=== PATIENT | female | born 1940 | race African-American/Black ===

== ENCOUNTER 2017-05-01 18:01 | Emergency (ER) | payer MEDICARE, OTHER ==
--- NOTE | 2017-05-01 19:09 | ED ---
General Adult HPI - General Chief complaint: Fall Stated complaint: Fall rt side injuries Time Seen by Provider: 05/01/17 18:51 Source: patient, family, RN notes reviewed Mode of arrival: wheelchair Limitations: no limitations - History of Present Illness Initial comments: 76-year-old female presents to the emergency Department chief complaint of fall. Patient states that she was walking out of the office and she tripped on the sidewalk and fell. Patient states that she hit the front of her face and does think that she may have lost consciousness for seconds. Patient states that she has had a mild headache. Patient states there is no neck pain. Patient states that there has been no nausea or vomiting. Patient states she doesn't appear to have some right shoulder pain as well as left wrist pain as well as bilateral knee pain. Patient states the pain is mild worse to movement or touch she has noticed a little bit of swelling over the areas. Patient was able to ambulate after the incident. Patient denies any use of blood thinners. Patient was concerned due to the fall she just feels that she hit. Hard so she thought that she should be evaluated. Patient denies any recent fever, chills, shortness of breath, chest pain, back pain, abdominal pain, nausea vomiting, numbness or tingling, dysuria or hematuria, constipation or diarrhea, visual changes, or any other current symptoms. - Related Data Home Medications Medication Instructions Recorded Confirmed Dorzolamide HCl/Timolol Maleat 1 drop BOTH EYES BID 03/02/16 05/01/17 [Cosopt Eye Drops] Travoprost [Travatan Z 0.004%] 1 drop BOTH EYES HS 03/02/16 05/01/17 Multivitamins, Thera [Multivitamin] 1 tab PO DAILY 03/30/16 05/01/17 HYDROcodone/APAP 10-325MG [[place] 1 tab PO Q6H PRN 05/01/17 05/01/17 10-325] Morphine Sulfate [Ms Contin] 30 mg PO Q8HR 05/01/17 05/01/17 tiZANidine HCL [Zanaflex] 4 mg PO BID 05/01/17 05/01/17 Previous Rx's Medication Instructions Recorded Pregabalin [Lyrica] 75 mg PO TID #90 cap 09/21/16 Allergies Allergy/AdvReac Type Severity Reaction Status Date / Time codeine Allergy Itching Verified 05/01/17 19:01 ibuprofen [From Motrin] Allergy Unknown Verified 05/01/17 19:01 ketorolac tromethamine Allergy Unknown Verified 05/01/17 19:01 [From Toradol] Tetanus Vaccines and Toxoid Allergy Unknown Verified 05/01/17 19:01 [Tetanus Vaccines & Toxoid] Childhood tramadol HCl [From Ultram] AdvReac Unknown Verified 05/01/17 19:01 Review of Systems ROS Statement: Those systems with pertinent positive or pertinent negative responses have been documented in the HPI. ROS Other: All systems not noted in ROS Statement are negative. Past Medical History Past Medical History: CVA/TIA, Eye Disorder, Fibromyalgia, GERD/Reflux, Hyperlipidemia, Memory Impairment, Musculoskeletal Disorder, Osteoarthritis (OA) , Rheumatoid Arthritis (RA), Sleep Apnea/CPAP/BIPAP Additional Past Medical History / Comment(s): CHRONIC BACK PAIN, GLAUCOMA, CATARACT RIGHT EYE, HX OF ANEMIA, NO C-PAP MACHINE AT THIS TIME, HX OF CVA X2 IN 2009-DENIES ANY WEAKNESS OR PARALYSIS. USES WALKER. History of Any Multi-Drug Resistant Organisms: None Reported Past Surgical History: Back Surgery, Hysterectomy, Joint Replacement, Orthopedic Surgery Additional Past Surgical History / Comment(s): HX OF AUTO [id number] WITH MULTIPLE FACE AND HEAD SURGERYS TITANIUM IMPLANTS MOUTH,RECONSTRUCTED CHIN, ORBITS,FOREHEAD.SKULL? PLATE BUT PT NOT SURE., PAM KNEE REPLACEMENT, PAM NEWSOME REPLACEMENT. (3) BACK FUSIONS AND (2) LAMINECTOMYS. LEFT CATARACT SURGERY .BREAST BX-NEG, COLONOSCOPY.09/01/16 BACK SURGERY. Past Anesthesia/Blood Transfusion Reactions: No Reported Reaction Past Psychological History: Anxiety, Depression Smoking Status: Former smoker Past Alcohol Use History: None Reported Past Drug Use History: None Reported - Past Family History Brother(s) Family Medical History: Cancer Sister(s) Family Medical History: Cancer General Exam - General Exam Comments Initial Comments: General: The patient is awake and alert, in no distress, and does not appear acutely ill. Eye: Pupils are equal, round and reactive to light, extra-ocular movements are intact; there is normal conjunctiva bilaterally. No signs of icterus. Ears, nose, mouth and throat: There are moist mucous membranes. Neck: The neck is supple, there is no tenderness. Cardiovascular: There is a regular rate and rhythm. No murmur, rub or gallop is appreciated. Respiratory: Lungs are clear to auscultation, respirations are non-labored, breath sounds are equal. No wheezes, stridor, rales, or rhonchi. Gastrointestinal: Soft, non-distended, non-tender abdomen without masses or organomegaly noted. There is no rebound or guarding present. No CVA tenderness. Bowel sounds are unremarkable. Back: There is no tenderness to palpation in the midline. There is no obvious deformity. No rashes noted. Musculoskeletal: Normal ROM, there is minimal tenderness to palpation of the right wrist no anatomical snuffbox tenderness. Patient does appear to have some tenderness over the anterior aspect of the right knee minimal to the left knee. Small abrasion to the left foot. No bony tenderness. There is no pedal edema. There is no calf tenderness or swelling. Sensation intact. Pulses equal bilaterally 2+. Neurological: CN II-XII intact, There are no obvious motor or sensory deficits. Coordination appears grossly intact. Speech is normal. Skin: Skin is warm and dry and no rashes or lesions are noted. Psychiatric: Cooperative, appropriate mood & affect, normal judgment. Limitations: no limitations Course Vital Signs 05/01/17 05/01/17 18:08 20:23 Temperature 98.0 F 97.5 F L Pulse Rate 90 84 Respiratory 18 16 Rate Blood Pressure 128/101 145/86 O2 Sat by Pulse 98 97 Oximetry Medical Decision Making - Medical Decision Making 76-year-old female presents emergency 5 chief complaint of fall. This time all imaging is reviewed and negative. This time we discussed patient most likely suffering from contusions. We discussed Tylenol we discussed ice. We discussed resting. We discussed appropriate follow-up and return parameters. Patient family are in agreement with the plan all questions have been answered. They will be discharged home. - Radiology Data Radiology results: report reviewed, image reviewed Disposition Clinical Impression: Nasal contusion, Fall, Contusion of right shoulder, Contusion, knee, Abrasion of foot, left, Minor head injury Disposition: HOME SELF-CARE Condition: Stable Instructions: Fall Prevention for Older Adults (ED), Head Injury (ED) Additional Instructions: Please use medication as discussed. Please follow up with family doctor if symptoms have not improved over the next two days. Please return to the emergency room if your symptoms increase or worsen or for any other concerns. Referrals: Memo Morales MD [Primary Care Provider] - 1-2 days Time of Disposition: 20:30
--- NOTE | 2017-05-01 20:17 | CT ---
EXAMINATION TYPE: CT facial bones wo con DATE OF EXAM: 05/01/2017 COMPARISON: NONE HISTORY: Fall today. Frontal, nasal and chin injury. CT DLP: 550.80 mGycm Automated exposure control for dose reduction was used. TECHNIQUE: CT scan of the sinuses is performed without contrast, axial images are obtained, coronal r eformatted images are also reviewed. FINDINGS: There is a plate with screws fixing the right hemimandible. Mandible otherwise appears inta ct. The zygomatic arches are normal. There are bilateral screws in the zygoma related to old fracture s. There is no evidence of a acute blowout fracture. Orbital margins are intact. There is slight depr ession of the floor of the left orbit consistent with an old minimal blowout fracture. There is mucosal thickening at the left ostiomeatal complex. The nasal bone appears intact. There is no evidence of an orbital mass. The globes are symmetric. IMPRESSION: No acute fracture seen. Left-sided mild maxillary sinusitis. Old left-sided blowout fract ure.
--- NOTE | 2017-05-01 20:20 | CT ---
EXAMINATION TYPE: CT brain kaelyn marsh DATE OF EXAM: 05/01/2017 COMPARISON: 08/17/[address] scan HISTORY: Fall today. Frontal, nasal and chin injury. CT DLP: 1613.40 mGycm Automated exposure control for dose reduction was used. TECHNIQUE: CT scan of the head and cervical spine are performed without contrast. FINDINGS: There is mild cerebral cortical atrophy. There is no mass effect nor midline shift. There is no sign of intracranial hemorrhage. The calvarium is intact. There is straightening of the cervical vertebra. There is mild anterior spurring at C5-6 C6-7. Facet joints are intact. I see no fracture. The skull base is intact. IMPRESSION: No acute intracranial abnormality. Cerebral atrophy without change. Mild spondylosis in the cervical spine with mild straightening. No fracture.
--- NOTE | 2017-05-01 20:21 | XR ---
EXAMINATION TYPE: XR shoulder complete RT DATE OF EXAM: 05/01/2017 COMPARISON: NONE HISTORY: Pain TECHNIQUE: 3 views FINDINGS: I see no fracture nor dislocation. There is mild spurring of the humeral head. IMPRESSION: Mild spurring. No fracture seen.
--- NOTE | 2017-05-01 20:23 | XR ---
EXAMINATION TYPE: XR knee complete bilateral DATE OF EXAM: 05/01/2017 COMPARISON: NONE HISTORY: Pain after fall TECHNIQUE: 7 views FINDINGS: There are bilateral total knee prostheses. I see no fracture. Components appear in anatomic position. IMPRESSION: No fracture seen. No sign of loosening.
--- NOTE | 2017-05-01 20:24 | XR ---
EXAMINATION TYPE: XR wrist complete LT DATE OF EXAM: 05/01/2017 COMPARISON: NONE HISTORY: Pain TECHNIQUE: 4 views FINDINGS: I see no fracture nor dislocation. Joint spaces are normal. IMPRESSION: Negative left wrist exam.
[2017-05-01 20:41] VITALS: BP 151/79; PULSE 81; RESP 18; TEMP 97.6
== END 2017-05-01 20:35 | disposition home or self-care (01) ==
LOC: EC 18:01
DX: S00.33XA Contusion of nose, initial encounter (principal); S40.011A Contusion of right shoulder, initial encounter; S80.02XA Contusion of left knee, initial encounter; S90.812A Abrasion, left foot, initial encounter; M25.532 Pain in left wrist; M25.561 Pain in right knee; M79.7 Fibromyalgia; M19.90 Unspecified osteoarthritis, unspecified site; M06.9 Rheumatoid arthritis, unspecified; Z96.653 Presence of artificial knee joint, bilateral; Z87.891 Personal history of nicotine dependence; Z88.5 Allergy status to narcotic agent; Z88.6 Allergy status to analgesic agent; Z88.7 Allergy status to serum and vaccine; Z79.891 Long term (current) use of opiate analgesic; Z79.899 Other long term (current) drug therapy; W10.1XXA Fall (on)(from) sidewalk curb, initial encounter; Y93.01 Activity, walking, marching and hiking; Y99.0 Civilian activity done for income or pay; Y92.59 Other trade areas as the place of occurrence of the external cause
CPT/HCPCS: 70450; 70486; 72125; 99284

== ENCOUNTER 2017-05-17 10:10 | Day surgery (SDC) | payer MEDICARE, OTHER ==
[2017-05-17] MEDS ORDERED: LACTATED RINGERS 1,000 ML IV SCH (11:21)
[2017-05-17] MEDS ORDERED: LIDOCAINE 1% 20 ML VIAL (10MG/ML) FOR IV START INTRADERMA PRN (11:21)
[2017-05-17 11:32] VITALS: TEMP 98.4
[2017-05-17] MEDS ORDERED: PROPOFOL 10 MG/ML 20 ML VIAL IV ONE (12:20)
--- NOTE | 2017-05-17 12:44 | P.PCN ---
Date of Procedure: 05/17/17 Preoperative Diagnosis: Postoperative Diagnosis: Procedure(s) Performed: Brief history: Patient is a pleasant 76-year-old -[place] female, scheduled for an elective upper endoscopy as well as colonoscopy as a part of evaluation of abdominal pain mostly the lower abdomen and occasional epigastric area associated with some change in bowel habits for the last several months duration. She denies any rectal bleeding, no nausea vomiting. Procedure performed: Esophagogastroduodenoscopy with biopsy Colonoscopy Preoperative diagnosis: Abdominal pain, change in bowel habits Anesthesia: MAC Procedure: After informed consent was obtained from the patient was brought into the endoscopy unit and IV sedation was administered by anesthesia under continuous monitoring. Initially upper endoscopy was done. The Olympus GF 160 video endoscope was inserted inserted into the mouth and esophagus intubated without any difficulty and was gradually advanced into the stomach and duodenum and carefully examined. The bulb and second part of the duodenum appeared normal. The scope was then withdrawn into the stomach adequately insufflated with air and upon careful examination the antrum had mild gastritis and biopsies were done from this area. The body, cardia and fundus appeared normal. The scope was then withdrawn into the esophagus. The GE junction was located at 40 cm to the incisors. It appeared regular with no erythema erosions or ulcerations. Rest of the esophagus appeared normal. Patient tolerated the procedure well. At this time the patient continued to remain sedation. Initial digital rectal examination was normal. Olympus CF 160 video colonoscope was then inserted into the rectum and gradually advanced to the cecum without any difficulty. Careful examination was performed as the scope was gradually being withdrawn. The prep was excellent. The cecum, ascending colon, transverse colon, descending colon, sigmoid colon and rectum appeared normal. scattered left- sided diverticulosis seen. Retroflexion was performed in the rectum and no lesions were noted. Patient tolerated the procedure well. Impression: 1. Upper endoscopy revealed mild antral gastritis but no evidence of esophagitis or peptic ulcer disease 2. Colonoscopy revealed left-sided diverticulosis but no evidence of colitis or colorectal neoplasia Recommendations: Findings of this examination were discussed with the patient as well as her family. She was advised to follow with the biopsy results. She'll be seen in office in 2-3 weeks. Implants: Indications for Procedure: Operative Findings: Description of Procedure:
[2017-05-17] MEDS ORDERED: MEPERIDINE 50 MG/ML SYRINGE IVP ONE (13:06)
[2017-05-17 14:36] VITALS: BP 120/68; PULSE 74; RESP 18
== END 2017-05-17 14:20 | disposition home or self-care (01) ==
LOC: ORWHC2ENDO 10:10
PROVIDERS: ATTEND Internal Medicine Gastroenterology
DX: K57.30 Diverticulosis of large intestine without perforation or abscess without bleeding (principal); K29.50 Unspecified chronic gastritis without bleeding; R19.4 Change in bowel habit; Z79.899 Other long term (current) drug therapy; Z88.5 Allergy status to narcotic agent; G89.29 Other chronic pain
CPT/HCPCS: 43239; 88305; 88342

== ENCOUNTER → 2017-06-23 | Outpatient (CLI) | payer MEDICARE, OTHER ==
[2017-06-23 10:12] LABS: Blood Urea Nitrogen 20 mg/dL (7-17); Non-African American GFR(MDRD) >60 (>60 ml/min/1.73 sqM)
--- NOTE | 2017-06-23 13:46 | CT ---
EXAMINATION TYPE: CT abdomen pelvis w con DATE OF EXAM: 06/23/2017 COMPARISON: NONE HISTORY: Abdominal pain CT DLP: 1253 mGycm Automated exposure control for dose reduction was used. CONTRAST: CT scan of the abdomen pelvis is performed with IV Contrast, patient injected with 100 ml mL of Omnip aque 300. FINDINGS- LUNG BASES- No significant abnormality is appreciated. LIVER/GB-the gallbladder is dilated and there is intrahepatic delayed ductal dilation. There is a sim ple hepatic cyst within the right lobe measuring 1.4 cm. Additional hepatic cyst measuring 8 mm in th e dome of the liver. No definite gallbladder stone or biliary ductal stone. PANCREAS- No gross abnormality is seen. SPLEEN- No gross abnormality is seen. ADRENALS- No gross abnormality is seen. KIDNEYS/BLADDER- no hydronephrosis nephrolithiasis or renal mass. BOWEL- no bowel dilatation. Gas pattern nonspecific with no obstruction. Extensive retained fecal de bris within the right colon and cecum. LYMPH NODES- No greater than 1cm abdominal or pelvic lymph nodes areappreciated. OSSEOUS STRUCTURES-postsurgical changes involving the vertebral column noted. OTHER- there is a 2.4 cm cyst in the right adnexa. Uterus is not present. May represent a fallopian tube remnant or paraovarian cyst. If the ovaries were left in position ovarian cyst would also be in the differential diagnosis. Finding was present on the previous CT scan therefore likely benign. IMPRESSION- 1. The gallbladder is distended and there is intrahepatic biliary dilation. Correlate clinically. 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 2. Extensive retained fecal debris throughout the right colon correlate for constipation. 3. 2.4 cm right adnexal cyst as discussed above. Differential diagnosis includes ovarian cyst, paraov michelle cyst or fallopian tube remnant dilation.
== END | disposition home or self-care (01) ==
LOC: RADCTMAIN 09:20
PROVIDERS: ATTEND Internal Medicine Gastroenterology
DX: N83.8 Other noninflammatory disorders of ovary, fallopian tube and broad ligament (principal); K82.8 Other specified diseases of gallbladder
CPT/HCPCS: 82565; 84520; 74177; 36415; Q9967

== ENCOUNTER 2017-08-21 14:12 | Emergency (ER) | payer MEDICARE, OTHER ==
[2017-08-21 14:23] VITALS: BP 139/88; PULSE 88; RESP 20; TEMP 97.5
--- NOTE | 2017-08-21 14:49 | ED ---
Lower Extremity Injury HPI - General Chief Complaint: Extremity Injury, Lower Stated Complaint: fall/knee swelling Time Seen by Provider: 08/21/17 14:41 Source: patient, RN notes reviewed Mode of arrival: wheelchair Limitations: physical limitation - History of Present Illness Initial Comments: This a 77-year-old female presents emergency Department chief complaint left knee pain. Patient states that she is trying to into the bus states that she fell forward onto her left knee. Patient states she had a left knee replacement in 2011. Patient states she feels a pinching sensation in her anterior aspect of her knee. She states while is swollen though she did apply some ice the area. Patient is a chronic pain meds. Denies head injury no LOC. - Related Data Home Medications Medication Instructions Recorded Confirmed Dorzolamide HCl/Timolol Maleat 1 drop BOTH EYES BID 03/02/16 05/17/17 [Cosopt Eye Drops] Travoprost [Travatan Z 0.004%] 1 drop BOTH EYES HS 03/02/16 05/17/17 Multivitamins, Thera [Multivitamin] 1 tab PO DAILY 03/30/16 05/17/17 HYDROcodone/APAP 10-325MG [[place] 1 tab PO Q6H PRN 05/01/17 05/17/17 10-325] Morphine Sulfate [Ms Contin] 30 mg PO Q8HR 05/01/17 05/17/17 tiZANidine HCL [Zanaflex] 4 mg PO BID 05/01/17 05/17/17 Pregabalin [Lyrica] 25 mg PO TID 05/17/17 05/17/17 Allergies Allergy/AdvReac Type Severity Reaction Status Date / Time codeine Allergy Itching Verified 08/21/17 14:23 ibuprofen [From Motrin] Allergy Unknown Verified 08/21/17 14:23 ketorolac tromethamine Allergy Unknown Verified 08/21/17 14:23 [From Toradol] tramadol HCl [From Ultram] AdvReac Unknown Verified 08/21/17 14:23 tuberculin,PPD,multi-puncture AdvReac Unknown Verified 08/21/17 14:23 Review of Systems ROS Statement: Those systems with pertinent positive or pertinent negative responses have been documented in the HPI. ROS Other: All systems not noted in ROS Statement are negative. Past Medical History Past Medical History: CVA/TIA, Eye Disorder, Fibromyalgia, GERD/Reflux, Hyperlipidemia, Memory Impairment, Musculoskeletal Disorder, Osteoarthritis (OA) , Rheumatoid Arthritis (RA), Sleep Apnea/CPAP/BIPAP Additional Past Medical History / Comment(s): CHRONIC BACK PAIN, GLAUCOMA, CATARACT RIGHT EYE, HX OF ANEMIA, NO C-PAP MACHINE AT THIS TIME, HX OF CVA X2 IN 2010-DENIES ANY WEAKNESS OR PARALYSIS. USES WALKER. History of Any Multi-Drug Resistant Organisms: None Reported Past Surgical History: Back Surgery, Hysterectomy, Joint Replacement, Orthopedic Surgery Additional Past Surgical History / Comment(s): HX OF AUTO [id number] WITH MULTIPLE FACE AND HEAD SURGERYS TITANIUM IMPLANTS MOUTH,RECONSTRUCTED CHIN, ORBITS,FOREHEAD.SKULL? PLATE BUT PT NOT SURE., PAM KNEE REPLACEMENT, PAM NEWSOME REPLACEMENT. (3) BACK FUSIONS AND (2) LAMINECTOMYS. LEFT CATARACT SURGERY .BREAST BX-NEG, COLONOSCOPY.09/01/16 BACK SURGERY. Past Anesthesia/Blood Transfusion Reactions: No Reported Reaction Past Psychological History: Anxiety, Depression Smoking Status: Former smoker Past Alcohol Use History: None Reported Past Drug Use History: None Reported - Past Family History Brother(s) Family Medical History: Cancer Sister(s) Family Medical History: Cancer General Exam Limitations: physical limitation General appearance: alert, in no apparent distress Respiratory exam: Present: normal lung sounds bilaterally. Absent: respiratory distress, wheezes, rales, rhonchi, stridor Cardiovascular Exam: Present: regular rate, normal rhythm, normal heart sounds. Absent: systolic murmur, diastolic murmur, rubs, gallop, clicks Extremities exam: Present: other (Left knee there is full range of motion there is old surgical scar noted, patient has mild swelling on the anterior aspect with no obvious deformity no laxity there is mild tenderness to the left knee to the anterior lateral aspect, neurovascularly intact) Skin exam: Present: warm, dry, intact, normal color. Absent: rash Course Vital Signs 08/21/17 14:20 Temperature 97.5 F L Pulse Rate 88 Respiratory 20 Rate Blood Pressure 139/88 O2 Sat by Pulse 99 Oximetry Medical Decision Making - Medical Decision Making 77-year-old female was in the emergency room for fall left knee pain. Patient is stable Please were noted. Patient has good range of motion neurovascular intact. Patient be discharged return parameters were discussed. Patient is advised to rest, ice and elevate. She was also advised to follow up with her physician who performed the surgery. Disposition Clinical Impression: Contusion of left knee Disposition: HOME SELF-CARE Condition: Stable Instructions: Knee Pain (ED) Additional Instructions: Please return to the Emergency Department if symptoms worsen or any other concerns. Referrals: Memo Morales MD [Primary Care Provider] - 1-2 days Time of Disposition: 15:14
--- NOTE | 2017-08-21 15:02 | XR ---
Left knee HISTORY: Pain, fall 3 views of the left knee correlated to prior exam 05/01/2017 Patient is status post left knee arthroplasty. There is anatomic alignment. Bone mineralization is st able. No fracture or dislocation evident. Suprapatellar increased density is present. Small ossific d ensities present at this level are well-corticated and not felt likely to be acute. IMPRESSION: Stable postoperative findings. Joint effusion. Difficult to exclude small loose bodies.
== END 2017-08-21 15:20 | disposition home or self-care (01) ==
LOC: EC 14:12
DX: S80.02XA Contusion of left knee, initial encounter (principal); M79.7 Fibromyalgia; Z87.891 Personal history of nicotine dependence; Z88.5 Allergy status to narcotic agent; Z88.6 Allergy status to analgesic agent; Z91.09 Other allergy status, other than to drugs and biological substances; Z79.891 Long term (current) use of opiate analgesic; Z79.899 Other long term (current) drug therapy; W19.XXXA Unspecified fall, initial encounter
CPT/HCPCS: 99283

== ENCOUNTER 2018-02-09 08:42 | Inpatient (IN) | payer MEDICARE, OTHER ==
[2018-02-09] MEDS ORDERED: RX INFO: IV CONTRAST WAS GIVEN 1 EACH MISC MISCELLANE PRN (09:05)
[2018-02-09] MEDS ORDERED: SODIUM CHLORIDE 0.9% 1,000 ML IV STA (09:05)
--- NOTE | 2018-02-09 09:08 | ED ---
General Adult HPI - General Chief complaint: Abdominal Pain Stated complaint: Abd pain, weakness Time Seen by Provider: 02/09/18 08:55 Source: patient, RN notes reviewed Mode of arrival: wheelchair Limitations: no limitations - History of Present Illness Initial comments: Patient 77-year-old female presenting to the emergency room today with a chief complaint of abdominal pain over the last year. She does admit that she's been following up with doctor tomorrow for this. She states she had a CT of the abdomen over a year ago. States that she had both upper and lower scopes performed. Sit still experiencing discomfort over the last 2 weeks of appetite is been decreased. States she's lost 11 pounds. Patient denies anything that makes the pain better or worse. Describes it as a crampy type pain that comes and goes. States it starts in the left lower side radiates over to the right. Patient states it does remind her of some symptoms that she had years ago and is unsure if it was a diverticulitis. Patient mitts that she had diarrhea 2 weeks ago presented had a bowel movement over the last 6 days. Patient denies any recent fever, chills, shortness of breath, chest pain, dysuria or hematuria , headaches or visual changes, or any other complaints. - Related Data Home Medications Medication Instructions Recorded Confirmed Dorzolamide HCl/Timolol Maleat 2 drop BOTH EYES BID 03/02/16 02/09/18 [Cosopt Eye Drops] Travoprost [Travatan Z 0.004%] 1 drop BOTH EYES HS 03/02/16 02/09/18 HYDROcodone/APAP 10-325MG [Carlotta 1 tab PO QID PRN 05/01/17 02/09/18 10-325] Morphine Sulfate [Ms Contin] 30 mg PO Q8H 05/01/17 02/09/18 tiZANidine HCL [Zanaflex] 4 mg PO TID 05/01/17 02/09/18 Ciclopirox [Penlac] 1 applic TOPICAL Q72H 02/09/18 02/09/18 Pregabalin [Lyrica] 50 mg PO BID 02/09/18 02/09/18 Allergies Allergy/AdvReac Type Severity Reaction Status Date / Time codeine Allergy Itching Verified 02/09/18 09:24 ibuprofen [From Motrin] Allergy Unknown Verified 02/09/18 09:24 ketorolac tromethamine Allergy Unknown Verified 02/09/18 09:24 [From Toradol] tramadol HCl [From Ultram] AdvReac Unknown Verified 02/09/18 09:24 tuberculin,PPD,multi-puncture AdvReac Unknown Verified 02/09/18 09:24 Review of Systems ROS Statement: Those systems with pertinent positive or pertinent negative responses have been documented in the HPI. ROS Other: All systems not noted in ROS Statement are negative. Past Medical History Past Medical History: CVA/TIA, Eye Disorder, Fibromyalgia, GERD/Reflux, Hyperlipidemia, Memory Impairment, Musculoskeletal Disorder, Osteoarthritis (OA) , Rheumatoid Arthritis (RA), Sleep Apnea/CPAP/BIPAP Additional Past Medical History / Comment(s): CHRONIC BACK PAIN, GLAUCOMA, CATARACT RIGHT EYE, HX OF ANEMIA, NO C-PAP MACHINE AT THIS TIME, HX OF CVA X2 IN 2009-DENIES ANY WEAKNESS OR PARALYSIS. USES WALKER. History of Any Multi-Drug Resistant Organisms: None Reported Past Surgical History: Back Surgery, Hysterectomy, Joint Replacement, Orthopedic Surgery Additional Past Surgical History / Comment(s): HX OF AUTO [id number] WITH MULTIPLE FACE AND HEAD SURGERYS TITANIUM IMPLANTS MOUTH,RECONSTRUCTED CHIN, ORBITS,FOREHEAD.SKULL? PLATE BUT PT NOT SURE., PAM KNEE REPLACEMENT, PAM NEWSOME REPLACEMENT. (3) BACK FUSIONS AND (2) LAMINECTOMYS. LEFT CATARACT SURGERY .BREAST BX-NEG, COLONOSCOPY.09/01/16 BACK SURGERY. Past Anesthesia/Blood Transfusion Reactions: No Reported Reaction Past Psychological History: Anxiety, Depression Smoking Status: Former smoker Past Alcohol Use History: None Reported Past Drug Use History: None Reported - Past Family History Brother(s) Family Medical History: Cancer Sister(s) Family Medical History: Cancer General Exam - General Exam Comments Initial Comments: General: The patient is awake and alert, in no distress, and does not appear acutely ill. Eye: Pupils are equal, round and reactive to light, extra-ocular movements are intact. No nystagmus. There is normal conjunctiva bilaterally. No signs of icterus. Ears, nose, mouth and throat: There are moist mucous membranes and no oral lesions. Neck: The neck is supple, there is no tenderness or JVD. Cardiovascular: There is a regular rate and rhythm. No murmur, rub or gallop is appreciated. Respiratory: Lungs are clear to auscultation, respirations are non-labored, breath sounds are equal. No wheezes, stridor, rales, or rhonchi. Gastrointestinal: Abdomen soft on palpation. Patient does have tenderness both right and left lower quadrants. Patient tender left CVA. No rebound tenderness. No guarding. Musculoskeletal: Normal ROM, no tenderness. Strength 5/5. Sensation intact. Pulses equal bilaterally 2+. Neurological: A&O x 3. CN II-XII intact, There are no obvious motor or sensory deficits. Coordination appears grossly intact. Speech is normal. Skin: Skin is warm and dry and no rashes or lesions are noted. Psychiatric: Cooperative, appropriate mood & affect, normal judgment. Limitations: no limitations Course Vital Signs 02/09/18 02/09/18 02/09/18 08:45 10:18 10:27 Temperature 98.6 F Pulse Rate 92 77 76 Respiratory 17 20 18 Rate Blood Pressure 140/74 169/103 139/78 O2 Sat by Pulse 100 100 97 Oximetry 02/09/18 02/09/18 02/09/18 12:05 13:56 14:20 Temperature Pulse Rate 76 75 78 Respiratory 18 18 18 Rate Blood Pressure 190/98 170/80 144/67 O2 Sat by Pulse 98 99 98 Oximetry 02/09/18 14:51 Temperature Pulse Rate 75 Respiratory 18 Rate Blood Pressure 183/90 O2 Sat by Pulse 98 Oximetry - Reevaluation(s) Reevaluation #1: 02/09/18 10:18 Patient daughter at bedside came on [facility] nursing staff that her mother was expressing some chest discomfort. She describes it on left side of the chest wall rating to the armpit. Patient states it just started. She denies any other complaints. EKG reviewed at 1013: Shows normal EKG no acute abnormality. Patient will be given aspirin and sublingual nitro to see if it resolves her pain. Labs are pending cardiac enzymes have been added. EKG Findings - EKG Comments: EKG Findings:: EKG performed at 1013: Shows normal sinus rhythm at 75 bpm. MN interval 148. QRS 86. QT/QTC 382/426. No acute ST changes. Repeat EKG performed at 1209: Shows normal sinus rhythm at 68 beats per minute. MN interval 152. QRS 84. QT/QTc is 412/438. No acute change. Medical Decision Making - Medical Decision Making Patient's CT the abdomen and pelvis reviewed shows 1 Location of the cecum within the mid abdomen extending to the left mid abdomen. Consideration is for wandering cecum or currently decompressed volvulus as there is no current obstruction identified. 2. 2.7 cm right adnexal cystic mass, enlarged from prior. Nonemergent further evaluation with pelvic ultrasound is recommended to evaluate for cystic ovarian neoplasm as ovarian cyst should not be present in the patient's age group. As read by radiologist Dr. Toure. Patient's labs been reviewed. Negative cardiac enzymes. Patient did begin to have chest pain here in emergency room. Screening chest pain free at this time she was given nitro and aspirin. Patient urinalysis does show evidence for infection with positive nitrates and white cells. Will be started on Rocephin here in emergency room. - Lab Data Result diagrams: 02/09/18 10:57 02/09/18 10:57 Lab Results 02/09/18 02/09/18 02/09/18 Range/Units 09:40 10:15 10:57 WBC 5.5 (3.8-10.6) k/uL RBC 4.49 (3.80-5.40) m/uL Hgb 11.7 (11.4-16.0) gm/dL Hct 36.2 (34.0-46.0) % MCV 80.6 (80.0-100.0) fL MCH 26.1 (25.0-35.0) pg MCHC 32.4 (31.0-37.0) g/dL RDW 13.5 (11.5-15.5) % Plt Count 187 (150-450) k/uL Neutrophils % 49 % Lymphocytes % 40 % Monocytes % 5 % Eosinophils % 2 % Basophils % 0 % Neutrophils # 2.7 (1.3-7.7) k/uL Lymphocytes # 2.2 (1.0-4.8) k/uL Monocytes # 0.3 (0-1.0) k/uL Eosinophils # 0.1 (0-0.7) k/uL Basophils # 0.0 (0-0.2) k/uL Sodium (137-145) mmol/L Potassium (3.5-5.1) mmol/L Chloride (98-107) mmol/L Carbon Dioxide (22-30) mmol/L Anion Gap mmol/L BUN (7-17) mg/dL Creatinine (0.52-1.04) mg/dL Est GFR (CKD-EPI)AfAm (>60 ml/min/1.73 sqM) Est GFR (CKD-EPI)NonAf (>60 ml/min/1.73 sqM) Glucose (74-99) mg/dL POC Glucose (mg/dL) 102 H (75-99) mg/dL POC Glu Missile Tracking Technician ID Emelia aTpia Calcium (8.4-10.2) mg/dL Total Bilirubin (0.2-1.3) mg/dL AST (14-36) U/L ALT (9-52) U/L Alkaline Phosphatase (38-126) U/L Total Creatine Kinase (30-135) U/L CK-MB (CK-2) (0.0-2.4) ng/mL CK-MB (CK-2) Rel Index Troponin I (0.000-0.034) ng/mL Total Protein (6.3-8.2) g/dL Albumin (3.5-5.0) g/dL Amylase (30-110) U/L Lipase (23-300) U/L Urine Color Yellow Urine Appearance Cloudy H (Clear) Urine pH 5.5 (5.0-8.0) Ur Specific [place] 1.015 (1.001-1.035) Urine Protein Trace H (Negative) Urine Glucose (UA) Negative (Negative) Urine Ketones Negative (Negative) Urine Blood Negative (Negative) Urine Nitrite Positive H (Negative) Urine Bilirubin Negative (Negative) Urine Urobilinogen <2.0 (<2.0) mg/dL Ur Leukocyte Esterase Large H (Negative) Urine RBC 1 (0-5) /hpf Urine WBC 58 H (0-5) /hpf Ur Squamous Epith Cells <1 (0-4) /hpf Urine Bacteria Many H (None) /hpf Hyaline Casts 12 H (0-2) /lpf Urine Mucus Few H (None) /hpf 02/09/18 02/09/18 Range/Units 10:57 10:57 WBC (3.8-10.6) k/uL RBC (3.80-5.40) m/uL Hgb (11.4-16.0) gm/dL Hct (34.0-46.0) % MCV (80.0-100.0) fL MCH (25.0-35.0) pg MCHC (31.0-37.0) g/dL RDW (11.5-15.5) % Plt Count (150-450) k/uL Neutrophils % % Lymphocytes % % Monocytes % % Eosinophils % % Basophils % % Neutrophils # (1.3-7.7) k/uL Lymphocytes # (1.0-4.8) k/uL Monocytes # (0-1.0) k/uL Eosinophils # (0-0.7) k/uL Basophils # (0-0.2) k/uL Sodium 142 (137-145) mmol/L Potassium 4.9 (3.5-5.1) mmol/L Chloride 106 (98-107) mmol/L Carbon Dioxide 25 (22-30) mmol/L Anion Gap 11 mmol/L BUN 13 (7-17) mg/dL Creatinine 0.59 (0.52-1.04) mg/dL Est GFR (CKD-EPI)AfAm >90 (>60 ml/min/1.73 sqM) Est GFR (CKD-EPI)NonAf >90 (>60 ml/min/1.73 sqM) Glucose 87 (74-99) mg/dL POC Glucose (mg/dL) (75-99) mg/dL POC Glu Missile Tracking Technician ID Calcium 8.9 (8.4-10.2) mg/dL Total Bilirubin 0.5 (0.2-1.3) mg/dL AST 34 (14-36) U/L ALT 24 (9-52) U/L Alkaline Phosphatase 72 (38-126) U/L Total Creatine Kinase 83 (30-135) U/L CK-MB (CK-2) 0.7 (0.0-2.4) ng/mL CK-MB (CK-2) Rel Index 0.8 Troponin I <0.012 (0.000-0.034) ng/mL Total Protein 7.2 (6.3-8.2) g/dL Albumin 4.1 (3.5-5.0) g/dL Amylase 60 (30-110) U/L Lipase 18 L (23-300) U/L Urine Color Urine Appearance (Clear) Urine pH (5.0-8.0) Ur Specific [place] (1.001-1.035) Urine Protein (Negative) Urine Glucose (UA) (Negative) Urine Ketones (Negative) Urine Blood (Negative) Urine Nitrite (Negative) Urine Bilirubin (Negative) Urine Urobilinogen (<2.0) mg/dL Ur Leukocyte Esterase (Negative) Urine RBC (0-5) /hpf Urine WBC (0-5) /hpf Ur Squamous Epith Cells (0-4) /hpf Urine Bacteria (None) /hpf Hyaline Casts (0-2) /lpf Urine Mucus (None) /hpf Disposition Clinical Impression: UTI (urinary tract infection), Abdominal pain, Chest pain, Pelvic mass Disposition: ADMITTED IP TO THIS HOSP Condition: Stable Referrals: Memo Morales MD [Primary Care Provider] - 1-2 days Time of Disposition: 14:34
[2018-02-09 09:53] LABS: Appearance,Urine Cloudy (Clear); Bacteria,Urine Many /hpf; Bilirubin,Urine Negative (Negative); Blood,Urine Negative (Negative); Color,Urine Yellow; Glucose,Urine (UA) Negative (Negative); Hyaline Casts,Urine 12 /lpf (0-2); Ketones,Urine Negative (Negative); Leukocyte Esterase,Urine Large (Negative); Mucus,Urine Few /hpf; Nitrite,Urine Positive (Negative); PH, Urine 5.5 (5.0-8.0); Protein,Urine Trace (Negative); RBC,Urine 1 /hpf (0-5); Specific Gravity,Urine 1.015 (1.001-1.035); Squamous Epithelial Cell,Urine <1 /hpf (0-4); Urobilinogen,Urine <2.0 mg/dL (<2.0); WBC,Urine 58 /hpf (0-5)
[2018-02-09] MEDS ORDERED: NITROGLYCERIN SL TABS 0.4 MG TAB SUBLINGUAL STA (10:17)
[2018-02-09] MEDS ORDERED: ASPIRIN 81 MG PO STA (10:17)
[2018-02-09 10:30] LABS: Glucose,Whole Blood 102 mg/dL (75-99)
[2018-02-09 11:16] LABS: Basophils % (A) 0 %; Eosinophils # (A) 0.1 k/uL (0-0.7); Eosinophils % (A) 2 %; HCT 36.2 % (34.0-46.0); HGB 11.7 gm/dL (11.4-16.0); Lymphocytes # (A) 2.2 k/uL (1.0-4.8); Lymphocytes % (A) 40 %; MCH 26.1 pg (25.0-35.0); MCHC 32.4 g/dL (31.0-37.0); MCV 80.6 fL (80.0-100.0); Mean Platelet Volume 7.4; Monocytes # (A) 0.3 k/uL (0-1.0); Monocytes % (A) 5 %; Neutrophils # (A) 2.7 k/uL (1.3-7.7); Neutrophils % (A) 49 %; Platelet Count 187 k/uL (150-450); RBC 4.49 m/uL (3.80-5.40); RDW 13.5 % (11.5-15.5); WBC 5.5 k/uL (3.8-10.6)
[2018-02-09 11:38] LABS: Creatine Kinase 83 U/L (30-135)
[2018-02-09 11:51] LABS: Creatine Kinase MB 0.7 ng/mL (0.0-2.4); Troponin I <0.012 ng/mL (0.000-0.034)
[2018-02-09 12:15] LABS: ALT 24 U/L (9-52); AST 34 U/L (14-36); Albumin 4.1 g/dL (3.5-5.0); Alkaline Phosphatase 72 U/L (38-126); Amylase 60 U/L (30-110); Anion Gap 11 mmol/L; Blood Urea Nitrogen 13 mg/dL (7-17); Calcium 8.9 mg/dL (8.4-10.2); Carbon Dioxide 25 mmol/L (22-30); Chloride 106 mmol/L (98-107); Glucose 87 mg/dL (74-99); Lipase 18 U/L (23-300); Potassium 4.9 mmol/L (3.5-5.1); Sodium 142 mmol/L (137-145); Total Bilirubin 0.5 mg/dL (0.2-1.3); Total Protein 7.2 g/dL (6.3-8.2)
[2018-02-09] MEDS ORDERED: MORPHINE SULFATE 4 MG/ML SYRINGE IVP STA ×2 (12:53→14:50)
--- NOTE | 2018-02-09 14:10 | CT ---
EXAMINATION TYPE: CT abdomen pelvis w con DATE OF EXAM: 02/09/2018 HISTORY: c/o abdominal pain and cramping CT DLP: 1210mGycm Automated Exposure Control for Dose Reduction was Utilized. CONTRAST: CT scan of the abdomen and pelvis is performed with IV Contrast, patient injected with 100 mL of Isov ue 300. COMPARISON: None. FINDINGS: LUNG BASES: Minimal bibasilar subsegmental atelectasis. LIVER/GB: Numerous hypoattenuated subcentimeter hepatic lesions were seen on the prior exam of 017 and addition to intrahepatic and extra hepatic biliary ductal dilatation. The largest hepatic cys t is seen within segment IVb measuring 1.5 cm. These findings are also similar to the prior exam of . PANCREAS: There is pancreatic probable atrophy without ductal dilatation. SPLEEN: No significant abnormality is seen. ADRENALS: No significant abnormality is seen. KIDNEYS: Kidneys enhance symmetrically without hydronephrosis. BOWEL: The cecum is grossly displaced within the mid abdomen to the left mid abdomen with the appendi x seen on the left. However no proximal dilatation of small bowel is identified or twisting to indica te current volvulus. Large amount retained colonic stool is noted. There is slight obscuration second patricia to extensive spray artifact from lumbar fusion. Numerous colonic diverticula are present without pericolonic fat stranding UTERUS/ADNEXA: There is a 2.8 cm cystic lesion within the right adnexa, enlarged from the prior. Uter us appears surgically absent or significantly atrophic LYMPH NODES: No greater than 1cm abdominal or pelvic lymph nodes are appreciated. OSSEOUS STRUCTURES: Multilevel degenerative change and postsurgical change are seen of the spine. No suspicious osseous lesion.. IMPRESSION: 1. Grossly abnormal location of the cecum within the mid abdomen extending to the left mid abdomen. C onsideration is for wandering cecum or currently decompressed volvulus as there is no current obstruc tion identified. 2. 2.7 cm right adnexal cystic mass, enlarged from the prior. Nonemergent further evaluation with pel savi ultrasound is recommended to evaluate for cystic ovarian neoplasm is ovarian cyst should not be p resent in this patient's age group.
[2018-02-09] MEDS ORDERED: cefTRIAXone IN SWFI 1,000 MG/10 ML SYRINGE IVP STA (14:52)
[2018-02-09] MEDS ORDERED: ONDANSETRON 4 MG/2 ML VIAL IVP PRN (15:01)
[2018-02-09] MEDS ORDERED: NALOXONE 0.4 MG/ML 1 ML VIAL IV PRN (15:01)
[2018-02-09] MEDS ORDERED: MORPHINE SULFATE 4 MG/ML SYRINGE IV PRN (15:01)
[2018-02-09] MEDS ORDERED: SODIUM CHLORIDE 0.9% 1,000 ML IV ONE (15:01)
[2018-02-09] MEDS ORDERED: NITROGLYCERIN SL TABS 0.4 MG TAB SUBLINGUAL PRN (15:20)
[2018-02-09] MEDS ORDERED: hydrALAZINE HCL 20 MG/ML 1 ML VIAL IVP STA (16:18)
[2018-02-09] MEDS: LORazepam 2 MG/ML INJ IV PRN (16:24)
[2018-02-09 17:46] LABS: Creatine Kinase 96 U/L (30-135)
[2018-02-09 17:59] LABS: Creatine Kinase MB 0.8 ng/mL (0.0-2.4); Troponin I <0.012 ng/mL (0.000-0.034)
[2018-02-09 23:09] LABS: Creatine Kinase 88 U/L (30-135)
[2018-02-09 23:22] LABS: Creatine Kinase MB 0.6 ng/mL (0.0-2.4); Troponin I <0.012 ng/mL (0.000-0.034)
--- NOTE | 2018-02-10 04:39 | HP ---
HISTORY AND PHYSICAL DATE OF SERVICE: 02/09/2018. CHIEF COMPLAINT: Abdominal pain and constipation. I am covering for Dr. Morales. HISTORY OF PRESENT ILLNESS: This 77-year-old woman with a past medical history of fibromyalgia, GERD, history of DJD, history of rheumatoid arthritis, chronic pain syndrome, anxiety, depression being followed by Dr. Morales in the outpatient setting. The patient has been having abdominal discomfort for the last 10 days. Patient had significantly reduced p.o. intake. The pain was starting in the lower part, like a bandlike sensation. The patient apparently lost several pounds and because of increased abdominal pain, distention and other issues, the patient came to [facility] and was admitted for evaluation and treatment. The patient had in [address] Spann including upper and lower endoscopes which did not show any acute abnormality. There is no history of fever, rigors or chills. No history of headache, loss of consciousness, seizures. PAST MEDICAL HISTORY: History fibromyalgia, GERD, hyperlipidemia, history of memory impairment, DJD, rheumatoid arthritis. MEDICATIONS: Home medications are: 1. Zanaflex 4 mg p.o. t.i.d. 2. Travatan 0.04% 1 drop both eyes q.h.s. 3. Lyrica 50 mg b.i.d. 4. MS Contin 30 mg q.8h. 5. [place] 1 tablet q.i.d. p.r.n. 6. Cosopt 2 drops b.i.d. 7. Penlac 1 application q.72h hours. ALLERGIES: ARE CODEINE, IBUPROFEN, KETORALAC, ULTRAM . FAMILY HISTORY: History of cancer in the family. SOCIAL HISTORY: Previous history of smoking. No alcohol intake. REVIEW OF SYSTEMS: ENT: No diminished vision or hearing. CARDIOVASCULAR: No angina or palpitations. Respiratory: No cough or hemoptysis. GI as mentioned earlier. : No dysuria. Nervous system: No numbness, weakness. Allergy/ Immunology: No asthma or hayfever. Musculoskeletal as mentioned earlier. Hematology/ Oncology: No history of anemia. Endocrine no history of diabetes or hypothyroidism. CONSTITUTIONAL: As mentioned earlier. Dermatology: Negative. Rheumatology: Negative. Psychiatry: As mentioned earlier. PHYSICAL EXAM: Patient is alert, oriented x3. Pulse is 81, blood pressure 120/50, respiratory 20, temperature 98.1, pulse ox 98% 2 L. HEENT: Conjunctivae normal. Oral mucosa moist. Neck is no jugular venous distention. No carotid bruit. No lymph node enlargement. Cardiovascular system: S1, S2. No S3, no S4. Respiratory: Breath sounds diminished in the bases. No rhonchi. No crackles. ABDOMEN: Soft. Mild diffuse discomfort on palpation. No guarding. No rigidity. No mass palpable. Bowel sounds present. No ascites. Legs: No edema and no swelling. NERVOUS SYSTEM: Higher functions as mentioned. Moves all 4 limbs. No focal motor or sensory deficits. Lymphatics: No lymph nodes palpable in the neck, axillae or groin. SKIN: No ulcer, rashes or bleeding. LABS: CBC within normal limits and CMP within normal limits. UA noted. CT scan of the abdomen and pelvis was noted which showed grossly abnormal occasional cecum in the mid abdomen, in the left mid abdomen, wandering cecum or decompressed volvulus and constipation. ASSESSMENT: 1. Abdominal pain and constipation possibly secondary to constipation. 2. Rule out volvulus or displaced wandering cecum. 3. 2.7 cm right adnexal cystic mass. 4. Urinary tract infection. 5. History of cerebrovascular accident, transient ischemic attack. 6. Fibromyalgia. 7. Gastroesophageal reflux disease. 8. Hyperlipidemia. 9. Degenerative joint disease. 10.Rheumatoid arthritis. 11.Chronic pain syndrome. 12.Sleep apnea. 13.Anxiety, depression. 14.Remote history of nicotine dependence. RECOMMENDATIONS AND DISCUSSION: This 77-year-old woman who presented with multiple complex medical issues, we will monitor the patient closely, continue the current medications, symptomatic treatment, management and will initiate continue the broad-spectrum IV antibiotics. Otherwise I would recommend a gastroenterology consultation with Dr. Spann for continued followup. Otherwise continue the home medications. Guarded prognosis because of multiple complex medical issues. Further recommendations to follow. A copy of dictation being forwarded to Dr. Morales who is the primary physician. DVT prophylaxis. See orders for further details. MMODL / IJN: [id number] / MTDD
[2018-02-10] MEDS: LORazepam 2 MG/ML INJ IV PRN ×2 (04:50→16:16)
[2018-02-10 05:53] LABS: ALT 26 U/L (9-52); AST 21 U/L (14-36); Albumin 3.8 g/dL (3.5-5.0); Alkaline Phosphatase 67 U/L (38-126); Anion Gap 11 mmol/L; Blood Urea Nitrogen 11 mg/dL (7-17); Calcium 9.3 mg/dL (8.4-10.2); Carbon Dioxide 27 mmol/L (22-30); Chloride 104 mmol/L (98-107); Cholesterol 206 mg/dL (<200); Glucose 90 mg/dL (74-99); HDL Cholesterol 36 mg/dL (40-60); LDL Cholesterol,Calculated 147 mg/dL (0-99); Potassium 3.8 mmol/L (3.5-5.1); Sodium 142 mmol/L (137-145); Total Bilirubin 0.3 mg/dL (0.2-1.3); Total Protein 6.5 g/dL (6.3-8.2); Triglycerides 116 mg/dL (<150)
[2018-02-10] MEDS: MORPHINE SULFATE ER 30 MG TABLET PO SCH ×3 (05:59→17:39)
[2018-02-10] MEDS: cefTRIAXone IN SWFI 1,000 MG/10 ML SYRINGE IVP SCH (08:40)
[2018-02-10] MEDS: DORZOLAMIDE-TIMOLOL 2-0.5% DROPS 10 ML BTL BOTH EYES SCH ×2 (08:42→20:31)
--- NOTE | 2018-02-10 08:43 | P.CRDCN ---
History of Present Illness Consult date: 02/10/18 Requesting physician: Hector Hall Consult reason: chest pain Chief complaint: Abdominal pain and cramping History of present illness: This is a 77-year-old -[place] female with no prior documented history of hypertension, no diabetes, no hyperlipidemia, nonsmoker. She presents to the hospital with symptoms of abdominal pain, cramping. She states that over the past week she has hardly eat anything, because she's afraid of what it is due to her abdomen. She has not moved her bowels in one week according to her. Patient did undergo an EGD and colonoscopy in May of last year which revealed mild antral gastritis but no evidence for esophagitis or peptic ulcer disease. Colonoscopy revealed left-sided diverticulosis but no evidence of colitis or colorectal neoplasia. Patient states that since that time, she has continued to have abdominal discomfort. Patient had one episode of burning epigastric discomfort which caused her to have some belching, for this reason a cardiology consultation was requested. She states she also had one episode where she felt a pain in the left side of her chest. EKG shows normal sinus rhythm with no acute changes. Subsequent EKG shows normal sinus rhythm with no acute changes. CAT scan of the abdomen and pelvis was performed which revealed grossly abnormal location of the cecum within the mid abdomen extending into the left mid abdomen. Consideration is for wandering cecum or currently decompressed volvulus as there is no obstruction identified. 2.7 cm right adrenal mass enlarged from prior is also noted. But pressure on arrival here 140/70 with a heart rate in the 90s, 100% on room air. Blood pressure this morning 120/60 lying, 120/60 sitting, 115/70 standing. Patient did have one episode of hypotension earlier for which she complained of some mild dizziness. CBC is normal, sodium 142, potassium 3.8, BUN 11 and creatinine 0.6. Cholesterol 206, LDL 147, HDL 36. Positive UTI. At the time of my examination this morning, patient continues to complain of abdominal cramping, she denies any chest discomfort and her breathing overall is stable. Past Medical History Past Medical History: CVA/TIA, Eye Disorder, Fibromyalgia, GERD/Reflux, Hyperlipidemia, Memory Impairment, Musculoskeletal Disorder, Osteoarthritis (OA) , Rheumatoid Arthritis (RA), Sleep Apnea/CPAP/BIPAP Additional Past Medical History / Comment(s): CHRONIC BACK PAIN, GLAUCOMA, CATARACT RIGHT EYE, HX OF ANEMIA, NO C-PAP MACHINE AT THIS TIME, HX OF CVA X2 IN 2010-DENIES ANY WEAKNESS OR PARALYSIS. USES WALKER. History of Any Multi-Drug Resistant Organisms: None Reported Past Surgical History: Back Surgery, Hysterectomy, Joint Replacement, Orthopedic Surgery Additional Past Surgical History / Comment(s): HX OF AUTO [id number] WITH MULTIPLE FACE AND HEAD SURGERYS TITANIUM IMPLANTS MOUTH,RECONSTRUCTED CHIN, ORBITS,FOREHEAD.SKULL? PLATE BUT PT NOT SURE., PAM KNEE REPLACEMENT, PAM NEWSOME REPLACEMENT. (3) BACK FUSIONS AND (2) LAMINECTOMYS. LEFT CATARACT SURGERY .BREAST BX-NEG, COLONOSCOPY.09/01/16 BACK SURGERY. Past Anesthesia/Blood Transfusion Reactions: No Reported Reaction Past Psychological History: Anxiety, Depression Smoking Status: Former smoker Past Alcohol Use History: None Reported Past Drug Use History: None Reported - Past Family History Brother(s) Family Medical History: Cancer Sister(s) Family Medical History: Cancer Medications and Allergies Home Medications Medication Instructions Recorded Confirmed Type Dorzolamide HCl/Timolol Maleat 2 drop BOTH EYES BID 03/02/16 02/09/18 History [Cosopt Eye Drops] Travoprost [Travatan Z 0.004%] 1 drop BOTH EYES HS 03/02/16 02/09/18 History HYDROcodone/APAP 10-325MG [[place] 1 tab PO QID PRN 05/01/17 02/09/18 History 10-325] Morphine Sulfate [Ms Contin] 30 mg PO Q8H 05/01/17 02/09/18 History tiZANidine HCL [Zanaflex] 4 mg PO TID 05/01/17 02/09/18 History Ciclopirox [Penlac] 1 applic TOPICAL Q72H 02/09/18 02/09/18 History Pregabalin [Lyrica] 50 mg PO BID 02/09/18 02/09/18 History Allergies Allergy/AdvReac Type Severity Reaction Status Date / Time codeine Allergy Itching Verified 02/09/18 09:24 ibuprofen [From Motrin] Allergy Unknown Verified 02/09/18 09:24 ketorolac tromethamine Allergy Unknown Verified 02/09/18 09:24 [From Toradol] tramadol HCl [From Ultram] AdvReac Unknown Verified 02/09/18 09:24 tuberculin,PPD,multi-puncture AdvReac Unknown Verified 02/09/18 09:24 Physical Exam Vitals: Vital Signs Temp Pulse Pulse Pulse Pulse Pulse Resp 02/10/18 08:15 75 82 79 20 02/10/18 06:11 02/10/18 04:00 97.0 F L 86 18 02/10/18 01:07 97.4 F L 82 18 02/10/18 01:05 02/10/18 00:00 96 F L 79 20 02/09/18 20:00 96.1 F L 81 20 02/09/18 18:05 72 16 02/09/18 17:15 98.8 F 02/09/18 17:10 99 20 02/09/18 16:18 88 18 02/09/18 15:16 98.4 F 02/09/18 14:51 75 18 02/09/18 14:20 78 18 02/09/18 13:56 75 18 02/09/18 12:05 76 18 02/09/18 10:27 76 18 02/09/18 10:18 77 20 02/09/18 08:45 98.6 F 92 17 BP BP BP BP BP Pulse Ox 02/10/18 08:15 115/73 121/68 119/65 100 02/10/18 06:11 69/46 02/10/18 04:00 101/57 96 02/10/18 01:07 91/51 97 02/10/18 01:05 90/56 02/10/18 00:00 91/51 97 02/09/18 20:00 123/54 99 02/09/18 18:05 133/74 99 02/09/18 17:15 02/09/18 17:10 170/80 99 02/09/18 16:18 185/111 99 02/09/18 15:16 02/09/18 14:51 183/90 98 02/09/18 14:20 144/67 98 02/09/18 13:56 170/80 99 02/09/18 12:05 190/98 98 02/09/18 10:27 139/78 97 02/09/18 10:18 169/103 100 02/09/18 08:45 140/74 100 Intake and Output 02/09/18 02/10/18 02/10/18 22:59 06:59 14:59 Other: Voiding Method Bedside Commode Bedside Commode # Voids 1 Weight 71.214 kg 72.2 kg PHYSICAL EXAMINATION: HEENT: Head is atraumatic, normocephalic. Pupils equal, round. Neck is supple. There is no elevated jugular venous pressure. HEART EXAMINATION: Heart S1, S2 normal. No murmur or gallop heard. CHEST EXAMINATION: Lungs are clear to auscultation and precussion. No chest wall tenderness is noted on palpation or with deep breathing. ABDOMEN: Soft, generalized tenderness throughout . Bowel sounds are heard. No organomegaly noted. EXTREMITIES: 2+ peripheral pulses with no evidence of peripheral edema and no calf tenderness noted. NEUROLOGIC patient is awake, alert and oriented -3. . Results 02/09/18 10:57 02/10/18 05:19 Cardiac Enzymes 02/09/18 02/09/18 02/09/18 Range/Units 10:57 10:57 17:21 AST 34 (14-36) U/L CK-MB (CK-2) 0.7 0.8 (0.0-2.4) ng/mL Troponin I <0.012 <0.012 (0.000-0.034) ng/mL 02/09/18 02/10/18 Range/Units 22:23 05:19 AST 21 (14-36) U/L CK-MB (CK-2) 0.6 (0.0-2.4) ng/mL Troponin I <0.012 (0.000-0.034) ng/mL Lipids 02/10/18 Range/Units 05:19 Triglycerides 116 (<150) mg/dL Cholesterol 206 H (<200) mg/dL HDL Cholesterol 36 L (40-60) mg/dL CBC 02/09/18 Range/Units 10:57 WBC 5.5 (3.8-10.6) k/uL RBC 4.49 (3.80-5.40) m/uL Hgb 11.7 (11.4-16.0) gm/dL Hct 36.2 (34.0-46.0) % Plt Count 187 (150-450) k/uL Comprehensive Metabolic Panel 02/09/18 02/10/18 Range/Units 10:57 05:19 Sodium 142 142 (137-145) mmol/L Potassium 4.9 3.8 (3.5-5.1) mmol/L Chloride 106 104 (98-107) mmol/L Carbon Dioxide 25 27 (22-30) mmol/L BUN 13 11 (7-17) mg/dL Creatinine 0.59 0.60 (0.52-1.04) mg/dL Glucose 87 90 (74-99) mg/dL Calcium 8.9 9.3 (8.4-10.2) mg/dL AST 34 21 (14-36) U/L ALT 24 26 (9-52) U/L Alkaline Phosphatase 72 67 (38-126) U/L Total Protein 7.2 6.5 (6.3-8.2) g/dL Albumin 4.1 3.8 (3.5-5.0) g/dL Current Medications Generic Name Dose Route Start Last Admin Trade Name Freq PRN Reason Stop Dose Admin Hydrocodone Bitart/Acetaminophen 1 each 02/10/18 00:30 [place] 10 PO QID PRN Pain Aspirin 325 mg 02/10/18 09:00 Aspirin PO DAILY FLAVIO Ceftriaxone Sodium 1,000 mg 02/10/18 09:00 Rocephin IVP Q24HR FLAVIO Dorzolamide/Timolol 2 drops 02/10/18 09:00 Cosopt BOTH EYES BID FLAVIO Latanoprost 1 drops 02/10/18 21:00 Xalatan 0.005% BOTH EYES HS FLAVIO Lorazepam 0.5 mg 02/09/18 15:01 02/10/18 04:50 Ativan IV 0.5 mg Q6HR PRN Administration Anxiety Miscellaneous Information 1 each 02/09/18 09:05 02/09/18 10:23 Rx Info: Iv Contrast Was Given MISCELLANE 02/11/18 09:05 1 each DAILY PRN Administration Per Protocol Morphine Sulfate 2 mg 02/09/18 15:01 02/09/18 20:48 Morphine Sulfate (Inj) IV 2 mg Q4HR PRN Administration Severe Pain Morphine Sulfate 30 mg 02/10/18 00:30 02/10/18 05:59 Ms Contin PO Not Given Q8H FLAVIO Naloxone HCl 0.2 mg 02/09/18 15:01 Narcan IV Q2M PRN Opioid Reversal Nitroglycerin 0.4 mg 02/09/18 15:20 Nitrostat SUBLINGUAL Q5M PRN Chest Pain Ciclopirox [Penlac] 1 applic 02/10/18 09:00 TOPICAL Q72H FLAVIO Ondansetron HCl 4 mg 02/09/18 15:01 Zofran IVP Q8HR PRN Nausea And Vomiting Pregabalin 50 mg 02/10/18 09:00 Lyrica PO BID FLAVIO Tizanidine HCl 4 mg 02/10/18 09:00 Zanaflex PO TID FLAVIO Intake and Output 02/09/18 02/10/18 02/10/18 22:59 06:59 14:59 Other: Voiding Method Bedside Commode Bedside Commode # Voids 1 Weight 71.214 kg 72.2 kg 02/09/18 10:57 02/10/18 05:19 EKG Interpretations (text) EKG shows a normal sinus rhythm with no acute changes. Assessment and Plan Plan: Assessment and plan #1 symptoms of severe abdominal cramping and pain. EGD and colonoscopy performed in May 2017 revealed some diverticulosis. He T of the abdomen and pelvis performed this admission revealed grossly abnormal location of the cecum within the mid abdomen extending to the left midabdomen. Consideration is for wandering cecum or currently decompressed volvulus as there is no current obstruction identified. A 2.7 cm right adrenal cystic mass enlarged from prior is also noted. #2 atypical chest pain, troponins negative 3, EKG shows normal sinus rhythm with no acute changes. #3 hyperlipidemia, untreated, cholesterol 206, LDL 147, HDL 36. #4 positive UTI #5 rheumatoid arthritis #6 sleep apnea #7 chronic. #8 prior CVA #9 anxiety and depression Plan Patient's primary issues seem to be that of significant abdominal cramping and discomfort. Chest pain very atypical for acute coronary syndrome. We will obtain an echocardiogram with Doppler study. We will start the patient on a statin. Further recommendations to follow. DNP note has been reviewed, I agree with a documented findings and plan of care. Patient was seen and examined.
[2018-02-10] MEDS ORDERED: CICLOPIROX TOPICAL SCH (09:00)
[2018-02-10] MEDS ORDERED: ASPIRIN 325 MG TAB PO SCH (09:00)
[2018-02-10] MEDS: PREGABALIN 50 MG CAP PO SCH ×2 (10:01→20:31)
[2018-02-10] MEDS: ATORVASTATIN 40 MG TAB PO SCH (10:02)
[2018-02-10] MEDS: ASPIRIN 81 MG PO SCH (10:02)
[2018-02-10] MEDS: tiZANidine 4 MG TAB PO SCH ×3 (10:04→21:17)
[2018-02-10 11:48] VITALS: BMI 25.7
--- NOTE | 2018-02-10 13:49 | ECHOF ---
Referral Reason:chest pain MEASUREMENTS -------- HEIGHT: 167.6 cm WEIGHT: 72.1 kg BP: 101/57 RVIDd: 2.7 cm (< 3.3) IVSd: 1.0 cm (0.6 - 1.1) LVIDd: 3.4 cm (3.9 - 5.3) LVPWd: 1.1 cm (0.6 - 1.1) IVSs: 1.4 cm LVIDs: 2.2 cm LVPWs: 1.3 cm LA Diam: 2.3 cm (2.7 - 3.8) LAESV Index (A-L): 13.05 ml/m Ao Diam: 2.9 cm (2.0 - 3.7) AV Cusp: 2.1 cm (1.5 - 2.6) MV EXCURSION: 9.718 mm (> 18.000) MV EF SLOPE: 34 mm/s (70 - 150) EPSS: 0.6 cm MV E Paresh: 0.73 m/s MV DecT: 198 ms MV A Paresh: 0.99 m/s MV E/A Ratio: 0.74 RAP: 5.00 mmHg RVSP: 31.41 mmHg FINDINGS -------- Sinus rhythm. This was a technically adequate study. The left ventricular size is normal. There is borderline concentric left ventricular hypertrophy. Overall left ventricular systolic function is normal with, an EF between 55 - 60 %. The right ventricle is normal in size. Normal LA size by volume 22+/-6 ml/m2. The right atrium is normal in size. There is mild aortic valve sclerosis. The mitral valve leaflets are mildly thickened. Mild mitral annular calcification present. Mild m itral regurgitation is present. Mild tricuspid regurgitation present. Right ventricular systolic pressure is normal at < 35 mmHg. The pulmonic valve was not well visualized. The aortic root size is normal. Normal inferior vena cava with normal inspiratory collapse consistent with estimated right atrial pre ssure of 5 mmHg. The inferior vena cava is mildly dilated. There is no pericardial effusion. CONCLUSIONS -------- 1. Sinus rhythm. 2. This was a technically adequate study. 3. The left ventricular size is normal. 4. There is borderline concentric left ventricular hypertrophy. 5. The right ventricle is normal in size. 6. Normal LA size by volume 22+/-6 ml/m2. 7. The right atrium is normal in size. 8. There is mild aortic valve sclerosis. 9. The mitral valve leaflets are mildly thickened. 10. Mild mitral annular calcification present. 11. Mild mitral regurgitation is present. 12. Mild tricuspid regurgitation present. 13. Right ventricular systolic pressure is normal at < 35 mmHg. 14. The pulmonic valve was not well visualized. 15. The aortic root size is normal. 16. Normal inferior vena cava with normal inspiratory collapse consistent with estimated right atrial pressure of 5 mmHg. 17. The inferior vena cava is mildly dilated. 18. There is no pericardial effusion. MATERIAL WORKER: Melba Shen RDCS
--- NOTE | 2018-02-10 15:52 | PN ---
PROGRESS NOTE I am covering for Dr. Morales. DATE OF SERVICE: 02/10/2018 This 77-year-old woman, admitted with abdominal pain and constipation, also is suspected to have volvulus or wandering cecum at this time. A 2D echo with Doppler was also done. Patient had atypical chest pains. Troponins are negative. Two-D echo with Doppler showed ejection fraction about 50% to 60%. On exam, alert and oriented x3. Pulse is 79, blood pressure 115/73. No orthostatic changes. Respiration 20, temperature 98 degrees, pulse ox 100% on 2 L. HEENT: Conjunctivae normal. NECK: No jugular venous distention. CARDIOVASCULAR SYSTEM: S1, S2 muffled. RESPIRATORY SYSTEM: Breath sounds diminished at the bases. A few rhonchi. No crackles. ABDOMEN: Soft. Mild diffuse discomfort. No guarding. No rigidity. No mass palpable. LEGS: No edema. No swelling. NERVOUS SYSTEM: No focal deficit.. LABS: CBC and BMP noted. Cholesterol is 206 and LDL is 147. ASSESSMENT: 1. Abdominal pain and constipation, possibly secondary to constipation. 2. Rule out volvulus or displaced wandering cecum. 3. Right adnexal cystic mass measuring 2.7 cm. 4. Nonspecific chest pain. 5. Urinary tract infection. 6. History of cerebrovascular accident, transient ischemic attack. 7. Fibromyalgia. 8. Gastroesophageal reflux disease. 9. Hyperlipidemia. 10.History of degenerative joint disease. 11.History of rheumatoid arthritis. 12.History of chronic pain syndrome. 13.Sleep apnea. 14.Anxiety, depression. 15.Remote history of nicotine dependence. RECOMMENDATIONS AND DISCUSSION: I recommend to continue current medication, continue with the monitoring, symptomatic treatment. Otherwise at this time Lipitor, aspirin and continue with antibiotics. Surgical evaluation. Gastroenterology evaluation. Guarded prognosis. Further recommendations to follow. MMODL / IJN: [id number] /
[2018-02-10] MEDS: LATANOPROST 0.005% OPHTH DROPS 2.5 ML BTL BOTH EYES SCH (20:30)
[2018-02-11] MEDS: MORPHINE SULFATE ER 30 MG TABLET PO SCH ×3 (00:23→15:15)
[2018-02-11] MEDS: LORazepam 2 MG/ML INJ IV PRN ×3 (01:25→20:53)
[2018-02-11 06:01] LABS: Basophils % (A) 0 %; Eosinophils # (A) 0.1 k/uL (0-0.7); Eosinophils % (A) 2 %; HCT 34.1 % (34.0-46.0); Lymphocytes # (A) 1.6 k/uL (1.0-4.8); Lymphocytes % (A) 49 %; MCH 26.2 pg (25.0-35.0); MCHC 32.2 g/dL (31.0-37.0); MCV 81.5 fL (80.0-100.0); Mean Platelet Volume 7.2; Monocytes # (A) 0.2 k/uL (0-1.0); Monocytes % (A) 7 %; Neutrophils # (A) 1.3 k/uL (1.3-7.7); Neutrophils % (A) 38 %; Platelet Count 182 k/uL (150-450); RBC 4.19 m/uL (3.80-5.40); RDW 13.6 % (11.5-15.5); WBC 3.3 k/uL (3.8-10.6)
[2018-02-11 06:08] LABS: Anion Gap 11 mmol/L; Blood Urea Nitrogen 7 mg/dL (7-17); Calcium 9.2 mg/dL (8.4-10.2); Carbon Dioxide 28 mmol/L (22-30); Chloride 103 mmol/L (98-107); Glucose 100 mg/dL (74-99); Potassium 3.8 mmol/L (3.5-5.1); Sodium 142 mmol/L (137-145)
[2018-02-11] MEDS: ASPIRIN 81 MG PO SCH (07:59)
[2018-02-11] MEDS: cefTRIAXone IN SWFI 1,000 MG/10 ML SYRINGE IVP SCH (07:59)
[2018-02-11] MEDS: PREGABALIN 50 MG CAP PO SCH ×2 (07:59→20:53)
[2018-02-11] MEDS: ATORVASTATIN 40 MG TAB PO SCH (07:59)
[2018-02-11] MEDS: DORZOLAMIDE-TIMOLOL 2-0.5% DROPS 10 ML BTL BOTH EYES SCH ×2 (07:59→20:53)
[2018-02-11] MEDS: tiZANidine 4 MG TAB PO SCH ×3 (07:59→20:54)
[2018-02-11] MEDS ORDERED: MAGNESIUM CITRATE 296 ML BOTTLE PO ONE (09:57)
--- NOTE | 2018-02-11 10:00 | P.GSCN ---
History of Present Illness Consult date: 02/11/18 Reason for Consult: Abdominal pain History of present illness: 77-year-old female with a history of chronic back pain and rheumatoid arthritis. Patient takes MS Contin at home. Over the last week or 2 she has had decrease in appetite and decreased bowel function. She has a history of chronic constipation and typically takes [id number] stool softeners. Pain is bilateral lower quadrant. Better today. She did pass flatus yesterday. CAT scan was performed which showed a mobile cecum without evidence of obstruction or torsion. She had a colonoscopy by Dr. Hicks 6-7 months ago she states. No rectal bleeding or melena. She is not currently on cathartics. She is afebrile. White blood cell count 3.3 today. Patient is currently tolerating clear liquids. GI is also following. Review of Systems The patient denies any acute changes in vision or hearing, no dysphagia or odynophagia, no chest pain or shortness of breath, no dysuria or hematuria, no headache, no runny nose, no rectal bleeding or melena, no unexplained weight loss Past Medical History Past Medical History: CVA/TIA, Eye Disorder, Fibromyalgia, GERD/Reflux, Hyperlipidemia, Memory Impairment, Musculoskeletal Disorder, Osteoarthritis (OA) , Rheumatoid Arthritis (RA), Sleep Apnea/CPAP/BIPAP Additional Past Medical History / Comment(s): CHRONIC BACK PAIN, GLAUCOMA, CATARACT RIGHT EYE, HX OF ANEMIA, NO C-PAP MACHINE AT THIS TIME, HX OF CVA X2 IN 2009-DENIES ANY WEAKNESS OR PARALYSIS. USES WALKER. History of Any Multi-Drug Resistant Organisms: None Reported Past Surgical History: Back Surgery, Hysterectomy, Joint Replacement, Orthopedic Surgery Additional Past Surgical History / Comment(s): HX OF AUTO [id number] WITH MULTIPLE FACE AND HEAD SURGERYS TITANIUM IMPLANTS MOUTH,RECONSTRUCTED CHIN, ORBITS,FOREHEAD.SKULL? PLATE BUT PT NOT SURE., PAM KNEE REPLACEMENT, PAM NEWSOME REPLACEMENT. (3) BACK FUSIONS AND (2) LAMINECTOMYS. LEFT CATARACT SURGERY .BREAST BX-NEG, COLONOSCOPY.09/01/16 BACK SURGERY. Past Anesthesia/Blood Transfusion Reactions: No Reported Reaction Past Psychological History: Anxiety, Depression Smoking Status: Former smoker Past Alcohol Use History: None Reported Past Drug Use History: None Reported - Past Family History Brother(s) Family Medical History: Cancer Sister(s) Family Medical History: Cancer Medications and Allergies Home Medications Medication Instructions Recorded Confirmed Type Dorzolamide HCl/Timolol Maleat 2 drop BOTH EYES BID 03/02/16 02/09/18 History [Cosopt Eye Drops] Travoprost [Travatan Z 0.004%] 1 drop BOTH EYES HS 03/02/16 02/09/18 History HYDROcodone/APAP 10-325MG [[place] 1 tab PO QID PRN 05/01/17 02/09/18 History 10-325] Morphine Sulfate [Ms Contin] 30 mg PO Q8H 05/01/17 02/09/18 History tiZANidine HCL [Zanaflex] 4 mg PO TID 05/01/17 02/09/18 History Ciclopirox [Penlac] 1 applic TOPICAL Q72H 02/09/18 02/09/18 History Pregabalin [Lyrica] 50 mg PO BID 02/09/18 02/09/18 History Allergies Allergy/AdvReac Type Severity Reaction Status Date / Time codeine Allergy Itching Verified 02/09/18 09:24 ibuprofen [From Motrin] Allergy Unknown Verified 02/09/18 09:24 ketorolac tromethamine Allergy Unknown Verified 02/09/18 09:24 [From Toradol] tramadol HCl [From Ultram] AdvReac Unknown Verified 02/09/18 09:24 tuberculin,PPD,multi-puncture AdvReac Unknown Verified 02/09/18 09:24 Surgical - Exam Vital Signs Temp Pulse Resp BP Pulse Ox 98.6 F 92 17 140/74 100 02/09/18 08:45 02/09/18 08:45 02/09/18 08:45 02/09/18 08:45 02/09/18 08:45 Physical exam: General: Well-developed, well-nourished HEENT: Normocephalic, sclerae nonicteric Abdomen:. Mild lower abdominal tenderness bilaterally, nondistended Extremities: No edema Neuro: Alert and oriented Rectal: No masses, soft stool within the rectum, no blood Results - Labs 02/11/18 05:22 02/11/18 05:22 Abnormal Lab Results - Last 24 Hours (Table) 02/11/18 02/11/18 Range/Units 05:22 05:22 WBC 3.3 L (3.8-10.6) k/uL Hgb 11.0 L (11.4-16.0) gm/dL Glucose 100 H (74-99) mg/dL Microbiology - Last 24 Hours (Table) 02/10/18 05:19 Blood Culture - Preliminary Blood No Growth after 24 hours 02/10/18 07:50 Urine Culture - Preliminary Urine,Voided Diabetes panel 02/11/18 Range/Units 05:22 Sodium 142 (137-145) mmol/L Potassium 3.8 (3.5-5.1) mmol/L Chloride 103 (98-107) mmol/L Carbon Dioxide 28 (22-30) mmol/L BUN 7 (7-17) mg/dL Creatinine 0.60 (0.52-1.04) mg/dL Glucose 100 H (74-99) mg/dL Calcium 9.2 (8.4-10.2) mg/dL Calcium panel 02/11/18 Range/Units 05:22 Calcium 9.2 (8.4-10.2) mg/dL Pituitary panel 02/11/18 Range/Units 05:22 Sodium 142 (137-145) mmol/L Potassium 3.8 (3.5-5.1) mmol/L Chloride 103 (98-107) mmol/L Carbon Dioxide 28 (22-30) mmol/L BUN 7 (7-17) mg/dL Creatinine 0.60 (0.52-1.04) mg/dL Glucose 100 H (74-99) mg/dL Calcium 9.2 (8.4-10.2) mg/dL Adrenal panel 02/11/18 Range/Units 05:22 Sodium 142 (137-145) mmol/L Potassium 3.8 (3.5-5.1) mmol/L Chloride 103 (98-107) mmol/L Carbon Dioxide 28 (22-30) mmol/L BUN 7 (7-17) mg/dL Creatinine 0.60 (0.52-1.04) mg/dL Glucose 100 H (74-99) mg/dL Calcium 9.2 (8.4-10.2) mg/dL Assessment and Plan (1) Abdominal pain Narrative/Plan: Pain likely on the basis of constipation. CAT scan was reviewed. There is some stool burden seen. Will start daily MiraLAX and one dose of magnesium citrate. We'll follow with you. Current Visit: Yes Status: Acute Code(s): R10.9 - UNSPECIFIED ABDOMINAL PAIN SNOMED Code(s): 76453916
--- NOTE | 2018-02-11 12:17 | P.PN ---
Subjective Progress Note Date: 02/11/18 This is a 77-year-old female who was admitted to the hospital with complaints of mainly abdominal pain and some atypical chest pains. Patient's echocardiogram showed normal LV function. EKGs and cardiac enzymes are normal. Patient is being seen by general surgeons for evaluation of the abdominal pain. From cardiac standpoint, no further cardiac workup is suggested. We will be seeing her as needed basis Objective - Vital Signs Vital signs: Vital Signs Temp 98.4 F 02/11/18 11:58 Pulse 79 02/11/18 11:58 Resp 16 02/11/18 11:58 BP 130/68 02/11/18 11:58 Pulse Ox 98 02/11/18 11:58 Intake & Output 02/10/18 02/11/18 02/11/18 18:59 06:59 18:59 Intake Total 1020 320 Output Total 700 Balance 1020 320 -700 Weight 72.2 kg 73.8 kg Intake: IV 60 320 0.9. 160 Sodium Chloride 0.9% 1, 60 160 000 ml @ 75 mls/hr IV . [id number] Rx#:[id number] Oral 960 Output: Urine 700 Other: Voiding Method Bedside Commode Bedside Commode Bedside Commode # Voids 3 - Exam GENERAL EXAM: Patient is alert and oriented and doesn't appear to be in any acute distress HEENT: Normocephalic. Normal reaction of pupils, equal size, normal range of extraocular motion. No erythema or exudates in the throat. NECK: No masses, no nuchal rigidity. CHEST: No chest wall deformity. LUNGS: Equal air entry with no crackles or wheeze. HEART: S1 and S2 normal with no audible mumurs or gallops. Regular rhythm, femorals equal on both sides.. ABDOMEN: No hepatosplenomegaly, normal bowel sounds, no guarding or rigidity. SKIN: No rashes CENTRAL NERVOUS SYSTEM: No focal deficits. EXTREMITIES: No cyanosis, clubbing or edema. - Labs CBC & Chem 7: 02/11/18 05:22 02/11/18 05:22 Labs: Abnormal Lab Results - Last 24 Hours (Table) 02/11/18 02/11/18 Range/Units 05:22 05:22 WBC 3.3 L (3.8-10.6) k/uL Hgb 11.0 L (11.4-16.0) gm/dL Glucose 100 H (74-99) mg/dL Microbiology - Last 24 Hours (Table) 02/10/18 05:19 Blood Culture - Preliminary Blood No Growth after 24 hours 02/10/18 07:50 Urine Culture - Preliminary Urine,Voided Assessment and Plan (1) Atypical chest pain Current Visit: Yes Status: Acute Code(s): R07.89 - OTHER CHEST PAIN SNOMED Code(s): 852624648 (2) Abdominal pain Current Visit: Yes Status: Acute Code(s): R10.9 - UNSPECIFIED ABDOMINAL PAIN SNOMED Code(s): 70998148 (3) History of CVA (cerebrovascular accident) Current Visit: No Status: Acute Code(s): Z86.73 - PRSNL HX OF TIA (TIA), AND CEREB INFRC W/O RESID DEFICITS SNOMED Code(s): 323515711 (4) Hyperlipemia Current Visit: No Status: Acute Code(s): E78.5 - HYPERLIPIDEMIA, UNSPECIFIED SNOMED Code(s): 69580307 Plan: Her echocardiogram showed normal LV function. Her symptoms are mostly abdominal at this time. No further cardiac workup at this time
[2018-02-11] MEDS ORDERED: MORPHINE ORAL SOLN 10 MG/5 ML CUP PO PRN (12:31)
--- NOTE | 2018-02-11 18:38 | PN ---
PROGRESS NOTE DATE OF SERVICE: 02/11/2018 I am covering for Dr. Morales. This is a 77-year-old woman who was admitted with abdominal pain, possibly constipation. The patient also suspected to have wandering cecum. Dr. Reid is following the patient closely. No chest pain. No palpitations. No fever. EXAM: Alert and oriented x3. Pulse 79, blood pressure 130/60, respirations 16, temperature 97.9, pulse ox 97% on room air. HEENT: Conjunctivae normal. NECK: No jugular venous distention. CARDIOVASCULAR: S1, S2. RESPIRATORY: Breath sounds diminished in the bases. A few scattered rhonchi. No crackles. ABDOMEN: Soft, nontender. No mass palpable. Minimal discomfort. Otherwise no guarding, no rigidity. LEGS: No edema. NERVOUS SYSTEM: No focal deficits. LABS: WBC 3.3. noted. ASSESSMENT: 1. Abdominal pain, distention, possibly secondary to constipation. 2. Possibly displaced wandering cecum and resolved volvulus per CT scan. 3. Right adnexal cystic mass measuring 2.[address] scan. 4. Nonspecific chest pain. 5. Urinary tract infection. 6. History of cerebrovascular accident, transient ischemic attack. 7. Fibromyalgia. 8. Gastroesophageal reflux disease. 9. Hyperlipidemia. 10.History of degenerative joint disease. 11.History rheumatoid arthritis. 12.History of chronic pain syndrome. 13.Obstructive sleep apnea. 14.Anxiety, depression. 15.Remote history of nicotine dependence. RECOMMENDATIONS AND DISCUSSION: I recommend to continue current management and continue symptomatic treatment. Continue with antibiotics. Closely follow with Dr. Reid. Otherwise Dr. Morales will follow. MMODL / IJN: [id number] / MTDD
[2018-02-11] MEDS: HYDROcodone/APAP 10-325MG 1 EACH TAB PO PRN (19:33)
[2018-02-11] MEDS ORDERED: POLYETHYLENE GLYCOL 3350 17 GM POWD.PACK PO STA (20:47)
[2018-02-11] MEDS: LATANOPROST 0.005% OPHTH DROPS 2.5 ML BTL BOTH EYES SCH (20:53)
[2018-02-11 23:48] VITALS: RESP 18
[2018-02-12] MEDS: MORPHINE SULFATE ER 30 MG TABLET PO SCH ×2 (00:26→09:09)
[2018-02-12] MEDS: LORazepam 2 MG/ML INJ IV PRN (02:32)
[2018-02-12] MEDS: HYDROcodone/APAP 10-325MG 1 EACH TAB PO PRN (02:32)
[2018-02-12 06:50] VITALS: BP 106/66; PULSE 78; TEMP 98.3
--- NOTE | 2018-02-12 07:19 | P.PN ---
Subjective Progress Note Date: 02/12/18 Principal diagnosis: This is a 77-year-old white female essentially omitted for abdominal pain and element of chest pain. Surgery is following closely. Wondering cecum is noted on abdominal CT. The patient still continues to have bilateral periumbilical and lower quadrant abdominal pain, but she seems resting appropriately. Clear liquids are being supposedly tolerated. No significant fever or chills stated. Objective - Vital Signs Vital signs: Vital Signs Temp 98.3 F 02/12/18 06:49 Pulse 78 02/12/18 06:49 Resp 18 02/12/18 06:49 BP 106/66 02/12/18 06:49 Pulse Ox 97 02/12/18 06:49 Intake & Output 02/11/18 02/12/18 02/12/18 18:59 06:59 18:59 Intake Total 600 Output Total 700 Balance -100 Intake: Oral 600 Output: Urine 700 Other: Voiding Method Bedside Commode Toilet Bedside Commode # Voids 2 # Bowel Movements 2 - Constitutional General appearance: Present: average body habitus - EENT Eyes: Absent: abnormal pupil - Neck Neck: Absent: lymphadenopathy - Respiratory Respiratory: bilateral: CTA - Cardiovascular Rhythm: regular Heart sounds: normal: S1, S2 Abnormal Heart Sounds: Absent: S3 Gallop - Gastrointestinal General gastrointestinal: Present: normal bowel sounds, soft, tenderness. Absent: rigid - Neurologic Neurologic: Present: CNII-XII intact - Labs CBC & Chem 7: 02/11/18 05:22 02/11/18 05:22 Labs: Microbiology - Last 24 Hours (Table) 02/10/18 07:50 Urine Culture - Final Urine,Voided 02/10/18 05:19 Blood Culture - Preliminary Blood No Growth after 24 hours Assessment and Plan (1) Abdominal pain Current Visit: Yes Status: Acute Code(s): R10.9 - UNSPECIFIED ABDOMINAL PAIN SNOMED Code(s): 03922243 (2) Atypical chest pain Current Visit: Yes Status: Acute Code(s): R07.89 - OTHER CHEST PAIN SNOMED Code(s): 770246090 (3) UTI (urinary tract infection) Current Visit: Yes Status: Acute Code(s): N39.0 - URINARY TRACT INFECTION, SITE NOT SPECIFIED SNOMED Code(s): 63778214 (4) History of CVA (cerebrovascular accident) Current Visit: No Status: Acute Code(s): Z86.73 - PRSNL HX OF TIA (TIA), AND CEREB INFRC W/O RESID DEFICITS SNOMED Code(s): 016278005 Plan: Her pain seems to be stabilizing. We'll anticipate discharge when cleared by surgery. Follow-up with pelvic ultrasound for ovarian cyst. See orders otherwise.
--- NOTE | 2018-02-12 07:22 | P.DS ---
Providers Date of admission: 02/09/18 14:57 Attending physician: Memo Morales Consults: 02/09/18 15:01 Consult Physician Stat Consulting Provider: [facility] Consult Reason/Comments: Chest pain Do you want consulting provider notified?: Yes Consult Physician Stat Consulting Provider: Sandi Spann Consult Reason/Comments: Abdominal pain Do you want consulting provider notified?: Yes 02/10/18 12:52 Consult Physician Routine Consulting Provider: Brian Reid Consult Reason/Comments: abd pain Do you want consulting provider notified?: Yes Primary care physician: Memo Morales - Discharge Diagnosis(es) (1) Abdominal pain Current Visit: Yes Status: Acute (2) Atypical chest pain Current Visit: Yes Status: Acute (3) UTI (urinary tract infection) Current Visit: Yes Status: Acute (4) History of CVA (cerebrovascular accident) Current Visit: No Status: Acute Hospital Course: This discharge summary 77-year-old black female essentially admitted for chest and abdominal pain. Myocardial infarction was ruled out. Computed tomography scan of abdomen and pelvis did show significant problem with wandering cecum. We will discharge once cleared by general surgery and GI. Patient Condition at Discharge: Stable Plan - Discharge Summary New Discharge Prescriptions: New Aspirin 81 mg PO DAILY chew Atorvastatin [Lipitor] 40 mg PO DAILY #30 tab Nitroglycerin Sl Tabs [Nitrostat] 0.4 mg SUBLINGUAL Q5M PRN #50 tab PRN Reason: Chest Pain Continue Travoprost [Travatan Z 0.004%] 1 drop BOTH EYES HS Dorzolamide HCl/Timolol Maleat [Cosopt Eye Drops] 2 drop BOTH EYES BID HYDROcodone/APAP 10-325MG [[place] 10-325] 1 tab PO QID PRN PRN Reason: Pain tiZANidine HCL [Zanaflex] 4 mg PO TID Morphine Sulfate [Ms Contin] 30 mg PO Q8H Pregabalin [Lyrica] 50 mg PO BID Ciclopirox [Penlac] 1 applic TOPICAL Q72H Discharge Medication List Dorzolamide HCl/Timolol Maleat [Cosopt Eye Drops] 2 drop BOTH EYES BID 03/02/16 [History] Travoprost [Travatan Z 0.004%] 1 drop BOTH EYES HS 03/02/16 [History] HYDROcodone/APAP 10-325MG [[place] 10-325] 1 tab PO QID PRN 05/01/17 [History] Morphine Sulfate [Ms Contin] 30 mg PO Q8H 05/01/17 [History] tiZANidine HCL [Zanaflex] 4 mg PO TID 05/01/17 [History] Ciclopirox [Penlac] 1 applic TOPICAL Q72H 02/09/18 [History] Pregabalin [Lyrica] 50 mg PO BID 02/09/18 [History] Aspirin 81 mg PO DAILY chew 02/12/18 [Rx] Atorvastatin [Lipitor] 40 mg PO DAILY #30 tab 02/12/18 [Rx] Nitroglycerin Sl Tabs [Nitrostat] 0.4 mg SUBLINGUAL Q5M PRN #50 tab 02/12/18 [Rx ] Follow up Appointment(s)/Referral(s): Memo Morales MD [Primary Care Provider] - 3 Days Discharge Disposition: HOME SELF-CARE
[2018-02-12] MEDS ORDERED: LORazepam 0.5 MG TAB PO PRN (08:07)
[2018-02-12 08:14] LABS: Basophils % (A) 0 %; Eosinophils # (A) 0.1 k/uL (0-0.7); Eosinophils % (A) 2 %; HCT 33.6 % (34.0-46.0); HGB 10.7 gm/dL (11.4-16.0); Lymphocytes # (A) 1.5 k/uL (1.0-4.8); Lymphocytes % (A) 41 %; MCH 26.2 pg (25.0-35.0); MCHC 31.9 g/dL (31.0-37.0); MCV 81.9 fL (80.0-100.0); Monocytes # (A) 0.3 k/uL (0-1.0); Monocytes % (A) 8 %; Neutrophils # (A) 1.6 k/uL (1.3-7.7); Neutrophils % (A) 44 %; Platelet Count 182 k/uL (150-450); RDW 13.9 % (11.5-15.5); WBC 3.6 k/uL (3.8-10.6)
[2018-02-12 08:40] LABS: Anion Gap 10 mmol/L; Blood Urea Nitrogen 6 mg/dL (7-17); Calcium 9.2 mg/dL (8.4-10.2); Carbon Dioxide 30 mmol/L (22-30); Chloride 102 mmol/L (98-107); Glucose 94 mg/dL (74-99); Potassium 3.8 mmol/L (3.5-5.1); Sodium 142 mmol/L (137-145)
[2018-02-12] MEDS ORDERED: POLYETHYLENE GLYCOL 3350 17 GM POWD.PACK PO SCH ×2 (09:00→21:00)
[2018-02-12] MEDS: cefTRIAXone IN SWFI 1,000 MG/10 ML SYRINGE IVP SCH (09:06)
[2018-02-12] MEDS: tiZANidine 4 MG TAB PO SCH (09:07)
[2018-02-12] MEDS: ATORVASTATIN 40 MG TAB PO SCH (09:07)
[2018-02-12] MEDS: ASPIRIN 81 MG PO SCH (09:07)
[2018-02-12] MEDS: DORZOLAMIDE-TIMOLOL 2-0.5% DROPS 10 ML BTL BOTH EYES SCH (09:09)
[2018-02-12] MEDS: PREGABALIN 50 MG CAP PO SCH (09:11)
--- NOTE | 2018-02-12 10:57 | P.PN ---
Subjective Progress Note Date: 02/12/18 Principal diagnosis: Abdominal pain Patient seems to be doing better today. She did have multiple stools most of which were loose. Pain is improved. Still some lower abdominal burning discomfort. Tolerating clear liquids. Plans are underway for possible discharge. No nausea or vomiting. Objective - Vital Signs Vital signs: Vital Signs Temp 98.3 F 02/12/18 06:49 Pulse 78 02/12/18 06:49 Resp 18 02/12/18 06:49 BP 106/66 02/12/18 06:49 Pulse Ox 97 02/12/18 06:49 Intake & Output 02/11/18 02/12/18 02/12/18 18:59 06:59 18:59 Intake Total 600 Output Total 700 Balance -100 Intake: Oral 600 Output: Urine 700 Other: Voiding Method Bedside Commode Toilet Bedside Commode # Voids 2 # Bowel Movements 2 - Exam Abdomen: Soft, nondistended, minimal lower quadrant tenderness bilaterally - Labs CBC & Chem 7: 02/12/18 07:55 02/12/18 07:55 Labs: Abnormal Lab Results - Last 24 Hours (Table) 02/12/18 02/12/18 Range/Units 07:55 07:55 WBC 3.6 L (3.8-10.6) k/uL Hgb 10.7 L (11.4-16.0) gm/dL Hct 33.6 L (34.0-46.0) % BUN 6 L (7-17) mg/dL Creatinine 0.51 L (0.52-1.04) mg/dL Microbiology - Last 24 Hours (Table) 02/10/18 05:19 Blood Culture - Preliminary Blood No Growth after 48 hours 02/10/18 07:50 Urine Culture - Final Urine,Voided Assessment and Plan (1) Abdominal pain Narrative/Plan: Will advance diet. Continue stool softeners. Encouraged the patient to take daily MiraLAX post discharge. Current Visit: Yes Status: Acute Code(s): R10.9 - UNSPECIFIED ABDOMINAL PAIN SNOMED Code(s): 08909043
--- NOTE | 2018-02-12 11:12 | CDI ---
Last Revision, September 2017 Documentation Clarification Form Date: 02/12/2018 11:09:00 AM From: Felicitas MendozaClintonSERGIO, CCDS Admit Date: 02/09/2018 2:57:00 PM Patient Name: Zachary Christine Visit Number: [id number] Discharge Date: ATTENTION: The Clinical Documentation Specialists (CDI) and [facility] Coding Staff appreciate your assistance in clarifying documentation. Please respond to the clarification below the line at the bottom and electronically sign. The CDI & [facility] Coding staff will review the response and follow-up if needed. Please note: Queries are made part of the Legal Health Record. If you have any questions, please contact the author of this message via ITS. Dr. Memo Morales: Per the ED note, consults, progress notes and discharge summary, this patient is diagnosed with abdominal pain, possible resolved volvulus, wandering cecum, atypical chest pain and urinary tract infection. A relationship between diagnoses cannot be assumed unless documented as such by the attending physician. In order to capture the severity of condition; please document the relationship, if any, between these diagnoses. History/Risk Factors: Fibromyalgia, Chronic pain syndrome, GERD, OA & RA. Clinical Indicators: Presented with ongoing abdominal pain & constipation. RAD: CT Abdomen & Pelvis: Abnormal location of cecum, wandering cecum or decompressed volvulus. 2.7 cm right adnexal cystic mass, enlarged from prior studies. LAB: Positive UA, neg urine culture, pending final blood culture. Treatment: IV fluid bolus, Nitro sl, IV Ms x3 initially, IV Rocephin and IV Ativan. Received one IV dose of Apresoline. Consults to surgery & gastrointestinal. Please clarify and document your clinical opinion in the discharge summary regarding the cause of the patient's abdominal pain and/or chest pain if known: Abdominal pain due to: Chest pain due to: Other explanation of clinical findings (please specify) Unable to determine (no explanation for clinical findings) Please continue to document in your progress notes and discharge summary in order to capture severity of illness and risk of mortality. Include clinical findings that support your diagnosis. MTDD
== END 2018-02-12 13:44 | disposition home or self-care (01) | DRG 392 ==
LOC: EC 08:42 → 6SEL 14:57 → 4MS4W 02-11 14:43
PROVIDERS: ADMIT Family Medicine; ATTEND Family Medicine
DX: R10.9 Unspecified abdominal pain (principal); Q43.8 Other specified congenital malformations of intestine; N39.0 Urinary tract infection, site not specified; E27.9 Disorder of adrenal gland, unspecified; I95.9 Hypotension, unspecified; E78.5 Hyperlipidemia, unspecified; F32.9 Major depressive disorder, single episode, unspecified; F41.9 Anxiety disorder, unspecified; G47.33 Obstructive sleep apnea (adult) (pediatric); G89.4 Chronic pain syndrome; H40.9 Unspecified glaucoma; K21.9 Gastro-esophageal reflux disease without esophagitis; K57.90 Diverticulosis of intestine, part unspecified, without perforation or abscess without bleeding; K59.00 Constipation, unspecified; M06.9 Rheumatoid arthritis, unspecified; M54.9 Dorsalgia, unspecified; M19.90 Unspecified osteoarthritis, unspecified site; M79.7 Fibromyalgia; H26.9 Unspecified cataract; R07.89 Other chest pain; R63.4 Abnormal weight loss; Z68.26 Body mass index [BMI] 26.0-26.9, adult; Z79.899 Other long term (current) drug therapy; Z88.5 Allergy status to narcotic agent; Z88.6 Allergy status to analgesic agent; Z88.8 Allergy status to other drugs, medicaments and biological substances; Z96.653 Presence of artificial knee joint, bilateral; Z87.891 Personal history of nicotine dependence; Z90.710 Acquired absence of both cervix and uterus; Z86.73 Personal history of transient ischemic attack (TIA), and cerebral infarction without residual deficits; Z98.42 Cataract extraction status, left eye; Z96.1 Presence of intraocular lens; Z98.1 Arthrodesis status; Z80.9 Family history of malignant neoplasm, unspecified
CPT/HCPCS: 36415; 74177; 80048; 80053; 80061; 81001; 82150; 82550; 82553; 83690; 84484; 85025; 87040; 87086; 93005; 93306; 94760; 96361; 96374; 96375; 96376; 99285

== ENCOUNTER → 2018-05-11 | Outpatient (CLI) | payer MEDICARE, OTHER ==
[2018-05-11 13:51] LABS: Blood Urea Nitrogen 11 mg/dL (7-17)
--- NOTE | 2018-05-11 15:28 | CT ---
EXAMINATION TYPE: CT lumbar spine wo/w con DATE OF EXAM: 05/11/2018 COMPARISON: None HISTORY: 77-year-old female with lumbago, complains of low back pain with radiation bilaterally to th e extremities. TECHNIQUE: Contiguous axial scanning of the lumbar spine performed without and with IV Contrast, rajiv ent injected with 80 mL of Isovue 300. Coronal/sagittal reconstructions performed. CT DLP: 1005.6 mGycm Automated exposure control for dose reduction was used. FINDINGS: Patient is status post L2-S1 posterior fusion with laminectomies. Interbody devices are present at L3 -L4 and L4-L5. There is satisfactory interbody bony ankylosis at L5-S1. There is mature lateral osseous fusion along the posterior elements. Extensive metal hardware artifacts are present. Fixed grade 1 retrolisthesis at L2-L3. The distal aspect of the right L2 screw just violates the superior endplate cortex extending into the disc interspace The right S1 screw violates the anterior S1 cortex and abuts the right internal iliac artery. Vertebral body heights are preserved. On the right, there is mild bony bilateral neural foraminal narrowing at L3-L4 and L4-L5. IMPRESSION: 1. VERY LIMITED EXAM GIVEN EXTENSIVE METAL HARDWARE ARTIFACTS. THERE IS POSTERIOR FUSION FROM L2 THRO UGH S1 WITH INTERBODY FUSION FROM L3-S1. MATURE LATERAL OSSEOUS FUSION IS PRESENT AND THERE ARE AMY ECTOMIES AT THESE LEVELS. 2. NO VERTEBRAL COMPRESSION COLLAPSE. THERE IS FIXED GRADE 1 RETROLISTHESIS AT THE FUSED L2-L3 LEVEL. 3. THE DISTAL ASPECT OF THE RIGHT L2 SCREW EXTENDS JUST INTO THE L1-L2 DISC INTERSPACE. THE REMAINING HARDWARE APPEARS UNCOMPLICATED. NO RETROPULSION OF THE INTERBODY DEVICES. 4. MILD BONY SPONDYLOTIC NEUROFORAMINAL NARROWING ON THE RIGHT AT L3-L4 AND L4-L5.
== END | disposition home or self-care (01) ==
LOC: RADCTMAIN 13:10
PROVIDERS: ATTEND Psychiatry & Neurology Neurology
DX: M99.73 Connective tissue and disc stenosis of intervertebral foramina of lumbar region (principal); M43.16 Spondylolisthesis, lumbar region; M47.816 Spondylosis without myelopathy or radiculopathy, lumbar region; Z88.6 Allergy status to analgesic agent
CPT/HCPCS: 82565; 84520; 72133; Q9967

== ENCOUNTER 2018-06-07 19:24 | Inpatient (IN) | payer MEDICARE ==
[2018-06-07] MEDS ORDERED: MORPHINE SULFATE 4 MG/ML SYRINGE IV STA (21:42)
--- NOTE | 2018-06-07 21:42 | ED ---
General Adult HPI - General Chief complaint: Abdominal Pain Stated complaint: abdominal pain Source: patient Mode of arrival: wheelchair Limitations: no limitations - History of Present Illness Initial comments: Dictation was produced using [employer] dictation software. please excuse any grammatical, word or spelling errors. Chief Complaint: 78-year-old -[place]ammar[place] female past medical history of CVA , fibromyalgia, chronic abdominal pain presents with worsening abdominal pain. History of Present Illness: 78-year-old female with worsening abdominal pain. Patient has a history of chronic abdominal pain. She was told that she has twisted bowel. She was seen by general surgeon in the past. Patient was seen by Dr. Chavis in January 2018. Patient was seen and has history of constipation based on surgical consultation note back in January of this year. The ROS documented in this emergency department record has been reviewed and confirmed by me. Those systems with pertinent positive or negative responses have been documented in the HPI. All other systems are other negative and/or noncontributory. - Related Data Home Medications Medication Instructions Recorded Confirmed Dorzolamide HCl/Timolol Maleat 2 drop BOTH EYES BID 03/02/16 06/07/18 [Cosopt Eye Drops] Travoprost [Travatan Z 0.004%] 1 drop BOTH EYES HS 03/02/16 06/07/18 HYDROcodone/APAP 10-325MG [[place] 1 tab PO TID 05/01/17 06/07/18 10-325] Morphine Sulfate [Ms Contin] 30 mg PO Q8H PRN 05/01/17 06/07/18 tiZANidine HCL [Zanaflex] 4 mg PO TID 05/01/17 06/07/18 Ciclopirox [Penlac] 1 applic TOPICAL Q72H 02/09/18 06/07/18 [id number] 2 tab PO Q6H PRN 06/07/18 06/07/18 [Excedrin] Melatonin 1 mg PO HS PRN 06/07/18 06/07/18 Pregabalin [Lyrica] 25 mg PO BID 06/07/18 06/07/18 Previous Rx's Medication Instructions Recorded Aspirin 81 mg PO DAILY chew 02/12/18 Nitroglycerin Sl Tabs [Nitrostat] 0.4 mg SUBLINGUAL Q5M PRN #50 tab 02/12/18 Allergies Allergy/AdvReac Type Severity Reaction Status Date / Time codeine Allergy Itching Verified 06/07/18 22:06 ibuprofen [From Motrin] Allergy Unknown Verified 06/07/18 22:06 ketorolac tromethamine Allergy Unknown Verified 06/07/18 22:06 [From Toradol] tramadol HCl [From Ultram] AdvReac Unknown Verified 06/07/18 22:06 tuberculin,PPD,multi-puncture AdvReac Unknown Verified 06/07/18 22:06 Review of Systems ROS Statement: Those systems with pertinent positive or pertinent negative responses have been documented in the HPI. ROS Other: All systems not noted in ROS Statement are negative. Past Medical History Past Medical History: CVA/TIA, Eye Disorder, Fibromyalgia, GERD/Reflux, Hyperlipidemia, Memory Impairment, Musculoskeletal Disorder, Osteoarthritis (OA) , Rheumatoid Arthritis (RA), Sleep Apnea/CPAP/BIPAP Additional Past Medical History / Comment(s): CHRONIC BACK PAIN, GLAUCOMA, CATARACT RIGHT EYE, HX OF ANEMIA, NO C-PAP MACHINE AT THIS TIME, HX OF CVA X2 IN 2009-DENIES ANY WEAKNESS OR PARALYSIS. USES WALKER. History of Any Multi-Drug Resistant Organisms: None Reported Past Surgical History: Back Surgery, Hysterectomy, Joint Replacement, Orthopedic Surgery Additional Past Surgical History / Comment(s): HX OF AUTO [id number] WITH MULTIPLE FACE AND HEAD SURGERYS TITANIUM IMPLANTS MOUTH,RECONSTRUCTED CHIN, ORBITS,FOREHEAD.SKULL? PLATE BUT PT NOT SURE., PAM KNEE REPLACEMENT, PAM NEWSOME REPLACEMENT. (3) BACK FUSIONS AND (2) LAMINECTOMYS. LEFT CATARACT SURGERY .BREAST BX-NEG, COLONOSCOPY.09/01/16 BACK SURGERY. Past Anesthesia/Blood Transfusion Reactions: No Reported Reaction Past Psychological History: Anxiety, Depression Smoking Status: Former smoker Past Alcohol Use History: None Reported Past Drug Use History: None Reported - Past Family History Brother(s) Family Medical History: Cancer Sister(s) Family Medical History: Cancer General Exam - General Exam Comments Initial Comments: PHYSICAL EXAM: General Impression: Alert and oriented x3, acute distress secondary to pain HEENT: Normocephalic atraumatic, extra-ocular movements intact, pupils equal and reactive to light bilaterally, mucous membranes moist. Cardiovascular: Heart regular rate and rhythm, S1&S2 audible, no murmurs, rubs or gallops Chest: Lungs clear to auscultation bilaterally, no rhonchi, no wheeze, no rales Abdomen: Severe abdominal tenderness with palpation diffusely. Musculoskeletal: Pulses present and equal in all extremities, no peripheral edema Motor: Power 5/5 bilaterally, no focal deficits noted Neurological: CN II-XII grossly intact, no focal motor or sensory deficits noted Skin: Intact with no visualized rashes Psych: Normal affect and mood Limitations: no limitations Course Vital Signs 06/07/18 20:09 Temperature 98.6 F Pulse Rate 80 Respiratory 20 Rate Blood Pressure 135/79 O2 Sat by Pulse 98 Oximetry Medical Decision Making - Medical Decision Making ED course:-year-old female presents with worsening abdominal symptoms. Patient has a history of constipation based on chart review. As upon arrival are within acceptable limits.Laboratory evaluation obtained. CBC, coag panel, metabolic panel, urinalysis is negative. Chest x-ray obtained showing no active or acute processes. Computed tomography scan of the abdomen and pelvis was obtained showing multiple tiny hepatic cyst. There is also mild large bowel ileus however no significant evidence to suggest bowel obstruction. Patient states she's been evaluated by general surgery in the past. Patient is on also heavy duty pain medications. Ileus could be secondary to adhesion versus narcotic versus possible GI tumor. Patient to be admitted. Gen. surgery consult. - Lab Data Result diagrams: 06/07/18 21:57 06/07/18 21:57 Lab Results 06/07/18 06/07/18 06/07/18 Range/Units 21:51 21:57 21:57 WBC 7.7 (3.8-10.6) k/uL RBC 4.39 (3.80-5.40) m/uL Hgb 11.8 (11.4-16.0) gm/dL Hct 36.4 (34.0-46.0) % MCV 83.0 (80.0-100.0) fL MCH 26.8 (25.0-35.0) pg MCHC 32.3 (31.0-37.0) g/dL RDW 13.5 (11.5-15.5) % Plt Count 204 (150-450) k/uL Neutrophils % 59 % Lymphocytes % 30 % Monocytes % 6 % Eosinophils % 1 % Basophils % 0 % Neutrophils # 4.5 (1.3-7.7) k/uL Lymphocytes # 2.3 (1.0-4.8) k/uL Monocytes # 0.5 (0-1.0) k/uL Eosinophils # 0.1 (0-0.7) k/uL Basophils # 0.0 (0-0.2) k/uL PT (9.0-12.0) sec INR (<1.2) APTT (22.0-30.0) sec Sodium 137 (137-145) mmol/L Potassium 3.5 (3.5-5.1) mmol/L Chloride 98 (98-107) mmol/L Carbon Dioxide 28 (22-30) mmol/L Anion Gap 11 mmol/L BUN 11 (7-17) mg/dL Creatinine 0.62 (0.52-1.04) mg/dL Est GFR (CKD-EPI)AfAm >90 (>60 ml/min/1.73 sqM) Est GFR (CKD-EPI)NonAf 88 (>60 ml/min/1.73 sqM) Glucose 96 (74-99) mg/dL Plasma Lactic Acid Vimal 0.7 (0.7-2.0) mmol/L Calcium 9.6 (8.4-10.2) mg/dL Total Bilirubin 0.6 (0.2-1.3) mg/dL AST 25 (14-36) U/L ALT 22 (9-52) U/L Alkaline Phosphatase 79 (38-126) U/L Total Protein 8.0 (6.3-8.2) g/dL Albumin 4.4 (3.5-5.0) g/dL Amylase 123 H (30-110) U/L Lipase 186 (23-300) U/L Urine Color Urine Appearance (Clear) Urine pH (5.0-8.0) Ur Specific [place] (1.001-1.035) Urine Protein (Negative) Urine Glucose (UA) (Negative) Urine Ketones (Negative) Urine Blood (Negative) Urine Nitrite (Negative) Urine Bilirubin (Negative) Urine Urobilinogen (<2.0) mg/dL Ur Leukocyte Esterase (Negative) 06/07/18 06/07/18 Range/Units 21:57 22:56 WBC (3.8-10.6) k/uL RBC (3.80-5.40) m/uL Hgb (11.4-16.0) gm/dL Hct (34.0-46.0) % MCV (80.0-100.0) fL MCH (25.0-35.0) pg MCHC (31.0-37.0) g/dL RDW (11.5-15.5) % Plt Count (150-450) k/uL Neutrophils % % Lymphocytes % % Monocytes % % Eosinophils % % Basophils % % Neutrophils # (1.3-7.7) k/uL Lymphocytes # (1.0-4.8) k/uL Monocytes # (0-1.0) k/uL Eosinophils # (0-0.7) k/uL Basophils # (0-0.2) k/uL PT 10.7 (9.0-12.0) sec INR 1.1 (<1.2) APTT 24.3 (22.0-30.0) sec Sodium (137-145) mmol/L Potassium (3.5-5.1) mmol/L Chloride (98-107) mmol/L Carbon Dioxide (22-30) mmol/L Anion Gap mmol/L BUN (7-17) mg/dL Creatinine (0.52-1.04) mg/dL Est GFR (CKD-EPI)AfAm (>60 ml/min/1.73 sqM) Est GFR (CKD-EPI)NonAf (>60 ml/min/1.73 sqM) Glucose (74-99) mg/dL Plasma Lactic Acid Vimal (0.7-2.0) mmol/L Calcium (8.4-10.2) mg/dL Total Bilirubin (0.2-1.3) mg/dL AST (14-36) U/L ALT (9-52) U/L Alkaline Phosphatase (38-126) U/L Total Protein (6.3-8.2) g/dL Albumin (3.5-5.0) g/dL Amylase (30-110) U/L Lipase (23-300) U/L Urine Color Light Yellow Urine Appearance Clear (Clear) Urine pH 8.0 (5.0-8.0) Ur Specific [place] 1.006 (1.001-1.035) Urine Protein Negative (Negative) Urine Glucose (UA) Negative (Negative) Urine Ketones Negative (Negative) Urine Blood Negative (Negative) Urine Nitrite Negative (Negative) Urine Bilirubin Negative (Negative) Urine Urobilinogen <2.0 (<2.0) mg/dL Ur Leukocyte Esterase Negative (Negative) Disposition Clinical Impression: Ileus Disposition: ADMITTED IP TO THIS HOSP Condition: Fair Referrals: Memo Morales MD [Primary Care Provider] - 1-2 days Decision Time: 00:33
[2018-06-07 22:07] LABS: Basophils % (A) 0 %; Eosinophils # (A) 0.1 k/uL (0-0.7); Eosinophils % (A) 1 %; HCT 36.4 % (34.0-46.0); HGB 11.8 gm/dL (11.4-16.0); Lymphocytes # (A) 2.3 k/uL (1.0-4.8); Lymphocytes % (A) 30 %; MCH 26.8 pg (25.0-35.0); MCHC 32.3 g/dL (31.0-37.0); Monocytes # (A) 0.5 k/uL (0-1.0); Monocytes % (A) 6 %; Neutrophils # (A) 4.5 k/uL (1.3-7.7); Neutrophils % (A) 59 %; Platelet Count 204 k/uL (150-450); RBC 4.39 m/uL (3.80-5.40); RDW 13.5 % (11.5-15.5); WBC 7.7 k/uL (3.8-10.6)
[2018-06-07 22:19] LABS: INR 1.1 (<1.2); Partial Thromboplastin Time 24.3 sec (22.0-30.0); Prothrombin Time 10.7 sec (9.0-12.0)
[2018-06-07 22:23] LABS: ALT 22 U/L (9-52); AST 25 U/L (14-36); Albumin 4.4 g/dL (3.5-5.0); Alkaline Phosphatase 79 U/L (38-126); Amylase 123 U/L (30-110); Anion Gap 11 mmol/L; Blood Urea Nitrogen 11 mg/dL (7-17); Calcium 9.6 mg/dL (8.4-10.2); Carbon Dioxide 28 mmol/L (22-30); Chloride 98 mmol/L (98-107); Glucose 96 mg/dL (74-99); Lipase 186 U/L (23-300); Potassium 3.5 mmol/L (3.5-5.1); Sodium 137 mmol/L (137-145); Total Bilirubin 0.6 mg/dL (0.2-1.3)
[2018-06-07 23:08] LABS: Appearance,Urine Clear (Clear); Bilirubin,Urine Negative (Negative); Blood,Urine Negative (Negative); Color,Urine Light Yellow; Glucose,Urine (UA) Negative (Negative); Ketones,Urine Negative (Negative); Leukocyte Esterase,Urine Negative (Negative); Nitrite,Urine Negative (Negative); Protein,Urine Negative (Negative); Specific Gravity,Urine 1.006 (1.001-1.035); Urobilinogen,Urine <2.0 mg/dL (<2.0)
[2018-06-07] MEDS ORDERED: MORPHINE SULFATE 4 MG/ML SYRINGE IVP STA (23:38)
[2018-06-07] MEDS ORDERED: ONDANSETRON 4 MG/2 ML VIAL IVP STA (23:39)
--- NOTE | 2018-06-07 23:59 | XR ---
EXAMINATION TYPE: XR chest 2V DATE OF EXAM: 06/07/2018 COMPARISON: 08/17/2015 HISTORY: Dizziness TECHNIQUE: Frontal and lateral views of the chest are obtained. FINDINGS: Heart and mediastinum are normal. Lungs are clear. Diaphragm is normal. There are chest le ads. Bony thorax appears intact. IMPRESSION: No active cardiopulmonary disease. Normal heart. No change.
--- NOTE | 2018-06-08 00:05 | CT ---
EXAMINATION TYPE: CT abdomen pelvis w con DATE OF EXAM: 06/07/2018 COMPARISON: 02/09/2018 HISTORY: Abdominal pain, hx of bowel blockage CT DLP: 520.3 mGycm Automated exposure control for dose reduction was used. TECHNIQUE: Helical acquisition of images was performed from the lung bases through the pelvis. CONTRAST: Performed without Oral Contrast and with IV Contrast, patient injected with 100 mL of Isovue 300. FINDINGS: Lung bases are clear of consolidation. There is no pleural effusion. Heart size is normal. There are diffuse tiny cysts in the liver. Bile ducts are not dilated. Gallbladder appears normal. Sp mauro appears normal. There is no evidence of pancreatic mass. There is no sign of free air. There is no ascites. Bladder distends smoothly. There are some diverticula in the sigmoid colon. There is no s ign of diverticulitis. There are no dilated loops of bowel. There is no adrenal mass. Kidneys show satisfactory contrast opacification. There is no hydronephrosi s. Ureters are not dilated. There is metal artifact from posterior fusion surgery in the lower lumbar spine. There is no lumbar compression fracture. Exam is limited by metal artifact. There are a few g as-filled loops of large bowel in the anterior abdomen. There is 1.5 cm cyst in the medial right lobe of the liver. There is 3 cm oval-shaped cyst in the pelvis on the right sided could be ovarian cyst, unchanged. IMPRESSION: MULTIPLE TINY HEPATIC CYSTS UNCHANGED. THERE IS EVIDENCE FOR SOME MILD LARGE BOWEL ILEUS. NO EVIDENCE OF A BOWEL OBSTRUCTION. MILD SIGMOID DIVERTICULOSIS. Large bowel distention is new compared to old e xam. I do not see evidence for mechanical bowel obstruction.
[2018-06-08] MEDS ORDERED: NALOXONE 0.4 MG/ML 1 ML VIAL IV PRN (00:27)
[2018-06-08] MEDS ORDERED: LORazepam 2 MG/ML INJ IV PRN (00:48)
[2018-06-08] MEDS: MORPHINE SULFATE 4 MG/ML SYRINGE IVP PRN ×5 (04:12→20:24)
--- NOTE | 2018-06-08 08:02 | P.HPIM ---
History of Present Illness H&P Date: 06/08/18 Chief Complaint: Abdominal pain in the left quadrant. This is 72 6-2 black female who for the last year intermittently has been complaining of significant diffuse abdominal pain. For the last 5-6 days, she is had worsening abdominal pain diffusely but now localizing more to the left quadrant. Poor appetite is noted. She states the pain was unbearable and she came in for evaluation. Computed tomography scan does show large bowel ileus. However small bowel does not show significant mechanical obstruction. She is tolerating her liquids at this time. Surgical consult is pending. No history of appendectomy and laparoscopic abdominal surgery. She has history of vaginal hysterectomy in the remote past. Review of Systems Constitutional: Denies chills, Denies fever Eyes: denies blurred vision, denies pain Ears, nose, mouth and throat: Denies headache, Denies sore throat Cardiovascular: Denies chest pain, Denies shortness of breath Gastrointestinal: Reports abdominal pain, Reports early satiety, Reports loss of appetite, Denies jaundice Genitourinary: Denies dysuria, Denies hematuria Musculoskeletal: Denies myalgias Past Medical History Past Medical History: CVA/TIA, Eye Disorder, Fibromyalgia, GERD/Reflux, Hyperlipidemia, Memory Impairment, Musculoskeletal Disorder, Osteoarthritis (OA) , Rheumatoid Arthritis (RA), Sleep Apnea/CPAP/BIPAP Additional Past Medical History / Comment(s): CHRONIC BACK PAIN, GLAUCOMA, CATARACT RIGHT EYE, HX OF ANEMIA, C-PAP MACHINE, HX OF CVA X2 IN 2009-DENIES ANY WEAKNESS OR PARALYSIS. USES WALKER. History of Any Multi-Drug Resistant Organisms: None Reported Past Surgical History: Back Surgery, Hysterectomy, Joint Replacement, Orthopedic Surgery Additional Past Surgical History / Comment(s): HX OF AUTO [id number] WITH MULTIPLE FACE AND HEAD SURGERYS TITANIUM IMPLANTS MOUTH,RECONSTRUCTED CHIN, ORBITS,FOREHEAD.SKULL? PLATE BUT PT NOT SURE., PAM KNEE REPLACEMENT, PAM NEWSOME REPLACEMENT. (3) BACK FUSIONS AND (2) LAMINECTOMYS. LEFT CATARACT SURGERY .BREAST BX-NEG, COLONOSCOPY.09/01/16 BACK SURGERY. Past Anesthesia/Blood Transfusion Reactions: No Reported Reaction Past Psychological History: Anxiety, Depression Additional Psychological History / Comment(s): panic attachs Smoking Status: Former smoker Past Alcohol Use History: None Reported Past Drug Use History: None Reported - Past Family History Brother(s) Family Medical History: Cancer Sister(s) Family Medical History: Cancer Medications and Allergies Home Medications Medication Instructions Recorded Confirmed Type Dorzolamide HCl/Timolol Maleat 2 drop BOTH EYES BID 03/02/16 06/07/18 History [Cosopt Eye Drops] Travoprost [Travatan Z 0.004%] 1 drop BOTH EYES HS 03/02/16 06/07/18 History HYDROcodone/APAP 10-325MG [[place] 1 tab PO TID 05/01/17 06/07/18 History 10-325] Morphine Sulfate [Ms Contin] 30 mg PO Q8H PRN 05/01/17 06/07/18 History tiZANidine HCL [Zanaflex] 4 mg PO TID 05/01/17 06/07/18 History Ciclopirox [Penlac] 1 applic TOPICAL Q72H 02/09/18 06/07/18 History Wscnimk-Gxiv-Kmws [id number] 2 tab PO Q6H PRN 06/07/18 06/07/18 History [Excedrin] Melatonin 1 mg PO HS PRN 06/07/18 06/07/18 History Pregabalin [Lyrica] 25 mg PO BID 06/07/18 06/07/18 History ALPRAZolam [Xanax] 0.25 mg PO TID PRN 06/08/18 06/08/18 History Allergies Allergy/AdvReac Type Severity Reaction Status Date / Time codeine Allergy Itching Verified 06/07/18 22:06 ibuprofen [From Motrin] AdvReac Unknown Verified 06/08/18 01:35 ketorolac tromethamine AdvReac Unknown Verified 06/08/18 01:35 [From Toradol] tramadol HCl [From Ultram] AdvReac Unknown Verified 06/07/18 22:06 tuberculin,PPD,multi-puncture AdvReac Unknown Verified 06/07/18 22:06 Physical Exam Vitals: Vital Signs Temp Pulse Pulse Resp BP BP Pulse Ox 06/08/18 05:58 98.0 F 86 17 104/53 97 06/08/18 01:45 97.9 F 98 18 161/79 94 L 06/08/18 00:58 97.8 F 68 16 160/88 100 09/06/18 20:09 98.6 F 80 20 135/79 98 Intake and Output 06/07/18 06/08/18 06/08/18 22:59 06:59 14:59 Other: # Voids 1 Weight 71.214 kg - Constitutional General appearance: no acute distress - EENT Eyes: EOMI - Neck Neck: no lymphadenopathy - Respiratory Respiratory: bilateral: CTA - Cardiovascular Rhythm: regular Heart sounds: normal: S1, S2 Abnormal Heart Sounds: no S3 Gallop - Gastrointestinal General gastrointestinal: soft, tenderness - Integumentary Integumentary: no cellulitis - Psychiatric Psychiatric: A&O x's 3, appropriate affect Results CBC & Chem 7: 06/07/18 21:57 06/07/18 21:57 Labs: Abnormal Lab Results - Last 24 Hours (Table) 06/07/18 Range/Units 21:57 Amylase 123 H (30-110) U/L Microbiology - Last 24 Hours (Table) 06/07/18 22:56 Urine Culture - Preliminary Urine,Voided Thrombosis Risk Factor Assmnt - Choose All That Apply Any of the Below Risk Factors Present?: No Other Risk Factors: Yes Each Risk Factor Represents 3 Points: Age 75 years or older Other congenital or acquired thrombophilia - If yes, enter type in comment: No Thrombosis Risk Factor Assessment Total Risk Factor Score: 3 Thrombosis Risk Factor Assessment Level: Moderate Risk Assessment and Plan (1) Ileus Current Visit: Yes Status: Acute Code(s): K56.7 - ILEUS, UNSPECIFIED SNOMED Code(s): 007722060 (2) Abdominal pain Current Visit: No Status: Acute Code(s): R10.9 - UNSPECIFIED ABDOMINAL PAIN SNOMED Code(s): 51656793 (3) History of CVA (cerebrovascular accident) Current Visit: No Status: Acute Code(s): Z86.73 - PRSNL HX OF TIA (TIA), AND CEREB INFRC W/O RESID DEFICITS SNOMED Code(s): 660461533 (4) Hyperlipemia Current Visit: No Status: Acute Code(s): E78.5 - HYPERLIPIDEMIA, UNSPECIFIED SNOMED Code(s): 09358048 (5) Chronic pain syndrome Current Visit: No Status: Chronic Code(s): G89.4 - CHRONIC PAIN SYNDROME SNOMED Code(s): 589619310 (6) Degenerative disc disease, lumbar Current Visit: No Status: Chronic Code(s): M51.36 - OTHER INTERVERTEBRAL DISC DEGENERATION, LUMBAR REGION SNOMED Code(s): 29023713 Plan: Reconcile home medications. The patient will have surgical evaluation. Clear liquids at this time. Prognosis is guarded secondary to multiple comorbidities. Otherwise, she is a full code. See orders otherwise DR. Hall's group will covering for the weekend. Check CBC and CMP in a.m. for follow-up.
[2018-06-08] MEDS: LORazepam 2 MG/ML INJ IV PRN (09:19)
[2018-06-08] MEDS: tiZANidine 4 MG TAB PO SCH ×3 (09:19→20:27)
[2018-06-08] MEDS: DORZOLAMIDE-TIMOLOL 2-0.5% DROPS 10 ML BTL BOTH EYES SCH ×2 (09:19→20:26)
[2018-06-08] MEDS: NON-FORMULARY DRUG (Ciclopirox [Penlac] 1 APPLIC) TOPICAL SCH (09:19)
[2018-06-08] MEDS: PREGABALIN 25 MG CAP PO SCH ×2 (09:57→20:37)
--- NOTE | 2018-06-08 14:41 | P.GSCN ---
History of Present Illness Consult date: 06/08/18 Reason for Consult: Abdominal pain History of present illness: 78-year-old female known to our service. The patient is a history of chronic pain. Recently she has had increasing pain associated with some loose stools. Pain seems to be present mostly to the left of the umbilicus. Appetite is diminished. CAT scan was reviewed. Report suggest colonic ileus. There does appear to be some air and stool throughout the colon. At the region of the hepatic flexure there appears to be a focal area of narrowing. The patient did have a colonoscopy approximately 1 year ago by GI. Denies rectal bleeding or melena. Patient has had constipation in the past. White blood cell count normal. Review of Systems The patient denies any acute changes in vision or hearing, no dysphagia or odynophagia, no chest pain or shortness of breath, no dysuria or hematuria, no headache, no runny nose, no rectal bleeding or melena, no unexplained weight loss Past Medical History Past Medical History: CVA/TIA, Eye Disorder, Fibromyalgia, GERD/Reflux, Hyperlipidemia, Memory Impairment, Musculoskeletal Disorder, Osteoarthritis (OA) , Rheumatoid Arthritis (RA), Sleep Apnea/CPAP/BIPAP Additional Past Medical History / Comment(s): CHRONIC BACK PAIN, GLAUCOMA, CATARACT RIGHT EYE, HX OF ANEMIA, C-PAP MACHINE, HX OF CVA X2 IN 2009-DENIES ANY WEAKNESS OR PARALYSIS. USES WALKER. History of Any Multi-Drug Resistant Organisms: None Reported Past Surgical History: Back Surgery, Hysterectomy, Joint Replacement, Orthopedic Surgery Additional Past Surgical History / Comment(s): HX OF AUTO [id number] WITH MULTIPLE FACE AND HEAD SURGERYS TITANIUM IMPLANTS MOUTH,RECONSTRUCTED CHIN, ORBITS,FOREHEAD.SKULL? PLATE BUT PT NOT SURE., PAM KNEE REPLACEMENT, PAM NEWSOME REPLACEMENT. (3) BACK FUSIONS AND (2) LAMINECTOMYS. LEFT CATARACT SURGERY .BREAST BX-NEG, COLONOSCOPY.09/01/16 BACK SURGERY. Past Anesthesia/Blood Transfusion Reactions: No Reported Reaction Past Psychological History: Anxiety, Depression Additional Psychological History / Comment(s): panic attachs Smoking Status: Former smoker Past Alcohol Use History: None Reported Past Drug Use History: None Reported - Past Family History Brother(s) Family Medical History: Cancer Sister(s) Family Medical History: Cancer Medications and Allergies Home Medications Medication Instructions Recorded Confirmed Type Dorzolamide HCl/Timolol Maleat 2 drop BOTH EYES BID 03/02/16 06/07/18 History [Cosopt Eye Drops] Travoprost [Travatan Z 0.004%] 1 drop BOTH EYES HS 03/02/16 06/07/18 History HYDROcodone/APAP 10-325MG [[place] 1 tab PO TID 05/01/17 06/07/18 History 10-325] Morphine Sulfate [Ms Contin] 30 mg PO Q8H PRN 05/01/17 06/07/18 History tiZANidine HCL [Zanaflex] 4 mg PO TID 05/01/17 06/07/18 History Ciclopirox [Penlac] 1 applic TOPICAL Q72H 02/09/18 06/07/18 History Ntabbgc-Dwrr-Micv [id number] 2 tab PO Q6H PRN 06/07/18 06/07/18 History [Excedrin] Melatonin 1 mg PO HS PRN 06/07/18 06/07/18 History Pregabalin [Lyrica] 25 mg PO BID 06/07/18 06/07/18 History ALPRAZolam [Xanax] 0.25 mg PO TID PRN 06/08/18 06/08/18 History Allergies Allergy/AdvReac Type Severity Reaction Status Date / Time codeine Allergy Itching Verified 06/07/18 22:06 ibuprofen [From Motrin] AdvReac Unknown Verified 06/08/18 01:35 ketorolac tromethamine AdvReac Unknown Verified 06/08/18 01:35 [From Toradol] tramadol HCl [From Ultram] AdvReac Unknown Verified 06/07/18 22:06 tuberculin,PPD,multi-puncture AdvReac Unknown Verified 06/07/18 22:06 Surgical - Exam Vital Signs Temp Pulse Resp BP Pulse Ox 98.6 F 80 20 135/79 98 06/07/18 20:09 06/07/18 20:09 06/07/18 20:09 06/07/18 20:09 06/07/18 20:09 Physical exam: General: Well-developed, well-nourished HEENT: Normocephalic, sclerae nonicteric Abdomen: Mild left-sided tenderness, nondistended Extremities: No edema Neuro: Alert and oriented Results - Labs 06/07/18 21:57 06/07/18 21:57 Abnormal Lab Results - Last 24 Hours (Table) 06/07/18 Range/Units 21:57 Amylase 123 H (30-110) U/L Microbiology - Last 24 Hours (Table) 06/07/18 22:56 Urine Culture - Preliminary Urine,Voided Diabetes panel 06/07/18 Range/Units 21:57 Sodium 137 (137-145) mmol/L Potassium 3.5 (3.5-5.1) mmol/L Chloride 98 (98-107) mmol/L Carbon Dioxide 28 (22-30) mmol/L BUN 11 (7-17) mg/dL Creatinine 0.62 (0.52-1.04) mg/dL Glucose 96 (74-99) mg/dL Calcium 9.6 (8.4-10.2) mg/dL AST 25 (14-36) U/L ALT 22 (9-52) U/L Alkaline Phosphatase 79 (38-126) U/L Total Protein 8.0 (6.3-8.2) g/dL Albumin 4.4 (3.5-5.0) g/dL Calcium panel 06/07/18 Range/Units 21:57 Calcium 9.6 (8.4-10.2) mg/dL Albumin 4.4 (3.5-5.0) g/dL Pituitary panel 06/07/18 Range/Units 21:57 Sodium 137 (137-145) mmol/L Potassium 3.5 (3.5-5.1) mmol/L Chloride 98 (98-107) mmol/L Carbon Dioxide 28 (22-30) mmol/L BUN 11 (7-17) mg/dL Creatinine 0.62 (0.52-1.04) mg/dL Glucose 96 (74-99) mg/dL Calcium 9.6 (8.4-10.2) mg/dL Adrenal panel 06/07/18 Range/Units 21:57 Sodium 137 (137-145) mmol/L Potassium 3.5 (3.5-5.1) mmol/L Chloride 98 (98-107) mmol/L Carbon Dioxide 28 (22-30) mmol/L BUN 11 (7-17) mg/dL Creatinine 0.62 (0.52-1.04) mg/dL Glucose 96 (74-99) mg/dL Calcium 9.6 (8.4-10.2) mg/dL Total Bilirubin 0.6 (0.2-1.3) mg/dL AST 25 (14-36) U/L ALT 22 (9-52) U/L Alkaline Phosphatase 79 (38-126) U/L Total Protein 8.0 (6.3-8.2) g/dL Albumin 4.4 (3.5-5.0) g/dL Assessment and Plan (1) Abdominal pain Narrative/Plan: Would consider barium enema given the patient's CAT scan findings. Focal area of narrowing could just be on the basis of colonic peristalsis however. Will discuss with the patient further but we'll tentatively planned scheduling for barium enema Current Visit: No Status: Acute Code(s): R10.9 - UNSPECIFIED ABDOMINAL PAIN SNOMED Code(s): 65644488
[2018-06-08] MEDS: LATANOPROST 0.005% OPHTH DROPS 2.5 ML BTL BOTH EYES SCH (20:26)
[2018-06-09] MEDS: MORPHINE SULFATE 4 MG/ML SYRINGE IVP PRN ×4 (01:53→14:47)
[2018-06-09] MEDS: LORazepam 2 MG/ML INJ IV PRN ×4 (03:32→22:45)
[2018-06-09] MEDS: DORZOLAMIDE-TIMOLOL 2-0.5% DROPS 10 ML BTL BOTH EYES SCH ×2 (07:39→20:03)
[2018-06-09] MEDS: tiZANidine 4 MG TAB PO SCH ×3 (07:40→20:03)
[2018-06-09] MEDS: PREGABALIN 25 MG CAP PO SCH ×2 (07:42→20:03)
--- NOTE | 2018-06-09 10:07 | P.PN ---
Progress Note - Text Progress Note Date: 06/09/18 The patient is resting comfortably bed. She is tolerating liquids. On exam her vital signs are stable. Her abdomen soft. Resolved ileus. Patient will have her diet advanced.
[2018-06-09] MEDS ORDERED: MAGNESIUM CITRATE 296 ML BOTTLE PO ONE (12:00)
[2018-06-09] MEDS: SODIUM CHLORIDE 0.9% 1,000 ML IV SCH (14:29)
[2018-06-09] MEDS ORDERED: ceFAZolin 2,000 MG in DEXTROSE/WATER 1 50ML.BAG IVPB SCH (16:00)
[2018-06-09] MEDS: ceFAZolin IN SWFI 2 GM/20 ML SYRINGE IVP SCH ×2 (16:54→22:45)
[2018-06-09] MEDS: LATANOPROST 0.005% OPHTH DROPS 2.5 ML BTL BOTH EYES SCH (20:03)
--- NOTE | 2018-06-09 21:13 | PN ---
PROGRESS NOTE DATE OF SERVICE: 06/09/2018 I am covering for Dr. Morales. This 78-year-old woman who was admitted with ileus also complaining of abdominal pain. Barium study is being planned on Monday. Surgery is following the patient closely. No chest pain. No palpitations. PHYSICAL EXAM: Alert and oriented x3. Pulse 78, blood pressure 118/69, respirations 17, temperature 97.9, pulse ox 97% on room air. HEENT: Conjunctivae normal. Oral mucosa moist. NECK: No jugular venous distention. No carotid bruits. No lymph node enlargement. CARDIOVASCULAR: S1, S2 muffled. RESPIRATORY: Breath sounds diminished in the bases. A few rhonchi. No crackles. ABDOMEN: Soft, mild diffuse tenderness in the left lower quadrant. NERVOUS SYSTEM: Nonfocal. LABS: CBC, CMP within normal limits. ASSESSMENT: 1. Acute lower abdominal pain for evaluation. 2. Ileus. 3. Acute cerebrovascular accident. 4. History of cerebrovascular accident. 5. Hyperlipidemia. 6. Chronic pain syndrome. 7. History of degenerative joint disease. RECOMMENDATION AND DISCUSSION: Recommend to continue current medical management and symptomatic treatment. Otherwise, will continue with the diet and as recommended by Surgery. Otherwise, continue to monitor. Guarded prognosis. Further recommendations to follow. MMODL / IJN: [id number] / MTDD
[2018-06-10] MEDS: SODIUM CHLORIDE 0.9% 1,000 ML IV SCH ×2 (03:05→17:04)
[2018-06-10] MEDS: MORPHINE SULFATE 4 MG/ML SYRINGE IVP PRN ×3 (03:10→12:02)
[2018-06-10] MEDS: tiZANidine 4 MG TAB PO SCH ×3 (07:40→21:07)
[2018-06-10] MEDS: DORZOLAMIDE-TIMOLOL 2-0.5% DROPS 10 ML BTL BOTH EYES SCH ×2 (07:40→21:06)
[2018-06-10] MEDS: ceFAZolin IN SWFI 2 GM/20 ML SYRINGE IVP SCH ×3 (07:40→23:15)
[2018-06-10] MEDS: PREGABALIN 25 MG CAP PO SCH ×2 (07:43→21:07)
[2018-06-10] MEDS: LORazepam 2 MG/ML INJ IV PRN ×2 (09:44→22:39)
[2018-06-10] MEDS ORDERED: ASPIRIN-ACET-CAFF 250-250-65MG 1 EACH TAB PO PRN (11:09)
[2018-06-10] MEDS ORDERED: PEG 3350-NA SULF,BICARB,CL/KCL 4,000 ML BOTTLE PO ONE (12:00)
--- NOTE | 2018-06-10 12:35 | P.PN ---
Progress Note - Text Progress Note Date: 06/10/18 The patient has complaints of diarrhea from her prep. She is scheduled for a barium enema tomorrow. On exam her vital signs are stable. Her abdomen soft. History of chronic abdominal pain. Patient will undergo be in the morning.
[2018-06-10] MEDS: ALPRAZolam 0.25 MG TAB PO PRN (12:49)
[2018-06-10 15:14] LABS: Basophils % (A) 0 %; Eosinophils # (A) 0.1 k/uL (0-0.7); Eosinophils % (A) 2 %; HCT 34.5 % (34.0-46.0); HGB 10.6 gm/dL (11.4-16.0); Lymphocytes # (A) 1.1 k/uL (1.0-4.8); Lymphocytes % (A) 34 %; MCH 25.9 pg (25.0-35.0); MCHC 30.8 g/dL (31.0-37.0); MCV 84.3 fL (80.0-100.0); Mean Platelet Volume 7.2; Monocytes # (A) 0.3 k/uL (0-1.0); Monocytes % (A) 8 %; Neutrophils # (A) 1.7 k/uL (1.3-7.7); Neutrophils % (A) 52 %; Platelet Count 191 k/uL (150-450); RBC 4.09 m/uL (3.80-5.40); RDW 13.6 % (11.5-15.5); WBC 3.2 k/uL (3.8-10.6)
[2018-06-10 15:25] LABS: ALT 22 U/L (9-52); AST 22 U/L (14-36); Albumin 3.8 g/dL (3.5-5.0); Alkaline Phosphatase 60 U/L (38-126); Anion Gap 8 mmol/L; Blood Urea Nitrogen 5 mg/dL (7-17); Calcium 9.3 mg/dL (8.4-10.2); Carbon Dioxide 29 mmol/L (22-30); Chloride 102 mmol/L (98-107); Glucose 100 mg/dL (74-99); Potassium 4.5 mmol/L (3.5-5.1); Sodium 139 mmol/L (137-145); Total Bilirubin 0.2 mg/dL (0.2-1.3)
[2018-06-10] MEDS: HYDROcodone/APAP 10-325MG 1 EACH TAB PO SCH ×2 (16:03→21:07)
--- NOTE | 2018-06-10 16:37 | PN ---
PROGRESS NOTE DATE OF SERVICE: 06/10/2018. I am covering for Dr. Morales. HISTORY: This 78-year-old woman was admitted with ileus, also complaining of severe abdominal pain. Patient has some anxiety also. No chest pain, no palpitations. Barium enema is being planned for tomorrow. Surgery is following the patient closely. PHYSICAL EXAM: Alert and oriented x3. Pulse 97, blood pressure 115/56, respirations 16, temperature 98.2, pulse ox 94% on room air. HEENT: Conjunctivae normal. Oral mucosa moist. NECK: No jugular venous distention. No lymph node enlargement. CARDIOVASCULAR: S1 and S2 muffled. LUNGS: Breath sounds diminished at the bases. No rhonchi, no crackles. ABDOMEN: Soft, mild diffuse tenderness present. No mass palpable. ASSESSMENT: 1. Acute lower abdominal pain, for evaluation of possible ileus. 2. History of cerebrovascular accident. 3. Hyperlipidemia. 4. History of chronic pain syndrome. 5. History of degenerative joint disease. RECOMMENDATIONS: Continue current management. Continue symptomatic treatment. Barium swallow. I would recommend repeat labs. Amylase and lipase normal on admission. We will continue to monitor. Further recommendations to follow. Dr. Morales will follow tomorrow. MMODL / IJN: [id number] /
[2018-06-10] MEDS: LATANOPROST 0.005% OPHTH DROPS 2.5 ML BTL BOTH EYES SCH (21:07)
[2018-06-11] MEDS: SODIUM CHLORIDE 0.9% 1,000 ML IV SCH ×2 (04:40→14:36)
[2018-06-11] MEDS: ceFAZolin IN SWFI 2 GM/20 ML SYRINGE IVP SCH ×3 (07:59→23:46)
[2018-06-11] MEDS: NON-FORMULARY DRUG (Ciclopirox [Penlac] 1 APPLIC) TOPICAL SCH (07:59)
[2018-06-11] MEDS: MORPHINE SULFATE 4 MG/ML SYRINGE IVP PRN ×4 (08:00→21:18)
[2018-06-11] MEDS: DORZOLAMIDE-TIMOLOL 2-0.5% DROPS 10 ML BTL BOTH EYES SCH ×2 (08:00→19:50)
[2018-06-11] MEDS: PREGABALIN 25 MG CAP PO SCH ×2 (08:11→19:50)
[2018-06-11] MEDS: tiZANidine 4 MG TAB PO SCH ×3 (08:11→19:50)
--- NOTE | 2018-06-11 08:13 | P.PN ---
Subjective Progress Note Date: 06/11/18 Principal diagnosis: Large bowel ileus. Abdominal pain This is a continue progress on a 78-year-old black female essentially admitted for large bowel ileus. Barium and is pending for today. She's has been supposedly tolerate diet and having bowel movement, no hemoptysis or melena. No hematochezia noted. CBC is noted. However, abdominal pain is still stated. She does struggle with chronic pain elements. However, she states this type pain is been intermittent for the last year. Objective - Vital Signs Vital signs: Vital Signs Temp 98.0 F 06/11/18 07:20 Pulse 83 06/11/18 07:20 Resp 18 06/11/18 07:20 BP 142/71 06/11/18 07:20 Pulse Ox 100 06/11/18 07:20 Intake & Output 06/10/18 06/11/18 06/11/18 18:59 06:59 18:59 Other: Voiding Method Toilet # Voids 1 2 # Bowel Movements 1 1 - Constitutional General appearance: Present: average body habitus - EENT Eyes: Absent: abnormal pupil - Respiratory Respiratory: bilateral: CTA - Cardiovascular Rhythm: regular Heart sounds: normal: S1, S2 Abnormal Heart Sounds: Absent: S3 Gallop - Gastrointestinal General gastrointestinal: Present: soft, tenderness - Neurologic Neurologic: Present: CNII-XII intact - Labs CBC & Chem 7: 06/10/18 14:44 06/10/18 14:44 Labs: Abnormal Lab Results - Last 24 Hours (Table) 06/10/18 06/10/18 Range/Units 14:44 14:44 WBC 3.2 L (3.8-10.6) k/uL Hgb 10.6 L (11.4-16.0) gm/dL MCHC 30.8 L (31.0-37.0) g/dL BUN 5 L (7-17) mg/dL Glucose 100 H (74-99) mg/dL Assessment and Plan (1) Ileus Current Visit: Yes Status: Acute Code(s): K56.7 - ILEUS, UNSPECIFIED SNOMED Code(s): 710583004 (2) Abdominal pain Current Visit: No Status: Acute Code(s): R10.9 - UNSPECIFIED ABDOMINAL PAIN SNOMED Code(s): 86694543 (3) History of CVA (cerebrovascular accident) Current Visit: No Status: Acute Code(s): Z86.73 - PRSNL HX OF TIA (TIA), AND CEREB INFRC W/O RESID DEFICITS SNOMED Code(s): 317838533 (4) Hyperlipemia Current Visit: No Status: Acute Code(s): E78.5 - HYPERLIPIDEMIA, UNSPECIFIED SNOMED Code(s): 35712213 (5) Chronic pain syndrome Current Visit: No Status: Chronic Code(s): G89.4 - CHRONIC PAIN SYNDROME SNOMED Code(s): 323838730 (6) Degenerative disc disease, lumbar Current Visit: No Status: Chronic Code(s): M51.36 - OTHER INTERVERTEBRAL DISC DEGENERATION, LUMBAR REGION SNOMED Code(s): 85696055 Plan: Await barium enema results. We'll continue to follow with surgery. She is concerned about having some type of surgical procedure to "removed" this problem. At this time, with her white count being normal and tolerating diet, I told her that we will have to defer to surgery and that evidence is in her favor that she does not necessarily need to proceed with any type of other procedure yet. Time with Patient: Less than 30
--- NOTE | 2018-06-11 09:20 | FL ---
EXAMINATION TYPE: FL barium enema DATE OF EXAM: 06/11/2018 COMPARISON: NONE HISTORY: Pain TECHNIQUE: A single contrast barium enema study is performed. FINDINGS: Management Trainer view of the abdomen shows overall non-obstructive bowel gas pattern. The patient could not proceed with the procedure. A small amount of contrast was instilled into the r ectum and into the sigmoid colon. The patient could not tolerate the contrast administration and requ ested that no additional barium be instilled and asked the procedure be discontinued. The procedure w as therefore discontinued. Exam is essentially nondiagnostic. A 48 seconds of fluoroscopy and 9 images are submitted. IMPRESSION: 1. The patient could not tolerate the procedure and asked for the exam to be discontinued. Changes of diverticulosis of the sigmoid colon were seen on the limited images obtained. The patient could not tolerate the contrast administration and therefore the procedure was deferred. Correlate with direct visualization.
[2018-06-11] MEDS: HYDROcodone/APAP 10-325MG 1 EACH TAB PO SCH ×3 (10:36→19:50)
[2018-06-11 11:23] LABS: Basophils % (A) 0 %; Eosinophils # (A) 0.1 k/uL (0-0.7); Eosinophils % (A) 1 %; HGB 11.3 gm/dL (11.4-16.0); Lymphocytes # (A) 1.1 k/uL (1.0-4.8); Lymphocytes % (A) 27 %; MCH 26.6 pg (25.0-35.0); MCHC 31.4 g/dL (31.0-37.0); MCV 84.6 fL (80.0-100.0); Monocytes # (A) 0.2 k/uL (0-1.0); Monocytes % (A) 6 %; Neutrophils # (A) 2.5 k/uL (1.3-7.7); Neutrophils % (A) 62 %; Platelet Count 215 k/uL (150-450); RBC 4.26 m/uL (3.80-5.40); RDW 13.7 % (11.5-15.5)
[2018-06-11 11:29] LABS: Anion Gap 7 mmol/L; Blood Urea Nitrogen 4 mg/dL (7-17); Calcium 9.2 mg/dL (8.4-10.2); Carbon Dioxide 30 mmol/L (22-30); Chloride 103 mmol/L (98-107); Glucose 99 mg/dL (74-99); Potassium 4.5 mmol/L (3.5-5.1); Sodium 140 mmol/L (137-145)
[2018-06-11] MEDS: ALPRAZolam 0.25 MG TAB PO PRN ×3 (11:41→21:19)
--- NOTE | 2018-06-11 12:03 | P.PN ---
<Belgica Sawantchristine Staples - Last Filed: 06/11/18 12:03> Subjective Progress Note Date: 06/11/18 78-year-old female just returned from having a barium enema which could not be completed. Patient states she was having pressure feeling. Could not tolerate the contrast administration and had asked that The procedure be discontinued. Reviewing the barium enema report changes of diverticulosis of the sigmoid colon were seen on limited images. Small amount contrast instilled into the rectum and into the sigmoid. Procedure was non-diagnostic Currently teary-eyed resting in bed continues to report has left lower quadrant abdominal pain reports no nausea no vomiting no bowel movement soft nondistended no stool no nausea no vomiting Objective - Vital Signs Vital signs: Vital Signs Temp 98.0 F 06/11/18 07:20 Pulse 83 06/11/18 07:20 Resp 18 06/11/18 07:20 BP 142/71 06/11/18 07:20 Pulse Ox 100 06/11/18 07:20 Intake & Output 06/10/18 06/11/18 06/11/18 18:59 06:59 18:59 Other: Voiding Method Toilet Toilet # Voids 1 2 # Bowel Movements 1 1 - Exam Physical exam 78-year-old female resting in bed appears in no acute distress Lungs clear adequate air movement sats 100% on room air Heart S1-S2 audible regular Abdomen soft points to the left lower quadrant states that's where the discomfort is. Reportedly not experiencing any nausea vomiting. No stool few hypoactive bowel tones soft not distended mild tenderness left lower quadrant no facial grimacing with palpitation to the abdominal wall Extremities no edema - Labs CBC & Chem 7: 06/11/18 10:51 06/11/18 10:51 Labs: Abnormal Lab Results - Last 24 Hours (Table) 06/10/18 06/10/18 06/11/18 Range/Units 14:44 14:44 10:51 WBC 3.2 L (3.8-10.6) k/uL Hgb 10.6 L 11.3 L (11.4-16.0) gm/dL MCHC 30.8 L (31.0-37.0) g/dL BUN 5 L (7-17) mg/dL Glucose 100 H (74-99) mg/dL 06/11/18 Range/Units 10:51 WBC (3.8-10.6) k/uL Hgb (11.4-16.0) gm/dL MCHC (31.0-37.0) g/dL BUN 4 L (7-17) mg/dL Glucose (74-99) mg/dL Assessment and Plan Assessment: Impression Present on admission diffuse abdominal pain possible ileus History of chronic pain CAT scan abdomen pelvis on admission reviewed report indicate suspect colonic ileus with no evidence of a bowel obstruction mild sigmoid diverticulosis History of a prior CVA Ileus Plan IV fluid at 75 an hour We'll follow with you with further surgical recommendations Home meds as appropriate IV kefzol 2 g every 8 hours per the attending Increase activity as tolerated Continue nothing by mouth diet DVT and GI prophylaxis The above impression and plan of care have been discussed and directed by signing physician. Kenia Sawant nurse practitioner acting as scribe for signing physician. <Brian Reid - Last Filed: 06/11/18 17:24> Objective - Vital Signs Vital signs: Vital Signs Temp 98.7 F 06/11/18 14:25 Pulse 74 06/11/18 14:25 Resp 16 06/11/18 14:25 BP 125/63 06/11/18 14:25 Pulse Ox 99 06/11/18 14:25 Intake & Output 06/10/18 06/11/18 06/11/18 18:59 06:59 18:59 Weight 71.214 kg Other: Voiding Method Toilet Toilet # Voids 1 2 2 # Bowel Movements 1 1 1 - Labs CBC & Chem 7: 06/11/18 10:51 06/11/18 10:51 Labs: Abnormal Lab Results - Last 24 Hours (Table) 06/11/18 06/11/18 Range/Units 10:51 10:51 Hgb 11.3 L (11.4-16.0) gm/dL BUN 4 L (7-17) mg/dL Microbiology - Last 24 Hours (Table) 06/09/18 13:56 Anaerobic Culture - Preliminary Hip - Right 06/09/18 13:56 Gram Stain - Final Hip - Right Wound Culture - Final Assessment and Plan Assessment: As above. Patient apparently went down for barium enema today. Her x-rays dictation the patient asked for the procedure to be stopped. The patient states however that she did not request the procedure and. She would like to have another chance at having the procedure performed. We'll reschedule for tomorrow morning. Continue clear liquids for now. (1) Abdominal pain Current Visit: No Status: Acute Code(s): R10.9 - UNSPECIFIED ABDOMINAL PAIN SNOMED Code(s): 83418361
[2018-06-11 14:26] VITALS: BMI 25.3
--- NOTE | 2018-06-11 15:17 | PN ---
PROGRESS NOTE Please note this patient has history of old CVA. MMODL / IJN: [id number] /
[2018-06-11] MEDS: LATANOPROST 0.005% OPHTH DROPS 2.5 ML BTL BOTH EYES SCH (19:50)
[2018-06-11] MEDS: MELATONIN 1 MG TAB PO PRN ×2 (21:19)
[2018-06-11] MEDS: LORazepam 2 MG/ML INJ IV PRN (23:50)
--- NOTE | 2018-06-12 07:29 | P.PN ---
Subjective Principal diagnosis: Large bowel ileus. Abdominal pain This is a 78-year-old black female essentially admitted for colonic ileus and left quadrant abdominal pain which is been intermittent for the last year. She was unable to complete the barium enema, because of perceived pain. She is agreeable to do the test again this morning after evaluation from surgery. Otherwise, she feels much better this morning clinically. Appetite seems to be coming back but she is concerned about her left quadrant pain. Fever or chills stated. CBC and CMP are nominal. Objective - Vital Signs Vital signs: Vital Signs Temp 97.5 F L 06/11/18 23:00 Pulse 61 06/11/18 23:00 Resp 16 06/11/18 23:00 BP 138/73 06/11/18 23:00 Pulse Ox 95 06/11/18 23:00 Intake & Output 06/11/18 06/12/18 06/12/18 18:59 06:59 18:59 Weight 71.214 kg Other: Voiding Method Toilet Toilet # Voids 2 3 # Bowel Movements 1 - Constitutional General appearance: Present: average body habitus - EENT Eyes: Absent: abnormal pupil - Respiratory Respiratory: bilateral: CTA - Cardiovascular Rhythm: regular Heart sounds: normal: S1, S2 Abnormal Heart Sounds: Absent: S3 Gallop - Gastrointestinal General gastrointestinal: Present: soft. Absent: tenderness - Neurologic Neurologic: Present: CNII-XII intact - Psychiatric Psychiatric: Present: A&O x's 3 - Labs CBC & Chem 7: 06/11/18 10:51 06/11/18 10:51 Labs: Abnormal Lab Results - Last 24 Hours (Table) 06/11/18 06/11/18 Range/Units 10:51 10:51 Hgb 11.3 L (11.4-16.0) gm/dL BUN 4 L (7-17) mg/dL Microbiology - Last 24 Hours (Table) 06/09/18 13:56 Anaerobic Culture - Preliminary Hip - Right 06/09/18 13:56 Gram Stain - Final Hip - Right Wound Culture - Final Assessment and Plan (1) Ileus Current Visit: Yes Status: Acute Code(s): K56.7 - ILEUS, UNSPECIFIED SNOMED Code(s): 889111635 (2) Abdominal pain Current Visit: No Status: Acute Code(s): R10.9 - UNSPECIFIED ABDOMINAL PAIN SNOMED Code(s): 43223287 (3) History of CVA (cerebrovascular accident) Current Visit: No Status: Acute Code(s): Z86.73 - PRSNL HX OF TIA (TIA), AND CEREB INFRC W/O RESID DEFICITS SNOMED Code(s): 082534467 (4) Hyperlipemia Current Visit: No Status: Acute Code(s): E78.5 - HYPERLIPIDEMIA, UNSPECIFIED SNOMED Code(s): 65127233 (5) Chronic pain syndrome Current Visit: No Status: Chronic Code(s): G89.4 - CHRONIC PAIN SYNDROME SNOMED Code(s): 937520803 (6) Degenerative disc disease, lumbar Current Visit: No Status: Chronic Code(s): M51.36 - OTHER INTERVERTEBRAL DISC DEGENERATION, LUMBAR REGION SNOMED Code(s): 63042242 Plan: Patient will repeat barium enema today and we will then proceed with appropriate follow-up. We'll continue to follow with surgery. The patient seems to be clinically improved today.
[2018-06-12] MEDS: ceFAZolin IN SWFI 2 GM/20 ML SYRINGE IVP SCH ×2 (07:56→16:13)
[2018-06-12] MEDS: HYDROcodone/APAP 10-325MG 1 EACH TAB PO SCH ×3 (07:56→21:10)
[2018-06-12] MEDS: PREGABALIN 25 MG CAP PO SCH ×2 (07:56→21:11)
[2018-06-12] MEDS: DORZOLAMIDE-TIMOLOL 2-0.5% DROPS 10 ML BTL BOTH EYES SCH ×2 (07:57→21:11)
[2018-06-12] MEDS: tiZANidine 4 MG TAB PO SCH ×3 (07:57→21:10)
[2018-06-12] MEDS: SODIUM CHLORIDE 0.9% 1,000 ML IV SCH ×2 (07:58→22:21)
--- NOTE | 2018-06-12 11:56 | FL ---
EXAMINATION TYPE: FL barium enema DATE OF EXAM: 06/12/2018 COMPARISON: CT abdomen and pelvis from 5 days ago and older CT 08/21/2018. Barium enema study fro m yesterday. HISTORY: Patient admitted for abdominal pain 5 days earlier with history of bowel blockage. Abnormal CT with narrowing near hepatic flexure. TECHNIQUE: A double contrast barium enema study is attempted. A total of 5.36 minutes of fluoroscopi c time was utilized during procedure. Approximately 15 spot images are acquired. FINDINGS: Hoister view of the abdomen shows retained barium in the distal colon from splenic flexure t o rectum. Scattered colonic diverticula are present. There is an enema study attempted. There is difficulty passing contrast likely due to retained air fr om attempted procedure one day earlier. In addition there is marked redundancy of the colon particula rly sigmoid colon causing overlap making evaluation suboptimal. When reaching the splenic flexure pat ient began to lose contrast from rectum also making evaluation suboptimal. After passing hepatic flex ure into the distal right colon, with refilling enema bag multiple times, contrast could not be passe d to cecum and retrograde filling had to be terminated. There is suboptimal evaluation for polyps due to marked redundancy causing significant retained bariu m. Diverticulosis most prominent in the sigmoid colon is present. There is successful filling past th e area of concern at level of hepatic flexure on recent CT axial image 33 and coronal image 27, this favors focal spasm as no definitive suspicious lesion is seen on enema study at this level and there is no definitive lesion seen on older CT from February 09, 2018. Post evacuation images show filling of lo w-lying cecum and appendix without constricting mass. Postsurgical change in the mid to lower lumbar spine is redemonstrated with posterior interpedicular rods and screws noted. IMPRESSION: Suboptimal study but there is successful filling felt present to the area of CT concern in in the proximal colon near the level of hepatic flexure without constricting mass or neoplasm iden tified.
[2018-06-12] MEDS: MORPHINE SULFATE 4 MG/ML SYRINGE IVP PRN (13:09)
--- NOTE | 2018-06-12 13:16 | P.PN ---
<Kenia Sawant - Last Filed: 06/12/18 13:12> Subjective Progress Note Date: 06/12/18 78 -year-old female just returned from having a very minimal done. Tolerated the procedure. Patient continues to report having left lower quadrant pain. Reviewed the preliminary barium enema report indicate suboptimal study that there was successful filling felt present in the area of the CT concern is in the proximal colon near the level of hepatic flexure without constricting mass or neoplasm Objective - Vital Signs Vital signs: Vital Signs Temp 97.9 F 06/12/18 07:15 Pulse 85 06/12/18 07:15 Resp 18 06/12/18 07:15 BP 129/77 06/12/18 07:15 Pulse Ox 99 06/12/18 07:15 Intake & Output 06/11/18 06/12/18 06/12/18 18:59 06:59 18:59 Weight 71.214 kg Other: Voiding Method Toilet Toilet # Voids 2 3 # Bowel Movements 1 - Exam Physical exam 78-year-old female up in room appears in no acute distress Lungs clear adequate air movement sats 100% on room air Heart S1-S2 audible regular denies chest Abdomen soft not distended nontender states still has left lower quadrant pain no nausea no bowel movement Extremities no edema - Labs CBC & Chem 7: 06/11/18 10:51 06/11/18 10:51 Labs: Microbiology - Last 24 Hours (Table) 06/09/18 13:56 Anaerobic Culture - Preliminary Hip - Right 06/09/18 13:56 Gram Stain - Final Hip - Right Wound Culture - Final Assessment and Plan Assessment: Impression Present on admission diffuse abdominal pain possible ileus History of chronic pain CAT scan abdomen pelvis on admission reviewed report indicate suspect colonic ileus with no evidence of a bowel obstruction mild sigmoid diverticulosis History of a prior CVA Ileus Plan No evidence of acute surgical abdomen We'll follow with you with further surgical recommendations IV kefzol 2 g every 8 hours per the attending Increase activity as tolerated DVT and GI prophylaxis The above impression and plan of care have been discussed and directed by signing physician. Kenia Sawant nurse practitioner acting as scribe for signing physician. <Brian Reid - Last Filed: 06/12/18 20:17> Objective - Vital Signs Vital signs: Vital Signs Temp 97.9 F 06/12/18 14:40 Pulse 81 06/12/18 14:40 Resp 16 06/12/18 14:40 BP 140/81 06/12/18 14:40 Pulse Ox 98 06/12/18 14:40 Intake & Output 06/12/18 06/12/18 06/13/18 06:59 18:59 06:59 Intake Total 400 Balance 400 Intake: Oral 400 Other: Voiding Method Toilet # Voids 3 3 - Labs CBC & Chem 7: 06/11/18 10:51 06/11/18 10:51 Assessment and Plan Assessment: As above. Patient was able to tolerate her barium enema today. Study was somewhat limited although no abnormality at the recent CAT scan hepatic flexure site seen. Still have no definitive explanation for the patient's ongoing pain. Will resume diet. Stable for discharge from my standpoint. Consider outpatient tertiary care GI evaluation if pain persists. We'll sign off at this point. Please contact if needed. (1) Abdominal pain Current Visit: No Status: Acute Code(s): R10.9 - UNSPECIFIED ABDOMINAL PAIN SNOMED Code(s): 61371541
[2018-06-12] MEDS: LATANOPROST 0.005% OPHTH DROPS 2.5 ML BTL BOTH EYES SCH (21:13)
[2018-06-12] MEDS: ALPRAZolam 0.25 MG TAB PO PRN (22:19)
[2018-06-13] MEDS: ceFAZolin IN SWFI 2 GM/20 ML SYRINGE IVP SCH ×2 (00:29→07:35)
[2018-06-13] MEDS: MORPHINE SULFATE 4 MG/ML SYRINGE IVP PRN (01:25)
[2018-06-13 06:16] VITALS: BP 111/61; PULSE 74; RESP 17; TEMP 97.9
[2018-06-13] MEDS: DORZOLAMIDE-TIMOLOL 2-0.5% DROPS 10 ML BTL BOTH EYES SCH (07:35)
[2018-06-13] MEDS: HYDROcodone/APAP 10-325MG 1 EACH TAB PO SCH (07:36)
[2018-06-13] MEDS: PREGABALIN 25 MG CAP PO SCH (07:36)
[2018-06-13] MEDS: ALPRAZolam 0.25 MG TAB PO PRN (07:36)
[2018-06-13] MEDS: tiZANidine 4 MG TAB PO SCH (07:36)
--- NOTE | 2018-06-13 08:14 | P.DS ---
Providers Date of admission: 06/08/18 00:27 Attending physician: Memo Morales Consults: 06/08/18 00:34 Consult Physician Routine Consulting Provider: Brian Reid Reason/Comments: ileus Do you want consulting provider notified?: Yes Primary care physician: Memo Morales - Discharge Diagnosis(es) (1) Ileus Current Visit: Yes Status: Acute (2) Abdominal pain Current Visit: No Status: Acute (3) History of CVA (cerebrovascular accident) Current Visit: No Status: Acute (4) Hyperlipemia Current Visit: No Status: Acute (5) Chronic pain syndrome Current Visit: No Status: Chronic (6) Degenerative disc disease, lumbar Current Visit: No Status: Chronic Hospital Course: This discharge summary 78-year-old black female essentially meant for large bowel ileus found on computed tomography scan of abdomen. She ended up having surgical evaluation and having barium and which did not show significant issue. She's not tolerating diet and voiding without difficulty but still complaining the left quadrant pain. Due to her chronic elements, she is referred to [facility] for appropriate second opinion. She is agreeable to this and will be discharged in stable but guarded condition. Patient Condition at Discharge: Fair Plan - Discharge Summary Discharge Rx Participant: Yes New Discharge Prescriptions: Continue Travoprost [Travatan Z 0.004%] 1 drop BOTH EYES HS Dorzolamide HCl/Timolol Maleat [Cosopt Eye Drops] 2 drop BOTH EYES BID HYDROcodone/APAP 10-325MG [[place] 10-325] 1 tab PO TID tiZANidine HCL [Zanaflex] 4 mg PO TID Morphine Sulfate [Ms Contin] 30 mg PO Q8H PRN PRN Reason: Pain Ciclopirox [[place]] 1 applic TOPICAL Q72H Pregabalin [Lyrica] 25 mg PO BID Melatonin 1 mg PO HS PRN PRN Reason: Insomnia Cmoqfrm-Ktcb-Wbdt [id number] [Excedrin] 2 tab PO Q6H PRN PRN Reason: Migraine Headache ALPRAZolam [Xanax] 0.25 mg PO TID PRN PRN Reason: Agitation Discharge Medication List Dorzolamide HCl/Timolol Maleat [Cosopt Eye Drops] 2 drop BOTH EYES BID 03/02/16 [History] Travoprost [Travatan Z 0.004%] 1 drop BOTH EYES HS 03/02/16 [History] HYDROcodone/APAP 10-325MG [[place] 10-325] 1 tab PO TID 05/01/17 [History] Morphine Sulfate [Ms Contin] 30 mg PO Q8H PRN 05/01/17 [History] tiZANidine HCL [Zanaflex] 4 mg PO TID 05/01/17 [History] Ciclopirox [[place]] 1 applic TOPICAL Q72H 02/09/18 [History] Wdnrgas-Zhrt-Omkf [id number] [Excedrin] 2 tab PO Q6H PRN 06/07/18 [History] Melatonin 1 mg PO HS PRN 06/07/18 [History] Pregabalin [Lyrica] 25 mg PO BID 06/07/18 [History] ALPRAZolam [Xanax] 0.25 mg PO TID PRN 06/08/18 [History] Follow up Appointment(s)/Referral(s): Memo Morales MD [Primary Care Provider] - 1 Week [facility] Visiting Nurse, [NON-STAFF] - 1-2 Days Patient Instructions/Handouts: Ileus (DC) Activity/Diet/Wound Care/Special Instructions: Regular diet. Activity as tolerated. Discharge Disposition: HOME SELF-CARE
== END 2018-06-13 09:08 | disposition home or self-care (01) | DRG 390 ==
LOC: EC 19:24 → 4MS4W 06-08 00:27
PROVIDERS: ADMIT Family Medicine; ATTEND Family Medicine
DX: K56.7 Ileus, unspecified (principal); G47.30 Sleep apnea, unspecified; G89.4 Chronic pain syndrome; H40.9 Unspecified glaucoma; K21.9 Gastro-esophageal reflux disease without esophagitis; K57.30 Diverticulosis of large intestine without perforation or abscess without bleeding; M06.9 Rheumatoid arthritis, unspecified; F41.9 Anxiety disorder, unspecified; E78.5 Hyperlipidemia, unspecified; F32.9 Major depressive disorder, single episode, unspecified; M51.36 Other intervertebral disc degeneration, lumbar region; Z96.653 Presence of artificial knee joint, bilateral; M79.7 Fibromyalgia; Z79.82 Long term (current) use of aspirin; Z99.89 Dependence on other enabling machines and devices; Z86.73 Personal history of transient ischemic attack (TIA), and cerebral infarction without residual deficits; Z87.891 Personal history of nicotine dependence; Z90.710 Acquired absence of both cervix and uterus; Z79.891 Long term (current) use of opiate analgesic; Z79.899 Other long term (current) drug therapy; Z88.6 Allergy status to analgesic agent; Z88.5 Allergy status to narcotic agent; Z88.7 Allergy status to serum and vaccine; Z88.8 Allergy status to other drugs, medicaments and biological substances; Z98.42 Cataract extraction status, left eye
CPT/HCPCS: 36415; 71046; 74177; 74270; 80048; 80053; 81003; 82150; 83605; 83690; 85025; 85610; 85730; 87070; 87075; 87086; 87205; 93005; 96374; 96375; 96376; 99285

== ENCOUNTER → 2018-12-19 | Outpatient (CLI) | payer MEDICARE ==
--- NOTE | 2018-12-19 16:46 | US ---
EXAMINATION TYPE: US carotid duplex BILAT DATE OF EXAM: 12/19/2018 COMPARISON: Carotid ultrasound August 17, 2015 CLINICAL HISTORY: R42 dizziness and giddiness; prior TIA x 2 per patient, with right sided weakness EXAM MEASUREMENTS: RIGHT: Peak Systolic Velocity (PSV) cm/sec ----- Right CCA: 77.6 ----- Right ICA: 82.0 ----- Right ECA: 54.9 ICA/CCA ratio: 1.1 RIGHT: End Diastole cm/sec ----- Right CCA: 30.3 ----- Right ICA: 29.2 ----- Right ECA: 10.4 LEFT: Peak Systolic Velocity (PSV) cm/sec ----- Left CCA: 73.5 ----- Left ICA: 112.5 ----- Left ECA: 70.0 ICA/CCA ratio: 1.5 LEFT: End Diastole cm/sec ----- Left CCA: 21.9 ----- Left ICA: 41.3 ----- Left ECA: 17.1 VERTEBRALS (direction of flow): Right Vertebral: Antegrade Left Vertebral: Antegrade Rhythm: Normal Grayscale images show persistent mild to moderate eccentric plaque at bilateral carotid bulb level. V elocity measurements and ratios remain within normal limits in visualized portion of both internal ca rotid arteries. IMPRESSION: Mild to moderate atherosclerotic change bilaterally without hemodynamically significant stenosis seen in either internal carotid artery. Criteria for Assigning % of Stenosis / Diameter reduction (Estimation based on the indirect measurements of the internal carotid artery velocities (ICA PSV). 1. Normal (no stenosis)=ICA PSV < 125 cm/s: ratio < 2.0: ICA EDV<40 cm/s. 2. Less than 50% stenosis=ICA PSV < 125 cm/s: ratio < 2.0: ICA EDV<40 cm/s. 3. 50 to 69% stenosis=ICA PSV of 125 to 230 cm/s: ration 2.0 ? 4.0: ICA EDV 40-100 cm/s. 4. Greater than 70% stenosis to near occlusion= ICA PSV > 230 cm/s: ratio > 4.0: ICA EDV > 100 cm/s. 5. Near occlusion= ICA PSV velocities may be low or undetectable: variable ratio and ICA EDV. 6. Total occlusion=unable to detect flow.
--- NOTE | 2018-12-19 17:04 | CT ---
EXAMINATION TYPE: CT brain wo con DATE OF EXAM: 12/19/2018 HISTORY: Dizziness and giddiness. CT DLP: 1132.13 mGycm. Automated Exposure Control for Dose Reduction was Utilized. TECHNIQUE: CT scan of the head is performed without contrast. COMPARISON: CT brain May 01, 2017. FINDINGS: There is no acute intracranial hemorrhage or midline shift identified. There is diffuse v entricular and sulcal prominence consistent with diffuse age-related cerebral atrophy. There is low- attenuation in the periventricular white matter consistent with chronic small vessel ischemic change. The globes are intact and the visualized sinuses are clear. Some thinning of calvarium high left frontal region axial image 46 is redemonstrated. Surgical change at level of left inferior orbital ri m and left zygoma are redemonstrated. IMPRESSION: No acute intracranial hemorrhage or midline shift. There is mild diffuse age-related ce rebral atrophy and chronic small vessel ischemic change redemonstrated. No significant change from pr ior CT.
== END | disposition home or self-care (01) ==
LOC: RADUSMAIN 16:00
PROVIDERS: ATTEND Physician Assistant
DX: G31.1 Senile degeneration of brain, not elsewhere classified (principal); I67.82 Cerebral ischemia; I65.23 Occlusion and stenosis of bilateral carotid arteries
CPT/HCPCS: 70450; 93880

== ENCOUNTER 2019-01-13 17:40 | Emergency (ER) | payer MEDICARE ==
[2019-01-13 17:50] VITALS: TEMP 98.4
[2019-01-13] MEDS ORDERED: SODIUM CHLORIDE 0.9% 500 ML 500 ML IV STA (18:29)
[2019-01-13] MEDS ORDERED: SODIUM CHLORIDE 0.9% 1,000 ML IV STA (18:29)
[2019-01-13] MEDS ORDERED: METOCLOPRAMIDE 5 MG/ML 2 ML VIAL IVP STA (18:30)
[2019-01-13] MEDS ORDERED: MECLIZINE 12.5 MG TAB PO STA (18:30)
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
[2019-01-13 18:44] LABS: Basophils % (A) 0 %; Eosinophils # (A) 0.1 k/uL (0-0.7); Eosinophils % (A) 2 %; HCT 32.1 % (34.0-46.0); HGB 10.3 gm/dL (11.4-16.0); Lymphocytes # (A) 1.7 k/uL (1.0-4.8); Lymphocytes % (A) 36 %; MCH 26.9 pg (25.0-35.0); Mean Platelet Volume 6.7; Monocytes # (A) 0.3 k/uL (0-1.0); Monocytes % (A) 6 %; Neutrophils # (A) 2.5 k/uL (1.3-7.7); Neutrophils % (A) 53 %; Platelet Count 162 k/uL (150-450); RBC 3.83 m/uL (3.80-5.40); RDW 14.1 % (11.5-15.5); WBC 4.7 k/uL (3.8-10.6)
[2019-01-13 18:54] LABS: Calcium 8.8 mg/dL (8.4-10.2); Potassium 3.6 mmol/L (3.5-5.1); Total Bilirubin 0.3 mg/dL (0.2-1.3); Total Protein 6.9 g/dL (6.3-8.2)
[2019-01-13 18:56] LABS: Partial Thromboplastin Time 25.2 sec (22.0-30.0); Prothrombin Time 10.5 sec (9.0-12.0)
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
--- NOTE | 2019-01-13 19:34 | XR ---
EXAMINATION TYPE: XR chest 2V DATE OF EXAM: 01/13/2019 COMPARISON: 06/07/2018 HISTORY: Altered mental status TECHNIQUE: Frontal and lateral views of the chest are obtained. FINDINGS: Heart and mediastinum are normal. Lungs are clear. Diaphragm is normal. There are chest le ads. Bony thorax is intact. IMPRESSION: Normal chest. No change.
[2019-01-13 20:09] VITALS: BP 119/73; PULSE 72; RESP 18
== END 2019-01-13 20:09 | disposition other institution (70) ==
LOC: EC 17:40
DX: I63.9 Cerebral infarction, unspecified (principal); M79.7 Fibromyalgia; M19.90 Unspecified osteoarthritis, unspecified site; M06.9 Rheumatoid arthritis, unspecified; G47.30 Sleep apnea, unspecified; Z99.89 Dependence on other enabling machines and devices; H40.9 Unspecified glaucoma; M54.9 Dorsalgia, unspecified; G89.29 Other chronic pain; F32.9 Major depressive disorder, single episode, unspecified; F41.9 Anxiety disorder, unspecified; Z86.73 Personal history of transient ischemic attack (TIA), and cerebral infarction without residual deficits; Z87.891 Personal history of nicotine dependence; Z79.891 Long term (current) use of opiate analgesic; Z79.899 Other long term (current) drug therapy; Z88.5 Allergy status to narcotic agent; Z88.6 Allergy status to analgesic agent; Z88.8 Allergy status to other drugs, medicaments and biological substances; Z96.653 Presence of artificial knee joint, bilateral
CPT/HCPCS: 36415; 93005; 80053; 82550; 84484; 85025; 85610; 85730; 71046; 70450; 99285; 96374; 96361; J2765

== ENCOUNTER → 2019-06-17 | Outpatient (CLI) | payer MEDICARE ==
--- NOTE | 2019-06-17 15:00 | XR ---
EXAMINATION TYPE: XR shoulder complete RT DATE OF EXAM: 06/17/2019 CLINICAL HISTORY: Pain with difficulty raising arm overhead. TECHNIQUE: Three views of the right shoulder are obtained. COMPARISON: Right shoulder x-ray May 01, 2017. FINDINGS: There is no acute fracture/dislocation evident in the right shoulder. Mild to moderate christina rowing of the acromioclavicular joint with mild spurring. Distal acromial morphology is unremarkable. Mild to moderate narrowing glenohumeral joint. The visualized ribs are intact and unremarkable. IMPRESSION: As above. Some progression of degenerative findings are present from prior. Consider MRI imaging.
== END | disposition home or self-care (01) ==
LOC: RADXRMAIN 14:30
PROVIDERS: ATTEND Family Medicine
DX: M19.011 Primary osteoarthritis, right shoulder (principal)

== ENCOUNTER 2019-08-28 15:13 | Inpatient (IN) | payer MEDICARE, MEDICAID ==
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
[2019-08-28] MEDS ORDERED: oxyCODONE-APAP 10-325MG 1 EACH TAB PO ONE (17:49)
[2019-08-28 18:04] LABS: Appearance,Urine Clear (Clear); Bilirubin,Urine Negative (Negative); Blood,Urine Negative (Negative); Color,Urine Light Yellow; Glucose,Urine (UA) Negative (Negative); Ketones,Urine Negative (Negative); Leukocyte Esterase,Urine Negative (Negative); Nitrite,Urine Negative (Negative); PH, Urine 5.5 (5.0-8.0); Protein,Urine Negative (Negative); Specific Gravity,Urine 1.007 (1.001-1.035); Urobilinogen,Urine <2.0 mg/dL (<2.0)
[2019-08-28 18:15] LABS: Amphetamine Screen,Urine Not Detected (NotDetected); Barbiturate Screen,Urine Not Detected (NotDetected); Benzodiazepines Screen,Urine Not Detected (NotDetected); Cocaine Screen,Urine Not Detected (NotDetected); Methadone Screen, Urine Not Detected (NotDetected); Opiate Screen,Urine Detected (NotDetected); Oxycodone Screen, Urine Not Detected (NotDetected); Phencyclidine Screen,Urine Not Detected (NotDetected); Tricyclic Antidepressant,Urine Not Detected (NotDetected); Urn Cannabinoid Scrn Not Detected (NotDetected)
[2019-08-28] MEDS ORDERED: LORazepam 1 MG TAB PO PRN (19:40)
[2019-08-28] MEDS ORDERED: ZIPRASIDONE 20 MG VIAL IM PRN (19:40)
[2019-08-28] MEDS ORDERED: MAG HYDROX/AL HYDROX/SIMETH 30 ML CUP PO PRN (19:40)
[2019-08-28] MEDS ORDERED: MELATONIN 1 MG TAB PO PRN (19:47)
[2019-08-28] MEDS: PREGABALIN 25 MG CAP PO SCH (21:32)
[2019-08-28] MEDS: traZODone HCL 50 MG TAB PO SCH (21:32)
[2019-08-28] MEDS: ASPIRIN 81 MG PO SCH (21:32)
[2019-08-28] MEDS: DORZOLAMIDE-TIMOLOL 2.23%/0.68 10ML BTL BOTH EYES SCH (21:32)
[2019-08-28] MEDS: LATANOPROST 0.005% OPHTH DROPS 2.5 ML BTL BOTH EYES SCH (21:33)
[2019-08-28] MEDS: oxyCODONE-APAP 10-325MG 1 EACH TAB PO PRN (23:17)
[2019-08-29] MEDS: ASPIRIN 81 MG PO SCH ×3 (08:34→21:41)
[2019-08-29] MEDS: PREGABALIN 25 MG CAP PO SCH ×2 (08:34→21:41)
[2019-08-29] MEDS: DORZOLAMIDE-TIMOLOL 2.23%/0.68 10ML BTL BOTH EYES SCH ×2 (08:35→21:42)
[2019-08-29] MEDS: oxyCODONE-APAP 10-325MG 1 EACH TAB PO PRN (08:36)
[2019-08-29 08:55] LABS: Basophils % (A) 1 %; Eosinophils # (A) 0.1 k/uL (0-0.7); Eosinophils % (A) 2 %; HCT 37.9 % (34.0-46.0); HGB 11.6 gm/dL (11.4-16.0); Lymphocytes # (A) 2.2 k/uL (1.0-4.8); Lymphocytes % (A) 44 %; MCHC 30.7 g/dL (31.0-37.0); MCV 84.8 fL (80.0-100.0); Mean Platelet Volume 6.5; Monocytes # (A) 0.3 k/uL (0-1.0); Monocytes % (A) 6 %; Neutrophils # (A) 2.2 k/uL (1.3-7.7); Neutrophils % (A) 45 %; Platelet Count 210 k/uL (150-450); RBC 4.47 m/uL (3.80-5.40); RDW 14.3 % (11.5-15.5)
[2019-08-29] MEDS ORDERED: CITALOPRAM HYDROBROMIDE 20 MG TAB PO SCH (09:00)
[2019-08-29 09:08] LABS: ALT 15 U/L (9-52); AST 21 U/L (14-36); African American GFR (CKD) >90 (>60 ml/min/1.73 sqM); Albumin 4.8 g/dL (3.5-5.0); Alkaline Phosphatase 76 U/L (38-126); Anion Gap 12 mmol/L; Blood Urea Nitrogen 12 mg/dL (7-17); Calcium 9.6 mg/dL (8.4-10.2); Carbon Dioxide 27 mmol/L (22-30); Chloride 102 mmol/L (98-107); Cholesterol 248 mg/dL (<200); Glucose 110 mg/dL (74-99); HDL Cholesterol 55 mg/dL (40-60); LDL Cholesterol,Calculated 172 mg/dL (0-99); Non-African American GFR(CKD) 82 (>60 ml/min/1.73 sqM); Potassium 4.1 mmol/L (3.5-5.1); Sodium 141 mmol/L (137-145); Total Bilirubin 0.5 mg/dL (0.2-1.3); Total Protein 8.3 g/dL (6.3-8.2); Triglycerides 104 mg/dL (<150)
[2019-08-29] MEDS: tiZANidine 4 MG TAB PO PRN ×2 (09:53→21:44)
[2019-08-29 12:30] VITALS: BMI 23.3
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
[2019-08-29] MEDS: MORPHINE SULFATE ER 30 MG TABLET PO SCH ×2 (15:55→22:43)
[2019-08-29] MEDS ORDERED: MORPHINE SULFATE ER 30 MG TABLET PO SCH (16:00)
[2019-08-29] MEDS: busPIRone HCl 5 MG TAB PO PRN ×2 (17:31→22:42)
[2019-08-29] MEDS: SODIUM CHLORIDE 0.65% NASAL SPRAY 44 ML BTL NASAL PRN (21:40)
[2019-08-29] MEDS: MELATONIN 5 MG TABLET PO SCH (21:41)
[2019-08-29] MEDS: LATANOPROST 0.005% OPHTH DROPS 2.5 ML BTL BOTH EYES SCH (21:41)
[2019-08-29] MEDS: DULoxetine HCL 30 MG CAPSULE.DR PO SCH (21:41)
[2019-08-29] MEDS: traZODone HCL 50 MG TAB PO SCH (21:41)
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
[2019-08-30] MEDS: MAGNESIUM HYDROXIDE 2,400 MG/10 ML CUP PO PRN (02:57)
[2019-08-30] MEDS: DORZOLAMIDE-TIMOLOL 2.23%/0.68 10ML BTL BOTH EYES SCH ×2 (08:25→21:21)
[2019-08-30] MEDS: PREGABALIN 25 MG CAP PO SCH ×2 (08:26→20:25)
[2019-08-30] MEDS: ASPIRIN 81 MG PO SCH ×3 (08:26→22:19)
[2019-08-30] MEDS: MORPHINE SULFATE ER 30 MG TABLET PO SCH ×3 (08:26→22:19)
[2019-08-30] MEDS: busPIRone HCl 5 MG TAB PO PRN (08:27)
--- NOTE | 2019-08-30 09:40 | P.PN ---
Progress Note - Text Progress Note Date: 08/30/19 Interval History: Patient was seen after goalsetting group and was agreeable to speak to technical document writer in the office. Patient appeared to be somewhat tearful today describing feeling "hopeless" and describing having no meaning. She admits to ongoing depression. She states that her has been very supportive however she feels as she is a burden to him. She claims that he came up to the unit yesterday to visit her and dropped off" and a book for her to read. She claims that she is going to groups and attending to participate as best as she can. Patient states that her depression has been mildly improving on the medications and requested to have her BuSpar scheduled for her anxiety during the day. She admits to having fair energy and improving appetite. At this time patient continues to endorse suicidal ideations however no intent or plan at this time. She denies any homicidal ideations. Patient denies any auditory, visual hallucinations and denies any paranoia or delusions. Patient denies any side effects from the medications and has been compliant with meds. Mental Status Exam: General Appearance: Patient appears to be stated age is thin and tall, alert, and directable. Improved hygiene and grooming. Walking with a walker. Behavior: Patient is calmly seated without any agitated behavior. Tearful at times. Speech: Patient's speech is fluent and nonpressured. Soft-spoken. Mood/Affect: Patient reports their mood is depressed and anxious, affect is congruent Suicidality/Homicidality: Admits to suicidal ideations, no intent or plan. Perceptions: Patient denies any auditory or visual hallucinations. Though content/process: There is no evidence of any delusional thought content and thought process is linear and goal-directed. Depressive content. Memory and concentration: AOX3, grossly intact for the purposes of this session Judgment and insight: poor, mildly improving. Assessment Major depressive disorder without psychotic features Anxiety disorder unspecified Plan: -Patient continues to meet criteria for inpatient psychiatric admission for symptom stabilization and safety. Patient has signed adult voluntary form and medication consent and was placed in patient's chart. -Medications: Will continue Cymbalta 30 mg daily at bedtime for mood/pain. Tomorrow will start the addition of 20 mg of Cymbalta every morning as well. Continue with melatonin 5 mg nightly for sleep. BuSpar 7.5 mg twice a day for anxiety. Discontinue trazodone and switched with the Remeron 15 mg daily at bedtime for sleep/mood/appetite. -When necessary Geodon for agitation/aggression. -NRT -needed as patient does not smoke -SW on board for discharge planning.
[2019-08-30] MEDS: busPIRone HCl 5 MG TAB PO SCH ×2 (10:37→20:25)
[2019-08-30] MEDS: tiZANidine 4 MG TAB PO PRN (10:38)
[2019-08-30] MEDS: HYDROcodone/APAP 10-325MG 1 EACH TAB PO PRN ×2 (10:39→20:29)
[2019-08-30] MEDS: MIRTAZAPINE 15 MG TAB PO SCH (20:25)
[2019-08-30] MEDS: DULoxetine HCL 30 MG CAPSULE.DR PO SCH (20:25)
[2019-08-30] MEDS: MELATONIN 5 MG TABLET PO SCH (20:25)
[2019-08-30] MEDS: LATANOPROST 0.005% OPHTH DROPS 2.5 ML BTL BOTH EYES SCH (21:20)
[2019-08-31] MEDS: HYDROcodone/APAP 10-325MG 1 EACH TAB PO PRN (04:47)
[2019-08-31] MEDS: MORPHINE SULFATE ER 30 MG TABLET PO SCH ×3 (08:25→22:29)
[2019-08-31] MEDS: ASPIRIN 81 MG PO SCH ×3 (08:26→20:45)
[2019-08-31] MEDS: DORZOLAMIDE-TIMOLOL 2.23%/0.68 10ML BTL BOTH EYES SCH ×2 (08:27→20:46)
[2019-08-31] MEDS: busPIRone HCl 5 MG TAB PO SCH ×2 (08:27→20:46)
[2019-08-31] MEDS: DULoxetine HCL 20 MG CAPSULE.DR PO SCH (08:27)
[2019-08-31] MEDS: PREGABALIN 25 MG CAP PO SCH ×2 (08:28→20:48)
[2019-08-31] MEDS: SODIUM CHLORIDE 0.65% NASAL SPRAY 44 ML BTL NASAL PRN ×2 (08:33→20:50)
[2019-08-31] MEDS: MAGNESIUM HYDROXIDE 2,400 MG/10 ML CUP PO PRN (10:26)
--- NOTE | 2019-08-31 14:43 | P.PN ---
Progress Note - Text Progress Note Date: 08/31/19 This is a psychiatric progress note as a cross coverage for Dr. Morton Chief complaint: "I feel better today " Subjective: The patient has been seen today as follow-up, chart reviewed, case discussed with the treatment team. Patient slept about 4-5 hours last night. Patient has been going to groups and other unit activities. Patient reports better appetite today. Patient reports overall feels better emotionally, less depressed and more active and motivated. She denies any suicidal thoughts today, reports last time has any suicidal thoughts was yesterday evening. Patient was able to go to more groups and be more interactive with appears today. She reports feel more relaxed and less anxious today. She denies any current auditory or visual hallucinations, reported last time was hearing voices was few months ago and it was mainly her internal thoughts not external voices. She denies any current paranoid ideation and no delusions could be elicited. She denies any manic symptoms including a euphoric mood, flight of ideas, and she doesn't present with pressured speech, tangential or circumstantial thoughts. The patient is compliant with her medications and denies any adverse reactions. Objective: Vitals has been reviewed. Mental status examination; Appearance: The patient appears stated age, adequately groomed and dressed, no specific features. Gait/posture: Normal gait, Normal arm swinging: No abnormal movements. Attitude and behavior: engaged, cooperative, eye contact. Motor activity: Normal psychomotor activity Speech: Normal rate, tone. Mood: Depressed, anxious Affect: Constricted Thought form: goal-directed, linear, coherent. Thought content: Non-delusional, denies suicidal thoughts, denies homicidal thoughts, denies intentions or plans. Perception: Denies any current auditory or visual hallucinations Attention: No impairment. Orientation: Patient patient was fully oriented to time place person and situation. Insight: Patient has fair insight about his psychiatric disorder. Judgment: Patient has fair judgment about his psychiatric treatment. Assessment: Major depressive disorder, recurrent, without psychotic features. Unspecified anxiety disorder. Plan: Continue inpatient level of care for further stabilization on medications and he still has suicidal thoughts. Precautions: Continue 15 minutes check for safety. Consider medical consultation if any acute medical issues arise. Provide the patient individual, group therapy, substance use disorder counseling to give better insight and learn coping skills. Medications: And tinea Cymbalta 20 mg in the morning and 50 mg at bedtime for depression and anxiety. Continue BuSpar 7.5 mg twice daily for anxiety symptoms. Continue Remeron 15 mg at bedtime for depression, anxiety and to help with insomnia. Continue melatonin and increase the dose to 10 mg to help with insomnia. Discharge patient to OUTPATIENT services upon a stabilization
[2019-08-31] MEDS: SENNOSIDES 8.6 MG TAB PO PRN (18:56)
[2019-08-31] MEDS: MELATONIN 5 MG TABLET PO SCH (20:45)
[2019-08-31] MEDS: MIRTAZAPINE 15 MG TAB PO SCH (20:45)
[2019-08-31] MEDS: DULoxetine HCL 30 MG CAPSULE.DR PO SCH (20:45)
[2019-08-31] MEDS: LATANOPROST 0.005% OPHTH DROPS 2.5 ML BTL BOTH EYES SCH (20:45)
[2019-08-31] MEDS: DOCUSATE 100 MG CAP PO SCH (20:45)
[2019-09-01] MEDS: HYDROcodone/APAP 10-325MG 1 EACH TAB PO PRN (03:26)
[2019-09-01] MEDS: DORZOLAMIDE-TIMOLOL 2.23%/0.68 10ML BTL BOTH EYES SCH ×2 (08:31→20:59)
[2019-09-01] MEDS: DULoxetine HCL 20 MG CAPSULE.DR PO SCH (08:32)
[2019-09-01] MEDS: MORPHINE SULFATE ER 30 MG TABLET PO SCH ×3 (08:33→23:47)
[2019-09-01] MEDS: ASPIRIN 81 MG PO SCH ×3 (08:33→21:01)
[2019-09-01] MEDS: DOCUSATE 100 MG CAP PO SCH ×2 (08:33→21:00)
[2019-09-01] MEDS: PREGABALIN 25 MG CAP PO SCH ×2 (08:34→21:01)
[2019-09-01] MEDS: busPIRone HCl 5 MG TAB PO SCH (08:36)
--- NOTE | 2019-09-01 10:07 | P.PN ---
Progress Note - Text Progress Note Date: 09/01/19 This is a psychiatric progress note as a cross coverage for Dr. Morton Chief complaint: "My anxiety is little bit high today " Subjective: The patient has been seen today as follow-up, chart reviewed, case discussed with the treatment team. Patient slept about 5 hours last night and reports feeling better sleep after increasing Melatonin to 10 mg. Patient continued to go to groups and other unit activities. Patient reports fair appetite today. Patient reports her depression is improving and only has "waves of feeling depressed". She denies any suicidal thoughts and reports last time had any suicidal ideation was 2 days ago. She reports her anxiety is to some degree higher today and has racing thoughts. She denies any psychotic symptoms including auditory/visual hallucinations, paranoid ideation, and no delusions could be elicited. She denies any manic symptoms. Patient continued to be compliant with her medication and denies any adverse reactions. Objective: Vitals has been reviewed. Mental status examination; Appearance: The patient appears stated age, adequately groomed and dressed, no specific features. Gait/posture: Normal gait, Normal arm swinging: No abnormal movements. Attitude and behavior: engaged, cooperative, eye contact. Motor activity: Normal psychomotor activity Speech: Normal rate, tone. Mood: Anxious. Affect: Constricted Thought form: goal-directed, linear, coherent. Thought content: Non-delusional, denies suicidal thoughts, denies homicidal thoughts, denies intentions or plans. Perception: Denies any current auditory or visual hallucinations Attention: No impairment. Orientation: Patient patient was fully oriented to time place person and situation. Insight: Patient has fair insight about his psychiatric disorder. Judgment: Patient has fair judgment about his psychiatric treatment. Assessment: Major depressive disorder, recurrent, without psychotic features. Unspecified anxiety disorder. Plan: Continue inpatient level of care for further stabilization on medications and he still has suicidal thoughts. Precautions: Continue 15 minutes check for safety. Consider medical consultation if any acute medical issues arise. Provide the patient individual, group therapy, substance use disorder counseling to give better insight and learn coping skills. Medications: Continue Cymbalta 20 mg in the morning and 30 mg at bedtime for depression and anxiety. Increase BuSpar to 10mg twice daily for anxiety symptoms. Continue Remeron 15 mg at bedtime for depression, anxiety and to help with insomnia. Continue melatonin 10 mg at bedtime to help with insomnia. Discharge patient to OUTPATIENT services upon a stabilization
[2019-09-01] MEDS ORDERED: LACTULOSE 20 GM/30 ML CUP PO ONE (19:00)
[2019-09-01] MEDS: LATANOPROST 0.005% OPHTH DROPS 2.5 ML BTL BOTH EYES SCH (20:59)
[2019-09-01] MEDS: DULoxetine HCL 30 MG CAPSULE.DR PO SCH (21:00)
[2019-09-01] MEDS: busPIRone HCl 10 MG TAB PO SCH (21:00)
[2019-09-01] MEDS: MELATONIN 5 MG TABLET PO SCH (21:00)
[2019-09-01] MEDS: MIRTAZAPINE 15 MG TAB PO SCH (21:01)
[2019-09-02] MEDS: HYDROcodone/APAP 10-325MG 1 EACH TAB PO PRN ×2 (03:30→10:28)
[2019-09-02] MEDS: DULoxetine HCL 20 MG CAPSULE.DR PO SCH (09:06)
[2019-09-02] MEDS: PREGABALIN 25 MG CAP PO SCH ×2 (09:06→20:51)
[2019-09-02] MEDS: DOCUSATE 100 MG CAP PO SCH ×2 (09:06→20:51)
[2019-09-02] MEDS: ASPIRIN 81 MG PO SCH ×3 (09:06→21:21)
[2019-09-02] MEDS: DORZOLAMIDE-TIMOLOL 2.23%/0.68 10ML BTL BOTH EYES SCH ×2 (09:06→20:52)
[2019-09-02] MEDS: busPIRone HCl 10 MG TAB PO SCH (09:06)
[2019-09-02] MEDS: MORPHINE SULFATE ER 30 MG TABLET PO SCH ×3 (09:07→23:20)
[2019-09-02] MEDS: SENNOSIDES 8.6 MG TAB PO PRN (09:07)
--- NOTE | 2019-09-02 11:22 | P.PN ---
Progress Note - Text Progress Note Date: 09/02/19 Interval History: Patient was seen wandering the hallways and was agreeable to speak to check writer salesperson in the office. Patient appeared to be less tearful this morning and was more directable during conversation. Patient claims that her Cymbalta is helping her depression "quite a bit" and states that her anxiety is improving mildly as well on the BuSpar. Patient states that the Cymbalta is making her feel somewhat sleepy during the day and requested to have it changed to nighttime. She claims that she is feeling more optimistic at this time and more future oriented however at this time complains of ongoing difficulties with sleep. She states that she is sleeping interrupted during the nighttime and requested to have her Remeron titrated up. She states that her her did visit over the weekend and is supportive and requested to have him come visit during the day today as he has difficulties with transportation. She claims that she is attempting to go to some of the groups and trying to participate as best as she can. She admits to having fair energy and improving appetite. She complains of ongoing constipation. She denies any suicidal ideations intent or plan at this time and denies any homicidal ideations. Patient denies any auditory, visual hallucinations and denies any paranoia or delusions. Patient denies any side effects from the medications and has been compliant with meds. Mental Status Exam: General Appearance: Patient appears to be stated age is thin and tall, alert, and directable. Improved hygiene and grooming. Walking with a walker. Behavior: Patient is calmly seated without any agitated behavior. Less tearful today. Speech: Patient's speech is fluent and nonpressured. Mood/Affect: Patient reports their mood is mildly improving, affect is congruent Suicidality/Homicidality: Denies any suicidal or homicidal ideations, no intent or plan. Perceptions: Patient denies any auditory or visual hallucinations. Though content/process: There is no evidence of any delusional thought content and thought process is linear and goal-directed. More future oriented. Memory and concentration: AOX3, grossly intact for the purposes of this session Judgment and insight: mildly improving. Assessment Major depressive disorder without psychotic features Anxiety disorder unspecified Plan: -Patient continues to meet criteria for inpatient psychiatric admission for symptom stabilization and safety. Patient has signed adult voluntary form and medication consent and was placed in patient's chart. -Medications: Will increase Cymbalta 60 mg nightly for mood/pain. Continue with melatonin 10 mg nightly for sleep. Increased BuSpar 15 mg twice a day for anxiety. Increased Remeron 30 mg daily at bedtime for sleep/mood/appetite. -When necessary Geodon for agitation/aggression. -NRT -needed as patient does not smoke -SW on board for discharge planning.
--- NOTE | 2019-09-02 11:55 | P.PN ---
Subjective Patient much improved from telephone conversation I had with her in the office. Patient complains of constipation suppositories glycerin Objective - Vital Signs Vital signs: Vital Signs Temp 98.5 F 09/02/19 06:42 Pulse 81 09/02/19 06:42 Resp 18 09/02/19 06:42 BP 132/62 09/02/19 06:42 Pulse Ox 96 09/02/19 06:42 Intake & Output 09/01/19 09/02/19 09/02/19 18:59 06:59 18:59 Weight 67.9 kg - Constitutional General appearance: Present: mild distress - EENT Eyes: Present: PERRLA Ears: bilateral: normal - Neck Neck: Present: normal ROM - Respiratory Respiratory: bilateral: diminished - Cardiovascular Rhythm: regular - Gastrointestinal General gastrointestinal: Present: soft - Integumentary Integumentary: Present: normal - Neurologic Neurologic: Present: CNII-XII intact - Musculoskeletal Musculoskeletal Comment(s): Ambulate with walker - Psychiatric Psychiatric: Present: A&O x's 3, appropriate affect, intact judgment & insight - Labs CBC & Chem 7: 08/29/19 08:25 08/29/19 08:25 Assessment and Plan Plan: Assessment Depression with suicidal ideation Acute on chronic pain syndrome Constipation Hyperlipidemia fibromyalgia GERD Rheumatoid arthritis Degenerative joint disease Sleep apnea Glaucoma Anxiety Plan Glycerin suppository for constipation We'll continue to monitor patient condition
[2019-09-02] MEDS: DULoxetine HCL 60 MG CAPSULE.DR PO SCH (20:49)
[2019-09-02] MEDS: busPIRone HCl 5 MG TAB PO SCH (20:50)
[2019-09-02] MEDS: SENNOSIDES-DOCUSATE SODIUM 1 EACH TAB PO SCH (20:50)
[2019-09-02] MEDS: MELATONIN 5 MG TABLET PO SCH (20:50)
[2019-09-02] MEDS: LATANOPROST 0.005% OPHTH DROPS 2.5 ML BTL BOTH EYES SCH (20:52)
[2019-09-02] MEDS ORDERED: MIRTAZAPINE 15 MG TAB PO SCH (21:00)
[2019-09-03] MEDS: HYDROcodone/APAP 10-325MG 1 EACH TAB PO PRN ×2 (03:18→12:11)
[2019-09-03] MEDS: MAGNESIUM HYDROXIDE 2,400 MG/10 ML CUP PO PRN (03:18)
[2019-09-03] MEDS: PREGABALIN 25 MG CAP PO SCH ×2 (08:17→20:43)
[2019-09-03] MEDS: DORZOLAMIDE-TIMOLOL 2.23%/0.68 10ML BTL BOTH EYES SCH ×2 (08:17→20:41)
[2019-09-03] MEDS: busPIRone HCl 5 MG TAB PO SCH (08:17)
[2019-09-03] MEDS: ASPIRIN 81 MG PO SCH ×3 (08:18→22:54)
[2019-09-03] MEDS: SENNOSIDES-DOCUSATE SODIUM 1 EACH TAB PO SCH ×2 (08:18→20:43)
[2019-09-03] MEDS: MORPHINE SULFATE ER 30 MG TABLET PO SCH ×3 (08:18→22:52)
[2019-09-03] MEDS: DOCUSATE 100 MG CAP PO SCH ×2 (08:18→20:40)
--- NOTE | 2019-09-03 10:17 | P.PN ---
Progress Note - Text Progress Note Date: 09/03/19 Interval History: Patient was seen taking part in group and was agreeable to speak to scientific writer in the office. Patient appeared to have a brighter affect this morning and it was more directable during conversation. She states that she was feeling as she is in a "hole" and that she was clinging on to anything she could to stay out of it and was too prideful to ask for help financially from her relatives. She states that now they are more likely to help her financially and that her son is send ing money to her from [employer]. She also states that she feels her medications are helping her depression and states that her anxiety has improved greatly. She did state that she is able to feel calm or during group and participate more. She also states that her sleep was improved last night and she got approximately 3 hours total of sleep. She states that she would like to have her Remeron increased at this time. She admits to having fair energy and improving appetite. She was more future oriented today speaking about her goals in life. She denies any suicidal ideations intent or plan at this time and denies any homicidal ideations. Patient denies any auditory, visual hallucinations and denies any paranoia or delusions. Patient denies any side effects from the medications and has been compliant with meds. Mental Status Exam: General Appearance: Patient appears to be stated age is thin and tall, alert, and directable. Improved hygiene and grooming. Walking with a walker. Behavior: Patient is calmly seated without any agitated behavior. Cooperative. Speech: Patient's speech is fluent and nonpressured. Mood/Affect: Patient reports their mood is mildly improving, affect is congruent Suicidality/Homicidality: Denies any suicidal or homicidal ideations, no intent or plan. Perceptions: Patient denies any auditory or visual hallucinations. Though content/process: There is no evidence of any delusional thought content and thought process is linear and goal-directed. More future oriented and more insightful today. Memory and concentration: AOX3, grossly intact for the purposes of this session Judgment and insight: mildly improving. Assessment Major depressive disorder without psychotic features Anxiety disorder unspecified Plan: -Patient continues to meet criteria for inpatient psychiatric admission for symptom stabilization and safety. Patient has signed adult voluntary form and medication consent and was placed in patient's chart. -Medications: Will continue with Cymbalta 60 mg nightly for mood/pain. Continue with melatonin 10 mg nightly for sleep. Increased BuSpar 20 mg twice a day for anxiety. Increased Remeron 45 mg daily at bedtime for sleep/mood/appetite. -When necessary Geodon for agitation/aggression. -Appreciate medicine recommendations for constipation. We'll continue to monitor. -NRT -needed as patient does not smoke -SW on board for discharge planning. Patient is stabilizing clinically and will plan for likely discharge in 1-2 days back home.
[2019-09-03 11:14] VITALS: RESP 18
[2019-09-03] MEDS: DULoxetine HCL 60 MG CAPSULE.DR PO SCH (20:40)
[2019-09-03] MEDS: busPIRone HCl 10 MG TAB PO SCH (20:40)
[2019-09-03] MEDS: MELATONIN 5 MG TABLET PO SCH (20:40)
[2019-09-03] MEDS: LATANOPROST 0.005% OPHTH DROPS 2.5 ML BTL BOTH EYES SCH (20:41)
[2019-09-03] MEDS ORDERED: MIRTAZAPINE 45 MG TABLET PO SCH (21:00)
[2019-09-04] MEDS: HYDROcodone/APAP 10-325MG 1 EACH TAB PO PRN ×2 (02:48→11:59)
[2019-09-04 07:14] VITALS: TEMP 98.3
[2019-09-04] MEDS: DORZOLAMIDE-TIMOLOL 2.23%/0.68 10ML BTL BOTH EYES SCH (08:46)
[2019-09-04] MEDS: DOCUSATE 100 MG CAP PO SCH (08:48)
[2019-09-04] MEDS: busPIRone HCl 10 MG TAB PO SCH (08:49)
[2019-09-04] MEDS: MORPHINE SULFATE ER 30 MG TABLET PO SCH ×2 (08:49→15:08)
[2019-09-04] MEDS: ASPIRIN 81 MG PO SCH ×2 (08:49→15:08)
[2019-09-04] MEDS: SENNOSIDES-DOCUSATE SODIUM 1 EACH TAB PO SCH (08:49)
[2019-09-04] MEDS: PREGABALIN 25 MG CAP PO SCH (08:49)
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
[2019-09-04 16:16] VITALS: BP 117/67; PULSE 96
== END 2019-09-04 15:34 | disposition home or self-care (01) | DRG 885 ==
LOC: EC 15:13 → 3MHU 18:45
PROVIDERS: ADMIT Psychiatry & Neurology Psychiatry; ATTEND Psychiatry & Neurology Psychiatry
DX: F33.9 Major depressive disorder, recurrent, unspecified (principal); R45.851 Suicidal ideations; E78.5 Hyperlipidemia, unspecified; F41.0 Panic disorder [episodic paroxysmal anxiety]; G47.30 Sleep apnea, unspecified; G89.4 Chronic pain syndrome; H40.9 Unspecified glaucoma; I10 Essential (primary) hypertension; K21.9 Gastro-esophageal reflux disease without esophagitis; K59.00 Constipation, unspecified; M06.9 Rheumatoid arthritis, unspecified; M19.90 Unspecified osteoarthritis, unspecified site; M79.7 Fibromyalgia; Z79.899 Other long term (current) drug therapy; Z80.9 Family history of malignant neoplasm, unspecified; Z86.73 Personal history of transient ischemic attack (TIA), and cerebral infarction without residual deficits; Z87.891 Personal history of nicotine dependence; Z90.710 Acquired absence of both cervix and uterus; Z96.653 Presence of artificial knee joint, bilateral; Z98.42 Cataract extraction status, left eye; Z88.6 Allergy status to analgesic agent; Z88.5 Allergy status to narcotic agent; Z88.8 Allergy status to other drugs, medicaments and biological substances; Z99.89 Dependence on other enabling machines and devices
CPT/HCPCS: 80053; 80061; 80306; 81003; 82075; 83036; 84443; 85025; 99285

== ENCOUNTER 2019-10-15 10:20 | Observation (INO) | payer MEDICARE, OTHER ==
[2019-10-15] MEDS ORDERED: ASPIRIN 81 MG PO STA (11:31)
[2019-10-15] MEDS ORDERED: SODIUM CHLORIDE 0.9% 500 ML 500 ML IV STA (11:31)
[2019-10-15] MEDS ORDERED: MORPHINE SULFATE 4 MG/ML SYRINGE IVP STA ×2 (11:35→13:14)
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
[2019-10-15 11:53] LABS: Basophils % (A) 1 %; Eosinophils # (A) 0.1 k/uL (0-0.7); Eosinophils % (A) 2 %; HCT 34.9 % (34.0-46.0); HGB 11.4 gm/dL (11.4-16.0); Lymphocytes # (A) 1.6 k/uL (1.0-4.8); Lymphocytes % (A) 25 %; MCH 27.4 pg (25.0-35.0); MCHC 32.6 g/dL (31.0-37.0); MCV 84.1 fL (80.0-100.0); Mean Platelet Volume 7.5; Monocytes # (A) 0.4 k/uL (0-1.0); Monocytes % (A) 6 %; Neutrophils # (A) 4.2 k/uL (1.3-7.7); Neutrophils % (A) 64 %; Platelet Count 236 k/uL (150-450); RBC 4.14 m/uL (3.80-5.40); RDW 13.9 % (11.5-15.5); WBC 6.5 k/uL (3.8-10.6)
[2019-10-15] MEDS ORDERED: ONDANSETRON 4 MG/2 ML VIAL IVP STA (11:57)
[2019-10-15 12:01] LABS: ALT 10 U/L (4-34); AST 22 U/L (14-36); African American GFR (CKD) >90 (>60 ml/min/1.73 sqM); Albumin 4.5 g/dL (3.5-5.0); Alkaline Phosphatase 84 U/L (38-126); Amylase 82 U/L (30-110); Anion Gap 8 mmol/L; Blood Urea Nitrogen 13 mg/dL (7-17); Calcium 9.3 mg/dL (8.4-10.2); Carbon Dioxide 27 mmol/L (22-30); Chloride 97 mmol/L (98-107); Glucose 106 mg/dL (74-99); Non-African American GFR(CKD) 85 (>60 ml/min/1.73 sqM); Potassium 4.2 mmol/L (3.5-5.1); Sodium 132 mmol/L (137-145); Total Bilirubin 0.6 mg/dL (0.2-1.3); Total Protein 8.1 g/dL (6.3-8.2)
[2019-10-15 12:11] LABS: Partial Thromboplastin Time 24.6 sec (22.0-30.0); Prothrombin Time 10.1 sec (9.0-12.0)
--- NOTE | 2019-10-15 12:39 | XR ---
EXAMINATION TYPE: XR chest 2V DATE OF EXAM: 10/15/2019 COMPARISON: 01/13/2019 HISTORY: Shortness of breath TECHNIQUE: Frontal and lateral views of the chest are obtained. FINDINGS: Scattered senescent parenchymal changes noted. Hyperinflation compatible with COPD. No evidence for infiltrate. No evidence for atelectasis. Heart size is stable. Mediastinal structures are stable and grossly unremarkable. No evidence for hilar prominence. Degenerative changes dorsal spine. IMPRESSION: 1. No evidence for acute pulmonary disease.
--- NOTE | 2019-10-15 12:40 | XR ---
EXAMINATION TYPE: XR KUB DATE OF EXAM: 10/15/2019 COMPARISON: NONE HISTORY: Pain TECHNIQUE: Single supine KUB image of the abdomen is obtained FINDINGS: Small bowel demonstrates no evidence for dilatation or air fluid levels. Gas and fecal material is seen in non-distended colon. No convincing evidence for pneumoperitoneum. No unusual calcifications. The lung bases are clear. The osseous structures are intact. IMPRESSION: 1. Nonspecific nonobstructive bowel gas pattern.
[2019-10-15 13:10] LABS: Appearance,Urine Clear (Clear); Bilirubin,Urine Negative (Negative); Blood,Urine Negative (Negative); Color,Urine Yellow; Glucose,Urine (UA) Negative (Negative); Ketones,Urine Negative (Negative); Leukocyte Esterase,Urine Negative (Negative); Nitrite,Urine Negative (Negative); Protein,Urine Negative (Negative); Specific Gravity,Urine 1.016 (1.001-1.035); Urobilinogen,Urine <2.0 mg/dL (<2.0)
[2019-10-15] MEDS ORDERED: NITROGLYCERIN SL TABS 0.4 MG TAB SUBLINGUAL PRN (13:30)
[2019-10-15] MEDS: MORPHINE SULFATE 2 MG/ML SYRINGE IVP PRN ×3 (14:33→20:58)
[2019-10-15] MEDS ORDERED: ACETAMINOPHEN IV (For NPO) 1,000 MG in EMPTY BAG 1 BAG IVPB PRN (16:48)
[2019-10-15] MEDS ORDERED: PROMETHAZINE INJ 6.25 MG in SODIUM CHLORIDE 0.9% 50 ML IVPB PRN (16:49)
[2019-10-15] MEDS ORDERED: SODIUM CHLORIDE 0.65% NASAL SPRAY 44 ML BTL NASAL PRN (17:26)
--- NOTE | 2019-10-15 17:33 | P.HPIM ---
History of Present Illness 79-year-old female presented emergency room with complaints of chest pain. States it's been ongoing for 2 days. Complains also of epigastric pain states she's had diaphoresis with nausea and vomiting 2 Dr. lackey stool Patient has a history of bipolar glaucoma fibromyalgia chronic back pain with opioid dependence. Patient as sleep apnea uses CPAP machine Review of Systems Constitutional: Reports sweats Cardiovascular: Reports chest pain Gastrointestinal: Reports abdominal pain, Reports hematochezia Musculoskeletal: Reports myalgias Past Medical History Past Medical History: CVA/TIA, Eye Disorder, Fibromyalgia, GERD/Reflux, Hyperlipidemia, Memory Impairment, Musculoskeletal Disorder, Osteoarthritis (OA), Rheumatoid Arthritis (RA), Sleep Apnea/CPAP/BIPAP Additional Past Medical History / Comment(s): CHRONIC BACK PAIN, GLAUCOMA, CATARACT RIGHT EYE, HX OF ANEMIA, C-PAP MACHINE, HX OF CVA X2 IN 2009-DENIES ANY WEAKNESS OR PARALYSIS. USES WALKER. History of Any Multi-Drug Resistant Organisms: None Reported Past Surgical History: Back Surgery, Hysterectomy, Joint Replacement, Orthopedic Surgery Additional Past Surgical History / Comment(s): HX OF AUTO [id number] WITH MULTIPLE FACE AND HEAD SURGERYS TITANIUM IMPLANTS MOUTH,RECONSTRUCTED CHIN, ORBITS,FOREHEAD.SKULL? PLATE BUT PT NOT SURE., PAM KNEE REPLACEMENT, PAM NEWSOME REPLACEMENT. (3) BACK FUSIONS AND (2) LAMINECTOMYS. LEFT CATARACT SURGERY 08/19/14.BREAST BX-NEG, COLONOSCOPY.09/01/16 BACK SURGERY. Past Anesthesia/Blood Transfusion Reactions: No Reported Reaction Past Psychological History: Anxiety, Depression, Panic Disorder Smoking Status: Former smoker Past Alcohol Use History: None Reported Past Drug Use History: None Reported - Past Family History Brother(s) Family Medical History: Cancer Sister(s) Family Medical History: Cancer Medications and Allergies Home Medications Medication Instructions Recorded Confirmed Type Dorzolamide HCl/Timolol Maleat 1 drop BOTH EYES BID 03/02/16 10/15/19 History [Cosopt Eye Drops] Morphine Sulfate [Ms Contin] 30 mg PO Q8H 05/01/17 10/15/19 History tiZANidine HCL [Zanaflex] 4 mg PO BID PRN 05/01/17 10/15/19 History Pregabalin [Lyrica] 25 mg PO BID 06/07/18 10/15/19 History Aspirin EC [Ecotrin Low Dose] 81 mg PO TID 08/28/19 10/15/19 History Latanoprost/Pf [Latanoprost 0.005% 1 drop BOTH EYES HS 08/28/19 10/15/19 History Eye Drop] Hydrocodone/Acetaminophen [[place] 1 tab PO Q8H PRN 09/02/19 10/15/19 History 10-325] DULoxetine HCL [Cymbalta] 60 mg PO HS #30 capsule.dr 09/04/19 10/15/19 Rx Docusate [Colace] 100 mg PO BID 30 Days cap 09/04/19 10/15/19 Rx Melatonin 10 mg PO HS 30 Days tablet 09/04/19 10/15/19 Rx Mirtazapine [Remeron] 45 mg PO HS #30 tablet 09/04/19 10/15/19 Rx Sennosides-Docusate Sodium 1 each PO BID 30 Days tab 09/04/19 10/15/19 Rx [Senokot-S] Sodium Chloride 0.65% Nasal [Deep 2 spray NASAL TID PRN spray 09/04/19 10/15/19 Rx Sea (Saline)] busPIRone HCl [Buspar] 20 mg PO BID 30 Days tab 09/04/19 10/15/19 Rx Allergies Allergy/AdvReac Type Severity Reaction Status Date / Time codeine Allergy Itching Verified 10/15/19 12:20 tuberculin,PPD,multi-puncture Allergy Unknown Verified 10/15/19 12:20 ibuprofen [From Motrin] AdvReac gastrointestinal Verified 10/15/19 12:20 upset ketorolac tromethamine AdvReac makes her Verified 10/15/19 12:20 [From Toradol] feel funny tramadol HCl [From Ultram] AdvReac "upset Verified 10/15/19 12:20 stomach". Physical Exam Vitals: Vital Signs Temp Pulse Pulse Resp BP BP Pulse Ox 10/15/19 16:09 99.3 F 80 18 121/97 99 10/15/19 16:00 98.1 F 76 18 145/81 98 10/15/19 14:31 81 22 169/99 98 10/15/19 11:45 82 18 10/15/19 10:25 97.9 F 89 18 134/81 100 Intake and Output 10/15/19 10/15/19 10/15/19 06:59 14:59 22:59 Other: Weight 73.028 kg 73.028 kg - Constitutional General appearance: mild distress - EENT Eyes: PERRLA Ears: bilateral: normal - Neck Neck: normal ROM - Respiratory Respiratory: bilateral: CTA - Cardiovascular Rhythm: regular - Gastrointestinal Epigastric tenderness General gastrointestinal: soft, tenderness - Integumentary Integumentary: normal - Neurologic Neurologic: CNII-XII intact - Musculoskeletal Musculoskeletal: gait normal - Psychiatric Psychiatric: A&O x's 3, appropriate affect, intact judgment & insight Results CBC & Chem 7: 10/15/19 11:41 10/15/19 11:41 Labs: Abnormal Lab Results - Last 24 Hours (Table) 10/15/19 Range/Units 11:41 Sodium 132 L (137-145) mmol/L Chloride 97 L (98-107) mmol/L Glucose 106 H (74-99) mg/dL Chest x-ray: report reviewed Abdominal x-ray: report reviewed Thrombosis Risk Factor Assmnt - Choose All That Apply Any of the Below Risk Factors Present?: Yes Each Factor Represents 1 point: Obesity (BMI >25) Other Risk Factors: Yes Each Risk Factor Represents 3 Points: Age 75 years or older Other congenital or acquired thrombophilia - If yes, enter type in comment: No Thrombosis Risk Factor Assessment Total Risk Factor Score: 4 Thrombosis Risk Factor Assessment Level: Moderate Risk Assessment and Plan Plan: Assessment Chest pain Diarrhea with black stools Bipolar history Glaucoma History of CVA/TIA Fibromyalgia Chronic back pain rheumatoid arthritis opioid dependent GERD Hyperlipidemia Sleep apnea uses CPAP machine Plan Cardiology consultation Consultation with gastroenterology
[2019-10-15] MEDS: PANTOPRAZOLE 40 MG/10 ML VIAL IVP SCH (17:40)
[2019-10-15] MEDS: HYDROcodone/APAP 10-325MG 1 EACH TAB PO PRN (18:23)
[2019-10-15] MEDS: MELATONIN 5 MG TABLET PO SCH (20:55)
[2019-10-15] MEDS: PREGABALIN 25 MG CAP PO SCH (20:56)
[2019-10-15] MEDS: busPIRone HCl 10 MG TAB PO SCH (20:56)
[2019-10-15] MEDS: DULoxetine HCL 60 MG CAPSULE.DR PO SCH (20:56)
[2019-10-15] MEDS: MIRTAZAPINE 45 MG TABLET PO SCH (20:57)
[2019-10-15] MEDS: LATANOPROST 0.005% OPHTH DROPS 2.5 ML BTL BOTH EYES SCH (22:37)
[2019-10-15] MEDS: DORZOLAMIDE-TIMOLOL 2.23%/0.68 10ML BTL BOTH EYES SCH (22:37)
[2019-10-16] MEDS: HYDROcodone/APAP 10-325MG 1 EACH TAB PO PRN ×2 (01:32→09:52)
[2019-10-16] MEDS: MORPHINE SULFATE 2 MG/ML SYRINGE IVP PRN ×3 (02:41→21:34)
[2019-10-16 06:38] LABS: African American GFR (CKD) >90 (>60 ml/min/1.73 sqM); Anion Gap 8 mmol/L; Blood Urea Nitrogen 10 mg/dL (7-17); Calcium 8.9 mg/dL (8.4-10.2); Carbon Dioxide 24 mmol/L (22-30); Chloride 106 mmol/L (98-107); Cholesterol 245 mg/dL (<200); Glucose 93 mg/dL (74-99); HDL Cholesterol 42 mg/dL (40-60); LDL Cholesterol,Calculated 173 mg/dL (0-99); Non-African American GFR(CKD) 85 (>60 ml/min/1.73 sqM); Potassium 4.1 mmol/L (3.5-5.1); Sodium 138 mmol/L (137-145); Triglycerides 148 mg/dL (<150)
[2019-10-16] MEDS: PANTOPRAZOLE 40 MG/10 ML VIAL IVP SCH (08:36)
[2019-10-16 08:38] LABS: Basophils # (A) 0.1 k/uL (0-0.2); Basophils % (A) 2 %; Eosinophils # (A) 0.1 k/uL (0-0.7); Eosinophils % (A) 2 %; HCT 35.3 % (34.0-46.0); HGB 11.2 gm/dL (11.4-16.0); Lymphocytes # (A) 1.6 k/uL (1.0-4.8); Lymphocytes % (A) 34 %; MCH 27.3 pg (25.0-35.0); MCHC 31.7 g/dL (31.0-37.0); MCV 86.1 fL (80.0-100.0); Mean Platelet Volume 7.9; Monocytes # (A) 0.4 k/uL (0-1.0); Monocytes % (A) 8 %; Neutrophils # (A) 2.5 k/uL (1.3-7.7); Neutrophils % (A) 52 %; Platelet Count 190 k/uL (150-450); RBC 4.11 m/uL (3.80-5.40); RDW 14.1 % (11.5-15.5); WBC 4.9 k/uL (3.8-10.6)
[2019-10-16] MEDS ORDERED: ASPIRIN 325 MG TAB PO SCH (09:00)
[2019-10-16] MEDS: DORZOLAMIDE-TIMOLOL 2.23%/0.68 10ML BTL BOTH EYES SCH ×2 (09:54→21:27)
--- NOTE | 2019-10-16 10:10 | P.CRDCN ---
History of Present Illness History of present illness: HISTORY OF PRESENTING ILLNESS This is a pleasant 79-year-old -[place] female medical history significant for for CVA 2, dyslipidemia, gastroesophageal reflux disease, rheumatoid arthritis, obstructive sleep apnea and fibromyalgia she also has a history of diverticulitis over 15 years ago. 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 She denies prior history of coronary artery disease. We have been asked to see in consultation for chest pain. She states she has been experiencing poor appetite, diarrhea, nausea and significant abdominal pain for the last 4-5 days. Then yesterday she started experiencing a heaviness in her chest like someone was sitting on her chest. This occurred while she was laying down in bed resting. She felt some associated dizziness, ongoing nausea, shortness of breath and diaphoresis. This lasted for only 20 minutes and subsided on its own. She has not had any further pain in her chest however continues to have significant pain in the left side of her abdomen. DIAGNOSTICS EKG reveals sinus mechanism with no acute ST or T-wave abnormalities. Chest xray and KUB both negative for an acute process. Laboratory reviewed, CBC unremarkable, sodium 138, potassium 4.1, creatinine 0.67, cardiac enzymes negative 3, LDL 173. Current cardiac medications include aspirin 81 mg 3 times a day. REVIEW OF SYSTEMS At the time of my exam: CONSTITUTIONAL: Denies fever or chills. CARDIOVASCULAR: Denies chest pain, shortness of breath, orthopnea, PND or palpitations. RESPIRATORY: Denies cough. GASTROINTESTINAL: Denies abdominal pain, diarrhea, constipation, nausea or vomiting. MUSCULOSKELETAL: Denies myalgias. NEUROLOGIC: Denies numbness, tingling or weakness. ENDOCRINE: Denies fatigue, weight change, polydipsia or polyurina. GENITOURINARY: Denies burning, hematuria or urgency with micturation. HEMATOLOGIC: Denies history of anemia or bleeding. PHYSICAL EXAMINATION Blood pressure 135/80 heart rate 77 afebrile and maintaining oxygen saturation on room air. CONSTITUTIONAL: No apparent distress. HEENT: Head is normocephalic. Pupils are equal, round. Sclerae anicteric. Mucous membranes of the mouth are moist. No JVD. No carotid bruit. CHEST EXAMINATION: Lungs are clear to auscultation. No chest wall tenderness is noted on palpation or with deep breathing. HEART EXAMINATION: Regular rate and rhythm. S1, S2 heard. No murmurs, gallops or rub. ABDOMEN: Soft, mildly tender on the left side. Positive bowel sounds. EXTREMITIES: 2+ peripheral pulses, no lower extremity edema and no calf tenderness. NEUROLOGIC EXAMINATION: Patient is awake, alert and oriented x3. ASSESSMENT Chest pain, atypical for angina. An acute event has been ruled out. Abdominal pain, diarrhea with a history of diverticulitis CVA in the past x2 Dyslipidemia PLAN An acute event has been ruled out. Obtain 2D echocardiogram and doppler study to assess cardiac structure and function. Recommend further imaging of the abdomen. Initiate on atorvastatin 80 mg daily for lowering of LDL cholesterol less than 100 optimally. Ongoing management and treatment per primary and GI team. Thank you kindly for this consultation. Nurse Practitioner note has been reviewed, I agree with a documented findings and plan of care. Patient was seen and examined. Past Medical History Past Medical History: CVA/TIA, Eye Disorder, Fibromyalgia, GERD/Reflux, Hyperlipidemia, Memory Impairment, Musculoskeletal Disorder, Osteoarthritis (OA), Rheumatoid Arthritis (RA), Sleep Apnea/CPAP/BIPAP Additional Past Medical History / Comment(s): CHRONIC BACK PAIN, GLAUCOMA, CATARACT RIGHT EYE, HX OF ANEMIA, C-PAP MACHINE, HX OF CVA X2 IN 2009-DENIES ANY WEAKNESS OR PARALYSIS. USES WALKER. History of Any Multi-Drug Resistant Organisms: None Reported Past Surgical History: Back Surgery, Hysterectomy, Joint Replacement, Orthopedic Surgery Additional Past Surgical History / Comment(s): HX OF AUTO [id number] WITH MULTIPLE FACE AND HEAD SURGERYS TITANIUM IMPLANTS MOUTH,RECONSTRUCTED CHIN, ORBITS,FOREHEAD.SKULL? PLATE BUT PT NOT SURE., PAM KNEE REPLACEMENT, PAM NEWSOME REPLACEMENT. (3) BACK FUSIONS AND (2) LAMINECTOMYS. LEFT CATARACT SURGERY 08/19/14.BREAST BX-NEG, COLONOSCOPY.09/01/16 BACK SURGERY. Past Anesthesia/Blood Transfusion Reactions: No Reported Reaction Past Psychological History: Anxiety, Depression, Panic Disorder Smoking Status: Former smoker Past Alcohol Use History: None Reported Past Drug Use History: None Reported - Past Family History Brother(s) Family Medical History: Cancer Sister(s) Family Medical History: Cancer Medications and Allergies Home Medications Medication Instructions Recorded Confirmed Type Dorzolamide HCl/Timolol Maleat 1 drop BOTH EYES BID 03/02/10/15/19 History [Cosopt Eye Drops] Morphine Sulfate [Ms Contin] 30 mg PO Q8H 05/01/17 10/15/19 History tiZANidine HCL [Zanaflex] 4 mg PO BID PRN 05/01/17 10/15/19 History Pregabalin [Lyrica] 25 mg PO BID 06/07/18 10/15/19 History Aspirin EC [Ecotrin Low Dose] 81 mg PO TID 08/28/19 10/15/19 History Latanoprost/Pf [Latanoprost 0.005% 1 drop BOTH EYES HS 08/28/19 10/15/19 History Eye Drop] Hydrocodone/Acetaminophen [[place] 1 tab PO Q8H PRN 09/02/19 10/15/19 History 10-325] DULoxetine HCL [Cymbalta] 60 mg PO HS #30 capsule. 09/04/19 10/15/19 Rx Docusate [Colace] 100 mg PO BID 30 Days cap 09/04/19 10/15/19 Rx Melatonin 10 mg PO HS 30 Days tablet 09/04/19 10/15/19 Rx Mirtazapine [Remeron] 45 mg PO HS #30 tablet 09/04/19 10/15/19 Rx Sennosides-Docusate Sodium 1 each PO BID 30 Days tab 09/04/19 10/15/19 Rx [Senokot-S] Sodium Chloride 0.65% Nasal [Deep 2 spray NASAL TID PRN spray 09/04/19 10/15/19 Rx Sea (Saline)] busPIRone HCl [Buspar] 20 mg PO BID 30 Days tab 09/04/19 10/15/19 Rx Allergies Allergy/AdvReac Type Severity Reaction Status Date / Time codeine Allergy Itching Verified 10/15/19 12:20 tuberculin,PPD,multi-puncture Allergy Unknown Verified 10/15/19 12:20 ibuprofen [From Motrin] AdvReac gastrointestinal Verified 10/15/19 12:20 upset ketorolac tromethamine AdvReac makes her Verified 10/15/19 12:20 [From Toradol] feel funny tramadol HCl [From Ultram] AdvReac "upset Verified 10/15/19 12:20 stomach". Physical Exam Vitals: Vital Signs Temp Pulse Pulse Pulse Resp BP BP 10/16/19 07:47 98.5 F 77 18 01/15/20 03:32 98.0 F 82 17 133/79 10/16/19 03:13 75 17 10/16/19 00:00 82 17 10/15/19 23:39 97.4 F L 80 17 117/68 10/15/19 19:25 83 17 10/15/19 19:05 122 H 92/63 10/15/19 19:03 97.9 F 78 17 142/67 10/15/19 18:50 102 H 121/59 10/15/19 18:35 117 H 92/57 10/15/19 16:09 99.3 F 80 18 121/97 10/15/19 16:00 98.1 F 76 18 145/81 10/15/19 14:31 81 22 169/99 10/15/19 11:45 82 18 10/15/19 10:25 97.9 F 89 18 134/81 BP Pulse Ox 10/16/19 07:47 135/80 97 10/16/19 03:32 97 10/16/19 03:13 10/16/19 00:00 10/15/19 23:39 98 10/15/19 19:25 10/15/19 19:05 98 10/15/19 19:03 96 10/15/19 18:50 99 10/15/19 18:35 98 10/15/19 16:09 99 10/15/19 16:00 98 10/15/19 14:31 98 10/15/19 11:45 10/15/19 10:25 100 Intake and Output 10/15/19 10/16/19 10/16/19 22:59 06:59 14:59 Intake Total 480 240 Balance 480 240 Intake: Oral 480 240 Other: Voiding Method Toilet Toilet Weight 73.028 kg Results 10/16/19 06:00 10/16/19 06:00 Cardiac Enzymes 10/15/19 10/15/19 10/15/19 Range/Units 11:41 11:41 17:34 AST 22 (14-36) U/L Troponin I <0.012 <0.012 (0.000-0.034) ng/mL 10/15/19 Range/Units 23:37 AST (14-36) U/L Troponin I <0.012 (0.000-0.034) ng/mL Coagulation 10/15/19 Range/Units 11:41 PT 10.1 (9.0-12.0) sec APTT 24.6 (22.0-30.0) sec Lipids 10/16/19 Range/Units 06:00 Triglycerides 148 (<150) mg/dL Cholesterol 245 H (<200) mg/dL HDL Cholesterol 42 (40-60) mg/dL CBC 10/15/19 Range/Units 11:41 WBC 6.5 (3.8-10.6) k/uL RBC 4.14 (3.80-5.40) m/uL Hgb 11.4 (11.4-16.0) gm/dL Hct 34.9 (34.0-46.0) % Plt Count 236 (150-450) k/uL Comprehensive Metabolic Panel 10/15/19 10/16/19 Range/Units 11:41 06:00 Sodium 132 L 138 (137-145) mmol/L Potassium 4.2 4.1 (3.5-5.1) mmol/L Chloride 97 L 106 (98-107) mmol/L Carbon Dioxide 27 24 (22-30) mmol/L BUN 13 10 (7-17) mg/dL Creatinine 0.67 0.67 (0.52-1.04) mg/dL Glucose 106 H 93 (74-99) mg/dL Calcium 9.3 8.9 (8.4-10.2) mg/dL AST 22 (14-36) U/L ALT 10 (4-34) U/L Alkaline Phosphatase 84 (38-126) U/L Total Protein 8.1 (6.3-8.2) g/dL Albumin 4.5 (3.5-5.0) g/dL Current Medications Generic Name Dose Route Start Last Admin Trade Name Freq PRN Reason Stop Dose Admin Hydrocodone Bitart/Acetaminophen 1 each 10/15/19 17:26 10/16/19 01:32 [place] 10 PO 1 each Q8H PRN Administration Pain Buspirone HCl 20 mg 10/15/19 21:00 10/15/19 20:56 Buspar PO 20 mg BID FLAVIO Administration Dorzolamide/Timolol 1 drops 10/15/19 21:00 10/15/19 22:37 Cosopt BOTH EYES 1 drops BID FLAVIO Administration Duloxetine HCl 60 mg 10/15/19 21:00 10/15/19 20:56 Cymbalta PO 60 mg HS FLAVIO Administration Acetaminophen 1,000 mg/ IV 100 mls @ 400 mls/hr 10/15/19 16:48 10/15/19 17:39 Solution IVPB 10/16/19 12:14 400 mls/hr Q6HR PRN Administration Pain Promethazine HCl 6.25 mg/ 50.25 mls @ 200 mls/hr 10/15/19 16:49 Sodium Chloride IVPB Q6HR PRN Nausea Latanoprost 1 drops 10/15/19 21:00 10/15/19 22:37 Xalatan 0.005% BOTH EYES 1 drops HS FLAVIO Administration Melatonin 10 mg 10/15/19 21:00 10/15/19 20:55 Melatonin PO 10 mg HS FLAVIO Administration Mirtazapine 45 mg 10/15/19 21:00 10/15/19 20:57 Remeron PO 45 mg HS FLAVIO Administration Morphine Sulfate 2 mg 10/15/19 13:33 10/16/19 02:41 Morphine Sulfate (Inj) IVP 2 mg Q6H PRN Administration Pain Nitroglycerin 0.4 mg 10/15/19 13:30 Nitrostat SUBLINGUAL Q5M PRN Chest Pain Pantoprazole Sodium 40 mg 10/15/19 17:00 10/15/19 17:40 Protonix IVP 40 mg DAILY FLAVIO Administration Pregabalin 25 mg 10/15/19 21:00 10/15/19 20:56 Lyrica PO 25 mg BID FLAVIO Administration Sodium Chloride 2 spray 10/15/19 17:26 Deep Sea NASAL TID PRN Dry Nasal Passages Tizanidine HCl 4 mg 10/15/19 17:26 Zanaflex PO BID PRN Muscle Spasm Intake and Output 10/15/19 10/16/19 10/16/19 22:59 06:59 14:59 Intake Total 480 240 Balance 480 240 Intake: Oral 480 240 Other: Voiding Method Toilet Toilet Weight 73.028 kg 10/15/19 11:41 10/16/19 06:00
[2019-10-16] MEDS: ATORVASTATIN 80 MG TAB PO SCH (10:49)
[2019-10-16] MEDS: PREGABALIN 25 MG CAP PO SCH ×2 (10:49→21:29)
[2019-10-16] MEDS: busPIRone HCl 10 MG TAB PO SCH ×2 (10:49→21:28)
--- NOTE | 2019-10-16 11:06 | P.PN ---
Subjective Patient had evaluation by cardiology and approved for discharge. Patient needs evaluation by gastrology for abdominal pain. Stress test will be done on outpatient Objective - Vital Signs Vital signs: Vital Signs Temp 98.5 F 10/16/19 07:47 Pulse 77 10/16/19 07:47 Resp 18 10/16/19 07:47 BP 135/80 10/16/19 07:47 Pulse Ox 97 10/16/19 07:47 Intake & Output 10/15/19 10/16/19 10/16/19 18:59 06:59 18:59 Intake Total 720 Balance 720 Weight 73.028 kg Intake: Oral 720 Other: Voiding Method Toilet Toilet Toilet # Voids 1 - Constitutional General appearance: Present: mild distress - EENT Eyes: Present: PERRLA Ears: bilateral: normal - Neck Neck: Present: normal ROM - Respiratory Respiratory: bilateral: CTA - Cardiovascular Rhythm: regular - Gastrointestinal Gastrointestinal Comment(s): Tender to epigastric area of left lower abdomen General gastrointestinal: Present: soft, tenderness Localized gastrointestinal: tender: LLQ, epigastric periumbilical - Integumentary Integumentary: Present: normal - Neurologic Neurologic: Present: CNII-XII intact - Musculoskeletal Musculoskeletal: Present: gait normal - Psychiatric Psychiatric: Present: A&O x's 3, appropriate affect, intact judgment & insight - Labs CBC & Chem 7: 10/16/19 06:00 10/16/19 06:00 Labs: Abnormal Lab Results - Last 24 Hours (Table) 10/15/19 10/16/19 10/16/19 Range/Units 11:41 06:00 06:00 Hgb 11.2 L (11.4-16.0) gm/dL Sodium 132 L (137-145) mmol/L Chloride 97 L (98-107) mmol/L Glucose 106 H (74-99) mg/dL Cholesterol 245 H (<200) mg/dL LDL Cholesterol, Calc 173 H (0-99) mg/dL Assessment and Plan Plan: Assessment Chest pain troponins negative 3 atypical cleared by cardiology Abdominal pain epigastric left lower quadrant needs evaluation by gastroenterology history of bipolar Glaucoma History of CVA TIA Fibromyalgia GERD Hyperlipidemia Chronic back pain rheumatoid arthritis opioid dependent Sleep apnea uses CPAP machine Vomiting diarrhea Plan CT abdomen ordered Continue consultation with gastroenterology Stress test after discharge
--- NOTE | 2019-10-16 11:34 | CT ---
EXAMINATION TYPE: CT abdomen pelvis w con DATE OF EXAM: 10/16/2019 HISTORY: generalized abdominal pain CT DLP: 935.2mGycm Automated Exposure Control for Dose Reduction was Utilized. CONTRAST: CT scan of the abdomen and pelvis is performed without oral but with IV Contrast, patient injected wi th 100 mL of Isovue 300. COMPARISON: CT abdomen and pelvis June 07, 2018 and older CTs FINDINGS: LUNG BASES: Some dependent atelectasis both bases.. LIVER/GB: Scattered hypodense lesions throughout the liver are felt to reflect simple thin-walled cys t but majority are subcentimeter in size. Gallbladder has distended margin similar to prior without s urrounding inflammatory change. PANCREAS: Mild to moderate generalized atrophy. SPLEEN: No significant abnormality is seen. ADRENALS: No significant abnormality is seen. KIDNEYS: Symmetric cortical medullary uptake and excretion with some slightly more prominent parapelv ic cysts left kidney centrally. No hydronephrosis bilaterally.. BOWEL: Evaluation bowel suboptimal secondary to lack of enteric contrast. There are diverticula in th e sigmoid colon without convincing CT evidence for acute diverticulitis. There is no suspicious small or large bowel dilatation. UTERUS/ADNEXA: Uterus is surgically absent or markedly atrophic. A few scattered pelvic phlebolith bi laterally. There is 3.2 cm low dense right upper pelvic lesion redemonstrated axial image 48 not sign ificantly changed from prior study. This is abnormal finding in postmenopausal female but stability s uggests benign etiology. Correlate clinically. LYMPH NODES: No greater than 1cm abdominal or pelvic lymph nodes are appreciated. OSSEOUS STRUCTURES: Extensive postsurgical change to the lower lumbar spine redemonstrated this cause s streak artifact somewhat limiting evaluation of mid abdominal structures. Posterior interpedicular rods and screws transfix L2-S1 level bilaterally. Metallic disc material noted at L3-L4 and L4-L5 lev els. There is moderate disc space narrowing and severe anterior spurring with sclerosis L1-L2 level. Alignment is stable and straightened with slight scoliotic curvature. Posterior decompression redemon strated. OTHER: No significant additional abnormality is seen. IMPRESSION: No new or acute finding is seen to account for patient's clinical symptoms.
[2019-10-16] MEDS: tiZANidine 4 MG TAB PO PRN ×2 (12:31→22:06)
--- NOTE | 2019-10-16 15:00 | ECHOF ---
Referral Reason:cp MEASUREMENTS -------- HEIGHT: 167.6 cm WEIGHT: 73.0 kg BP: 135/80 RVIDd: 3.4 cm (< 3.3) IVSd: 1.3 cm (0.6 - 1.1) LVIDd: 3.2 cm (3.9 - 5.3) LVPWd: 1.3 cm (0.6 - 1.1) IVSs: 1.8 cm LVIDs: 2.0 cm LVPWs: 1.5 cm LA Diam: 3.4 cm (2.7 - 3.8) Ao Diam: 3.2 cm (2.0 - 3.7) AV Cusp: 1.9 cm (1.5 - 2.6) MV EXCURSION: 8.829 mm (> 18.000) MV EF SLOPE: 33 mm/s (70 - 150) EPSS: 0.7 cm MV E Paresh: 0.59 m/s MV DecT: 208 ms MV A Paresh: 0.74 m/s MV E/A Ratio: 0.79 RAP: 5.00 mmHg RVSP: 29.49 mmHg FINDINGS -------- Sinus rhythm. This was a technically adequate study. The left ventricular size is normal. There is moderate concentric left ventricular hypertrophy. O verall left ventricular systolic function is normal with, an EF between 60 - 65 %. The right ventricle is mildly enlarged. The left atrial size is normal. The right atrium is normal in size. Interatrial and interventricular septum intact. The aortic valve is trileaflet and appears structurally normal. There is mild aortic valve sclerosi s. There is trace to mild mitral regurgitation. Mild tricuspid regurgitation present. Right ventricular systolic pressure is normal at < 35 mmHg. Trace/mild (physiologic) pulmonic regurgitation. The aortic root size is normal. Normal inferior vena cava with normal inspiratory collapse consistent with estimated right atrial pre ssure of 5 mmHg. The inferior vena cava is mildly dilated. There is no pericardial effusion. CONCLUSIONS -------- 1. Sinus rhythm. 2. This was a technically adequate study. 3. The left ventricular size is normal. 4. Overall left ventricular systolic function is normal with, an EF between 60 - 65 %. 5. The right ventricle is mildly enlarged. 6. The left atrial size is normal. 7. The right atrium is normal in size. 8. Interatrial and interventricular septum intact. 9. The aortic valve is trileaflet and appears structurally normal. 10. There is mild aortic valve sclerosis. 11. There is trace to mild mitral regurgitation. 12. Mild tricuspid regurgitation present. 13. Right ventricular systolic pressure is normal at < 35 mmHg. 14. Trace/mild (physiologic) pulmonic regurgitation. 15. The aortic root size is normal. 16. Normal inferior vena cava with normal inspiratory collapse consistent with estimated right atrial pressure of 5 mmHg. 17. The inferior vena cava is mildly dilated. 18. There is no pericardial effusion. FIREFIGHTER TYPE ONE: MARIBEL Bermudez
[2019-10-16] MEDS: DICYCLOMINE 20 MG TAB PO PRN (16:58)
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
[2019-10-16] MEDS: MIRTAZAPINE 45 MG TABLET PO SCH (21:28)
[2019-10-16] MEDS: LATANOPROST 0.005% OPHTH DROPS 2.5 ML BTL BOTH EYES SCH (21:28)
[2019-10-16] MEDS: MELATONIN 5 MG TABLET PO SCH (21:29)
[2019-10-16] MEDS: DULoxetine HCL 60 MG CAPSULE.DR PO SCH (21:29)
[2019-10-17] MEDS: HYDROcodone/APAP 10-325MG 1 EACH TAB PO PRN (03:21)
[2019-10-17 07:44] VITALS: RESP 18
[2019-10-17] MEDS: PREGABALIN 25 MG CAP PO SCH (08:42)
[2019-10-17] MEDS: busPIRone HCl 10 MG TAB PO SCH (08:42)
[2019-10-17] MEDS: ATORVASTATIN 80 MG TAB PO SCH (08:42)
[2019-10-17] MEDS: DORZOLAMIDE-TIMOLOL 2.23%/0.68 10ML BTL BOTH EYES SCH (08:43)
[2019-10-17] MEDS: PANTOPRAZOLE 40 MG/10 ML VIAL IVP SCH (08:43)
[2019-10-17] MEDS: DICYCLOMINE 20 MG TAB PO PRN (10:00)
[2019-10-17] MEDS: tiZANidine 4 MG TAB PO PRN (10:00)
[2019-10-17 11:27] VITALS: BP 96/55; PULSE 72; TEMP 97.8
--- NOTE | 2019-10-17 11:46 | P.DS ---
Providers Date of admission: 10/15/19 13:29 Expected date of discharge: 10/17/19 Attending physician: Hill Mata Consults: 10/15/19 13:30 Consult Physician Routine Consulting Provider: [facility] Consult Reason/Comments: CP Do you want consulting provider notified?: Yes 10/15/19 16:50 Consult Physician Routine Consulting Provider: Lonnie Gurrola Consult Reason/Comments: gib Do you want consulting provider notified?: Yes Primary care physician: Hlil Mata Hospital Course: 79-year-old female presented emergency room with complaints of chest pain abdom inal pain patient was evaluated by cardiology and cleared for discharge she's to follow-up with them for stress test. Patient was evaluated by gastroenterology cleared for discharge started on Bentyl Assessment Atypical chest pain troponins negative 3 cleared by cardiology Abdominal pain evaluated by gastroenterology History of bipolar Glaucoma History of CVA/TIA Fibromyalgia GERD Hyperlipidemia Chronic back pain rheumatoid arthritis opioid dependent sees pain management Sleep apnea with CPAP machine Plan Follow-up with cardiology first stress test Follow-up with family physician Dr. Hill Mata Follow-up with gastroenterology regarding abdominal pain Patient Condition at Discharge: Fair Plan - Discharge Summary Discharge Rx Participant: Yes New Discharge Prescriptions: New Dicyclomine [Bentyl] 20 mg PO QID PRN #120 tab PRN Reason: Dyspepsia Atorvastatin [Lipitor] 80 mg PO DAILY #30 tab Pantoprazole [Protonix] 40 mg PO DAILY #30 tablet. Continue Dorzolamide HCl/Timolol Maleat [Cosopt Eye Drops] 1 drop BOTH EYES BID tiZANidine HCL [Zanaflex] 4 mg PO BID PRN PRN Reason: Muscle Spasm Morphine Sulfate [Ms Contin] 30 mg PO Q8H Pregabalin [Lyrica] 25 mg PO BID Aspirin EC [Ecotrin Low Dose] 81 mg PO TID Latanoprost/Pf [Latanoprost 0.005% Eye Drop] 1 drop BOTH EYES HS Hydrocodone/Acetaminophen [[place] 10-325] 1 tab PO Q8H PRN PRN Reason: Pain busPIRone HCl [Buspar] 20 mg PO BID 30 Days tab Docusate [Colace] 100 mg PO BID 30 Days cap DULoxetine HCL [Cymbalta] 60 mg PO HS #30 capsule. Sodium Chloride 0.65% Nasal [Deep Sea (Saline)] 2 spray NASAL TID PRN spray PRN Reason: Dry Nasal Passages Melatonin 10 mg PO HS 30 Days tablet Mirtazapine [Remeron] 45 mg PO HS #30 tablet Discontinued Sennosides-Docusate Sodium [Senokot-S] 1 each PO BID 30 Days tab Discharge Medication List Dorzolamide HCl/Timolol Maleat [Cosopt Eye Drops] 1 drop BOTH EYES BID 03/02/16 [History] Morphine Sulfate [Ms Contin] 30 mg PO Q8H 05/01/17 [History] tiZANidine HCL [Zanaflex] 4 mg PO BID PRN 05/01/17 [History] Pregabalin [Lyrica] 25 mg PO BID 06/07/18 [History] Aspirin EC [Ecotrin Low Dose] 81 mg PO TID 08/28/19 [History] Latanoprost/Pf [Latanoprost 0.005% Eye Drop] 1 drop BOTH EYES HS 08/28/19 [History] Hydrocodone/Acetaminophen [[place] 10-325] 1 tab PO Q8H PRN 09/02/19 [History] DULoxetine HCL [Cymbalta] 60 mg PO HS #30 capsule. 09/04/19 [Rx] Docusate [Colace] 100 mg PO BID 30 Days cap 09/04/19 [Rx] Melatonin 10 mg PO HS 30 Days tablet 09/04/19 [Rx] Mirtazapine [Remeron] 45 mg PO HS #30 tablet 09/04/19 [Rx] Sodium Chloride 0.65% Nasal [Deep Sea (Saline)] 2 spray NASAL TID PRN spray 09/04/19 [Rx] busPIRone HCl [Buspar] 20 mg PO BID 30 Days tab 09/04/19 [Rx] Atorvastatin [Lipitor] 80 mg PO DAILY #30 tab 10/17/19 [Rx] Dicyclomine [Bentyl] 20 mg PO QID PRN #120 tab 10/17/19 [Rx] Pantoprazole [Protonix] 40 mg PO DAILY #30 tablet. 10/17/19 [Rx] Follow up Appointment(s)/Referral(s): Hill Mata MD [Primary Care Provider] - 1-2 days
== END 2019-10-17 13:15 | disposition home or self-care (01) ==
LOC: EC 10:20 → 1SOBS 13:29
PROVIDERS: ADMIT Family Medicine; ATTEND Family Medicine
DX: R07.89 Other chest pain (principal); R10.13 Epigastric pain; R11.2 Nausea with vomiting, unspecified; R19.7 Diarrhea, unspecified; E78.5 Hyperlipidemia, unspecified; H40.9 Unspecified glaucoma; I25.10 Atherosclerotic heart disease of native coronary artery without angina pectoris; M79.7 Fibromyalgia; G89.29 Other chronic pain; M54.9 Dorsalgia, unspecified; H26.9 Unspecified cataract; Z86.73 Personal history of transient ischemic attack (TIA), and cerebral infarction without residual deficits; M06.9 Rheumatoid arthritis, unspecified; F11.20 Opioid dependence, uncomplicated; G47.33 Obstructive sleep apnea (adult) (pediatric); Z99.89 Dependence on other enabling machines and devices; K21.9 Gastro-esophageal reflux disease without esophagitis; Z87.19 Personal history of other diseases of the digestive system; F31.9 Bipolar disorder, unspecified; F41.9 Anxiety disorder, unspecified; F41.0 Panic disorder [episodic paroxysmal anxiety]; M19.90 Unspecified osteoarthritis, unspecified site; Z98.890 Other specified postprocedural states; E66.9 Obesity, unspecified; Z68.26 Body mass index [BMI] 26.0-26.9, adult; R41.3 Other amnesia; Z87.891 Personal history of nicotine dependence; Z90.710 Acquired absence of both cervix and uterus; Z96.653 Presence of artificial knee joint, bilateral; Z98.1 Arthrodesis status; Z98.42 Cataract extraction status, left eye; Z80.9 Family history of malignant neoplasm, unspecified; Z79.82 Long term (current) use of aspirin; Z79.891 Long term (current) use of opiate analgesic; Z79.899 Other long term (current) drug therapy; Z88.6 Allergy status to analgesic agent; Z88.5 Allergy status to narcotic agent
CPT/HCPCS: 93005 ×2; 96365; 96375 ×2; 96376 ×4; 96361; 99285; 36415; 93306; 83880; 80061; 80053; 80048; 82150; 83690; 83735; 84484; 85025 ×2; 85610; 85730; 82272; 81003; 71046; 74018; 74177; G0378 ×3; J2270 ×3; J2405; J0131; C9113 ×3; Q9967

== ENCOUNTER 2019-11-27 06:57 | Day surgery (SDC) | payer MEDICARE, OTHER ==
[2019-11-25 10:11] VITALS: BMI 26.6
[~2019-11-27 06:57] MED LIST: LACTATED RINGERS 1,000 ML IV SCH; LIDOCAINE 1% (10MG/ML) FOR IV START INTRADERMA PRN
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
[2019-11-27 08:11] VITALS: TEMP 98.9
[2019-11-27] MEDS ORDERED: MIDAZOLAM 2 MG/2 ML VIAL IV ONE (08:20)
[2019-11-27] MEDS ORDERED: PROPOFOL 10 MG/ML 20 ML VIAL IV ONE (09:21)
--- NOTE | 2019-11-27 09:29 | P.HPADDEND ---
H&P Addendum H&P Addendum Date: 11/27/19 Patient presents with additional history including pre-existing left lower quadrant abdominal pain ongoing for 2 years including diarrhea. She has seen multiple specialists. Likely consistent with diverticulosis in terms of presentation. We'll proceed with colonoscopy
[2019-11-27 09:55] VITALS: RESP 16
--- NOTE | 2019-11-27 09:58 | P.PCN ---
Date of Procedure: 11/27/19 Description of Procedure: PREOPERATIVE DIAGNOSIS: Colonoscopy screening Diverticulosis POSTOPERATIVE DIAGNOSIS: Colonoscopy screening Diverticulosis OPERATION: Colonoscopy to the ascending colon SURGEON: Ambreen Cm MD. ANESTHESIA: MAC. INDICATIONS: The patient is a 79-year-old female who presents for colonoscopy screening. Last colonoscopy within 5 years. Benefits and risks were described and informed consent was obtained. DESCRIPTION OF PROCEDURE: The patient had undergone Suprep. He had been brought into the operating room and laid in the left lateral decubitus position. After adequate intravenous sedation, the rectum was examined with 2% lidocaine jelly. No external hemorrhoids were encountered. The rectal tone was within normal limits. No lesions were palpated in the rectal vault. An Olympus colonoscope was advanced to the ascending colon with brief visualization of the ileocecal valve. The prep was excellent with clear visualization of the mucosal folds. The scope was removed with visualization of each mucosal fold. Scattered diverticulosis was encountered. Highly redundant sigmoid colon including a highly redundant splenic flexure was found prohibiting complete advancement into the base of the cecum. No colonic polyps were found. No evidence of focal colitis was found. Retroflexion of the scope demonstrated grade 1 internal hemorrhoids without active bleeding or inflammation. The colon was desufflated. The patient had tolerated the procedure well. Withdrawal time was over 6 minutes. FINDINGS: Aronchick preparation quality scale 1 (1-5) Internal hemorrhoids, grade 1 No external prolapsed hemorrhoids. No arteriovenous malformations. No adenomatous polyps. No focal colitis. Highly redundant sigmoid colon Highly redundant splenic flexure RECOMMENDATIONS: Lower endoscopy in 3 years, 2022 or Cologaurd
[2019-11-27 10:13] VITALS: BP 140/60; PULSE 79
== END 2019-11-27 10:30 | disposition home or self-care (01) ==
LOC: ORWHC2ENDO 06:57
PROVIDERS: ATTEND Surgery Plastic and Reconstructive Surgery
DX: K57.30 Diverticulosis of large intestine without perforation or abscess without bleeding (principal); Q43.8 Other specified congenital malformations of intestine; K64.0 First degree hemorrhoids; E78.5 Hyperlipidemia, unspecified; M79.7 Fibromyalgia; K21.9 Gastro-esophageal reflux disease without esophagitis; H40.9 Unspecified glaucoma; R41.3 Other amnesia; M19.90 Unspecified osteoarthritis, unspecified site; F31.9 Bipolar disorder, unspecified; F41.9 Anxiety disorder, unspecified; M06.9 Rheumatoid arthritis, unspecified; G47.30 Sleep apnea, unspecified; Z99.89 Dependence on other enabling machines and devices; H26.9 Unspecified cataract; Z86.73 Personal history of transient ischemic attack (TIA), and cerebral infarction without residual deficits; G89.29 Other chronic pain; M54.9 Dorsalgia, unspecified; Z90.710 Acquired absence of both cervix and uterus; Z96.653 Presence of artificial knee joint, bilateral; Z98.1 Arthrodesis status; Z98.42 Cataract extraction status, left eye; Z98.890 Other specified postprocedural states; Z87.891 Personal history of nicotine dependence; Z79.82 Long term (current) use of aspirin; Z79.891 Long term (current) use of opiate analgesic; Z79.899 Other long term (current) drug therapy; Z88.7 Allergy status to serum and vaccine; Z88.5 Allergy status to narcotic agent; Z88.6 Allergy status to analgesic agent
CPT/HCPCS: 45378; J2250; J2704

== ENCOUNTER → 2019-11-29 | Outpatient (CLI) | payer MEDICARE, OTHER ==
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
--- NOTE | 2019-12-02 10:56 | MM ---
Reason for exam: screening (asymptomatic). Last mammogram was performed 1 year and 8 months ago. History: Patient is postmenopausal. Took hormonal contraceptives for 1 month. Took estrogen for 20 years. Took progesterone for 20 years. Took tamoxifen for 20 years. Physical Findings: A clinical breast exam by your physician is recommended on an annual basis and results should be correlated with mammographic findings. MG 3D Screening Mammo W/Cad Bilateral CC and MLO view(s) were taken. Prior study comparison: April 12, 2018, mammogram, performed at [facility]. May 08, 2015, mammogram, performed at [facility]. The breast tissue is heterogeneously dense. This may lower the sensitivity of mammography. There is no discrete abnormality. ASSESSMENT: Negative, BI-RAD 1 RECOMMENDATION: Routine screening mammogram of both breasts in 1 year.
== END | disposition home or self-care (01) ==
LOC: RADMAMWWP 14:28
PROVIDERS: ATTEND Family Medicine
DX: Z12.31 Encounter for screening mammogram for malignant neoplasm of breast (principal); M81.0 Age-related osteoporosis without current pathological fracture; Z78.0 Asymptomatic menopausal state
CPT/HCPCS: 77063; 77067; 77080

== ENCOUNTER 2019-12-05 12:18 | Emergency (ER) | payer MEDICARE ==
[2019-12-05 12:31] VITALS: RESP 18
[2019-12-05] MEDS ORDERED: SODIUM CHLORIDE 0.9% 1,000 ML IV STA ×2 (13:20)
[2019-12-05] MEDS ORDERED: MORPHINE SULFATE 4 MG/ML SYRINGE IVP STA (13:22)
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
[2019-12-05 14:06] LABS: Basophils % (A) 0 %; Eosinophils # (A) 0.1 k/uL (0-0.7); Eosinophils % (A) 2 %; HCT 34.4 % (34.0-46.0); HGB 10.7 gm/dL (11.4-16.0); Hypochromasia Slight; Lymphocytes % (A) 20 %; MCH 26.5 pg (25.0-35.0); MCHC 31.1 g/dL (31.0-37.0); MCV 85.3 fL (80.0-100.0); Mean Platelet Volume 7.7; Monocytes # (A) 0.2 k/uL (0-1.0); Monocytes % (A) 5 %; Neutrophils # (A) 3.5 k/uL (1.3-7.7); Neutrophils % (A) 71 %; Platelet Count 248 k/uL (150-450); RBC 4.03 m/uL (3.80-5.40); RDW 13.6 % (11.5-15.5); WBC 4.9 k/uL (3.8-10.6)
[2019-12-05 14:15] LABS: Albumin 4.1 g/dL (3.5-5.0); Magnesium 2.4 mg/dL (1.6-2.3); Potassium 4.2 mmol/L (3.5-5.1); Total Bilirubin 0.6 mg/dL (0.2-1.3); Total Protein 7.3 g/dL (6.3-8.2)
[2019-12-05 14:24] LABS: Prothrombin Time 9.9 sec (9.0-12.0)
[2019-12-05 14:36] LABS: Partial Thromboplastin Time 19.1 sec (22.0-30.0)
--- NOTE | 2019-12-05 14:38 | XR ---
EXAMINATION TYPE: XR chest 2V DATE OF EXAM: 12/05/2019 COMPARISON: 10/15/2019 HISTORY: Chest pain and shortness of breath TECHNIQUE: Frontal and lateral views of the chest are obtained. FINDINGS: There is no focal air space opacity, pleural effusion, or pneumothorax seen. Platelike ate lectasis at the right lung base near the costophrenic angle. The cardiac silhouette size is within n ormal limits. The osseous structures are intact. IMPRESSION: Minimal right basilar platelike subsegmental atelectasis, otherwise no acute cardiopulmo nary process.
[2019-12-05] MEDS ORDERED: HYDROmorphone 1 MG/ML 1 ML SYRINGE IVP STA (15:17)
--- NOTE | 2019-12-05 16:06 | CT ---
EXAMINATION TYPE: CT abdomen pelvis w con DATE OF EXAM: 12/05/2019 COMPARISON: 10/16/2019 HISTORY: 79-year-old female abdominal pain and vomiting TECHNIQUE: Contiguous axial scanning of the abdomen and pelvis following administration of 100 ml Iso abigail 300 IV contrast. Delayed images through the kidneys and coronal/sagittal reconstructions perform ed. CT DLP: 999.3 mGycm Automated exposure control for dose reduction was used. FINDINGS: Heart normal size without pericardial effusion. Some strandy atelectasis in the lower lungs without p leural effusion. Numerous subcentimeter hypodensities within the liver are redemonstrated suggestive of benign cysts. Stable larger 1.6 cm cyst along the right side of the gallbladder fossa. Portal venous system is childers nt. Bile duct measures 6 mm, acceptable given patient's age. Portal venous system is patent. Gallbladder, right adrenal gland, spleen, atrophic pancreas show no gross abnormality. Mild nodularit y left adrenal gland is unchanged. No dilated small bowel, free fluid, or free air. Moderate circumferential wall thickening cecum and mid to lower ascending colon. Additional segments of circumferential wall thickening along the left side of the colon may relate to nondistention. Sigm oid diverticulosis without pericolonic inflammatory change. No mesenteric or retroperitoneal lymphadenopathy. Mild circumferential bladder wall thickening. Left-sided pelvic phlebolith. Redundant sigmoid colon. No abnormal fluid collection the pelvis or pelvic lymphadenopathy. Uterus surgically absent. There is a 2.9 cm cyst of the right ovary, not significant changed from recent prior. Further ultraso und characterization is recommended to determine subsequent follow-up in this postmenopausal female. Bones: Degenerative changes pubic symphysis and mild degenerative changes both hips. 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 Accelerated de generative disc disease above the fusion at L1-L2. IMPRESSION: 1. MODERATE CIRCUMFERENTIAL WALL THICKENING CECUM AND MID TO LOWER ASCENDING COLON SUGGESTS NONSPECIF IC COLITIS. ADDITIONAL SEGMENTS OF CIRCUMFERENTIAL WALL THICKENING WITHIN THE LEFT SIDE OF THE COLON COULD RELATE TO NONDISTENTION. DIRECT VISUALIZATION AFTER TREATMENT TO EXCLUDE UNDERLYING NEOPLASM. 2. 2.9 CM RIGHT OVARIAN CYST. IN A POSTMENOPAUSAL FEMALE . FURTHER ULTRASOUND CHARACTERIZATION IS RE COMMENDED TO DETERMINE SUBSEQUENT FOLLOW-UP. 3. SIGMOID DIVERTICULOSIS WITHOUT ACUTE DIVERTICULITIS.
[2019-12-05] MEDS ORDERED: AMOXIC-POT CLAV 875MG STARTER PACK 2 TAB BTL PO STA (17:08)
[2019-12-05] MEDS ORDERED: ACET/COD 300 MG/30 MG STARTER PACK 6 TAB BTL PO STA (17:14)
[2019-12-05 17:29] VITALS: BP 98/83; PULSE 89; TEMP 97.8
== END 2019-12-05 17:28 | disposition other institution (70) ==
LOC: EC 12:18
DX: K52.9 Noninfective gastroenteritis and colitis, unspecified (principal); N83.201 Unspecified ovarian cyst, right side; G89.29 Other chronic pain; R07.89 Other chest pain; M06.9 Rheumatoid arthritis, unspecified; M79.7 Fibromyalgia; H40.9 Unspecified glaucoma; K21.9 Gastro-esophageal reflux disease without esophagitis; G47.30 Sleep apnea, unspecified; Z79.891 Long term (current) use of opiate analgesic; Z79.82 Long term (current) use of aspirin; Z79.899 Other long term (current) drug therapy; Z88.5 Allergy status to narcotic agent; Z88.6 Allergy status to analgesic agent; Z96.653 Presence of artificial knee joint, bilateral; Z99.89 Dependence on other enabling machines and devices; Z86.73 Personal history of transient ischemic attack (TIA), and cerebral infarction without residual deficits; Z87.891 Personal history of nicotine dependence; Z87.19 Personal history of other diseases of the digestive system
CPT/HCPCS: 36415; 93005; 86900; 86901; 83880; 80053; 82150; 83690; 83735; 84484; 85025; 85610; 85730; 86850; 82272; 71046; 74177; 99285; 96374; 96375; 96361 ×3; J2270; J1170; Q9967

== ENCOUNTER 2019-12-08 19:14 | Observation (INO) | payer MEDICARE ==
[2019-12-08] MEDS ORDERED: HYDROmorphone 1 MG/ML 1 ML SYRINGE IVP STA (20:01)
[2019-12-08 20:03] LABS: ALT 21 U/L (4-34); AST 38 U/L (14-36); African American GFR (CKD) >90 (>60 ml/min/1.73 sqM); Albumin 4.3 g/dL (3.5-5.0); Alkaline Phosphatase 78 U/L (38-126); Anion Gap 8 mmol/L; Blood Urea Nitrogen 11 mg/dL (7-17); Calcium 8.9 mg/dL (8.4-10.2); Carbon Dioxide 26 mmol/L (22-30); Chloride 105 mmol/L (98-107); Glucose 88 mg/dL (74-99); Magnesium 2.2 mg/dL (1.6-2.3); Non-African American GFR(CKD) 79 (>60 ml/min/1.73 sqM); Potassium 3.6 mmol/L (3.5-5.1); Sodium 139 mmol/L (137-145); Total Bilirubin 0.2 mg/dL (0.2-1.3); Total Protein 7.7 g/dL (6.3-8.2)
[2019-12-08 20:07] LABS: INR 0.9 (<1.2); Partial Thromboplastin Time 23.2 sec (22.0-30.0); Prothrombin Time 9.8 sec (9.0-12.0)
--- NOTE | 2019-12-08 20:21 | XR ---
EXAMINATION TYPE: XR chest 2V DATE OF EXAM: 12/08/2019 COMPARISON: 12/05/2019 HISTORY: Chest pain TECHNIQUE: FINDINGS: Heart and mediastinum are normal. Lungs are clear. Diaphragm is normal. There are chest erin ds. Bony thorax appears normal. IMPRESSION: Normal chest. No change.
[2019-12-08 20:27] LABS: HCT 34.4 % (34.0-46.0); HGB 10.8 gm/dL (11.4-16.0); MCH 26.7 pg (25.0-35.0); MCHC 31.4 g/dL (31.0-37.0); MCV 85.1 fL (80.0-100.0); Mean Platelet Volume 7.4; Platelet Count 253 k/uL (150-450); RBC 4.04 m/uL (3.80-5.40); RDW 14.1 % (11.5-15.5); WBC 4.9 k/uL (3.8-10.6)
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
[2019-12-08 21:04] LABS: Eosinophils # (M) 0.05 k/uL (0-0.7); Lymphocytes # (M) 1.52 k/uL (1.0-4.8); Monocytes # (M) 0.29 k/uL (0-1.0); Neutrophils # (M) 3.04 k/uL (1.3-7.7); Neutrophils % (M) 62 %; Nucleated Red Blood Cells 0 /100 WBC (0-0); Total Cells Counted 100
[2019-12-08 21:05] LABS: Poikilocytosis (M) Present
[2019-12-08] MEDS ORDERED: NALOXONE 0.4 MG/ML 1 ML VIAL IV PRN (22:23)
[2019-12-08] MEDS ORDERED: ACETAMINOPHEN TAB 325 MG TAB PO PRN (22:23)
[2019-12-08] MEDS: MORPHINE SULFATE 4 MG/ML SYRINGE IV PRN (22:43)
[2019-12-08] MEDS: SODIUM CHLORIDE 0.9% 1,000 ML IV SCH (23:12)
[2019-12-09] MEDS: ONDANSETRON 4 MG/2 ML VIAL IVP PRN ×3 (02:56→21:00)
[2019-12-09] MEDS: MORPHINE SULFATE 4 MG/ML SYRINGE IV PRN ×5 (03:00→20:58)
[2019-12-09] MEDS: ATORVASTATIN 80 MG TAB PO SCH (08:53)
[2019-12-09] MEDS: PANTOPRAZOLE 40 MG TABLET PO SCH (08:54)
[2019-12-09] MEDS: PREGABALIN 25 MG CAP PO SCH ×2 (08:54→20:24)
[2019-12-09] MEDS: ASPIRIN 81 MG PO SCH (08:54)
[2019-12-09] MEDS ORDERED: ASPIRIN 81 MG PO SCH (09:00)
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
[2019-12-09] MEDS ORDERED: SODIUM CHLORIDE 0.65% NASAL SPRAY 44 ML BTL NASAL PRN (11:01)
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
[2019-12-09] MEDS: DICYCLOMINE 20 MG TAB PO SCH ×3 (13:42→20:23)
[2019-12-09] MEDS: DORZOLAMIDE-TIMOLOL 2.23%/0.68 10ML BTL BOTH EYES SCH ×2 (13:42→20:24)
[2019-12-09] MEDS: SODIUM CHLORIDE 0.9% 1,000 ML IV SCH ×2 (15:02→20:29)
[2019-12-09] MEDS ORDERED: metroNIDAZOLE-NS PMX 500 MG in SALINE 1 100ML.BAG IVPB SCH (16:00)
[2019-12-09] MEDS: tiZANidine 4 MG TAB PO SCH ×2 (16:47→20:24)
[2019-12-09] MEDS: PIPERACILLIN-TAZOBACTAM 3.375 GM in SODIUM CHLORIDE 0.9% 100 ML IVPB SCH ×2 (16:47→23:45)
[2019-12-09] MEDS: LATANOPROST 0.005% OPHTH DROPS 2.5 ML BTL BOTH EYES SCH (20:24)
[2019-12-09] MEDS: MIRTAZAPINE 45 MG TABLET PO SCH (20:24)
[2019-12-09] MEDS: busPIRone HCl 10 MG TAB PO SCH (20:24)
[2019-12-09] MEDS: DOCUSATE 100 MG CAP PO SCH (20:24)
[2019-12-09] MEDS: DULoxetine HCL 60 MG CAPSULE.DR PO SCH (20:24)
[2019-12-09] MEDS: metroNIDAZOLE-NS PMX 500 MG in SALINE 1 100ML.BAG IVPB SCH (22:07)
[2019-12-09] MEDS: MELATONIN 5 MG TABLET PO SCH (22:07)
[2019-12-10] MEDS: MORPHINE SULFATE 4 MG/ML SYRINGE IV PRN ×5 (01:22→20:33)
[2019-12-10] MEDS: SODIUM CHLORIDE 0.9% 1,000 ML IV SCH ×5 (03:39→23:57)
[2019-12-10] MEDS: metroNIDAZOLE-NS PMX 500 MG in SALINE 1 100ML.BAG IVPB SCH ×2 (08:43→14:27)
[2019-12-10] MEDS: ONDANSETRON 4 MG/2 ML VIAL IVP PRN ×2 (08:44→20:33)
[2019-12-10] MEDS: tiZANidine 4 MG TAB PO SCH ×3 (08:44→20:32)
[2019-12-10] MEDS: ASPIRIN 81 MG PO SCH (08:44)
[2019-12-10] MEDS: busPIRone HCl 10 MG TAB PO SCH ×2 (08:44→20:32)
[2019-12-10] MEDS: DOCUSATE 100 MG CAP PO SCH ×2 (08:44→20:32)
[2019-12-10] MEDS: ATORVASTATIN 80 MG TAB PO SCH (08:44)
[2019-12-10] MEDS: PANTOPRAZOLE 40 MG TABLET PO SCH (08:44)
[2019-12-10] MEDS: DICYCLOMINE 20 MG TAB PO SCH ×4 (08:45→20:32)
[2019-12-10] MEDS: PREGABALIN 25 MG CAP PO SCH ×2 (08:46→20:32)
[2019-12-10] MEDS: DORZOLAMIDE-TIMOLOL 2.23%/0.68 10ML BTL BOTH EYES SCH ×2 (10:16→20:31)
[2019-12-10] MEDS: PIPERACILLIN-TAZOBACTAM 3.375 GM in SODIUM CHLORIDE 0.9% 100 ML IVPB SCH ×3 (10:16→23:09)
--- NOTE | 2019-12-10 11:56 | P.PN ---
Subjective Patient is resting completely with eyes closed arouses easily to verbal command reports improved symptoms in pain stating overnight she was having more cramping but feels it has subsided in the past hour, she has been started on IV antibiotics per surgical consult's recommendations and feels that her symptoms are improving. Objective - Vital Signs Vital signs: Vital Signs Temp 97.4 F L 12/10/19 08:15 Pulse 71 12/10/19 08:15 Resp 12 12/10/19 08:15 BP 121/58 12/10/19 08:15 Pulse Ox 95 12/10/19 08:15 Intake & Output 12/09/19 12/10/19 12/10/19 18:59 06:59 18:59 Intake Total 100 Balance 100 Intake: Intake, IV Titration 100 Amount metroNIDAZOLE-NS PMX 500 100 mg In Saline 1 100ml.bag @ 100 mls/hr IVPB Q8H [facility] Rx#:[id number] Other: Voiding Method Toilet Toilet Toilet # Voids 3 - Constitutional General appearance: Present: mild distress - EENT Eyes: Present: normal appearance - Neck Neck: Present: normal ROM - Respiratory Respiratory: bilateral: CTA - Cardiovascular Rhythm: regular Heart sounds: normal: S1, S2 - Gastrointestinal General gastrointestinal: Present: normal bowel sounds, soft Localized gastrointestinal: tender: diffuse (Improving) - Integumentary Integumentary: Present: normal - Neurologic Neurologic: Present: CNII-XII intact - Psychiatric Psychiatric: Present: A&O x's 3, appropriate affect, intact judgment & insight - Labs CBC & Chem 7: 12/08/19 19:39 12/08/19 19:39 Assessment and Plan Plan: Assessment: Left-sided atypical chest pain resolved Chronic abdominal pain improving Unspecified colitis IV antibiotics initiated History of fibromyalgia History of GERD Plan: Continue IV antibiotics Continue surgical consult and recommendations with Dr. Verduzco
--- NOTE | 2019-12-10 13:24 | P.PN ---
<Dalia Park - Last Filed: 12/10/19 13:21> Subjective Progress Note Date: 12/10/19 CHIEF COMPLAINT: Abdominal pain, colitis HISTORY OF PRESENT ILLNESS: Patient examined this morning bedside. She continues to report left lower quadrant discomfort. However she reports more discomfort today in the supraumbilical region. Denies nausea or vomiting. Passing flatus. PHYSICAL EXAM: VITAL SIGNS: Reviewed GENERAL: Well-developed in no acute distress. HEENT: No sclera icterus. Extraocular movements grossly intact. Moist buccal mucosa. Head is atraumatic, normocephalic. Hears conversational speech. No nasal drainage. NECK: Supple without lymphadenopathy. CHEST: Non-labored respirations and equal bilateral excursions. CARDIOVASCULAR: Regular rate with regular rhythm. Palpable 2+ radial pulses. ABDOMEN: Soft. Nondistended. Tenderness with palpation of left lower quadrant and supraumbilical region. MUSCULOSKELETAL: No clubbing or cyanosis. NEUROLOGIC: No focal or lateralizing signs. Cranial nerves II through XII grossly intact. PSYCH: Appropriate affect. Alert and oriented to person, place and time. SKIN: Well perfused. Good skin turgor. ASSESSMENT: 1. Chest pain 2. Left lower quadrant abdominal pain, possible diverticulitis 3. Acute on chronic abdominal pain 4. Recent diagnosis of colitis PLAN: -Clear liquid diet -Recommend 3 days of inpatient IV antibiotics per Dr. Cm (Until ) -No surgical intervention recommended at this time Nurse practitioner note has been reviewed by physician. Signing provider agrees with the documented findings, assessment, and plan of care. Objective - Vital Signs Vital signs: Vital Signs Temp 97.4 F L 12/10/19 08:15 Pulse 71 12/10/19 08:15 Resp 12 12/10/19 08:15 BP 121/58 12/10/19 08:15 Pulse Ox 95 12/10/19 08:15 Intake & Output 12/09/19 12/10/19 12/10/19 18:59 06:59 18:59 Intake Total 100 Balance 100 Intake: Intake, IV Titration 100 Amount metroNIDAZOLE-NS PMX 500 100 mg In Saline 1 100ml.bag @ 100 mls/hr IVPB Q8H [facility] Rx#:[id number] Other: Voiding Method Toilet Toilet Toilet # Voids 3 - Labs CBC & Chem 7: 12/08/19 19:39 12/08/19 19:39 <SoilaAmbreen N - Last Filed: 12/11/19 19:39> Subjective She is doing moderately better this evening. She is tolerating diet. Her abdominal pain is now improved after antibiotics. May be discharged tomorrow with antibiotics as she clinically improves. Objective - Vital Signs Vital signs: Vital Signs Temp 97.9 F 12/11/19 07:05 Pulse 77 12/11/19 07:05 Resp 18 12/11/19 07:05 BP 123/75 12/11/19 07:05 Pulse Ox 97 12/11/19 07:05 Intake & Output 12/11/19 12/11/19 12/12/19 06:59 18:59 06:59 Intake Total 400 Balance 400 Intake: Intake, IV Titration 400 Amount Piperacillin-Tazobactam 3 100 .375 gm In Sodium Chloride 0.9% 100 ml @ 25 mls/hr IVPB Q8HR [facility] Rx# :[id number] Sodium Chloride 0.9% 1, 300 000 ml @ 75 mls/hr IV . [id number] [facility] Rx#:[id number] Other: Voiding Method Toilet Toilet - Labs CBC & Chem 7: 12/08/19 19:39 12/08/19 19:39
[2019-12-10] MEDS: LATANOPROST 0.005% OPHTH DROPS 2.5 ML BTL BOTH EYES SCH (20:31)
[2019-12-10] MEDS: MIRTAZAPINE 45 MG TABLET PO SCH (20:32)
[2019-12-10] MEDS: MELATONIN 5 MG TABLET PO SCH (20:32)
[2019-12-10] MEDS: DULoxetine HCL 60 MG CAPSULE.DR PO SCH (20:32)
[2019-12-10] MEDS: metroNIDAZOLE 500 MG TAB PO SCH (23:09)
[2019-12-10 23:31] VITALS: RESP 18
[2019-12-11] MEDS: MORPHINE SULFATE 4 MG/ML SYRINGE IV PRN ×2 (01:53→06:20)
[2019-12-11] MEDS: ONDANSETRON 4 MG/2 ML VIAL IVP PRN (06:23)
[2019-12-11 07:45] VITALS: BP 123/75; PULSE 77; TEMP 97.9
[2019-12-11] MEDS: ASPIRIN 81 MG PO SCH (08:56)
[2019-12-11] MEDS: busPIRone HCl 10 MG TAB PO SCH (08:56)
[2019-12-11] MEDS: ATORVASTATIN 80 MG TAB PO SCH (08:56)
[2019-12-11] MEDS: PREGABALIN 25 MG CAP PO SCH (08:56)
[2019-12-11] MEDS: metroNIDAZOLE 500 MG TAB PO SCH (08:56)
[2019-12-11] MEDS: PANTOPRAZOLE 40 MG TABLET PO SCH (08:56)
[2019-12-11] MEDS: DOCUSATE 100 MG CAP PO SCH (08:56)
[2019-12-11] MEDS: tiZANidine 4 MG TAB PO SCH (08:56)
[2019-12-11] MEDS: DICYCLOMINE 20 MG TAB PO SCH (08:56)
[2019-12-11] MEDS: PIPERACILLIN-TAZOBACTAM 3.375 GM in SODIUM CHLORIDE 0.9% 100 ML IVPB SCH (09:21)
--- NOTE | 2019-12-11 09:58 | P.PN ---
<Dalia Park A - Last Filed: 12/11/19 09:55> Subjective Progress Note Date: 12/11/19 CHIEF COMPLAINT: Abdominal pain, colitis HISTORY OF PRESENT ILLNESS: Patient examined this morning bedside. Patient reports improvement in her abdominal pain this morning. She has been tolerating diet. No nausea or vomiting. Vital signs stable. PHYSICAL EXAM: VITAL SIGNS: Reviewed GENERAL: Well-developed in no acute distress. HEENT: No sclera icterus. Extraocular movements grossly intact. Moist buccal mucosa. Head is atraumatic, normocephalic. Hears conversational speech. No nasal drainage. NECK: Supple without lymphadenopathy. CHEST: Non-labored respirations and equal bilateral excursions. CARDIOVASCULAR: Regular rate with regular rhythm. Palpable 2+ radial pulses. ABDOMEN: Soft. Nondistended. Mild tenderness with palpation of left lower quadrant and supraumbilical region. MUSCULOSKELETAL: No clubbing or cyanosis. NEUROLOGIC: No focal or lateralizing signs. Cranial nerves II through XII grossly intact. PSYCH: Appropriate affect. Alert and oriented to person, place and time. SKIN: Well perfused. Good skin turgor. ASSESSMENT: 1. Chest pain 2. Left lower quadrant abdominal pain, possible diverticulitis 3. Acute on chronic abdominal pain 4. Recent diagnosis of colitis PLAN: Continue full liquid diet Patient may slowly advance diet at home post discharge May be discharged home this afternoon per Dr. Cm Oral antibiotics sent to patients pharmacy Patient to follow with Dr. Cm outpatient Nurse practitioner note has been reviewed by physician. Signing provider agrees with the documented findings, assessment, and plan of care. Objective - Vital Signs Vital signs: Vital Signs Temp 97.9 F 12/11/19 07:05 Pulse 77 12/11/19 07:05 Resp 18 12/11/19 07:05 BP 123/75 12/11/19 07:05 Pulse Ox 97 12/11/19 07:05 Intake & Output 12/10/19 12/11/19 12/11/19 18:59 06:59 18:59 Intake Total 850 400 Balance 850 400 Intake: Intake, IV Titration 850 400 Amount Piperacillin-Tazobactam 3 100 100 .375 gm In Sodium Chloride 0.9% 100 ml @ 25 mls/hr IVPB Q8HR [facility] Rx# :[id number] Sodium Chloride 0.9% 1, 650 300 000 ml @ 75 mls/hr IV . [id number] [facility] Rx#:[id number] metroNIDAZOLE-NS PMX 500 100 mg In Saline 1 100ml.bag @ 100 mls/hr IVPB Q8H [facility] Rx#:[id number] Other: Voiding Method Toilet Toilet Toilet # Voids 2 - Labs CBC & Chem 7: 12/08/19 19:39 12/08/19 19:39 <Ambreen Cm - Last Filed: 12/11/19 19:40> Subjective Recommend antibiotics following discharge. Follow up as outpatient. Objective - Vital Signs Vital signs: Vital Signs Temp 97.9 F 12/11/19 07:05 Pulse 77 12/11/19 07:05 Resp 18 12/11/19 07:05 BP 123/75 12/11/19 07:05 Pulse Ox 97 12/11/19 07:05 Intake & Output 12/11/19 12/11/19 12/12/19 06:59 18:59 06:59 Intake Total 400 Balance 400 Intake: Intake, IV Titration 400 Amount Piperacillin-Tazobactam 3 100 .375 gm In Sodium Chloride 0.9% 100 ml @ 25 mls/hr IVPB Q8HR [facility] Rx# :[id number] Sodium Chloride 0.9% 1, 300 000 ml @ 75 mls/hr IV . [id number] [facility] Rx#:[id number] Other: Voiding Method Toilet Toilet - Labs CBC & Chem 7: 12/08/19 19:39 12/08/19 19:39
[2019-12-11] MEDS: DORZOLAMIDE-TIMOLOL 2.23%/0.68 10ML BTL BOTH EYES SCH (10:45)
--- NOTE | 2019-12-11 11:51 | P.DS ---
Providers Date of admission: 12/10/19 09:25 Expected date of discharge: 12/11/19 Attending physician: Hill Mata Consults: 12/08/19 22:24 Consult Physician Routine Consulting Provider: Alem Hazel Consult Reason/Comments: CP Do you want consulting provider notified?: Yes 12/09/19 08:21 Consult Physician Routine Consulting Provider: Ambreen Cm Consult Reason/Comments: abd pain, colitis Do you want consulting provider notified?: Yes Primary care physician: Hill Mata Hospital Course: Patient is 79-year-old female with chronic abdominal pain for 1-1/2-2 years had increased abdominal and chest pain with emesis presented to the emergency room for evaluation. She consultation with cardiology for the chest pain and a coronary event was ruled out diagnosis of chest pain is atypical for angina. She had surgical consultation with Dr. Verduzco, she was started on a course of IV antibiotics symptoms have improved. Dr. Cm states she is cleared to go home on oral antibiotics. She has started on a full liquid diet to advance as tolerated home she can be discharged home this afternoon if she tolerates. Assessment: Left sided chest pain atypical for angina resolved Acute on chronic abdominal pain improved Unspecified colitis History of fibromyalgia History of GERD Plan: Continue full liquid diet advance as tolerated May be discharged home on oral antibiotics as prescribed by Dr. Verduzco Follow-up with Dr. Hill Mata 1-2 days Follow-up Dr. Cm as instructed Patient Condition at Discharge: Stable Plan - Discharge Summary New Discharge Prescriptions: New Ciprofloxacin HCl [Cipro] 500 mg PO Q12HR #14 tab metroNIDAZOLE [Flagyl] 500 mg PO TID #21 tab Continue Dorzolamide HCl/Timolol Maleat [Cosopt Eye Drops] 1 drop BOTH EYES BID tiZANidine HCL [Zanaflex] 4 mg PO TID Morphine Sulfate [Ms Contin] 30 mg PO Q8H Pregabalin [Lyrica] 25 mg PO BID Aspirin EC [Ecotrin Low Dose] 81 mg PO TID Latanoprost/Pf [Latanoprost 0.005% Eye Drop] 1 drop BOTH EYES HS Hydrocodone/Acetaminophen [[place] 10-325] 1 tab PO Q8H PRN PRN Reason: Pain busPIRone HCl [Buspar] 20 mg PO BID 30 Days tab Docusate [Colace] 100 mg PO BID 30 Days cap DULoxetine HCL [Cymbalta] 60 mg PO HS #30 capsule. Mirtazapine [Remeron] 45 mg PO HS #30 tablet Atorvastatin [Lipitor] 80 mg PO DAILY #30 tab Pantoprazole [Protonix] 40 mg PO DAILY #30 tablet. Cannabidiol (Cbd) Extract [Epidiolex] 1 dose TOPICAL DAILY PRN PRN Reason: Pain Melatonin 40 mg PO HS Dicyclomine [Bentyl] 20 mg PO QID Discontinued Sodium Chloride 0.65% Nasal [[place] (Saline)] 2 spray NASAL TID PRN spray PRN Reason: Dry Nasal Passages Amoxic-Pot Clav 875-125Mg [Augmentin 875-125] 1 tab PO BID 3 Days #6 tab Discharge Medication List Dorzolamide HCl/Timolol Maleat [Cosopt Eye Drops] 1 drop BOTH EYES BID 03/02/16 [History] Morphine Sulfate [Ms Contin] 30 mg PO Q8H 05/01/17 [History] tiZANidine HCL [Zanaflex] 4 mg PO TID 05/01/17 [History] Pregabalin [Lyrica] 25 mg PO BID 06/07/18 [History] Aspirin EC [Ecotrin Low Dose] 81 mg PO TID 08/28/19 [History] Latanoprost/Pf [Latanoprost 0.005% Eye Drop] 1 drop BOTH EYES HS 08/28/19 [History] Hydrocodone/Acetaminophen [[place] 10-325] 1 tab PO Q8H PRN 09/02/19 [History] DULoxetine HCL [Cymbalta] 60 mg PO HS #30 capsule. 09/04/19 [Rx] Docusate [Colace] 100 mg PO BID 30 Days cap 09/04/19 [Rx] Mirtazapine [Remeron] 45 mg PO HS #30 tablet 09/04/19 [Rx] busPIRone HCl [Buspar] 20 mg PO BID 30 Days tab 09/04/19 [Rx] Atorvastatin [Lipitor] 80 mg PO DAILY #30 tab 10/17/19 [Rx] Pantoprazole [Protonix] 40 mg PO DAILY #30 tablet. 10/17/19 [Rx] Cannabidiol (Cbd) Extract [Epidiolex] 1 dose TOPICAL DAILY PRN 02/24/20 [History] Dicyclomine [Bentyl] 20 mg PO QID 12/09/19 [History] Melatonin 40 mg PO HS 12/09/19 [History] Ciprofloxacin HCl [Cipro] 500 mg PO Q12HR #14 tab 12/11/19 [Rx] metroNIDAZOLE [Flagyl] 500 mg PO TID #21 tab 12/11/19 [Rx] Follow up Appointment(s)/Referral(s): Hill Mata MD [Primary Care Provider] - 1-2 days Ambreen Cm MD [STAFF PHYSICIAN] - 1 Week Asa Spann MD [STAFF PHYSICIAN] - 3 Weeks
== END 2019-12-11 13:51 | disposition home or self-care (01) ==
LOC: EC 19:14 → 1SOBS 22:23 → OBSVTOIN 12-10 09:25 → INTOOBSV 12-10 09:25 → UNDODISIN 12-11 13:51
PROVIDERS: ADMIT Family Medicine; ATTEND Family Medicine
DX: R10.30 Lower abdominal pain, unspecified (principal); R07.89 Other chest pain; K52.9 Noninfective gastroenteritis and colitis, unspecified; F31.9 Bipolar disorder, unspecified; E78.5 Hyperlipidemia, unspecified; G89.29 Other chronic pain; G47.33 Obstructive sleep apnea (adult) (pediatric); M79.7 Fibromyalgia; K64.0 First degree hemorrhoids; K21.9 Gastro-esophageal reflux disease without esophagitis; M54.9 Dorsalgia, unspecified; H40.9 Unspecified glaucoma; D64.9 Anemia, unspecified; E66.9 Obesity, unspecified; F41.0 Panic disorder [episodic paroxysmal anxiety]; M06.9 Rheumatoid arthritis, unspecified; M19.90 Unspecified osteoarthritis, unspecified site; Z79.82 Long term (current) use of aspirin; Z79.891 Long term (current) use of opiate analgesic; Z79.899 Other long term (current) drug therapy; Z96.653 Presence of artificial knee joint, bilateral; Z98.1 Arthrodesis status; Z90.710 Acquired absence of both cervix and uterus; Z98.42 Cataract extraction status, left eye; Z86.73 Personal history of transient ischemic attack (TIA), and cerebral infarction without residual deficits; Z98.890 Other specified postprocedural states; Z88.6 Allergy status to analgesic agent; Z88.5 Allergy status to narcotic agent; Z88.7 Allergy status to serum and vaccine; Z80.9 Family history of malignant neoplasm, unspecified; Z87.891 Personal history of nicotine dependence; Z68.28 Body mass index [BMI] 28.0-28.9, adult
CPT/HCPCS: 96365; 96366 ×3; 96367; 96375 ×3; 96376 ×3; 99285; 36415; 93005; 80053; 83690; 83735; 84484 ×2; 85025; 85610; 85730; 71046; G0378 ×4; J2543 ×3; J2270 ×4; J2405 ×3; J1170; 96374

== ENCOUNTER 2020-03-02 05:42 | Observation (INO) | payer MEDICARE ==
[2020-03-02] MEDS ORDERED: MORPHINE SULFATE 4 MG/ML SYRINGE IV STA (06:24)
[2020-03-02] MEDS ORDERED: PANTOPRAZOLE 40 MG/10 ML VIAL IVP STA (06:24)
[2020-03-02] MEDS ORDERED: SODIUM CHLORIDE 0.9% 1,000 ML IV STA (06:24)
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
[2020-03-02 06:48] LABS: Basophils % (A) 0 %; Eosinophils # (A) 0.1 k/uL (0-0.7); Eosinophils % (A) 1 %; HCT 36.1 % (34.0-46.0); Lymphocytes # (A) 1.7 k/uL (1.0-4.8); Lymphocytes % (A) 28 %; MCH 27.4 pg (25.0-35.0); MCHC 33.2 g/dL (31.0-37.0); MCV 82.5 fL (80.0-100.0); Mean Platelet Volume 7.8; Monocytes # (A) 0.4 k/uL (0-1.0); Monocytes % (A) 7 %; Neutrophils # (A) 3.5 k/uL (1.3-7.7); Neutrophils % (A) 60 %; Platelet Count 225 k/uL (150-450); RBC 4.38 m/uL (3.80-5.40); RDW 14.5 % (11.5-15.5); WBC 5.9 k/uL (3.8-10.6)
[2020-03-02 07:02] LABS: Albumin 4.4 g/dL (3.5-5.0); Calcium 10.4 mg/dL (8.4-10.2); Potassium 3.8 mmol/L (3.5-5.1); Total Bilirubin 0.2 mg/dL (0.2-1.3); Total Protein 8.2 g/dL (6.3-8.2)
[2020-03-02] MEDS ORDERED: HYDROmorphone 0.5 MG/0.5 ML SYRINGE IVP STA (07:18)
--- NOTE | 2020-03-02 08:03 | CT ---
EXAMINATION TYPE: CT abdomen pelvis w con DATE OF EXAM: 03/02/2020 COMPARISON: 12/05/2019 HISTORY: 79-year-old female with abdominal pain TECHNIQUE: Contiguous axial scanning of the abdomen and pelvis following administration of 100 ml Iso abigail 300 IV contrast. Delayed images through the kidneys and coronal/sagittal reconstructions perform ed. CT DLP: 1087.5 mGycm Automated exposure control for dose reduction was used. FINDINGS: Heart normal size without pericardial effusion. Dependent atelectasis in the visualized lower lungs. Numerous subcentimeter hypodensities within the liver are unchanged suggestive of cysts. Portal venou s system is patent. No biliary ductal dilatation. Gallbladder, adrenal glands, right kidney, spleen, and atrophic pancreas show no gross abnormality. 1.7 cm parapelvic cyst left kidney. No dilated small bowel, free fluid, or free air. Some prominent fluid-filled small bowel loops throughout the abdomen and liquid stool within the cecu m. The previously seen wall thickening of the right side of the colon has improved in the interval. Sigmoid diverticulosis. Very subtle pericolonic fat stranding at the junction of the descending and s igmoid colon, axial image 46 through 48. No mesenteric or retroperitoneal lymphadenopathy. Mild circumferential bladder wall thickening. Uterus surgically absent. Pelvic phleboliths. Redemonstrated cyst within the right adnexa, currently measured at 3.4 cm versus 2.9 cm, previously. Suspected visualization of a small left ovary. Bones: Status post L1-S1 posterior and interbody fusion. Streak and beam hardening artifact from the orthopedic hardware causes some limitation in assessment. Degenerative disc disease above the fusion at T12-L1. IMPRESSION: 1. SIGMOID DIVERTICULOSIS. VERY SUBTLE PERICOLONIC FAT STRANDING AT THE JUNCTION OF THE DESCENDING AN D SIGMOID COLON MAY RELATE TO PROMINENT PERICOLONIC VESSELS OR MILD ACUTE DIVERTICULITIS. CLINICALLY CORRELATE. NO ABSCESS OR FREE AIR. 2. SOME SCATTERED PROMINENT FLUID-FILLED SMALL BOWEL LOOPS AND LIQUID STOOL IN THE RIGHT SIDE OF THE COLON MAY REFLECT A NONSPECIFIC ENTERITIS. 3. CIRCUMFERENTIAL BLADDER WALL THICKENING. CORRELATE TO EXCLUDE CYSTITIS. 4. REDEMONSTRATED RIGHT ADNEXAL CYST LIKELY OF OVARIAN ETIOLOGY CURRENTLY MEASURING 3.4 CM VERSUS 2.9 CM, PREVIOUSLY (3 MONTHS AGO). AGAIN, PELVIC ULTRASOUND RECOMMENDED TO ATTEMPT FURTHER CHARACTERIZAT ION AND TO DETERMINE SUBSEQUENT FOLLOW-UP.
[2020-03-02] MEDS ORDERED: PIPERACILLIN-TAZOBACTAM 3.375 GM in SODIUM CHLORIDE 0.9% 100 ML IVPB STA (08:16)
[2020-03-02] MEDS ORDERED: NALOXONE 0.4 MG/ML 1 ML VIAL IV PRN (08:38)
[2020-03-02 09:17] LABS: Appearance,Urine Clear (Clear); Bilirubin,Urine Negative (Negative); Blood,Urine Negative (Negative); Color,Urine Light Yellow; Glucose,Urine (UA) Negative (Negative); Ketones,Urine Negative (Negative); Leukocyte Esterase,Urine Negative (Negative); Nitrite,Urine Negative (Negative); PH, Urine 7.5 (5.0-8.0); Protein,Urine Negative (Negative); Specific Gravity,Urine 1.021 (1.001-1.035); Urobilinogen,Urine <2.0 mg/dL (<2.0)
--- NOTE | 2020-03-02 10:07 | US ---
EXAMINATION TYPE: US transvaginal DATE OF EXAM: 03/02/2020 COMPARISON: CT abdomen and pelvis earlier today and older CTs CLINICAL HISTORY: ovarian mass. right adnexa cyst, partial hysterectomy, LLQ pain TECHNIQUE: Transvaginal (TV). Date of LMP: unknown EXAM MEASUREMENTS: Uterus: Surgically absent Endometrial Stripe: Surgically absent Right Ovary: 3.0 x 3.0 x 3.8 cm Left Ovary: unable to visualize 1. Uterus: Surgically absent 2. Endometrium: Surgically absent 3. Right Ovary: little ovarian tissue seen, complex cystic area = 2.8 x 2.5 x 3.8cm 4. Left Ovary: Obscured by overlying bowel gas 5. Bilateral Adnexa: appears wnl Uterus redemonstrated is surgically absent. Persistent 3.8 x 2.8 x 2.5 cm right pelvic cyst or cystic lesion is not completely anechoic with increased through transmission and thin wall. This has been p resent on multiple prior studies and continuing to slowly increase in size. Advise lab and clinical f ollow-up to exclude cystic ovarian neoplasm. IMPRESSION: Source of patient's acute left lower quadrant pain not identified.
[2020-03-02] MEDS: HYDROmorphone 0.5 MG/0.5 ML SYRINGE IVP PRN ×3 (10:50→21:25)
[2020-03-02] MEDS: DICYCLOMINE 20 MG TAB PO SCH ×3 (11:56→21:05)
[2020-03-02] MEDS: PREGABALIN 25 MG CAP PO SCH ×2 (11:56→21:06)
[2020-03-02] MEDS: oxyCODONE-APAP 10-325MG 1 EACH TAB PO PRN (14:08)
--- NOTE | 2020-03-02 15:34 | HP ---
HISTORY AND PHYSICAL DATE OF SERVICE: 03/02/2020 CHIEF COMPLAINT: Abdominal pain. HISTORY OF PRESENT ILLNESS: This 79-year-old woman with a past medical history of CVA, TIA, history of fibromyalgia, GERD, hyperlipidemia, history of memory impairment, history of back surgery, being followed by Dr. Hill Mata in the outpatient setting, was complaining of severe abdominal pain. Dr. Cm has also seen the patient previously. The patient had a colonoscopy in November of this year by Dr. Cm which showed internal hemorrhoids and a highly redundant sigmoid colon and highly redundant splenic flexure, also. The patient was also seen in [facility]. Currently the patient is complaining of abdominal pain which is situated in the center part and subsequently in the left lower part. The patient came to [facility] and was admitted for evaluation and treatment. The CT scan of the abdomen showed multiple findings, including sigmoid diverticulosis and very subtle pericolonic fat stranding at the junction of the descending colon and sigmoid colon related to prominent pericolonic vessels or acute diverticulitis. Circumferential bladder wall thickening was also noted. Right adnexal cyst was also noted. The patient was admitted for further evaluation. There is no history of any fever, rigor or chills. No history of headache, loss of consciousness, seizures. PAST MEDICAL HISTORY: History of CVA, TIA, fibromyalgia, GERD, hyperlipidemia, history of DJD, history of chronic back pain. HOME MEDICATIONS: 1. Calcium 600 mg p.o. daily. 2. Prilosec 20 mg p.o. daily. 3. Vitamin D3 2000 daily. 4. Ecotrin 81 mg p.o. daily. 5. Percocet 1 tablet p.o. q.8 p.r.n. 6. MS Contin 30 mg p.o. q.8 p.r.n. 7. Zanaflex 4 mg p.o. t.i.d. 8. Lyrica 25 mg p.o. b.i.d. 9. Protonix 40 mg p.o. daily. 10.Remeron 45 mg at bedtime. 11.Melatonin 40 mg at bedtime. 12.Latanoprost 1 drop both eyes at bedtime. 13.Cosopt 1 drop both eyes b.i.d. 14.Colace 100 mg p.o. daily. 15.Bentyl 20 mg p.o. q.i.d. 16.Cymbalta 60 mg at bedtime. 17.BuSpar 20 mg p.o. b.i.d. 18.Lipitor 40 mg p.o. daily. ALLERGIES: CODEINE, TUBERCULIN, IBUPROFEN, TORADOL, ULTRAM. FAMILY HISTORY: History of cancer in the family. SOCIAL HISTORY: Occasional alcohol intake. Previous history of smoking. No history of substance abuse. REVIEW OF SYSTEMS: ENT: No diminished hearing. No diminished vision. CARDIOVASCULAR SYSTEM: No angina, palpitations. RESPIRATORY SYSTEM: No cough, hemoptysis. GI: As mentioned earlier. : No dysuria or retention. NERVOUS SYSTEM: No numbness, weakness. ALLERGY/IMMUNOLOGY: No asthma, hayfever. MUSCULOSKELETAL: As mentioned earlier. HEMATOLOGY/ONCOLOGY: No history of anemia. ENDOCRINE: No history of diabetes, hypothyroidism. CONSTITUTIONAL: As mentioned earlier. DERMATOLOGY: Negative. RHEUMATOLOGY: Negative. PSYCHIATRY: As mentioned earlier. PHYSICAL EXAMINATION: Patient alert and oriented x3. Pulse 88, blood pressure 170/90, respiration 14, temperature 98.4, pulse ox 99% on room air. HEENT: Conjunctivae normal. NECK: No jugular venous distention. CARDIOVASCULAR SYSTEM: S1, S2 muffled. RESPIRATORY SYSTEM: Breath sounds diminished at the bases. A few scattered rhonchi and crackles. ABDOMEN: Soft. Mild diffuse tenderness around the umbilicus as well as left lower quadrant present. No guarding. No rigidity. No mass palpable. LEGS: No edema. No swelling. NERVOUS SYSTEM: Higher functions as mentioned earlier. Moves all 4 limbs. No focal motor or sensory deficit. LYMPHATICS: No lymph node palpable in neck, axillae or groin. SKIN: No ulcer, rash, bleeding. JOINTS: No active deforming arthropathy. LABS: Lactic acid 2.1, calcium 10.4, present on admission. ASSESSMENT: 1. Acute on chronic abdominal pain with possible acute sigmoid diverticulitis. 2. Colonic diverticulosis. 3. Elevated lactic acid, present on admission. 4. Cerebrovascular accident, transient ischemic attack. 5. History of degenerative joint disease. 6. History of gastroesophageal reflux disease. 7. Hyperlipidemia. 8. Memory impairment. 9. History of sleep apnea. 10.History of chronic back pain. 11.Glaucoma. 12.Uses CPAP machine. 13.History of degenerative joint disease and back surgery. 14.History of anxiety, bipolar, depression, panic disorder. 15.History of nicotine dependence. 16.FULL CODE. RECOMMENDATIONS AND DISCUSSION: In this 79-year-old woman who presented with multiple complex medical issues, at this time I recommend to continue the current medications, continue with symptomatic treatment. Otherwise at this time I would recommend broad-spectrum IV antibiotics. Resume the home medications. Surgical consultation with Dr. Cm. Will closely monitor. Guarded prognosis. Further recommendations to follow. A copy of this dictation is being forwarded to Dr. Hill Mata, who is the primary physician. MMODL / IJN: [id number] /
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
[2020-03-02] MEDS: PIPERACILLIN-TAZOBACTAM 3.375 GM in SODIUM CHLORIDE 0.9% 100 ML IVPB SCH (16:04)
[2020-03-02] MEDS: tiZANidine 4 MG TAB PO SCH ×2 (16:04→21:05)
[2020-03-02] MEDS ORDERED: MIRTAZAPINE 45 MG TABLET PO SCH (21:00)
[2020-03-02] MEDS ORDERED: LATANOPROST 0.005% OPHTH DROPS 2.5 ML BTL BOTH EYES SCH (21:00)
[2020-03-02] MEDS ORDERED: MELATONIN 5 MG TABLET PO SCH (21:00)
[2020-03-02] MEDS ORDERED: DULoxetine HCL 60 MG CAPSULE.DR PO SCH (21:00)
[2020-03-02] MEDS: busPIRone HCl 10 MG TAB PO SCH (21:06)
[2020-03-02] MEDS: DORZOLAMIDE-TIMOLOL 2.23%/0.68 10ML BTL BOTH EYES SCH (21:52)
[2020-03-02] MEDS: MORPHINE SULFATE ER 30 MG TABLET PO PRN (22:39)
[2020-03-03] MEDS: PIPERACILLIN-TAZOBACTAM 3.375 GM in SODIUM CHLORIDE 0.9% 100 ML IVPB SCH ×2 (02:32→07:22)
[2020-03-03] MEDS: HYDROmorphone 0.5 MG/0.5 ML SYRINGE IVP PRN ×3 (03:07→10:48)
[2020-03-03] MEDS: oxyCODONE-APAP 10-325MG 1 EACH TAB PO PRN (04:47)
[2020-03-03] MEDS: busPIRone HCl 10 MG TAB PO SCH (07:24)
[2020-03-03] MEDS: PREGABALIN 25 MG CAP PO SCH (07:24)
[2020-03-03] MEDS: DICYCLOMINE 20 MG TAB PO SCH (07:24)
[2020-03-03] MEDS: DORZOLAMIDE-TIMOLOL 2.23%/0.68 10ML BTL BOTH EYES SCH (07:25)
[2020-03-03] MEDS: tiZANidine 4 MG TAB PO SCH (07:25)
[2020-03-03] MEDS ORDERED: PANTOPRAZOLE 40 MG TABLET PO SCH (07:30)
[2020-03-03 08:35] VITALS: BP 131/83; PULSE 82; RESP 14; TEMP 98.6
[2020-03-03] MEDS: MORPHINE SULFATE ER 30 MG TABLET PO PRN (08:39)
[2020-03-03] MEDS ORDERED: CHOLECALCIFEROL 1,000 UNIT TAB PO SCH (09:00)
[2020-03-03] MEDS ORDERED: DOCUSATE 100 MG CAP PO SCH (09:00)
[2020-03-03] MEDS ORDERED: CALCIUM CARBONATE 500 MG CHEWABLE PO SCH (09:00)
[2020-03-03] MEDS ORDERED: ASPIRIN 81 MG PO SCH (09:00)
[2020-03-03] MEDS ORDERED: ATORVASTATIN 40 MG TAB PO SCH (09:00)
--- NOTE | 2020-03-03 11:08 | P.PN ---
<[place] - Last Filed: 03/03/20 11:05> Subjective Progress Note Date: 03/03/20 CHIEF COMPLAINT: Abdominal pain HISTORY OF PRESENT ILLNESS: Patient examined this morning at the bedside with Dr. Cm. Patient states her pain is significantly improved. She is tolerating clear liquid diet. She states she feels well enough to go home today. PHYSICAL EXAM: VITALS: Reviewed CONSTITUTIONAL: Well developed and in no acute distress. EYES: Conjuctivae without sclera icterus. Pupils are equally round and reactive to light. Extraocular movements grossly intact. HEAD, EARS, NOSE, THROAT: Moist buccal mucosa. Head is atraumatic, normocephalic. Hears conversational speech. No nasal drainage NECK: No JV distention. No thyroidomegaly. RESPIRATORY: Non-labored respirations and equal bilateral excursions. No gross wheezes. CARDIOVASCULAR: Regular rate and rhythm. Extremities without moderate edema. Palpable 2+ radial pulses. ABDOMEN: Soft. Nondistended. No peritonitis. Nontender. MUSCULOSKELETAL: No clubbing cyanosis or edema SKIN: Well perfused with good skin turgor. NEUROLOGIC: Cranial nerves II through XII grossly intact. Sensation upper and extremities intact. No focal or lateralizing signs. PSYCH: Alert and oriented to person, place and time. Poor insight. ASSESSMENT: 1. Left lower quadrant abdominal pain 2. Diverticulosis 3. Fibromyalgia 4. Chronic diarrhea PLAN: -No surgical intervention recommended -Advance diet -Stable for discharge home today from a surgical standpoint. We will defer to internal medicine -Patient to follow-up outpatient with Dr. Cm. Nurse practitioner note has been reviewed by physician. Signing provider agrees with the documented findings, assessment, and plan of care. Objective - Vital Signs Vital signs: Vital Signs Temp 98.6 F 03/03/20 08:00 Pulse 82 03/03/20 08:00 Resp 14 03/03/20 08:00 BP 131/83 03/03/20 08:00 Pulse Ox 97 03/03/20 08:00 Intake & Output 03/02/20 03/03/20 03/03/20 18:59 06:59 18:59 Weight 80.739 kg Other: Voiding Method Toilet Toilet Toilet # Voids 2 1 2 - Labs CBC & Chem 7: 03/02/20 06:09 03/02/20 06:09 <Ambreen Cm N - Last Filed: 03/03/20 20:06> Subjective Patient seen and evaluated with nurse practitioner. Agree with above. Patient's abdominal pain significantly improved. Low fiber diet advised upon discharge. Follow-up as outpatient. Objective - Vital Signs Vital signs: Vital Signs Temp 98.6 F 03/03/20 08:00 Pulse 82 03/03/20 08:00 Resp 14 03/03/20 08:00 BP 131/83 03/03/20 08:00 Pulse Ox 97 03/03/20 08:00 Intake & Output 03/03/20 03/03/20 03/04/20 06:59 18:59 06:59 Other: Voiding Method Toilet Toilet # Voids 1 2 - Labs CBC & Chem 7: 03/02/20 06:09 03/02/20 06:09 Assessment and Plan (1) Diverticulitis Status: Acute Code(s): K57.92 - DVTRCLI OF INTEST, PART UNSP, W/O PERF OR ABSCESS W/O BLEED SNOMED Code(s): 067737185 (2) Abdominal pain Status: Acute Code(s): R10.9 - UNSPECIFIED ABDOMINAL PAIN SNOMED Code(s): 03023176 (3) Diarrhea Status: Acute Code(s): R19.7 - DIARRHEA, UNSPECIFIED SNOMED Code(s): 13470727 (4) Diverticulosis Status: Acute Code(s): K57.90 - DVRTCLOS OF INTEST, PART UNSP, W/O PERF OR ABSCESS W/O BLEED SNOMED Code(s): 852439565 (5) Elevated lactic acid level Status: Acute Code(s): R79.89 - OTHER SPECIFIED ABNORMAL FINDINGS OF BLOOD CHEMISTRY SNOMED Code(s): 9058353
--- NOTE | 2020-03-04 09:44 | P.DS ---
Providers Date of admission: 03/02/20 08:33 Expected date of discharge: 03/03/20 Attending physician: Gigi Byers Consults: 03/02/20 08:38 Consult Physician Stat Consulting Provider: Ambreen Cm Consult Reason/Comments: diverticulitis, r/o GI bleed Do you want consulting provider notified?: Yes Primary care physician: Hill Mata Hospital Course: Final Diagnosis Acute on chronic abdominal pain with possible acute sigmoid diverticulitis, diverticulitis ruled out Colonic diverticulosis Elevated lactic acid, present on admission, improved History of CVA/TIA History of DJD History of GERD Hyperlipidemia Memory impairment history of sleep apnea, uses a CPAP in the outpatient setting history of chronic back pain Glaucoma History of degenerative joint disease and back surgery History of anxiety, bipolar, depression, panic disorder History of nicotine dependence Full code Discharge disposition Patient is being discharged in a stable condition with guarded prognosis to home. Patient will follow-up with Dr. Mata in the outpatient setting. Patient will follow-up with Dr. Cm in the outpatient setting. Total time taken is 35 minutes. History of present illness This is a 79-year-old female who was recently admitted with left lower and center abdominal pain and was being closely monitored. Surgery was consulted and she was seen in the past with a history of abdominal pain and findings on CT. Dr. Verduzco evaluated the patient recommending outpatient follow-up after clearance from her primary care provider as well as pain management. Patient is tolerating diet and having bowel movements and states that her pain has improved. Patient states she would like to go home today. Currently no reports of chest pain, palpitations, or shortness of breath. Patient is afebrile. No reports of nausea or vomiting and patient is tolerating diet. On exam vital signs are stable. Temp is 98.6 F, pulse is 82, respirations are 14, blood pressure 131/83, oxygen saturation is 97% on room air. Cardio S1, S2 are present. Respiratory shows clear to auscultation. Abdomen is soft and mildly tender. Nervous system shows no focal deficits. Please refer to medication reconciliation sheet for a list of medications. Patient Condition at Discharge: Stable Plan - Discharge Summary Discharge Rx Participant: No New Discharge Prescriptions: Continue Dorzolamide HCl/Timolol Maleat [Cosopt Eye Drops] 1 drop BOTH EYES BID tiZANidine HCL [Zanaflex] 4 mg PO TID Morphine Sulfate [Ms Contin] 30 mg PO Q8H PRN PRN Reason: Pain Pregabalin [Lyrica] 25 mg PO BID Aspirin EC [Ecotrin Low Dose] 81 mg PO DAILY Latanoprost/Pf [Latanoprost 0.005% Eye Drop] 1 drop BOTH EYES HS busPIRone HCl [Buspar] 20 mg PO BID 30 Days tab DULoxetine HCL [Cymbalta] 60 mg PO HS #30 capsule. Mirtazapine [Remeron] 45 mg PO HS #30 tablet Pantoprazole [Protonix] 40 mg PO DAILY #30 tablet. Melatonin 40 mg PO HS Dicyclomine [Bentyl] 20 mg PO QID Atorvastatin Calcium [Lipitor] 40 mg PO DAILY Omeprazole Magnesium [PriLOSEC OTC] 20 mg PO DAILY Cholecalciferol [Vitamin D3 (25 Mcg = 1000 Iu)] 2,000 unit PO DAILY oxyCODONE-APAP 10-325MG [Percocet 10-325 mg] 1 tab PO Q8HR PRN PRN Reason: Pain Calcium Carbonate [Calcium] 600 mg PO DAILY Docusate [Colace] 100 mg PO DAILY Discharge Medication List Dorzolamide HCl/Timolol Maleat [Cosopt Eye Drops] 1 drop BOTH EYES BID 03/02/16 [History] Morphine Sulfate [Ms Contin] 30 mg PO Q8H PRN 05/01/17 [History] tiZANidine HCL [Zanaflex] 4 mg PO TID 05/01/17 [History] Pregabalin [Lyrica] 25 mg PO BID 06/07/18 [History] Aspirin EC [Ecotrin Low Dose] 81 mg PO DAILY 08/28/19 [History] Latanoprost/Pf [Latanoprost 0.005% Eye Drop] 1 drop BOTH EYES HS 08/28/19 [History] DULoxetine HCL [Cymbalta] 60 mg PO HS #30 capsule. 09/04/19 [Rx] Mirtazapine [Remeron] 45 mg PO HS #30 tablet 09/04/19 [Rx] busPIRone HCl [Buspar] 20 mg PO BID 30 Days tab 09/04/19 [Rx] Pantoprazole [Protonix] 40 mg PO DAILY #30 tablet. 10/17/19 [Rx] Dicyclomine [Bentyl] 20 mg PO QID 12/09/19 [History] Melatonin 40 mg PO HS 12/09/19 [History] Atorvastatin Calcium [Lipitor] 40 mg PO DAILY 03/02/20 [History] Calcium Carbonate [Calcium] 600 mg PO DAILY 03/02/20 [History] Cholecalciferol [Vitamin D3 (25 Mcg = 1000 Iu)] 2,000 unit PO DAILY 03/02/20 [History] Docusate [Colace] 100 mg PO DAILY 03/02/20 [History] Omeprazole Magnesium [PriLOSEC OTC] 20 mg PO DAILY 03/02/20 [History] oxyCODONE-APAP 10-325MG [Percocet 10-325 mg] 1 tab PO Q8HR PRN 03/02/20 [History] Follow up Appointment(s)/Referral(s): Hill Mata MD [Primary Care Provider] - 1-2 days Ambreen Cm MD [STAFF PHYSICIAN] - 1 Week Activity/Diet/Wound Care/Special Instructions: Activity Limited until follow-up Continue current diet Follow-up with surgery in the outpatient setting Follow up with primary care provider upon discharge Follow up with pain management Discharge Disposition: HOME SELF-CARE
== END 2020-03-03 12:35 | disposition home or self-care (01) ==
LOC: EC 05:42 → 1SOBS 08:33
PROVIDERS: ADMIT Internal Medicine; ATTEND Internal Medicine
DX: R10.32 Left lower quadrant pain (principal); K57.30 Diverticulosis of large intestine without perforation or abscess without bleeding; Z03.818 Encounter for observation for suspected exposure to other biological agents ruled out; M79.7 Fibromyalgia; E78.5 Hyperlipidemia, unspecified; K21.9 Gastro-esophageal reflux disease without esophagitis; Q43.8 Other specified congenital malformations of intestine; K64.8 Other hemorrhoids; G89.4 Chronic pain syndrome; M54.5 Low back pain; H40.9 Unspecified glaucoma; R41.3 Other amnesia; H26.9 Unspecified cataract; F41.0 Panic disorder [episodic paroxysmal anxiety]; F31.9 Bipolar disorder, unspecified; F41.9 Anxiety disorder, unspecified; M51.35 Other intervertebral disc degeneration, thoracolumbar region; M47.9 Spondylosis, unspecified; G47.30 Sleep apnea, unspecified; Z99.89 Dependence on other enabling machines and devices; R79.89 Other specified abnormal findings of blood chemistry; Z79.82 Long term (current) use of aspirin; Z79.891 Long term (current) use of opiate analgesic; Z79.899 Other long term (current) drug therapy; Z88.6 Allergy status to analgesic agent; Z88.5 Allergy status to narcotic agent; Z88.8 Allergy status to other drugs, medicaments and biological substances; Z90.710 Acquired absence of both cervix and uterus; Z86.73 Personal history of transient ischemic attack (TIA), and cerebral infarction without residual deficits; Z87.891 Personal history of nicotine dependence; Z96.653 Presence of artificial knee joint, bilateral; Z98.42 Cataract extraction status, left eye; Z98.1 Arthrodesis status; Z80.9 Family history of malignant neoplasm, unspecified
CPT/HCPCS: 96366 ×2; 96376 ×2; 96361; 96365; 96375; 99285; 36415; 80053; 83605; 83690; 85025; 82272; 81003; 76830; 74177; G0378 ×2; U0003; J2543 ×2; J2270; C9113; J1170 ×2; Q9967

== ENCOUNTER 2020-03-25 12:28 | Observation (INO) | payer MEDICARE ==
[2020-03-25] MEDS ORDERED: SODIUM CHLORIDE 0.9% 500 ML 500 ML IV STA (14:07)
[2020-03-25] MEDS ORDERED: HYDROmorphone 0.5 MG/0.5 ML SYRINGE IVP STA (14:07)
[2020-03-25] MEDS ORDERED: ONDANSETRON 4 MG/2 ML VIAL IVP STA (14:07)
[2020-03-25 14:36] LABS: Basophils % (A) 0 %; Eosinophils # (A) 0.1 k/uL (0-0.7); Eosinophils % (A) 2 %; HCT 40.1 % (34.0-46.0); HGB 12.5 gm/dL (11.4-16.0); Lymphocytes # (A) 1.3 k/uL (1.0-4.8); Lymphocytes % (A) 17 %; MCHC 31.2 g/dL (31.0-37.0); MCV 83.2 fL (80.0-100.0); Mean Platelet Volume 7.6; Monocytes # (A) 0.5 k/uL (0-1.0); Monocytes % (A) 6 %; Neutrophils # (A) 5.5 k/uL (1.3-7.7); Neutrophils % (A) 73 %; Platelet Count 241 k/uL (150-450); RBC 4.82 m/uL (3.80-5.40); RDW 14.8 % (11.5-15.5); WBC 7.5 k/uL (3.8-10.6)
[2020-03-25 14:43] LABS: Appearance,Urine Clear (Clear); Bilirubin,Urine Negative (Negative); Blood,Urine Negative (Negative); Color,Urine Yellow; Glucose,Urine (UA) Negative (Negative); Ketones,Urine Negative (Negative); Leukocyte Esterase,Urine Negative (Negative); Nitrite,Urine Negative (Negative); Protein,Urine Trace (Negative); Specific Gravity,Urine 1.027 (1.001-1.035); Urobilinogen,Urine <2.0 mg/dL (<2.0)
[2020-03-25 14:47] LABS: Albumin 5.1 g/dL (3.5-5.0); Calcium 10.3 mg/dL (8.4-10.2); Total Bilirubin 0.4 mg/dL (0.2-1.3); Total Protein 9.1 g/dL (6.3-8.2)
--- NOTE | 2020-03-25 15:39 | CT ---
EXAMINATION TYPE: CT abdomen pelvis w con DATE OF EXAM: 03/25/2020 COMPARISON: 03/02/2020 HISTORY: 79-year-old female with Abdominal pain. TECHNIQUE: Contiguous axial scanning of the abdomen and pelvis following administration of 100 ml Omn ipaque 300 IV contrast. Delayed images through the kidneys and coronal/sagittal reconstructions perf ormed. CT DLP: 1116 mGycm Automated exposure control for dose reduction was used. FINDINGS: Heart normal size without pericardial effusion. Some strandy scarring or atelectasis in the posterior lower lungs. No pleural effusion. Some generalized gastric fold thickening is noted Numerous subcentimeter hypodensities within the liver are unchanged suggestive of cysts. Portal venou s system is patent. No biliary ductal dilatation. Prominent folds within the gallbladder without abnormal distention or surrounding inflammation. Gallb ladder, adrenal glands, right kidney, spleen, and atrophic pancreas show no gross abnormality. 1.7 cm parapelvic cyst left kidney. No dilated small bowel, free fluid, or free air. The previously seen wall thickening of the right side of the colon has improved in the interval. Sigm oid diverticulosis. No pericolonic inflammatory change seen. However, there is mild circumferential w all thickening extending from the splenic flexure down to the lower descending colon, referred to cor onal image 33. No mesenteric or retroperitoneal lymphadenopathy. Similar minimal circumferential bladder wall thickening. Correlate to exclude cystitis. Uterus surgic ally absent. Pelvic phleboliths. Redemonstrated cyst within the right adnexa, currently measured at 3.4 cm versus 2.9 cm, previously o n 12/05/2019. Suspected visualization of a small left ovary. Bones: Postoperative changes of posterior fusion from L1 through S1 levels and interbody fusion at L2 -L3 and L3-L4. Degenerative grade 1 retrolisthesis above the fusion at T12-L1. IMPRESSION: 1. SIGMOID DIVERTICULOSIS WITHOUT EVIDENCE FOR ACUTE DIVERTICULITIS. HOWEVER, THERE IS CIRCUMFERENTIA L WALL THICKENING EXTENDING FROM THE SPLENIC FLEXURE OF THE COLON TO THE LOWER DESCENDING COLON. GINA ELATE FOR NONSPECIFIC INFECTIOUS OR INFLAMMATORY COLITIS. 2. GENERALIZED GASTRIC FOLD THICKENING. POSSIBLE GASTRITIS. CLINICALLY CORRELATE. 3. THE 3.4 CM RIGHT OVARIAN CYST REDEMONSTRATED. ON 10/16/2019, THIS MEASURED 2.9 CM WE NOTE THE ULTRA SOUND THAT WAS PERFORMED ON 03/02/2020. SIX-MONTH FOLLOW-UP ULTRASOUND RECOMMENDED FOR SURVEILLANCE.
[2020-03-25] MEDS ORDERED: NALOXONE 0.4 MG/ML 1 ML VIAL IV PRN (15:44)
[2020-03-25] MEDS ORDERED: ONDANSETRON 4 MG/2 ML VIAL IVP PRN (15:44)
[2020-03-25] MEDS ORDERED: ACETAMINOPHEN TAB 325 MG TAB PO PRN (15:44)
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
[2020-03-25] MEDS: HYDROmorphone 0.5 MG/0.5 ML SYRINGE IVP PRN ×3 (15:52→21:47)
[2020-03-25] MEDS: SODIUM CHLORIDE 0.9% 1,000 ML IV SCH (15:53)
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
[2020-03-25] MEDS ORDERED: MORPHINE SULFATE ER 30 MG TABLET PO PRN (23:45)
[2020-03-25] MEDS ORDERED: DICYCLOMINE 20 MG TAB PO PRN (23:45)
[2020-03-25] MEDS ORDERED: oxyCODONE-APAP 10-325MG 1 EACH TAB PO PRN (23:45)
[2020-03-26] MEDS: MIRTAZAPINE 45 MG TABLET PO SCH ×2 (00:58→21:24)
[2020-03-26] MEDS: HYDROmorphone 0.5 MG/0.5 ML SYRINGE IVP PRN ×7 (00:59→21:25)
[2020-03-26] MEDS: MELATONIN 5 MG TABLET PO SCH ×2 (01:00→21:23)
[2020-03-26] MEDS: metroNIDAZOLE-NS PMX 500 MG in SALINE 1 100ML.BAG IVPB SCH ×3 (01:02→15:29)
[2020-03-26] MEDS: LEVOFLOXACIN 500MG-D5W PMX 500 MG in DEXTROSE/WATER 1 100ML.BAG IVPB SCH (02:32)
[2020-03-26] MEDS: SODIUM CHLORIDE 0.9% 1,000 ML IV SCH ×2 (02:33→15:29)
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
[2020-03-26] MEDS: PREGABALIN 25 MG CAP PO SCH ×2 (07:23→21:23)
[2020-03-26] MEDS: DORZOLAMIDE-TIMOLOL 2.23%/0.68 10ML BTL BOTH EYES SCH ×2 (07:23→21:23)
[2020-03-26] MEDS: ASPIRIN 81 MG PO SCH (07:23)
[2020-03-26] MEDS: PANTOPRAZOLE 40 MG TABLET PO SCH (07:23)
[2020-03-26] MEDS: ATORVASTATIN 40 MG TAB PO SCH (07:23)
[2020-03-26] MEDS: CHOLECALCIFEROL 1,000 UNIT TAB PO SCH (07:23)
[2020-03-26] MEDS: busPIRone HCl 10 MG TAB PO SCH ×2 (07:24→21:24)
[2020-03-26] MEDS: tiZANidine 4 MG TAB PO SCH ×3 (07:24→23:10)
[2020-03-26 08:32] LABS: African American GFR (CKD) >90 (>60 ml/min/1.73 sqM); Anion Gap 7 mmol/L; Blood Urea Nitrogen 18 mg/dL (7-17); Calcium 9.6 mg/dL (8.4-10.2); Carbon Dioxide 25 mmol/L (22-30); Chloride 108 mmol/L (98-107); Glucose 111 mg/dL (74-99); Non-African American GFR(CKD) 80 (>60 ml/min/1.73 sqM); Potassium 4.1 mmol/L (3.5-5.1); Sodium 140 mmol/L (137-145)
[2020-03-26 08:39] LABS: Basophils % (A) 0 %; Eosinophils # (A) 0.1 k/uL (0-0.7); Eosinophils % (A) 1 %; HCT 35.1 % (34.0-46.0); Lymphocytes # (A) 1.3 k/uL (1.0-4.8); Lymphocytes % (A) 25 %; MCH 26.3 pg (25.0-35.0); MCHC 31.3 g/dL (31.0-37.0); Monocytes # (A) 0.5 k/uL (0-1.0); Monocytes % (A) 9 %; Neutrophils % (A) 61 %; Platelet Count 214 k/uL (150-450); RBC 4.18 m/uL (3.80-5.40); RDW 15.1 % (11.5-15.5)
--- NOTE | 2020-03-26 11:37 | P.PN ---
Subjective Progress Note Date: 03/26/20 CHIEF COMPLAINT: Colitis HISTORY OF PRESENT ILLNESS: Patient seen and examined at the bedside with Dr. Cm. Patient states her abdominal pain is improving. She is tolerating clear liquid diet. Vital signs are stable. Afebrile. PHYSICAL EXAM: VITAL SIGNS: Reviewed GENERAL: Well-developed in no acute distress. HEENT: No sclera icterus. Extraocular movements grossly intact. Moist buccal mucosa. Head is atraumatic, normocephalic. Hears conversational speech. No nasal drainage. NECK: Supple without lymphadenopathy. CHEST: Non-labored respirations and equal bilateral excursions. CARDIOVASCULAR: Regular rate with regular rhythm. Palpable 2+ radial pulses. ABDOMEN: Soft. Nondistended. Mild tenderness with palpation. MUSCULOSKELETAL: No clubbing or cyanosis. NEUROLOGIC: No focal or lateralizing signs. Cranial nerves II through XII grossly intact. PSYCH: Appropriate affect. Alert and oriented to person, place and time. SKIN: Well perfused. Good skin turgor. ASSESSMENT: 1. Colitis PLAN: -Continue diet as tolerated -GI consulted for evaluation. Await input and recommendations -No surgical intervention recommended Nurse practitioner note has been reviewed by physician. Signing provider agrees with the documented findings, assessment, and plan of care. Objective - Vital Signs Vital signs: Vital Signs Temp 98.5 F 03/26/20 07:19 Pulse 89 03/26/20 07:19 Resp 14 03/26/20 07:19 BP 120/66 03/26/20 07:19 Pulse Ox 94 L 03/26/20 07:19 Intake & Output 03/25/20 03/26/20 03/26/20 18:59 06:59 18:59 Intake Total 300 Balance 300 Weight 81.79 kg Intake: Oral 300 Other: Voiding Method Toilet Toilet # Voids 1 1 - Labs CBC & Chem 7: 03/26/20 07:31 03/26/20 07:31 Labs: Abnormal Lab Results - Last 24 Hours (Table) 03/25/20 03/25/20 03/26/20 Range/Units 14:24 14:24 07:31 Hgb 11.0 L (11.4-16.0) gm/dL Sodium 136 L (137-145) mmol/L Chloride (98-107) mmol/L BUN 31 H (7-17) mg/dL Glucose 113 H (74-99) mg/dL Calcium 10.3 H (8.4-10.2) mg/dL Total Protein 9.1 H (6.3-8.2) g/dL Albumin 5.1 H (3.5-5.0) g/dL Urine Protein Trace H (Negative) 03/26/20 Range/Units 07:31 Hgb (11.4-16.0) gm/dL Sodium (137-145) mmol/L Chloride 108 H (98-107) mmol/L BUN 18 H (7-17) mg/dL Glucose 111 H (74-99) mg/dL Calcium (8.4-10.2) mg/dL Total Protein (6.3-8.2) g/dL Albumin (3.5-5.0) g/dL Urine Protein (Negative)
[2020-03-26 15:30] VITALS: BMI 29.0
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
[2020-03-26] MEDS ORDERED: DULoxetine HCL 60 MG CAPSULE.DR PO SCH (21:00)
[2020-03-26] MEDS ORDERED: LATANOPROST 0.005% OPHTH DROPS 2.5 ML BTL BOTH EYES SCH (21:00)
[2020-03-27] MEDS: metroNIDAZOLE-NS PMX 500 MG in SALINE 1 100ML.BAG IVPB SCH ×2 (02:09→07:22)
[2020-03-27] MEDS: HYDROmorphone 0.5 MG/0.5 ML SYRINGE IVP PRN ×4 (02:15→10:15)
[2020-03-27] MEDS: LEVOFLOXACIN 500MG-D5W PMX 500 MG in DEXTROSE/WATER 1 100ML.BAG IVPB SCH (03:37)
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
[2020-03-27 07:22] VITALS: BP 112/69; PULSE 82; RESP 14; TEMP 98
[2020-03-27] MEDS: ASPIRIN 81 MG PO SCH (07:22)
[2020-03-27] MEDS: PANTOPRAZOLE 40 MG TABLET PO SCH (07:22)
[2020-03-27] MEDS: CHOLECALCIFEROL 1,000 UNIT TAB PO SCH (07:22)
[2020-03-27] MEDS: ATORVASTATIN 40 MG TAB PO SCH (07:22)
[2020-03-27] MEDS: DORZOLAMIDE-TIMOLOL 2.23%/0.68 10ML BTL BOTH EYES SCH (07:22)
[2020-03-27] MEDS: PREGABALIN 25 MG CAP PO SCH (07:22)
[2020-03-27] MEDS: tiZANidine 4 MG TAB PO SCH (07:23)
[2020-03-27] MEDS: busPIRone HCl 10 MG TAB PO SCH (07:23)
--- NOTE | 2020-03-27 09:49 | P.PN ---
Subjective Progress Note Date: 03/27/20 CHIEF COMPLAINT: Colitis HISTORY OF PRESENT ILLNESS: Patient seen and examined at the bedside with Dr. Cm. Patient continues to report abdominal pain. Tolerating diet. No nausea or vomiting. Vital signs are stable. Afebrile. PHYSICAL EXAM: VITAL SIGNS: Reviewed GENERAL: Well-developed in no acute distress. HEENT: No sclera icterus. Extraocular movements grossly intact. Moist buccal mucosa. Head is atraumatic, normocephalic. Hears conversational speech. No nasal drainage. NECK: Supple without lymphadenopathy. CHEST: Non-labored respirations and equal bilateral excursions. CARDIOVASCULAR: Regular rate with regular rhythm. Palpable 2+ radial pulses. ABDOMEN: Soft. Nondistended. Mild tenderness with palpation. MUSCULOSKELETAL: No clubbing or cyanosis. NEUROLOGIC: No focal or lateralizing signs. Cranial nerves II through XII grossly intact. PSYCH: Appropriate affect. Alert and oriented to person, place and time. SKIN: Well perfused. Good skin turgor. ASSESSMENT: 1. Colitis PLAN: -Continue diet as tolerated -GI consulted for evaluation. Appreciate input and recommendations -No surgical intervention recommended Nurse practitioner note has been reviewed by physician. Signing provider agrees with the documented findings, assessment, and plan of care. Objective - Vital Signs Vital signs: Vital Signs Temp 98 F 03/27/20 07:21 Pulse 82 03/27/20 07:21 Resp 14 03/27/20 07:21 BP 112/69 03/27/20 07:21 Pulse Ox 97 03/27/20 07:21 Intake & Output 03/26/20 03/27/20 03/27/20 18:59 06:59 18:59 Intake Total 420 500 200 Balance 420 500 200 Weight 81.79 kg Intake: Oral 420 500 200 Other: Voiding Method Toilet Toilet Toilet # Voids 2 1 2 # Bowel Movements 1 1 - Labs CBC & Chem 7: 03/26/20 07:31 03/26/20 07:31 Labs: Microbiology - Last 24 Hours (Table) 03/26/20 10:08 Stool Culture - Preliminary Stool
[2020-03-27] MEDS: SODIUM CHLORIDE 0.9% 1,000 ML IV SCH (10:16)
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
== END 2020-03-27 12:55 | disposition home or self-care (01) ==
LOC: EC 12:28 → 1SOBS 15:45 → INTOOBSV 15:45 → OBSVTOIN 15:45 → UNDODISIN 03-27 12:55
PROVIDERS: ADMIT Hospitalist; ATTEND Hospitalist
DX: R10.9 Unspecified abdominal pain (principal); E87.1 Hypo-osmolality and hyponatremia; F31.30 Bipolar disorder, current episode depressed, mild or moderate severity, unspecified; F06.8 Other specified mental disorders due to known physiological condition; M06.9 Rheumatoid arthritis, unspecified; D64.9 Anemia, unspecified; E78.5 Hyperlipidemia, unspecified; M79.7 Fibromyalgia; K21.9 Gastro-esophageal reflux disease without esophagitis; E83.52 Hypercalcemia; K57.30 Diverticulosis of large intestine without perforation or abscess without bleeding; M19.90 Unspecified osteoarthritis, unspecified site; G47.33 Obstructive sleep apnea (adult) (pediatric); F41.0 Panic disorder [episodic paroxysmal anxiety]; K59.9 Functional intestinal disorder, unspecified; N83.201 Unspecified ovarian cyst, right side; M54.9 Dorsalgia, unspecified; G89.29 Other chronic pain; H40.9 Unspecified glaucoma; H26.9 Unspecified cataract; Z79.82 Long term (current) use of aspirin; Z79.899 Other long term (current) drug therapy; Z87.891 Personal history of nicotine dependence; Z98.1 Arthrodesis status; Z87.828 Personal history of other (healed) physical injury and trauma; Z86.73 Personal history of transient ischemic attack (TIA), and cerebral infarction without residual deficits; Z90.710 Acquired absence of both cervix and uterus; Z96.653 Presence of artificial knee joint, bilateral; Z87.19 Personal history of other diseases of the digestive system; Z98.890 Other specified postprocedural states; Z96.7 Presence of other bone and tendon implants; Z88.6 Allergy status to analgesic agent; Z88.5 Allergy status to narcotic agent; Z88.7 Allergy status to serum and vaccine; Z80.9 Family history of malignant neoplasm, unspecified; Z03.818 Encounter for observation for suspected exposure to other biological agents ruled out
CPT/HCPCS: 96365; 96366 ×2; 96367; 96376 ×4; 96361; 96375; 99285; 36415; 93005; 97161; 80053; 80048; 85652; 82150; 83605; 83690; 85025 ×2; 85610; 85730; 86140; 81003; 83993; 87045; 83630; 87046; 74177; G0378 ×3; U0003; J2405; J1956 ×2; J1170 ×3; Q9967; 96374

== ENCOUNTER 2020-04-27 07:08 | Emergency (ER) | payer MEDICARE ==
[2020-04-27 07:16] VITALS: TEMP 98.3
[2020-04-27] MEDS ORDERED: SODIUM CHLORIDE 0.9% 500 ML 500 ML IV STA (07:25)
[2020-04-27] MEDS ORDERED: HYDROmorphone 1 MG/ML 1 ML SYRINGE IVP STA ×2 (07:32→10:17)
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
[2020-04-27 08:03] LABS: Basophils % (A) 0 %; Eosinophils # (A) 0.1 k/uL (0-0.7); Eosinophils % (A) 1 %; HGB 12.3 gm/dL (11.4-16.0); Lymphocytes # (A) 1.6 k/uL (1.0-4.8); Lymphocytes % (A) 20 %; MCH 26.7 pg (25.0-35.0); MCHC 32.3 g/dL (31.0-37.0); MCV 82.5 fL (80.0-100.0); Mean Platelet Volume 7.4; Monocytes # (A) 0.5 k/uL (0-1.0); Monocytes % (A) 7 %; Neutrophils # (A) 5.5 k/uL (1.3-7.7); Neutrophils % (A) 70 %; Platelet Count 261 k/uL (150-450); RDW 14.4 % (11.5-15.5); WBC 7.9 k/uL (3.8-10.6)
[2020-04-27 08:08] LABS: Partial Thromboplastin Time 24.1 sec (22.0-30.0); Prothrombin Time 10.2 sec (9.0-12.0)
[2020-04-27 08:14] LABS: Albumin 4.8 g/dL (3.5-5.0); Calcium 10.3 mg/dL (8.4-10.2); Potassium 3.6 mmol/L (3.5-5.1); Total Bilirubin 0.5 mg/dL (0.2-1.3); Total Protein 8.6 g/dL (6.3-8.2)
[2020-04-27 09:10] LABS: Appearance,Urine Clear (Clear); Bilirubin,Urine Negative (Negative); Blood,Urine Negative (Negative); Color,Urine Yellow; Glucose,Urine (UA) Negative (Negative); Ketones,Urine Negative (Negative); Leukocyte Esterase,Urine Negative (Negative); Nitrite,Urine Negative (Negative); Protein,Urine Negative (Negative); Specific Gravity,Urine 1.025 (1.001-1.035); Urobilinogen,Urine <2.0 mg/dL (<2.0)
--- NOTE | 2020-04-27 09:42 | CT ---
EXAMINATION TYPE: CT abdomen pelvis w con DATE OF EXAM: 04/27/2020 COMPARISON: 03/25/1930 HISTORY: LLQ pain with bowel changes. Patient has upcoming bowel resection scheduled. CT DLP: 1146.6 mGycm CONTRAST: CT scan of the abdomen and pelvis is performed without Oral Contrast and with IV Contrast, patient in jected with 100 mL of Isovue 300. FINDINGS: LUNG BASES-: No visible nodule. No infiltrate. LIVER/GB: No calcified gallstones. Small hepatic cysts noted. Biliary tree is of normal caliber. PANCREAS: No inflammation. No distinct mass. SPLEEN: No splenic enlargement. No lesion seen. ADRENALS: No nodule. No thickening. KIDNEYS/BLADDER: No hydronephrosis. No nephrolithiasis. No distinct renal mass. Urinary bladder g rossly unremarkable. BOWEL: Nonvisualization of the appendix. Mild distention of the cecum measuring 5.8 cm with possible bascule. Small bowel is of normal caliber. Sigmoid diverticulosis without diverticulitis. No evidence for free air or abscess. GENITAL ORGANS: Stable cystic or right ovary measuring 3.5 cm. LYMPH NODES: No greater than 1cm abdominal or pelvic lymph nodes are appreciated. AORTA: No significant abnormality. OSSEOUS STRUCTURES: Extensive postsurgical changes of the lumbar spine. OTHER: No significant additional abnormality is seen. IMPRESSION: 1. Mild distention of the cecum with possible mild cecal bascule.
[2020-04-27] MEDS ORDERED: ONDANSETRON 4 MG/2 ML VIAL IVP STA (10:21)
[2020-04-27 10:47] VITALS: BP 140/89; PULSE 81; RESP 16
[2020-04-27] MEDS ORDERED: ONDANSETRON 4 MG ODT STARTER PACK 2 TAB BTL PO STA (11:06)
== END 2020-04-27 11:15 | disposition home or self-care (01) ==
LOC: EC 07:08
DX: G89.4 Chronic pain syndrome (principal); R10.9 Unspecified abdominal pain; R11.10 Vomiting, unspecified; R19.7 Diarrhea, unspecified; K63.89 Other specified diseases of intestine; E78.5 Hyperlipidemia, unspecified; G47.30 Sleep apnea, unspecified; K21.9 Gastro-esophageal reflux disease without esophagitis; Z79.82 Long term (current) use of aspirin; Z79.899 Other long term (current) drug therapy; Z88.5 Allergy status to narcotic agent; Z88.6 Allergy status to analgesic agent; Z88.8 Allergy status to other drugs, medicaments and biological substances; Z86.73 Personal history of transient ischemic attack (TIA), and cerebral infarction without residual deficits; Z99.89 Dependence on other enabling machines and devices; Z90.710 Acquired absence of both cervix and uterus; Z96.653 Presence of artificial knee joint, bilateral
CPT/HCPCS: 99284; 96374; 96375; 96376; 36415; 93005; 80053; 83605; 83690; 85025; 85610; 85730; 81003; 74177; J2405; J1170; S0119; Q9967

== ENCOUNTER → 2020-05-04 | Outpatient (CLI) | payer MEDICARE ==
[2020-05-04 08:18] LABS: HCT 35.3 % (34.0-46.0); Hypochromasia Slight; MCH 26.8 pg (25.0-35.0); MCHC 31.1 g/dL (31.0-37.0); Platelet Count 207 k/uL (150-450); RBC 4.11 m/uL (3.80-5.40); WBC 3.7 k/uL (3.8-10.6)
[2020-05-04 08:41] LABS: ALT 18 U/L (4-34); AST 30 U/L (14-36); African American GFR (CKD) >90 (>60 ml/min/1.73 sqM); Albumin 4.3 g/dL (3.5-5.0); Alkaline Phosphatase 69 U/L (38-126); Anion Gap 8 mmol/L; Blood Urea Nitrogen 33 mg/dL (7-17); Calcium 8.8 mg/dL (8.4-10.2); Carbon Dioxide 31 mmol/L (22-30); Chloride 99 mmol/L (98-107); Glucose 111 mg/dL (74-99); Non-African American GFR(CKD) 79 (>60 ml/min/1.73 sqM); Potassium 4.9 mmol/L (3.5-5.1); Sodium 138 mmol/L (137-145); Total Bilirubin 0.3 mg/dL (0.2-1.3); Total Protein 7.7 g/dL (6.3-8.2)
== END | disposition home or self-care (01) ==
LOC: LABPAT 07:08
PROVIDERS: ATTEND Surgery Plastic and Reconstructive Surgery
DX: Z01.812 Encounter for preprocedural laboratory examination (principal)
CPT/HCPCS: 36415; 80053; 85027

== ENCOUNTER 2020-05-08 09:03 | Inpatient (IN) | payer MEDICARE ==
[2020-04-30 09:37] VITALS: BMI 28.7
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
[~2020-05-08 09:03] MED LIST changes: +ACETAMINOPHEN TAB 500 MG TAB PO ONE; +ALVIMOPAN 12 MG CAPSULE PO ONE; +Antibiotics per Pharmacy 1 EACH MISC MISCELLANE PRN; +DEXAMETHASONE SOD PHOSPHATE 10 MG/ML 1 ML VIAL IV ONE; +HEPARIN SODIUM,PORCINE 5,000 UNIT/ML 1 ML VIAL SQ ONE; -LACTATED RINGERS 1,000 ML IV SCH; +MIDAZOLAM 2 MG/2 ML VIAL IV PRN; +ONDANSETRON 4 MG/2 ML VIAL IVP ONE; +metroNIDAZOLE-NS PMX 500 MG in SALINE 1 100ML.BAG IVPB ONE
[2020-05-08] MEDS ORDERED: HEPARIN SODIUM,PORCINE 5,000 UNIT/ML 1 ML VIAL ONE (09:30)
[2020-05-08] MEDS ORDERED: ONDANSETRON 4 MG/2 ML VIAL ONE ×2 (09:30→11:53)
[2020-05-08] MEDS ORDERED: ACETAMINOPHEN TAB 500 MG TAB ONE (09:30)
[2020-05-08] MEDS: LACTATED RINGERS 1,000 ML IV SCH (09:49)
[2020-05-08 09:59] LABS: Basophils % (A) 1 %; Eosinophils # (A) 0.1 k/uL (0-0.7); Eosinophils % (A) 3 %; HCT 33.9 % (34.0-46.0); HGB 10.9 gm/dL (11.4-16.0); Lymphocytes # (A) 1.2 k/uL (1.0-4.8); Lymphocytes % (A) 24 %; MCHC 32.1 g/dL (31.0-37.0); Mean Platelet Volume 7.3; Monocytes # (A) 0.4 k/uL (0-1.0); Monocytes % (A) 9 %; Neutrophils # (A) 2.9 k/uL (1.3-7.7); Neutrophils % (A) 60 %; Platelet Count 171 k/uL (150-450); RBC 4.04 m/uL (3.80-5.40); WBC 4.8 k/uL (3.8-10.6)
[2020-05-08] MEDS ORDERED: MIDAZOLAM 2 MG/2 ML VIAL IVP ONE (10:00)
[2020-05-08 10:07] LABS: ALT 17 U/L (4-34); AST 37 U/L (14-36); African American GFR (CKD) >90 (>60 ml/min/1.73 sqM); Albumin 4.2 g/dL (3.5-5.0); Alkaline Phosphatase 69 U/L (38-126); Anion Gap 11 mmol/L; Blood Urea Nitrogen 18 mg/dL (7-17); Calcium 8.6 mg/dL (8.4-10.2); Carbon Dioxide 29 mmol/L (22-30); Chloride 98 mmol/L (98-107); Glucose 105 mg/dL (74-99); Non-African American GFR(CKD) 85 (>60 ml/min/1.73 sqM); Potassium 3.6 mmol/L (3.5-5.1); Sodium 138 mmol/L (137-145); Total Bilirubin 0.4 mg/dL (0.2-1.3); Total Protein 7.4 g/dL (6.3-8.2)
[2020-05-08] MEDS ORDERED: fentaNYL (PF) 50 MCG/ML 2 ML AMP IV ONE ×2 (10:50)
[2020-05-08] MEDS ORDERED: fentaNYL (PF) 50 MCG/ML 2 ML AMP ONE (11:53)
[2020-05-08] MEDS ORDERED: PROPOFOL 10 MG/ML 20 ML VIAL IV ONE (11:53)
[2020-05-08] MEDS ORDERED: MIDAZOLAM 2 MG/2 ML VIAL ONE (11:53)
[2020-05-08] MEDS ORDERED: ROCURONIUM BROMIDE 10 MG/ML 5 ML VIAL IV ONE (11:53)
[2020-05-08] MEDS ORDERED: HYDROmorphone (PF) 1 MG/ML ONE (11:53)
[2020-05-08] MEDS ORDERED: LIDOCAINE 1%-EPI 1:100,000 20 ML VIAL SQ ONE (12:50)
[2020-05-08] MEDS ORDERED: LACTATED RINGERS 1,000 ML IV ONE ×2 (12:54→14:41)
[2020-05-08] MEDS ORDERED: tiZANidine 4 MG TAB PO PRN (16:02)
[2020-05-08] MEDS ORDERED: METOCLOPRAMIDE 5 MG/ML 2 ML VIAL IVP PRN (16:05)
[2020-05-08] MEDS: HYDROmorphone 0.5 MG/0.5 ML SYRINGE IVP PRN ×4 (16:15→16:47)
--- NOTE | 2020-05-08 16:27 | P.OP ---
Date of Procedure: 05/08/20 Description of Procedure: SURGEON: BASIM PARDO MD PREOPERATIVE DIAGNOSES: 1. Sigmoid diverticulitis with chronic left lower quadrant abdominal pain 2. Chronic constipation 3. Chronic pain syndrome 4. Gastroesophageal reflux disease 5. Fibromyalgia 6. Depressive disorder 7. Anxiety disorder 8. Traumatic brain injury 9. Bipolar disorder 10. Obstructive sleep apnea 11. Hyperlipidemia 12. Glaucoma 13. Irritable bowel syndrome 14. Right ovarian cyst POSTOPERATIVE DIAGNOSES: 1. Sigmoid diverticulitis with chronic left lower quadrant abdominal pain 2. Chronic constipation 3. Chronic pain syndrome 4. Gastroesophageal reflux disease 5. Fibromyalgia 6. Depressive disorder 7. Anxiety disorder 8. Traumatic brain injury 9. Bipolar disorder 10. Obstructive sleep apnea 11. Hyperlipidemia 12. Glaucoma 13. Irritable bowel syndrome 14. Right ovarian cyst OPERATION: 1. Robotic-assisted daVinci Xi laparoscopic sigmoid colectomy with low anterior resection, 25 mm prior Ethicon EEA stapler 2. Intraoperative flexible sigmoidoscopy 3. Diagnostic laparoscopy with peritoneal washing and cell cytology for right ovarian cyst Anesthesia: GETA, local ESTIMATED BLOOD LOSS: 10 mL SPECIMENS REMOVED: Sigmoid colon, peritoneal fluid, donuts COMPLICATIONS: None. Condition: stable Disposition: floor FINDINGS: 1. Multiple large diverticulosis along highly redundant sigmoid colon, over 1 foot resected sigmoid colon 2. Simple appearing right ovarian cysts, 3 cm 3. Peritoneal fluid sent for cell cytology 4. Left ovary unremarkable 5. Uterus absent due to hysterectomy INDICATIONS: The patient is a 79-year-old female with recurrent left lower quadrant abdominal pain due to sigmoid diverticulosis and severe chronic constipation. Colonoscopy including barium enema confirmed moderate distortion of redundancy of sigmoid colon with moderate severe diverticulosis. Surgical resection with colectomy described. Benefits and risks, including infection, bowel injury, ureteral injury, colostomy creation and possibility for additional surgery was discussed at length. Informed consent was obtained. All questions of the patient and family were answered. DESCRIPTION: Earlier the patient had undergone a bowel prep using the enhanced colon recovery program. The patient was transferred to the operating room onto a split leg table and repositioned to modified lithotomy following intubation. A Ta catheter was placed. The abdomen was then prepped and draped in standard sterile fashion as Ioban was placed along the abdomen to minimize any contamination of skin floor. After a timeout protocol was performed, attention was then brought to the left upper quadrant whereby a 0 degree 5 mm laparoscopic trocar entry was performed. The abdominal cavity was entered and insufflated to 15 mmHg pressure, which was tolerated well. Next trocars were placed 20 cm superior from the pelvis. A 12-mm trocar was placed along the right lateral abdominal wall. A 8 mm port was placed along the right upper quadrant. Ports were placed 10 cm apart from each other including 15-20 cm away from the target anatomy of the left pelvis. The 5-mm port was exchanged for an 8 mm robotic port. The stapler 12-mm port was arranged along the left lateral abdominal wall. The patient was then placed in Trendelenburg position, at least 16. The robotic da Kierra XI system was primed. The robot was docked from the right side of the patient. Using atraumatic graspers and vessel sealer, the robotic system was docked and primed as described. Instruments were interchanged by the assistant chief train dispatcher including needle intermodal truck driver, clip networking technology instructor, hook cautery, robotic stapler and vessel sealer. The robot stapler was prepared along the right lateral abdominal wall. Attention was brought to the pelvis for investigation of right including left ovary per request of the patient's fixed income trading vice president. The right ovary demonstrated a simple 3 cm ovarian cyst. The left ovary was unremarkable. The uterus is absent from previous hysterectomy. Peritoneal washing including cell cytology was sent to pathology. Next, attention was brought to identify the sigmoid colon. The sigmoid colon was highly redundant with extension into the deep pelvis with torsion. The sigmoid mesentery was mobilized using a vessel sealer. Using multiple fires of the robot stapler 60 mm green loads, the descending colon was divided. Mobilization of the colon was performed to the pelvic brim along the sacral promontory. The mesentery of the sigmoid colon was mobilized towards the descending colon using a vessel sealer. Next, the top of the rectum was divided using robotic stapler 60 mm green loads. The rest of the sigmoid colon mesentery was mobilized using vessel sealer. Additionally, the sigmoid colon was mobilized onto the colon to minimize injury to the ureters. After mobilizing the proximal and distal resection of the sigmoid colon, I went to the foot of the bed to perform a lower endoscopy using the colonoscope. I went to the foot of the bed for selection of a sizer. A colorectal colon anastomosis with an ILS 25 was selected after using a sizer along the rectum. I re-scrubbed into the case. For the proximal sigmoid colon, a 25-mm anvil was placed after creating a colotomy then closed using a stapler at the distal end. The robot arms were temporarily undocked. A stapler was entered along the rectum and mated to the anvil for 1 minute. The anastomosis was created. The donuts were thick and intact. I then performed a bedside flexible sigmoidoscopy where no leaks or defects were confirmed as the assistant chief train dispatcher placed normal saline along the pelvis. I re-scrubbed into the case. Irrigation fluid was suctioned from the abdomen. The robot was undocked. All needles were removed from the abdominal cavity. A round #19 CHRIS drain was placed into the lateral and right side of the anastomosis in the pelvis and brought out through the right lateral port. Via the stapler site 12-mm left upper quadrant, the resected colon was brought out through the 12 mm trocar of the left upper quadrant using a 15 mm Endo Catch bag. The fascial defect was oversewn using 0 Vicryl and a Ismael Olmos. All incisions were copiously irrigated using dilute normal saline and hydrogen peroxide mixture. Next all pneumoperitoneum was evacuated from the abdominal cavity. The 8-mm trocar sites were reapproximated using 4-0 Monocryl in an interrupted subcuticular fashion. Local anesthetic was infiltrated to all wounds for postop analgesia. All incisions were also cleansed with diluted hydrogen peroxide. An Optifoam surgical dressing was placed over the colon extraction site and CHRIS site. Exofin was applied to the rest of the skin incisions. The patient was extubated successfully. The patient was transferred to the postanesthesia care unit in stable condition. Intraoperative photos were reviewed with the patient's family who were overall pleased with the level of care. The patient was transferred to the postanesthesia care unit in stable condition.
[2020-05-08] MEDS: SODIUM CHLORIDE 0.9% 1,000 ML IV SCH (16:41)
[2020-05-08] MEDS: HYDROmorphone 1 MG/ML 1 ML SYRINGE IVP PRN ×3 (17:32→23:44)
[2020-05-08] MEDS: ONDANSETRON 4 MG/2 ML VIAL IVP PRN (19:34)
[2020-05-08] MEDS: DICYCLOMINE 20 MG TAB PO SCH ×2 (20:01→20:42)
--- NOTE | 2020-05-08 20:11 | CONS ---
CONSULTATION REASON FOR CONSULTATION: Advice regarding history of fibromyalgia, hyperlipidemia, and multiple medical issues, requested by Dr. Cm. HISTORY OF PRESENT ILLNESS: This 79-year-old woman with a past medical history of fibromyalgia, GERD, hyperlipidemia, memory impairment, back surgery, DJD, being followed by Dr. Hill Mata in the outpatient setting, underwent a robotic-assisted laparoscopic sigmoid colectomy with low anterior resection by Dr. Cm. The patient tolerated the procedure well. Currently the patient is sedated because of pain. There is no history of any fever, rigor or chills. No history of headache, loss of consciousness, seizures. PAST MEDICAL HISTORY: History of sigmoid colitis, history of fibromyalgia, GERD, hyperlipidemia, back surgery. HOME MEDICATIONS: Home medications prior to admission include: 1. Zanaflex 4 mg t.i.d. p.r.n. 2. Percocet q.8 p.r.n. 3. Buspar 20 mg b.i.d. 4. Lyrica 25 mg b.i.d. 5. Protonix 40 mg each morning. 6. Prilosec 20 mg each morning. 7. MS Contin 30 mg q.8 p.r.n. 8. Remeron 45 mg at bedtime. 9. Melatonin 40 mg at bedtime. 10.Magnesium oxide 400 mg p.o. daily. 11.Latanoprost. 12.Cosopt. 13.Colace 100 mg daily. 14.Bentyl 20 mg q.i.d. 15.Cymbalta 60 mg at bedtime. 16.Vitamin D3 1000 daily. 17.Calcium 600 mg p.o. daily. 18.Lipitor 40 mg p.o. daily. 19.Ecotrin 81 mg p.o. daily. ALLERGIES: CODEINE, TUBERCULIN PPD, IBUPROFEN, TORADOL, ULTRAM. FAMILY HISTORY: History of cancer in the family. SOCIAL HISTORY: Previous history of smoking. No history of alcohol intake. REVIEW OF SYSTEMS: ENT: No diminished hearing. No diminished vision. CARDIOVASCULAR SYSTEM: No angina, palpitations. RESPIRATORY SYSTEM: As mentioned earlier. GI: As mentioned earlier. : No dysuria or retention. NERVOUS SYSTEM: No numbness, weakness. ALLERGY/IMMUNOLOGY: No asthma, hayfever. MUSCULOSKELETAL: As mentioned earlier. HEMATOLOGY/ONCOLOGY: No history of anemia. ENDOCRINE: No history of diabetes, hypothyroidism. CONSTITUTIONAL: As mentioned earlier. DERMATOLOGY: Negative. RHEUMATOLOGY: Negative. PSYCHIATRY: As mentioned earlier. PHYSICAL EXAMINATION: Patient alert and oriented x3. Pulse 71, blood pressure 141/75, respirations 16, temperature normal, pulse ox 98% on 2 L. HEENT: Conjunctivae normal. NECK: No jugular venous distention. CARDIOVASCULAR SYSTEM: S1, S2 muffled. RESPIRATORY SYSTEM: Breath sounds diminished at the bases. No rhonchi. No crackles. ABDOMEN: Soft, non-tender. No mass palpable. LEGS: No edema. No swelling. NERVOUS SYSTEM: Higher functions as mentioned earlier. Moves all 4 limbs. No focal motor or sensory deficit. LYMPHATICS: No lymph node palpable in neck, axillae or groin. SKIN: No ulcer, rash, bleeding. JOINTS: No active deforming arthropathy. LABS: WBC 4.8, hemoglobin 10.9, sodium 138, potassium 3.6. ASSESSMENT: 1. Status post robotic-assisted laparoscopic sigmoid colectomy with low anterior resection. 2. Anemia, normocytic anemia of chronic disease. 3. History of fibromyalgia. 4. Gastroesophageal reflux disease. 5. Hyperlipidemia. 6. Memory impairment. 7. Degenerative joint disease. 8. Sleep apnea. 9. History of chronic back pain. 10.History of back surgery. 11.History of hysterectomy. 12.History of anxiety, bipolar, depression, panic disorder. 13.History of nicotine dependence. RECOMMENDATIONS AND DISCUSSION: In this 79-year-old woman who presented with multiple complex medical issues, we will monitor the patient closely, continue the current medications, continue symptomatic treatment. Otherwise, resume the home medications. Incentive spirometry. DVT prophylaxis. We will follow the patient closely with you. The patient may be asked to follow up with Dr. Hill Mata closely after discharge. Thank you, Dr. Cm, for letting us participate in the care of this patient. MMODL / IJN: [id number] /
[2020-05-08] MEDS: ALVIMOPAN 12 MG CAPSULE PO SCH (20:41)
[2020-05-08] MEDS: DULoxetine HCL 60 MG CAPSULE.DR PO SCH (20:42)
[2020-05-08] MEDS: MELATONIN 5 MG TABLET PO SCH (20:42)
[2020-05-08] MEDS: busPIRone HCl 10 MG TAB PO SCH (20:42)
[2020-05-08] MEDS: DORZOLAMIDE-TIMOLOL 2.23%/0.68 10ML BTL BOTH EYES SCH (20:42)
[2020-05-08] MEDS: PREGABALIN 25 MG CAP PO SCH (20:42)
[2020-05-08] MEDS: LATANOPROST 0.005% OPHTH DROPS 2.5 ML BTL BOTH EYES SCH (20:42)
[2020-05-08] MEDS: MIRTAZAPINE 45 MG TABLET PO SCH (20:43)
[2020-05-08] MEDS: HEPARIN SODIUM,PORCINE 5,000 UNIT/ML 1 ML VIAL SQ SCH (20:43)
[2020-05-08] MEDS: KETOROLAC 30 MG/ML 1 ML VIAL IVP SCH (23:34)
[2020-05-08] MEDS: PIPERACILLIN-TAZOBACTAM 3.375 GM in SODIUM CHLORIDE 0.9% 100 ML IVPB SCH (23:34)
[2020-05-09] MEDS: SODIUM CHLORIDE 0.9% 1,000 ML IV SCH ×4 (02:18→21:06)
[2020-05-09] MEDS: HYDROmorphone 1 MG/ML 1 ML SYRINGE IVP PRN ×6 (02:48→23:46)
[2020-05-09] MEDS: LACTATED RINGERS 1,000 ML IV SCH (05:47)
[2020-05-09] MEDS: KETOROLAC 30 MG/ML 1 ML VIAL IVP SCH ×4 (05:59→23:42)
[2020-05-09] MEDS: DOCUSATE 100 MG CAP PO SCH (08:30)
[2020-05-09] MEDS: busPIRone HCl 10 MG TAB PO SCH ×2 (08:31→21:05)
[2020-05-09] MEDS: ATORVASTATIN 40 MG TAB PO SCH (08:31)
[2020-05-09] MEDS: PANTOPRAZOLE 40 MG TABLET PO SCH (08:31)
[2020-05-09] MEDS: MAGNESIUM OXIDE 400 MG TAB PO SCH (08:31)
[2020-05-09] MEDS: ALVIMOPAN 12 MG CAPSULE PO SCH ×2 (08:31→21:05)
[2020-05-09] MEDS: DORZOLAMIDE-TIMOLOL 2.23%/0.68 10ML BTL BOTH EYES SCH ×2 (08:32→21:05)
[2020-05-09] MEDS: HEPARIN SODIUM,PORCINE 5,000 UNIT/ML 1 ML VIAL SQ SCH ×2 (08:32→21:04)
[2020-05-09] MEDS: PREGABALIN 25 MG CAP PO SCH ×2 (08:32→21:05)
[2020-05-09] MEDS: DICYCLOMINE 20 MG TAB PO SCH ×4 (08:32→21:05)
[2020-05-09] MEDS: PIPERACILLIN-TAZOBACTAM 3.375 GM in SODIUM CHLORIDE 0.9% 100 ML IVPB SCH (08:33)
[2020-05-09 08:46] LABS: Basophils % (A) 0 %; Eosinophils % (A) 0 %; HCT 30.5 % (34.0-46.0); HGB 9.5 gm/dL (11.4-16.0); Hypochromasia Slight; Lymphocytes # (A) 1.2 k/uL (1.0-4.8); Lymphocytes % (A) 16 %; MCH 26.7 pg (25.0-35.0); MCHC 31.1 g/dL (31.0-37.0); MCV 86.1 fL (80.0-100.0); Monocytes # (A) 0.5 k/uL (0-1.0); Monocytes % (A) 7 %; Neutrophils # (A) 5.7 k/uL (1.3-7.7); Neutrophils % (A) 76 %; Platelet Count 152 k/uL (150-450); RBC 3.54 m/uL (3.80-5.40); RDW 14.2 % (11.5-15.5); WBC 7.6 k/uL (3.8-10.6)
[2020-05-09 08:58] LABS: African American GFR (CKD) >90 (>60 ml/min/1.73 sqM); Anion Gap 3 mmol/L; Blood Urea Nitrogen 15 mg/dL (7-17); Calcium 8.1 mg/dL (8.4-10.2); Carbon Dioxide 27 mmol/L (22-30); Chloride 107 mmol/L (98-107); Glucose 101 mg/dL (74-99); Non-African American GFR(CKD) 80 (>60 ml/min/1.73 sqM); Potassium 3.5 mmol/L (3.5-5.1); Sodium 137 mmol/L (137-145)
[2020-05-09] MEDS ORDERED: ASPIRIN 81 MG PO SCH (09:00)
--- NOTE | 2020-05-09 11:02 | P.PN ---
Subjective Progress Note Date: 05/09/20 Principal diagnosis: Sigmoid colectomy Patient doing well today. She is already had multiple loose stools. White blood cell count normal at 7.6, hemoglobin 9.5. Complaining of some heartburn. Mild pain. Objective - Vital Signs Vital signs: Vital Signs Temp 98.7 F 05/09/20 07:40 Pulse 84 05/09/20 07:40 Resp 16 05/09/20 07:40 BP 102/63 05/09/20 07:40 Pulse Ox 92 L 05/09/20 07:40 Intake & Output 05/08/20 05/09/20 05/09/20 18:59 06:59 18:59 Intake Total 3200 1130 Output Total 160 Balance 3040 1130 Weight 82.554 kg Intake: IV 3200 Intake, IV Titration 950 Amount Piperacillin-Tazobactam 3 100 .375 gm In Sodium Chloride 0.9% 100 ml @ 25 mls/hr IVPB Q8HR [facility] Rx# :[id number] Sodium Chloride 0.9% 1, 850 000 ml @ 100 mls/hr IV . Q10H [facility] Rx#:[id number] Oral 180 Output: Urine 150 Estimated Blood Loss 10 Other: Voiding Method Indwelling Catheter - Exam Abdomen: Soft, nondistended, mild tenderness, incision and dressings clean and dry - Labs CBC & Chem 7: 05/09/20 07:56 05/09/20 07:56 Labs: Abnormal Lab Results - Last 24 Hours (Table) 05/09/20 05/09/20 Range/Units 07:56 07:56 RBC 3.54 L (3.80-5.40) m/uL Hgb 9.5 L (11.4-16.0) gm/dL Hct 30.5 L (34.0-46.0) % Glucose 101 H (74-99) mg/dL Calcium 8.1 L (8.4-10.2) mg/dL Assessment and Plan (1) Diverticulitis Narrative/Plan: Patient doing well today. Increase activity levels. Continue clear liquids for today. Ambulate. Current Visit: No Status: Acute Code(s): K57.92 - DVTRCLI OF INTEST, PART UNSP, W/O PERF OR ABSCESS W/O BLEED SNOMED Code(s): 119472168
[2020-05-09] MEDS: ONDANSETRON 4 MG/2 ML VIAL IVP PRN (11:58)
[2020-05-09] MEDS: DULoxetine HCL 60 MG CAPSULE.DR PO SCH (21:05)
[2020-05-09] MEDS: MELATONIN 5 MG TABLET PO SCH (21:05)
[2020-05-09] MEDS: MIRTAZAPINE 45 MG TABLET PO SCH (21:05)
[2020-05-09] MEDS: LATANOPROST 0.005% OPHTH DROPS 2.5 ML BTL BOTH EYES SCH (21:05)
--- NOTE | 2020-05-09 23:53 | P.PN ---
Subjective Progress Note Date: 05/09/20 Principal diagnosis: S/p laparoscopic sigmoid colectomy Ms. Christine is a 79-year-old female with a past medical history of fibromyalgia, GERD, hyperlipidemia, memory impairment, DJD being followed by Dr. Hill Mata patient, underwent robotic assisted laparoscopic sigmoid colectomy with low anterior resection by Dr. Slaughter . The patient tolerated the procedure well. She is currently postop day 2. Patient states that she has abdominal soreness. She had multiple loose stools this morning. Patient denies having any chest pain or palpitations. No cough or difficulty in breathing. On reviewing the patient's vitals she was afebrile saturating 94 on room air. On reviewing the patient's labs hemoglobin has been stable around 9.5, electrolytes within normal limits. Active Medications Alvimopan (Entereg) 12 mg PO BID [facility] Stop: 05/15/20 09:01 Last Admin: 05/09/20 21:05 Dose: 12 mg Documented by: Atorvastatin Calcium (Lipitor) 40 mg PO DAILY [facility] Last Admin: 05/09/20 08:31 Dose: 40 mg Documented by: Buspirone HCl (Buspar) 20 mg PO BID [facility] Last Admin: 05/09/20 21:05 Dose: 20 mg Documented by: Dicyclomine HCl (Bentyl) 20 mg PO QID [facility] Last Admin: 05/09/20 21:05 Dose: 20 mg Documented by: Docusate Sodium (Colace) 100 mg PO DAILY [facility] Last Admin: 05/09/20 08:30 Dose: Not Given Documented by: Dorzolamide/Timolol (Cosopt) 1 drops BOTH EYES BID [facility] Last Admin: 05/09/20 21:05 Dose: 1 drops Documented by: Duloxetine HCl (Cymbalta) 60 mg PO HS [facility] Last Admin: 05/09/20 21:05 Dose: 60 mg Documented by: Heparin Sodium (Porcine) (Heparin) 5,000 unit SQ Q12HR [facility] Last Admin: 05/09/20 21:04 Dose: 5,000 unit Documented by: Hydromorphone HCl (Dilaudid) 1 mg IVP Q3HR PRN PRN Reason: Severe Pain Last Admin: 05/09/20 23:46 Dose: 1 mg Documented by: Lactated Ringer's (Lactated Ringers) 1,000 mls @ 20 mls/hr IV .Q24H [facility] Last Admin: 05/09/20 05:47 Dose: Not Given Documented by: Sodium Chloride (Saline 0.9%) 1,000 mls @ 100 mls/hr IV .Q10H [facility] Last Admin: 05/09/20 21:06 Dose: 100 mls/hr Documented by: Ketorolac Tromethamine (Toradol) 15 mg IVP Q6HR [facility] Stop: 05/12/20 21:13 Last Admin: 05/09/20 23:42 Dose: 15 mg Documented by: Latanoprost (Xalatan 0.005%) 1 drops BOTH EYES [facility] Last Admin: 05/09/20 21:05 Dose: 1 drops Documented by: Lidocaine HCl (.Xylocaine 1% Inj (10mg/Ml) For Iv Start) 0.1 ml INTRADERMA PER PROTOCOL PRN PRN Reason: IV Start Last Admin: 05/08/20 09:50 Dose: 0.1 ml Documented by: Magnesium Oxide (Mag-Ox) 400 mg PO DAILY [facility] Last Admin: 05/09/20 08:31 Dose: 400 mg Documented by: Melatonin (Melatonin) 10 mg PO [facility] Last Admin: 05/09/20 21:05 Dose: 10 mg Documented by: Metoclopramide HCl (Reglan) 10 mg IVP Q6HR PRN PRN Reason: Nausea and Vomiting Mirtazapine (Remeron) 45 mg PO [facility] Last Admin: 05/09/20 21:05 Dose: 45 mg Documented by: Miscellaneous Information (Pharmacy To Dose Per Abx Ppx Guidelines) 1 each MISCELLANE DIRECTED PRN PRN Reason: Per Protocol Morphine Sulfate (Ms Contin) 30 mg PO Q8H PRN PRN Reason: Pain Ondansetron HCl (Zofran) 4 mg IVP Q6HR PRN PRN Reason: Nausea And Vomiting Last Admin: 05/09/20 11:58 Dose: 4 mg Documented by: Oxycodone/Acetaminophen (Percocet 10-325) 1 each PO Q8HR PRN PRN Reason: Pain Pantoprazole Sodium (Protonix) 40 mg PO AC-BRKFST [facility] Last Admin: 05/09/20 08:31 Dose: 40 mg Documented by: Pregabalin (Lyrica) 25 mg PO BID [facility] Last Admin: 05/09/20 21:05 Dose: 25 mg Documented by: Tizanidine HCl (Zanaflex) 4 mg PO TID PRN PRN Reason: Pain Last Admin: 05/09/20 01:46 Dose: 4 mg Documented by: Objective - Vital Signs Vital signs: Vital Signs Temp 98.7 F 05/09/20 14:55 Pulse 76 05/09/20 14:55 Resp 16 05/09/20 14:55 BP 107/55 05/09/20 14:55 Pulse Ox 92 L 05/09/20 14:55 Intake & Output 05/08/20 05/09/20 05/09/20 18:59 06:59 18:59 Intake Total 3200 1130 540 Output Total 160 Balance 3040 1130 540 Weight 82.554 kg Intake: IV 3200 Intake, IV Titration 950 Amount Piperacillin-Tazobactam 3 100 .375 gm In Sodium Chloride 0.9% 100 ml @ 25 mls/hr IVPB Q8HR [facility] Rx# :[id number] Sodium Chloride 0.9% 1, 850 000 ml @ 100 mls/hr IV . Q10H [facility] Rx#:[id number] Oral 180 540 Output: Urine 150 Estimated Blood Loss 10 Other: Voiding Method Indwelling Catheter Indwelling Catheter # Voids 1 # Bowel Movements 1 - Exam General: The patient is awake and alert, no acute distress HEENT: No pallor, no icterus, Cardiovascular: There is a regular rate and rhythm. No murmur, rub or gallop is appreciated. Respiratory: Lungs are clear to auscultation, respirations are non-labored, breath sounds are equal. Decreased at thew lower lung bases. Gastrointestinal: Soft, non-distended, non-tender abdomen . There is no rebound or guarding present. Extremities: No pedal edema. Neurological: A&O x 3. No obvious motor or sensory or focal deficits. Skin: Skin is warm and dry and no rashes or lesions are noted. Psychiatric: Cooperative, appropriate mood & affect, normal judgment. - Labs CBC & Chem 7: 05/09/20 07:56 05/09/20 07:56 Labs: Abnormal Lab Results - Last 24 Hours (Table) 05/09/20 05/09/20 Range/Units 07:56 07:56 RBC 3.54 L (3.80-5.40) m/uL Hgb 9.5 L (11.4-16.0) gm/dL Hct 30.5 L (34.0-46.0) % Glucose 101 H (74-99) mg/dL Calcium 8.1 L (8.4-10.2) mg/dL Assessment and Plan Assessment: ASSESSMENT Status post robotic assisted laparoscopic sigmoid colectomy with low anterior resection Anemia, normocytic anemia of chronic disease History of fibromyalgia GERD Hyperlipidemia Memory impairment DJD Obstructive sleep apnea History of chronic low back pain History of anxiety with depression History of panic disorder History of bipolar disorder History of nicotine dependence PLAN: Postop patient has been doing well, she had loose stools this morning. Continue with the current medication regimen. Encouraged patient to continue with incentive spirometry. DVT prophylaxis. Further recommendations to follow depending on the progress of the patient.
[2020-05-10] MEDS: HYDROmorphone 1 MG/ML 1 ML SYRINGE IVP PRN ×6 (04:10→23:47)
[2020-05-10] MEDS: LACTATED RINGERS 1,000 ML IV SCH (05:00)
[2020-05-10] MEDS: KETOROLAC 30 MG/ML 1 ML VIAL IVP SCH ×4 (06:04→23:47)
[2020-05-10 07:37] LABS: Basophils % (A) 0 %; Eosinophils # (A) 0.1 k/uL (0-0.7); Eosinophils % (A) 1 %; HCT 30.5 % (34.0-46.0); HGB 9.3 gm/dL (11.4-16.0); Hypochromasia Slight; Lymphocytes % (A) 22 %; MCH 26.4 pg (25.0-35.0); MCHC 30.6 g/dL (31.0-37.0); MCV 86.2 fL (80.0-100.0); Mean Platelet Volume 7.6; Monocytes # (A) 0.3 k/uL (0-1.0); Monocytes % (A) 6 %; Neutrophils # (A) 3.1 k/uL (1.3-7.7); Neutrophils % (A) 69 %; Platelet Count 132 k/uL (150-450); RBC 3.53 m/uL (3.80-5.40); RDW 14.2 % (11.5-15.5); WBC 4.5 k/uL (3.8-10.6)
[2020-05-10 07:57] LABS: African American GFR (CKD) >90 (>60 ml/min/1.73 sqM); Anion Gap 4 mmol/L; Blood Urea Nitrogen 13 mg/dL (7-17); Carbon Dioxide 26 mmol/L (22-30); Chloride 110 mmol/L (98-107); Glucose 97 mg/dL (74-99); Non-African American GFR(CKD) 85 (>60 ml/min/1.73 sqM); Potassium 3.5 mmol/L (3.5-5.1); Sodium 140 mmol/L (137-145)
[2020-05-10] MEDS: PREGABALIN 25 MG CAP PO SCH ×2 (08:39→20:43)
[2020-05-10] MEDS: SODIUM CHLORIDE 0.9% 1,000 ML IV SCH ×2 (08:40→17:19)
[2020-05-10] MEDS: DICYCLOMINE 20 MG TAB PO SCH ×4 (08:41→20:43)
[2020-05-10] MEDS: PANTOPRAZOLE 40 MG TABLET PO SCH (08:43)
[2020-05-10] MEDS: ALVIMOPAN 12 MG CAPSULE PO SCH (08:43)
[2020-05-10] MEDS: MAGNESIUM OXIDE 400 MG TAB PO SCH (08:44)
[2020-05-10] MEDS: ATORVASTATIN 40 MG TAB PO SCH (08:44)
[2020-05-10] MEDS: busPIRone HCl 10 MG TAB PO SCH ×2 (08:44→20:43)
[2020-05-10] MEDS: HEPARIN SODIUM,PORCINE 5,000 UNIT/ML 1 ML VIAL SQ SCH ×2 (08:45→20:42)
[2020-05-10] MEDS: DORZOLAMIDE-TIMOLOL 2.23%/0.68 10ML BTL BOTH EYES SCH ×2 (08:45→20:44)
[2020-05-10] MEDS: DOCUSATE 100 MG CAP PO SCH (08:45)
--- NOTE | 2020-05-10 11:15 | P.PN ---
Subjective Progress Note Date: 05/10/20 Principal diagnosis: Sigmoid colectomy Patient feels better today. Stools have become more formed. Pain is improved. White blood cell count 4.5. Objective - Vital Signs Vital signs: Vital Signs Temp 98.0 F 05/10/20 08:05 Pulse 83 05/10/20 08:05 Resp 16 05/10/20 08:05 BP 131/71 05/10/20 08:05 Pulse Ox 96 05/10/20 08:05 Intake & Output 05/09/20 05/10/20 05/10/20 18:59 06:59 18:59 Intake Total 540 320 Balance 540 320 Intake: Oral 540 320 Other: Voiding Method Indwelling Catheter Toilet # Voids 1 # Bowel Movements 1 - Exam Abdomen: Soft, nondistended, incisions clean and dry, tenderness improved - Labs CBC & Chem 7: 05/10/20 07:03 05/10/20 07:03 Labs: Abnormal Lab Results - Last 24 Hours (Table) 05/10/20 05/10/20 Range/Units 07:03 07:03 RBC 3.53 L (3.80-5.40) m/uL Hgb 9.3 L (11.4-16.0) gm/dL Hct 30.5 L (34.0-46.0) % MCHC 30.6 L (31.0-37.0) g/dL Plt Count 132 L (150-450) k/uL Chloride 110 H (98-107) mmol/L Calcium 8.0 L (8.4-10.2) mg/dL Assessment and Plan (1) Diverticulitis Narrative/Plan: Patient doing better today. Will increase diet. Ambulate. Current Visit: No Status: Acute Code(s): K57.92 - DVTRCLI OF INTEST, PART UNSP, W/O PERF OR ABSCESS W/O BLEED SNOMED Code(s): 094732762
--- NOTE | 2020-05-10 14:48 | P.PN ---
Subjective Progress Note Date: 05/10/20 Principal diagnosis: S/p laparoscopic sigmoid colectomy Ms. Christine is a 79-year-old female with a past medical history of fibromyalgia, GERD, hyperlipidemia, memory impairment, DJD being followed by Dr. Hill Mata patient, underwent robotic assisted laparoscopic sigmoid colectomy with low anterior resection by Dr. Slaughter . The patient tolerated the procedure well. She is currently postop day 2. Patient states that she has abdominal soreness. She had multiple loose stools this morning. Patient denies having any chest pain or palpitations. No cough or difficulty in breathing. On reviewing the patient's vitals she was afebrile saturating 94 on room air. On reviewing the patient's labs hemoglobin has been stable around 9.5, electrolytes within normal limits. On 05/10/2020 - patient is lying comfortably in bed appears to be in no acute distress. Patient had 3 bowel movements since this morning, dark in color looks like dried blood. Patient has been getting out of the bed by herself. Her diabetes is slowly being advanced and she is able to tolerate it. Patient denies having any chest pain or palpitations. she denies having any cough or difficulty in breathing, no lower extremity swelling. Vitals have been stable.labs from this morning show stable hemoglobin around 9.3. Active Medications Alvimopan (Entereg) 12 mg PO BID [facility] Stop: 05/15/20 09:01 Last Admin: 05/10/20 08:43 Dose: Not Given Documented by: Atorvastatin Calcium (Lipitor) 40 mg PO DAILY [facility] Last Admin: 05/10/20 08:44 Dose: 40 mg Documented by: Buspirone HCl (Buspar) 20 mg PO BID [facility] Last Admin: 05/10/20 08:44 Dose: 20 mg Documented by: Dicyclomine HCl (Bentyl) 20 mg PO QID [facility] Last Admin: 05/10/20 11:39 Dose: 20 mg Documented by: Docusate Sodium (Colace) 100 mg PO DAILY [facility] Last Admin: 05/10/20 08:45 Dose: Not Given Documented by: Dorzolamide/Timolol (Cosopt) 1 drops BOTH EYES BID [facility] Last Admin: 05/10/20 08:45 Dose: 1 drops Documented by: Duloxetine HCl (Cymbalta) 60 mg PO HS [facility] Last Admin: 05/09/20 21:05 Dose: 60 mg Documented by: Heparin Sodium (Porcine) (Heparin) 5,000 unit SQ Q12HR [facility] Last Admin: 05/10/20 08:45 Dose: 5,000 unit Documented by: Hydromorphone HCl (Dilaudid) 1 mg IVP Q3HR PRN PRN Reason: Severe Pain Last Admin: 05/10/20 11:40 Dose: 1 mg Documented by: Lactated Ringer's (Lactated Ringers) 1,000 mls @ 20 mls/hr IV .Q24H [facility] Last Admin: 05/10/20 05:00 Dose: Not Given Documented by: Sodium Chloride (Saline 0.9%) 1,000 mls @ 100 mls/hr IV .Q10H [facility] Last Admin: 05/10/20 08:40 Dose: 100 mls/hr Documented by: Ketorolac Tromethamine (Toradol) 15 mg IVP Q6HR [facility] Stop: 05/12/20 21:13 Last Admin: 05/10/20 11:39 Dose: 15 mg Documented by: Latanoprost (Xalatan 0.005%) 1 drops BOTH EYES [facility] Last Admin: 05/09/20 21:05 Dose: 1 drops Documented by: Lidocaine HCl (.Xylocaine 1% Inj (10mg/Ml) For Iv Start) 0.1 ml INTRADERMA PER PROTOCOL PRN PRN Reason: IV Start Last Admin: 05/08/20 09:50 Dose: 0.1 ml Documented by: Magnesium Oxide (Mag-Ox) 400 mg PO DAILY [facility] Last Admin: 05/10/20 08:44 Dose: 400 mg Documented by: Melatonin (Melatonin) 10 mg PO [facility] Last Admin: 05/09/20 21:05 Dose: 10 mg Documented by: Metoclopramide HCl (Reglan) 10 mg IVP Q6HR PRN PRN Reason: Nausea and Vomiting Mirtazapine (Remeron) 45 mg PO [facility] Last Admin: 05/09/20 21:05 Dose: 45 mg Documented by: Miscellaneous Information (Pharmacy To Dose Per Abx Ppx Guidelines) 1 each MISCELLANE DIRECTED PRN PRN Reason: Per Protocol Morphine Sulfate (Ms Contin) 30 mg PO Q8H PRN PRN Reason: Pain Ondansetron HCl (Zofran) 4 mg IVP Q6HR PRN PRN Reason: Nausea And Vomiting Last Admin: 05/09/20 11:58 Dose: 4 mg Documented by: Oxycodone/Acetaminophen (Percocet 10-325) 1 each PO Q8HR PRN PRN Reason: Pain Pantoprazole Sodium (Protonix) 40 mg PO AC-BRKFST [facility] Last Admin: 05/10/20 08:43 Dose: 40 mg Documented by: Pregabalin (Lyrica) 25 mg PO BID [facility] Last Admin: 05/10/20 08:39 Dose: 25 mg Documented by: Tizanidine HCl (Zanaflex) 4 mg PO TID PRN PRN Reason: Pain Last Admin: 05/09/20 01:46 Dose: 4 mg Documented by: Objective - Vital Signs Vital signs: Vital Signs Temp 98.0 F 05/10/20 08:05 Pulse 83 05/10/20 08:05 Resp 16 05/10/20 08:05 BP 131/71 05/10/20 08:05 Pulse Ox 96 05/10/20 08:05 Intake & Output 05/09/20 05/10/20 05/10/20 18:59 06:59 18:59 Intake Total 540 320 Balance 540 320 Intake: Oral 540 320 Other: Voiding Method Indwelling Catheter Toilet # Voids 1 # Bowel Movements 1 - Labs CBC & Chem 7: 05/10/20 07:03 05/10/20 07:03 Labs: Abnormal Lab Results - Last 24 Hours (Table) 05/10/20 05/10/20 Range/Units 07:03 07:03 RBC 3.53 L (3.80-5.40) m/uL Hgb 9.3 L (11.4-16.0) gm/dL Hct 30.5 L (34.0-46.0) % MCHC 30.6 L (31.0-37.0) g/dL Plt Count 132 L (150-450) k/uL Chloride 110 H (98-107) mmol/L Calcium 8.0 L (8.4-10.2) mg/dL Assessment and Plan Assessment: ASSESSMENT Status post robotic assisted laparoscopic sigmoid colectomy with low anterior resection Anemia, normocytic anemia of chronic disease History of fibromyalgia GERD Hyperlipidemia Memory impairment DJD Obstructive sleep apnea History of chronic low back pain History of anxiety with depression History of panic disorder History of bipolar disorder History of nicotine dependence PLAN: Continue with the current medication regimen. Encouraged patient to continue with incentive spirometry. DVT prophylaxis. Further recommendations to follow depending on the progress of the patient.
[2020-05-10] MEDS: MIRTAZAPINE 45 MG TABLET PO SCH (20:43)
[2020-05-10] MEDS: DULoxetine HCL 60 MG CAPSULE.DR PO SCH (20:43)
[2020-05-10] MEDS: MELATONIN 5 MG TABLET PO SCH (20:43)
[2020-05-10] MEDS: LATANOPROST 0.005% OPHTH DROPS 2.5 ML BTL BOTH EYES SCH (20:44)
[2020-05-11] MEDS: HYDROmorphone 1 MG/ML 1 ML SYRINGE IVP PRN ×6 (02:45→21:00)
[2020-05-11] MEDS: SODIUM CHLORIDE 0.9% 1,000 ML IV SCH ×2 (03:32→11:12)
[2020-05-11] MEDS: LACTATED RINGERS 1,000 ML IV SCH (03:33)
[2020-05-11] MEDS: KETOROLAC 30 MG/ML 1 ML VIAL IVP SCH ×3 (05:36→17:53)
[2020-05-11] MEDS: HEPARIN SODIUM,PORCINE 5,000 UNIT/ML 1 ML VIAL SQ SCH ×2 (07:26→21:00)
[2020-05-11] MEDS: busPIRone HCl 10 MG TAB PO SCH ×2 (07:27→21:00)
[2020-05-11] MEDS: MAGNESIUM OXIDE 400 MG TAB PO SCH (07:27)
[2020-05-11] MEDS: DOCUSATE 100 MG CAP PO SCH (07:27)
[2020-05-11] MEDS: PREGABALIN 25 MG CAP PO SCH ×2 (07:27→21:00)
[2020-05-11] MEDS: ATORVASTATIN 40 MG TAB PO SCH (07:27)
[2020-05-11] MEDS: DICYCLOMINE 20 MG TAB PO SCH ×4 (07:28→21:00)
[2020-05-11] MEDS: PANTOPRAZOLE 40 MG TABLET PO SCH (07:28)
[2020-05-11] MEDS: DORZOLAMIDE-TIMOLOL 2.23%/0.68 10ML BTL BOTH EYES SCH ×2 (07:29→21:01)
[2020-05-11] MEDS: oxyCODONE-APAP 10-325MG 1 EACH TAB PO PRN ×2 (07:37→17:56)
[2020-05-11 10:45] LABS: Basophils % (A) 0 %; Eosinophils # (A) 0.1 k/uL (0-0.7); Eosinophils % (A) 2 %; HCT 31.3 % (34.0-46.0); HGB 9.8 gm/dL (11.4-16.0); Hypochromasia Slight; Lymphocytes % (A) 29 %; MCH 26.6 pg (25.0-35.0); MCHC 31.2 g/dL (31.0-37.0); MCV 85.2 fL (80.0-100.0); Mean Platelet Volume 8.4; Monocytes # (A) 0.3 k/uL (0-1.0); Monocytes % (A) 9 %; Neutrophils % (A) 57 %; Platelet Count 127 k/uL (150-450); RBC 3.68 m/uL (3.80-5.40); RDW 14.3 % (11.5-15.5); WBC 3.5 k/uL (3.8-10.6)
[2020-05-11] MEDS: MORPHINE SULFATE ER 30 MG TABLET PO PRN ×2 (12:04→21:00)
--- NOTE | 2020-05-11 12:40 | P.PN ---
<Nerissa Conner - Last Filed: 05/11/20 12:38> Subjective Progress Note Date: 05/11/20 CHIEF COMPLAINT: Sigmoid diverticulitis with chronic left lower quadrant abdominal pain HISTORY OF PRESENT ILLNESS: Patient is status post Robotic-assisted daVinci Xi laparoscopic sigmoid colectomy with low anterior resection. She is complaining of abdominal pain. She reports that her schedule of pain medications was messed up. She did receive a dose of IV Dilaudid this morning. She has chronic back pain issues in which she takes Percocet and morphine at home. She reports having a bowel movement. She does note some clots in the bowel movement. She is tolerating a low fiber diet. She did have some nausea no vomiting. She does not feel ready for discharge. She is afebrile. WBC 3.5, hemoglobin 9.8 PHYSICAL EXAM: VITAL SIGNS: Reviewed GENERAL: Well-developed in no acute distress. HEENT: No sclera icterus. Extraocular movements grossly intact. Moist buccal mucosa. Head is atraumatic, normocephalic. Hears conversational speech. No nasal drainage. NECK: Supple without lymphadenopathy. CHEST: Non-labored respirations and equal bilateral excursions. CARDIOVASCULAR: Regular rate with regular rhythm. Palpable 2+ radial pulses. ABDOMEN: Soft. Nondistended. Diffuse mild tenderness. Abdominal binder in place. MUSCULOSKELETAL: No clubbing or cyanosis. NEUROLOGIC: No focal or lateralizing signs. Cranial nerves II through XII grossly intact. PSYCH: Appropriate affect. Alert and oriented to person, place and time. SKIN: Well perfused. Good skin turgor. ASSESSMENT: 1. Sigmoid diverticulitis with chronic left lower quadrant abdominal pain status post Robotic-assisted daVinci Xi laparoscopic sigmoid colectomy with low anterior resection, Intraoperative flexible sigmoidoscopy, Diagnostic la paroscopy with peritoneal washing and cell cytology for right ovarian cyst. POD #3 2. Chronic constipation 3. Chronic pain syndrome 4. Gastroesophageal reflux disease 5. Fibromyalgia 6. Depressive disorder 7. Anxiety disorder 8. Traumatic brain injury 9. Bipolar disorder 10. Obstructive sleep apnea 11. Hyperlipidemia 12. Glaucoma 13. Irritable bowel syndrome 14. Right ovarian cyst PLAN: -Consult physical therapy -Encourage patient to ambulate -Encourage incentive spirometer use -Continue with current pain medication regimen -continue low fiber diet -Patient will stay 1 more day for postop pain control -Plan for discharge home tomorrow Physician Auto Headlight Mechanic note has been reviewed by physician. Signing provider agrees with the documented findings, assessment, and plan of care. Objective - Vital Signs Vital signs: Vital Signs Temp 98.3 F 05/11/20 07:00 Pulse 73 05/11/20 07:00 Resp 17 05/11/20 07:00 BP 100/58 05/11/20 07:00 Pulse Ox 90 L 05/11/20 07:00 Intake & Output 05/10/20 05/11/20 05/11/20 18:59 06:59 18:59 Intake Total 320 Output Total 500 Balance -180 Intake: Oral 320 Output: Urine 500 Other: Voiding Method Toilet Toilet Toilet - Labs CBC & Chem 7: 05/11/20 10:24 05/10/20 07:03 <Ambreen mC - Last Filed: 05/12/20 20:24> Subjective Patient seen and evaluated with above. Please see additional comments. Patient has baseline chronic pain syndrome for which post-op pain management is adjusted. Additionally patient reports her pre-existing left lower quadrant abdominal pain has improved. Intra-op findings of her surgery was reviewed in detail. Likely discharge tomorrow. Objective - Vital Signs Vital signs: Vital Signs Temp 98.6 F 05/12/20 07:00 Pulse 85 05/12/20 07:00 Resp 05/12/20 07:00 BP 135/61 05/12/20 07:00 Pulse Ox 94 L 05/12/20 07:00 Intake & Output 05/12/20 05/12/20 05/13/20 06:59 18:59 06:59 Other: Voiding Method Toilet Toilet - Labs CBC & Chem 7: 05/11/20 10:24 05/10/20 07:03 Assessment and Plan (1) Sigmoid diverticulosis Status: Acute Code(s): K57.30 - DVRTCLOS OF LG INT W/O PERFORATION OR ABSCESS W/O BLEEDING SNOMED Code(s): 532606762 (2) Left lower quadrant abdominal pain Status: Acute Code(s): R10.32 - LEFT LOWER QUADRANT PAIN SNOMED Code(s): 917025288 (3) Chronic pain syndrome Status: Chronic Code(s): G89.4 - CHRONIC PAIN SYNDROME SNOMED Code(s): 629643585 (4) S/P colectomy Status: Acute Code(s): Z90.49 - ACQUIRED ABSENCE OF OTHER SPECIFIED PARTS OF DIGESTIVE TRACT SNOMED Code(s): 255260943
[2020-05-11] MEDS: MELATONIN 5 MG TABLET PO SCH (20:59)
[2020-05-11] MEDS: MIRTAZAPINE 45 MG TABLET PO SCH (20:59)
[2020-05-11] MEDS: DULoxetine HCL 60 MG CAPSULE.DR PO SCH (21:00)
[2020-05-11] MEDS: LATANOPROST 0.005% OPHTH DROPS 2.5 ML BTL BOTH EYES SCH (21:01)
[2020-05-12] MEDS: SODIUM CHLORIDE 0.9% 1,000 ML IV SCH ×2 (01:04→11:07)
[2020-05-12] MEDS: oxyCODONE-APAP 10-325MG 1 EACH TAB PO PRN ×2 (01:07→09:07)
[2020-05-12] MEDS: KETOROLAC 30 MG/ML 1 ML VIAL IVP SCH ×3 (01:08→12:05)
[2020-05-12] MEDS: LACTATED RINGERS 1,000 ML IV SCH (01:55)
--- NOTE | 2020-05-12 02:09 | P.PN ---
Subjective Progress Note Date: 05/11/20 Principal diagnosis: S/p laparoscopic sigmoid colectomy Ms. Christine is a 79-year-old female with a past medical history of fibromyalgia, GERD, hyperlipidemia, memory impairment, DJD being followed by Dr. Hill Mata patient, underwent robotic assisted laparoscopic sigmoid colectomy with low anterior resection by Dr. Slaughter . The patient tolerated the procedure well. She is currently postop day 2. Patient states that she has abdominal soreness. She had multiple loose stools this morning. Patient denies having any chest pain or palpitations. No cough or difficulty in breathing. On reviewing the patient's vitals she was afebrile saturating 94 on room air. On reviewing the patient's labs hemoglobin has been stable around 9.5, electrolytes within normal limits. On 05/10/2020 - patient is lying comfortably in bed appears to be in no acute distress. Patient had 3 bowel movements since this morning, dark in color looks like dried blood. Patient has been getting out of the bed by herself. Her diabetes is slowly being advanced and she is able to tolerate it. Patient denies having any chest pain or palpitations. she denies having any cough or difficulty in breathing, no lower extremity swelling. Vitals have been stable.labs from this morning show stable hemoglobin around 9.3. On 05/11/20 - Patient is lying comfortably in bed appears to be no acute distress. No acute events reported by nursing staff. Vitals are within normal limits. Patient denies having any chest pain or palpitations, no difficulty in breathing or cough. She states complaining of mild abdominal soreness, pain medications are being adjusted by primary care. Active Medications Atorvastatin Calcium (Lipitor) 40 mg PO DAILY [facility] Last Admin: 05/11/20 07:27 Dose: 40 mg Documented by: Buspirone HCl (Buspar) 20 mg PO BID [facility] Last Admin: 05/11/20 21:00 Dose: 20 mg Documented by: Dicyclomine HCl (Bentyl) 20 mg PO QID [facility] Last Admin: 05/11/20 21:00 Dose: 20 mg Documented by: Docusate Sodium (Colace) 100 mg PO DAILY [facility] Last Admin: 05/11/20 07:27 Dose: 100 mg Documented by: Dorzolamide/Timolol (Cosopt) 1 drops BOTH EYES BID [facility] Last Admin: 05/11/20 21:01 Dose: 1 drops Documented by: Duloxetine HCl (Cymbalta) 60 mg PO [facility] Last Admin: 05/11/20 21:00 Dose: 60 mg Documented by: Heparin Sodium (Porcine) (Heparin) 5,000 unit SQ Q12HR [facility] Last Admin: 05/11/20 21:00 Dose: 5,000 unit Documented by: Hydromorphone HCl (Dilaudid) 1 mg IVP Q3HR PRN PRN Reason: Severe Pain Last Admin: 05/11/20 21:00 Dose: 1 mg Documented by: Lactated Ringer's (Lactated Ringers) 1,000 mls @ 20 mls/hr IV .Q24H [facility] Last Admin: 05/12/20 01:55 Dose: Not Given Documented by: Sodium Chloride (Saline 0.9%) 1,000 mls @ 100 mls/hr IV .Q10H [facility] Last Admin: 05/12/20 01:04 Dose: Not Given Documented by: Ketorolac Tromethamine (Toradol) 15 mg IVP Q6HR [facility] Stop: 05/12/20 21:13 Last Admin: 05/12/20 01:08 Dose: 15 mg Documented by: Latanoprost (Xalatan 0.005%) 1 drops BOTH EYES [facility] Last Admin: 05/11/20 21:01 Dose: 1 drops Documented by: Lidocaine HCl (.Xylocaine 1% Inj (10mg/Ml) For Iv Start) 0.1 ml INTRADERMA PER PROTOCOL PRN PRN Reason: IV Start Last Admin: 05/08/20 09:50 Dose: 0.1 ml Documented by: Magnesium Oxide (Mag-Ox) 400 mg PO DAILY [facility] Last Admin: 05/11/20 07:27 Dose: 400 mg Documented by: Melatonin (Melatonin) 10 mg PO [facility] Last Admin: 05/11/20 20:59 Dose: 10 mg Documented by: Metoclopramide HCl (Reglan) 10 mg IVP Q6HR PRN PRN Reason: Nausea and Vomiting Mirtazapine (Remeron) 45 mg PO [facility] Last Admin: 05/11/20 20:59 Dose: 45 mg Documented by: Miscellaneous Information (Pharmacy To Dose Per Abx Ppx Guidelines) 1 each MISCELLANE DIRECTED PRN PRN Reason: Per Protocol Morphine Sulfate (Ms Contin) 30 mg PO Q8H PRN PRN Reason: Pain Last Admin: 05/11/20 21:00 Dose: 30 mg Documented by: Ondansetron HCl (Zofran) 4 mg IVP Q6HR PRN PRN Reason: Nausea And Vomiting Last Admin: 05/09/20 11:58 Dose: 4 mg Documented by: Oxycodone/Acetaminophen (Percocet 10-325) 1 each PO Q8HR PRN PRN Reason: Pain Last Admin: 05/12/20 01:07 Dose: 1 each Documented by: Pantoprazole Sodium (Protonix) 40 mg PO AC-BRKFST [facility] Last Admin: 05/11/20 07:28 Dose: 40 mg Documented by: Pregabalin (Lyrica) 25 mg PO BID [facility] Last Admin: 05/11/20 21:00 Dose: 25 mg Documented by: Tizanidine HCl (Zanaflex) 4 mg PO TID PRN PRN Reason: Pain Last Admin: 05/09/20 01:46 Dose: 4 mg Documented by: Objective - Vital Signs Vital signs: Vital Signs Temp 98.3 F 05/11/20 07:00 Pulse 73 05/11/20 07:00 Resp 17 05/11/20 07:00 BP 100/58 05/11/20 07:00 Pulse Ox 90 L 05/11/20 07:00 Intake & Output 05/10/20 05/11/20 05/11/20 18:59 06:59 18:59 Intake Total 320 Output Total 500 Balance -180 Intake: Oral 320 Output: Urine 500 Other: Voiding Method Toilet Toilet Toilet - Exam PHYSICAL EXAM General: The patient is awake and alert, no acute distress HEENT: No pallor, no icterus, Cardiovascular: There is a regular rate and rhythm. No murmur, rub or gallop is appreciated. Respiratory: Lungs are clear to auscultation, respirations are non-labored, breath sounds are equal. Decreased at the lower lung bases. Gastrointestinal: Soft, non-distended, non-tender abdomen . There is no rebound or guarding present. Extremities: Mild pedal edema. Neurological: A&O x 3. No obvious motor or sensory or focal deficits. Skin: Skin is warm and dry and no rashes or lesions are noted. Psychiatric: Cooperative, appropriate mood & affect, normal judgment. - Labs CBC & Chem 7: 05/11/20 10:24 05/10/20 07:03 Labs: Abnormal Lab Results - Last 24 Hours (Table) 05/11/20 Range/Units 10:24 WBC 3.5 L (3.8-10.6) k/uL RBC 3.68 L (3.80-5.40) m/uL Hgb 9.8 L (11.4-16.0) gm/dL Hct 31.3 L (34.0-46.0) % Plt Count 127 L (150-450) k/uL Assessment and Plan Assessment: ASSESSMENT Status post robotic assisted laparoscopic sigmoid colectomy with low anterior resection Anemia, normocytic anemia of chronic disease History of fibromyalgia GERD Hyperlipidemia Memory impairment DJD Obstructive sleep apnea History of chronic low back pain History of anxiety with depression History of panic disorder History of bipolar disorder History of nicotine dependence PLAN: Continue with the current medication regimen. Encouraged patient to continue with incentive spirometry and ambulation. DVT prophylaxis on heparin. Further recommendations to follow depending on the progress of the patient.
[2020-05-12 02:44] VITALS: PULSE 85
[2020-05-12] MEDS: HYDROmorphone 1 MG/ML 1 ML SYRINGE IVP PRN (05:02)
[2020-05-12 07:48] VITALS: BP 135/61; RESP 17; TEMP 98.6
[2020-05-12] MEDS: HEPARIN SODIUM,PORCINE 5,000 UNIT/ML 1 ML VIAL SQ SCH (09:06)
[2020-05-12] MEDS: DOCUSATE 100 MG CAP PO SCH (09:06)
[2020-05-12] MEDS: ATORVASTATIN 40 MG TAB PO SCH (09:07)
[2020-05-12] MEDS: DICYCLOMINE 20 MG TAB PO SCH ×2 (09:07→12:05)
[2020-05-12] MEDS: PREGABALIN 25 MG CAP PO SCH (09:07)
[2020-05-12] MEDS: MAGNESIUM OXIDE 400 MG TAB PO SCH (09:07)
[2020-05-12] MEDS: busPIRone HCl 10 MG TAB PO SCH (09:07)
[2020-05-12] MEDS: PANTOPRAZOLE 40 MG TABLET PO SCH (09:07)
[2020-05-12] MEDS: DORZOLAMIDE-TIMOLOL 2.23%/0.68 10ML BTL BOTH EYES SCH (09:10)
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
== END 2020-05-12 14:48 | disposition home health service (06) | DRG 331 ==
LOC: 2ORMAIN 09:03 → 4SSUR 15:48
PROVIDERS: ADMIT Surgery Plastic and Reconstructive Surgery; ATTEND Surgery Plastic and Reconstructive Surgery
PROC: 8E0W4CZ Robotic Assisted Procedure of Trunk Region, Percutaneous Endoscopic Approach (ICD-10-PCS; principal; 2020-05-08 11:20)
PROC: 0DJD8ZZ Inspection of Lower Intestinal Tract, Via Natural or Artificial Opening Endoscopic (ICD-10-PCS; principal; 2020-05-08 11:20)
PROC: 3E1M38X Irrigation of Peritoneal Cavity using Irrigating Substance, Percutaneous Approach, Diagnostic (ICD-10-PCS; principal; 2020-05-08 11:20)
PROC: 0DTN4ZZ Resection of Sigmoid Colon, Percutaneous Endoscopic Approach (ICD-10-PCS; principal; 2020-05-08 11:20)
DX: K57.32 Diverticulitis of large intestine without perforation or abscess without bleeding (principal); E11.36 Type 2 diabetes mellitus with diabetic cataract; D63.8 Anemia in other chronic diseases classified elsewhere; S06.9X0S Unspecified intracranial injury without loss of consciousness, sequela; E11.39 Type 2 diabetes mellitus with other diabetic ophthalmic complication; H40.9 Unspecified glaucoma; F31.9 Bipolar disorder, unspecified; N83.291 Other ovarian cyst, right side; K58.1 Irritable bowel syndrome with constipation; F41.0 Panic disorder [episodic paroxysmal anxiety]; H42 Glaucoma in diseases classified elsewhere; H26.9 Unspecified cataract; K21.9 Gastro-esophageal reflux disease without esophagitis; R41.3 Other amnesia; G89.4 Chronic pain syndrome; M79.7 Fibromyalgia; G47.33 Obstructive sleep apnea (adult) (pediatric); E78.5 Hyperlipidemia, unspecified; M54.5 Low back pain; M19.90 Unspecified osteoarthritis, unspecified site; Z79.82 Long term (current) use of aspirin; Z79.899 Other long term (current) drug therapy; Z87.891 Personal history of nicotine dependence; Z87.828 Personal history of other (healed) physical injury and trauma; Z98.42 Cataract extraction status, left eye; Z90.710 Acquired absence of both cervix and uterus; Z96.653 Presence of artificial knee joint, bilateral; Z87.42 Personal history of other diseases of the female genital tract; Z98.1 Arthrodesis status; Z86.79 Personal history of other diseases of the circulatory system; Z98.890 Other specified postprocedural states; Z86.59 Personal history of other mental and behavioral disorders; V49.9XXS Car occupant (driver) (passenger) injured in unspecified traffic accident, sequela; Z88.6 Allergy status to analgesic agent; Z88.5 Allergy status to narcotic agent; Z88.7 Allergy status to serum and vaccine; Z80.9 Family history of malignant neoplasm, unspecified
CPT/HCPCS: 80048; 80053; 85025; 86850; 86900; 86901; 88108; 88305; 88307

== ENCOUNTER 2020-07-20 09:10 | Emergency (ER) | payer MEDICARE ==
[2020-07-20] MEDS ORDERED: KETOROLAC 15 MG/ML 1 ML VIAL IM STA (10:17)
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
[2020-07-20] MEDS ORDERED: SODIUM CHLORIDE 0.9% 1,000 ML IV ONE (10:26)
[2020-07-20] MEDS ORDERED: KETOROLAC 15 MG/ML 1 ML VIAL IVP STA (10:27)
[2020-07-20 11:39] LABS: Basophils % (A) 0 %; Eosinophils # (A) 0.1 k/uL (0-0.7); Eosinophils % (A) 2 %; HCT 37.2 % (34.0-46.0); HGB 11.2 gm/dL (11.4-16.0); Hypochromasia Marked; Lymphocytes # (A) 1.4 k/uL (1.0-4.8); Lymphocytes % (A) 30 %; MCH 26.3 pg (25.0-35.0); MCHC 30.2 g/dL (31.0-37.0); MCV 86.9 fL (80.0-100.0); Mean Platelet Volume 7.9; Monocytes # (A) 0.2 k/uL (0-1.0); Monocytes % (A) 5 %; Neutrophils # (A) 2.7 k/uL (1.3-7.7); Neutrophils % (A) 59 %; Platelet Count 193 k/uL (150-450); RBC 4.28 m/uL (3.80-5.40); RDW 14.4 % (11.5-15.5); WBC 4.6 k/uL (3.8-10.6)
[2020-07-20 11:45] LABS: Albumin 4.5 g/dL (3.5-5.0); Calcium 9.3 mg/dL (8.4-10.2); Potassium 3.7 mmol/L (3.5-5.1); Total Bilirubin 0.3 mg/dL (0.2-1.3); Total Protein 8.1 g/dL (6.3-8.2)
[2020-07-20 11:50] LABS: INR 0.9 (<1.2); Prothrombin Time 9.6 sec (9.0-12.0)
[2020-07-20 11:52] LABS: Partial Thromboplastin Time 19.3 sec (22.0-30.0)
[2020-07-20 12:16] VITALS: BP 132/78; PULSE 89; RESP 16; TEMP 97.8
== END 2020-07-20 12:15 | disposition home or self-care (01) ==
LOC: EC 09:10
DX: R53.83 Other fatigue (principal); G89.29 Other chronic pain; M25.562 Pain in left knee; M25.561 Pain in right knee; M54.9 Dorsalgia, unspecified; M79.7 Fibromyalgia; M19.90 Unspecified osteoarthritis, unspecified site; E78.5 Hyperlipidemia, unspecified; K21.9 Gastro-esophageal reflux disease without esophagitis; H40.9 Unspecified glaucoma; G47.30 Sleep apnea, unspecified; F41.9 Anxiety disorder, unspecified; Z79.82 Long term (current) use of aspirin; Z79.899 Other long term (current) drug therapy; Z79.890 Hormone replacement therapy; Z88.5 Allergy status to narcotic agent; Z88.8 Allergy status to other drugs, medicaments and biological substances; Z87.891 Personal history of nicotine dependence; Z96.653 Presence of artificial knee joint, bilateral; Z86.73 Personal history of transient ischemic attack (TIA), and cerebral infarction without residual deficits; Z99.89 Dependence on other enabling machines and devices
CPT/HCPCS: 36415; 80053; 85025; 85610; 85730; 99285; 96374; 96361; J1885

== ENCOUNTER → 2020-09-15 | Outpatient (CLI) | payer MEDICARE | END | disposition home or self-care (01) | LOC: LABWHC1 15:46 | PROVIDERS: ATTEND Nurse Practitioner | DX: U07.1 COVID-19 (principal) | CPT/HCPCS: U0003; C9803 ==

== ENCOUNTER → 2020-10-05 | Outpatient (CLI) | payer MEDICARE ==
[2020-10-05 15:19] LABS: Basophils % (A) 1 %; Eosinophils # (A) 0.1 k/uL (0-0.7); Eosinophils % (A) 1 %; HCT 35.2 % (34.0-46.0); HGB 11.1 gm/dL (11.4-16.0); Hypochromasia Slight; Lymphocytes # (A) 1.6 k/uL (1.0-4.8); Lymphocytes % (A) 38 %; MCH 26.4 pg (25.0-35.0); MCHC 31.5 g/dL (31.0-37.0); MCV 83.9 fL (80.0-100.0); Mean Platelet Volume 7.6; Monocytes # (A) 0.3 k/uL (0-1.0); Monocytes % (A) 7 %; Neutrophils # (A) 2.1 k/uL (1.3-7.7); Neutrophils % (A) 50 %; Platelet Count 175 k/uL (150-450); RBC 4.19 m/uL (3.80-5.40); WBC 4.1 k/uL (3.8-10.6)
[2020-10-06 04:04] LABS: African American GFR (CKD) 62.5 (60.0-200.0); Albumin 4.5 g/dL (3.80-4.90); Albumin/Globulin Ratio 1.61 (1.60-3.17); Chol/HDL Ratio 5.49; Globulin 2.8 g/dL (1.6-3.3); LDL Cholesterol,Calculated 124.6 mg/dL (0.0-131.0); Non-African American GFR(CKD) 53.9 (60.0-200.0); Potassium 4.6 mmol/L (3.5-5.5); Total Bilirubin 0.2 mg/dL (0.2-1.2); Total Protein 7.3 g/dL (6.2-8.2); VLDL Calculation 68.4 mg/dL (5.00-40.00)
[2020-10-06 04:16] LABS: T4, Free (Free Thyroxine) 0.9 ng/dL (0.80-1.80)
== END | disposition home or self-care (01) ==
LOC: LABWHC1 14:03
PROVIDERS: ATTEND Family Medicine
DX: E78.2 Mixed hyperlipidemia (principal)
CPT/HCPCS: 36415; 80053; 80061; 84439; 84443; 85025

== ENCOUNTER 2020-11-23 13:03 | Emergency (ER) | payer MEDICARE ==
[2020-11-23 13:12] VITALS: BP 113/54; PULSE 105; RESP 18; TEMP 98.7
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
[2020-11-23] MEDS ORDERED: HYDROmorphone 1 MG/ML 1 ML SYRINGE IM STA (13:34)
--- NOTE | 2020-11-23 14:03 | XR ---
EXAMINATION TYPE: XR Hip LT and AP Pelvis DATE OF EXAM: 11/23/2020 COMPARISON: None HISTORY: Fall, pain TECHNIQUE: AP pelvis and 2 view left hip FINDINGS: Femoral heads articulate with the acetabulum. Sacroiliac joints and symphysis pubis are int act. No acute fractures are evident. Postsurgical changes are within the lumbar spine Left femoral head articulates with the acetabulum. Joint space appears preserved. No acute fractures evident. IMPRESSION: 1. Normal left hip
--- NOTE | 2020-11-23 14:04 | XR ---
Right shoulder HISTORY: Trauma and pain 3 views of the right shoulder, correlation prior exam 06/17/2019 Acromion clavicular joint shows arthropathy. Bone mineralization is slightly reduced. There is overly ing artifact present. Right lung apex as visualized is normal. Alignment and joint spaces are stable. There is marginal spurring at the glenohumeral joint, suspect pseudocysts in the humeral head. Dista l acromion shows possible postop appearance, correlate for acromioplasty. IMPRESSION: No fracture or dislocation. Osteoarthritic changes. Correlate for prior surgery.
--- NOTE | 2020-11-23 14:04 | XR ---
EXAMINATION TYPE: XR knee complete LT DATE OF EXAM: 11/23/2020 COMPARISON: 08/21/2017 HISTORY: Fall, pain TECHNIQUE: Left knee is examined in 3 projections FINDINGS: Tibial and femoral components are present. No joint effusion is evident. No acute fractures are evident. IMPRESSION: 1. Normal left knee with the left knee prosthesis. 2. No acute osseous abnormality
== END 2020-11-23 14:31 | disposition home or self-care (01) ==
LOC: EC 13:03
DX: M25.552 Pain in left hip (principal); F41.9 Anxiety disorder, unspecified; F31.9 Bipolar disorder, unspecified; F41.0 Panic disorder [episodic paroxysmal anxiety]; G47.33 Obstructive sleep apnea (adult) (pediatric); Z79.899 Other long term (current) drug therapy; Z88.6 Allergy status to analgesic agent; Z88.8 Allergy status to other drugs, medicaments and biological substances; Z99.89 Dependence on other enabling machines and devices; Z98.41 Cataract extraction status, right eye; Z96.653 Presence of artificial knee joint, bilateral; Z86.73 Personal history of transient ischemic attack (TIA), and cerebral infarction without residual deficits; W06.XXXA Fall from bed, initial encounter
CPT/HCPCS: 73502; 73030; 73562; 99284; 96372; J1170

== ENCOUNTER 2021-02-10 07:05 | Emergency (ER) | payer MEDICARE ==
[2021-02-10 07:09] VITALS: BP 126/69; PULSE 101; RESP 18; TEMP 98.1
[2021-02-10] MEDS ORDERED: ACET/COD 300 MG/30 MG STARTER PACK 6 TAB BTL PO STA (07:25)
[2021-02-10] MEDS ORDERED: HYDROmorphone 0.5 MG/0.5 ML SYRINGE IM STA (07:25)
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
== END 2021-02-10 07:33 | disposition home or self-care (01) ==
LOC: EC 07:05
DX: G89.29 Other chronic pain (principal); M54.5 Low back pain; E78.5 Hyperlipidemia, unspecified; M19.90 Unspecified osteoarthritis, unspecified site; M79.7 Fibromyalgia; K21.9 Gastro-esophageal reflux disease without esophagitis; G47.30 Sleep apnea, unspecified; F41.9 Anxiety disorder, unspecified; F32.9 Major depressive disorder, single episode, unspecified; Z86.73 Personal history of transient ischemic attack (TIA), and cerebral infarction without residual deficits; Z79.82 Long term (current) use of aspirin
CPT/HCPCS: 99283; 96372; J1170

== ENCOUNTER 2021-02-13 15:07 | Inpatient (IN) | payer MEDICARE ==
[2021-02-13] MEDS ORDERED: HYDROmorphone 1 MG/ML 1 ML SYRINGE IM STA (15:46)
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
[2021-02-13] MEDS ORDERED: NALOXONE 0.4 MG/ML 1 ML VIAL IV PRN (17:57)
[2021-02-13] MEDS ORDERED: oxyCODONE-APAP 10-325MG 1 EACH TAB PO PRN (17:58)
[2021-02-13] MEDS ORDERED: HYDROmorphone 1 MG/ML 1 ML SYRINGE IVP STA (18:39)
[2021-02-13] MEDS ORDERED: DICYCLOMINE 10 MG CAP PO PRN (21:30)
[2021-02-13] MEDS ORDERED: LORazepam 0.5 MG TAB PO PRN (21:30)
[2021-02-13] MEDS ORDERED: FLUTICASONE 50MCG/SPRAY NASAL 16GM EA NOSTRIL PRN (21:30)
[2021-02-13] MEDS: MORPHINE SULFATE IR 15 MG TABLET PO SCH ×2 (21:58→22:23)
[2021-02-13 22:11] LABS: Potassium 3.8 mmol/L (3.5-5.1)
[2021-02-13 22:12] LABS: ALT 23 U/L (4-34); AST 35 U/L (14-36); African American GFR (CKD) 84 (>60 ml/min/1.73 sqM); Albumin 4.7 g/dL (3.5-5.0); Albumin/Globulin Ratio 1.3; Alkaline Phosphatase 72 U/L (38-126); Anion Gap 9 mmol/L; Blood Urea Nitrogen 16 mg/dL (7-17); Calcium 9.5 mg/dL (8.4-10.2); Carbon Dioxide 29 mmol/L (22-30); Chloride 103 mmol/L (98-107); Globulin 3.6 g/dL; Glucose 115 mg/dL (74-99); Non-African American GFR(CKD) 73 (>60 ml/min/1.73 sqM); Sodium 141 mmol/L (137-145); Total Bilirubin 0.3 mg/dL (0.2-1.3); Total Protein 8.3 g/dL (6.3-8.2)
[2021-02-13 22:14] LABS: Appearance,Urine Clear (Clear); Bacteria,Urine Rare /hpf; Bilirubin,Urine Negative (Negative); Blood,Urine Negative (Negative); Color,Urine Yellow; Glucose,Urine (UA) Negative (Negative); Hyaline Casts,Urine 23 /lpf (0-2); Ketones,Urine Negative (Negative); Leukocyte Esterase,Urine Trace (Negative); Mucus,Urine Many /hpf; Nitrite,Urine Negative (Negative); PH, Urine 5.5 (5.0-8.0); Protein,Urine Trace (Negative); RBC,Urine <1 /hpf (0-5); Specific Gravity,Urine 1.022 (1.001-1.035); Squamous Epithelial Cell,Urine 5 /hpf (0-4); Urobilinogen,Urine <2.0 mg/dL (<2.0); WBC,Urine 5 /hpf (0-5)
[2021-02-13] MEDS: busPIRone HCl 10 MG TAB PO SCH (22:14)
[2021-02-13] MEDS: PREGABALIN 25 MG CAP PO SCH (22:14)
[2021-02-13] MEDS: DULoxetine HCL 60 MG CAPSULE.DR PO SCH (22:15)
[2021-02-13] MEDS: LATANOPROST 0.005% OPHTH DROPS 2.5 ML BTL BOTH EYES SCH (22:15)
[2021-02-13] MEDS: HEPARIN SODIUM,PORCINE/PF 5,000 UNIT/0.5 ML SYRINGE SQ SCH (22:15)
[2021-02-13] MEDS: DORZOLAMIDE-TIMOLOL 2.23%/0.68 10ML BTL BOTH EYES SCH (22:15)
[2021-02-13] MEDS: MIRTAZAPINE 45 MG TABLET PO SCH (22:16)
[2021-02-13] MEDS: PANTOPRAZOLE 40 MG TABLET PO SCH (22:16)
[2021-02-13 22:23] LABS: Amphetamine Screen,Urine Not Detected (NotDetected); Barbiturate Screen,Urine Not Detected (NotDetected); Benzodiazepines Screen,Urine Not Detected (NotDetected); Cocaine Screen,Urine Not Detected (NotDetected); Methadone Screen, Urine Not Detected (NotDetected); Opiate Screen,Urine Detected (NotDetected); Oxycodone Screen, Urine Not Detected (NotDetected); Phencyclidine Screen,Urine Not Detected (NotDetected); Tricyclic Antidepressant,Urine Not Detected (NotDetected); Urn Cannabinoid Scrn Not Detected (NotDetected)
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
[2021-02-13] MEDS: HYDROmorphone 0.5 MG/0.5 ML SYRINGE IVP PRN (23:27)
[2021-02-14] MEDS: tiZANidine 4 MG TAB PO SCH ×2 (02:34→08:22)
[2021-02-14] MEDS: HYDROmorphone 0.5 MG/0.5 ML SYRINGE IVP PRN ×3 (05:56→18:01)
[2021-02-14] MEDS: PREGABALIN 25 MG CAP PO SCH ×2 (08:21→20:32)
[2021-02-14] MEDS: busPIRone HCl 10 MG TAB PO SCH ×2 (08:21→20:31)
[2021-02-14] MEDS: MORPHINE SULFATE IR 15 MG TABLET PO SCH ×4 (08:21→20:33)
[2021-02-14] MEDS: PANTOPRAZOLE 40 MG TABLET PO SCH (08:22)
[2021-02-14] MEDS: DORZOLAMIDE-TIMOLOL 2.23%/0.68 10ML BTL BOTH EYES SCH ×2 (08:22→20:32)
[2021-02-14] MEDS: HEPARIN SODIUM,PORCINE/PF 5,000 UNIT/0.5 ML SYRINGE SQ SCH ×2 (08:22→20:32)
[2021-02-14 09:57] LABS: Basophils # (A) 0.03 X 10*3/uL (0.00-0.10); Basophils % (A) 0.5 %; Eosinophils # (A) 0.09 X 10*3/uL (0.04-0.35); Eosinophils % (A) 1.4 %; HCT 37.6 % (37.2-46.3); HGB 11.2 g/dL (12.0-15.0); Lymphocytes # (A) 2.27 X 10*3/uL (0.90-5.00); Lymphocytes % (A) 35.9 %; MCH 25.9 pg (27.0-32.0); MCHC 29.8 g/dL (32.0-37.0); Mean Platelet Volume 11.4 fL (9.5-12.2); Monocytes # (A) 0.63 X 10*3/uL (0.20-1.00); Neutrophils # (A) 3.26 X 10*3/uL (1.80-7.70); Neutrophils % (A) 51.6 %; Platelet Count 192 X 10*3/uL (140-440); RBC 4.32 X 10*6/uL (4.10-5.20); RDW 14.6 % (11.5-14.5); WBC 6.32 X 10*3/uL (4.50-10.00)
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
--- NOTE | 2021-02-14 16:13 | XR ---
EXAMINATION TYPE: XR chest 1V portable DATE OF EXAM: 02/14/2021 COMPARISON: 12/08/2019 HISTORY: Chest pain short of breath TECHNIQUE: FINDINGS: Heart and mediastinum are normal. Lungs are clear. Diaphragm is normal. Bony thorax is inta ct. IMPRESSION: Normal chest. No change.
[2021-02-14] MEDS: DULoxetine HCL 60 MG CAPSULE.DR PO SCH (20:32)
[2021-02-14] MEDS: LATANOPROST 0.005% OPHTH DROPS 2.5 ML BTL BOTH EYES SCH (20:32)
[2021-02-14] MEDS: MIRTAZAPINE 45 MG TABLET PO SCH (21:05)
[2021-02-14] MEDS: LORazepam 0.5 MG TAB PO PRN (21:05)
[2021-02-15] MEDS: HYDROmorphone 0.5 MG/0.5 ML SYRINGE IVP PRN ×4 (00:37→19:46)
[2021-02-15] MEDS: LORazepam 0.5 MG TAB PO PRN ×3 (03:22→16:51)
[2021-02-15] MEDS: PREGABALIN 25 MG CAP PO SCH ×2 (08:38→19:47)
[2021-02-15] MEDS: MORPHINE SULFATE IR 15 MG TABLET PO SCH ×4 (08:38→22:10)
[2021-02-15] MEDS: busPIRone HCl 10 MG TAB PO SCH ×2 (08:38→19:47)
[2021-02-15] MEDS: HEPARIN SODIUM,PORCINE/PF 5,000 UNIT/0.5 ML SYRINGE SQ SCH ×2 (08:39→19:46)
[2021-02-15] MEDS: DORZOLAMIDE-TIMOLOL 2.23%/0.68 10ML BTL BOTH EYES SCH ×2 (08:39→19:47)
[2021-02-15] MEDS: tiZANidine 4 MG TAB PO SCH (08:39)
[2021-02-15] MEDS: PANTOPRAZOLE 40 MG TABLET PO SCH (08:39)
[2021-02-15 08:55] LABS: Basophils # (A) 0.03 X 10*3/uL (0.00-0.10); Basophils % (A) 0.6 %; Eosinophils # (A) 0.11 X 10*3/uL (0.04-0.35); Eosinophils % (A) 2.1 %; Lymphocytes # (A) 2.27 X 10*3/uL (0.90-5.00); Lymphocytes % (A) 42.6 %; MCH 26.4 pg (27.0-32.0); MCHC 30.6 g/dL (32.0-37.0); MCV 86.5 fL (80.0-97.0); Mean Platelet Volume 11.3 fL (9.5-12.2); Monocytes # (A) 0.54 X 10*3/uL (0.20-1.00); Monocytes % (A) 10.1 %; Neutrophils # (A) 2.36 X 10*3/uL (1.80-7.70); Neutrophils % (A) 44.2 %; Platelet Count 193 X 10*3/uL (140-440); RBC 4.16 X 10*6/uL (4.10-5.20); RDW 14.7 % (11.5-14.5); WBC 5.33 X 10*3/uL (4.50-10.00)
[2021-02-15 09:51] LABS: African American GFR (CKD) 81.8 (60.0-200.0); Anion Gap 6.6 mmol/L (4.00-12.00); Calcium 9.1 mg/dL (8.7-10.3); Carbon Dioxide 30.4 mmol/L (21.6-31.8); Non-African American GFR(CKD) 70.6 (60.0-200.0); Potassium 4.4 mmol/L (3.5-5.5)
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
[2021-02-15] MEDS: LATANOPROST 0.005% OPHTH DROPS 2.5 ML BTL BOTH EYES SCH (19:47)
[2021-02-15] MEDS: MIRTAZAPINE 45 MG TABLET PO SCH (19:47)
[2021-02-15] MEDS: DULoxetine HCL 60 MG CAPSULE.DR PO SCH (19:47)
[2021-02-16] MEDS: HYDROmorphone 0.5 MG/0.5 ML SYRINGE IVP PRN ×3 (02:23→14:43)
[2021-02-16] MEDS: LORazepam 0.5 MG TAB PO PRN ×2 (04:25→11:01)
[2021-02-16 06:08] LABS: Basophils % (A) 1 %; Eosinophils # (A) 0.1 k/uL (0-0.7); Eosinophils % (A) 3 %; HCT 35.8 % (34.0-46.0); HGB 11.5 gm/dL (11.4-16.0); Lymphocytes # (A) 1.8 k/uL (1.0-4.8); Lymphocytes % (A) 38 %; MCH 27.3 pg (25.0-35.0); MCHC 32.1 g/dL (31.0-37.0); MCV 84.9 fL (80.0-100.0); Mean Platelet Volume 7.6; Monocytes # (A) 0.3 k/uL (0-1.0); Monocytes % (A) 7 %; Neutrophils # (A) 2.4 k/uL (1.3-7.7); Neutrophils % (A) 50 %; Platelet Count 194 k/uL (150-450); RBC 4.22 m/uL (3.80-5.40); RDW 14.2 % (11.5-15.5); WBC 4.8 k/uL (3.8-10.6)
[2021-02-16 06:16] LABS: ALT 16 U/L (4-34); AST 23 U/L (14-36); African American GFR (CKD) 64 (>60 ml/min/1.73 sqM); Albumin 4.1 g/dL (3.5-5.0); Albumin/Globulin Ratio 1.3; Alkaline Phosphatase 84 U/L (38-126); Anion Gap 5 mmol/L; Blood Urea Nitrogen 25 mg/dL (7-17); Calcium 9.7 mg/dL (8.4-10.2); Carbon Dioxide 30 mmol/L (22-30); Chloride 104 mmol/L (98-107); Globulin 3.2 g/dL; Glucose 108 mg/dL (74-99); Magnesium 2.2 mg/dL (1.6-2.3); Non-African American GFR(CKD) 55 (>60 ml/min/1.73 sqM); Potassium 4.6 mmol/L (3.5-5.1); Sodium 139 mmol/L (137-145); Total Bilirubin 0.2 mg/dL (0.2-1.3); Total Protein 7.3 g/dL (6.3-8.2)
[2021-02-16] MEDS: PREGABALIN 25 MG CAP PO SCH (08:02)
[2021-02-16] MEDS: busPIRone HCl 10 MG TAB PO SCH (08:02)
[2021-02-16] MEDS: MORPHINE SULFATE IR 15 MG TABLET PO SCH ×2 (08:02→13:15)
[2021-02-16] MEDS: DORZOLAMIDE-TIMOLOL 2.23%/0.68 10ML BTL BOTH EYES SCH (08:03)
[2021-02-16] MEDS: PANTOPRAZOLE 40 MG TABLET PO SCH (08:03)
[2021-02-16] MEDS: HEPARIN SODIUM,PORCINE/PF 5,000 UNIT/0.5 ML SYRINGE SQ SCH (08:03)
[2021-02-16] MEDS: tiZANidine 4 MG TAB PO SCH (08:04)
[2021-02-16 15:41] VITALS: BP 115/73; PULSE 95; RESP 16; TEMP 98.1
--- NOTE | 2021-02-17 22:36 | P.DS ---
Providers Date of admission: 02/14/21 14:59 Expected date of discharge: 02/16/21 Attending physician: Hill Mata Primary care physician: Hill Mata Hospital Course: 80-year-old female was amended to the hospital with acute on chronic pain and discomfort syndrome. Patient had extensive diagnostic workup in emergency department no acute findings noted. Patient had significant left-sided sciatic like pain syndrome was treated with analgesics therapy. Noted with history patient possible going through with narcotic withdrawal out of long acting opioids. Diagnostic testing and vital signs within normal limits. Patient to follow up with [facility] for chronic pain management. Patient to follow up with our services in one to 2 days. Patient stable upon discharge. Assessment: Acute on chronic pain syndrome possible narcotic withdrawal History of severe degenerative joint disease Fibromyalgia Gerd/reflux Hyperlipidemia memory impairment History of sleep apnea history of chronic back pain Mixed anxiety and depression bipolar disorder full code Health Concerns: Multiple comorbidities poor medical compliance history of bipolar anxiety and depression Pertinent Studies: Chest x-ray no acute changes Procedures: None performed Patient Condition at Discharge: Stable Plan - Discharge Summary Discharge Rx Participant: No New Discharge Prescriptions: Continue Dorzolamide HCl/Timolol Maleat [Cosopt Eye Drops] 1 drop BOTH EYES BID Pregabalin [Lyrica] 25 mg PO BID Latanoprost/Pf [Latanoprost 0.005% Eye Drop] 1 drop BOTH EYES HS busPIRone HCl [Buspar] 20 mg PO BID 30 Days tab DULoxetine HCL [Cymbalta] 60 mg PO HS #30 capsule. Mirtazapine [Remeron] 45 mg PO HS #30 tablet Dicyclomine [Bentyl] 20 mg PO TID oxyCODONE-APAP 10-325MG [Percocet 10-325 mg] 1 tab PO Q4H PRN PRN Reason: Pain Pantoprazole [Protonix] 40 mg PO DAILY tiZANidine [Zanaflex] 4 mg PO DAILY Morphine Sulfate Ir [MSIR] 15 mg PO QID Fluticasone Nasal [place] [Flonase Nasal [place]] 2 spr EA NOSTRIL PRN PRN Reason: Cold Symptoms Discharge Medication List Dorzolamide HCl/Timolol Maleat [Cosopt Eye Drops] 1 drop BOTH EYES BID 03/02/16 [History] Pregabalin [Lyrica] 25 mg PO BID 06/07/18 [History] Latanoprost/Pf [Latanoprost 0.005% Eye Drop] 1 drop BOTH EYES HS 08/28/19 [History] DULoxetine HCL [Cymbalta] 60 mg PO HS #30 capsule. 09/04/19 [Rx] Mirtazapine [Remeron] 45 mg PO HS #30 tablet 09/04/19 [Rx] busPIRone HCl [Buspar] 20 mg PO BID 30 Days tab 09/04/19 [Rx] Dicyclomine [Bentyl] 20 mg PO TID 12/09/19 [History] oxyCODONE-APAP 10-325MG [Percocet 10-325 mg] 1 tab PO Q4H PRN 03/02/20 [History] Pantoprazole [Protonix] 40 mg PO DAILY 04/30/20 [History] Fluticasone Nasal [place] [Flonase Nasal [place]] 2 spr EA NOSTRIL PRN 02/13/21 [History] Morphine Sulfate Ir [MSIR] 15 mg PO QID 02/13/21 [History] tiZANidine [Zanaflex] 4 mg PO DAILY 02/13/21 [History] Follow up Appointment(s)/Referral(s): Chris Caldwell, TONY [Nurse Practitioner] - 02/19/21 1:30 pm Patient Instructions/Handouts: Chronic Pain (DC) Activity/Diet/Wound Care/Special Instructions: per Marjorie Mata's office to set up Home Care to come to the house Discharge Disposition: HOME WITH HOME HEALTH SERVICES
== END 2021-02-16 16:00 | disposition home health service (06) | DRG 91 ==
LOC: EC 15:07 → 6NMEDSUR 17:57 → OBSVTOIN 02-14 14:59
PROVIDERS: ADMIT Family Medicine; ATTEND Family Medicine
DX: G89.4 Chronic pain syndrome (principal); G93.41 Metabolic encephalopathy; F11.23 Opioid dependence with withdrawal; F31.30 Bipolar disorder, current episode depressed, mild or moderate severity, unspecified; K57.92 Diverticulitis of intestine, part unspecified, without perforation or abscess without bleeding; E78.5 Hyperlipidemia, unspecified; F41.0 Panic disorder [episodic paroxysmal anxiety]; F41.8 Other specified anxiety disorders; G47.30 Sleep apnea, unspecified; K21.9 Gastro-esophageal reflux disease without esophagitis; M17.0 Bilateral primary osteoarthritis of knee; Z86.73 Personal history of transient ischemic attack (TIA), and cerebral infarction without residual deficits; M79.7 Fibromyalgia; H40.9 Unspecified glaucoma; N83.9 Noninflammatory disorder of ovary, fallopian tube and broad ligament, unspecified; H26.9 Unspecified cataract; Z98.42 Cataract extraction status, left eye; Z87.891 Personal history of nicotine dependence; Z90.710 Acquired absence of both cervix and uterus; Z20.822 Contact with and (suspected) exposure to COVID-19; Z96.653 Presence of artificial knee joint, bilateral; Z80.9 Family history of malignant neoplasm, unspecified; Z98.1 Arthrodesis status; R41.3 Other amnesia; T14.90XS Injury, unspecified, sequela; V89.2XXS Person injured in unspecified motor-vehicle accident, traffic, sequela
CPT/HCPCS: 71045; 80048; 80053; 80306; 81001; 83735; 85025; 85379; 85652; 86140; 87635; 96372; 99284

== ENCOUNTER 2021-03-18 20:36 | Observation (INO) | payer MEDICARE ==
[2021-03-18] MEDS ORDERED: SODIUM CHLORIDE 0.9% 1,000 ML IV STA (21:49)
[2021-03-18] MEDS ORDERED: MORPHINE SULFATE 4 MG/ML SYRINGE IV STA (21:49)
[2021-03-18] MEDS ORDERED: PANTOPRAZOLE 40 MG/10 ML VIAL IVP STA (21:49)
[2021-03-18] MEDS ORDERED: ONDANSETRON 4 MG/2 ML VIAL IVP STA (21:49)
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
[2021-03-18 22:44] LABS: Basophils % (A) 0 %; Eosinophils # (A) 0.1 k/uL (0-0.7); Eosinophils % (A) 2 %; HCT 34.6 % (34.0-46.0); HGB 11.8 gm/dL (11.4-16.0); Lymphocytes # (A) 2.3 k/uL (1.0-4.8); Lymphocytes % (A) 33 %; MCV 82.1 fL (80.0-100.0); Mean Platelet Volume 7.3; Monocytes # (A) 0.6 k/uL (0-1.0); Monocytes % (A) 8 %; Neutrophils # (A) 3.8 k/uL (1.3-7.7); Neutrophils % (A) 55 %; Platelet Count 217 k/uL (150-450); RBC 4.22 m/uL (3.80-5.40); RDW 14.1 % (11.5-15.5)
[2021-03-18 22:57] LABS: Albumin 4.2 g/dL (3.5-5.0); Calcium 9.3 mg/dL (8.4-10.2); Potassium 3.8 mmol/L (3.5-5.1); Total Bilirubin 0.4 mg/dL (0.2-1.3); Total Protein 7.6 g/dL (6.3-8.2)
[2021-03-18 23:01] LABS: Appearance,Urine Clear (Clear); Bilirubin,Urine Negative (Negative); Blood,Urine Negative (Negative); Color,Urine Yellow; Glucose,Urine (UA) Negative (Negative); Ketones,Urine Negative (Negative); Leukocyte Esterase,Urine Negative (Negative); Nitrite,Urine Negative (Negative); PH, Urine 5.5 (5.0-8.0); Protein,Urine Negative (Negative); Specific Gravity,Urine 1.018 (1.001-1.035); Urobilinogen,Urine <2.0 mg/dL (<2.0)
[2021-03-18] MEDS ORDERED: HYDROmorphone 1 MG/ML 1 ML SYRINGE IVP STA (23:42)
--- NOTE | 2021-03-18 23:48 | CT ---
EXAMINATION TYPE: CT abdomen pelvis w con DATE OF EXAM: 03/18/2021 COMPARISON: 04/27/2020 HISTORY: LLQ pain CT DLP: 1160.2 mGycm Automated exposure control for dose reduction was used. CONTRAST: Performed with IV Contrast, patient injected with 100 mL of Isovue 300. There is minimal subsegmental atelectasis at the lung bases. Unchanged. Heart size is normal. There i s no pericardial effusion. There are scattered cysts in the liver that measure up to 1 cm. Gallbl[address] r appears normal. The bile ducts are not dilated. Spleen stomach pancreas appear intact. There is no adrenal mass. Kidneys show satisfactory contrast opacification. There is no hydronephrosi s. Delayed images show normal renal excretion. There are small renal parapelvic cysts. There is no re troperitoneal adenopathy. There is multilevel posterior lumbar spine fusion surgery with metal artifa ct. The bladder distends smoothly. There is no inguinal hernia. There is no free fluid in the pelvis. Appendix is not seen. There is no sign of thickened appendix. There is no mesenteric edema. There is no ascites or free air. There is no bowel obstruction. There i s 3.8 cm thin wall cystic fluid collection in the pelvis on the right side. There is hysterectomy. Th ere are clips at the rectosigmoid junction. Lumbar vertebra have fairly normal alignment. There is no compression fracture. The bony pelvis is in tact. The hip joints are intact. IMPRESSION: There is some resection of the sigmoid colon compared to old exam. No evidence of diverticulitis. There is cyst in the pelvis on the right side slightly increased compared to old exam. This is probab ly ovarian cyst. No acute abnormality of the abdomen pelvis.
[2021-03-19] MEDS ORDERED: NALOXONE 0.4 MG/ML 1 ML VIAL IV PRN (00:14)
[2021-03-19] MEDS ORDERED: ONDANSETRON 4 MG/2 ML VIAL IVP PRN (00:14)
[2021-03-19] MEDS: SODIUM CHLORIDE 0.9% 1,000 ML IV SCH ×3 (00:42→18:54)
[2021-03-19] MEDS: HYDROmorphone 1 MG/ML 1 ML SYRINGE IVP PRN ×5 (03:09→23:49)
[2021-03-19] MEDS: PANTOPRAZOLE 40 MG/10 ML VIAL IV SCH (07:54)
[2021-03-19] MEDS ORDERED: FLUTICASONE 50MCG/SPRAY NASAL 16GM EA NOSTRIL PRN (08:50)
[2021-03-19] MEDS ORDERED: PANTOPRAZOLE 40 MG TABLET PO SCH (09:00)
[2021-03-19] MEDS: DICYCLOMINE 20 MG TAB PO SCH ×3 (09:07→21:02)
[2021-03-19] MEDS: MORPHINE SULFATE IR 15 MG TABLET PO SCH ×2 (09:07→17:16)
[2021-03-19] MEDS: PREGABALIN 25 MG CAP PO SCH ×2 (09:07→19:17)
[2021-03-19] MEDS: busPIRone HCl 10 MG TAB PO SCH ×2 (13:29→21:02)
[2021-03-19] MEDS: tiZANidine 4 MG TAB PO SCH ×2 (13:29→19:18)
[2021-03-19] MEDS: oxyCODONE-APAP 10-325MG 1 EACH TAB PO PRN ×3 (13:29→21:01)
[2021-03-19] MEDS: DORZOLAMIDE-TIMOLOL 2.23%/0.68 10ML BTL BOTH EYES SCH ×2 (16:24→21:05)
[2021-03-19] MEDS: MIRTAZAPINE 45 MG TABLET PO SCH (19:18)
[2021-03-19] MEDS: MELATONIN 3 MG TABLET PO SCH (21:04)
[2021-03-19] MEDS: LATANOPROST 0.005% OPHTH DROPS 2.5 ML BTL BOTH EYES SCH (21:05)
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
[2021-03-20] MEDS: MORPHINE SULFATE IR 15 MG TABLET PO SCH ×3 (01:03→16:04)
[2021-03-20] MEDS: oxyCODONE-APAP 10-325MG 1 EACH TAB PO PRN ×3 (01:04→20:09)
[2021-03-20] MEDS: HYDROmorphone 1 MG/ML 1 ML SYRINGE IVP PRN ×6 (03:10→21:32)
[2021-03-20] MEDS: SODIUM CHLORIDE 0.9% 1,000 ML IV SCH ×3 (05:30→16:58)
[2021-03-20] MEDS: tiZANidine 4 MG TAB PO SCH (09:27)
[2021-03-20] MEDS: busPIRone HCl 10 MG TAB PO SCH ×2 (09:27→20:07)
[2021-03-20 09:28] LABS: Basophils # (A) 0.03 X 10*3/uL (0.00-0.10); Basophils % (A) 0.7 %; Eosinophils # (A) 0.09 X 10*3/uL (0.04-0.35); Eosinophils % (A) 2.2 %; HCT 34.2 % (37.2-46.3); HGB 10.4 g/dL (12.0-15.0); Lymphocytes # (A) 1.75 X 10*3/uL (0.90-5.00); Lymphocytes % (A) 42.1 %; MCH 26.7 pg (27.0-32.0); MCHC 30.4 g/dL (32.0-37.0); MCV 87.7 fL (80.0-97.0); Monocytes # (A) 0.48 X 10*3/uL (0.20-1.00); Monocytes % (A) 11.5 %; Neutrophils % (A) 43.3 %; Platelet Count 194 X 10*3/uL (140-440); RDW 14.7 % (11.5-14.5); WBC 4.16 X 10*3/uL (4.50-10.00)
[2021-03-20] MEDS: PANTOPRAZOLE 40 MG/10 ML VIAL IV SCH (09:28)
[2021-03-20] MEDS: DICYCLOMINE 20 MG TAB PO SCH ×3 (09:28→20:07)
[2021-03-20] MEDS: PREGABALIN 25 MG CAP PO SCH ×2 (09:28→20:09)
[2021-03-20] MEDS: DORZOLAMIDE-TIMOLOL 2.23%/0.68 10ML BTL BOTH EYES SCH ×2 (09:29→20:11)
[2021-03-20 09:44] LABS: African American GFR (CKD) 81.8 (60.0-200.0); Albumin 3.8 g/dL (3.80-4.90); Albumin/Globulin Ratio 1.41 (1.60-3.17); Anion Gap 7.6 mmol/L (4.00-12.00); Calcium 8.5 mg/dL (8.7-10.3); Carbon Dioxide 25.4 mmol/L (21.6-31.8); Globulin 2.7 g/dL (1.6-3.3); Magnesium 1.8 mg/dL (1.5-2.4); Non-African American GFR(CKD) 70.6 (60.0-200.0); Phosphorus 3.5 mg/dL (2.4-5.1); Potassium 3.9 mmol/L (3.5-5.5); Total Bilirubin 0.3 mg/dL (0.2-1.2); Total Protein 6.5 g/dL (6.2-8.2)
[2021-03-20] MEDS ORDERED: DEXAMETHASONE SOD PHOSPHATE 10 MG/ML 1 ML VIAL IV STA (12:28)
--- NOTE | 2021-03-20 14:45 | P.PN ---
Subjective This is a pleasant 80 years old female with past medical history of CVA/TIA, fibromyalgia, GERD, hyperlipidemia, osteoarthritis, sleep apnea on CPAP/BiPAP, chronic back pain. Also history of anxiety and depression which is not active currently. She is patient of Dr. Mata. She presents because of abdominal pain and diarrhea. Also she had some nausea on admission but no vomiting. On admission her lipase was slightly elevated at 489 and amylase at 123, was diagnosed with acute pancreatitis and admitted to the general medical floor. Patient was eating 100% of her liquid diet. When I saw the patient today she was lying in bed not in much distress. She says she has no nausea or vomiting. No diarrhea and her last bowel movement actually was 2 days ago and she complains from left side abdominal pain and also in the left flank and states it is in the back as well. She states that her pain is not/10 in severity. But on further questionnaires there is suspicion that the pain is actually started from her spine and radiating to the abdomen. Patient states that last month also she had an injection into her back due to significant back pain but this did not help much and she supposed to get another injection. Patient complains also from weakness in her left leg but states this is not new and his been going on for about a year. She is also complaining of from burning pain in her left lower extremity which looks like radiating from the above. Hemodynamically she is stable. Labs are reviewed and they are unremarkable. Her left base is actually came down to normal today at 24. Urinalysis is not suspicious of infection. Coronal however as not detected CT of the abdomen and pelvis is negative for acute process but she has right ovarian cyst which is increasing in size over 3.8 cm, patient follow up with desk attendant for left ovarian cyst, she was informed and she said she will follow up with her desk attendant as well MAPS was checked today on 03/20: She is on morphine sulfate 30 mg 3 times a day, pregabalin and Percocet 10 mg 180 tablets for 3 days Review of systems CONSTITUTIONAL: No fever, no malaise, no fatigue. HEENT: No recent visual problems or hearing problems. Denied any sore throat. CARDIOVASCULAR: No orthopnea, PND, no palpitations, no syncope. PULMONARY: No shortness of breath, no cough, no hemoptysis. GASTROINTESTINAL: No diarrhea, no nausea, no vomiting, no abdominal pain. Normoactive bowel sounds. NEUROLOGICAL: No headaches, no weakness, no numbness. Active Medications Generic Name Dose Route Start Last Admin Trade Name Freq PRN Reason Stop Dose Admin Buspirone HCl 20 mg 03/19/21 09:00 03/20/21 09:27 Buspirone Hcl 10 Mg Tab PO 20 mg BID FLAVIO Administration Dexamethasone Sodium Phosphate 4 mg 03/20/21 18:00 Dexamethasone Sod Phosphate 4 Mg/Ml 1 Ml Vial IM Q6HR FLAVIO Dicyclomine HCl 20 mg 03/19/21 09:00 03/20/21 09:28 Dicyclomine 20 Mg Tab PO 20 mg TID FLAVIO Administration Dorzolamide/Timolol 1 drops 03/19/21 09:00 03/20/21 09:29 Dorzolamide-Timolol 2.23%/0.68 10ml Btl BOTH EYES 1 drops BID FLAVIO Administration Fluticasone Propionate 2 spray 03/19/21 08:50 Fluticasone 50mcg/[place] Nasal 16gm EA NOSTRIL DAILY PRN Cold Symptoms Heparin Sodium (Porcine) 5,000 unit 03/20/21 16:00 Heparin Sodium,Porcine/Pf 5,000 Unit/0.5 Ml Syringe SQ Q12H FLAVIO Hydromorphone HCl 1 mg 03/19/21 00:14 03/20/21 11:53 Hydromorphone 1 Mg/Ml 1 Ml Syringe IVP 1 mg Q3HR PRN Administration Severe Pain Sodium Chloride 1,000 mls @ 50 mls/hr 03/19/21 00:15 03/20/21 09:49 Saline 0.9% IV 120 mls/hr .Q20H FLAVIO Administration Latanoprost 1 drops 03/19/21 21:00 03/19/21 21:05 Latanoprost 0.005% Ophth Drops 2.5 Ml Btl BOTH EYES 1 drops HS FLAVIO Administration Melatonin 6 mg 03/19/21 21:00 03/19/21 21:04 Melatonin 3 Mg Tablet PO 6 mg HS FLAVIO Administration Mirtazapine 45 mg 03/19/21 21:00 03/19/21 19:18 Mirtazapine 45 Mg Tablet PO 45 mg HS FLAVIO Administration Morphine Sulfate 30 mg 03/19/21 09:00 03/20/21 09:27 Morphine Sulfate Ir 15 Mg Tablet PO 30 mg Q8H FLAVIO Administration Naloxone HCl 0.2 mg 03/19/21 00:14 Naloxone 0.4 Mg/Ml 1 Ml Vial IV Q2M PRN Opioid Reversal Ondansetron HCl 4 mg 03/19/21 00:14 Ondansetron 4 Mg/2 Ml Vial IVP Q8HR PRN Nausea And Vomiting Oxycodone/Acetaminophen 1 each 03/19/21 08:50 03/20/21 05:42 Oxycodone-Apap 10-325mg 1 Each Tab PO 1 each Q4H PRN Administration Pain Pantoprazole Sodium 40 mg 03/19/21 09:00 03/20/21 09:28 Pantoprazole 40 Mg/10 Ml Vial IV 40 mg DAILY FLAVIO Administration Pregabalin 25 mg 03/19/21 09:00 03/20/21 09:28 Pregabalin 25 Mg Cap PO 25 mg BID FLAVIO Administration Tizanidine HCl 4 mg 03/19/21 09:00 03/20/21 09:27 Tizanidine 4 Mg Tab PO 4 mg DAILY FLAVIO Administration Objective - Vital Signs Vital signs: Vital Signs Temp 98.4 F 03/20/21 14:00 Pulse 81 03/20/21 14:00 Resp 18 03/20/21 14:00 BP 106/67 03/20/21 14:00 Pulse Ox 95 03/20/21 14:00 Intake & Output 03/19/21 03/20/21 03/20/21 18:59 06:59 18:59 Other: # Voids 5 4 - Exam GENERAL: The patient is alert and oriented x3, not in any acute distress. Well developed, well nourished. HEENT: Pupils are round and equally reacting to light. EOMI. No scleral icterus. No conjunctival pallor. Normocephalic, atraumatic. No pharyngeal erythema. No thyromegaly. CARDIOVASCULAR: S1 and S2 present. No murmurs, rubs, or gallops. PULMONARY: Chest is clear to auscultation, no wheezing or crackles. -ABDOMEN: Soft, nontender, normoactive bowel sounds. No palpable organomegaly. Left abdominal tenderness, no rebound tenderness MUSCULOSKELETAL: No joint swelling or deformity. EXTREMITIES: No cyanosis, clubbing, or pedal edema. NEUROLOGICAL: Gross neurological examination did not reveal any focal deficits. SKIN: No rashes. no petechiae. - Labs CBC & Chem 7: 03/20/21 06:30 03/20/21 06:30 Labs: Abnormal Lab Results - Last 24 Hours (Table) 03/20/21 03/20/21 Range/Units 06:30 06:30 WBC 4.16 L (4.50-10.00) X 10*3/uL RBC 3.90 L (4.10-5.20) X 10*6/uL Hgb 10.4 L (12.0-15.0) g/dL Hct 34.2 L (37.2-46.3) % MCH 26.7 L (27.0-32.0) pg MCHC 30.4 L (32.0-37.0) g/dL RDW 14.7 H (11.5-14.5) % BUN 8.0 L (9.0-27.0) mg/dL BUN/Creatinine Ratio 10.00 L (12.00-20.00) Ratio Calcium 8.5 L (8.7-10.3) mg/dL Albumin/Globulin Ratio 1.41 L (1.60-3.17) g/dL Assessment and Plan Assessment: Acute and chronic back pain with possible radiculopathy to the left abdomen and to the left leg. Patient has chronic left leg weakness for 1 year, ot sure if it is related to her spine disease or old CVA. Mild acute pancreatitis, resolved mild acute gastroenteritis, improved Right ovarian cyst, increasing sizes to 3.8 cm History of CVA Fibromyalgia History of GERD Hyperlipidemia History of osteoarthritis 30 sleep apnea on CPAP/BiPAP Plan: This is a pleasant 80 years old female who presents with spinal pain, GI source felt less likely. Continue with pain management. Start dexamethasone. Consult orthopedic team who are informed and order thoracolumbar x-ray. Continue with gentle hydration Labs and medication were reviewed.. Continue same treatment. Continue with symptomatic treatment. Resume home medication. Monitor lytes and vitals. DVT and GI prophylaxis. Further recommendationsas per clinical course of the patient DVT prophylaxis: Subcutaneous heparin GI Prophylaxis: Pepcid PT/OT: Pending Prognosis is guarded
--- NOTE | 2021-03-20 15:18 | XR ---
Result: History: Back pain with leg weakness. Comparison: CT abdomen 03/18/2021. Technique: 3 views of the thoracic spine. 3 views of the lumbar spine. Findings: The bone mineralization is normal. Thoracic spine: There is no acute fracture or subluxation. The vertebral body and disc heights are grossly preserved . The vertebral elements are in anatomic alignment. Lumbar spine: Images of the lumbar spine demonstrate 5 lumbar-type vertebrae. There is no acute fracture or sublux ation. There is demonstration of L2-S1 posterior instrumented fusion with interbody devices at L3-L4 and L4-L5. There is mild anterior wedge deformity of L2. Otherwise vertebral body heights are preserv ed. There is moderate to severe disc abnormality at L1-L3. There is suggestion of mild grade 1 retrol isthesis of L2 on L3. Impression: No acute osseous abnormality of the thoracolumbar spine. L2-S1 fusion with moderate to severe degenerative changes of the upper lumbar spine and mild grade 1 retrolisthesis at L2-L3.
[2021-03-20] MEDS: HEPARIN SODIUM,PORCINE/PF 5,000 UNIT/0.5 ML SYRINGE SQ SCH (16:05)
[2021-03-20] MEDS: DEXAMETHASONE SOD PHOSPHATE 4 MG/ML 1 ML VIAL IV SCH (16:59)
[2021-03-20] MEDS ORDERED: DEXAMETHASONE SOD PHOSPHATE 4 MG/ML 1 ML VIAL IM SCH (18:00)
[2021-03-20] MEDS: MIRTAZAPINE 45 MG TABLET PO SCH (20:07)
[2021-03-20] MEDS: MELATONIN 3 MG TABLET PO SCH (20:09)
[2021-03-20] MEDS: LATANOPROST 0.005% OPHTH DROPS 2.5 ML BTL BOTH EYES SCH (20:11)
[2021-03-21] MEDS: DEXAMETHASONE SOD PHOSPHATE 4 MG/ML 1 ML VIAL IV SCH ×3 (00:18→12:12)
[2021-03-21] MEDS: MORPHINE SULFATE IR 15 MG TABLET PO SCH ×3 (00:19→16:01)
[2021-03-21] MEDS: HYDROmorphone 1 MG/ML 1 ML SYRINGE IVP PRN ×6 (01:15→16:59)
[2021-03-21] MEDS: HEPARIN SODIUM,PORCINE/PF 5,000 UNIT/0.5 ML SYRINGE SQ SCH ×2 (04:55→16:01)
[2021-03-21] MEDS: DICYCLOMINE 20 MG TAB PO SCH ×3 (07:27→20:06)
[2021-03-21] MEDS: busPIRone HCl 10 MG TAB PO SCH ×2 (07:27→20:08)
[2021-03-21] MEDS: tiZANidine 4 MG TAB PO SCH (07:28)
[2021-03-21] MEDS: PANTOPRAZOLE 40 MG/10 ML VIAL IV SCH (07:28)
[2021-03-21] MEDS: PREGABALIN 25 MG CAP PO SCH ×2 (07:28→20:07)
[2021-03-21] MEDS: DORZOLAMIDE-TIMOLOL 2.23%/0.68 10ML BTL BOTH EYES SCH ×2 (10:27→20:09)
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
--- NOTE | 2021-03-21 12:14 | XR ---
EXAMINATION TYPE: XR Hip LT and AP Pelvis DATE OF EXAM: 03/21/2021 COMPARISON: Prior pelvic and left hip x-rays November 23, 2020 HISTORY: Pelvic and left hip pain TECHNIQUE: A single AP view of the pelvis is obtained. Two views of the left hip are obtained. FINDINGS: There is no acute fracture/dislocation evident in the pelvis. The right sacroiliac joint shows asymmetric narrowing and sclerosis. Pubic symphysis is intact. [id number] axial joint spa ce loss with mild acetabular spurring of both hips redemonstrated. Left-sided pelvic phleboliths rede monstrated. Extensive surgical change to the lumbar spine partially imaged. Two views of left hip show no acute fracture or dislocation. No focal lytic or sclerotic lesion seen in the proximal left femur. The overlying soft tissue is unremarkable. IMPRESSION: As above. No significant change from prior.
[2021-03-21] MEDS: SODIUM CHLORIDE 0.9% 1,000 ML IV SCH (13:26)
[2021-03-21] MEDS ORDERED: SIMETHICONE 80 MG CHEWABLE PO PRN (14:16)
[2021-03-21] MEDS ORDERED: DOCUSATE 100 MG CAP PO PRN (14:17)
[2021-03-21] MEDS ORDERED: SENNOSIDES 8.6 MG TAB PO PRN (14:17)
[2021-03-21] MEDS ORDERED: bisacodyL 10 MG SUPP RECTAL PRN (14:18)
[2021-03-21] MEDS ORDERED: polyethylene glycoL 3350 17 GM POWD.PACK PO PRN (15:44)
--- NOTE | 2021-03-21 19:32 | P.PN ---
Subjective This is a pleasant 80 years old female with past medical history of CVA/TIA, fibromyalgia, GERD, hyperlipidemia, osteoarthritis, sleep apnea on CPAP/BiPAP, chronic back pain. Also history of anxiety and depression which is not active currently. She is patient of Dr. Mata. She presents because of abdominal pain and diarrhea. Also she had some nausea on admission but no vomiting. On admission her lipase was slightly elevated at 489 and amylase at 123, was diagnosed with acute pancreatitis and admitted to the general medical floor. Patient was eating 100% of her liquid diet. When I saw the patient today she was lying in bed not in much distress. She says she has no nausea or vomiting. No diarrhea and her last bowel movement actually was 2 days ago and she complains from left side abdominal pain and also in the left flank and states it is in the back as well. She states that her pain is not/10 in severity. But on further questionnaires there is suspicion that the pain is actually started from her spine and radiating to the abdomen. Patient states that last month also she had an injection into her back due to significant back pain but this did not help much and she supposed to get another injection. Patient complains also from weakness in her left leg but states this is not new and his been going on for about a year. She is also complaining of from burning pain in her left lower extremity which looks like radiating from the above. Hemodynamically she is stable. Labs are reviewed and they are unremarkable. Her left base is actually came down to normal today at 24. Urinalysis is not suspicious of infection. Coronal however as not detected CT of the abdomen and pelvis is negative for acute process but she has right ovarian cyst which is increasing in size over 3.8 cm, patient follow up with hair boiler operator for left ovarian cyst, she was informed and she said she will follow up with her hair boiler operator as well MAPS was checked today on 03/20: She is on morphine sulfate 30 mg 3 times a day, pregabalin and Percocet 10 mg 180 tablets for 3 days 03/21/2021 Patient is generally doing well. She still complaining of from left side abdominal pain, and also lower back and to the left pain with possible radiation to the left abdomen. On admission CT of the abdomen did not show a cause for patient's symptoms. Also patient with significant spine disease. Thoracolumbar x-ray were negative. Orthopedic consult is appreciated they recommended pain management consult however patient declined and she wants to follow up with her pain doctor tomorrow afternoon. She supposed to get spinal injection. Other than that her pain is better controlled and today she agrees to switch IV Dilaudid to her home dose of Percocet. 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 IV fluids and dexamethasone were stopped. She is tolerating diet well. No vomiting Objective - Vital Signs Vital signs: Vital Signs Temp 98.8 F 03/21/21 19:17 Pulse 97 03/21/21 19:17 Resp 16 03/21/21 19:17 BP 137/87 03/21/21 19:17 Pulse Ox 96 03/21/21 19:17 Intake & Output 03/21/21 03/21/21 03/22/21 06:59 18:59 06:59 Other: Voiding Method Toilet # Voids 3 4 - Exam GENERAL: The patient is alert and oriented x3, not in any acute distress. Well developed, well nourished. HEENT: Pupils are round and equally reacting to light. EOMI. No scleral icterus. No conjunctival pallor. Normocephalic, atraumatic. No pharyngeal erythema. No thyromegaly. CARDIOVASCULAR: S1 and S2 present. No murmurs, rubs, or gallops. PULMONARY: Chest is clear to auscultation, no wheezing or crackles. -ABDOMEN: Soft, nontender, normoactive bowel sounds. No palpable organomegaly. no Left abdominal tenderness, no rebound tenderness MUSCULOSKELETAL: No joint swelling or deformity. EXTREMITIES: No cyanosis, clubbing, or pedal edema. NEUROLOGICAL: Gross neurological examination did not reveal any focal deficits. SKIN: No rashes. no petechiae. - Labs CBC & Chem 7: 03/20/21 06:30 03/20/21 06:30 Assessment and Plan Assessment: Acute and chronic back pain with possible radiculopathy to the left abdomen and to the left leg. History of stroke with chronic left leg weakness Mild acute pancreatitis, resolved mild acute gastroenteritis, improved Right ovarian cyst, increasing sizes to 3.8 cm History of CVA Fibromyalgia History of GERD Hyperlipidemia History of osteoarthritis 30 sleep apnea on CPAP/BiPAP Plan: This is a pleasant 80 years old female who presents with spinal pain, GI source felt less likely. Continue with pain management. Discontinue IV fluids and dexamethasone. Patient was cleared for Possible discharge in a.m. so she can catch up with her appointment with the pain doctor as she wishes Pancreatitis and gastroenteritis resolved. No diarrhea since admission She is going to follow-up with her hair boiler operator for her right ovary and cyst and she made aware of it as well as her Labs and medication were reviewed.. Continue same treatment. Continue with symptomatic treatment. Resume home medication. Monitor lytes and vitals. DVT and GI prophylaxis. Further recommendations as per clinical course of the patient DVT prophylaxis: Subcutaneous heparin GI Prophylaxis: Pepcid PT/OT: Pending Prognosis is guarded
[2021-03-21] MEDS: MELATONIN 3 MG TABLET PO SCH (20:07)
[2021-03-21] MEDS: oxyCODONE-APAP 10-325MG 1 EACH TAB PO PRN (20:08)
[2021-03-21] MEDS: LATANOPROST 0.005% OPHTH DROPS 2.5 ML BTL BOTH EYES SCH (20:10)
[2021-03-21] MEDS ORDERED: polyethylene glycoL 3350 17 GM POWD.PACK PO SCH (21:00)
[2021-03-21] MEDS: MIRTAZAPINE 45 MG TABLET PO SCH (21:06)
[2021-03-22] MEDS: oxyCODONE-APAP 10-325MG 1 EACH TAB PO PRN ×2 (00:20→04:18)
[2021-03-22] MEDS: MORPHINE SULFATE IR 15 MG TABLET PO SCH ×2 (00:22→08:20)
[2021-03-22 02:53] VITALS: BP 142/78; PULSE 77; RESP 17; TEMP 98
[2021-03-22] MEDS: HEPARIN SODIUM,PORCINE/PF 5,000 UNIT/0.5 ML SYRINGE SQ SCH (04:18)
[2021-03-22] MEDS: PANTOPRAZOLE 40 MG/10 ML VIAL IV SCH (08:18)
[2021-03-22] MEDS: tiZANidine 4 MG TAB PO SCH (08:20)
[2021-03-22] MEDS: PREGABALIN 25 MG CAP PO SCH (08:20)
[2021-03-22] MEDS: busPIRone HCl 10 MG TAB PO SCH (08:20)
[2021-03-22] MEDS: DICYCLOMINE 20 MG TAB PO SCH (08:20)
--- NOTE | 2021-03-23 00:26 | P.DS ---
Providers Date of admission: 03/19/21 00:15 Attending physician: Hill Mata Consults: 03/20/21 12:27 Consult Physician Urgent Consulting Provider: Js Pettit Consult Reason/Comments: back pain , with left leg weakness Do you want consulting provider notified?: Yes Primary care physician: Hill Mata Hospital Course: Diagnoses: Acute and chronic back pain with possible radiculopathy to the left abdomen and to the left leg. History of stroke with chronic left leg weakness Mild acute pancreatitis, resolved mild acute gastroenteritis, improved Right ovarian cyst, increasing sizes to 3.8 cm History of CVA Fibromyalgia History of GERD Hyperlipidemia History of osteoarthritis sleep apnea on CPAP/BiPAP Hospital course: This is a pleasant 80 years old female with past medical history of CVA/TIA, fibromyalgia, GERD, hyperlipidemia, osteoarthritis, sleep apnea on CPAP/BiPAP, chronic back pain. Also history of anxiety and depression which is not active currently. She is patient of Dr. Mata. She presents because of abdominal pain and diarrhea. Also she had some nausea on admission but no vomiting. On admission her lipase was slightly elevated at 489 and amylase at 123, was diagnosed with acute pancreatitis and admitted to the general medical floor. Patient was eating 100% of her liquid diet. Within one day her lipase came back to normal at 24 and hyperkeratotic is resolved. Her pain mainly in the left side of the abdomen, its vague sometimes in the lower abdomen and sometimes more than flank and associated with back pain at the same level and to the left. ((CT of the abdomen and pelvis is negative for acute process but she has right ovarian cyst which is increasing in size over 3.8 cm, patient follow up with internal grinder for left ovarian cyst, she was informed and she said she will follow up with her internal grinder as well)) Patient has significant spine disease and she has a spine doctor and pain management doctor and she supposed to get last month also she had an injection into her back due to significant back pain but this did not help much and she supposed to get another injection Today at 12 midday It feels like her pain typically comes from her spine, she was started on dexamethasone and orthopedic team were consulted, who recommended pain management but patient referred to be discharged and see her pain doctor as an outpatient. When I came to see the patient this morning, she was pleasant, sitting in bed comfortable. Stating that her back pain and lower abdominal pain is significantly improved, she was already then stop and willing to be discharged so she can catch up with her appointment with the pain doctor today as 12:00. She rates her pain as 5/10 which she states hasn't been this low before so she was happy and still wants to to be discharged. She tolerates diet well. No bowel movement but she is passing gases. She does not need Dilaudid anymore and she agrees to go back to her home dose of Percocet. Laxative or stool softeners are provided for the patient upon discharge Patient was cleared for discharge by orthopedic team Problems and management plan were discussed with the patient and he verbalized understanding and acceptance Patient was found stable and can be discharged home however he needs follow-up as an outpatient. Patient was instructed to follow up with PCP Dr. Mata/HERMILA Perez within one week and patient agrees. Patient did not want to wait for the staff to make her an appointment and she wanted to make her appointment and her timing by herself. Also patient told me she is going to follow-up with her pain doctor and orthopedic doctor today. And she intends to follow up with her internal grinder in 1-2 weeks and that she has the contact information at home, for her asymptomatic right ovarian cyst Physical exam Gen: patient is a AAOx3, no distress CVS: S1-S2, RRR, no murmur Lungs: B/L CTA, no wheezing Abdomen: soft, no distention, no tenderness, positive bowel sounds Extremity: no leg edema or induration Time spent more than 35 minutes Patient Condition at Discharge: Fair Plan - Discharge Summary Discharge Rx Participant: No New Discharge Prescriptions: New Docusate [Colace] 100 mg PO BID PRN #60 cap PRN Reason: Constipation Simethicone Chew [Mylicon Chew] 80 mg PO QID PRN #10 chew PRN Reason: Gi Upset Sennosides [Senokot] 17.2 mg PO HS PRN #60 tab PRN Reason: Constipation Continue Dorzolamide HCl/Timolol Maleat [Cosopt Eye Drops] 1 drop BOTH EYES BID Pregabalin [Lyrica] 25 mg PO BID Latanoprost/Pf [Latanoprost 0.005% Eye Drop] 1 drop BOTH EYES HS busPIRone HCl [Buspar] 20 mg PO BID 30 Days tab DULoxetine HCL [Cymbalta] 60 mg PO HS #30 capsule. Mirtazapine [Remeron] 45 mg PO HS #30 tablet Dicyclomine [Bentyl] 20 mg PO TID oxyCODONE-APAP 10-325MG [Percocet 10-325 mg] 1 tab PO Q4H PRN PRN Reason: Pain Pantoprazole [Protonix] 40 mg PO DAILY tiZANidine [Zanaflex] 4 mg PO DAILY Morphine Sulfate Ir [MSIR] 30 mg PO Q8H Fluticasone Nasal [place] [Flonase Nasal [place]] 2 spr EA NOSTRIL DAILY PRN PRN Reason: Cold Symptoms Discharge Medication List Dorzolamide HCl/Timolol Maleat [Cosopt Eye Drops] 1 drop BOTH EYES BID 03/02/16 [History] Pregabalin [Lyrica] 25 mg PO BID 06/07/18 [History] Latanoprost/Pf [Latanoprost 0.005% Eye Drop] 1 drop BOTH EYES HS 08/28/19 [History] DULoxetine HCL [Cymbalta] 60 mg PO HS #30 capsule. 09/04/19 [Rx] Mirtazapine [Remeron] 45 mg PO HS #30 tablet 09/04/19 [Rx] busPIRone HCl [Buspar] 20 mg PO BID 30 Days tab 09/04/19 [Rx] Dicyclomine [Bentyl] 20 mg PO TID 12/09/19 [History] oxyCODONE-APAP 10-325MG [Percocet 10-325 mg] 1 tab PO Q4H PRN 03/02/20 [History] Pantoprazole [Protonix] 40 mg PO DAILY 04/30/20 [History] Fluticasone Nasal [place] [Flonase Nasal [place]] 2 spr EA NOSTRIL DAILY PRN 02/13/21 [History] tiZANidine [Zanaflex] 4 mg PO DAILY 02/13/21 [History] Morphine Sulfate Ir [MSIR] 30 mg PO Q8H 03/19/21 [History] Docusate [Colace] 100 mg PO BID PRN #60 cap 03/22/21 [Rx] Sennosides [Senokot] 17.2 mg PO HS PRN #60 tab 03/22/21 [Rx] Simethicone Chew [Mylicon Chew] 80 mg PO QID PRN #10 chew 03/22/21 [Rx] Follow up Appointment(s)/Referral(s): Naa Matthew PAC [PHYSICIAN DIAMOND SI[employer]ER AND GRADER] - 1 Week (please call and make an appt) Hill Mata MD [Primary Care Provider] - 1-2 days (Please call and make an appt) Dennise Robison DO [Doctor of Osteopathic Medicine] - 2 Weeks (internal grinder or follow up with your internal grinder for your right ovarian cyst) Patient Instructions/Handouts: Pancreatitis (DC) Activity/Diet/Wound Care/Special Instructions: Heart healthy diet Activity is restricted till you see your doctors We recommend he follow-up with your internal grinder for your 3.8 cm right ovarian cyst, you have the contact information for your internal grinder as you informed the medical team , please call to make an appointment within 1-2 weeks Recommend follow-up with your orthopedic and pain management doctor in 1 week, you have the contact information as you informed the medical team, please call to make an appointment within 1 weeks Discharge Disposition: HOME SELF-CARE
== END 2021-03-22 08:25 | disposition home or self-care (01) ==
LOC: EC 20:36 → 4SSUR 03-19 00:15
PROVIDERS: ADMIT Family Medicine; ATTEND Family Medicine
DX: K85.90 Acute pancreatitis without necrosis or infection, unspecified (principal); K52.9 Noninfective gastroenteritis and colitis, unspecified; M51.36 Other intervertebral disc degeneration, lumbar region; G89.29 Other chronic pain; M43.06 Spondylolysis, lumbar region; K76.89 Other specified diseases of liver; N83.201 Unspecified ovarian cyst, right side; E78.5 Hyperlipidemia, unspecified; K21.9 Gastro-esophageal reflux disease without esophagitis; K57.90 Diverticulosis of intestine, part unspecified, without perforation or abscess without bleeding; I69.954 Hemiplegia and hemiparesis following unspecified cerebrovascular disease affecting left non-dominant side; M19.90 Unspecified osteoarthritis, unspecified site; M79.7 Fibromyalgia; H40.9 Unspecified glaucoma; K59.00 Constipation, unspecified; D64.9 Anemia, unspecified; H26.9 Unspecified cataract; Z20.822 Contact with and (suspected) exposure to COVID-19; R26.9 Unspecified abnormalities of gait and mobility; R41.3 Other amnesia; G47.30 Sleep apnea, unspecified; I95.9 Hypotension, unspecified; F31.9 Bipolar disorder, unspecified; F41.0 Panic disorder [episodic paroxysmal anxiety]; E66.9 Obesity, unspecified; Z68.29 Body mass index [BMI] 29.0-29.9, adult; F11.11 Opioid abuse, in remission; Z79.891 Long term (current) use of opiate analgesic; Z79.899 Other long term (current) drug therapy; Z88.5 Allergy status to narcotic agent; Z88.8 Allergy status to other drugs, medicaments and biological substances; Z96.653 Presence of artificial knee joint, bilateral; Z98.42 Cataract extraction status, left eye; Z98.1 Arthrodesis status; Z90.49 Acquired absence of other specified parts of digestive tract; Z90.710 Acquired absence of both cervix and uterus; Z96.89 Presence of other specified functional implants; Z87.891 Personal history of nicotine dependence; Z91.81 History of falling; Z98.890 Other specified postprocedural states; Z80.9 Family history of malignant neoplasm, unspecified
CPT/HCPCS: 99285; 96376 ×3; 96361 ×3; 96372 ×3; 96375 ×2; 96374; 36415; 80053 ×2; 82150; 82550; 83605; 83690 ×2; 83735; 84100; 85025 ×2; 81003; 87635; 72072; 72100; 73502; 74177; G0378 ×4; J2270; J1100 ×3; J2405; J1170 ×4; C9113 ×4; J1644 ×3

== ENCOUNTER 2021-06-08 12:18 | Observation (INO) | payer MEDICARE ==
[2021-06-08] MEDS ORDERED: ONDANSETRON 4 MG/2 ML VIAL IVP STA (12:47)
[2021-06-08] MEDS ORDERED: HYDROmorphone 0.5 MG/0.5 ML SYRINGE IVP STA (12:47)
[2021-06-08] MEDS ORDERED: SODIUM CHLORIDE 0.9% 1,000 ML IV STA (12:48)
[2021-06-08 13:13] LABS: Basophils % (A) 0 %; Eosinophils # (A) 0.1 k/uL (0-0.7); Eosinophils % (A) 1 %; HCT 39.8 % (34.0-46.0); HGB 12.8 gm/dL (11.4-16.0); Lymphocytes # (A) 1.7 k/uL (1.0-4.8); Lymphocytes % (A) 26 %; MCH 27.3 pg (25.0-35.0); MCHC 32.1 g/dL (31.0-37.0); Mean Platelet Volume 7.5; Monocytes # (A) 0.5 k/uL (0-1.0); Monocytes % (A) 7 %; Neutrophils # (A) 4.2 k/uL (1.3-7.7); Neutrophils % (A) 63 %; Platelet Count 234 k/uL (150-450); RBC 4.68 m/uL (3.80-5.40); RDW 14.4 % (11.5-15.5); WBC 6.6 k/uL (3.8-10.6)
[2021-06-08 13:38] LABS: ALT 14 U/L (4-34); AST 34 U/L (14-36); African American GFR (CKD) >90 (>60 ml/min/1.73 sqM); Albumin 4.4 g/dL (3.5-5.0); Alkaline Phosphatase 76 U/L (38-126); Amylase 77 U/L (30-110); Anion Gap 9 mmol/L; Blood Urea Nitrogen 13 mg/dL (7-17); Carbon Dioxide 26 mmol/L (22-30); Chloride 101 mmol/L (98-107); Glucose 112 mg/dL (74-99); Lipase 35 U/L (23-300); Non-African American GFR(CKD) 82 (>60 ml/min/1.73 sqM); Sodium 136 mmol/L (137-145); Total Bilirubin 0.5 mg/dL (0.2-1.3)
[2021-06-08 13:42] LABS: Potassium 4.3 mmol/L (3.5-5.1)
[2021-06-08 14:00] LABS: Appearance,Urine Cloudy (Clear); Bacteria,Urine Rare /hpf; Bilirubin,Urine Negative (Negative); Blood,Urine Negative (Negative); Color,Urine Yellow; Glucose,Urine (UA) Negative (Negative); Ketones,Urine Negative (Negative); Leukocyte Esterase,Urine Negative (Negative); Mucus,Urine Many /hpf; Nitrite,Urine Negative (Negative); PH, Urine 8.5 (5.0-8.0); Protein,Urine 1+ (Negative); RBC,Urine 2 /hpf (0-5); Specific Gravity,Urine 1.029 (1.001-1.035); Squamous Epithelial Cell,Urine 6 /hpf (0-4); WBC,Urine 1 /hpf (0-5)
--- NOTE | 2021-06-08 14:24 | CT ---
EXAMINATION TYPE: CT abdomen pelvis w con DATE OF EXAM: 06/08/2021 HISTORY: mid to left side pain CT DLP: 1177.5mGycm Automated Exposure Control for Dose Reduction was Utilized. CONTRAST: CT scan of the abdomen and pelvis is performed without oral but with IV Contrast, patient injected wi th 80 mL of Isovue 300. COMPARISON: CT abdomen and pelvis March 18, 2021 FINDINGS: LUNG BASES: Some dependent atelectasis both bases is redemonstrated LIVER/GB: Scattered subcentimeter hypodense lesions throughout the liver are redemonstrated and fairl y stable favored benign. Gallbladder has distended margin similar to prior without surrounding inflam matory change. PANCREAS: Mild to moderate generalized atrophy redemonstrated. SPLEEN: No significant abnormality is seen. ADRENALS: No significant abnormality is seen. KIDNEYS: Symmetric cortical medullary uptake and excretion with some slightly more prominent parapelv ic cysts left kidney upper to midpole level centrally redemonstrated. No hydronephrosis bilaterally. BOWEL: Evaluation bowel suboptimal secondary to lack of enteric contrast. Sutures at level of sigmoid colon axial image 66 redemonstrated. There is no suspicious small or large bowel dilatation currentl y. Stomach poorly distended and thus suboptimally evaluated. UTERUS/ADNEXA: Uterus is surgically absent. A few scattered left-sided pelvic phleboliths redemonstra cali. There is fairly stable 3.5 x 2.7 2 cm low dense right upper pelvic lesion redemonstrated axial i mage 66 current study. This is abnormal finding in postmenopausal female but stability suggests benig n etiology. Correlate clinically. LYMPH NODES: No greater than 1cm abdominal or pelvic lymph nodes are appreciated. OSSEOUS STRUCTURES: Extensive postsurgical change to the lower lumbar spine redemonstrated this cause s streak artifact somewhat limiting evaluation of mid abdominal structures. Posterior interpedicular rods and screws transfix L2-S1 level bilaterally similar to prior. Metallic disc material noted at L3 -L4 and L4-L5 levels similar to prior. There is moderate disc space narrowing and severe anterior spu rring with sclerosis L1-L2 level. [id number] disc space narrowing L2-L3 level redemonstrated. There is calcification narrowing lumbosacral junction redemonstrated. Alignment is stable and straig htened with slight scoliotic curvature redemonstrated. Posterior decompression changes redemonstrated . OTHER: No significant additional abnormality is seen. IMPRESSION: No new or acute finding is seen to account for patient's clinical symptoms.
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
[2021-06-08] MEDS ORDERED: NALOXONE 0.4 MG/ML 1 ML VIAL IV PRN (14:51)
[2021-06-08] MEDS ORDERED: ONDANSETRON 4 MG/2 ML VIAL IVP PRN (14:51)
[2021-06-08] MEDS ORDERED: DOCUSATE 100 MG CAP PO PRN (15:59)
[2021-06-08] MEDS ORDERED: FLUTICASONE 50MCG/SPRAY NASAL 16GM EA NOSTRIL PRN (15:59)
[2021-06-08] MEDS: MORPHINE SULFATE ER 30 MG TABLET PO SCH (17:49)
[2021-06-08] MEDS: DICYCLOMINE 20 MG TAB PO SCH ×2 (17:49→23:43)
[2021-06-08] MEDS: SODIUM CHLORIDE 0.9% 1,000 ML IV SCH ×2 (17:51→23:44)
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
[2021-06-08] MEDS: oxyCODONE-APAP 10-325MG 1 EACH TAB PO PRN (19:13)
[2021-06-08] MEDS: busPIRone HCl 10 MG TAB PO SCH ×2 (19:36→23:42)
[2021-06-08] MEDS ORDERED: tiZANidine 4 MG TAB PO SCH (21:00)
[2021-06-08] MEDS ORDERED: LATANOPROST 0.005% OPHTH DROPS 2.5 ML BTL BOTH EYES SCH (21:00)
[2021-06-08] MEDS ORDERED: MIRTAZAPINE 45 MG TABLET PO SCH (21:00)
[2021-06-08] MEDS ORDERED: DULoxetine HCL 60 MG CAPSULE.DR PO SCH (21:00)
[2021-06-08] MEDS: DORZOLAMIDE-TIMOLOL 2.23%/0.68 10ML BTL BOTH EYES SCH (22:42)
[2021-06-08] MEDS: PREGABALIN 25 MG CAP PO SCH (22:42)
[2021-06-08] MEDS: HYDROmorphone 0.5 MG/0.5 ML SYRINGE IVP PRN (22:46)
[2021-06-09] MEDS: MORPHINE SULFATE ER 30 MG TABLET PO SCH ×2 (01:00→08:20)
[2021-06-09] MEDS: oxyCODONE-APAP 10-325MG 1 EACH TAB PO PRN ×2 (02:50→11:07)
[2021-06-09] MEDS ORDERED: KETOROLAC 15 MG/ML 1 ML VIAL IVP STA (03:37)
[2021-06-09] MEDS ORDERED: diphenhydrAMINE 50 MG/ML 1 ML VIAL IVP STA (03:38)
[2021-06-09] MEDS: HYDROmorphone 0.5 MG/0.5 ML SYRINGE IVP PRN (04:04)
[2021-06-09] MEDS: LACTATED RINGERS 1,000 ML IV SCH ×6 (04:13→11:24)
[2021-06-09] MEDS ORDERED: METOCLOPRAMIDE 5 MG/ML 2 ML VIAL IVP SCH (06:00)
[2021-06-09] MEDS ORDERED: PANTOPRAZOLE 40 MG TABLET PO SCH (07:30)
--- NOTE | 2021-06-09 08:16 | P.DS ---
Providers Date of admission: 06/08/21 15:14 Expected date of discharge: 06/09/21 Attending physician: Hill Mata Primary care physician: Hill Mata Hospital Course: 81-year-old female with past medical history of recurrent abdominal pain, fibromyalgia, CVA/TIA, GERD/reflux, hyperlipidemia, memory impairment, muscular skeletal disorder, osteoarthritis, sleep apnea on CPAP/BiPAP, chronic back pain, mixed anxiety and depression, bipolar, and possible opioid dependence from chronic use for chronic back pain was admitted to the hospital free of recurrent abdominal pain. CT of the abdomen unremarkable, diagnostic testing within nor mal range except lactic acid 2.3. Patient's pain intensity in the abdomen has decreased with IV analgesics and IV hydration. patient tolerated hospital stay well. patient to follow-up with primary care in 1-2 days; pain management in 1-2 weeks. Assessment: Acute on chronic abdominal pain, multifactorial Elevated lactic acid corrected with IV hydration GERD/reflux Fibromyalgia History of CVA/TIA Hyperlipidemia Memory impairment Osteoarthritis Sleep apnea dependent on CPAP/BiPAP Glaucoma History of diverticulitis Chronic back pain Several orthopedic surgeries Health Concerns: multiple comorbidities chronic pain complexity medical treatment plan Pertinent Studies: ct- abd/pelvis; no acute process noted Procedures: none noted Patient Condition at Discharge: Fair Plan - Discharge Summary Discharge Rx Participant: No New Discharge Prescriptions: New Linaclotide [Linzess] 290 mcg PO DAILY #30 cap Continue Dorzolamide HCl/Timolol Maleat [Cosopt Eye Drops] 1 drop BOTH EYES BID Pregabalin [Lyrica] 25 mg PO BID Latanoprost/Pf [Latanoprost 0.005% Eye Drop] 1 drop BOTH EYES HS DULoxetine HCL [Cymbalta] 60 mg PO HS #30 capsule. Mirtazapine [Remeron] 45 mg PO HS #30 tablet Dicyclomine [Bentyl] 20 mg PO TID oxyCODONE-APAP 10-325MG [Percocet 10-325 mg] 1 tab PO TID PRN PRN Reason: Pain Pantoprazole [Protonix] 40 mg PO DAILY tiZANidine [Zanaflex] 4 mg PO HS Docusate [Colace] 100 mg PO BID PRN #60 cap PRN Reason: Constipation Morphine Sulfate [Ms Contin] 30 mg PO Q8HR Fluticasone Nasal [place] [Flonase Nasal [place]] 2 spr EA NOSTRIL DAILY PRN PRN Reason: Cold Symptoms busPIRone HCl [Buspar] 10 mg PO QID Discharge Medication List Dorzolamide HCl/Timolol Maleat [Cosopt Eye Drops] 1 drop BOTH EYES BID 03/02/16 [History] Pregabalin [Lyrica] 25 mg PO BID 06/07/18 [History] Latanoprost/Pf [Latanoprost 0.005% Eye Drop] 1 drop BOTH EYES HS 08/28/19 [History] DULoxetine HCL [Cymbalta] 60 mg PO HS #30 capsule.dr 09/04/19 [Rx] Mirtazapine [Remeron] 45 mg PO HS #30 tablet 09/04/19 [Rx] Dicyclomine [Bentyl] 20 mg PO TID 12/09/19 [History] oxyCODONE-APAP 10-325MG [Percocet 10-325 mg] 1 tab PO TID PRN 03/02/20 [History] Pantoprazole [Protonix] 40 mg PO DAILY 04/30/20 [History] Fluticasone Nasal [place] [Flonase Nasal [place]] 2 spr EA NOSTRIL DAILY PRN 02/13/21 [History] tiZANidine [Zanaflex] 4 mg PO HS 02/13/21 [History] Docusate [Colace] 100 mg PO BID PRN #60 cap 03/22/21 [Rx] Morphine Sulfate [Ms Contin] 30 mg PO Q8HR 06/08/21 [History] busPIRone HCl [Buspar] 10 mg PO QID 06/08/21 [History] Linaclotide [Linzess] 290 mcg PO DAILY #30 cap 06/09/21 [Rx] Follow up Appointment(s)/Referral(s): Hill Mata MD [Primary Care Provider] - 1-2 days Ambulatory/Diagnostic Orders: Amylase [LAB.AMB] Location: None Selected Complete Blood Count w/diff [LAB.AMB] Location: None Selected Comprehensive Metabolic Panel [LAB.AMB] Location: None Selected Lipase [LAB.AMB] Location: None Selected Magnesium [LAB.AMB] Location: None Selected Patient Instructions/Handouts: Fibromyalgia (DC), Acute Nausea and Vomiting (DC), Acute Abdominal Pain (DC), Chronic Abdominal Pain (GEN) Activity/Diet/Wound Care/Special Instructions: Diet as tolerated Discharge Disposition: HOME SELF-CARE
[2021-06-09 08:20] VITALS: BP 133/69; PULSE 76; RESP 16; TEMP 98.1
[2021-06-09] MEDS: DICYCLOMINE 20 MG TAB PO SCH (08:21)
[2021-06-09] MEDS: busPIRone HCl 10 MG TAB PO SCH (08:21)
[2021-06-09 08:22] LABS: Basophils % (A) 0 %; Eosinophils # (A) 0.1 k/uL (0-0.7); Eosinophils % (A) 3 %; HGB 10.8 gm/dL (11.4-16.0); Hypochromasia Slight; Lymphocytes # (A) 1.6 k/uL (1.0-4.8); Lymphocytes % (A) 37 %; MCH 28.7 pg (25.0-35.0); MCHC 32.7 g/dL (31.0-37.0); MCV 87.8 fL (80.0-100.0); Mean Platelet Volume 7.5; Monocytes # (A) 0.3 k/uL (0-1.0); Monocytes % (A) 8 %; Neutrophils # (A) 2.1 k/uL (1.3-7.7); Neutrophils % (A) 49 %; Platelet Count 186 k/uL (150-450); RBC 3.76 m/uL (3.80-5.40); RDW 14.6 % (11.5-15.5); WBC 4.3 k/uL (3.8-10.6)
[2021-06-09] MEDS: DORZOLAMIDE-TIMOLOL 2.23%/0.68 10ML BTL BOTH EYES SCH (08:27)
[2021-06-09 08:34] LABS: African American GFR (CKD) 79 (>60 ml/min/1.73 sqM); Anion Gap 5 mmol/L; Blood Urea Nitrogen 12 mg/dL (7-17); Calcium 8.3 mg/dL (8.4-10.2); Carbon Dioxide 26 mmol/L (22-30); Chloride 108 mmol/L (98-107); Glucose 101 mg/dL (74-99); Magnesium 1.7 mg/dL (1.6-2.3); Non-African American GFR(CKD) 68 (>60 ml/min/1.73 sqM); Potassium 3.9 mmol/L (3.5-5.1); Sodium 139 mmol/L (137-145)
[2021-06-09] MEDS: PREGABALIN 25 MG CAP PO SCH (11:01)
== END 2021-06-09 11:13 | disposition home or self-care (01) ==
LOC: EC 12:18 → 1SOBS 15:14 → 6NMEDSUR 16:47
PROVIDERS: ADMIT Family Medicine; ATTEND Family Medicine
DX: R10.9 Unspecified abdominal pain (principal); R11.2 Nausea with vomiting, unspecified; E87.2 Acidosis; G89.29 Other chronic pain; F31.9 Bipolar disorder, unspecified; F41.0 Panic disorder [episodic paroxysmal anxiety]; E78.5 Hyperlipidemia, unspecified; G47.30 Sleep apnea, unspecified; H40.9 Unspecified glaucoma; K21.9 Gastro-esophageal reflux disease without esophagitis; K59.00 Constipation, unspecified; M19.90 Unspecified osteoarthritis, unspecified site; M54.9 Dorsalgia, unspecified; M79.7 Fibromyalgia; Z79.899 Other long term (current) drug therapy; Z86.73 Personal history of transient ischemic attack (TIA), and cerebral infarction without residual deficits; Z87.891 Personal history of nicotine dependence; Z90.710 Acquired absence of both cervix and uterus; Z96.653 Presence of artificial knee joint, bilateral; Z98.42 Cataract extraction status, left eye
CPT/HCPCS: 96376 ×2; 96361 ×2; 96375 ×2; 99284; 96374; 36415; 80053; 80048; 82150; 83605; 83690; 83735; 85025 ×2; 81001; 74177; G0378 ×2; J1200; J2765; J2405; J1885; J1170 ×2; Q9967

== ENCOUNTER 2021-07-08 15:23 | Emergency (ER) | payer MEDICARE ==
[2021-07-08 15:57] VITALS: TEMP 98.6
[2021-07-08] MEDS ORDERED: MORPHINE SULFATE 4 MG/ML SYRINGE IV STA (16:16)
[2021-07-08] MEDS ORDERED: ONDANSETRON 4 MG/2 ML VIAL IVP STA (16:16)
[2021-07-08] MEDS ORDERED: SODIUM CHLORIDE 0.9% 500 ML 500 ML IV STA (16:16)
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
[2021-07-08 17:21] LABS: Basophils % (A) 0 %; Eosinophils # (A) 0.1 k/uL (0-0.7); Eosinophils % (A) 1 %; HCT 36.9 % (34.0-46.0); HGB 11.6 gm/dL (11.4-16.0); Lymphocytes # (A) 1.9 k/uL (1.0-4.8); Lymphocytes % (A) 28 %; MCH 27.2 pg (25.0-35.0); MCHC 31.5 g/dL (31.0-37.0); MCV 86.1 fL (80.0-100.0); Mean Platelet Volume 7.3; Monocytes # (A) 0.5 k/uL (0-1.0); Monocytes % (A) 7 %; Neutrophils # (A) 4.1 k/uL (1.3-7.7); Neutrophils % (A) 60 %; Platelet Count 223 k/uL (150-450); RBC 4.29 m/uL (3.80-5.40); RDW 14.4 % (11.5-15.5); WBC 6.8 k/uL (3.8-10.6)
[2021-07-08 17:29] LABS: Partial Thromboplastin Time 22.9 sec (22.0-30.0); Prothrombin Time 10.6 sec (9.0-12.0)
[2021-07-08 17:33] LABS: Albumin 4.2 g/dL (3.5-5.0); Calcium 9.2 mg/dL (8.4-10.2); Total Bilirubin 1.1 mg/dL (0.2-1.3)
[2021-07-08 17:43] LABS: Potassium 5.4 mmol/L (3.5-5.1)
[2021-07-08] MEDS ORDERED: HYDROmorphone 1 MG/ML 1 ML SYRINGE IVP STA (17:49)
[2021-07-08 18:00] LABS: Appearance,Urine Clear (Clear); Bilirubin,Urine Negative (Negative); Blood,Urine Negative (Negative); Color,Urine Yellow; Glucose,Urine (UA) Negative (Negative); Ketones,Urine Negative (Negative); Leukocyte Esterase,Urine Negative (Negative); Nitrite,Urine Negative (Negative); PH, Urine 6.5 (5.0-8.0); Protein,Urine Trace (Negative); Specific Gravity,Urine 1.029 (1.001-1.035); Urobilinogen,Urine <2.0 mg/dL (<2.0)
[2021-07-08 18:21] VITALS: PULSE 70
[2021-07-08] MEDS ORDERED: HYDROmorphone 0.5 MG/0.5 ML SYRINGE IVP STA (19:18)
[2021-07-08 19:42] VITALS: BP 109/73; RESP 20
== END 2021-07-08 19:57 | disposition home or self-care (01) ==
LOC: EC 15:23
DX: R10.84 Generalized abdominal pain (principal); R19.7 Diarrhea, unspecified; F31.9 Bipolar disorder, unspecified; F41.9 Anxiety disorder, unspecified; K21.9 Gastro-esophageal reflux disease without esophagitis; M19.90 Unspecified osteoarthritis, unspecified site; M79.7 Fibromyalgia; Z86.73 Personal history of transient ischemic attack (TIA), and cerebral infarction without residual deficits; Z87.891 Personal history of nicotine dependence; Z79.899 Other long term (current) drug therapy
CPT/HCPCS: 36415; 80053; 83605; 83690; 85025; 85610; 85730; 82272; 81003; 96374; 96375 ×2; 96376; 96361 ×3; 99284; J2270; J2405; J1170 ×2

== ENCOUNTER 2021-07-11 15:19 | Inpatient (IN) | payer MEDICARE ==
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
[2021-07-11] MEDS ORDERED: HYDROmorphone 1 MG/ML 1 ML SYRINGE IVP STA ×2 (15:44→18:41)
[2021-07-11] MEDS ORDERED: SODIUM CHLORIDE 0.9% 1,000 ML IV STA (15:44)
[2021-07-11] MEDS ORDERED: ONDANSETRON 4 MG/2 ML VIAL IVP STA (15:44)
[2021-07-11] MEDS ORDERED: LORazepam 2 MG/ML INJ IV STA (17:24)
[2021-07-11 18:12] LABS: Basophils % (A) 0 %; Eosinophils # (A) 0.1 k/uL (0-0.7); Eosinophils % (A) 1 %; HCT 37.7 % (34.0-46.0); HGB 11.9 gm/dL (11.4-16.0); Lymphocytes # (A) 1.6 k/uL (1.0-4.8); Lymphocytes % (A) 27 %; MCH 27.9 pg (25.0-35.0); MCHC 31.6 g/dL (31.0-37.0); MCV 88.4 fL (80.0-100.0); Mean Platelet Volume 7.6; Monocytes # (A) 0.4 k/uL (0-1.0); Monocytes % (A) 7 %; Neutrophils # (A) 3.5 k/uL (1.3-7.7); Neutrophils % (A) 61 %; Platelet Count 228 k/uL (150-450); RBC 4.27 m/uL (3.80-5.40); RDW 14.2 % (11.5-15.5); WBC 5.8 k/uL (3.8-10.6)
[2021-07-11 18:23] LABS: ALT 17 U/L (4-34); AST 27 U/L (14-36); African American GFR (CKD) >90 (>60 ml/min/1.73 sqM); Albumin 4.1 g/dL (3.5-5.0); Alkaline Phosphatase 79 U/L (38-126); Anion Gap 6 mmol/L; Blood Urea Nitrogen 12 mg/dL (7-17); Calcium 8.9 mg/dL (8.4-10.2); Carbon Dioxide 25 mmol/L (22-30); Chloride 106 mmol/L (98-107); Glucose 93 mg/dL (74-99); Lipase 36 U/L (23-300); Non-African American GFR(CKD) 84 (>60 ml/min/1.73 sqM); Sodium 137 mmol/L (137-145); Total Bilirubin 0.4 mg/dL (0.2-1.3); Total Protein 7.5 g/dL (6.3-8.2)
[2021-07-11 18:38] LABS: Prothrombin Time 10.5 sec (9.0-12.0)
[2021-07-11 18:42] LABS: Partial Thromboplastin Time 21.7 sec (22.0-30.0)
[2021-07-11] MEDS ORDERED: NALOXONE 0.4 MG/ML 1 ML VIAL IV PRN (18:53)
--- NOTE | 2021-07-11 18:55 | CT ---
EXAMINATION TYPE: CT abdomen pelvis w con DATE OF EXAM: 07/11/2021 COMPARISON: 06/08/2021 HISTORY: abdominal pain, fever CT DLP: 1254.2 mGycm Automated exposure control for dose reduction was used. CONTRAST: Performed with IV Contrast, patient injected with 100 mL of Isovue 300. There is mild subsegmental atelectasis at the right posterior lung base. There is no pleural effusion . There is no pericardial effusion. Liver shows normal size. Gallbladder appears normal. There are so me small hepatic cysts measuring up to 5 mm. Spleen is intact. There is no pancreatic mass. The stoma ch is intact. There is no adrenal mass. Kidneys have normal size and contour. There is left-sided renal parapelvic cysts. Ureters are not dilated. Delayed images show normal renal excretion. There is no retroperitone al adenopathy. There is metal artifact from multilevel posterior lumbar spine fusion surgery. Bladder distends smoothly. There is no inguinal hernia. There is no free fluid in the pelvis. There are surg ical clips at the sigmoid colon there is thin wall low-density cystic mass in the pelvis on the right side measuring 3.5 cm. There is no mesenteric edema. There is no ascites or free air. There is no bowel obstruction. There a re spondylotic changes in the lumbar spine with multilevel fusion surgery. There is metal artifact fr om disc prosthesis. The bony pelvis appears intact. There is no evidence of hip fracture. IMPRESSION: Multiple small hepatic cysts without change. Left renal parapelvic cyst without change. Cystic pelvic mass on the right side without change. No acute abnormality within the abdomen pelvis.
[2021-07-11 19:00] LABS: Appearance,Urine Clear (Clear); Bacteria,Urine Rare /hpf; Bilirubin,Urine Negative (Negative); Blood,Urine Negative (Negative); Color,Urine Light Yellow; Glucose,Urine (UA) Negative (Negative); Ketones,Urine Negative (Negative); Leukocyte Esterase,Urine Trace (Negative); Mucus,Urine Rare /hpf; Nitrite,Urine Negative (Negative); PH, Urine 6.5 (5.0-8.0); Protein,Urine Negative (Negative); RBC,Urine 1 /hpf (0-5); Specific Gravity,Urine 1.005 (1.001-1.035); Squamous Epithelial Cell,Urine 1 /hpf (0-4); Urobilinogen,Urine <2.0 mg/dL (<2.0); WBC,Urine 4 /hpf (0-5)
[2021-07-11] MEDS: tiZANidine 4 MG TAB PO SCH (21:30)
[2021-07-11] MEDS: DULoxetine HCL 60 MG CAPSULE.DR PO SCH (21:30)
[2021-07-11] MEDS: busPIRone HCl 10 MG TAB PO SCH (21:30)
[2021-07-11] MEDS: HYDROmorphone 0.5 MG/0.5 ML SYRINGE IVP PRN (22:01)
[2021-07-11] MEDS: PREGABALIN 25 MG CAP PO SCH (22:44)
[2021-07-12] MEDS: HYDROmorphone 0.5 MG/0.5 ML SYRINGE IVP PRN (01:13)
[2021-07-12] MEDS ORDERED: HYDROmorphone 1 MG/ML 1 ML SYRINGE IVP STA (01:32)
[2021-07-12] MEDS: HYDROmorphone 1 MG/ML 1 ML SYRINGE IVP PRN ×5 (06:09→22:15)
[2021-07-12] MEDS: PANTOPRAZOLE 40 MG TABLET PO SCH (08:01)
[2021-07-12] MEDS: busPIRone HCl 10 MG TAB PO SCH ×2 (08:02→21:06)
[2021-07-12] MEDS: PREGABALIN 25 MG CAP PO SCH ×2 (08:02→21:05)
[2021-07-12 09:18] LABS: Basophils # (A) 0.04 X 10*3/uL (0.00-0.10); Basophils % (A) 0.8 %; Eosinophils # (A) 0.09 X 10*3/uL (0.04-0.35); Eosinophils % (A) 1.7 %; HCT 33.8 % (37.2-46.3); HGB 10.7 g/dL (12.0-15.0); Lymphocytes # (A) 1.99 X 10*3/uL (0.90-5.00); Lymphocytes % (A) 37.9 %; MCH 27.6 pg (27.0-32.0); MCHC 31.7 g/dL (32.0-37.0); MCV 87.1 fL (80.0-97.0); Mean Platelet Volume 10.3 fL (9.5-12.2); Monocytes # (A) 0.73 X 10*3/uL (0.20-1.00); Monocytes % (A) 13.9 %; Neutrophils # (A) 2.38 X 10*3/uL (1.80-7.70); Neutrophils % (A) 45.3 %; Platelet Count 243 X 10*3/uL (140-440); RBC 3.88 X 10*6/uL (4.10-5.20); RDW 14.8 % (11.5-14.5); WBC 5.25 X 10*3/uL (4.50-10.00)
[2021-07-12 10:08] LABS: ALT 17 U/L (8-44); AST 25 U/L (13-35); African American GFR (CKD) 86.3 (60.0-200.0); Albumin 3.9 g/dL (3.8-4.9); Albumin/Globulin Ratio 1.49 (1.60-3.17); Alkaline Phosphatase 65 U/L (41-126); BUN/Creat Ratio 13.11 Ratio (12.00-20.00); Calcium 8.6 mg/dL (8.7-10.3); Carbon Dioxide 23.1 mmol/L (21.6-31.8); Chloride 105 mmol/L (96-109); Globulin 2.6 g/dL (1.6-3.3); Glucose 110 mg/dL (70-110); Non-African American GFR(CKD) 74.5 (60.0-200.0); Potassium 3.9 mmol/L (3.5-5.5); Sodium 139 mmol/L (135-145); Total Bilirubin <0.20 mg/dL (0.30-1.20); Total Protein 6.5 g/dL (6.2-8.2)
[2021-07-12] MEDS: LORazepam 0.5 MG TAB PO PRN ×2 (12:24→21:06)
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
[2021-07-12] MEDS: HEPARIN SODIUM,PORCINE/PF 5,000 UNIT/0.5 ML SYRINGE SQ SCH (16:51)
[2021-07-12] MEDS ORDERED: MELATONIN 5 MG TABLET PO PRN (18:09)
[2021-07-12] MEDS ORDERED: SIMETHICONE 80 MG CHEWABLE PO SCH (21:00)
[2021-07-12] MEDS: DULoxetine HCL 60 MG CAPSULE.DR PO SCH (21:05)
[2021-07-12] MEDS: tiZANidine 4 MG TAB PO SCH (21:06)
[2021-07-12] MEDS: SIMETHICONE 80 MG CHEWABLE PO SCH (22:17)
[2021-07-12] MEDS ORDERED: TEMAZEPAM 7.5 MG CAP PO ONE (23:00)
[2021-07-13] MEDS: HEPARIN SODIUM,PORCINE/PF 5,000 UNIT/0.5 ML SYRINGE SQ SCH ×3 (00:36→15:48)
[2021-07-13] MEDS: HYDROmorphone 1 MG/ML 1 ML SYRINGE IVP PRN ×5 (02:37→21:12)
[2021-07-13] MEDS: LORazepam 0.5 MG TAB PO PRN ×3 (06:14→22:18)
[2021-07-13] MEDS ORDERED: ACETAMINOPHEN TAB 500 MG TAB PO PRN (06:54)
[2021-07-13] MEDS: PANTOPRAZOLE 40 MG TABLET PO SCH (07:08)
[2021-07-13 07:25] LABS: Basophils % (A) 1 %; Eosinophils # (A) 0.1 k/uL (0-0.7); Eosinophils % (A) 3 %; HCT 36.4 % (34.0-46.0); HGB 11.3 gm/dL (11.4-16.0); Lymphocytes # (A) 1.8 k/uL (1.0-4.8); Lymphocytes % (A) 40 %; MCH 27.1 pg (25.0-35.0); MCHC 31.1 g/dL (31.0-37.0); MCV 87.3 fL (80.0-100.0); Mean Platelet Volume 7.6; Monocytes # (A) 0.4 k/uL (0-1.0); Monocytes % (A) 8 %; Neutrophils % (A) 45 %; Platelet Count 238 k/uL (150-450); RBC 4.16 m/uL (3.80-5.40); RDW 14.1 % (11.5-15.5); WBC 4.5 k/uL (3.8-10.6)
[2021-07-13 07:34] LABS: Calcium 8.9 mg/dL (8.4-10.2); Magnesium 2.2 mg/dL (1.6-2.3); Potassium 4.1 mmol/L (3.5-5.1)
[2021-07-13] MEDS: MORPHINE SULFATE ER 30 MG TABLET PO SCH ×3 (08:32→21:10)
[2021-07-13] MEDS: busPIRone HCl 10 MG TAB PO SCH ×2 (08:32→21:11)
[2021-07-13] MEDS: PREGABALIN 25 MG CAP PO SCH ×2 (08:33→21:10)
[2021-07-13] MEDS: SIMETHICONE 80 MG CHEWABLE PO SCH ×2 (08:33→21:11)
[2021-07-13] MEDS: DORZOLAMIDE-TIMOLOL 2.23%/0.68 10ML BTL BOTH EYES SCH ×2 (08:33→21:10)
[2021-07-13] MEDS: DICYCLOMINE 20 MG TAB PO SCH ×3 (08:33→22:18)
[2021-07-13] MEDS: oxyCODONE-APAP 10-325MG 1 EACH TAB PO PRN (10:39)
[2021-07-13] MEDS: LACTATED RINGERS 1,000 ML IV SCH ×2 (11:11→15:49)
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
--- NOTE | 2021-07-13 18:30 | P.PN ---
Progress Note - Text Progress Note Date: 07/13/21 Contacted by shelter staff regarding patient's concerns. Patient seen and examined at bedside. Patient complaining of extreme lower lumbar sacral pain. Ordered MRI of lumbar sacral, consult with orthopedics for expert opinion and recommendations. Patient agreeable to treatment plan.
[2021-07-13] MEDS ORDERED: TEMAZEPAM 15 MG CAP PO SCH (21:00)
[2021-07-13] MEDS ORDERED: MIRTAZAPINE 45 MG TABLET PO SCH (21:00)
[2021-07-13] MEDS ORDERED: TEMAZEPAM 7.5 MG CAP PO SCH (21:00)
[2021-07-13] MEDS: DULoxetine HCL 60 MG CAPSULE.DR PO SCH (21:10)
[2021-07-13] MEDS: LATANOPROST 0.005% OPHTH DROPS 2.5 ML BTL BOTH EYES SCH (21:11)
[2021-07-13] MEDS: tiZANidine 4 MG TAB PO SCH (21:11)
[2021-07-13] MEDS: FLUTICASONE 50MCG/SPRAY NASAL 16GM EA NOSTRIL SCH (21:11)
[2021-07-14] MEDS: HEPARIN SODIUM,PORCINE/PF 5,000 UNIT/0.5 ML SYRINGE SQ SCH ×4 (02:23→22:12)
[2021-07-14] MEDS: HYDROmorphone 1 MG/ML 1 ML SYRINGE IVP PRN (03:15)
[2021-07-14] MEDS: oxyCODONE-APAP 10-325MG 1 EACH TAB PO PRN ×2 (04:22→11:50)
[2021-07-14 04:27] LABS: Basophils % (A) 1 %; Eosinophils # (A) 0.1 k/uL (0-0.7); Eosinophils % (A) 3 %; HCT 37.8 % (34.0-46.0); HGB 11.5 gm/dL (11.4-16.0); Lymphocytes # (A) 1.9 k/uL (1.0-4.8); Lymphocytes % (A) 40 %; MCH 26.8 pg (25.0-35.0); MCHC 30.3 g/dL (31.0-37.0); MCV 88.3 fL (80.0-100.0); Mean Platelet Volume 7.5; Monocytes # (A) 0.4 k/uL (0-1.0); Monocytes % (A) 8 %; Neutrophils # (A) 2.2 k/uL (1.3-7.7); Neutrophils % (A) 45 %; Platelet Count 244 k/uL (150-450); RBC 4.28 m/uL (3.80-5.40); RDW 14.1 % (11.5-15.5); WBC 4.8 k/uL (3.8-10.6)
[2021-07-14 04:31] LABS: Calcium 9.3 mg/dL (8.4-10.2); Potassium 4.7 mmol/L (3.5-5.1)
[2021-07-14] MEDS: LACTATED RINGERS 1,000 ML IV SCH ×3 (04:34→23:41)
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
[2021-07-14] MEDS: MORPHINE SULFATE ER 30 MG TABLET PO SCH ×3 (07:33→22:12)
[2021-07-14] MEDS: PANTOPRAZOLE 40 MG TABLET PO SCH (07:33)
[2021-07-14] MEDS: LORazepam 0.5 MG TAB PO PRN (07:33)
[2021-07-14] MEDS: PREGABALIN 25 MG CAP PO SCH ×2 (07:41→22:10)
[2021-07-14] MEDS: SIMETHICONE 80 MG CHEWABLE PO SCH ×2 (07:41→22:11)
[2021-07-14] MEDS: DICYCLOMINE 20 MG TAB PO SCH ×3 (07:41→22:11)
[2021-07-14] MEDS: DORZOLAMIDE-TIMOLOL 2.23%/0.68 10ML BTL BOTH EYES SCH ×2 (07:42→22:12)
[2021-07-14] MEDS: busPIRone HCl 10 MG TAB PO SCH ×2 (07:42→22:09)
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
[2021-07-14] MEDS ORDERED: HYDROmorphone 1 MG/ML 1 ML SYRINGE IVP STA (14:53)
[2021-07-14] MEDS ORDERED: diazePAM 5 MG TAB PO STA (16:41)
[2021-07-14] MEDS ORDERED: HYDROmorphone 1 MG/ML 1 ML SYRINGE IVP PRN (17:15)
[2021-07-14] MEDS ORDERED: LORazepam 2 MG/ML INJ IV STA (17:37)
--- NOTE | 2021-07-14 19:06 | MR ---
EXAMINATION TYPE: MR lumbar spine wo con DATE OF EXAM: 07/14/2021 COMPARISON: 05/17/2016 HISTORY: LBP, BLE pain/weakness. Hx surgery. Multiplanar multiecho imaging of the lumbar spine without contrast. There is posterior multilevel fusion surgery with rods and screws from the level of L2-S1. There is a pparent osteosclerosis and decreased signal on both sides of the L1-2 disc space. There is no signifi cant compression deformity. There is multilevel laminectomy defect. Sacroiliac joints are intact. Jorge ral foramina are not well seen due to metal artifact. There is no sign of lumbar spinal stenosis. The re is no lumbar paraspinal mass. There is posterior L5 epidural fluid collection measuring 1.6 cm con sistent with a seroma. Unchanged. There is 3 cm cystic fluid collection in the pelvis posterior to th e urinary bladder at the level of the S3 vertebra that could be bladder diverticulum. IMPRESSION: Multilevel posterior fusion surgery is a change compared to old exam. Multilevel laminectomy. No spin al stenosis. No significant compression deformity. No adverse change compared to old exam of 6 before the fusion surgery.
--- NOTE | 2021-07-14 19:34 | MR ---
EXAMINATION TYPE: MR shoulder LT wo con DATE OF EXAM: 07/14/2021 COMPARISON: None HISTORY: Left shoulder pain. Multiplanar multiecho imaging of the left shoulder without contrast. There is a large shoulder joint effusion. The biceps tendon is intact. Subscapularis tendon is intact . Glenoid darci appear intact. There is subacromial joint space narrowing. There is small subdeltoid effusion. Exam is limited by mo tion. As best as one can tell there is a large bare area over the superior aspect of the humeral head related to full-thickness rotator cuff tear. There is partial retraction of the supraspinatus tendon . I see no fracture line. There is some apparent small degenerative cyst formation in the greater tub erosity of the humerus. IMPRESSION: Large shoulder joint effusion and subdeltoid effusion. Large full-thickness tear of the supraspinatus tendon on the anterior aspect. No fracture seen. Mild subacromial joint space narrowing.
[2021-07-14] MEDS: ACETAMINOPHEN IV (For NPO) 1,000 MG in EMPTY BAG 1 BAG IVPB SCH (20:52)
[2021-07-14] MEDS ORDERED: DULoxetine HCL 30 MG CAPSULE.DR PO SCH (21:00)
[2021-07-14] MEDS ORDERED: MELATONIN 5 MG TABLET PO SCH (21:00)
[2021-07-14] MEDS ORDERED: QUEtiapine 25 MG TAB PO SCH (21:00)
[2021-07-14] MEDS: MELOXICAM 7.5 MG TAB PO SCH (22:08)
[2021-07-14] MEDS: tiZANidine 4 MG TAB PO SCH (22:11)
[2021-07-14] MEDS: FLUTICASONE 50MCG/SPRAY NASAL 16GM EA NOSTRIL SCH (22:13)
[2021-07-14] MEDS: LATANOPROST 0.005% OPHTH DROPS 2.5 ML BTL BOTH EYES SCH (22:14)
[2021-07-15] MEDS: ACETAMINOPHEN IV (For NPO) 1,000 MG in EMPTY BAG 1 BAG IVPB SCH ×3 (05:58→11:45)
[2021-07-15 08:02] LABS: Basophils % (A) 1 %; Eosinophils # (A) 0.1 k/uL (0-0.7); Eosinophils % (A) 3 %; HCT 36.4 % (34.0-46.0); HGB 11.3 gm/dL (11.4-16.0); Lymphocytes # (A) 1.5 k/uL (1.0-4.8); Lymphocytes % (A) 30 %; MCH 27.4 pg (25.0-35.0); MCHC 31.2 g/dL (31.0-37.0); MCV 87.9 fL (80.0-100.0); Mean Platelet Volume 7.9; Monocytes # (A) 0.4 k/uL (0-1.0); Monocytes % (A) 8 %; Neutrophils # (A) 2.7 k/uL (1.3-7.7); Neutrophils % (A) 55 %; Platelet Count 235 k/uL (150-450); RBC 4.14 m/uL (3.80-5.40); RDW 14.2 % (11.5-15.5); WBC 4.8 k/uL (3.8-10.6)
[2021-07-15 08:21] LABS: Albumin 3.9 g/dL (3.5-5.0); Calcium 9.4 mg/dL (8.4-10.2); Potassium 4.8 mmol/L (3.5-5.1); Total Bilirubin 0.4 mg/dL (0.2-1.3); Total Protein 7.3 g/dL (6.3-8.2)
[2021-07-15] MEDS: busPIRone HCl 10 MG TAB PO SCH (08:46)
[2021-07-15] MEDS: PANTOPRAZOLE 40 MG TABLET PO SCH (08:46)
[2021-07-15] MEDS: DICYCLOMINE 20 MG TAB PO SCH ×2 (08:46→16:50)
[2021-07-15] MEDS: HEPARIN SODIUM,PORCINE/PF 5,000 UNIT/0.5 ML SYRINGE SQ SCH ×2 (08:46→16:46)
[2021-07-15] MEDS: MORPHINE SULFATE ER 30 MG TABLET PO SCH ×2 (08:47→16:50)
[2021-07-15] MEDS: PREGABALIN 25 MG CAP PO SCH (08:47)
[2021-07-15] MEDS: DORZOLAMIDE-TIMOLOL 2.23%/0.68 10ML BTL BOTH EYES SCH (08:49)
[2021-07-15] MEDS: SIMETHICONE 80 MG CHEWABLE PO SCH (08:50)
[2021-07-15] MEDS: MELOXICAM 7.5 MG TAB PO SCH (09:21)
[2021-07-15] MEDS ORDERED: oxyCODONE-APAP 10-325MG 1 EACH TAB PO PRN (09:35)
[2021-07-15 10:52] VITALS: RESP 18
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
[2021-07-15 15:38] VITALS: BP 142/69; PULSE 78; TEMP 98.6
[2021-07-15] MEDS: LACTATED RINGERS 1,000 ML IV SCH (16:49)
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
== END 2021-07-15 17:51 | disposition home health service (06) | DRG 392 ==
LOC: EC 15:19 → 6NMEDSUR 18:53 → 1SOBS 07-12 13:48 → OBSVTOIN 07-14 08:00
PROVIDERS: ADMIT Family Medicine; ATTEND Family Medicine
DX: R10.9 Unspecified abdominal pain (principal); R45.851 Suicidal ideations; F33.9 Major depressive disorder, recurrent, unspecified; M53.3 Sacrococcygeal disorders, not elsewhere classified; M25.512 Pain in left shoulder; F45.42 Pain disorder with related psychological factors; F43.10 Post-traumatic stress disorder, unspecified; Z20.822 Contact with and (suspected) exposure to COVID-19; G89.4 Chronic pain syndrome; M25.561 Pain in right knee; M25.562 Pain in left knee; R19.7 Diarrhea, unspecified; R19.00 Intra-abdominal and pelvic swelling, mass and lump, unspecified site; K76.89 Other specified diseases of liver; E78.5 Hyperlipidemia, unspecified; K21.9 Gastro-esophageal reflux disease without esophagitis; M19.90 Unspecified osteoarthritis, unspecified site; F41.8 Other specified anxiety disorders; M79.7 Fibromyalgia; M54.59 Other low back pain; G47.30 Sleep apnea, unspecified; R41.3 Other amnesia; D64.9 Anemia, unspecified; F41.3 Other mixed anxiety disorders; H40.9 Unspecified glaucoma; N28.1 Cyst of kidney, acquired; H26.9 Unspecified cataract; F41.0 Panic disorder [episodic paroxysmal anxiety]; Z98.1 Arthrodesis status; Z90.49 Acquired absence of other specified parts of digestive tract; Z90.710 Acquired absence of both cervix and uterus; Z96.653 Presence of artificial knee joint, bilateral; Z96.698 Presence of other orthopedic joint implants; Z98.42 Cataract extraction status, left eye; Z88.5 Allergy status to narcotic agent; Z88.8 Allergy status to other drugs, medicaments and biological substances; Z79.899 Other long term (current) drug therapy; Z79.891 Long term (current) use of opiate analgesic; Z86.73 Personal history of transient ischemic attack (TIA), and cerebral infarction without residual deficits; Z87.828 Personal history of other (healed) physical injury and trauma; Z87.891 Personal history of nicotine dependence; Z88.7 Allergy status to serum and vaccine; Z87.19 Personal history of other diseases of the digestive system
CPT/HCPCS: 36415; 72148; 74177; 80048; 80053; 81001; 83605; 83690; 83735; 85025; 85610; 85730; 87635; 96361; 96374; 96375; 99285

== ENCOUNTER → 2021-08-13 | Outpatient (CLI) | payer MEDICARE ==
[2021-08-13 23:15] LABS: Basophils # (A) 0.03 X 10*3/uL (0.00-0.10); Basophils % (A) 0.5 %; Eosinophils # (A) 0.12 X 10*3/uL (0.04-0.35); Eosinophils % (A) 2.1 %; HCT 34.3 % (37.2-46.3); HGB 10.8 g/dL (12.0-15.0); Lymphocytes # (A) 2.26 X 10*3/uL (0.90-5.00); Lymphocytes % (A) 39.4 %; MCH 27.4 pg (27.0-32.0); MCHC 31.5 g/dL (32.0-37.0); MCV 87.1 fL (80.0-97.0); Mean Platelet Volume 12.5 fL (9.5-12.2); Monocytes # (A) 0.69 X 10*3/uL (0.20-1.00); Neutrophils # (A) 2.61 X 10*3/uL (1.80-7.70); Neutrophils % (A) 45.7 %; Platelet Count 146 X 10*3/uL (140-440); RBC 3.94 X 10*6/uL (4.10-5.20); RDW 14.6 % (11.5-14.5); WBC 5.73 X 10*3/uL (4.50-10.00)
[2021-08-13 23:22] LABS: INR 0.94 (0.90-1.11); Prothrombin Time 10.4 sec (9.9-11.9)
[2021-08-14 00:58] LABS: ALT 14 U/L (8-44); AST 24 U/L (13-35); African American GFR (CKD) 71.9 (60.0-200.0); Albumin 4.5 g/dL (3.8-4.9); Albumin/Globulin Ratio 1.55 (1.60-3.17); Alkaline Phosphatase 69 U/L (41-126); BUN/Creat Ratio 29.49 Ratio (12.00-20.00); Blood Urea Nitrogen 26.1 mg/dL (9.0-27.0); Calcium 9.5 mg/dL (8.7-10.3); Carbon Dioxide 22.2 mmol/L (21.6-31.8); Chloride 101 mmol/L (96-109); Globulin 2.9 g/dL (1.6-3.3); Glucose 90 mg/dL (70-110); Non-African American GFR(CKD) 62.1 (60.0-200.0); Potassium 4.2 mmol/L (3.5-5.5); Sodium 137 mmol/L (135-145); Total Bilirubin <0.20 mg/dL (0.30-1.20); Total Protein 7.4 g/dL (6.2-8.2)
== END | disposition home or self-care (01) ==
LOC: LABWHC1 14:05
PROVIDERS: ATTEND Nurse Practitioner
DX: I10 Essential (primary) hypertension (principal); A49.02 Methicillin resistant Staphylococcus aureus infection, unspecified site
CPT/HCPCS: 36415; 80053; 85025; 85610; 87070

== ENCOUNTER → 2021-08-13 | Outpatient (CLI) | payer MEDICARE ==
--- NOTE | 2021-08-13 15:03 | XR ---
EXAMINATION TYPE: XR chest 2V DATE OF EXAM: 08/13/2021 COMPARISON: 02/14/2021 HISTORY: 81-year-old female I 10, hypertension TECHNIQUE: Frontal and lateral views FINDINGS: Heart normal size. Tortuosity/ectasia of the thoracic aorta. Strandy atelectasis in the lower lungs. No kael consolidation or pleural effusion. Gassy bowel loops in the visualized upper abdomen. IMPRESSION: Some strandy lower lung atelectasis. No acute process seen.
== END | disposition home or self-care (01) ==
LOC: RADXRMAIN 14:33
PROVIDERS: ATTEND Nurse Practitioner
DX: I10 Essential (primary) hypertension (principal); J98.11 Atelectasis
CPT/HCPCS: 71046

== ENCOUNTER 2021-08-31 08:13 | Inpatient (IN) | payer MEDICARE, OTHER ==
[2021-08-25 09:40] VITALS: BMI 30.8
--- NOTE | 2021-08-30 13:14 | HP ---
HISTORY AND PHYSICAL CHIEF COMPLAINT: Left shoulder pain and weakness. HISTORY OF PRESENT ILLNESS: The patient is a 81-year-old right-hand dominant female who presents after injuring her left shoulder in April of this year after a fall with persistent pain and weakness. She is having pain with any attempted overhead use and at night. She is on oral morphine and Percocet for chronic low back pain. She denies previous problems. She tried therapy with worsening of her symptoms. PAST MEDICAL HISTORY: Significant for bipolar disorder, arthritis, and chronic pain syndrome. PAST SURGICAL HISTORY: Significant for spinal surgery, bilateral total knee arthroplasty. CURRENT MEDS: Lyrica, morphine, Restoril, Xanax, and Percocet. FAMILY HISTORY: Significant for heart disease and cancer. SOCIAL HISTORY: Significant for previous tobacco use. However she quit in 1983. REVIEW OF SYSTEMS: Sixteen-point review of systems otherwise reviewed and is noncontributory. PHYSICAL EXAMINATION: On examination, the patient is approximately 5 foot 6, 191 pounds of endomorphic habitus. HEENT exam is nonfocal. NECK is supple. On examination of her left SHOULDER, she is tender about the anterior subacromial space and glenohumeral joint. She has moderate crepitus. Active range of motion, forward elevation 95 degrees, external rotation, arm at side 30 degrees, internal rotation to L1. Passive forward elevation is 150 degrees. Motor strength is 4- over 5 for abduction and external rotation. Impingement tests, Neer test, and Speed test are positive. Her distal neurovascular exam appears intact in left upper extremity. MRI report 07/14/2021 of the left shoulder shows a large retracted rotator cuff tear with significant joint effusion. 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 RECOMMENDATIONS: I talked to the patient at length regarding her condition and treatment options. At this point, she remains quite symptomatic despite previous conservative measures with medications and therapy. After thorough discussion, she opts to proceed with surgery. We will plan to proceed with left reverse total shoulder arthroplasty. We will likely keep the patient for 23 hour hold postoperative. Risks and benefits were discussed at length in layman's terms. MMODL / IJN: [id number] / RITO
[~2021-08-31 08:13] MED LIST changes: +.fentaNYL (PF) 50 MCG/ML AMP IV PRN; -ACETAMINOPHEN TAB 500 MG TAB PO ONE; +ACETAMINOPHEN TAB 500 MG TAB PO PRN; -ALVIMOPAN 12 MG CAPSULE PO ONE; -Antibiotics per Pharmacy 1 EACH MISC MISCELLANE PRN; -DEXAMETHASONE SOD PHOSPHATE 10 MG/ML 1 ML VIAL IV ONE; +DEXAMETHASONE SOD PHOSPHATE 4 MG/ML 1 ML VIAL IV ONE; -HEPARIN SODIUM,PORCINE 5,000 UNIT/ML 1 ML VIAL SQ ONE; -LIDOCAINE 1% (10MG/ML) FOR IV START INTRADERMA PRN; +MELOXICAM 7.5 MG TAB PO PRN; -MIDAZOLAM 2 MG/2 ML VIAL IV PRN; +TRANEXAMIC ACID 1,000 MG in SODIUM CHLORIDE 0.9% 100 ML IVPB PRN; -metroNIDAZOLE-NS PMX 500 MG in SALINE 1 100ML.BAG IVPB ONE
[2021-08-31] MEDS ORDERED: LIDOCAINE 1% (10MG/ML) FOR IV START INTRADERMA ONE (09:30)
[2021-08-31] MEDS: LACTATED RINGERS 1,000 ML IV SCH (09:30)
[2021-08-31] MEDS ORDERED: DEXAMETHASONE SOD PHOSPHATE 4 MG/ML 1 ML VIAL IVP ONE (09:31)
[2021-08-31] MEDS ORDERED: ONDANSETRON 4 MG/2 ML VIAL IVP ONE ×2 (09:31)
[2021-08-31] MEDS ORDERED: .fentaNYL (PF) 50 MCG/ML AMP IVP ONE (10:02)
[2021-08-31] MEDS ORDERED: MIDAZOLAM 2 MG/2 ML VIAL IVP ONE (10:02)
[2021-08-31] MEDS ORDERED: ROPIVACAINE 5 MG/ML 30 ML VIAL ONE (10:42)
[2021-08-31] MEDS ORDERED: LIDOCAINE 1% INJ 10MG/ML (20 ML MDV) ONE (10:42)
[2021-08-31] MEDS ORDERED: PHENYLEPHRINE-0.9% NACL SYG 1,000 MCG/10 ML SYRINGE ONE (10:42)
[2021-08-31] MEDS ORDERED: PROPOFOL 10 MG/ML 20 ML VIAL IV ONE (10:42)
[2021-08-31] MEDS ORDERED: NEOSTIGMINE 1 MG/ML 10 ML VIAL ONE (10:42)
[2021-08-31] MEDS ORDERED: .fentaNYL (PF) 50 MCG/ML AMP ONE (10:42)
[2021-08-31] MEDS ORDERED: MIDAZOLAM 2 MG/2 ML VIAL ONE (10:42)
[2021-08-31] MEDS ORDERED: GLYCOPYRROLATE 0.2 MG/ML 2 ML VIAL ONE (10:42)
[2021-08-31] MEDS ORDERED: TRANEXAMIC ACID 1,000 MG/10 ML VIAL ONE (10:42)
[2021-08-31] MEDS ORDERED: SODIUM CHLORIDE 0.9% 100 ML BAG ONE (10:42)
[2021-08-31] MEDS ORDERED: SUCCINYLCHOLINE CHLORIDE 100 MG/5 ML SYR IV ONE (10:42)
[2021-08-31] MEDS ORDERED: ROCURONIUM 10 MG/ML (5 ML VIAL) IV ONE (10:42)
[2021-08-31] MEDS ORDERED: ceFAZolin 1,000 MG in SODIUM CHLORIDE 0.9% 1,000 ML IRRIGATION ONE (11:12)
--- NOTE | 2021-08-31 12:29 | P.ANPRN ---
Procedure Note - Anesthesia - Nerve Block Performed Left Interscalene Single Time Out Performed: Yes (1001) Date of Procedure: 08/31/21 Procedure Start Time: 10:02 Procedure Stop Time: 10:08 Location of Patient: PreOp Indication: Acute Post-Operative Pain, Requested by Surgeon Specifically requested for management of pain by : Anshul Manzanares Sedation Type: Sedate with meaningful contact maintained Preparation: Sterile Prep Position: Supine Catheter: None Needle Types: Pajunk Needle Gauge: 21 Ultrasound used to visualize needle placement: Yes Ultrasound used to observe medication spread: Yes Injectate: 0.5% Ropivacaine (see comment for volume) (30cc) Blood Aspirated: No Pain Paresthesia on Injection Noted: No Resistance on Injection: Normal Image Stored and Saved: Yes Events: Uneventful and Well Tolerated
[2021-08-31] MEDS ORDERED: LACTATED RINGERS 1,000 ML IV ONE (12:30)
[2021-08-31] MEDS ORDERED: HYDROmorphone 0.5 MG/0.5 ML SYRINGE IVP PRN (12:50)
[2021-08-31] MEDS ORDERED: ONDANSETRON 4 MG/2 ML VIAL IVP PRN (12:50)
--- NOTE | 2021-08-31 13:13 | P.OP ---
Date of Procedure: 08/31/21 Preoperative Diagnosis: Left rotator cuff arthropathy/chronic large rotator cuff tear Postoperative Diagnosis: Same Procedure(s) Performed: Left reverse total shoulder arthroplasty Implants: Depuy Delta Xtend size 12 press-fit humeral stem, size 1 epiphysis, 38+9 articular surface, 38 mm glenosphere with +10 standard baseplate Anesthesia: alexis WHEELER Surgeon: Anshul Manzanares Business Performance Advisor #1: Ramos Vela Estimated Blood Loss (ml): 150 Pathology: other (Humeral head) Condition: stable Disposition: PACU Indications for Procedure: The patient's a 81-year-old female presents with progressive left shoulder pain along with weakness despite conservative measures. Upon evaluation she is noted have a chronic retracted rotator cuff tear with arthropathy. A discussion of the risks and benefits of operative intervention versus continued conservative measures was made with patient. She opted to proceed with surgery. Operative risks to include infection, neurovascular injury, development of blood clots, fracture, instability, possible need for subsequent procedures was discussed. Informed consent was obtained. Operative Findings: As below Description of Procedure: The patient was brought to the operating room, and after induction of general anesthesia was placed in a beachchair position. The bony prominences were appropriately padded. I examined the left shoulder. There was moderate lack of passive forward elevation and external rotation. The left upper extremity was prepped and draped in normal fashion. The bony outlines the coracoid process, distal clavicle, and acromion were outlined with a skin marker. A 12 centimeter deltopectoral incision was made lateral to the coracoid process. Skin was incised sharply. Subcutaneous tissues were divided bluntly. Electrocautery was used for hemostasis. The cephalic vein was identified and gently retracted laterally with the deltoid. The deltopectoral was bluntly developed. Subdeltoid adhesions were then released. The self-retaining retractor was placed. The conjoined tendon was retracted medially and the deltoid laterally. The biceps was identified. Its sheath was opened. A biceps tenotomy was performed along the remaining tendon did retract distally. Pseudocapsule was excised. The subscapularis was peeled off the lesser tuberosity and tagged. The head was then exposed. The shoulder was dislocated. A starting hole was made in line with the humeral shaft. The canal was reamed by hand up to size 12. There was good distal chatter. The cutting guide was then placed. I p lanned on 20 of retroversion. The humeral head cut was then made. The bone was removed in one fragment. Residual inferomedial osteophytes were removed flush with the [place] cortical bone. Attention was then paid towards preparing the glenoid. An anterior and posterior retractors placed. The labrum was released from the 6-12 o'clock position. Remaining biceps was removed as well. A guidepin was placed in the inferior aspect of the glenoid with the guide slightly tilting inferior. The reamer was used down to a bleeding bony surface. The central peg hole was drilled. The standard +10 baseplate was inserted with good purchase. Inferior, superior, and anterior locking screws the appropriate length were placed. Good purchase was obtained. The 38 mm glenosphere was inserted over a guidewire. This was fully seated. Care was taken to avoid any soft tissue interposition. Attention was then paid towards preparing the proximal humerus. The appropriate broach was placed and 20 of retroversion and was fully seated. An eccentric size 1 epiphyseal reamer was utilized. A size 12 stem with a size 1 epiphysis was placed and 20 of retroversion. Trial reduction was obtained with a 38 mm + 9 articular surface. The shoulder was taken through range of motion. He was felt to be stable in flexion and extension with internal and external rotation. I felt there was adequate r estoration of soft tissue tension judging off the conjoined tendon. The shoulder was gently dislocated. The trial components were then removed. The final size 12 press-fit stem along with a size 1 epiphysis was fully seated. There was good rotational stability. The 38 mm + 9 articular surface was impacted. The shoulder again was gently reduced and taken through range of motion. Again it was felt to be stable in all planes. Pulsatile lavage was utilized. The subscapularis was a attached to the lesser tuberosity with #2 Ethibond suture. The deltopectoral interval was closed with interrupted 2-0 Vicryl sutures. The skin was reapproximated with 3-0 subcuticular Prolene suture. Steri-Strips were applied. A sterile dressing was applied. A sling was placed. The patient was awoken from general anesthesia and transferred to recovery room in good condition. Blood loss was estimated at 150 mL. No complications were incurred. Sponge and needle counts were correct at the end the case. Ross MONTE assisted during the major components of the case to include exposure, glenoid and humeral preparation, implantation, and closure.
--- NOTE | 2021-08-31 13:58 | XR ---
EXAMINATION TYPE: XR shoulder limited LT DATE OF EXAM: 08/31/2021 CLINICAL HISTORY: Left shoulder pain and osteoarthritis TECHNIQUE: Single portable view of the left shoulder is obtained immediately postoperatively. COMPARISON: None. FINDINGS: Metallic hardware from a reverse left shoulder arthroplasty is present. Position is satisfa ctory. Air from surgical procedure noted. Visualized left lung shows basilar atelectatic change. IMPRESSION: As above.
[2021-08-31] MEDS: MORPHINE SULFATE ER 30 MG TABLET PO SCH ×2 (17:04→22:58)
[2021-08-31] MEDS: HYDROmorphone 1 MG/ML 1 ML SYRINGE IVP PRN ×2 (17:28→20:33)
[2021-09-01] MEDS: HYDROmorphone 1 MG/ML 1 ML SYRINGE IVP PRN ×6 (01:38→20:56)
[2021-09-01] MEDS: LACTATED RINGERS 1,000 ML IV SCH (07:22)
[2021-09-01] MEDS: MORPHINE SULFATE ER 30 MG TABLET PO SCH (08:58)
[2021-09-01] MEDS: oxyCODONE-APAP 10-325MG 1 EACH TAB PO PRN (09:00)
--- NOTE | 2021-09-01 10:07 | P.PN ---
Subjective Progress Note Date: 09/01/21 Principal diagnosis: Status post left reverse total shoulder arthroplasty Patient is evaluated at bedside, her is present with her at bedside. Patient admits to significant discomfort involving the left shoulder. Currently he denies any headaches, lightheadedness, chest pain or shortness of breath. She denies any fever or chills, nausea or vomiting. Objective - Vital Signs Vital signs: Vital Signs Temp 99.1 F 09/01/21 04:44 Pulse 101 H 09/01/21 04:44 Resp 16 09/01/21 04:44 BP 121/70 09/01/21 04:44 Pulse Ox 92 L 09/01/21 04:44 Intake & Output 08/31/21 09/01/21 09/01/21 18:59 06:59 18:59 Intake Total 1851 Output Total 150 Balance 1701 Weight 85.3 kg Intake: IV 1851 Output: Estimated Blood Loss 150 Other: Voiding Method Bedpan # Voids 1 3 - Exam Left upper extremity: Postoperative minutes in good position and condition, no active drainage is visualized. There is mild soft tissue swelling present in the upper arm. Sensation to light touch is intact of the upper extremity. Her motion is intact with regards to flexion and extension at the elbow, hand and wrist. Shoulder range of motion was not assessed. Radial / ulnar pulses are 2+ Assessment and Plan Assessment: Postoperative day #1 status post left reverse total shoulder arthroplasty Plan: Pain control, the long discussion with patient today regarding pain control. She has been on high-dose oral narcotics for an extended period time for other medical issues. I explained her left ankle control will be little more difficult. We will continue to utilize allotted as needed. I did discuss with her that we need to avoid excess use of medication to the hospital. We have resumed her MS Contin and oxycodone GI and DVT prophylaxis, continue aspirin 325 mg daily Wound care, we'll change dressing on 09/02/2021 Utilize arm sling, basic and wrist exercises. Ice the shoulder Other medical specialists recommendations Discharge planning: Patient did mention the possibility of rehab, I explained to her that we could look into this as a possibility. I would like the patient to consider going home. We will hospital at least 1 additional night to help with pain control. We'll reassess on 09/02/2021 Time with Patient: Less than 30
[2021-09-01] MEDS ORDERED: FLUTICASONE 50MCG/SPRAY NASAL 16GM EA NOSTRIL PRN (10:16)
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
[2021-09-01] MEDS: ASPIRIN 325 MG TAB PO SCH (10:25)
[2021-09-01 10:27] LABS: Basophils % (A) 0 %; Eosinophils % (A) 1 %; HCT 30.2 % (34.0-46.0); HGB 9.9 gm/dL (11.4-16.0); Lymphocytes # (A) 1.8 k/uL (1.0-4.8); Lymphocytes % (A) 33 %; MCH 28.2 pg (25.0-35.0); MCHC 32.6 g/dL (31.0-37.0); MCV 86.4 fL (80.0-100.0); Mean Platelet Volume 7.6; Monocytes # (A) 0.4 k/uL (0-1.0); Monocytes % (A) 7 %; Neutrophils % (A) 57 %; Platelet Count 185 k/uL (150-450); RDW 14.2 % (11.5-15.5); WBC 5.3 k/uL (3.8-10.6)
[2021-09-01] MEDS: PATIENT'S OWN (Linaclotide [Linzess] 290 MCG Capsule) PO SCH (10:34)
[2021-09-01] MEDS: busPIRone HCl 10 MG TAB PO SCH ×2 (10:38→21:57)
[2021-09-01] MEDS: PANTOPRAZOLE 40 MG TABLET PO SCH (10:38)
[2021-09-01] MEDS: SIMETHICONE 80 MG CHEWABLE PO SCH ×3 (14:16→21:59)
[2021-09-01] MEDS: METHADONE 10 MG TAB PO SCH ×2 (16:52→21:57)
[2021-09-01] MEDS: DICYCLOMINE 20 MG TAB PO SCH ×2 (16:52→21:59)
[2021-09-01] MEDS ORDERED: NON FORMULARY DRUG (Vitamin C/Biotin [Hair, Skin And Nails Chew] 1 EACH Tablet) PO SCH (21:00)
[2021-09-01] MEDS: QUEtiapine 25 MG TAB PO SCH (21:56)
[2021-09-01] MEDS: MIRTAZAPINE 45 MG TABLET PO SCH (21:59)
[2021-09-01] MEDS: PREGABALIN 25 MG CAP PO SCH (21:59)
[2021-09-01] MEDS: DULoxetine HCL 30 MG CAPSULE.DR PO SCH (21:59)
[2021-09-01] MEDS: LATANOPROST 0.005% OPHTH DROPS 2.5 ML BTL BOTH EYES SCH (22:02)
[2021-09-01] MEDS: DORZOLAMIDE-TIMOLOL 2.23%/0.68 10ML BTL BOTH EYES SCH (22:02)
[2021-09-02] MEDS: HYDROmorphone 1 MG/ML 1 ML SYRINGE IVP PRN ×3 (01:41→07:57)
[2021-09-02] MEDS: LACTATED RINGERS 1,000 ML IV SCH (07:17)
[2021-09-02] MEDS: busPIRone HCl 10 MG TAB PO SCH ×3 (11:00→21:09)
[2021-09-02] MEDS: PANTOPRAZOLE 40 MG TABLET PO SCH (11:01)
[2021-09-02] MEDS: oxyCODONE-APAP 10-325MG 1 EACH TAB PO PRN (11:01)
[2021-09-02] MEDS: METHADONE 10 MG TAB PO SCH ×3 (11:02→22:41)
[2021-09-02] MEDS: PREGABALIN 25 MG CAP PO SCH ×2 (11:02→21:09)
[2021-09-02] MEDS: ASPIRIN 325 MG TAB PO SCH (11:03)
[2021-09-02] MEDS: DICYCLOMINE 20 MG TAB PO SCH ×2 (11:03→17:07)
[2021-09-02] MEDS: SIMETHICONE 80 MG CHEWABLE PO SCH ×4 (11:03→21:09)
[2021-09-02] MEDS: QUEtiapine 25 MG TAB PO SCH ×2 (11:03→21:09)
[2021-09-02] MEDS: PATIENT'S OWN (Linaclotide [Linzess] 290 MCG Capsule) PO SCH (11:04)
[2021-09-02] MEDS: DORZOLAMIDE-TIMOLOL 2.23%/0.68 10ML BTL BOTH EYES SCH (11:06)
--- NOTE | 2021-09-02 11:18 | P.PN ---
Subjective Progress Note Date: 09/02/21 Principal diagnosis: Status post left reverse total shoulder arthroplasty Patient is evaluated at bedside, her is present with her at bedside. Patient is feeling better than yesterday but still requiring IV pain medication. Currently he denies any headaches, lightheadedness, chest pain or shortness of breath. She denies any fever or chills, nausea or vomiting. Objective - Vital Signs Vital signs: Vital Signs Temp 98.9 F 09/02/21 04:35 Pulse 92 09/02/21 04:35 Resp 20 09/02/21 04:35 BP 155/66 09/02/21 04:35 Pulse Ox 92 L 09/02/21 04:35 Intake & Output 09/01/21 09/02/21 09/02/21 18:59 06:59 18:59 Intake Total 160 160 Balance 160 160 Intake: Intake, IV Titration 160 160 Amount Lactated Ringers 1,000 ml 160 @ 0 mls/hr IV .[facility] Rx#:[id number] Lactated Ringers 1,000 ml 160 @ 20 mls/hr IV .Q24H [facility] Rx#:[id number] Other: Voiding Method Bedpan Bedpan Bedpan # Voids 3 - Exam Left upper extremity: Postoperative bandage was removed today at bedside, a new dressing was applied. Incision is clean, dry and intact. There is mild soft tissue swelling present in the upper arm. Sensation to light touch is intact of the upper extremity. Her motion is intact with regards to flexion and extension at the elbow, hand and wrist. Shoulder range of motion was not assessed. Radial / ulnar pulses are 2+ - Labs CBC & Chem 7: 09/01/21 09:34 Assessment and Plan Assessment: Postoperative day #2 status post left reverse total shoulder arthroplasty Plan: Pain control, I again had a very long discussion with the patient and her at bedside regarding pain control. She is still requesting IV pain medications. I am going to decrease the amount of this at this time, she will continue on her artery prescribed oral narcotics. I made it very clear to her that she's try her very best to not utilize the IV pain medication, this will help with discharge. GI and DVT prophylaxis, continue aspirin 325 mg daily Utilize arm sling, basic and wrist exercises. Ice the shoulder Other medical specialists recommendations Discharge planning: Planning for discharge home on 09/03/2021 Time with Patient: Less than 30
[2021-09-02 12:00] LABS: Glucose,Whole Blood 133 mg/dL (75-99)
--- NOTE | 2021-09-02 12:28 | XR ---
EXAMINATION TYPE: XR chest 1V DATE OF EXAM: 09/02/2021 CLINICAL HISTORY: Hypoxia. TECHNIQUE: Single AP portable upright view of the chest is obtained. COMPARISON: Chest x-ray from August 13, 2021 FINDINGS: New metallic hardware from interval left shoulder surgery is partially imaged. [place] osse ous structures are demineralized. Diminished inspiration with elevated left hemidiaphragm [place]stra [place]. Cardiac silhouette size is more prominent now mildly enlarged with ectatic thoracic aorta. Chron ic parenchymal changes with increased interstitial markings bilaterally greater in the lower lungs. N o pleural effusion or pneumothorax seen. Surgical change in the lower lumbar spine is partially image d. IMPRESSION: Diminished inspiration with new mild cardiomegaly and mild interstitial edema, cannot exc lude CHF exacerbation or fluid overload state.
[2021-09-02] MEDS ORDERED: FUROSEMIDE 10 MG/ML 4 ML VIAL IV STA (12:35)
[2021-09-02 12:45] LABS: African American GFR (CKD) 76 (>60 ml/min/1.73 sqM); Anion Gap 5 mmol/L; Blood Urea Nitrogen 14 mg/dL (7-17); Carbon Dioxide 29 mmol/L (22-30); Chloride 101 mmol/L (98-107); Glucose 121 mg/dL (74-99); Non-African American GFR(CKD) 66 (>60 ml/min/1.73 sqM); Potassium 3.6 mmol/L (3.5-5.1); Sodium 135 mmol/L (137-145)
[2021-09-02 12:55] LABS: Basophils % (A) 0 %; Eosinophils # (A) 0.1 k/uL (0-0.7); Eosinophils % (A) 1 %; HGB 9.7 gm/dL (11.4-16.0); Lymphocytes # (A) 1.4 k/uL (1.0-4.8); Lymphocytes % (A) 24 %; MCH 26.8 pg (25.0-35.0); MCHC 31.3 g/dL (31.0-37.0); MCV 85.7 fL (80.0-100.0); Mean Platelet Volume 7.4; Monocytes # (A) 0.6 k/uL (0-1.0); Monocytes % (A) 10 %; Neutrophils # (A) 3.8 k/uL (1.3-7.7); Neutrophils % (A) 63 %; Platelet Count 198 k/uL (150-450); RBC 3.61 m/uL (3.80-5.40); RDW 14.2 % (11.5-15.5)
[2021-09-02] MEDS: HYDROmorphone 0.5 MG/0.5 ML SYRINGE IVP PRN ×2 (21:08→22:42)
[2021-09-02] MEDS: DULoxetine HCL 30 MG CAPSULE.DR PO SCH (21:08)
[2021-09-02] MEDS: MIRTAZAPINE 45 MG TABLET PO SCH (21:09)
[2021-09-03] MEDS: DORZOLAMIDE-TIMOLOL 2.23%/0.68 10ML BTL BOTH EYES SCH ×2 (01:01→08:08)
[2021-09-03] MEDS: LATANOPROST 0.005% OPHTH DROPS 2.5 ML BTL BOTH EYES SCH (01:02)
[2021-09-03] MEDS: DICYCLOMINE 20 MG TAB PO SCH ×2 (01:02→08:03)
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
[2021-09-03] MEDS: HYDROmorphone 0.5 MG/0.5 ML SYRINGE IVP PRN ×3 (02:49→12:27)
[2021-09-03] MEDS: LACTATED RINGERS 1,000 ML IV SCH (07:58)
[2021-09-03] MEDS: busPIRone HCl 10 MG TAB PO SCH (08:03)
[2021-09-03] MEDS: PANTOPRAZOLE 40 MG TABLET PO SCH (08:03)
[2021-09-03] MEDS: QUEtiapine 25 MG TAB PO SCH (08:03)
[2021-09-03] MEDS: METHADONE 10 MG TAB PO SCH (08:03)
[2021-09-03] MEDS: PREGABALIN 25 MG CAP PO SCH (08:03)
[2021-09-03] MEDS: PATIENT'S OWN (Linaclotide [Linzess] 290 MCG Capsule) PO SCH (08:06)
[2021-09-03] MEDS: SIMETHICONE 80 MG CHEWABLE PO SCH ×2 (08:08→14:08)
[2021-09-03] MEDS: ASPIRIN 325 MG TAB PO SCH (08:08)
[2021-09-03 08:45] VITALS: BP 110/68; PULSE 116; RESP 19; TEMP 98.7
--- NOTE | 2021-09-03 12:48 | P.DS ---
Providers Date of admission: 09/03/21 08:34 Expected date of discharge: 09/03/21 Attending physician: Anshul Manzanares Consults: 08/31/21 12:50 Consult Physician Routine Consulting Provider: Hill Mata Consult Reason/Comments: medical management Do you want consulting provider notified?: Yes Primary care physician: Hill Mata Hospital Course: Date of admission: 08/31/2021 Date of discharge: 09/02/2021 Admission diagnosis: Left rotator cuff arthropathy/chronic large rotator cuff tear Discharge diagnosis: Same Attending physician: Dr. Manzanares Surgical procedures: Left reverse total shoulder arthroplasty Brief history: Patient is a 81-year-old female with a history of left rotator cuff arthropathy/chronic large rotator cuff tear. At this point patient has failed conservative treatment measures and has opted to proceed with a elective left reverse total shoulder arthroplasty. Hospital course: Details of patient's surgery can be found in operative report. Patient tolerated the procedure well and was subsequently transported to orthopedic floor. Patient's orthopeidc and medical care was provided daily. Patient had daily laboratory tests performed for evaluation of overall blood counts. Patient had daily physical therapy to include strengthening range of motion as well as education with walker ambulation. Patient was treated with aspirin for their postoperative DVT prophylaxis during their inpatient stay. Patient was noted to have a relatively uneventful postoperative course. Patient reported satisfactory pain control with oral pain medications by postoperative day 3. Patient showed satisfactory progress with physical therapy. Patient moved steadily through the program and had no difficulty meeting the goals by postoperative day 3. Given patient's otherwise satisfactory course and having met physical therapy goals, plan is to discharge patient home on postoperative day 3. Discharge condition/disposition: Patient will be discharged home in stable condition. Discharge medications: Instructions are given on resumption of patient's normal daily medications per primary care recommendation, in addition patient will be prescribed aspirin 325 mg daily 2 weeks; Colace. Discharge instructions: 1. Wound care and infection precautions, keep incision dry and covered while showering, no lotions, creams, moisturizers. No soaking, tubs, pools, hottubs. Do not scrub over the incision. 2. Nonweightbearing left arm. Keep in sling at all times. 3. Ice when necessary. Do not exceed 20 minutes per hour with ice pack. 4. Keep incision clean, dry, intact. 5. Visiting nursing care. 6. Home physical therapy 7. Pain meds and anticoagulants per prescription. 8. Pain medication has potential to cause constipation. Increase oral fluid and fiber intake. Contact primary care provider if you have not had a bowel movement within 48 hours after discharge 9. No anti-inflammatory medication until discussed at first post operative visit, this including Motrin, Aleve, Mobic, Diclofenac.. 10. Follow up in office at 2 weeks postop with Ross Vela PA-C / Kamlesh Duque PA-C 11. Follow up with your primary care doctor 7-10 days after discharge. 12. Contact [facility] with any questions, . Medications: Aspiring 325 mg daily x 2 weeks; Colace 100 mg Keep incision clean, dry, intact. While showering, cover incision with Saran wrap/plastic bag Assessment: Left rotator cuff arthropathy/chronic large rotator cuff tear Procedures: Left reverse total shoulder arthroplasty Patient Condition at Discharge: Good Plan - Discharge Summary Discharge Rx Participant: No New Discharge Prescriptions: No Action Dorzolamide HCl/Timolol Maleat [[place] Eye Drops] 1 drop BOTH EYES BID Pregabalin [Lyrica] 25 mg PO BID Latanoprost/Pf [Latanoprost 0.005% Eye Drop] 1 drop BOTH EYES HS Dicyclomine [Bentyl] 20 mg PO TID oxyCODONE-APAP 10-325MG [Percocet 10-325 mg] 1 tab PO TID PRN PRN Reason: Pain Pantoprazole [Protonix] 40 mg PO DAILY tiZANidine [Zanaflex] 4 mg PO HS Morphine Sulfate [Ms Contin] 30 mg PO TID Docusate [Colace] 100 mg PO DAILY busPIRone HCl [Buspar] 30 mg PO BID 30 Days #60 tab Melatonin 20 mg PO HS Vitamin C/Biotin [Hair, Skin and Nails Chew] 2 tab PO HS Fluticasone Nasal [place] [Flonase Nasal [place]] 2 spr EA NOSTRIL BID PRN PRN Reason: Nasal Congestion Linaclotide [Linzess] 290 mcg PO DAILY #30 cap Simethicone Chew [Mylicon Chew] 80 mg PO QID Acetaminophen [Tylenol Extra Strength] 1,000 mg PO Q6H PRN PRN Reason: Headache DULoxetine HCL [Cymbalta] 90 mg PO HS 30 Days #90 cap Methadone [Dolophine] 10 mg PO TID Mirtazapine 45 mg PO HS QUEtiapine [SEROquel] 25 mg PO BID Discharge Medication List Dorzolamide HCl/Timolol Maleat [Cos[place] Eye Drops] 1 drop BOTH EYES BID 03/02/16 [History] Pregabalin [Lyrica] 25 mg PO BID 06/07/18 [History] Latanoprost/Pf [Latanoprost 0.005% Eye Drop] 1 drop BOTH EYES HS 08/28/19 [History] Dicyclomine [Bentyl] 20 mg PO TID 12/09/19 [History] oxyCODONE-APAP 10-325MG [Percocet 10-325 mg] 1 tab PO TID PRN 03/02/20 [History] Pantoprazole [Protonix] 40 mg PO DAILY 04/30/20 [History] Fluticasone Nasal [place] [Flonase Nasal [place]] 2 spr EA NOSTRIL BID PRN 02/13/21 [History] tiZANidine [Zanaflex] 4 mg PO HS 02/13/21 [History] Morphine Sulfate [Ms Contin] 30 mg PO TID 06/08/21 [History] Linaclotide [Linzess] 290 mcg PO DAILY #30 cap 06/09/21 [Rx] Acetaminophen [Tylenol Extra Strength] 1,000 mg PO Q6H PRN 07/08/21 [History] Docusate [Colace] 100 mg PO DAILY 07/08/21 [History] Simethicone Chew [Mylicon Chew] 80 mg PO QID 07/08/21 [History] DULoxetine HCL [Cymbalta] 90 mg PO HS 30 Days #90 cap 07/15/21 [Rx] busPIRone HCl [Buspar] 30 mg PO BID 30 Days #60 tab 07/15/21 [Rx] Melatonin 20 mg PO HS 08/25/21 [History] Methadone [Dolophine] 10 mg PO TID 08/25/21 [History] Mirtazapine 45 mg PO HS 08/25/21 [History] QUEtiapine [SEROquel] 25 mg PO BID 08/25/21 [History] Vitamin C/Biotin [Hair, Skin and Nails Chew] 2 tab PO HS 08/25/21 [History] Follow up Appointment(s)/Referral(s): [facility] Visiting Nurse, [NON-STAFF] - 1 Week Kamlesh Duque PAC [PHYSICIAN BATTING MACHINE OPERATOR] - 2 Weeks Patient Instructions/Handouts: Shoulder Arthroplasty (GEN) Activity/Diet/Wound Care/Special Instructions: Discharge instructions: 1. Wound care and infection precautions, keep incision dry and covered while showering, no lotions, creams, moisturizers. No soaking, tubs, pools, hottubs. Do not scrub over the incision. 2. Nonweightbearing left arm. Keep in sling at all times. 3. Ice when necessary. Do not exceed 20 minutes per hour with ice pack. 4. Keep incision clean, dry, intact. 5. Visiting nursing care. 6. Home physical therapy 7. Pain meds and anticoagulants per prescription. 8. Pain medication has potential to cause constipation. Increase oral fluid and fiber intake. Contact primary care provider if you have not had a bowel movement within 48 hours after discharge 9. No anti-inflammatory medication until discussed at first post operative visit, this including Motrin, Aleve, Mobic, Diclofenac.. 10. Follow up in office at 2 weeks postop with Ross Vela PA-C / Kamlesh Duque PA-C 11. Follow up with your primary care doctor 7-10 days after discharge. 12. Contact [facility] with any questions, . Medications: Aspiring 325 mg daily x 2 weeks; Colace 100 mg Keep incision clean, dry, intact. While showering, cover incision with Saran wrap/plastic bag Discharge Disposition: HOME WITH HOME HEALTH SERVICES
--- NOTE | 2021-09-03 18:21 | P.PN ---
Subjective Progress Note Date: 09/03/21 Principal diagnosis: Left rotator cuff arthropathy/chronic large rotator cuff tear Patient was seen at bedside this morning with at bedside. Patient says she is feeling better over the past couple days. She says she still having some shoulder pain, but she says she's been keeping in her sling throughout the day and night. Patient feels that she is radial home. Patient denies numbness/tingling down the left arm. Patient denies chest pain, fever, shortness of breath, nausea, country vision, loss of bowel/bladder control. Objective - Vital Signs Vital signs: Vital Signs Temp 98.7 F 09/03/21 07:00 Pulse 116 H 09/03/21 07:00 Resp 19 09/03/21 07:00 BP 110/68 09/03/21 07:00 Pulse Ox 98 09/03/21 07:00 Intake & Output 09/02/21 09/03/21 09/03/21 18:59 06:59 18:59 Intake Total 240 1000 Balance 240 1000 Intake: Oral 240 1000 Other: Voiding Method Bedpan Toilet Toilet # Voids 2 3 - Exam Focused left shoulder 4 x 4's are present with paper tape over incision with continuous stitch. Incision is clean, dry, intact. Negative for any years of fluctuance/purulence. No drainage. Negative for any ecchymosis/erythema. Incision is moderately tender to palpation. Sensation is equal, symmetric, bilaterally intact throughout bilateral upper extremities Range of motion is limited due to recent surgery. Motor exam of left shoulders unable to perform due to recent surgery. Radial pulses are intact, 2+ bilaterally. Cap refill is under 3 seconds bilaterally in digits of upper extremities. - Labs CBC & Chem 7: 09/02/21 12:09 09/02/21 12:09 Labs: Abnormal Lab Results - Last 24 Hours (Table) 09/02/21 Range/Units 12: RBC 3.61 L (3.80-5.40) m/uL Hgb 9.7 L (11.4-16.0) gm/dL Hct 31.0 L (34.0-46.0) % Assessment and Plan Assessment: 1. Left rotator cuff arthropathy/chronic large rotator cuff tear - Postoperative day #3 status post Left reverse total shoulder arthroplasty Plan: 1. Left rotator cuff arthropathy/chronic large rotator cuff tear Lsurgery performed 08/31/2021 - left reverse total shoulder arthroplasty. Patient stable at bedside this morning. Plan discharge home with health services. 2. Appreciate medical management 3. Pain management oxycodone; Lyrica 4. DVT prophylaxis - aspirin 325 mg. Patient to jose aspirin 325 mg daily x 2 weeks once home 5. GI prophylaxis - Colace 6. PT/OT - nonweightbearing left arm. Keep left arm in sling at all times 7. Discharge planning - discharge home today with health services. Time with Patient: Less than 30
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
== END 2021-09-03 14:37 | disposition home health service (06) | DRG 483 ==
LOC: OR 08:13 → 5NMEDONC 16:15 → OR 09-01 15:04 → 5NMEDONC 09-01 15:04 → OBSVTOIN 09-03 08:34
PROVIDERS: ADMIT Orthopaedic Surgery; ATTEND Orthopaedic Surgery
PROC: 3E0T3BZ Introduction of Anesthetic Agent into Peripheral Nerves and Plexi, Percutaneous Approach (ICD-10-PCS; 2021-08-31)
PROC: 0RRK00Z Replacement of Left Shoulder Joint with Reverse Ball and Socket Synthetic Substitute, Open Approach (ICD-10-PCS; principal; 2021-08-31 10:10)
DX: M19.012 Primary osteoarthritis, left shoulder (principal); D62 Acute posthemorrhagic anemia; J81.1 Chronic pulmonary edema; M75.102 Unspecified rotator cuff tear or rupture of left shoulder, not specified as traumatic; Z20.822 Contact with and (suspected) exposure to COVID-19; E78.5 Hyperlipidemia, unspecified; F31.9 Bipolar disorder, unspecified; F41.9 Anxiety disorder, unspecified; G40.909 Epilepsy, unspecified, not intractable, without status epilepticus; H40.9 Unspecified glaucoma; M19.90 Unspecified osteoarthritis, unspecified site; G47.33 Obstructive sleep apnea (adult) (pediatric); I51.7 Cardiomegaly; G89.4 Chronic pain syndrome; K21.9 Gastro-esophageal reflux disease without esophagitis; M79.7 Fibromyalgia; Z79.899 Other long term (current) drug therapy; Z86.73 Personal history of transient ischemic attack (TIA), and cerebral infarction without residual deficits; Z87.891 Personal history of nicotine dependence; Z90.710 Acquired absence of both cervix and uterus; Z96.653 Presence of artificial knee joint, bilateral; Z88.7 Allergy status to serum and vaccine; Z88.5 Allergy status to narcotic agent; Z98.42 Cataract extraction status, left eye; Z98.41 Cataract extraction status, right eye; Z98.1 Arthrodesis status; Z87.19 Personal history of other diseases of the digestive system
CPT/HCPCS: 64415; 71045; 76942; 80048; 85025; 87635; 88300

== ENCOUNTER 2021-10-08 10:47 | Emergency (ER) | payer MEDICARE, OTHER ==
[2021-10-08 11:12] VITALS: BP 107/77; PULSE 116; RESP 22; TEMP 97.7
[2021-10-08] MEDS ORDERED: HYDROmorphone 1 MG/ML 1 ML SYRINGE IM STA (11:32)
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
--- NOTE | 2021-10-08 12:05 | XR ---
EXAMINATION TYPE: XR shoulder complete LT DATE OF EXAM: 10/08/2021 Comparison: 08/31/2021, 09/17/2021 Clinical History: 81-year-old female pain Findings: Post surgical change of reverse left shoulder arthroplasty. Alignment appears appropriate. No peripro sthetic fracture or loosening is identified. Moderate degenerative in the underlying colon. If concer n for hemidiaphragmatic paralysis, sniff test. Similar elevated left hemidiaphragm possibly from prom inent underlying air in the splenic flexure of the colon. Healed fracture deformity of the left anter ior fourth rib. Impression: 1. No specific complication identified of the patient's reverse left shoulder arthroplasty. Alignment appears appropriate. 2. Asymmetric elevation left hemidiaphragm. If concern for hemidiaphragmatic paralysis, a fluoroscopi c sniff test could be performed.
== END 2021-10-08 12:33 | disposition home or self-care (01) ==
LOC: EC 10:47
DX: M25.512 Pain in left shoulder (principal); M79.7 Fibromyalgia; K21.9 Gastro-esophageal reflux disease without esophagitis; E78.5 Hyperlipidemia, unspecified; M19.90 Unspecified osteoarthritis, unspecified site; I10 Essential (primary) hypertension; F41.9 Anxiety disorder, unspecified; F31.9 Bipolar disorder, unspecified; Z79.82 Long term (current) use of aspirin; Z88.1 Allergy status to other antibiotic agents; Z86.73 Personal history of transient ischemic attack (TIA), and cerebral infarction without residual deficits; Z90.710 Acquired absence of both cervix and uterus; Z96.653 Presence of artificial knee joint, bilateral; Z87.891 Personal history of nicotine dependence
CPT/HCPCS: 99283; 96372; 73030; J1170

== ENCOUNTER 2021-10-30 17:53 | Emergency (ER) | payer MEDICARE, OTHER ==
[2021-10-30 18:30] VITALS: RESP 18; TEMP 98
[2021-10-30] MEDS ORDERED: HYDROmorphone 0.5 MG/0.5 ML SYRINGE IVP STA (18:52)
[2021-10-30] MEDS ORDERED: ONDANSETRON 4 MG/2 ML VIAL IVP STA (18:52)
[2021-10-30] MEDS ORDERED: SODIUM CHLORIDE 0.9% 500 ML 500 ML IV STA (18:55)
[2021-10-30 19:19] LABS: Basophils % (A) 0 %; Eosinophils # (A) 0.1 k/uL (0-0.7); Eosinophils % (A) 1 %; HCT 38.1 % (34.0-46.0); HGB 11.9 gm/dL (11.4-16.0); Hypochromasia Moderate; Lymphocytes # (A) 1.8 k/uL (1.0-4.8); Lymphocytes % (A) 26 %; MCH 26.9 pg (25.0-35.0); MCHC 31.1 g/dL (31.0-37.0); MCV 86.5 fL (80.0-100.0); Mean Platelet Volume 7.7; Monocytes # (A) 0.3 k/uL (0-1.0); Monocytes % (A) 5 %; Neutrophils # (A) 4.6 k/uL (1.3-7.7); Neutrophils % (A) 65 %; Platelet Count 220 k/uL (150-450); RBC 4.41 m/uL (3.80-5.40); RDW 14.6 % (11.5-15.5)
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
[2021-10-30 19:28] LABS: ALT 14 U/L (4-34); AST 25 U/L (14-36); African American GFR (CKD) >90 (>60 ml/min/1.73 sqM); Albumin 4.3 g/dL (3.5-5.0); Alkaline Phosphatase 98 U/L (38-126); Anion Gap 8 mmol/L; Blood Urea Nitrogen 19 mg/dL (7-17); Calcium 9.5 mg/dL (8.4-10.2); Carbon Dioxide 23 mmol/L (22-30); Chloride 104 mmol/L (98-107); Glucose 102 mg/dL (74-99); Lipase 23 U/L (23-300); Non-African American GFR(CKD) 83 (>60 ml/min/1.73 sqM); Potassium 4.3 mmol/L (3.5-5.1); Sodium 135 mmol/L (137-145); Total Bilirubin 0.6 mg/dL (0.2-1.3); Total Protein 8.1 g/dL (6.3-8.2)
[2021-10-30 19:48] LABS: INR 0.9 (<1.2)
[2021-10-30] MEDS ORDERED: HYDROmorphone 1 MG/ML 1 ML SYRINGE IVP STA (20:36)
--- NOTE | 2021-10-30 20:50 | CT ---
EXAMINATION TYPE: CT abdomen pelvis w con DATE OF EXAM: 10/30/2021 COMPARISON: 07/11/2021 HISTORY: Abdominal pain CT DLP: 1226.9 mGycm Automated exposure control for dose reduction was used. CONTRAST: Performed with IV Contrast, patient injected with 100 mL of Isovue 300. Images obtained from the diaphragm to the floor of the pelvis with IV contrast. There is mild subsegmental atelectasis at the lung bases. Heart size is normal. There is no pericardi al effusion. There is no pleural effusion. There are a few cysts in the liver measuring up to 1 cm. T he bile ducts are not dilated. Gallbladder appears normal. Spleen is intact. Stomach is intact. There is no evidence of pancreatic mass. There is no adrenal mass. Kidneys show satisfactory contrast opacification. There is no hydronephrosi s. Ureters are not dilated. There is no retroperitoneal adenopathy. The bladder distends smoothly. Th ere is no evidence of a pelvic mass. There is surgery at the rectosigmoid junction. There is no mesenteric edema. There is no ascites or free air. There is no sign of a bowel obstructio n. Appendix not clearly seen. No sign of thickened appendix. There is multilevel posterior fusion wilbert kori in the lumbar spine and upper sacrum. There is metal artifact. The vertebra have Normal alignment. There is no significant compression deformity. There is disc pros thesis at L4-5 and L3-4. There is laminectomy defects. The bony pelvis appears intact. The hip joints are intact. IMPRESSION: No acute abnormality of the abdomen and pelvis.
--- NOTE | 2021-10-30 20:57 | XR ---
EXAMINATION TYPE: XR shoulder complete LT DATE OF EXAM: 10/30/2021 COMPARISON: 10/08/2021 HISTORY: Pain TECHNIQUE: 3 views FINDINGS: There is a left shoulder prosthesis. Components are in anatomic position. I see no fracture. IMPRESSION: No fracture seen. No change.
[2021-10-30 21:19] VITALS: BP 129/70; PULSE 86
[2021-10-30 21:36] LABS: Appearance,Urine Clear (Clear); Bilirubin,Urine Negative (Negative); Blood,Urine Negative (Negative); Color,Urine Light Yellow; Glucose,Urine (UA) Negative (Negative); Ketones,Urine Negative (Negative); Leukocyte Esterase,Urine Negative (Negative); Nitrite,Urine Negative (Negative); Protein,Urine Negative (Negative); Specific Gravity,Urine 1.035 (1.001-1.035); Urobilinogen,Urine <2.0 mg/dL (<2.0)
== END 2021-10-30 22:10 | disposition home or self-care (01) ==
LOC: EC 17:53
DX: M25.512 Pain in left shoulder (principal); R11.2 Nausea with vomiting, unspecified; M79.7 Fibromyalgia; K21.9 Gastro-esophageal reflux disease without esophagitis; E78.5 Hyperlipidemia, unspecified; M19.90 Unspecified osteoarthritis, unspecified site; F41.9 Anxiety disorder, unspecified; F31.9 Bipolar disorder, unspecified; Z79.82 Long term (current) use of aspirin; Z88.1 Allergy status to other antibiotic agents; Z86.73 Personal history of transient ischemic attack (TIA), and cerebral infarction without residual deficits; Z90.710 Acquired absence of both cervix and uterus; Z96.653 Presence of artificial knee joint, bilateral; Z87.891 Personal history of nicotine dependence
CPT/HCPCS: 99284; 96374; 96375; 96376; 36415; 80053; 83605; 83690; 85025; 85610; 85730; 81003; 73030; 74177; J2405; J1170 ×2; Q9967

== ENCOUNTER 2021-11-02 14:59 | Observation (INO) | payer MEDICARE, OTHER ==
[2021-11-02] MEDS ORDERED: DICYCLOMINE 10 MG/ML 2 ML AMP IM STA (15:18)
[2021-11-02] MEDS ORDERED: ONDANSETRON 4 MG/2 ML VIAL IVP STA (15:18)
[2021-11-02] MEDS ORDERED: SODIUM CHLORIDE 0.9% 1,000 ML IV STA (15:18)
[2021-11-02] MEDS ORDERED: FAMOTIDINE 20 MG/2 ML VIAL IV STA (15:19)
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
[2021-11-02 16:28] LABS: Basophils % (A) 0 %; Eosinophils # (A) 0.1 k/uL (0-0.7); Eosinophils % (A) 1 %; HCT 39.7 % (34.0-46.0); HGB 12.7 gm/dL (11.4-16.0); Lymphocytes # (A) 1.4 k/uL (1.0-4.8); Lymphocytes % (A) 17 %; MCH 27.1 pg (25.0-35.0); MCHC 31.9 g/dL (31.0-37.0); MCV 85.1 fL (80.0-100.0); Mean Platelet Volume 10.3; Monocytes # (A) 0.6 k/uL (0-1.0); Monocytes % (A) 7 %; Neutrophils # (A) 6.2 k/uL (1.3-7.7); Neutrophils % (A) 73 %; Platelet Count 177 k/uL (150-450); RBC 4.66 m/uL (3.80-5.40); RDW 14.3 % (11.5-15.5); WBC 8.5 k/uL (3.8-10.6)
[2021-11-02 16:37] LABS: ALT 12 U/L (4-34); AST 22 U/L (14-36); African American GFR (CKD) >90 (>60 ml/min/1.73 sqM); Albumin 4.5 g/dL (3.5-5.0); Alkaline Phosphatase 110 U/L (38-126); Amylase 65 U/L (30-110); Anion Gap 11 mmol/L; Blood Urea Nitrogen 14 mg/dL (7-17); Calcium 9.8 mg/dL (8.4-10.2); Carbon Dioxide 22 mmol/L (22-30); Chloride 105 mmol/L (98-107); Glucose 99 mg/dL (74-99); Lipase 24 U/L (23-300); Non-African American GFR(CKD) 82 (>60 ml/min/1.73 sqM); Potassium 4.2 mmol/L (3.5-5.1); Sodium 138 mmol/L (137-145); Total Bilirubin 0.6 mg/dL (0.2-1.3); Total Protein 8.3 g/dL (6.3-8.2)
[2021-11-02] MEDS ORDERED: MORPHINE SULFATE 4 MG/ML SYRINGE IVP STA (17:02)
--- NOTE | 2021-11-02 17:02 | XR ---
EXAMINATION TYPE: XR KUB DATE OF EXAM: 11/02/2021 COMPARISON: NONE HISTORY: Abdominal pain TECHNIQUE: 2 view FINDINGS: There is no sign of intestinal obstruction or pneumoperitoneum. Fecal pattern is normal. Th ere is posterior fusion surgery in the mid and lower lumbar spine. Lung bases are clear. There are no pathologic calcifications. IMPRESSION: Nonacute abdomen.
--- NOTE | 2021-11-02 18:10 | CT ---
EXAMINATION TYPE: CT abdomen pelvis w con DATE OF EXAM: 11/02/2021 COMPARISON: 10/30/2021 HISTORY: Left sided abdominal pain with n/v/d. CT DLP: 632.1 mGycm Automated exposure control for dose reduction was used. CONTRAST: Performed with IV Contrast, patient injected with 30 mL of Isovue 300. Images obtained from the diaphragm to the floor the pelvis with IV contrast. Lung bases are clear of consolidation. Heart size is normal. There is no pericardial effusion. There are multiple small cysts in the liver. Spleen is intact. There is no pancreatic mass. The stomach is intact. Gallbladder appears normal. The bile ducts are not dilated. There is no adrenal mass. There is contrast in both renal collecting systems. There is no hydronephro sis. There are left-sided renal parapelvic cysts. Ureters are not dilated. Exam limited by metal krupa fact from the multilevel lumbar spine fusion surgery. Bladder distends smoothly. There is no inguinal hernia. There is 3.5 cm cyst on the right ovary. There is no pelvic mass. There is no mesenteric edema. There is no ascites or free air. There is no bowel obstruction. Appendi x not seen. No sign of thickened appendix. There are a few pericecal lymph nodes up to 1 cm. There is previous surgery at the sigmoid colon. The lumbar spine shows multilevel posterior fusion surgery. There is metal artifact. There is no sign ificant compression deformity. There is L1-2 moderate spondylosis. The bony pelvis is intact. IMPRESSION: No acute abnormality in the abdomen pelvis. Right ovarian cyst without change. Previous surgery. No a dverse change compared to recent exam.
[2021-11-02 18:29] LABS: Appearance,Urine Clear (Clear); Bilirubin,Urine Negative (Negative); Blood,Urine Negative (Negative); Color,Urine Light Yellow; Glucose,Urine (UA) Negative (Negative); Ketones,Urine 1+ (Negative); Leukocyte Esterase,Urine Negative (Negative); Nitrite,Urine Negative (Negative); Protein,Urine Negative (Negative); Specific Gravity,Urine 1.013 (1.001-1.035); Urobilinogen,Urine <2.0 mg/dL (<2.0)
[2021-11-02] MEDS ORDERED: NALOXONE 0.4 MG/ML 1 ML VIAL IV PRN (19:32)
[2021-11-02] MEDS ORDERED: ONDANSETRON 4 MG/2 ML VIAL IVP PRN (19:32)
[2021-11-02] MEDS: SODIUM CHLORIDE 0.9% 1,000 ML IV SCH (20:05)
[2021-11-02] MEDS: MORPHINE SULFATE 4 MG/ML SYRINGE IV PRN (20:06)
[2021-11-02 22:07] VITALS: RESP 16
[2021-11-03] MEDS: MORPHINE SULFATE 4 MG/ML SYRINGE IV PRN ×4 (00:13→12:45)
[2021-11-03] MEDS: SODIUM CHLORIDE 0.9% 1,000 ML IV SCH ×2 (03:46→07:38)
[2021-11-03 06:21] LABS: Basophils % (A) 0 %; Eosinophils # (A) 0.1 k/uL (0-0.7); Eosinophils % (A) 2 %; HGB 11.1 gm/dL (11.4-16.0); Hypochromasia Slight; Lymphocytes # (A) 1.7 k/uL (1.0-4.8); Lymphocytes % (A) 28 %; MCH 27.1 pg (25.0-35.0); MCHC 30.7 g/dL (31.0-37.0); MCV 88.2 fL (80.0-100.0); Mean Platelet Volume 7.9; Monocytes # (A) 0.4 k/uL (0-1.0); Monocytes % (A) 6 %; Neutrophils # (A) 3.7 k/uL (1.3-7.7); Neutrophils % (A) 61 %; Platelet Count 202 k/uL (150-450); RBC 4.08 m/uL (3.80-5.40); RDW 14.4 % (11.5-15.5)
[2021-11-03 06:32] LABS: ALT 12 U/L (4-34); AST 23 U/L (14-36); African American GFR (CKD) >90 (>60 ml/min/1.73 sqM); Albumin 3.9 g/dL (3.5-5.0); Albumin/Globulin Ratio 1.1; Alkaline Phosphatase 90 U/L (38-126); Anion Gap 8 mmol/L; Blood Urea Nitrogen 11 mg/dL (7-17); Carbon Dioxide 22 mmol/L (22-30); Chloride 109 mmol/L (98-107); Globulin 3.5 g/dL; Glucose 107 mg/dL (74-99); Non-African American GFR(CKD) 81 (>60 ml/min/1.73 sqM); Sodium 139 mmol/L (137-145); Total Bilirubin 0.6 mg/dL (0.2-1.3); Total Protein 7.4 g/dL (6.3-8.2)
[2021-11-03] MEDS ORDERED: PANTOPRAZOLE 40 MG/10 ML VIAL IV SCH (09:00)
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
[2021-11-03 14:07] VITALS: BP 146/100; PULSE 114; TEMP 99.3
[2021-11-03] MEDS ORDERED: HEPARIN SODIUM,PORCINE/PF 5,000 UNIT/0.5 ML SYRINGE SQ SCH (21:00)
--- NOTE | 2021-11-04 11:14 | P.DS ---
Providers Date of admission: 11/02/21 19:32 Expected date of discharge: 11/03/21 Attending physician: Hector Hall Consults: 11/02/21 19:33 Consult Physician Routine Consulting Provider: Ambreen Cm Consult Reason/Comments: abp, vomiting Do you want consulting provider notified?: Yes Primary care physician: Hill Mata Hospital Course: Final diagnosis Nausea, vomiting, diarrhea possible gastritis, resolved Abdominal pain, left lower quadrant, improved History of fibromyalgia gastroesophageal reflux disease Hyperlipidemia Chronic pain History of diverticulitis History of ovarian mass DVT prophylaxis GI prophylaxis Discharge disposition Patient is being discharged in a stable condition with guarded prognosis to home. Patient will follow-up with Dr. Mata in the outpatient setting upon discharge. Patient is to follow-up with general surgery as needed in the outpatient setting. Patient is to follow-up with orthopedics outpatient as well due to recent shoulder surgery. Total time taken is greater than 35 minutes. Hospital course This is a 65-year-old male who was recently admitted abdominal pain associated with nausea and vomiting and a few episodes of diarrhea and was being closely monitored. General surgery Dr. Verduzco consulted and evaluated the patient recommending conservative management and CT abdomen was negative for any acute process or obstruction and patient was started on diet and tolerated and is instructed to follow-up with primary care provider in the outpatient setting. Patient no longer reported episodes of nausea or vomiting and last diarrhea episode was yesterday during the ER admission. Patient encouraged to slowly advance diet as tolerated and was given Zofran as needed for nausea. Currently no reports of chest pain, shortness of breath, or palpitations. Patient is afebrile. No reports of nausea or vomiting and patient is tolerating diet. Patient will be discharged home today. Her to prognosis. Physical exam: Gen: This is a 81-year-old female awake, alert and oriented 3, well-developed, well-nourished. HEENT: Head is atraumatic, normocephalic. Pupils equal, round. Sclerae is anicteric. NECK: Supple. No JVD. No lymphadenopathy. No thyromegaly. LUNGS: Clear to auscultation. No wheezes or rhonchi. No intercostal retractions. HEART: Regular rate and rhythm. No murmur. ABDOMEN: Soft. Bowel sounds are present. No masses. Left lower quadrant tenderness on deep palpation. EXTREMITIES: No pedal edema. No calf tenderness. NEUROLOGICAL: Patient is awake, alert and oriented x3. Cranial nerves 2 through 12 are grossly intact. Please refer to medication reconciliation sheet for a list of medications. Patient Condition at Discharge: Stable Plan - Discharge Summary Discharge Rx Participant: No New Discharge Prescriptions: New Ondansetron Odt [Zofran Odt] 4 mg PO Q8HR PRN #20 tab PRN Reason: Nausea Continue Pregabalin [Lyrica] 25 mg PO BID Latanoprost/Pf [Latanoprost 0.005% Eye Drop] 1 drop BOTH EYES HS oxyCODONE-APAP 10-325MG [Percocet 10-325 mg] 1 tab PO TID PRN PRN Reason: Pain Pantoprazole [Protonix] 40 mg PO DAILY tiZANidine [Zanaflex] 4 mg PO HS Melatonin 10 mg PO HS Vitamin C/Biotin [Hair, Skin and Nails Chew] 1 tab PO DAILY Docusate [Colace] 100 mg PO DAILY #30 capsule QUEtiapine [SEROquel] 50 mg PO BID Linaclotide [Linzess] 290 mcg PO HS Aspirin EC [Ecotrin Low Dose] 81 mg PO DAILY Magnesium 500 mg PO HS Meloxicam [Mobic] 7.5 mg PO HS Methadone [Dolophine] 10 mg PO TID Mirtazapine 45 mg PO HS busPIRone HCl [Buspar] 20 mg PO BID DULoxetine HCL [Cymbalta] 60 mg PO HS Discharge Medication List Pregabalin [Lyrica] 25 mg PO BID 06/07/18 [History] Latanoprost/Pf [Latanoprost 0.005% Eye Drop] 1 drop BOTH EYES HS 08/28/19 [History] oxyCODONE-APAP 10-325MG [Percocet 10-325 mg] 1 tab PO TID PRN 03/02/20 [History] Pantoprazole [Protonix] 40 mg PO DAILY 04/30/20 [History] tiZANidine [Zanaflex] 4 mg PO HS 02/13/21 [History] Melatonin 10 mg PO HS 08/25/21 [History] Methadone [Dolophine] 10 mg PO TID 08/25/21 [History] Mirtazapine 45 mg PO HS 08/25/21 [History] Vitamin C/Biotin [Hair, Skin and Nails Chew] 1 tab PO DAILY 08/25/21 [History] Docusate [Colace] 100 mg PO DAILY #30 capsule 09/03/21 [Rx] Aspirin EC [Ecotrin Low Dose] 81 mg PO DAILY 11/02/21 [History] DULoxetine HCL [Cymbalta] 60 mg PO HS 11/02/21 [History] Linaclotide [Linzess] 290 mcg PO HS 11/02/21 [History] Magnesium 500 mg PO HS 11/02/21 [History] Meloxicam [Mobic] 7.5 mg PO HS 11/02/21 [History] QUEtiapine [SEROquel] 50 mg PO BID 11/02/21 [History] busPIRone HCl [Buspar] 20 mg PO BID 11/02/21 [History] Ondansetron Odt [Zofran Odt] 4 mg PO Q8HR PRN #20 tab 11/03/21 [Rx] Follow up Appointment(s)/Referral(s): Hill Mata MD [Primary Care Provider] - 1-2 days (please call for recheck appointment and let them know you were just discharged from the hospital) Ambreen Cm MD [STAFF PHYSICIAN] - 11/09/21 [facility], [NON-STAFF] - 1-2 Days Activity/Diet/Wound Care/Special Instructions: Activity Limited until follow-up Follow-up with primary care provider on discharge Follow-up with general surgery as needed Follow-up with orthopedics in regards to left shoulder surgery Discussed with primary care provider about physical rehab for shoulder Continue slowly to advance diet as tolerated Call your Dr with worsening of the symptoms that brought you here or any concerns Last received pain meds at 1250 Discharge Disposition: HOME SELF-CARE
== END 2021-11-03 14:20 | disposition home or self-care (01) ==
LOC: EC 14:59 → 6NMEDSUR 19:32
PROVIDERS: ADMIT Hospitalist; ATTEND Hospitalist
DX: R11.2 Nausea with vomiting, unspecified (principal); R19.7 Diarrhea, unspecified; R10.32 Left lower quadrant pain; K21.9 Gastro-esophageal reflux disease without esophagitis; E78.5 Hyperlipidemia, unspecified; Z20.822 Contact with and (suspected) exposure to COVID-19; K57.90 Diverticulosis of intestine, part unspecified, without perforation or abscess without bleeding; D64.9 Anemia, unspecified; M19.90 Unspecified osteoarthritis, unspecified site; M79.7 Fibromyalgia; F41.0 Panic disorder [episodic paroxysmal anxiety]; F31.9 Bipolar disorder, unspecified; N83.201 Unspecified ovarian cyst, right side; K59.09 Other constipation; H40.9 Unspecified glaucoma; G47.30 Sleep apnea, unspecified; Z79.82 Long term (current) use of aspirin; Z79.899 Other long term (current) drug therapy; Z88.7 Allergy status to serum and vaccine; Z88.6 Allergy status to analgesic agent; Z87.891 Personal history of nicotine dependence; Z90.710 Acquired absence of both cervix and uterus; Z96.653 Presence of artificial knee joint, bilateral; Z98.41 Cataract extraction status, right eye; Z98.42 Cataract extraction status, left eye; Z96.1 Presence of intraocular lens; Z98.890 Other specified postprocedural states; Z98.1 Arthrodesis status; Z86.73 Personal history of transient ischemic attack (TIA), and cerebral infarction without residual deficits; Z80.9 Family history of malignant neoplasm, unspecified
CPT/HCPCS: 99285; 96376 ×2; 96361 ×2; 96375 ×2; 96372; 96374; 36415; 80053 ×2; 82150; 83690; 85025 ×2; 81003; 87635; 74018; 74177; G0378 ×2; J2270 ×2; J0500; J2405; C9113; Q9967

== ENCOUNTER 2021-12-02 08:13 | Day surgery (SDC) | payer MEDICARE, OTHER ==
[2021-12-01 09:53] VITALS: BMI 29.7
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
[~2021-12-02 08:13] MED LIST changes: -.fentaNYL (PF) 50 MCG/ML AMP IV PRN; -ACETAMINOPHEN TAB 500 MG TAB PO PRN; -DEXAMETHASONE SOD PHOSPHATE 4 MG/ML 1 ML VIAL IV ONE; +LACTATED RINGERS 1,000 ML IV SCH; +LIDOCAINE 1% (10MG/ML) FOR IV START INTRADERMA PRN; -MELOXICAM 7.5 MG TAB PO PRN; -ONDANSETRON 4 MG/2 ML VIAL IVP ONE; -TRANEXAMIC ACID 1,000 MG in SODIUM CHLORIDE 0.9% 100 ML IVPB PRN
[2021-12-02] MEDS ORDERED: LACTATED RINGERS 1,000 ML IV ONE (09:00)
[2021-12-02] MEDS ORDERED: PROPOFOL 10 MG/ML 20 ML VIAL IV ONE (09:04)
[2021-12-02] MEDS ORDERED: LIDOCAINE 1% INJ 10MG/ML (20 ML MDV) ONE (09:04)
[2021-12-02 09:05] VITALS: TEMP 97.9
[2021-12-02 09:29] VITALS: RESP 16
[2021-12-02 09:43] VITALS: BP 129/73; PULSE 85
--- NOTE | 2021-12-02 09:45 | P.PCN ---
Date of Procedure: 12/02/21 Description of Procedure: PREOPERATIVE DIAGNOSIS: Sigmoid diverticulitis POSTOPERATIVE DIAGNOSIS: Sigmoid diverticulitis OPERATION: Colonoscopy to the ascending colon SURGEON: Ambreen Cm MD. ANESTHESIA: MAC. INDICATIONS: The patient is a 81-year-old female who presents with abdominal pain and recent diverticulitis. Benefits and risks were described and informed consent was obtained. DESCRIPTION OF PROCEDURE: The patient had undergone Sutab prep. The patient had been brought into the operating room and laid in the left lateral decubitus position. After adequate intravenous sedation, the rectum was examined with 2% lidocaine jelly. No external hemorrhoids were encountered. The rectal tone was within normal limits. No lesions were palpated in the rectal vault. An Olympus colonoscope was advanced to the descending colon. The prep was excellent. Sigmoid diverticulosis was encountered. Sigmoid colon was redundant. No colonic polyps were found. No evidence of focal colitis was found. Retroflexion of the scope demonstrated grade 1 internal hemorrhoids without active bleeding or inflammation. The colon was desufflated. The patient had tolerated the procedure well. Withdrawal time was over 6 minutes. FINDINGS: Aronchick preparation quality scale 1 (1-5) Internal hemorrhoids, grade 1 Sigmoid diverticulosis with redundant colon No external prolapsed hemorrhoids. No arteriovenous malformations. No adenomatous polyps. No focal colitis. RECOMMENDATIONS: Lower endoscopy as needed Plan - Discharge Summary Discharge Rx Participant: No New Discharge Prescriptions: Continue Pregabalin [Lyrica] 25 mg PO BID Latanoprost/Pf [Latanoprost 0.005% Eye Drop] 1 drop BOTH EYES HS oxyCODONE-APAP 10-325MG [Percocet 10-325 mg] 1 tab PO TID PRN PRN Reason: Pain Pantoprazole [Protonix] 40 mg PO DAILY tiZANidine [Zanaflex] 4 mg PO HS PRN PRN Reason: Muscle Spasm Melatonin 10 mg PO HS QUEtiapine [SEROquel] 50 mg PO HS Linaclotide [Linzess] 290 mcg PO HS Aspirin EC [Ecotrin Low Dose] 81 mg PO DAILY Magnesium 500 mg PO HS Docusate [Colace] 100 mg PO DAILY PRN PRN Reason: CONSTIPATION Methadone [Dolophine] 10 mg PO TID Mirtazapine 45 mg PO HS busPIRone HCl [Buspar] 20 mg PO BID DULoxetine HCL [Cymbalta] 60 mg PO HS Discharge Medication List Pregabalin [Lyrica] 25 mg PO BID 06/07/18 [History] Latanoprost/Pf [Latanoprost 0.005% Eye Drop] 1 drop BOTH EYES HS 08/28/19 [History] oxyCODONE-APAP 10-325MG [Percocet 10-325 mg] 1 tab PO TID PRN 03/02/20 [History] Pantoprazole [Protonix] 40 mg PO DAILY 04/30/20 [History] tiZANidine [Zanaflex] 4 mg PO HS PRN 02/13/21 [History] Melatonin 10 mg PO HS 08/25/21 [History] Methadone [Dolophine] 10 mg PO TID 08/25/21 [History] Mirtazapine 45 mg PO HS 08/25/21 [History] Aspirin EC [Ecotrin Low Dose] 81 mg PO DAILY 11/02/21 [History] DULoxetine HCL [Cymbalta] 60 mg PO HS 11/02/21 [History] Linaclotide [Linzess] 290 mcg PO HS 11/02/21 [History] Magnesium 500 mg PO HS 11/02/21 [History] QUEtiapine [SEROquel] 50 mg PO HS 11/02/21 [History] busPIRone HCl [Buspar] 20 mg PO BID 11/02/21 [History] Docusate [Colace] 100 mg PO DAILY PRN 12/01/21 [History] Follow up Appointment(s)/Referral(s): Ambreen Cm MD [STAFF PHYSICIAN] - 12/28/21 Patient Instructions/Handouts: *Surgery [facility] - (Anesthesia) Endoscopy Discharge Instructions, Colonoscopy (DC), Diverticulosis Diet (GEN), Diverticulosis (GEN) Activity/Diet/Wound Care/Special Instructions: Increase intake of diet with salads daily Discharge Disposition: HOME SELF-CARE
== END 2021-12-02 10:09 | disposition home or self-care (01) ==
LOC: ORWHC2ENDO 08:13
PROVIDERS: ATTEND Surgery Plastic and Reconstructive Surgery
DX: K57.32 Diverticulitis of large intestine without perforation or abscess without bleeding (principal); K57.30 Diverticulosis of large intestine without perforation or abscess without bleeding; K64.0 First degree hemorrhoids; Q43.8 Other specified congenital malformations of intestine; M79.7 Fibromyalgia; E78.5 Hyperlipidemia, unspecified; K21.9 Gastro-esophageal reflux disease without esophagitis; Z86.73 Personal history of transient ischemic attack (TIA), and cerebral infarction without residual deficits; R41.3 Other amnesia; M19.90 Unspecified osteoarthritis, unspecified site; G47.30 Sleep apnea, unspecified; H40.9 Unspecified glaucoma; G89.29 Other chronic pain; M54.9 Dorsalgia, unspecified; I95.9 Hypotension, unspecified; Z98.41 Cataract extraction status, right eye; Z98.42 Cataract extraction status, left eye; Z90.710 Acquired absence of both cervix and uterus; Z96.653 Presence of artificial knee joint, bilateral; Z98.1 Arthrodesis status; Z98.890 Other specified postprocedural states; Z87.891 Personal history of nicotine dependence; Z80.9 Family history of malignant neoplasm, unspecified; Z79.82 Long term (current) use of aspirin; Z79.899 Other long term (current) drug therapy; Z88.5 Allergy status to narcotic agent; Z91.09 Other allergy status, other than to drugs and biological substances
CPT/HCPCS: 45378; J2001; J2704

== ENCOUNTER 2022-01-26 09:05 | Emergency (ER) | payer MEDICARE, OTHER ==
[2022-01-26 09:34] VITALS: TEMP 98.3
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
[2022-01-26] MEDS ORDERED: ONDANSETRON 4 MG/2 ML VIAL IVP STA ×2 (10:21→15:33)
[2022-01-26] MEDS ORDERED: SODIUM CHLORIDE 0.9% 1,000 ML IV ONE (10:21)
[2022-01-26] MEDS ORDERED: HYDROmorphone 1 MG/ML 1 ML SYRINGE IVP STA ×3 (10:21→15:33)
[2022-01-26 11:33] LABS: Basophils % (A) 1 %; Eosinophils # (A) 0.1 k/uL (0-0.7); Eosinophils % (A) 1 %; HCT 38.6 % (34.0-46.0); HGB 12.5 gm/dL (11.4-16.0); Lymphocytes # (A) 1.6 k/uL (1.0-4.8); Lymphocytes % (A) 19 %; MCH 27.4 pg (25.0-35.0); MCHC 32.5 g/dL (31.0-37.0); MCV 84.4 fL (80.0-100.0); Mean Platelet Volume 7.6; Monocytes # (A) 0.5 k/uL (0-1.0); Monocytes % (A) 6 %; Neutrophils % (A) 72 %; Platelet Count 289 k/uL (150-450); RBC 4.57 m/uL (3.80-5.40); WBC 8.4 k/uL (3.8-10.6)
[2022-01-26 11:41] LABS: Albumin 4.6 g/dL (3.5-5.0); Calcium 9.6 mg/dL (8.4-10.2); Potassium 4.3 mmol/L (3.5-5.1); Total Bilirubin 0.6 mg/dL (0.2-1.3); Total Protein 8.5 g/dL (6.3-8.2)
[2022-01-26 12:13] LABS: Appearance,Urine Clear (Clear); Bilirubin,Urine Negative (Negative); Blood,Urine Negative (Negative); Color,Urine Yellow; Glucose,Urine (UA) Negative (Negative); Hyaline Casts,Urine 3 /lpf (0-2); Ketones,Urine Trace (Negative); Leukocyte Esterase,Urine Negative (Negative); Mucus,Urine Many /hpf; Nitrite,Urine Negative (Negative); Protein,Urine 1+ (Negative); RBC,Urine 1 /hpf (0-5); Specific Gravity,Urine 1.037 (1.001-1.035); Squamous Epithelial Cell,Urine 2 /hpf (0-4); WBC,Urine 2 /hpf (0-5)
[2022-01-26 12:15] LABS: Partial Thromboplastin Time 22.5 sec (22.0-30.0); Prothrombin Time 10.4 sec (9.0-12.0)
[2022-01-26 14:45] VITALS: BP 135/75; PULSE 92; RESP 20
== END 2022-01-26 16:03 | disposition home or self-care (01) ==
LOC: EC 09:05
DX: R10.84 Generalized abdominal pain (principal); R11.2 Nausea with vomiting, unspecified; K21.9 Gastro-esophageal reflux disease without esophagitis; E78.5 Hyperlipidemia, unspecified; M19.90 Unspecified osteoarthritis, unspecified site; Z87.891 Personal history of nicotine dependence; M79.7 Fibromyalgia; Z79.82 Long term (current) use of aspirin; Z79.899 Other long term (current) drug therapy; Z86.73 Personal history of transient ischemic attack (TIA), and cerebral infarction without residual deficits; Z88.7 Allergy status to serum and vaccine; Z88.6 Allergy status to analgesic agent
CPT/HCPCS: 36415; 93005; 80053; 83605; 83690; 85025; 85610; 85730; 81001; 99284; 96374; 96375; 96376; 96361; J2405; J1170

== ENCOUNTER → 2022-02-16 | Outpatient (CLI) | payer MEDICARE, OTHER ==
--- NOTE | 2022-02-16 14:52 | CT ---
EXAMINATION TYPE: CT hip LT wo con DATE OF EXAM: 02/16/2022 COMPARISON: CT abdomen and pelvis November 02, 2021 HISTORY: Lt hip pain CT DLP: 236.9 mGycm Automated exposure control for dose reduction was used. FINDINGS: No acute fracture or dislocation of the left hip. [id number] axial joint space loss and mild ac etabular spurring in the left hip redemonstrated. No acute fracture or dislocation is seen. No signif icant change from recent CT. Femoral head shape is maintained. Surgical changes to the sigmoid colon are partially imaged. No groin hernia or adenopathy is seen. Mu scle bulk in the left hip is maintained. There is partial visualization of surgical change in the low er lumbar spine on this study. IMPRESSION: As above.
== END | disposition home or self-care (01) ==
LOC: RADCTMAIN 13:18
PROVIDERS: ATTEND Pain Medicine Interventional Pain Medicine
DX: M25.852 Other specified joint disorders, left hip (principal)

== ENCOUNTER 2022-03-24 08:34 | Inpatient (IN) | payer MEDICARE, OTHER ==
[2022-03-24] MEDS ORDERED: POLYETHYLENE GLYCOL LYTES SOLN 4,000 ML SOLN.RECON PO ONE (10:12)
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
[2022-03-24] MEDS ORDERED: METOCLOPRAMIDE 5 MG/ML 2 ML VIAL IVP PRN (10:15)
[2022-03-24] MEDS ORDERED: NALOXONE 0.4 MG/ML 1 ML VIAL IV PRN (10:15)
--- NOTE | 2022-03-24 11:01 | P.PCN ---
Date of Procedure: 03/24/22 Description of Procedure: PREOPERATIVE DIAGNOSIS: Diverticulitis Chronic constipation POSTOPERATIVE DIAGNOSIS: Sigmoid diverticulitis with stricture, partial large bowel obstruction OPERATION: Colonoscopy with injection of Lin ink, 4 mL Colonoscopy to the cecum, ileocecal valve and appendiceal orifice. SURGEON: Ambreen Cm MD. ANESTHESIA: MAC. INDICATIONS: The patient is a 61-year-old female who presents for colonoscopy screening. Benefits and risks were described and informed consent was obtained. DESCRIPTION OF PROCEDURE: The patient had undergone Sutab prep. The patient had been brought into the operating room and laid in the left lateral decubitus position. After adequate intravenous sedation, the rectum was examined with 2% lidocaine jelly. No external hemorrhoids were encountered. The rectal tone was within normal limits. No lesions were palpated in the rectal vault. An Olympus colonoscope was advanced until the cecum, ileocecal valve and appendiceal orifice were clearly viewed. The prep was fair. Scattered diverticulosis was encountered with stricture at 20 cm from anal verge. No colonic polyps were found. No evidence of focal colitis was found. Retroflexion of the scope demonstrated grade 1 internal hemorrhoids without active bleeding or inflammation. The colon was desufflated. The patient had tolerated the procedure well. Withdrawal time was over 6 minutes. FINDINGS: Aronchick preparation quality scale 3 (1-5) Internal hemorrhoids, grade 1 No external prolapsed hemorrhoids. No arteriovenous malformations. No adenomatous polyps. No focal colitis. Pandiverticulosis with sigmoid colon stricture 20 cm from the anal verge RECOMMENDATIONS: Recommend sigmoid colectomy for colonic stricture. Inpatient admission advised.
[2022-03-24] MEDS ORDERED: HYDROmorphone 0.5 MG/0.5 ML SYRINGE IVP ONE ×3 (11:15→12:35)
[2022-03-24] MEDS ORDERED: NEOMYCIN 500 MG TAB PO ONE (13:00)
[2022-03-24] MEDS ORDERED: SODIUM CHLORIDE 0.9% 2,000 ML IV ONE (13:15)
[2022-03-24 13:17] LABS: Basophils % (A) 1 %; Eosinophils # (A) 0.2 k/uL (0-0.7); Eosinophils % (A) 3 %; HGB 10.1 gm/dL (11.4-16.0); Hypochromasia Slight; Lymphocytes # (A) 1.5 k/uL (1.0-4.8); Lymphocytes % (A) 25 %; MCH 27.1 pg (25.0-35.0); MCHC 31.5 g/dL (31.0-37.0); MCV 85.9 fL (80.0-100.0); Monocytes # (A) 0.4 k/uL (0-1.0); Monocytes % (A) 7 %; Neutrophils # (A) 3.6 k/uL (1.3-7.7); Neutrophils % (A) 62 %; Platelet Count 303 k/uL (150-450); RBC 3.73 m/uL (3.80-5.40); RDW 14.8 % (11.5-15.5); WBC 5.9 k/uL (3.8-10.6)
[2022-03-24 13:25] LABS: ALT 14 U/L (4-34); AST 23 U/L (14-36); African American GFR (CKD) >90 (>60 ml/min/1.73 sqM); Albumin 4.1 g/dL (3.5-5.0); Alkaline Phosphatase 82 U/L (38-126); Anion Gap 11 mmol/L; Blood Urea Nitrogen 14 mg/dL (7-17); Calcium 8.9 mg/dL (8.4-10.2); Carbon Dioxide 25 mmol/L (22-30); Chloride 103 mmol/L (98-107); Glucose 121 mg/dL (74-99); Non-African American GFR(CKD) 85 (>60 ml/min/1.73 sqM); Potassium 4.4 mmol/L (3.5-5.1); Sodium 139 mmol/L (137-145); Total Bilirubin 0.3 mg/dL (0.2-1.3); Total Protein 7.5 g/dL (6.3-8.2)
[2022-03-24] MEDS: METRONIDAZOLE 500 MG PO SCH ×3 (13:38→22:38)
[2022-03-24] MEDS: NEOMYCIN 500 MG PO SCH ×3 (13:39→22:38)
[2022-03-24] MEDS: ONDANSETRON 4 MG/2 ML VIAL IVP SCH ×2 (14:17→17:24)
[2022-03-24] MEDS: oxyCODONE-APAP 10-325MG 1 EACH TAB PO SCH ×3 (14:33→22:36)
[2022-03-24] MEDS: HYDROmorphone 1 MG/ML 1 ML SYRINGE IVP PRN ×2 (16:11→20:07)
[2022-03-24] MEDS: D5-0.45% NACL WITH KCL 20MEQ/L 1,000 ML IV SCH (18:59)
[2022-03-24] MEDS: MIRTAZAPINE 45 MG TABLET PO SCH (20:06)
[2022-03-24] MEDS: MELATONIN 5 MG TABLET PO SCH (20:06)
[2022-03-24] MEDS: busPIRone HCl 10 MG TAB PO SCH (20:06)
[2022-03-24] MEDS: LATANOPROST 0.005% OPHTH DROPS 2.5 ML BTL BOTH EYES SCH (20:06)
[2022-03-24] MEDS: FAMOTIDINE 20 MG TAB PO SCH (20:06)
[2022-03-24] MEDS: LACTATED RINGERS 1,000 ML IV SCH (23:13)
[2022-03-25] MEDS: ONDANSETRON 4 MG/2 ML VIAL IVP SCH ×2 (00:07→05:18)
[2022-03-25] MEDS: HYDROmorphone 1 MG/ML 1 ML SYRINGE IVP PRN ×4 (00:07→19:47)
[2022-03-25] MEDS: D5-0.45% NACL WITH KCL 20MEQ/L 1,000 ML IV SCH ×2 (01:18→19:06)
[2022-03-25] MEDS ORDERED: metroNIDAZOLE-NS PMX 500 MG in SALINE 1 100ML.BAG IVPB PRN (05:00)
[2022-03-25] MEDS ORDERED: MELOXICAM 7.5 MG TAB PO PRN (07:00)
[2022-03-25] MEDS ORDERED: ACETAMINOPHEN TAB 500 MG TAB PO PRN (07:00)
[2022-03-25] MEDS ORDERED: ALVIMOPAN 12 MG CAPSULE PO PRN (07:00)
[2022-03-25] MEDS ORDERED: HEPARIN SODIUM,PORCINE/PF 5,000 UNIT/0.5 ML SYRINGE SQ ONE (08:00)
[2022-03-25] MEDS ORDERED: Antibiotics per Pharmacy 1 EACH MISC MISCELLANE PRN (08:00)
[2022-03-25] MEDS: LACTATED RINGERS 1,000 ML IV SCH ×3 (08:25→13:53)
[2022-03-25] MEDS ORDERED: MIDAZOLAM 2 MG/2 ML VIAL IV ONE (08:25)
[2022-03-25] MEDS ORDERED: IV FLUID CONTINUATION 800 ML IV ONE (08:25)
[2022-03-25] MEDS ORDERED: fentaNYL (PF) 50 MCG/ML 2 ML AMP IV ONE ×2 (08:25→08:43)
[2022-03-25] MEDS ORDERED: DEXAMETHASONE SOD PHOSPHATE 4 MG/ML 1 ML VIAL IVP ONE (08:27)
[2022-03-25] MEDS ORDERED: MIDAZOLAM 2 MG/2 ML VIAL IVP ONE (08:40)
[2022-03-25 08:53] LABS: Glucose,Whole Blood 95 mg/dL (70-110)
--- NOTE | 2022-03-25 09:25 | P.ANPRN ---
Procedure Note - Anesthesia - Nerve Block Performed Bilateral Erector Spinae Time Out Performed: Yes (08:40) Date of Procedure: 03/25/22 Procedure Start Time: :40 Procedure Stop Time: 08:49 Location of Patient: PreOp Indication: Acute Post-Operative Pain, Requested by Surgeon (Dr Morgan) Sedation Type: Sedate with meaningful contact maintained Preparation: Sterile Prep Position: Prone Catheter: None Needle Types: Pajunk Needle Gauge: 21 Ultrasound used to visualize needle placement: Yes Ultrasound used to observe medication spread: Yes Injectate: 0.5% Ropivacaine (see comment for volume) (15cc +5cc PF Normal saline each side) Blood Aspirated: No Pain Paresthesia on Injection Noted: No Resistance on Injection: Normal Image Stored and Saved: Yes Events: Uneventful and Well Tolerated
--- NOTE | 2022-03-25 09:58 | P.HPADDEND ---
H&P Addendum H&P Addendum Date: 03/25/22 Benefits and risks of similar resection was prescribed due to recurrent stenosis from diverticulitis of the sigmoid colon. Localized resection described with anastomosis. All questions addressed. Pain management concerns addressed with regional block.
[2022-03-25] MEDS ORDERED: BUPIVACAIN-EPI 0.25%-1:200,000 30 ML VIAL SQ ONE ×2 (10:04→10:35)
[2022-03-25] MEDS ORDERED: LACTATED RINGERS 1,000 ML IV ONE (10:06)
[2022-03-25 10:41] LABS: Basophils # (A) 0.02 X 10*3/uL (0.00-0.10); Basophils % (A) 0.4 %; Eosinophils # (A) 0.15 X 10*3/uL (0.04-0.35); Eosinophils % (A) 3.2 %; HCT 31.6 % (37.2-46.3); HGB 9.6 g/dL (12.0-15.0); Immature Grans, Automated 0 %; Lymphocytes # (A) 1.55 X 10*3/uL (0.90-5.00); Lymphocytes % (A) 32.7 %; MCH 25.4 pg (27.0-32.0); MCHC 30.4 g/dL (32.0-37.0); MCV 83.6 fL (80.0-97.0); Monocytes # (A) 0.53 X 10*3/uL (0.20-1.00); Monocytes % (A) 11.2 %; NRBC Per 100 WBC 0 /100 WBCS (0.0-0.0); Neutrophils # (A) 2.49 X 10*3/uL (1.80-7.70); Neutrophils % (A) 52.5 %; Platelet Count 286 X 10*3/uL (140-440); RBC 3.78 X 10*6/uL (4.10-5.20); RDW 15.6 % (11.5-14.5); WBC 4.74 X 10*3/uL (4.50-10.00)
[2022-03-25] MEDS: oxyCODONE-APAP 10-325MG 1 EACH TAB PO SCH ×4 (10:42→22:12)
[2022-03-25] MEDS: FAMOTIDINE 20 MG TAB PO SCH (10:43)
[2022-03-25 10:53] LABS: African American GFR (CKD) 95.5 (60.0-200.0); Albumin/Globulin Ratio 1.29 (1.60-3.17); Anion Gap 12.2 mmol/L (10.00-18.00); BUN/Creat Ratio 9.71 Ratio (12.00-20.00); Blood Urea Nitrogen 6.8 mg/dL (9.0-27.0); Calcium 9.1 mg/dL (8.7-10.3); Carbon Dioxide 21.8 mmol/L (20.0-27.5); Globulin 3.1 g/dL (1.6-3.3); Magnesium 2.2 mg/dL (1.5-2.4); Non-African American GFR(CKD) 82.4 (60.0-200.0); Phosphorus 3.6 mg/dL (2.4-5.1); Potassium 4.8 mmol/L (3.5-5.5); Total Bilirubin 0.3 mg/dL (0.30-1.20); Total Protein 7.1 g/dL (6.2-8.2)
[2022-03-25] MEDS: busPIRone HCl 10 MG TAB PO SCH ×2 (11:51→21:50)
[2022-03-25] MEDS ORDERED: HYDROmorphone 1 MG/ML 1 ML SYRINGE IVP ONE (12:15)
[2022-03-25] MEDS ORDERED: tiZANidine 4 MG TAB PO PRN (12:26)
[2022-03-25] MEDS ORDERED: HYDROmorphone 0.5 MG/0.5 ML SYRINGE IVP ONE (12:33)
--- NOTE | 2022-03-25 12:55 | P.OP ---
Date of Procedure: 03/25/22 Description of Procedure: SURGEON: BASIM PARDO MD PREOPERATIVE DIAGNOSES: 1. Recurrent sigmoid diverticulitis with stricture with chronic left lower quadrant abdominal pain 2. Chronic constipation 3. Chronic pain syndrome 4. Gastroesophageal reflux disease 5. Fibromyalgia 6. Depressive disorder 7. Anxiety disorder 8. Traumatic brain injury 9. Bipolar disorder 10. Obstructive sleep apnea 11. Hyperlipidemia 12. Glaucoma 13. Irritable bowel syndrome POSTOPERATIVE DIAGNOSES: 1. 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 Chronic constipation 3. Chronic pain syndrome 4. Gastroesophageal reflux disease 5. Fibromyalgia 6. Depressive disorder 7. Anxiety disorder 8. Traumatic brain injury 9. Bipolar disorder 10. Obstructive sleep apnea 11. Hyperlipidemia 12. Glaucoma 13. Irritable bowel syndrome 14. Right ovarian cyst 15. Metastatic pelvic peritoneal tumor deposits 16. Abdominal ascites OPERATION: 1. Robotic-assisted daVinci Xi laparoscopic sigmoid colectomy aborted due to new metastatic pelvic peritoneal tumors of likely malignant potential ovarian/fallopian 2. Intraoperative flexible colonoscopy for sigmoidoscopy 3. Diagnostic laparoscopy with peritoneal washing and cell cytology for right ovarian cyst and peritoneal deposits 4. On table rectal lavage Anesthesia: GETA, local ESTIMATED BLOOD LOSS: 5 mL SPECIMENS REMOVED: Peritoneal fluid, peritoneal deposit from right fallopian tube COMPLICATIONS: None. Condition: stable Disposition: floor FINDINGS: 1. Pelvic peritoneal tumor deposits 1-1.5 cm adherent to right fallopian tube, right ovary, sigmoid colon including anastomosis 2. Right ovarian cyst, 3-4 cm 3. Peritoneal fluid/ascites sent for cell cytology 4. Left ovary and fallopian to unremarkable 5. Uterus absent due to hysterectomy INDICATIONS: The patient is a 81-year-old female with personal history of moderate severe diverticulosis presents with recurrent left lower quadrant abdominal pain. Colonoscopy demonstrated stricture along the anastomosis with tattoo marker placed yesterday. Multiple diagnostic studies including CT of the abdomen pelvis were obtained prior. Surgical resection with colectomy described. Benefits and risks, including infection, bowel injury, ureteral injury, colostomy creation and possibility for additional surgery was discussed at length. Informed consent was obtained. All questions of the patient and family were answered. DESCRIPTION: Earlier the patient had undergone a bowel prep using the enhanced colon recovery program. The patient was transferred to the operating room onto a split leg table and repositioned to modified lithotomy following intubation. A Ta catheter was placed. On table rectal lavage using 500 mL normal saline and chlorhexidine soap (1:100) was used evacuating feces from the rectum and sigmoid colon. The abdomen was then prepped and draped in standard sterile fashion as Ioban was placed along the abdomen to minimize any contamination of skin floor. After a timeout protocol was performed, attention was then brought to the left upper quadrant whereby a 0 degree 5 mm laparoscopic trocar entry was performed. The abdominal cavity was entered and insufflated to 15 mmHg pressure, which was tolerated well. Next trocars were placed 15 cm superior from the pelvis. A 12-mm trocar was placed along the right lateral abdominal wall. A 8 mm port was placed along the right upper quadrant. Ports were placed 10 cm apart from each other including 15-20 cm away from the target anatomy of the left pelvis. The 5-mm port was left in the left upper quadrant. An 8 mm robotic port was placed at the left upper quadrant. The stapler 12-mm port was arranged along the left lateral abdominal wall. The patient was then placed in Trendelenburg position at 21. The robotic da Kierra XI system was primed. The robot was docked from the right side of the patient. Using atraumatic graspers and vessel sealer, the robotic system was docked and primed as described. Instruments were interchanged by the television production assistant including robotic graspers and vessel sealer. Diagnostic laparoscopy was performed where the gallbladder was mildly distended however unremarkable. Peritoneal ascites was identified and clear. Peritoneal ascitic fluid was aspirated for cell cytology. The liver surface unremarkable. Within the pelvis, large 1 cm to 1.5 cm peritoneal deposits were found involving the right fallopian tube, right ovary, prior sigmoid anastomosis, distal sigmoid colon and rectum. The left ovary and fallopian tube were unremarkable. Peritoneal deposit was also found at the dome of the bladder, 5-mm. Tattoo dye was identified of the anastomosis of the sigmoid colon. Tumor deposits was found encroaching along the prior stapled anastomosis of the sigmoid colon. Complete excisional biopsy of 1 cm tumor along the right fallopian tube was done using robotic scissors with cautery. Hemostasis was excellent. I went to the foot of the bed to perform intraoperative colonoscopy and identify extent of peritoneal seeding along the rectum and sigmoid colon. Colonoscope was entered along the rectum where tumor seeding along the serosa was found starting from 15 cm to 25 cm from the anal verge. With the significant finding of peritoneal tumor deposits, sigmoid colectomy is aborted. The robot was undocked. Next all pneumoperitoneum was evacuated from the abdominal cavity. The trocar sites were reapproximated using 4-0 Monocryl in an interrupted subcuticular fashion. Local anesthetic was infiltrated to all wounds for postop analgesia. All incisions were also cleansed with diluted hydrogen peroxide. A Exofin was applied to the rest of the skin incisions. The patient was extubated successfully. The patient was transferred to the postanesthesia care unit in stable condition. Intraoperative photos were reviewed with the patient's family including new findings of metastatic peritoneal deposits of high malignant potential involving the right ovary/fallopian tube.
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
--- NOTE | 2022-03-25 13:41 | P.PN ---
Progress Note - Text Progress Note Date: 03/25/22 Updates from intraoperative findings reviewed with patient for locally metastatic invasive metastatic malignancy. Biopsies were sent and pending. Oncology consultation obtained with tumor markers initially sent for ovarian cancer. Medical consultation obtained.
[2022-03-25] MEDS: PANTOPRAZOLE 40 MG TABLET PO SCH (13:47)
[2022-03-25] MEDS: LORazepam 1 MG TAB PO PRN ×3 (13:55→22:50)
[2022-03-25] MEDS: DICYCLOMINE 20 MG TAB PO SCH ×3 (14:10→21:50)
[2022-03-25] MEDS: KETOROLAC 15 MG/ML 1 ML VIAL IVP SCH ×2 (14:10→21:49)
[2022-03-25] MEDS ORDERED: METHADONE 10 MG TAB PO PRN (16:00)
[2022-03-25 17:53] LABS: Cancer Antigen 125 54.8 U/mL (0.0-30.1)
[2022-03-25 18:13] LABS: % Iron Saturation 32.92 (12.00-45.00); Ferritin 33.3 ng/mL (10.0-291.0)
[2022-03-25 18:14] LABS: Carcinoembryonic Antigen 36.5 ng/mL (0.0-4.9)
[2022-03-25 18:16] LABS: Cancer Antigen 19-9 <2.0 U/mL (0.0-34.9)
[2022-03-25] MEDS ORDERED: DULoxetine HCL 60 MG CAPSULE.DR PO SCH (21:00)
[2022-03-25] MEDS ORDERED: DOCUSATE 100 MG CAP PO SCH (21:00)
[2022-03-25] MEDS ORDERED: EYE BOTH EYES SCH (21:00)
[2022-03-25] MEDS: MELATONIN 5 MG TABLET PO SCH (21:50)
[2022-03-25] MEDS: LATANOPROST 0.005% OPHTH DROPS 2.5 ML BTL BOTH EYES SCH (21:50)
[2022-03-25] MEDS: SENNOSIDES-DOCUSATE SODIUM 1 EACH TAB PO SCH (21:50)
[2022-03-25] MEDS: MAGNESIUM OXIDE 400 MG TAB PO SCH (21:50)
[2022-03-25] MEDS: MIRTAZAPINE 45 MG TABLET PO SCH (21:52)
[2022-03-25] MEDS: NON FORMULARY DRUG (Linaclotide [Linzess] 290 MCG Capsule) PO SCH (21:59)
[2022-03-25] MEDS: QUEtiapine 100 MG TAB PO SCH (22:50)
[2022-03-26] MEDS: D5-0.45% NACL WITH KCL 20MEQ/L 1,000 ML IV SCH ×3 (01:06→17:01)
[2022-03-26] MEDS: ONDANSETRON 4 MG/2 ML VIAL IVP SCH (01:16)
[2022-03-26] MEDS: KETOROLAC 15 MG/ML 1 ML VIAL IVP SCH ×4 (02:41→20:22)
[2022-03-26] MEDS: oxyCODONE-APAP 10-325MG 1 EACH TAB PO SCH ×4 (08:14→21:16)
[2022-03-26] MEDS: PANTOPRAZOLE 40 MG TABLET PO SCH (08:15)
[2022-03-26] MEDS: SENNOSIDES-DOCUSATE SODIUM 1 EACH TAB PO SCH ×2 (08:16→20:25)
[2022-03-26] MEDS: busPIRone HCl 10 MG TAB PO SCH ×2 (08:17→20:25)
[2022-03-26 08:27] LABS: Basophils % (A) 1 %; Eosinophils # (A) 0.1 k/uL (0-0.7); Eosinophils % (A) 2 %; HCT 31.1 % (34.0-46.0); HGB 9.8 gm/dL (11.4-16.0); Hypochromasia Moderate; Lymphocytes # (A) 1.4 k/uL (1.0-4.8); Lymphocytes % (A) 24 %; MCH 26.9 pg (25.0-35.0); MCHC 31.4 g/dL (31.0-37.0); MCV 85.7 fL (80.0-100.0); Mean Platelet Volume 7.3; Monocytes # (A) 0.3 k/uL (0-1.0); Monocytes % (A) 6 %; Neutrophils # (A) 3.9 k/uL (1.3-7.7); Neutrophils % (A) 65 %; Platelet Count 250 k/uL (150-450); RBC 3.63 m/uL (3.80-5.40); RDW 14.7 % (11.5-15.5)
[2022-03-26 08:36] LABS: ALT 10 U/L (4-34); AST 22 U/L (14-36); African American GFR (CKD) >90 (>60 ml/min/1.73 sqM); Albumin 3.4 g/dL (3.5-5.0); Albumin/Globulin Ratio 1.1; Alkaline Phosphatase 74 U/L (38-126); Anion Gap 8 mmol/L; Bilirubin,Unconjugated 0.1 mg/dL (0.0-1.1); Blood Urea Nitrogen 7 mg/dL (7-17); Calcium 8.7 mg/dL (8.4-10.2); Carbon Dioxide 26 mmol/L (22-30); Chloride 103 mmol/L (98-107); Globulin 3.1 g/dL; Glucose 109 mg/dL (74-99); Magnesium 1.8 mg/dL (1.6-2.3); Non-African American GFR(CKD) 82 (>60 ml/min/1.73 sqM); Potassium 4.2 mmol/L (3.5-5.1); Sodium 137 mmol/L (137-145); Total Bilirubin 0.3 mg/dL (0.2-1.3); Total Protein 6.5 g/dL (6.3-8.2)
[2022-03-26] MEDS ORDERED: ENOXAPARIN 30 MG/0.3 ML SYRINGE SQ SCH (09:00)
[2022-03-26] MEDS ORDERED: ASPIRIN 81 MG PO SCH (09:00)
[2022-03-26] MEDS: HYDROmorphone 1 MG/ML 1 ML SYRINGE IVP PRN ×3 (10:22→20:21)
[2022-03-26] MEDS: QUEtiapine 100 MG TAB PO SCH ×2 (10:23→20:26)
[2022-03-26] MEDS: DICYCLOMINE 20 MG TAB PO SCH ×4 (10:23→21:16)
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
[2022-03-26] MEDS: LORazepam 1 MG TAB PO PRN (10:30)
--- NOTE | 2022-03-26 10:31 | P.PN ---
Progress Note - Text Progress Note Date: 03/26/22 Patient's resting comfortably in her bed. She has minimal abdominal pain. She is status post ovarian resection by Dr. Cam. On exam vital signs are stable. Abdomen is soft. Incision sites are clean dry tach. New. Patient he received supportive care.
[2022-03-26] MEDS: DULoxetine HCL 60 MG CAPSULE.DR PO SCH (20:25)
[2022-03-26] MEDS: DOCUSATE 100 MG CAP PO SCH (20:25)
[2022-03-26] MEDS: MAGNESIUM OXIDE 400 MG TAB PO SCH (20:26)
[2022-03-26] MEDS: LATANOPROST 0.005% OPHTH DROPS 2.5 ML BTL BOTH EYES SCH (20:26)
[2022-03-26] MEDS: MELATONIN 5 MG TABLET PO SCH (20:26)
[2022-03-26] MEDS: MIRTAZAPINE 45 MG TABLET PO SCH (20:26)
[2022-03-26] MEDS: NON FORMULARY DRUG (Linaclotide [Linzess] 290 MCG Capsule) PO SCH (21:04)
[2022-03-26] MEDS: LACTATED RINGERS 1,000 ML IV SCH (22:22)
[2022-03-27] MEDS: HYDROmorphone 1 MG/ML 1 ML SYRINGE IVP PRN ×7 (00:45→22:58)
[2022-03-27] MEDS: KETOROLAC 15 MG/ML 1 ML VIAL IVP SCH ×4 (02:30→20:05)
[2022-03-27] MEDS: D5-0.45% NACL WITH KCL 20MEQ/L 1,000 ML IV SCH ×2 (03:55→13:51)
[2022-03-27] MEDS: LORazepam 1 MG TAB PO PRN ×4 (05:49→19:46)
[2022-03-27] MEDS: ENOXAPARIN 30 MG/0.3 ML SYRINGE SQ SCH (08:20)
[2022-03-27] MEDS: DICYCLOMINE 20 MG TAB PO SCH ×4 (08:21→21:18)
[2022-03-27] MEDS: SENNOSIDES-DOCUSATE SODIUM 1 EACH TAB PO SCH ×2 (08:21→21:18)
[2022-03-27] MEDS: busPIRone HCl 10 MG TAB PO SCH ×2 (08:21→21:15)
[2022-03-27] MEDS: oxyCODONE-APAP 10-325MG 1 EACH TAB PO SCH ×4 (08:21→21:22)
[2022-03-27] MEDS: PANTOPRAZOLE 40 MG TABLET PO SCH (08:22)
[2022-03-27] MEDS: ASPIRIN 81 MG PO SCH (08:22)
[2022-03-27] MEDS: QUEtiapine 100 MG TAB PO SCH ×2 (08:32→21:15)
--- NOTE | 2022-03-27 09:15 | P.PN ---
Progress Note - Text Progress Note Date: 03/27/22 Patient has complaints of incisional pain. On exam vital signs are stable. Abdomen soft. Status post excision of ovarian mass. Patient will continue supportive care.
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
[2022-03-27] MEDS: DOCUSATE 100 MG CAP PO SCH (21:15)
[2022-03-27] MEDS: MELATONIN 5 MG TABLET PO SCH (21:15)
[2022-03-27] MEDS: DULoxetine HCL 60 MG CAPSULE.DR PO SCH (21:15)
[2022-03-27] MEDS: LATANOPROST 0.005% OPHTH DROPS 2.5 ML BTL BOTH EYES SCH (21:15)
[2022-03-27] MEDS: MAGNESIUM OXIDE 400 MG TAB PO SCH (21:16)
[2022-03-27] MEDS: MIRTAZAPINE 45 MG TABLET PO SCH (21:16)
[2022-03-27] MEDS: NON FORMULARY DRUG (Linaclotide [Linzess] 290 MCG Capsule) PO SCH (21:16)
[2022-03-28] MEDS: LACTATED RINGERS 1,000 ML IV SCH (00:10)
[2022-03-28] MEDS: D5-0.45% NACL WITH KCL 20MEQ/L 1,000 ML IV SCH ×3 (00:38→17:45)
[2022-03-28] MEDS: KETOROLAC 15 MG/ML 1 ML VIAL IVP SCH ×4 (01:08→13:49)
[2022-03-28] MEDS: HYDROmorphone 1 MG/ML 1 ML SYRINGE IVP PRN ×6 (01:08→21:52)
[2022-03-28] MEDS: LORazepam 1 MG TAB PO PRN ×4 (01:09→22:50)
[2022-03-28] MEDS: oxyCODONE-APAP 10-325MG 1 EACH TAB PO SCH ×4 (08:01→21:26)
[2022-03-28] MEDS: QUEtiapine 100 MG TAB PO SCH ×2 (09:41→21:27)
[2022-03-28] MEDS: PANTOPRAZOLE 40 MG TABLET PO SCH (09:41)
[2022-03-28] MEDS: DICYCLOMINE 20 MG TAB PO SCH ×4 (09:41→21:53)
[2022-03-28] MEDS: ASPIRIN 81 MG PO SCH (09:41)
[2022-03-28] MEDS: ENOXAPARIN 30 MG/0.3 ML SYRINGE SQ SCH (09:41)
[2022-03-28] MEDS: SENNOSIDES-DOCUSATE SODIUM 1 EACH TAB PO SCH ×2 (09:41→21:27)
[2022-03-28] MEDS: busPIRone HCl 10 MG TAB PO SCH ×2 (09:41→21:27)
--- NOTE | 2022-03-28 12:23 | P.PN ---
Subjective Progress Note Date: 03/28/22 CHIEF COMPLAINT: Abdominal pain HISTORY OF PRESENT ILLNESS: Patient's robotic sigmoid colectomy was aborted due to new metastatic pelvic peritoneal tumors of likely malignant potential ovarian/fallopian. She had diagnostic laparoscopy with peritoneal washings cell cytology for right ovarian cyst and peritoneal deposits. Pathology results are pending. Patient continues to complain of abdominal pain. She denies any nausea or vomiting. She is having flatus. She is tolerating diet. Afebrile. CEA elevated at 36.5 CA 125 elevated at 54.8 PHYSICAL EXAM: VITAL SIGNS: Reviewed GENERAL: Well-developed in no acute distress. HEENT: No sclera icterus. Extraocular movements grossly intact. Moist buccal mucosa. Head is atraumatic, normocephalic. Hears conversational speech. No nasal drainage. NECK: Supple without lymphadenopathy. CHEST: Non-labored respirations and equal bilateral excursions. CARDIOVASCULAR: Palpable 2+ radial pulses. ABDOMEN: Soft. Nondistended. Nontender. MUSCULOSKELETAL: No clubbing or cyanosis. NEUROLOGIC: No focal or lateralizing signs. Cranial nerves II through XII grossly intact. PSYCH: Appropriate affect. Alert and oriented to person, place and time. SKIN: Well perfused. Good skin turgor. ASSESSMENT: 1. 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 Chronic constipation 3. Chronic pain syndrome 4. Gastroesophageal reflux disease 5. Fibromyalgia 6. Depressive disorder 7. Anxiety disorder 8. Traumatic brain injury 9. Bipolar disorder 10. Obstructive sleep apnea 11. Hyperlipidemia 12. Glaucoma 13. Irritable bowel syndrome 14. Right ovarian cyst 15. Metastatic pelvic peritoneal tumor deposits 16. Abdominal ascites PLAN: -Await pathology results -Continue pain management -Continue supportive care -Await further oncology recommendations -Encouraged patient to increase activity Physician Bread Stacker note has been reviewed by physician. Signing provider agrees with the documented findings, assessment, and plan of care. Objective - Vital Signs Vital signs: Vital Signs Temp 97.7 F 03/28/22 07:00 Pulse 91 03/28/22 07:00 Resp 18 03/28/22 07:00 BP 120/62 03/28/22 07:00 Pulse Ox 97 03/28/22 07:00 FiO2 Intake & Output 03/27/22 03/28/22 03/28/22 18:59 06:59 18:59 Intake Total 1900 1460 Output Total 650 Balance 1900 810 Intake: Intake, IV Titration 1100 1200 Amount D5-0.45% NaCl with KCl 1100 1200 20Meq/l 1,000 ml @ 100 mls/hr IV .Q10H [facility] Rx#: [id number] Oral 800 260 Output: Urine 650 Other: Voiding Method Bedside Commode # Voids 3 # Bowel Movements 1 - Labs CBC & Chem 7: 03/26/22 08:13 03/26/22 08:13
[2022-03-28] MEDS ORDERED: IPRATROPIUM-ALBUTEROL 3 ML NEB INHALATION STA (20:50)
[2022-03-28] MEDS ORDERED: IPRATROPIUM-ALBUTEROL 3 ML NEB INHALATION PRN (20:50)
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
[2022-03-28] MEDS: DOCUSATE 100 MG CAP PO SCH (21:26)
[2022-03-28] MEDS: PHENAZOPYRIDINE 200 MG TAB PO SCH (21:26)
[2022-03-28] MEDS: MAGNESIUM OXIDE 400 MG TAB PO SCH (21:26)
[2022-03-28] MEDS: MELATONIN 5 MG TABLET PO SCH (21:26)
[2022-03-28] MEDS: MIRTAZAPINE 45 MG TABLET PO SCH (21:27)
[2022-03-28] MEDS: LATANOPROST 0.005% OPHTH DROPS 2.5 ML BTL BOTH EYES SCH (21:27)
[2022-03-28] MEDS: DULoxetine HCL 60 MG CAPSULE.DR PO SCH (21:27)
[2022-03-28] MEDS: NON FORMULARY DRUG (Linaclotide [Linzess] 290 MCG Capsule) PO SCH (21:28)
[2022-03-29] MEDS: HYDROmorphone 1 MG/ML 1 ML SYRINGE IVP PRN ×7 (00:30→23:27)
[2022-03-29] MEDS: PREGABALIN 25 MG CAP PO PRN (00:30)
[2022-03-29] MEDS: D5-0.45% NACL WITH KCL 20MEQ/L 1,000 ML IV SCH ×2 (03:58→12:55)
[2022-03-29] MEDS: LACTATED RINGERS 1,000 ML IV SCH (05:35)
[2022-03-29] MEDS: ASPIRIN 81 MG PO SCH (07:24)
[2022-03-29] MEDS: oxyCODONE-APAP 10-325MG 1 EACH TAB PO SCH ×4 (07:24→22:25)
[2022-03-29] MEDS: PANTOPRAZOLE 40 MG TABLET PO SCH (07:24)
[2022-03-29] MEDS: busPIRone HCl 10 MG TAB PO SCH ×2 (07:24→22:24)
[2022-03-29] MEDS: DICYCLOMINE 20 MG TAB PO SCH ×4 (07:24→22:24)
[2022-03-29] MEDS: SENNOSIDES-DOCUSATE SODIUM 1 EACH TAB PO SCH ×2 (07:24→22:24)
[2022-03-29] MEDS: ENOXAPARIN 30 MG/0.3 ML SYRINGE SQ SCH (07:25)
[2022-03-29] MEDS: PHENAZOPYRIDINE 200 MG TAB PO SCH ×2 (07:25→16:16)
[2022-03-29] MEDS: QUEtiapine 100 MG TAB PO SCH ×2 (07:26→22:25)
--- NOTE | 2022-03-29 13:54 | P.PN ---
Subjective Progress Note Date: 03/29/22 CHIEF COMPLAINT: Abdominal pain HISTORY OF PRESENT ILLNESS: Patient's robotic sigmoid colectomy was aborted due to new metastatic pelvic peritoneal tumors of likely malignant potential ovarian/fallopian. She had diagnostic laparoscopy with peritoneal washings cell cytology for right ovarian cyst and peritoneal deposits. Pathology results are pending. Patient continues to complain of abdominal pain. at bedside and reports that the pain medications appears to be helping. Patient had been s leeping comfortably. She denies any nausea or vomiting. She is having flatus. She is tolerating diet. Afebrile. CEA elevated at 36.5 CA 125 elevated at 54.8 PHYSICAL EXAM: VITAL SIGNS: Reviewed GENERAL: Well-developed in no acute distress. HEENT: No sclera icterus. Extraocular movements grossly intact. Moist buccal mucosa. Head is atraumatic, normocephalic. Hears conversational speech. No nasal drainage. NECK: Supple without lymphadenopathy. CHEST: Non-labored respirations and equal bilateral excursions. CARDIOVASCULAR: Palpable 2+ radial pulses. ABDOMEN: Soft. Nondistended. Nontender. MUSCULOSKELETAL: No clubbing or cyanosis. NEUROLOGIC: No focal or lateralizing signs. Cranial nerves II through XII grossly intact. PSYCH: Appropriate affect. Alert and oriented to person, place and time. SKIN: Well perfused. Good skin turgor. ASSESSMENT: 1. 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 Chronic constipation 3. Chronic pain syndrome 4. Gastroesophageal reflux disease 5. Fibromyalgia 6. Depressive disorder 7. Anxiety disorder 8. Traumatic brain injury 9. Bipolar disorder 10. Obstructive sleep apnea 11. Hyperlipidemia 12. Glaucoma 13. Irritable bowel syndrome 14. Right ovarian cyst 15. Metastatic pelvic peritoneal tumor deposits 16. Abdominal ascites PLAN: -Await pathology results -Continue pain management -Continue supportive care -Await further oncology recommendations -Encouraged patient to increase activity Physician [employer] note has been reviewed by physician. Signing provider agrees with the documented findings, assessment, and plan of care. CHIEF COMPLAINT: New peritoneal metastases HISTORY OF PRESENT ILLNESS: The patient is a 81-year-old female admission admitted to undergo sigmoid colectomy for recurrent diverticulitis. In traoperative findings demonstrated metastatic peritoneal deposits of the pelvis heavily involving the sigmoid colon including right fallopian tube. As a result, patient has persistent pelvic abdominal pain. Pathology has now returned metastatic disease from a colorectal origin. ROS: No reports of nausea and vomiting. No fevers or chills. No new chest pain. No productive sputum PHYSICAL EXAM: VITAL SIGNS: Reviewed CONSTITUTIONAL: Well developed and in no acute distress. EYES: Conjuctivae without sclera icterus. Extraocular movements grossly intact. HEAD, EARS, NOSE, THROAT: Moist buccal mucosa. Head is atraumatic, normocephalic. Hears conversational speech. No nasal drainage. RESPIRATORY: Non-labored respirations and equal bilateral excursions. CARDIOVASCULAR: Palpable 2+ radial pulses. ABDOMEN: Incisions clean dry and intact. No diffuse peritonitis. Tender left lower quadrant. MUSCULOSKELETAL: No gross deformity of the lower extremities noted. No clubbing. No cyanosis. SKIN: Good skin turgor. Well perfused. NEUROLOGIC: Cranial nerves II through XII grossly intact. No focal or lateralizing signs. PSYCH: Appropriate affect. Alert and oriented to person, place and time. CLINICAL LABS: Reviewed. Iron within normal limits. PATHOLOGY: Confirms metastatic adenocarcinoma of colorectal origin. ASSESSMENT: 1. Metastatic local regional adenocarcinoma, colorectal origin, new 2. Chronic left lower quadrant abdominal pain PLAN: 1. She had new diagnosis of metastatic local regional adenocarcinoma of the pelvis from colorectal origin, CT of the chest abdomen and pelvis with oral and IV contrast advised for metastatic workup. 2. Due to obstruction of sigmoid colon from disease, sigmoid colectomy reviewed as a therapeutic option while inpatient. 3. May need barium enema to further elucidate cecum due to moderately redundant colon 4. Neoadjuvant therapy also briefly discussed with additional recommendations pending from oncology for course of care. Objective - Vital Signs Vital signs: Vital Signs Temp 98.0 F 03/29/22 07:55 Pulse 110 H 03/29/22 07:55 Resp 18 03/29/22 07:55 BP 138/78 03/29/22 07:55 Pulse Ox 97 03/29/22 07:55 FiO2 Intake & Output 03/28/22 03/29/22 03/29/22 18:59 06:59 18:59 Intake Total 300 Balance 300 Intake: Intake, IV Titration 300 Amount D5-0.45% NaCl with KCl 300 20Meq/l 1,000 ml @ 100 mls/hr IV .Q10H [facility] Rx#: [id number] Other: Voiding Method Toilet Toilet Bedside Commode Bedside Commode # Voids 3 1 - Labs CBC & Chem 7: 03/26/22 08:13 03/26/22 08:13
[2022-03-29] MEDS: LORazepam 1 MG TAB PO PRN ×2 (17:04→21:56)
[2022-03-29] MEDS: IOPAMIDOL CONTRAST (ORAL USE) VIAL PO PRN ×2 (20:44→21:52)
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
[2022-03-29] MEDS: MELATONIN 5 MG TABLET PO SCH (22:24)
[2022-03-29] MEDS: DOCUSATE 100 MG CAP PO SCH (22:24)
[2022-03-29] MEDS: MAGNESIUM OXIDE 400 MG TAB PO SCH (22:25)
[2022-03-29] MEDS: DULoxetine HCL 60 MG CAPSULE.DR PO SCH (22:25)
[2022-03-29] MEDS: MIRTAZAPINE 45 MG TABLET PO SCH (22:25)
[2022-03-29] MEDS: NON FORMULARY DRUG (Linaclotide [Linzess] 290 MCG Capsule) PO SCH (22:26)
[2022-03-29] MEDS: LATANOPROST 0.005% OPHTH DROPS 2.5 ML BTL BOTH EYES SCH (22:26)
--- NOTE | 2022-03-30 01:07 | CT ---
EXAMINATION TYPE: CT ChestAbdPelvis w con DATE OF EXAM: 03/29/2022 COMPARISON: 02/18/2022 HISTORY: Metastatic colon ca CT DLP: 1545.9 mGycm Automated exposure control for dose reduction was used. CONTRAST: Performed with IV Contrast, patient injected with 100 mL of Isovue 300. Images obtained from the thoracic inlet to the floor the pelvis with IV contrast. There are some patchy atelectasis at the lung bases. Heart size is normal. No pericardial effusion. T here is no mediastinal adenopathy. Thoracic aorta is intact. There are no hilar masses. No thoracic a ortic aneurysm or dissection. There is pleural thickening at the right lung base. The spleen is intact. No sign of pancreatic mass. Gallbladder appears normal. The bile ducts are not dilated. There are multiple hypodense small foci throughout the liver. These are likely cysts and not changed compared to old exam. The stomach is intact. There is no adrenal mass. Kidneys show satisfac tory contrast opacification. There is no hydronephrosis. Delayed images show normal renal excretion. There is mild cortical thinning. No retroperitoneal adenopathy. The bladder distends smoothly. No ing uinal hernia. No free fluid in the pelvis. There is a 4 cm rounded cystic-appearing mass in the low p [place] on the right lateral wall. Unchanged. Fluid stable also compared to 06/08/2021. No evidence of a bowel obstruction. No ascites or free air. There is multilevel posterior laminectomy defect and fusion surgery. There is some retained fecal material in the large bowel. There is appare nt previous surgery at the sigmoid colon. IMPRESSION: Moderate constipation which is increased compared to old exam. Mild pleural thickening right posterio r lung base appears new compared to old exam. No suspicious pulmonary mass. There is some mild atelec tasis right lung base. This appears increased compared to the old exam. Multiple small cysts in the liver appear stable and no liver lesions seen to suggest metastatic disea se. Mild renal atrophy. No renal mass or obstruction. Stable pelvic cyst. There is clearing of some minimal fluid and stranding in the right paracolic gutt er region compared to old exam. No convincing evidence for metastatic disease.
[2022-03-30] MEDS: D5-0.45% NACL WITH KCL 20MEQ/L 1,000 ML IV SCH ×2 (02:19→11:05)
[2022-03-30] MEDS: HYDROmorphone 1 MG/ML 1 ML SYRINGE IVP PRN ×5 (04:03→20:18)
[2022-03-30] MEDS: LORazepam 1 MG TAB PO PRN ×3 (04:12→16:58)
[2022-03-30] MEDS: ASPIRIN 81 MG PO SCH (06:58)
[2022-03-30] MEDS: PANTOPRAZOLE 40 MG TABLET PO SCH (06:58)
[2022-03-30] MEDS: SENNOSIDES-DOCUSATE SODIUM 1 EACH TAB PO SCH ×2 (06:59→21:14)
[2022-03-30] MEDS: ENOXAPARIN 30 MG/0.3 ML SYRINGE SQ SCH (06:59)
[2022-03-30] MEDS: busPIRone HCl 10 MG TAB PO SCH ×2 (06:59→21:12)
[2022-03-30] MEDS: DICYCLOMINE 20 MG TAB PO SCH ×4 (06:59→21:13)
[2022-03-30] MEDS: QUEtiapine 100 MG TAB PO SCH ×2 (07:00→21:15)
[2022-03-30] MEDS: oxyCODONE-APAP 10-325MG 1 EACH TAB PO SCH ×4 (07:01→21:14)
[2022-03-30 09:04] LABS: Basophils # (A) 0.02 X 10*3/uL (0.00-0.10); Basophils % (A) 0.5 %; Eosinophils # (A) 0.09 X 10*3/uL (0.04-0.35); Eosinophils % (A) 2.1 %; HCT 29.9 % (37.2-46.3); HGB 9.1 g/dL (12.0-15.0); Immature Grans, Automated 0.5 %; Lymphocytes # (A) 1.28 X 10*3/uL (0.90-5.00); Lymphocytes % (A) 30.2 %; MCH 25.7 pg (27.0-32.0); MCHC 30.4 g/dL (32.0-37.0); MCV 84.5 fL (80.0-97.0); Mean Platelet Volume 10.3 fL (9.5-12.2); Monocytes % (A) 11.8 %; NRBC Per 100 WBC 0 /100 WBCS (0.0-0.0); Neutrophils # (A) 2.33 X 10*3/uL (1.80-7.70); Neutrophils % (A) 54.9 %; Platelet Count 251 X 10*3/uL (140-440); RBC 3.54 X 10*6/uL (4.10-5.20); RDW 15.9 % (11.5-14.5); WBC 4.24 X 10*3/uL (4.50-10.00)
[2022-03-30 10:04] LABS: African American GFR (CKD) 95.5 (60.0-200.0); Anion Gap 10.8 mmol/L (10.00-18.00); BUN/Creat Ratio 9.29 Ratio (12.00-20.00); Blood Urea Nitrogen 6.5 mg/dL (9.0-27.0); Calcium 8.8 mg/dL (8.7-10.3); Carbon Dioxide 23.2 mmol/L (20.0-27.5); Non-African American GFR(CKD) 82.4 (60.0-200.0); Potassium 5.1 mmol/L (3.5-5.5)
[2022-03-30] MEDS ORDERED: POLYETHYLENE GLYCOL LYTES SOLN 4,000 ML SOLN.RECON PO ONE (10:10)
--- NOTE | 2022-03-30 12:32 | P.PN ---
Subjective Progress Note Date: 03/30/22 CHIEF COMPLAINT: Abdominal pain HISTORY OF PRESENT ILLNESS: Patient's robotic sigmoid colectomy was aborted due to new metastatic pelvic peritoneal tumors of likely malignant potential ovarian/fallopian. She had diagnostic laparoscopy with peritoneal washings cell cytology for right ovarian cyst and peritoneal deposits. Pathology report shows metastatic adenocarcinoma consistent with colorectal primary. Patient sleeping comfortably. at bedside. Reports the patient states her pain is cont rolled but still complaining of abdominal pain. Denies any nausea or vomiting. She is eating some food. Afebrile. Heart rate 102 WBC is 4.24 Hgb 9.1 platelets 251 PHYSICAL EXAM: VITAL SIGNS: Reviewed GENERAL: Well-developed in no acute distress. HEENT: No sclera icterus. Extraocular movements grossly intact. Moist buccal mucosa. Head is atraumatic, normocephalic. Hears conversational speech. No nasal drainage. NECK: Supple without lymphadenopathy. CHEST: Non-labored respirations and equal bilateral excursions. CARDIOVASCULAR: Palpable 2+ radial pulses. ABDOMEN: Soft. Nondistended. Nontender. MUSCULOSKELETAL: No clubbing or cyanosis. NEUROLOGIC: No focal or lateralizing signs. Cranial nerves II through XII grossly intact. PSYCH: Appropriate affect. Alert and oriented to person, place and time. SKIN: Well perfused. Good skin turgor. ASSESSMENT: 1. Metastatic local regional adenocarcinoma, colorectal origin, new 2. Chronic left lower quadrant abdominal pain PLAN: -Patient is scheduled for robotic sigmoid colectomy 04/01/2022 -Start GoLYTELY bowel prep -Discussed case with oncology service and they recommend surgery prior to chemotherapy -Continue pain management -Continue supportive care -Await further oncology recommendations -Encouraged patient to increase activity Physician [employer] note has been reviewed by physician. Signing provider agrees with the documented findings, assessment, and plan of care. Place additional documentation CHIEF COMPLAINT: New peritoneal metastases HISTORY OF PRESENT ILLNESS: The patient is a 81-year-old female initially admitted for stricture due to diverticulitis. Intraoperative findings demonstr ated peritoneal metastases outside of the colon involving the pelvis and fallopian tube. Biopsies were obtained. They have now returned lower rectal origin. Oncology following. Patient is tolerating diet. Abdominal pain is stable. ROS: No reports of nausea and vomiting. No fevers or chills. No new chest pain. No productive sputum PHYSICAL EXAM: VITAL SIGNS: Reviewed CONSTITUTIONAL: Well developed and in no acute distress. EYES: Conjuctivae without sclera icterus. Extraocular movements grossly intact. HEAD, EARS, NOSE, THROAT: Moist buccal mucosa. Head is atraumatic, normocephalic . Hears conversational speech. No nasal drainage. RESPIRATORY: Non-labored respirations and equal bilateral excursions. CARDIOVASCULAR: Palpable 2+ radial pulses. ABDOMEN: No peritonitis. Incisions intact. Tender right upper quadrant MUSCULOSKELETAL: No gross deformity of the lower extremities noted. No clubbing. No cyanosis. SKIN: Good skin turgor. Well perfused. NEUROLOGIC: Cranial nerves II through XII grossly intact. No focal or lateralizing signs. PSYCH: Appropriate affect. Alert and oriented to person, place and time. CLINICAL LABS: Reviewed. Elevated tumor markers including CA-125 and alpha- fetoprotein PATHOLOGY: Confirms metastatic adenocarcinoma of colorectal origin. CYTOLOGY: No tumor cells identified within ascites. STUDIES: CT of the abdomen and pelvis in the independently reviewed without metastatic lesions identified within the liver. CT of the abdomen is port also confirms no metastatic processes to deliver adrenal glands. ASSESSMENT: 1. Metastatic local regional adenocarcinoma, colorectal origin, new 2. Chronic left lower quadrant abdominal pain 3. Diverticulosis with partial obstruction at anastomosis 4. Right upper quadrant tenderness, new PLAN: 1. Extended discussion performed with patient and at bedside including need for chemotherapy due to metastases found within the pelvis. Placement of Mediport described at the time of colectomy. 2. Due to partial obstruction unable to be dilated by endoscopic approach, we'll proceed with sigmoid colectomy where high tumor burden identified. Patient made aware that chemotherapy would be needed as negative margins unable to be obtained due to metastases within the pelvis. 3. She reports new right upper quadrant abdominal pain and we'll proceed with right upper quadrant ultrasound. 4. Extensive discussion performed with oncology including neoadjuvant therapy prior to surgical resection due to partial obstruction, proceeding with surgery was agreed upon with oncology 5. Care plan discussed with patient and at bedside including need for chemotherapy for optimal management. Objective - Vital Signs Vital signs: Vital Signs Temp 97.9 F 03/30/22 08:00 Pulse 102 H 03/30/22 08:00 Resp 18 03/30/22 08:00 BP 136/86 03/30/22 08:00 Pulse Ox 95 03/30/22 08:00 FiO2 21 03/29/22 20:28 Intake & Output 03/29/22 03/30/22 03/30/22 18:59 06:59 18:59 Intake Total 300 590 Balance 300 590 Intake: Intake, IV Titration 300 Amount D5-0.45% NaCl with KCl 300 20Meq/l 1,000 ml @ 100 mls/hr IV .Q10H [facility] Rx#: [id number] Oral 590 Other: Voiding Method Toilet Toilet Toilet Bedside Commode Bedside Commode Bedside Commode # Bowel Movements 1 - Labs CBC & Chem 7: 03/30/22 05:24 03/30/22 05:24 Labs: Abnormal Lab Results - Last 24 Hours (Table) 03/30/22 03/30/22 Range/Units 05:24 05:24 WBC 4.24 L (4.50-10.00) X 10*3/uL RBC 3.54 L (4.10-5.20) X 10*6/uL Hgb 9.1 L (12.0-15.0) g/dL Hct 29.9 L (37.2-46.3) % MCH 25.7 L (27.0-32.0) pg MCHC 30.4 L (32.0-37.0) g/dL RDW 15.9 H (11.5-14.5) % BUN 6.5 L (9.0-27.0) mg/dL BUN/Creatinine Ratio 9.29 L (12.00-20.00) Ratio Glucose 111 H (70-110) mg/dL
--- NOTE | 2022-03-30 17:51 | P.PN ---
Subjective Progress Note Date: 03/30/22 Principal diagnosis: diverticulitis, colon stricture Pt sleeping, at bedside Objective - Vital Signs Vital signs: Vital Signs Temp 97.9 F 03/30/22 08:00 Pulse 102 H 03/30/22 08:00 Resp 18 03/30/22 08:00 BP 136/86 03/30/22 08:00 Pulse Ox 95 03/30/22 08:00 FiO2 21 03/29/22 20:28 Intake & Output 03/29/22 03/30/22 03/30/22 18:59 06:59 18:59 Intake Total 300 590 700 Balance 300 590 700 Intake: Intake, IV Titration 300 700 Amount D5-0.45% NaCl with KCl 300 700 20Meq/l 1,000 ml @ 100 mls/hr IV .Q10H [facility] Rx#: [id number] Oral 590 Other: Voiding Method Toilet Toilet Toilet Bedside Commode Bedside Commode Bedside Commode # Bowel Movements 1 - Exam WD, overweight, NAD - Constitutional General appearance: Present: no acute distress, obese - Respiratory Details: resp even and unlabored - Musculoskeletal Musculoskeletal: Present: generalized weakness - Labs CBC & Chem 7: 03/30/22 05:24 03/30/22 05:24 Labs: Abnormal Lab Results - Last 24 Hours (Table) 03/30/22 03/30/22 Range/Units 05:24 05:24 WBC 4.24 L (4.50-10.00) X 10*3/uL RBC 3.54 L (4.10-5.20) X 10*6/uL Hgb 9.1 L (12.0-15.0) g/dL Hct 29.9 L (37.2-46.3) % MCH 25.7 L (27.0-32.0) pg MCHC 30.4 L (32.0-37.0) g/dL RDW 15.9 H (11.5-14.5) % BUN 6.5 L (9.0-27.0) mg/dL BUN/Creatinine Ratio 9.29 L (12.00-20.00) Ratio Glucose 111 H (70-110) mg/dL Assessment and Plan (1) Colon adenocarcinoma Current Visit: Yes Status: Acute Priority: High Code(s): C18.9 - MALIGNANT NEOPLASM OF COLON, UNSPECIFIED SNOMED Code(s): 223138729 (2) Abdominal pain Current Visit: Yes Status: Acute Priority: High Code(s): R10.9 - UNSPECIFIED ABDOMINAL PAIN SNOMED Code(s): 50506501 (3) Colon stricture Current Visit: Yes Status: Acute Code(s): K56.699 - OTHER INTESTNL OBST UNSP TO PARTIAL VERSUS COMPLETE OBST SNOMED Code(s): 4502704 Plan: Pathology returned unfortunately positive for colon adenocaracinoma. I went to room to discuss with pt and . Colon adenocarcinoma, stage IV disease. has asked me not to discuss cancer diagnosis with pt at this time-very concerned for her ability to mentally process the diagnosis. He wants Surgeon to discuss surgery 1st. I did speak to Surgery PA. Concern is stricture causing bowel obstruction. Surgery 1st is reasonable for prevention of obstruction. It would take at least 3-6 cycles (6-12 weeks) before chemo would likely be able to have enough of an effect on cancer and that is if cancer alone is causing the stricture. I informed surgery that pt DOES NOT know about the cancer diagnosis. I told the that I cannot withhold the results of her testing indefinitely. I will allow him until tomorrow to talk with her. Tomorrow, together we will discuss prognosis, treatment options and answer questions. Time with Patient: Greater than 30
[2022-03-30] MEDS: MAGNESIUM OXIDE 400 MG TAB PO SCH (21:13)
[2022-03-30] MEDS: MELATONIN 5 MG TABLET PO SCH (21:13)
[2022-03-30] MEDS: DULoxetine HCL 60 MG CAPSULE.DR PO SCH (21:14)
[2022-03-30] MEDS: DOCUSATE 100 MG CAP PO SCH (21:14)
[2022-03-30] MEDS: MIRTAZAPINE 45 MG TABLET PO SCH (21:15)
[2022-03-30] MEDS: LATANOPROST 0.005% OPHTH DROPS 2.5 ML BTL BOTH EYES SCH (21:16)
[2022-03-30] MEDS: NON FORMULARY DRUG (Linaclotide [Linzess] 290 MCG Capsule) PO SCH (21:23)
[2022-03-31] MEDS: D5-0.45% NACL WITH KCL 20MEQ/L 1,000 ML IV SCH ×3 (00:10→18:46)
[2022-03-31] MEDS: HYDROmorphone 1 MG/ML 1 ML SYRINGE IVP PRN ×8 (00:51→20:55)
[2022-03-31] MEDS: LORazepam 1 MG TAB PO PRN ×4 (00:56→18:53)
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
[2022-03-31] MEDS: QUEtiapine 100 MG TAB PO SCH ×2 (08:13→20:54)
[2022-03-31] MEDS: ENOXAPARIN 30 MG/0.3 ML SYRINGE SQ SCH (08:13)
[2022-03-31] MEDS: SENNOSIDES-DOCUSATE SODIUM 1 EACH TAB PO SCH ×2 (08:14→20:55)
[2022-03-31] MEDS: DICYCLOMINE 20 MG TAB PO SCH ×4 (08:14→22:06)
[2022-03-31] MEDS: ASPIRIN 81 MG PO SCH (08:14)
[2022-03-31] MEDS: oxyCODONE-APAP 10-325MG 1 EACH TAB PO SCH ×4 (08:14→22:06)
[2022-03-31] MEDS: busPIRone HCl 10 MG TAB PO SCH ×2 (08:15→20:55)
[2022-03-31] MEDS: PANTOPRAZOLE 40 MG TABLET PO SCH (08:15)
--- NOTE | 2022-03-31 09:14 | US ---
EXAMINATION TYPE: US gallbladder DATE OF EXAM: 03/31/2022 COMPARISON: CT dated 03/29/2022 CLINICAL HISTORY: Right upper quadrant pain. Abdomen pain Exam done portable EXAM MEASUREMENTS: Liver Length: 16.2 cm Gallbladder Wall: 0.2 cm CBD: 0.6 cm Right Kidney: 9.9 x 4.5 x 4.6 cm Pancreas: obscured by overlying midline bowel gas Liver: 1.4cm cyst right lobe Gallbladder: wnl Evidence for sonographic Alba's sign: no CBD: borderline dilated Right Kidney: wnl IMPRESSION: Technically difficult ultrasound. Right hepatic lobe cyst, multiple hepatic cysts were appreciated on the previous CT scan. Grossly unremarkable gallbladder.
[2022-03-31] MEDS: ONDANSETRON 4 MG/2 ML VIAL IVP PRN (09:16)
[2022-03-31 10:36] LABS: Basophils # (A) 0.02 X 10*3/uL (0.00-0.10); Basophils % (A) 0.4 %; Eosinophils # (A) 0.15 X 10*3/uL (0.04-0.35); Eosinophils % (A) 3.1 %; HCT 30.3 % (37.2-46.3); Immature Grans, Automated 0.4 %; Lymphocytes # (A) 1.27 X 10*3/uL (0.90-5.00); MCH 25.5 pg (27.0-32.0); MCHC 29.7 g/dL (32.0-37.0); MCV 85.8 fL (80.0-97.0); Mean Platelet Volume 10.7 fL (9.5-12.2); Monocytes # (A) 0.69 X 10*3/uL (0.20-1.00); Monocytes % (A) 14.1 %; NRBC Per 100 WBC 0 /100 WBCS (0.0-0.0); Neutrophils # (A) 2.73 X 10*3/uL (1.80-7.70); Platelet Count 244 X 10*3/uL (140-440); RBC 3.53 X 10*6/uL (4.10-5.20); RDW 15.9 % (11.5-14.5); WBC 4.88 X 10*3/uL (4.50-10.00)
[2022-03-31 10:49] LABS: ALT 11 U/L (8-44); AST 21 U/L (13-35); African American GFR (CKD) 95.5 (60.0-200.0); Albumin 3.5 g/dL (3.8-4.9); Alkaline Phosphatase 84 U/L (41-126); BUN/Creat Ratio 5.14 Ratio (12.00-20.00); Blood Urea Nitrogen 3.6 mg/dL (9.0-27.0); Calcium 8.8 mg/dL (8.7-10.3); Carbon Dioxide 24.4 mmol/L (20.0-27.5); Chloride 104 mmol/L (96-109); Globulin 2.7 g/dL (1.6-3.3); Glucose 114 mg/dL (70-110); Non-African American GFR(CKD) 82.4 (60.0-200.0); Potassium 4.4 mmol/L (3.5-5.5); Sodium 138 mmol/L (135-145); Total Bilirubin <0.15 mg/dL (0.30-1.20); Total Protein 6.2 g/dL (6.2-8.2)
--- NOTE | 2022-03-31 12:44 | P.PN ---
Subjective Progress Note Date: 03/31/22 CHIEF COMPLAINT: Abdominal pain HISTORY OF PRESENT ILLNESS: Patient's robotic sigmoid colectomy was aborted due to new metastatic pelvic peritoneal tumors of likely malignant potential ovarian/fallopian. She had diagnostic laparoscopy with peritoneal washings cell cytology for right ovarian cyst and peritoneal deposits. Pathology report shows metastatic adenocarcinoma consistent with colorectal primary. Patient sleeping comfortably. at bedside. Patient had been complaining of right upper quadrant abdominal pain. Abdominal ultrasound completed this morning and results showed a technically difficult ultrasound. Right hepatic lobe cyst, multiple hepatic cysts were appreciated on the previous computed tomography scan. Grossly unremarkable gallbladder. Patient tolerating clear liquids. She did finish the bowel prep for surgery. Afebrile. Heart rate 107 WBC 4.88 Hgb 9.0 platelets 244 sodium 138 potassium 4.4 creatinine 0.7. Patient followed closely by oncology PHYSICAL EXAM: VITAL SIGNS: Reviewed GENERAL: Well-developed in no acute distress. HEENT: No sclera icterus. Extraocular movements grossly intact. Moist buccal mucosa. Head is atraumatic, normocephalic. Hears conversational speech. No nasal drainage. NECK: Supple without lymphadenopathy. CHEST: Non-labored respirations and equal bilateral excursions. CARDIOVASCULAR: Palpable 2+ radial pulses. ABDOMEN: Soft. Nondistended. Incisions clean dry and intact MUSCULOSKELETAL: No clubbing or cyanosis. NEUROLOGIC: No focal or lateralizing signs. Cranial nerves II through XII grossly intact. PSYCH: Appropriate affect. Alert and oriented to person, place and time. SKIN: Well perfused. Good skin turgor. ASSESSMENT: 1. Metastatic local regional adenocarcinoma, colorectal origin, new 2. Chronic left lower quadrant abdominal pain 3. Diverticulosis with partial obstruction at anastomosis 4. Right upper quadrant tenderness and unremarkable gallbladder. Did reveal right hepatic lobe cyst and multiple hepatic cysts PLAN: -Patient is scheduled for robotic sigmoid colectomy 04/01/2022 with Mediport placement -Nothing by mouth after midnight -Continue pain management -Continue supportive care Physician Breastfeeding Peer Counselor note has been reviewed by physician. Signing provider agrees with the documented findings, assessment, and plan of care. CHIEF COMPLAINT: New peritoneal metastases HISTORY OF PRESENT ILLNESS: The patient is a 81-year-old female initially admitted for stricture due to diverticulitis. Intraoperative findings demonstrated peritoneal metastases outside of the colon involving the pelvis and fallopian tube. Biopsies were obtained with colorectal cancer. Patient and at bedside. Patient reports persistent left lower quadrant abdominal pain. She is tolerating her prep. Additional studies were obtained due to her her right upper quadrant abdominal pain. ROS: No reports of nausea and vomiting. No fevers or chills. No new chest pain. No productive sputum PHYSICAL EXAM: VITAL SIGNS: Reviewed CONSTITUTIONAL: Well developed and in no acute distress. EYES: Conjuctivae without sclera icterus. Extraocular movements grossly intact. HEAD, EARS, NOSE, THROAT: Moist buccal mucosa. Head is atraumatic, normocephalic. Hears conversational speech. No nasal drainage. RESPIRATORY: Non-labored respirations and equal bilateral excursions. CARDIOVASCULAR: Palpable 2+ radial pulses. ABDOMEN: No peritonitis. Incisions intact. Tender right upper quadrant MUSCULOSKELETAL: No gross deformity of the lower extremities noted. No clubbing. No cyanosis. SKIN: Good skin turgor. Well perfused. NEUROLOGIC: Cranial nerves II through XII grossly intact. No focal or lateralizing signs. PSYCH: Appropriate affect. Alert and oriented to person, place and time. CLINICAL LABS: Reviewed. WBC normal. STUDIES: Ultrasound of the gallbladder reviewed without gallstones or thickened gallbladder wall cholecystitis. This is my independent interpretation. ASSESSMENT: 1. Metastatic local regional adenocarcinoma 2. Chronic left lower quadrant abdominal pain 3. Diverticulosis with partial obstruction at anastomosis 4. Right upper quadrant tenderness PLAN: 1. All questions were addressed regarding proceeding with surgical plan of robotic sigmoid resection due to partial obstruction and moderate severe left lower quadrant abdominal pain. 2. Patient understands that surgery is not curative and will need ongoing chemotherapy to manage symptoms. As such, we'll proceed with Mediport placement intraoperative. 3. Patient has complex pain needs and pain management for surgical options deferred to anesthesiologist. 4. Care team also reviewed including hospitalist, oncologist, covering providers. Objective - Vital Signs Vital signs: Vital Signs Temp 99.4 F 03/31/22 08:00 Pulse 107 H 03/31/22 08:00 Resp 16 03/31/22 08:00 BP 149/68 03/31/22 08:00 Pulse Ox 96 03/31/22 08:00 FiO2 21 03/29/22 20:28 Intake & Output 03/30/22 03/31/22 03/31/22 18:59 06:59 18:59 Intake Total 700 1400 Balance 700 1400 Intake: Intake, IV Titration 700 800 Amount D5-0.45% NaCl with KCl 700 800 20Meq/l 1,000 ml @ 100 mls/hr IV .Q10H [facility] Rx#: [id number] Oral 600 Other: Voiding Method Toilet Toilet Toilet Bedside Commode Bedside Commode Bedside Commode # Voids 2 2 - Labs CBC & Chem 7: 03/31/22 06:46 03/31/22 06:46 Labs: Abnormal Lab Results - Last 24 Hours (Table) 03/31/22 03/31/22 Range/Units 06:46 06:46 RBC 3.53 L (4.10-5.20) X 10*6/uL Hgb 9.0 L (12.0-15.0) g/dL Hct 30.3 L (37.2-46.3) % MCH 25.5 L (27.0-32.0) pg MCHC 29.7 L (32.0-37.0) g/dL RDW 15.9 H (11.5-14.5) % Anion Gap 9.60 L (10.00-18.00) mmol/L BUN 3.6 L (9.0-27.0) mg/dL BUN/Creatinine Ratio 5.14 L (12.00-20.00) Ratio Glucose 114 H (70-110) mg/dL Total Bilirubin <0.15 L (0.30-1.20) mg/dL Albumin 3.5 L (3.8-4.9) g/dL Albumin/Globulin Ratio 1.30 L (1.60-3.17) g/dL
[2022-03-31] MEDS: metroNIDAZOLE 500 MG TAB PO SCH ×3 (14:11→23:38)
[2022-03-31] MEDS: NEOMYCIN 500 MG TAB PO SCH ×3 (14:13→23:38)
--- NOTE | 2022-03-31 16:56 | P.PN ---
Subjective Progress Note Date: 03/31/22 Principal diagnosis: diverticulitis, colon stricture, colon adenocarcinoma Spoke briefly with pt today, she is pleasant and smiling Objective - Vital Signs Vital signs: Vital Signs Temp 98.2 F 03/31/22 14:00 Pulse 101 H 03/31/22 14:00 Resp 14 03/31/22 14:00 BP 126/71 03/31/22 14:00 Pulse Ox 93 L 03/31/22 14:00 FiO2 21 03/29/22 20:28 Intake & Output 03/30/22 03/31/22 03/31/22 18:59 06:59 18:59 Intake Total 700 1400 Balance 700 1400 Intake: Intake, IV Titration 700 800 Amount D5-0.45% NaCl with KCl 700 800 20Meq/l 1,000 ml @ 100 mls/hr IV .Q10H [facility] Rx#: [id number] Oral 600 Other: Voiding Method Toilet Toilet Toilet Bedside Commode Bedside Commode Bedside Commode # Voids 2 2 - Exam WD, overweight, NAD, smiling, pleasant. Resp even and unlabored - Constitutional General appearance: Present: cooperative, no acute distress - EENT ENT: Present: hearing grossly normal - Respiratory Details: resp even and unlabored - Cardiovascular Details: skin warm and dry to touch - Neurologic Neurologic: Present: CNII-XII intact (grossly) - Musculoskeletal Musculoskeletal: Present: generalized weakness - Psychiatric Psychiatric: Present: A&O x's 3, appropriate affect - Labs CBC & Chem 7: 03/31/22 06:46 03/31/22 06:46 Labs: Abnormal Lab Results - Last 24 Hours (Table) 03/31/22 03/31/22 Range/Units 06:46 06:46 RBC 3.53 L (4.10-5.20) X 10*6/uL Hgb 9.0 L (12.0-15.0) g/dL Hct 30.3 L (37.2-46.3) % MCH 25.5 L (27.0-32.0) pg MCHC 29.7 L (32.0-37.0) g/dL RDW 15.9 H (11.5-14.5) % Anion Gap 9.60 L (10.00-18.00) mmol/L BUN 3.6 L (9.0-27.0) mg/dL BUN/Creatinine Ratio 5.14 L (12.00-20.00) Ratio Glucose 114 H (70-110) mg/dL Total Bilirubin <0.15 L (0.30-1.20) mg/dL Albumin 3.5 L (3.8-4.9) g/dL Albumin/Globulin Ratio 1.30 L (1.60-3.17) g/dL - Imaging and Cardiology CT scan - abdomen: report reviewed CT scan - chest: report reviewed CT scan - pelvis: report reviewed Assessment and Plan (1) Colon adenocarcinoma Current Visit: Yes Status: Acute Priority: High Code(s): C18.9 - MALIGNANT NEOPLASM OF COLON, UNSPECIFIED SNOMED Code(s): 973414595 (2) Abdominal pain Current Visit: Yes Status: Acute Priority: High Code(s): R10.9 - UNSPECIFIED ABDOMINAL PAIN SNOMED Code(s): 56198449 (3) Colon stricture Current Visit: Yes Status: Acute Code(s): K56.699 - OTHER INTESTNL OBST UNSP TO PARTIAL VERSUS COMPLETE OBST SNOMED Code(s): 5721060 Plan: Pathology returned unfortunately positive for colon adenocaracinoma. I went to room to discuss the pathology results with pt and again today. shook his head no and told his he was going to talk to me in the hallway. He does not want me to discuss the path yet as he wants her to focus on her surgery tomorrow without any other stress or distractions. He was not aggressive but, made certain that I did not enter pt room after we finished discussion. I returned later with Oncologist. When I knoeck on the door and entered he sprinted across the room and took my arm and folded it around his and walked both of us out of the room. I wanted him to meet the Oncologist instrumentation and controls designer this weekend so this was not some random new person showing up to talk with pt and him. He did not let us enter the room. At no time has the been aggressive or mean, he is very caring in his interactions with his . It is easy to see that she adores him. Just wanting to document what is going on and what information the pt has and does not have. Nursing reports similar experiences. Spoke to Liquor Blender who will let Risk Mgmt know what is going on. Attests: I have seen and examined pt, performed H&P, developed impression and plan of care. Discussed with dictator, agree with dictation, documented as a scribe Time with Patient: Greater than 30
[2022-03-31] MEDS ORDERED: POLYETHYLENE GLYCOL LYTES SOLN 4,000 ML SOLN.RECON PO ONE (17:53)
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
[2022-03-31] MEDS: MAGNESIUM OXIDE 400 MG TAB PO SCH (20:54)
[2022-03-31] MEDS: DULoxetine HCL 60 MG CAPSULE.DR PO SCH (20:54)
[2022-03-31] MEDS: DOCUSATE 100 MG CAP PO SCH (20:54)
[2022-03-31] MEDS: MIRTAZAPINE 45 MG TABLET PO SCH (20:54)
[2022-03-31] MEDS: MELATONIN 5 MG TABLET PO SCH (20:55)
[2022-03-31] MEDS: LATANOPROST 0.005% OPHTH DROPS 2.5 ML BTL BOTH EYES SCH (20:55)
[2022-03-31] MEDS: NON FORMULARY DRUG (Linaclotide [Linzess] 290 MCG Capsule) PO SCH (20:56)
[2022-04-01] MEDS: HYDROmorphone 1 MG/ML 1 ML SYRINGE IVP PRN ×4 (03:04→19:40)
[2022-04-01] MEDS: LORazepam 1 MG TAB PO PRN ×3 (03:11→20:42)
[2022-04-01] MEDS: D5-0.45% NACL WITH KCL 20MEQ/L 1,000 ML IV SCH ×2 (04:50→20:50)
[2022-04-01] MEDS ORDERED: metroNIDAZOLE-NS PMX 500 MG in SALINE 1 100ML.BAG IVPB PRN (05:00)
[2022-04-01] MEDS ORDERED: ACETAMINOPHEN TAB 500 MG TAB PO PRN (07:00)
[2022-04-01] MEDS ORDERED: ALVIMOPAN 12 MG CAPSULE PO PRN (07:00)
[2022-04-01] MEDS ORDERED: Antibiotics per Pharmacy 1 EACH MISC MISCELLANE PRN (08:00)
[2022-04-01] MEDS: PANTOPRAZOLE 40 MG TABLET PO SCH (08:01)
[2022-04-01] MEDS: busPIRone HCl 10 MG TAB PO SCH ×2 (08:02→20:42)
[2022-04-01] MEDS: oxyCODONE-APAP 10-325MG 1 EACH TAB PO SCH ×4 (08:03→22:43)
[2022-04-01] MEDS: SENNOSIDES-DOCUSATE SODIUM 1 EACH TAB PO SCH ×2 (08:03→20:42)
[2022-04-01] MEDS: QUEtiapine 100 MG TAB PO SCH ×2 (08:04→21:00)
[2022-04-01] MEDS: DICYCLOMINE 20 MG TAB PO SCH ×4 (08:04→22:00)
[2022-04-01] MEDS ORDERED: LACTATED RINGERS 1,000 ML IV ONE ×2 (10:15→12:06)
[2022-04-01] MEDS ORDERED: fentaNYL (PF) 50 MCG/ML 2 ML AMP IVP ONE (10:29)
[2022-04-01] MEDS ORDERED: MIDAZOLAM 2 MG/2 ML VIAL IVP ONE (10:29)
[2022-04-01] MEDS: ASPIRIN 81 MG PO SCH (10:41)
[2022-04-01] MEDS: ENOXAPARIN 30 MG/0.3 ML SYRINGE SQ SCH (10:43)
[2022-04-01] MEDS ORDERED: ONDANSETRON 4 MG/2 ML VIAL IVP ONE (10:52)
--- NOTE | 2022-04-01 11:03 | P.ANPRN ---
Procedure Note - Anesthesia - Nerve Block Performed Bilateral Erector Spinae Single Time Out Performed: Yes ([id number]) Date of Procedure: 04/01/22 Procedure Start Time: : Procedure Stop Time: 10:34 Location of Patient: PreOp Indication: Acute Post-Operative Pain, Requested by Surgeon Specifically requested for management of pain by : Ambreen Cm Sedation Type: Sedate with meaningful contact maintained Preparation: Sterile Prep Position: Prone Catheter: None Needle Types: Pajunk Needle Gauge: 21 Ultrasound used to visualize needle placement: Yes Ultrasound used to observe medication spread: Yes Injectate: 0.5% Ropivacaine (see comment for volume) (15cc + 10cc nacl pf each side) Blood Aspirated: No Pain Paresthesia on Injection Noted: No Resistance on Injection: Normal Image Stored and Saved: Yes Events: Uneventful and Well Tolerated
[2022-04-01] MEDS ORDERED: HEPARIN SODIUM,PORCINE/PF 5,000 UNIT/0.5 ML SYRINGE SQ ONE (11:09)
[2022-04-01] MEDS ORDERED: HEPARIN SODIUM,PORCINE 5,000 UNIT/ML 1 ML VIAL SQ ONE (11:14)
[2022-04-01] MEDS ORDERED: BUPIVACAIN-EPI 0.25%-1:200,000 30 ML VIAL SQ ONE (12:52)
[2022-04-01] MEDS ORDERED: HEPARIN SODIUM,PORCINE 100 UNIT/ML 5 ML VIAL IV ONE (13:08)
[2022-04-01] MEDS ORDERED: HEPARIN SODIUM,PORCINE 10,000 UNIT/ML 1 ML VIAL IV ONE (13:08)
--- NOTE | 2022-04-01 13:29 | P.PCN ---
Date of Procedure: 04/01/22 Description of Procedure: SURGEON: BASIM PARDO MD MINE UTILITY OPERATOR: None. PREOPERATIVE DIAGNOSES: 1. Colon cancer 2. Need for chemotherapeutic access. 3. Chronic pain syndrome 4. Gastroesophageal reflux disease 5. Fibromyalgia 6. Depressive disorder 7. Anxiety disorder 8. Traumatic brain injury 9. Bipolar disorder 10. Obstructive sleep apnea 11. Hyperlipidemia 12. Glaucoma 13. Irritable bowel syndrome 14. Partial large bowel obstruction due to sigmoid stricture/colon cancer 15. Chronic constipation POSTOPERATIVE DIAGNOSES: 1. Colon cancer 2. Need for chemotherapeutic access. 3. Chronic pain syndrome 4. Gastroesophageal reflux disease 5. Fibromyalgia 6. Depressive disorder 7. Anxiety disorder 8. Traumatic brain injury 9. Bipolar disorder 10. Obstructive sleep apnea 11. Hyperlipidemia 12. Glaucoma 13. Irritable bowel syndrome 14. Partial large bowel obstruction due to sigmoid stricture/colon cancer 15. Chronic constipation PROCEDURES PERFORMED: 1. Ultrasound guided central venous access of the right internal jugular venous vein. 2. Fluoroscopic guidance for central venous access right internal jugular vein less than 1 seconds (during procedure) 3. Placement of right internal jugular power port 6 Palestinian by Coverity, Xcela Plus Port ANESTHESIA: GETA with local. ESTIMATED BLOOD LOSS: 5 mL. SPECIMENS REMOVED: None. COMPLICATIONS: None. FINDINGS: 1. No thrombus encountered along the right carotid artery or internal jugular vein. 2. Access of the right internal jugular vein under ultrasound guidance. 3. Fluoroscopy of less than 1 seconds during procedure. INDICATIONS: The patient is a 81-year-old female recently diagnosed with new colon cancer with localized spread of the pelvis. Chemotherapeutic treatment advised with venous access. Benefits and risks of surgical intervention were described including bleeding, infection, mechanical problems with his port. Informed consent was obtained. DESCRIPTION OR PROCEDURE: Patient was brought into the operating room, laid in supine position. After general anesthetic, the chest and right neck were prepped and draped in a standard sterile fashion including the shoulder with ChloraPrep. Timeout protocol was confirmed with the surgical team regarding the patient's name, procedure to be performed including preoperative medications for which she received IV antibiotics. Bilateral SCDs were placed. An ultrasound was used to capture views of the right internal jugular vein including right carotid artery, which was patent and without thrombus along its course. The right IJ was then localized using anesthetic for the skin. A 16 Palestinian needle was used to access the IJ. A guidewire was advanced into the IJ with dark nonpulsatile venous blood. Two fingerbreadths distal to the clavicle, on the lateral third, a transverse 2 cm incision was deepened into the skin after localizing the skin. A pocket was created for the port. The port on the back table was flushed with heparinized saline and then attached to the catheter tubing. An adapter was fastened to the actual port site over the tubing. The port easily had fit snug into the pocket. A subcutaneous tunneler was placed along the open end of the tubing and brought out through the separate stab incision. Fluoroscopic guidance confirmed no kinking along the tubing and the port site. Next, the J-wire was exchanged for a catheter sheath for which the tubing was cut to 25 cm and then advanced through the catheter sheath. The Peel-away sheath was then removed and the tubing was secured at the junction of the superior vena cava as well as the right atrium. The tubing was found to be crossed however functional. This was all done under fluoroscopic guidance under 1 second. Easy pullback as well as return and aspiration was obtained of the port site. The skin incision was closed using layers using 3-0 Vicryl for the subcu followed by 4-0 Monocryl in a running subcuticular fashion. At the stick site this was also reapproximated using 4-0 Monocryl. The incisions were covered with Optifoam, The skin was cleansed and Exofin liquid glue was applied. Optifoam dressing was placed over the port site. A total of 20 mL of local anesthetic was placed. At the end of the procedure, needle, sponge, and instrument count was verified correct by surgical services manager. Heparin lock of 5 mL was placed. The patient was redraped for therapeutic resection, sigmoid colectomy. Please see separate operative report.
[2022-04-01] MEDS ORDERED: LABETALOL 5 MG/ML VIAL MDV IVP ONE (18:22)
--- NOTE | 2022-04-01 18:44 | P.OP ---
Date of Procedure: 04/01/22 Description of Procedure: SURGEON: BASIM PARDO MD PREOPERATIVE DIAGNOSES: 1. Partial large bowel obstruction, sigmoid colon POSTOPERATIVE DIAGNOSES: 1. Partial large bowel obstruction, sigmoid colon OPERATION: 1. Robotic-assisted daVinci Xi laparoscopic sigmoid colectomy with low anterior resection using 29 mm EEA Ethicon powered stapler 2. Intraoperative flexible sigmoidoscopy using colonoscope Anesthesia: GETA, local ESTIMATED BLOOD LOSS: 5 mL SPECIMENS REMOVED: Sigmoid colon COMPLICATIONS: None. Pathology: other (Sigmoid colectomy) Condition: stable Disposition: floor FINDINGS: 1. Low anterior resection with 29 mm EEA powered stapler 2. Separate tumor deposits along the transverse mesocolon 3 x 5 cm 3. Tumor deposits involving the right ovary, left ovary uninvolved 4. Stricture completely resected with low anterior resection INDICATIONS: The patient is a 81-year-old female with chronic abdominal pain due to recurrent intermittent bowel obstruction due to sigmoid volvulus. Surgical resection with colectomy described. Benefits and risks, including infection, bowel injury, ureteral injury, colostomy creation and possibility for additional surgery was discussed at length. Informed consent was obtained. All questions of the patient and family were answered. DESCRIPTION: Earlier the patient had undergone a bowel prep using the enhanced colon recovery program. The patient was transferred to the operating room and placed supine. A Ta catheter was placed. The perineum was prepped and draped in the standard sterile fashion. The abdomen was then prepped and draped in standard sterile fashion as Ioban was placed along the abdomen to minimize any contamination of skin floor. After a timeout protocol was performed, attention was then brought to the left upper quadrant whereby a 0 degree 5 mm laparoscopic trocar entry was performed. The abdominal cavity was entered and insufflated to 15 mmHg pressure, which was tolerated well. Next a robotic 8-mm trocar was placed along the epigastrium 20 cm superior from the pelvis. A 12 mm port was placed along the right lateral upper quadrant. Ports were placed 10 cm apart from each other including 15-20 cm away from the target anatomy of the left pelvis. The 5-mm port was exchanged for an 8 mm robotic port. A 12 mm was placed along the left lateral abdominal wall. The 8- mm port was arranged along the left upper abdominal wall. The patient was then placed in Trendelenburg position, at least 21. The robotic da Kierra XI system was primed. The robot was docked from the right side of the patient. Using atraumatic graspers and vessel sealer, the robotic system was docked and primed as described. Instruments were interchanged by the housekeeper and laundry assistant including scissors, needle drop hammer pile driver operator, robotic stapler and vessel sealer. The robot stapler was prepared along the right lateral abdominal wall. Next, attention was brought to identify the sigmoid colon. The descending colon and sigmoid colon was mobilized along the white line of Toldt towards the pelvis. A stay suture using 3-0 silk was placed along the anterior serosa of the descending colon. The sigmoid mesentery was mobilized using a vessel sealer whereby the distal sigmoid colon was marked and tagged. Using fires of the robot stapler 60 mm green loads, the distal sigmoid colon was divided. Mobilization of the colon was performed to the pelvic brim along the sacral promontory. The mesentery of the sigmoid colon was mobilized towards the descending colon using a vessel sealer. The rest of the sigmoid colon mesentery was mobilized using vessel sealer. Additionally, the sigmoid colon was mobilized onto the colon to minimize injury to the ureters. Adhesions within the pelvis were dressed using vessel sealer. An intraoperative sigmoid colonoscopy was performed to decompress the area of the sigmoid volvulus including identifying sizers allowable up to 31 mm. Once confirmed I went back to the console. The colon was resected along the proximal rectum using green 60 mm loads. Next, I went back to the patient bedside where a 29 mm anvil was entered via the left upper quadrant 12 mm trocar site. A distal descending colotomy was made at the staple line for the anvil. The colotomy was closed using 60 mm green loads. The anvil was projected through the staple line and prepared for connection. A powered 29 mm EEA Ethicon stapler was entered via the rectum. The anvil was mated with the stapler for 1 minute. Both donuts were complete on both sides. I went to the foot of the bed to perform a sigmoidoscopy. A flexible colonoscope was inserted along the rectum and advanced to the anastomosis and proximally. No evidence of leaks were identified after normal saline solution over the anastomosis. The anastomosis was completely hemostatic. All irrigation fluid was removed. All needles were removed from the abdominal cavity. The robot was undocked. Via the left upper quadrant stapler site, the resected colon was brought out through incision. The fascial defect was oversewn using 0 Vicryl and a Ismael Olmos. Next all pneumoperitoneum including instruments were evacuated from the abdominal cavity. All incisions were copiously irrigated using dilute normal saline and hydrogen peroxide mixture. The trocar sites were reapproximated using 4-0 Monocryl in an interrupted subcuticular fashion. Local anesthetic was infiltrated to all wounds for postop analgesia. An Optifoam surgical dressing was placed over the colon extraction site. Exofin skin glue was applied to the rest of the skin incisions. The patient was extubated successfully. The patient was transferred to the postanesthesia care unit in stable condition. Patient's daughter Swetha called over the telephone with updates on her mother's care.
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
--- NOTE | 2022-04-01 20:20 | XR ---
EXAMINATION TYPE: XR chest 1V confirm line plcmt DATE OF EXAM: 04/01/2022 7:37 PM COMPARISON: Chest radiograph 09/02/2021 TECHNIQUE: XR chest 1V confirm line plcmt Portable AP radiograph of the chest.. CLINICAL INDICATION:Female, 81 years old with history of Mediport placement; FINDINGS: Lungs/Pleura: There is no evidence of pleural effusion, focal consolidation, or pneumothorax. Pulmonary vascularity: Unremarkable. Heart/mediastinum: Cardiomediastinal silhouette is enlarged and stable. Musculoskeletal: No acute osseous pathology. Left shoulder arthroplasty changes. Lines/Tubes: Right central venous catheter with distal tip projecting over the right atrium. IMPRESSION: Right central venous catheter distal tip projecting over the right atrium in appropriate position. No evidence of pneumothorax.
[2022-04-01] MEDS: MELATONIN 5 MG TABLET PO SCH (20:42)
[2022-04-01] MEDS: MAGNESIUM OXIDE 400 MG TAB PO SCH (20:42)
[2022-04-01] MEDS: DULoxetine HCL 60 MG CAPSULE.DR PO SCH (20:43)
[2022-04-01] MEDS: DOCUSATE 100 MG CAP PO SCH (20:43)
[2022-04-01] MEDS: metroNIDAZOLE-NS PMX 500 MG in SALINE 1 100ML.BAG IVPB SCH (20:50)
[2022-04-01] MEDS: LATANOPROST 0.005% OPHTH DROPS 2.5 ML BTL BOTH EYES SCH (21:00)
[2022-04-01] MEDS: MIRTAZAPINE 45 MG TABLET PO SCH (21:00)
[2022-04-01] MEDS: HYDROmorphone PCA 10 MG/50 ML BAG IV PRN (21:34)
[2022-04-01] MEDS: SIMETHICONE 40 MG/0.6 ML DROPS 2,000 MG/30 ML BOTTLE PO SCH (22:43)
[2022-04-01] MEDS: NON FORMULARY DRUG (Linaclotide [Linzess] 290 MCG Capsule) PO SCH (22:43)
[2022-04-02] MEDS: ACETAMINOPHEN IV (For NPO) 1,000 MG in EMPTY BAG 1 BAG IVPB SCH ×4 (01:00→17:14)
[2022-04-02] MEDS: D5-0.45% NACL WITH KCL 20MEQ/L 1,000 ML IV SCH ×3 (02:40→20:52)
[2022-04-02] MEDS: metroNIDAZOLE-NS PMX 500 MG in SALINE 1 100ML.BAG IVPB SCH ×4 (02:57→20:45)
[2022-04-02] MEDS: HYDROmorphone PCA 10 MG/50 ML BAG IV PRN ×2 (07:06→15:40)
[2022-04-02] MEDS: busPIRone HCl 10 MG TAB PO SCH ×2 (07:38→19:51)
[2022-04-02] MEDS: DICYCLOMINE 20 MG TAB PO SCH ×4 (07:38→19:51)
[2022-04-02] MEDS: ALVIMOPAN 12 MG CAPSULE PO SCH ×2 (07:38→19:51)
[2022-04-02] MEDS: PANTOPRAZOLE 40 MG TABLET PO SCH (07:38)
[2022-04-02] MEDS: ASPIRIN 81 MG PO SCH (07:38)
[2022-04-02] MEDS: SENNOSIDES-DOCUSATE SODIUM 1 EACH TAB PO SCH ×2 (07:39→21:00)
[2022-04-02] MEDS: QUEtiapine 100 MG TAB PO SCH ×2 (07:40→19:51)
[2022-04-02] MEDS: ENOXAPARIN 30 MG/0.3 ML SYRINGE SQ SCH (07:40)
[2022-04-02] MEDS: ONDANSETRON 4 MG/2 ML VIAL IVP PRN (07:53)
[2022-04-02] MEDS: SIMETHICONE 40 MG/0.6 ML DROPS 2,000 MG/30 ML BOTTLE PO SCH ×4 (08:12→21:00)
[2022-04-02] MEDS: oxyCODONE-APAP 10-325MG 1 EACH TAB PO SCH ×4 (09:46→22:09)
[2022-04-02] MEDS: LORazepam 1 MG TAB PO PRN ×3 (10:15→19:51)
[2022-04-02 11:35] LABS: Basophils # (A) 0.01 X 10*3/uL (0.00-0.10); Basophils % (A) 0.1 %; Eosinophils # (A) 0.01 X 10*3/uL (0.04-0.35); Eosinophils % (A) 0.1 %; HCT 29.6 % (37.2-46.3); HGB 9.3 g/dL (12.0-15.0); Immature Grans, Automated 0.1 %; Lymphocytes # (A) 1.36 X 10*3/uL (0.90-5.00); Lymphocytes % (A) 16.5 %; MCH 25.5 pg (27.0-32.0); MCHC 31.4 g/dL (32.0-37.0); MCV 81.3 fL (80.0-97.0); Mean Platelet Volume 10.1 fL (9.5-12.2); Monocytes # (A) 0.83 X 10*3/uL (0.20-1.00); Monocytes % (A) 10.1 %; NRBC Per 100 WBC 0 /100 WBCS (0.0-0.0); Neutrophils % (A) 73.1 %; Platelet Count 255 X 10*3/uL (140-440); RBC 3.64 X 10*6/uL (4.10-5.20); WBC 8.22 X 10*3/uL (4.50-10.00)
[2022-04-02 11:45] LABS: African American GFR (CKD) 100.5 (60.0-200.0); Anion Gap 11.7 mmol/L (10.00-18.00); BUN/Creat Ratio 6.67 Ratio (12.00-20.00); Calcium 8.3 mg/dL (8.7-10.3); Carbon Dioxide 23.3 mmol/L (20.0-27.5); Non-African American GFR(CKD) 86.7 (60.0-200.0); Potassium 4.3 mmol/L (3.5-5.5)
--- NOTE | 2022-04-02 11:45 | P.PN ---
Progress Note - Text Progress Note Date: 04/02/22 Patient resting comfortably bed. She has complaints of some incisional pain. On exam vital signs are stable. Abdomen is soft. Incision sites are clean and intact. Status post colectomy for colon cancer patient will continue receive supportive care.
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
[2022-04-02] MEDS: DULoxetine HCL 60 MG CAPSULE.DR PO SCH (19:51)
[2022-04-02] MEDS: MIRTAZAPINE 45 MG TABLET PO SCH (19:52)
[2022-04-02] MEDS: PREGABALIN 25 MG CAP PO PRN (19:52)
[2022-04-02] MEDS: DOCUSATE 100 MG CAP PO SCH (19:52)
[2022-04-02] MEDS: LATANOPROST 0.005% OPHTH DROPS 2.5 ML BTL BOTH EYES SCH (20:52)
[2022-04-02] MEDS: NON FORMULARY DRUG (Linaclotide [Linzess] 290 MCG Capsule) PO SCH (20:53)
[2022-04-02] MEDS: MELATONIN 5 MG TABLET PO SCH (22:07)
[2022-04-02] MEDS: MAGNESIUM OXIDE 400 MG TAB PO SCH (22:07)
[2022-04-03] MEDS: LORazepam 1 MG TAB PO PRN ×5 (01:27→21:19)
[2022-04-03] MEDS: metroNIDAZOLE-NS PMX 500 MG in SALINE 1 100ML.BAG IVPB SCH ×4 (02:30→20:02)
[2022-04-03] MEDS: ALVIMOPAN 12 MG CAPSULE PO SCH ×2 (07:53→21:19)
[2022-04-03] MEDS: SENNOSIDES-DOCUSATE SODIUM 1 EACH TAB PO SCH ×2 (07:53→21:19)
[2022-04-03] MEDS: ASPIRIN 81 MG PO SCH (07:53)
[2022-04-03] MEDS: DICYCLOMINE 20 MG TAB PO SCH ×4 (07:53→21:19)
[2022-04-03] MEDS: oxyCODONE-APAP 10-325MG 1 EACH TAB PO SCH ×4 (07:54→21:19)
[2022-04-03] MEDS: PANTOPRAZOLE 40 MG TABLET PO SCH (07:54)
[2022-04-03] MEDS: busPIRone HCl 10 MG TAB PO SCH ×2 (07:54→21:19)
[2022-04-03] MEDS: ENOXAPARIN 30 MG/0.3 ML SYRINGE SQ SCH (07:55)
[2022-04-03] MEDS: SIMETHICONE 40 MG/0.6 ML DROPS 2,000 MG/30 ML BOTTLE PO SCH ×4 (07:55→21:21)
[2022-04-03] MEDS: QUEtiapine 100 MG TAB PO SCH ×2 (07:59→21:35)
[2022-04-03] MEDS: D5-0.45% NACL WITH KCL 20MEQ/L 1,000 ML IV SCH ×2 (09:45→17:02)
--- NOTE | 2022-04-03 10:04 | FL ---
Intraoperative fluoroscopic services were provided for right Port-A-Cath insertion Total fluoroscopy time is 1 second with a total of 1 submitted images to PACS. Please see the operative note for furthe r details.
--- NOTE | 2022-04-03 10:16 | P.PN ---
Progress Note - Text Progress Note Date: 04/03/22 The patient is resting comfortably in bed. She's had no significant bowel function. On exam vital signs are stable. Abdomen soft. Incision sites clean and intact. Status post low anterior resection. Patient continue supportive care.
[2022-04-03] MEDS: HYDROmorphone PCA 10 MG/50 ML BAG IV PRN (10:49)
[2022-04-03 11:37] LABS: HCT 27.7 % (34.0-46.0); HGB 8.9 gm/dL (11.4-16.0); Hypochromasia Slight; MCH 27.1 pg (25.0-35.0); MCV 84.7 fL (80.0-100.0); Mean Platelet Volume 7.3; Platelet Count 209 k/uL (150-450); RBC 3.27 m/uL (3.80-5.40); RDW 14.8 % (11.5-15.5); WBC 6.1 k/uL (3.8-10.6)
[2022-04-03 11:41] LABS: African American GFR (CKD) >90 (>60 ml/min/1.73 sqM); Anion Gap 5 mmol/L; Blood Urea Nitrogen 2 mg/dL (7-17); Calcium 8.1 mg/dL (8.4-10.2); Carbon Dioxide 24 mmol/L (22-30); Chloride 105 mmol/L (98-107); Glucose 117 mg/dL (74-99); Non-African American GFR(CKD) 89 (>60 ml/min/1.73 sqM); Potassium 3.9 mmol/L (3.5-5.1); Sodium 134 mmol/L (137-145)
[2022-04-03] MEDS: MELATONIN 5 MG TABLET PO SCH (21:19)
[2022-04-03] MEDS: MAGNESIUM OXIDE 400 MG TAB PO SCH (21:19)
[2022-04-03] MEDS: LATANOPROST 0.005% OPHTH DROPS 2.5 ML BTL BOTH EYES SCH (21:19)
[2022-04-03] MEDS: DOCUSATE 100 MG CAP PO SCH (21:19)
[2022-04-03] MEDS: DULoxetine HCL 60 MG CAPSULE.DR PO SCH (21:19)
[2022-04-03] MEDS: NON FORMULARY DRUG (Linaclotide [Linzess] 290 MCG Capsule) PO SCH (21:20)
[2022-04-03] MEDS: MIRTAZAPINE 45 MG TABLET PO SCH (21:35)
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
[2022-04-04] MEDS: D5-0.45% NACL WITH KCL 20MEQ/L 1,000 ML IV SCH ×3 (01:30→22:13)
[2022-04-04] MEDS: metroNIDAZOLE-NS PMX 500 MG in SALINE 1 100ML.BAG IVPB SCH ×4 (01:45→20:44)
[2022-04-04] MEDS: LORazepam 1 MG TAB PO PRN ×3 (05:04→22:18)
[2022-04-04] MEDS: HYDROmorphone PCA 10 MG/50 ML BAG IV PRN ×3 (06:54→20:16)
[2022-04-04] MEDS: ASPIRIN 81 MG PO SCH (07:22)
[2022-04-04] MEDS: PANTOPRAZOLE 40 MG TABLET PO SCH (07:23)
[2022-04-04] MEDS: DICYCLOMINE 20 MG TAB PO SCH ×4 (07:23→22:18)
[2022-04-04] MEDS: oxyCODONE-APAP 10-325MG 1 EACH TAB PO SCH ×4 (07:23→22:18)
[2022-04-04] MEDS: busPIRone HCl 10 MG TAB PO SCH ×2 (07:23→20:45)
[2022-04-04] MEDS: SENNOSIDES-DOCUSATE SODIUM 1 EACH TAB PO SCH ×2 (07:23→20:46)
[2022-04-04] MEDS: ENOXAPARIN 30 MG/0.3 ML SYRINGE SQ SCH (07:24)
[2022-04-04] MEDS: QUEtiapine 100 MG TAB PO SCH ×2 (07:24→20:45)
[2022-04-04] MEDS: ALVIMOPAN 12 MG CAPSULE PO SCH ×2 (11:54→20:45)
[2022-04-04] MEDS: SIMETHICONE 40 MG/0.6 ML DROPS 2,000 MG/30 ML BOTTLE PO SCH ×4 (13:06→20:46)
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
[2022-04-04] MEDS: DULoxetine HCL 60 MG CAPSULE.DR PO SCH (20:45)
[2022-04-04] MEDS: MELATONIN 5 MG TABLET PO SCH (20:45)
[2022-04-04] MEDS: MIRTAZAPINE 45 MG TABLET PO SCH (20:46)
[2022-04-04] MEDS: LATANOPROST 0.005% OPHTH DROPS 2.5 ML BTL BOTH EYES SCH (20:47)
[2022-04-04] MEDS: MAGNESIUM OXIDE 400 MG TAB PO SCH (20:47)
[2022-04-04] MEDS: NON FORMULARY DRUG (Linaclotide [Linzess] 290 MCG Capsule) PO SCH (20:47)
[2022-04-04] MEDS: DOCUSATE 100 MG CAP PO SCH (20:47)
[2022-04-05] MEDS: metroNIDAZOLE-NS PMX 500 MG in SALINE 1 100ML.BAG IVPB SCH ×3 (02:38→13:20)
[2022-04-05] MEDS: LORazepam 1 MG TAB PO PRN ×3 (02:39→14:59)
[2022-04-05] MEDS: PANTOPRAZOLE 40 MG TABLET PO SCH (09:22)
[2022-04-05] MEDS: oxyCODONE-APAP 10-325MG 1 EACH TAB PO SCH ×2 (09:22→13:20)
[2022-04-05] MEDS: busPIRone HCl 10 MG TAB PO SCH (09:22)
[2022-04-05] MEDS: ASPIRIN 81 MG PO SCH (09:23)
[2022-04-05] MEDS: ALVIMOPAN 12 MG CAPSULE PO SCH (09:23)
[2022-04-05] MEDS: DICYCLOMINE 20 MG TAB PO SCH ×2 (09:23→13:20)
[2022-04-05] MEDS: D5-0.45% NACL WITH KCL 20MEQ/L 1,000 ML IV SCH (09:23)
[2022-04-05] MEDS: QUEtiapine 100 MG TAB PO SCH (09:23)
[2022-04-05] MEDS: SENNOSIDES-DOCUSATE SODIUM 1 EACH TAB PO SCH (09:23)
[2022-04-05] MEDS: ENOXAPARIN 30 MG/0.3 ML SYRINGE SQ SCH (09:24)
[2022-04-05] MEDS: SIMETHICONE 40 MG/0.6 ML DROPS 2,000 MG/30 ML BOTTLE PO SCH ×2 (09:24→13:20)
--- NOTE | 2022-04-05 11:30 | P.PN ---
Subjective Progress Note Date: 04/05/22 CHIEF COMPLAINT: Colorectal cancer HISTORY OF PRESENT ILLNESS: The patient is a 81-year-old female initially admitted for stricture due to diverticulitis. Intraoperative findings demonstrated peritoneal metastases outside of the colon involving the pelvis and fallopian tube. Biopsies were obtained and returned colorectal cancer. She is status post low anterior resection due to anastomotic stricture and partial obstruction, 04/01/2022. Mediport was placed for chemotherapy. Her pain is well-controlled with PERIODONTIST. She is tolerating diet. She is having bowel movements. She is no longer constipated as she was prior to her surgery. She reports moderate improvement of her pre-existing left lower quadrant abdominal pain. She reports her most recent bowel movement was brown without blood. ROS: No reports of nausea and vomiting. No fevers or chills. No new chest pain. No productive sputum PHYSICAL EXAM: VITAL SIGNS: Reviewed CONSTITUTIONAL: Well developed and in no acute distress. EYES: Conjuctivae without sclera icterus. Extraocular movements grossly intact. HEAD, EARS, NOSE, THROAT: Moist buccal mucosa. Head is atraumatic, normocephalic. Hears conversational speech. No nasal drainage. RESPIRATORY: Non-labored respirations and equal bilateral excursions. CARDIOVASCULAR: Palpable 2+ radial pulses. ABDOMEN: No peritonitis. Dressings clean dry and intact. No signs of bleeding. No shadowing. MUSCULOSKELETAL: No gross deformity of the lower extremities noted. No clu bbing. No cyanosis. SKIN: Good skin turgor. Well perfused. NEUROLOGIC: Cranial nerves II through XII grossly intact. No focal or lateralizing signs. PSYCH: Appropriate affect. Alert and oriented to person, place and time. CLINICAL LABS: Reviewed. WBC normal 6.1 on 04/03/2022. Hemoglobin 8.9 on 04/03/2022. ASSESSMENT: 1. Adenocarcinoma of the pelvis, colorectal origin 2. Chronic left lower quadrant abdominal pain, improved 3. Diverticulosis with partial obstruction at anastomosis due to colorectal cancer, status post resection 4. Mediport placement PLAN: 1. I went over with the patient and her at bedside that surgery is only for symptomatic treatment for her left lower quadrant abdominal pain and partial obstruction which had improved following surgery. Her surgery as not curative of her colorectal cancer for which she will need chemotherapy. 2. Patient is a moderate narcotics and advised to contact her pain provider for additional narcotic pain medication. In my presence, her contacted her pain specialist with additional Percocet and methadone obtained. 3. Prior to discharge, patient had multiple questions on chemotherapy for which oncology follow-up is needed. I have requested for oncology team to see her prior to discharge for those questions to be addressed and as her port is functional for chemotherapy access. Objective - Vital Signs Vital signs: Vital Signs Temp 98.7 F 04/05/22 08:00 Pulse 99 04/05/22 08:00 Resp 18 04/05/22 01:18 BP 145/84 04/05/22 08:00 Pulse Ox 94 L 04/05/22 08:00 FiO2 21 04/02/22 07:40 Intake & Output 04/04/22 04/05/22 04/05/22 18:59 06:59 18:59 Other: Voiding Method Bedside Commode - Labs CBC & Chem 7: 04/03/22 11:18 04/03/22 11:18
--- NOTE | 2022-04-05 11:50 | CDI ---
Documentation Clarification Form Date: 04/05/2022 11:31:16 AM From: Felicitas Clinton CCS, CCDS Admit Date: 03/28/2022 12:52:00 PM Patient Name: Zachary Christine Visit Number: [id number] Discharge Date: ATTENTION: The Clinical Documentation Specialists (CDI) and [facility] Coding Staff appreciate your assistance in clarifying documentation. Please respond to the clarification below the line at the bottom and electronically sign. The CDI & [facility] Coding staff will review the response and follow-up if needed. Please note: Queries are made part of the Legal Health Record. If you have any questions, please contact the author of this message via ITS. Dr. Narvaez E. Sheet: Anemia without further specificity is documented in the 03/24 H/P, the 03/25 Oncology Consult and in the 03/26 Medical Management Consult and subsequent Progress Notes as mil anemia. Additional specificity regarding the Type & Acuity of Anemia is requested. History/Risk Factors per the 03/24 H/P: TIA x2, Fibromyalgia, GERD, Hyperlipidemia, Memory Loss, Osteoarthritis, Pneumonia, Seizure Disorder, Sleep apnea, Diverticulitis, Benign Colon Polyp, Gastric Ulcer, Chronic Back Pain, Bilateral Glaucoma, Bowel Resection, Hysterectomy, Tubal Ligation. Clinical indicators: Presented 03/24 for elective Colonoscopy with injection of Lin ink & Colonoscopy to the Cecum, Ileocecal Valve and Appendiceal Orifice for Sigmoid Diverticulitis and Chronic Constipation. 03/24 Postoperative Diagnosis: Sigmoid Diverticulitis with Stricture, Partial Large Bowel Obstruction. 03/25 Laparoscopic Robotic Assisted Sigmoid Colectomy aborted due to new metastatic pelvic peritoneal tumors of likely malignant potential ovarian/fallopian. 04/01 Robotic assisted Laparoscopic Sigmoid Colectomy with Low anterior resection. Hemoglobin 03/24: 10.1. 03/25: 9.6. 03/26: 9.8. 03/30: 9.1. 03/31: 9.0. 04/02: 9.3. 04/03: 8.9 Hematocrit 03/24: 32.0. 03/25: 31.6. 03/26: 31.1. 03/30: 29.9. 03/31: 30.3. 7/: 29.6. 04/03: 27.7. 03/25 LAB: Iron 106, TIBC 322, % Sat 32.92, Transferrin 230.0, Ferritin 33.3. Treatment 03/24: IV Reglan 10 mg q6H/prn, IV Dilaudid 0.5 mg x3, IV Dilaudid 1 mg q3H/prn. 03/25: IV Cefazolin 50 mls @ 100 mls/H x1, IV Flagyl 100 mls @ 100 mls/hr x1, Heparin 5,000 units sq x1, IV Decadron 4 mg x1, Typec/Crossed: no transfusion. 04/01: IV Cefazolin 50 mls @ 100 mls/hr x1, IV Flagyl 100 mls @ 100 mls/hr x1, IV Lactated Ringers, IV Fentanyl 100 mg x1, IV Versed 1 mg x1, I Zofran 4 mg x1, Heparin 5,000 units sq, IV Heparin, IV Trandate, IV Dilauid 10 mg prn, Typed & Crossed, no transfusion. Please clarify the Type & Acuity of Anemia: [ ] Acute blood loss anemia [ ] If anemia is related to the procedure, please specify if this is an expected or unexpected outcome of the procedure. [ ] Acute on chronic blood loss anemia [ ] Chronic blood loss anemia [ ] Hemolytic anemia [ ] Drug induced anemia [ ] Anemia due to malignancy [ ] Other cause of Anemia, please specify: [ ] Unable to determine (Template Last Revised: November 2020) no full anemia work up is done, possible elements of acute post-op blood loss anemia , expected and stable MTDD
--- NOTE | 2022-04-05 12:40 | P.DS ---
Providers Date of admission: 03/28/22 12:52 Expected date of discharge: 04/05/22 Attending physician: Ambreen Cm Consults: 03/25/22 12:08 Consult Physician Routine Consulting Provider: Gigi Byers Consult Reason/Comments: Medical management Do you want consulting provider notified?: Yes 03/25/22 12:19 Consult Physician Routine Consulting Provider: Fransisca Parnell Consult Reason/Comments: Metastatic peritoneal tumor of pelvis Do you want consulting provider notified?: Yes Primary care physician: [facility] Course: CHIEF COMPLAINT: Colorectal cancer HISTORY OF PRESENT ILLNESS: The patient is a 81-year-old female initially admitted for stricture due to diverticulitis. Intraoperative findings demonstrated peritoneal metastases outside of the colon involving the pelvis and fallopian tube. Biopsies were obtained and returned colorectal cancer. She is status post low anterior resection due to anastomotic stricture and partial obstruction, 04/01/2022. Mediport was placed for chemotherapy. Her pain is well-controlled with ACCOUNTING OFFICE MANAGER. She is tolerating diet. She is having bowel movements. She is no longer constipated as she was prior to her surgery. She reports moderate improvement of her pre-existing left lower quadrant abdominal pain. She reports her most recent bowel movement was brown without blood. ROS: No reports of nausea and vomiting. No fevers or chills. No new chest pain. No productive sputum PHYSICAL EXAM: VITAL SIGNS: Reviewed CONSTITUTIONAL: Well developed and in no acute distress. EYES: Conjuctivae without sclera icterus. Extraocular movements grossly intact. HEAD, EARS, NOSE, THROAT: Moist buccal mucosa. Head is atraumatic, normocephalic. Hears conversational speech. No nasal drainage. RESPIRATORY: Non-labored respirations and equal bilateral excursions. CARDIOVASCULAR: Palpable 2+ radial pulses. ABDOMEN: No peritonitis. Dressings clean dry and intact. No signs of bleeding. No shadowing. MUSCULOSKELETAL: No gross deformity of the lower extremities noted. No clubbing. No cyanosis. SKIN: Good skin turgor. Well perfused. NEUROLOGIC: Cranial nerves II through XII grossly intact. No focal or lateralizing signs. PSYCH: Appropriate affect. Alert and oriented to person, place and time. CLINICAL LABS: Reviewed. WBC normal 6.1 on 04/03/2022. Hemoglobin 8.9 on 04/03/2022. ASSESSMENT: 1. Adenocarcinoma of the pelvis, colorectal origin 2. Chronic left lower quadrant abdominal pain, improved 3. Diverticulosis with partial obstruction at anastomosis due to colorectal cancer, status post resection 4. Mediport placement PLAN: 1. I went over with the patient and her at bedside that surgery is only for symptomatic treatment for her left lower quadrant abdominal pain and partial obstruction which had improved following surgery. Her surgery as not curative of her colorectal cancer for which she will need chemotherapy. 2. Patient is a moderate narcotics and advised to contact her pain provider for additional narcotic pain medication. In my presence, her contacted her pain specialist with additional Percocet and methadone obtained. 3. Prior to discharge, patient had multiple questions on chemotherapy for which oncology follow-up is needed. I have requested for oncology team to see her prior to discharge for those questions to be addressed and as her port is functional for chemotherapy access. Plan - Discharge Summary Discharge Rx Participant: Yes New Discharge Prescriptions: No Action Pregabalin [Lyrica] 25 mg PO HS PRN PRN Reason: Pain Latanoprost/Pf [Latanoprost 0.005% Eye Drop] 1 drop BOTH EYES HS oxyCODONE-APAP 10-325MG [Percocet 10-325 mg] 1 tab PO QID Pantoprazole [Protonix] 40 mg PO QAM tiZANidine [Zanaflex] 4 mg PO HS PRN PRN Reason: Muscle Pain Melatonin 10 mg PO HS Linaclotide [Linzess] 290 mcg PO HS Aspirin EC [Ecotrin Low Dose] 81 mg PO DAILY Magnesium 500 mg PO HS Docusate [Colace] 100 mg PO HS Morphine Sulfate [Morphine Sulfate ER] 30 mg PO ONCE Methadone [Dolophine] 10 mg PO TID Mirtazapine 45 mg PO HS busPIRone HCl [Buspar] 20 mg PO BID DULoxetine HCL [Cymbalta] 60 mg PO HS QUEtiapine [SEROquel] 100 mg PO BID Dicyclomine [Bentyl] 20 mg PO QID #120 tablet Eye Drop (Unknown Name/Dose) 1 drop BOTH EYES BID Discharge Medication List Pregabalin [Lyrica] 25 mg PO HS PRN 06/07/18 [History] Latanoprost/Pf [Latanoprost 0.005% Eye Drop] 1 drop BOTH EYES HS 08/28/19 [History] oxyCODONE-APAP 10-325MG [Percocet 10-325 mg] 1 tab PO QID 03/02/20 [History] Pantoprazole [Protonix] 40 mg PO QAM 04/30/20 [History] tiZANidine [Zanaflex] 4 mg PO HS PRN 02/13/21 [History] Melatonin 10 mg PO HS 08/25/21 [History] Methadone [Dolophine] 10 mg PO TID 08/25/21 [History] Mirtazapine 45 mg PO HS 08/25/21 [History] Aspirin EC [Ecotrin Low Dose] 81 mg PO DAILY 11/02/21 [History] DULoxetine HCL [Cymbalta] 60 mg PO HS 11/02/21 [History] Linaclotide [Linzess] 290 mcg PO HS 11/02/21 [History] Magnesium 500 mg PO HS 11/02/21 [History] busPIRone HCl [Buspar] 20 mg PO BID 11/02/21 [History] Docusate [Colace] 100 mg PO HS 12/01/21 [History] QUEtiapine [SEROquel] 100 mg PO BID 02/18/22 [History] Dicyclomine [Bentyl] 20 mg PO QID #120 tablet 02/20/22 [Rx] Eye Drop (Unknown Name/Dose) 1 drop BOTH EYES BID 03/23/22 [History] Morphine Sulfate [Morphine Sulfate ER] 30 mg PO ONCE 03/24/22 [History] Follow up Appointment(s)/Referral(s): [facility] Visiting Nurse, [NON-STAFF] - As Needed Patient Instructions/Handouts: Low Fiber Diet (DC)
[2022-04-05] MEDS: HYDROmorphone PCA 10 MG/50 ML BAG IV PRN (13:19)
[2022-04-05 13:37] LABS: Basophils % (A) 1 %; Eosinophils # (A) 0.2 k/uL (0-0.7); Eosinophils % (A) 3 %; HCT 26.7 % (34.0-46.0); HGB 8.5 gm/dL (11.4-16.0); Hypochromasia Marked; Lymphocytes % (A) 23 %; MCH 27.3 pg (25.0-35.0); MCHC 31.6 g/dL (31.0-37.0); MCV 86.3 fL (80.0-100.0); Mean Platelet Volume 7.1; Monocytes # (A) 0.4 k/uL (0-1.0); Monocytes % (A) 9 %; Neutrophils # (A) 2.7 k/uL (1.3-7.7); Neutrophils % (A) 61 %; Platelet Count 246 k/uL (150-450); RBC 3.09 m/uL (3.80-5.40); RDW 15.3 % (11.5-15.5); WBC 4.4 k/uL (3.8-10.6)
[2022-04-05 13:47] LABS: African American GFR (CKD) >90 (>60 ml/min/1.73 sqM); Anion Gap 4 mmol/L; Blood Urea Nitrogen <2 mg/dL (7-17); Calcium 8.3 mg/dL (8.4-10.2); Carbon Dioxide 27 mmol/L (22-30); Chloride 104 mmol/L (98-107); Glucose 131 mg/dL (74-99); Non-African American GFR(CKD) 89 (>60 ml/min/1.73 sqM); Potassium 3.9 mmol/L (3.5-5.1); Sodium 135 mmol/L (137-145)
[2022-04-05 15:08] VITALS: BP 131/83; PULSE 106; RESP 17; TEMP 98.6
[2022-04-05 15:52] VITALS: BMI 36.3
--- NOTE | 2022-04-05 16:13 | P.PN ---
Subjective Progress Note Date: 04/05/22 Principal diagnosis: New colon cancer diagnosis Dr. Cam and Patient had asked for info about treatment plan. I spend 30 minutes, answered all questions, treatment plan likely FOLFOX x12 treatments approx 4-6 weeks post opertive. Will make appointment in 4 weeks. Objective - Vital Signs Vital signs: Vital Signs Temp 98.7 F 04/05/22 08:00 Pulse 99 04/05/22 08:00 Resp 18 04/05/22 01:18 BP 145/84 04/05/22 08:00 Pulse Ox 94 L 04/05/22 08:00 FiO2 21 04/02/22 07:40 Intake & Output 04/04/22 04/05/22 04/05/22 18:59 06:59 18:59 Other: Voiding Method Bedside Commode - Exam - Exam WD, overweight, NAD, smiling, pleasant. Resp even and unlabored - Constitutional General appearance: Present: cooperative, no acute distress - EENT ENT: Present: hearing grossly normal - Respiratory Details: resp even and unlabored - Cardiovascular Details: skin warm and dry to touch - Neurologic Neurologic: Present: CNII-XII intact (grossly) - Musculoskeletal Musculoskeletal: Present: generalized weakness - Psychiatric Psychiatric: Present: A&O x's 3, appropriate affect - Labs CBC & Chem 7: 04/05/22 13:12 04/05/22 13:12 Labs: Abnormal Lab Results - Last 24 Hours (Table) 04/05/22 04/05/22 Range/Units 13:12 13:12 RBC 3.09 L (3.80-5.40) m/uL Hgb 8.5 L (11.4-16.0) gm/dL Hct 26.7 L (34.0-46.0) % Sodium 135 L (137-145) mmol/L BUN <2 L (7-17) mg/dL Glucose 131 H (74-99) mg/dL Calcium 8.3 L (8.4-10.2) mg/dL Assessment and Plan (1) Pelvic mass Current Visit: No Status: Acute Code(s): R19.00 - INTRA-ABD AND PELVIC SWELLING, MASS AND LUMP, UNSP SITE SNOMED Code(s): 80580098 Plan: Status post laparoscopy, initially for colectomy for sigmoid stricure but once in OR concern of peritoneal metastatic deposits present in addition to pelvis mass. - Imaging and Cardiology CT scan - abdomen: report reviewed CT scan - chest: report reviewed CT scan - pelvis: report reviewed Assessment and Plan (1) Colon adenocarcinoma Current Visit: Yes Status: Acute Priority: High Code(s): C18.9 - MALIGNANT NEOPLASM OF COLON, UNSPECIFIED SNOMED Code(s): 715249526 (2) Abdominal pain Current Visit: Yes Status: Acute Priority: High Code(s): R10.9 - UNSPECIFIED ABDOMINAL PAIN SNOMED Code(s): 54844131 (3) Colon stricture Current Visit: Yes Status: Acute Code(s): K56.699 - OTHER INTESTNL OBST UNSP TO PARTIAL VERSUS COMPLETE OBST SNOMED Code(s): 5740534 Plan: Dr. Cam and Patient had asked for info about treatment plan. I spend 30 minutes, answered all questions, treatment plan likely FOLFOX x12 treatments approx 4-6 weeks post opertive. Will make appointment in 4 weeks.
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
== END 2022-04-05 17:49 | disposition home or self-care (01) | DRG 329 ==
LOC: ORWHC2ENDO 08:34 → 4SSUR 13:49 → ORWHC2ENDO 03-28 12:52 → 4SSUR 03-28 12:52
PROVIDERS: ADMIT Surgery Plastic and Reconstructive Surgery; ATTEND Surgery Plastic and Reconstructive Surgery
PROC: 0DJD8ZZ Inspection of Lower Intestinal Tract, Via Natural or Artificial Opening Endoscopic (ICD-10-PCS; 2022-03-24)
PROC: 3E0H8KZ Introduction of Other Diagnostic Substance into Lower GI, Via Natural or Artificial Opening Endoscopic (ICD-10-PCS; 2022-03-24)
PROC: 0WJG4ZZ Inspection of Peritoneal Cavity, Percutaneous Endoscopic Approach (ICD-10-PCS; 2022-03-25)
PROC: 8E0W8CZ Robotic Assisted Procedure of Trunk Region, Via Natural or Artificial Opening Endoscopic (ICD-10-PCS; 2022-03-25)
PROC: 0UB54ZX Excision of Right Fallopian Tube, Percutaneous Endoscopic Approach, Diagnostic (ICD-10-PCS; 2022-03-25)
PROC: 05HC33Z Insertion of Infusion Device into Left Basilic Vein, Percutaneous Approach (ICD-10-PCS; 2022-03-28)
PROC: 02H633Z Insertion of Infusion Device into Right Atrium, Percutaneous Approach (ICD-10-PCS; 2022-04-01)
PROC: 0JH63WZ Insertion of Totally Implantable Vascular Access Device into Chest Subcutaneous Tissue and Fascia, Percutaneous Approach (ICD-10-PCS; 2022-04-01)
PROC: 0DJD8ZZ Inspection of Lower Intestinal Tract, Via Natural or Artificial Opening Endoscopic (ICD-10-PCS; principal; 2022-04-01 11:55)
PROC: 0DTN4ZZ Resection of Sigmoid Colon, Percutaneous Endoscopic Approach (ICD-10-PCS; principal; 2022-04-01 11:55)
PROC: 8E0W8CZ Robotic Assisted Procedure of Trunk Region, Via Natural or Artificial Opening Endoscopic (ICD-10-PCS; principal; 2022-04-01 11:55)
DX: C19 Malignant neoplasm of rectosigmoid junction (principal); K56.2 Volvulus; C78.6 Secondary malignant neoplasm of retroperitoneum and peritoneum; C79.82 Secondary malignant neoplasm of genital organs; D62 Acute posthemorrhagic anemia; K56.690 Other partial intestinal obstruction; R18.8 Other ascites; F11.20 Opioid dependence, uncomplicated; E66.9 Obesity, unspecified; Z68.36 Body mass index [BMI] 36.0-36.9, adult; E78.5 Hyperlipidemia, unspecified; F31.9 Bipolar disorder, unspecified; F41.0 Panic disorder [episodic paroxysmal anxiety]; F43.10 Post-traumatic stress disorder, unspecified; G40.909 Epilepsy, unspecified, not intractable, without status epilepticus; G47.33 Obstructive sleep apnea (adult) (pediatric); G89.4 Chronic pain syndrome; H40.9 Unspecified glaucoma; K21.9 Gastro-esophageal reflux disease without esophagitis; M54.9 Dorsalgia, unspecified; K58.9 Irritable bowel syndrome, unspecified; K64.0 First degree hemorrhoids; K76.89 Other specified diseases of liver; M79.7 Fibromyalgia; N73.6 Female pelvic peritoneal adhesions (postinfective); K59.09 Other constipation; M19.90 Unspecified osteoarthritis, unspecified site; N83.201 Unspecified ovarian cyst, right side; Z53.9 Procedure and treatment not carried out, unspecified reason; Z79.82 Long term (current) use of aspirin; Z79.899 Other long term (current) drug therapy; Z82.49 Family history of ischemic heart disease and other diseases of the circulatory system; Z86.73 Personal history of transient ischemic attack (TIA), and cerebral infarction without residual deficits; Z87.11 Personal history of peptic ulcer disease; Z86.010 Personal history of colon polyps; Z87.891 Personal history of nicotine dependence; Z90.710 Acquired absence of both cervix and uterus; Z96.612 Presence of left artificial shoulder joint; Z96.653 Presence of artificial knee joint, bilateral; Z87.01 Personal history of pneumonia (recurrent); Z91.81 History of falling; Z98.1 Arthrodesis status; Z88.5 Allergy status to narcotic agent; Z80.9 Family history of malignant neoplasm, unspecified
CPT/HCPCS: 36410; 45381; 64999; 71260; 74177; 76705; 76937; 77001; 80048; 80053; 82378; 82728; 83540; 83550; 83735; 84100; 85025; 85027; 86301; 86304; 86850; 86900; 86901; 88108; 88305; 88341; 88342; 94640; 94760; 94762

== ENCOUNTER 2022-04-14 18:43 | Emergency (ER) | payer MEDICARE, OTHER ==
[2022-04-14 18:58] VITALS: BP 148/108; PULSE 124; RESP 22; TEMP 99.1
[2022-04-14] MEDS ORDERED: SODIUM CHLORIDE 0.9% 500 ML 500 ML IV STA (18:59)
[2022-04-14] MEDS ORDERED: HYDROmorphone 1 MG/ML 1 ML SYRINGE IVP STA ×3 (18:59→22:33)
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
[2022-04-14 20:35] LABS: Basophils # (A) 0.1 k/uL (0-0.2); Basophils % (A) 1 %; Eosinophils # (A) 0.1 k/uL (0-0.7); Eosinophils % (A) 2 %; HCT 38.7 % (34.0-46.0); Hypochromasia Slight; Lymphocytes # (A) 1.1 k/uL (1.0-4.8); Lymphocytes % (A) 14 %; MCV 83.9 fL (80.0-100.0); Mean Platelet Volume 7.2; Monocytes # (A) 0.5 k/uL (0-1.0); Monocytes % (A) 6 %; Neutrophils # (A) 6.1 k/uL (1.3-7.7); Neutrophils % (A) 75 %; Platelet Count 438 k/uL (150-450); RBC 4.61 m/uL (3.80-5.40); RDW 15.3 % (11.5-15.5); WBC 8.2 k/uL (3.8-10.6)
[2022-04-14 20:42] LABS: Albumin 4.9 g/dL (3.5-5.0); Calcium 10.4 mg/dL (8.4-10.2); Potassium 4.7 mmol/L (3.5-5.1); Total Bilirubin 0.4 mg/dL (0.2-1.3); Total Protein 9.3 g/dL (6.3-8.2)
[2022-04-14 20:46] LABS: Partial Thromboplastin Time 23.6 sec (22.0-30.0); Prothrombin Time 10.4 sec (9.0-12.0)
[2022-04-14] MEDS ORDERED: SODIUM CHLORIDE 0.9% 500 ML 500 ML IV ONE (21:32)
--- NOTE | 2022-04-14 22:21 | CT ---
EXAMINATION TYPE: CT abdomen pelvis w con DATE OF EXAM: 04/14/2022 HISTORY: abdominal pain. recent colectomy x1 week ago CT DLP: 1168.5mGycm Automated Exposure Control for Dose Reduction was Utilized. CONTRAST: CT scan of the abdomen and pelvis is performed with IV Contrast, patient injected with 100 mL of Isovue 300. COMPARISON: 03/29/2022 FINDINGS: LUNG BASES: No acute process. LIVER/GB: No acute process. PANCREAS: No acute process.. SPLEEN: No acute process. ADRENALS: No acute process.. KIDNEYS: No acute process. BOWEL: No acute bowel process. LYMPH NODES: No greater than 1cm abdominal or pelvic lymph nodes are appreciated. OSSEOUS STRUCTURES: No acute findings. VASCULATURE: No acute vascular findings. OTHER: There are multifocal 1-2 cm soft tissue nodules bilaterally throughout the abdomen and pelvis, greater on the left, suspicious for neoplastic nodules. IMPRESSION: 1. No significant acute CT process. 2. However, multifocal 1-2 cm soft tissue nodules are seen bilaterally throughout the abdomen and pe lvis, greater on the left, suspicious for neoplastic nodules.
== END 2022-04-14 23:06 | disposition home or self-care (01) ==
LOC: EC 18:43
DX: C18.9 Malignant neoplasm of colon, unspecified (principal); G40.909 Epilepsy, unspecified, not intractable, without status epilepticus; K21.9 Gastro-esophageal reflux disease without esophagitis; E78.5 Hyperlipidemia, unspecified; M79.7 Fibromyalgia; M19.90 Unspecified osteoarthritis, unspecified site; Z86.73 Personal history of transient ischemic attack (TIA), and cerebral infarction without residual deficits; Z79.82 Long term (current) use of aspirin; Z79.899 Other long term (current) drug therapy
CPT/HCPCS: 36415; 80053; 82150; 83605; 83690; 85025; 85610; 85730; 74177; 99284; 96374; 96376 ×2; J1170; Q9967

== ENCOUNTER 2022-04-15 15:11 | Emergency (ER) | payer MEDICARE, OTHER ==
[2022-04-15 15:33] VITALS: RESP 18; TEMP 98.6
[2022-04-15] MEDS ORDERED: ONDANSETRON 4 MG/2 ML VIAL IVP STA (16:31)
[2022-04-15] MEDS ORDERED: SODIUM CHLORIDE 0.9% 1,000 ML IV STA (16:31)
[2022-04-15] MEDS ORDERED: MORPHINE SULFATE 4 MG/ML SYRINGE IV STA (16:31)
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
[2022-04-15 17:50] VITALS: BP 122/82; PULSE 82
[2022-04-15 17:56] LABS: Basophils % (A) 1 %; Eosinophils # (A) 0.2 k/uL (0-0.7); Eosinophils % (A) 2 %; HCT 33.6 % (34.0-46.0); HGB 10.5 gm/dL (11.4-16.0); Hypochromasia Slight; Lymphocytes # (A) 1.5 k/uL (1.0-4.8); Lymphocytes % (A) 23 %; MCH 26.1 pg (25.0-35.0); MCHC 31.2 g/dL (31.0-37.0); MCV 83.6 fL (80.0-100.0); Mean Platelet Volume 7.5; Monocytes # (A) 0.4 k/uL (0-1.0); Monocytes % (A) 6 %; Neutrophils # (A) 4.3 k/uL (1.3-7.7); Neutrophils % (A) 66 %; Platelet Count 370 k/uL (150-450); RBC 4.02 m/uL (3.80-5.40); RDW 15.4 % (11.5-15.5); WBC 6.5 k/uL (3.8-10.6)
[2022-04-15 18:07] LABS: ALT 13 U/L (4-34); AST 38 U/L (14-36); African American GFR (CKD) >90 (>60 ml/min/1.73 sqM); Albumin 4.3 g/dL (3.5-5.0); Alkaline Phosphatase 93 U/L (38-126); Anion Gap 10 mmol/L; Blood Urea Nitrogen 14 mg/dL (7-17); Calcium 9.7 mg/dL (8.4-10.2); Carbon Dioxide 24 mmol/L (22-30); Chloride 103 mmol/L (98-107); Glucose 98 mg/dL (74-99); Lipase 54 U/L (23-300); Non-African American GFR(CKD) 79 (>60 ml/min/1.73 sqM); Sodium 137 mmol/L (137-145); Total Bilirubin 0.6 mg/dL (0.2-1.3); Total Protein 8.3 g/dL (6.3-8.2)
--- NOTE | 2022-04-15 18:10 | XR ---
EXAMINATION TYPE: XR KUB DATE OF EXAM: 04/15/2022 COMPARISON: NONE HISTORY: Pain TECHNIQUE: Single supine KUB image of the abdomen is obtained FINDINGS: Small bowel demonstrates no evidence for dilatation or air fluid levels. Moderate fecal stasis noted. Gaseous distention of small and large bowel.. No convincing evidence for pneumoperitoneum. No unusual calcifications. The lung bases are clear. The osseous structures are intact. IMPRESSION: 1. Nonspecific bowel gas pattern. Moderate fecal stasis.
[2022-04-15 18:13] LABS: Potassium 4.5 mmol/L (3.5-5.1)
[2022-04-15 18:53] LABS: Appearance,Urine Clear (Clear); Bilirubin,Urine Negative (Negative); Blood,Urine Negative (Negative); Color,Urine Yellow; Glucose,Urine (UA) Negative (Negative); Ketones,Urine Negative (Negative); Leukocyte Esterase,Urine Negative (Negative); Mucus,Urine Rare /hpf; Nitrite,Urine Negative (Negative); PH, Urine 8.5 (5.0-8.0); Protein,Urine 1+ (Negative); RBC,Urine 2 /hpf (0-5); Specific Gravity,Urine 1.026 (1.001-1.035); Squamous Epithelial Cell,Urine 1 /hpf (0-4); Urobilinogen,Urine <2.0 mg/dL (<2.0); WBC,Urine <1 /hpf (0-5)
[2022-04-15] MEDS ORDERED: KETOROLAC 15 MG/ML 1 ML VIAL IVP STA (19:09)
== END 2022-04-15 20:52 | disposition home or self-care (01) ==
LOC: EC 15:11
DX: G89.29 Other chronic pain (principal); R10.9 Unspecified abdominal pain; Z88.8 Allergy status to other drugs, medicaments and biological substances; Z86.73 Personal history of transient ischemic attack (TIA), and cerebral infarction without residual deficits
CPT/HCPCS: 36415; 80053; 83605; 83690; 85025; 81001; 74018; 99284; 96374; 96375; 96361; J2270; J2405; J1885

== ENCOUNTER 2022-04-19 10:23 | Observation (INO) | payer MEDICARE, OTHER ==
[2022-04-19] MEDS ORDERED: ONDANSETRON 4 MG/2 ML VIAL IVP STA (10:25)
[2022-04-19] MEDS ORDERED: HYDROmorphone 0.5 MG/0.5 ML SYRINGE IVP STA (10:25)
[2022-04-19] MEDS ORDERED: SODIUM CHLORIDE 0.9% 1,000 ML IV STA ×2 (10:25)
[2022-04-19] MEDS ORDERED: SODIUM CHLORIDE 0.9% 500 ML 500 ML IV STA (10:25)
[2022-04-19] MEDS ORDERED: HYDROmorphone 0.5 MG/0.5 ML SYRINGE IVP PRN (10:27)
[2022-04-19] MEDS ORDERED: NALOXONE 0.4 MG/ML 1 ML VIAL IV PRN (10:27)
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
[2022-04-19 12:44] LABS: Basophils % (A) 0 %; Eosinophils # (A) 0.1 k/uL (0-0.7); Eosinophils % (A) 1 %; HCT 34.2 % (34.0-46.0); HGB 10.6 gm/dL (11.4-16.0); Hypochromasia Slight; Lymphocytes # (A) 1.3 k/uL (1.0-4.8); Lymphocytes % (A) 21 %; MCV 83.9 fL (80.0-100.0); Mean Platelet Volume 7.3; Monocytes # (A) 0.3 k/uL (0-1.0); Monocytes % (A) 5 %; Neutrophils # (A) 4.4 k/uL (1.3-7.7); Neutrophils % (A) 70 %; Platelet Count 354 k/uL (150-450); RBC 4.07 m/uL (3.80-5.40); RDW 15.3 % (11.5-15.5); WBC 6.4 k/uL (3.8-10.6)
[2022-04-19] MEDS: SODIUM CHLORIDE 0.9% 1,000 ML IV SCH (12:44)
[2022-04-19 13:02] LABS: ALT 12 U/L (4-34); AST 24 U/L (14-36); African American GFR (CKD) >90 (>60 ml/min/1.73 sqM); Albumin 4.4 g/dL (3.5-5.0); Alkaline Phosphatase 107 U/L (38-126); Anion Gap 9 mmol/L; Blood Urea Nitrogen 16 mg/dL (7-17); Calcium 9.6 mg/dL (8.4-10.2); Carbon Dioxide 24 mmol/L (22-30); Chloride 103 mmol/L (98-107); Glucose 110 mg/dL (74-99); Lipase 77 U/L (23-300); Magnesium 1.9 mg/dL (1.6-2.3); Non-African American GFR(CKD) 79 (>60 ml/min/1.73 sqM); Potassium 4.3 mmol/L (3.5-5.1); Sodium 136 mmol/L (137-145); Total Bilirubin 0.3 mg/dL (0.2-1.3); Total Protein 8.6 g/dL (6.3-8.2)
[2022-04-19] MEDS ORDERED: SODIUM CHLORIDE 0.9% 1,000 ML IV ONE (13:33)
[2022-04-19] MEDS ORDERED: ACETAMINOPHEN TAB 500 MG TAB PO PRN (13:33)
[2022-04-19] MEDS ORDERED: SIMETHICONE 80 MG CHEWABLE PO PRN (13:33)
[2022-04-19] MEDS ORDERED: METHADONE 10 MG TAB PO PRN (13:33)
[2022-04-19] MEDS ORDERED: LORazepam 0.5 MG TAB PO PRN (13:33)
[2022-04-19] MEDS: DICYCLOMINE 20 MG TAB PO SCH ×2 (18:53→21:54)
[2022-04-19] MEDS: HYDROmorphone 1 MG/ML 1 ML SYRINGE IVP PRN ×2 (18:53→21:57)
[2022-04-19] MEDS ORDERED: tiZANidine 4 MG TAB PO PRN (21:00)
[2022-04-19] MEDS: MELATONIN 5 MG TABLET PO SCH (21:54)
[2022-04-19] MEDS: MAGNESIUM OXIDE 400 MG TAB PO SCH (21:54)
[2022-04-19] MEDS: busPIRone HCl 10 MG TAB PO SCH (21:54)
[2022-04-19] MEDS: FLUTICASONE 50MCG/SPRAY NASAL 16GM EA NOSTRIL SCH (21:54)
[2022-04-19] MEDS: DULoxetine HCL 60 MG CAPSULE.DR PO SCH (21:54)
[2022-04-19] MEDS: QUEtiapine 100 MG TAB PO SCH (22:24)
[2022-04-19] MEDS: MIRTAZAPINE 45 MG TABLET PO SCH (22:24)
[2022-04-19] MEDS: LATANOPROST 0.005% OPHTH DROPS 2.5 ML BTL BOTH EYES SCH (22:24)
[2022-04-19] MEDS: PROMETHAZINE 25 MG TAB PO PRN (22:25)
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
[2022-04-20] MEDS: HYDROmorphone 1 MG/ML 1 ML SYRINGE IVP PRN ×8 (01:01→22:58)
[2022-04-20] MEDS: SODIUM CHLORIDE 0.9% 1,000 ML IV SCH ×2 (01:03→12:57)
[2022-04-20] MEDS: PROMETHAZINE 25 MG TAB PO PRN ×3 (04:13→19:58)
[2022-04-20] MEDS: ASPIRIN 81 MG PO SCH (07:16)
[2022-04-20] MEDS: DICYCLOMINE 20 MG TAB PO SCH ×4 (07:16→21:12)
[2022-04-20] MEDS: QUEtiapine 100 MG TAB PO SCH ×2 (07:17→19:59)
[2022-04-20] MEDS: PANTOPRAZOLE 40 MG TABLET PO SCH (07:17)
[2022-04-20] MEDS: FLUTICASONE 50MCG/SPRAY NASAL 16GM EA NOSTRIL SCH ×2 (07:17→20:00)
[2022-04-20] MEDS: busPIRone HCl 10 MG TAB PO SCH ×2 (07:17→19:59)
[2022-04-20] MEDS: ONDANSETRON 4 MG/2 ML VIAL IVP PRN ×2 (07:19→16:58)
--- NOTE | 2022-04-20 13:36 | P.PN ---
Subjective Progress Note Date: 04/20/22 CHIEF COMPLAINT: Abdominal pain HISTORY OF PRESENT ILLNESS: The patient is a 81 year old female with chronic pain syndrome including chronic abdominal pain and chronic constipation for over 3 years due to diverticulitis who is status post sigmoid colectomy 04/01/22 for partial bowel obstruction due to colon cancer. She presents to emergency room with complaints of abdominal cramping and chronic diarrhea. No blood in the stools. She denies any fevers. She had been having vomiting prior to admission. Vomiting has resolved. Afebrile WBC 6.4 hemoglobin 10.6 platelets 354 sodium 136 potassium 4.3 creatinine 0.73. C. diff culture was not collected yet PHYSICAL EXAM: VITAL SIGNS: Reviewed GENERAL: Well-developed in no acute distress. HEENT: No sclera icterus. Extraocular movements grossly intact. Moist buccal mucosa. Head is atraumatic, normocephalic. Hears conversational speech. No nasal drainage. NECK: Supple without lymphadenopathy. CHEST: Non-labored respirations and equal bilateral excursions. CARDIOVASCULAR: Palpable 2+ radial pulses. ABDOMEN: Soft. Nondistended. Tender with palpation of the lower abdomen. Incision sites clean dry and intact. MUSCULOSKELETAL: No clubbing or cyanosis. NEUROLOGIC: No focal or lateralizing signs. Cranial nerves II through XII grossly intact. PSYCH: Appropriate affect. Alert and oriented to person, place and time. SKIN: Well perfused. Good skin turgor. ASSESSMENT: 1. Intractable acute on chronic abdominal pain 2. Colon cancer with metastasis 3. Dehydration 4. 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 Signing provider agrees with the documented findings, assessment, and plan of care. Objective - Vital Signs Vital signs: Vital Signs Temp 97.8 F 04/20/22 04:18 Pulse 94 04/20/22 04:18 Resp 18 04/20/22 04:18 BP 143/86 04/20/22 04:18 Pulse Ox 94 L 04/20/22 04:18 FiO2 Intake & Output 04/19/22 04/20/22 04/20/22 18:59 06:59 18:59 Intake Total 900 Balance 900 Weight 76.204 kg Intake: Intake, IV Titration 600 Amount Sodium Chloride 0.9% 1, 600 000 ml @ 75 mls/hr IV . [id number] [facility] Rx#:[id number] Oral 300 Other: Voiding Method Bedside Commode # Voids 2 - Labs CBC & Chem 7: 04/19/22 12:36 04/19/22 12:36
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
[2022-04-20 15:54] VITALS: BMI 27.1
[2022-04-20 19:24] VITALS: RESP 16
[2022-04-20] MEDS: MELATONIN 5 MG TABLET PO SCH (19:59)
[2022-04-20] MEDS: MAGNESIUM OXIDE 400 MG TAB PO SCH (19:59)
[2022-04-20] MEDS: MIRTAZAPINE 45 MG TABLET PO SCH (20:00)
[2022-04-20] MEDS: DULoxetine HCL 60 MG CAPSULE.DR PO SCH (20:00)
[2022-04-20] MEDS: LATANOPROST 0.005% OPHTH DROPS 2.5 ML BTL BOTH EYES SCH (20:00)
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
[2022-04-21] MEDS: SODIUM CHLORIDE 0.9% 1,000 ML IV SCH (01:49)
[2022-04-21] MEDS: HYDROmorphone 1 MG/ML 1 ML SYRINGE IVP PRN ×4 (01:58→11:53)
[2022-04-21] MEDS: PROMETHAZINE 25 MG TAB PO PRN ×2 (01:58→09:15)
[2022-04-21 07:21] VITALS: TEMP 98.2
[2022-04-21] MEDS: ASPIRIN 81 MG PO SCH (08:16)
[2022-04-21] MEDS: DICYCLOMINE 20 MG TAB PO SCH ×2 (08:16→13:28)
[2022-04-21] MEDS: busPIRone HCl 10 MG TAB PO SCH (08:16)
[2022-04-21] MEDS: PANTOPRAZOLE 40 MG TABLET PO SCH (08:16)
[2022-04-21] MEDS: QUEtiapine 100 MG TAB PO SCH (09:15)
[2022-04-21] MEDS: FLUTICASONE 50MCG/SPRAY NASAL 16GM EA NOSTRIL SCH (10:07)
[2022-04-21 10:58] LABS: African American GFR (CKD) 89.2 (60.0-200.0); Anion Gap 10.1 mmol/L (10.00-18.00); BUN/Creat Ratio 18.35 Ratio (12.00-20.00); Blood Urea Nitrogen 13.6 mg/dL (9.0-27.0); Carbon Dioxide 23.8 mmol/L (20.0-27.5); Non-African American GFR(CKD) 76.9 (60.0-200.0); Potassium 4.4 mmol/L (3.5-5.5)
[2022-04-21 13:03] VITALS: BP 148/89; PULSE 98
--- NOTE | 2022-04-21 13:55 | P.DS ---
Providers Date of admission: 04/19/22 13:22 Expected date of discharge: 04/21/22 Attending physician: Ambreen Cm Consults: 04/19/22 13:32 Consult Physician Urgent Consulting Provider: Rafita Rosen Consult Reason/Comments: Colon cancer, chemo therapy has port Do you want consulting provider notified?: Yes 04/19/22 22:05 Consult Physician Routine Consulting Provider: Brice Montoya Consult Reason/Comments: Medical management Do you want consulting provider notified?: Yes Primary care physician: Hill Mata Hospital Course: Discharge diagnosis 1. Intractable acute on chronic abdominal pain 2. Colon cancer with metastasis 3. Dehydration 4. Chronic diarrhea Hospital course The patient is a 81 year old female with chronic pain syndrome including chronic abdominal pain and chronic constipation for over 3 years due to diverticulitis who is status post sigmoid colectomy 04/01/22 for partial bowel obstruction due to colon cancer. She presents to emergency room with complaints of abdominal cramping and chronic diarrhea. No blood in the stools. She denies any fevers. She takes multiple stool softeners, laxatives and motility agents. Computed tomography scan abdomen and pelvis from with new metastatic lesions along the peritoneum left upper abdomen. Patient's diarrhea resolved with the discontinuation of the laxatives and stool softeners. She is tolerating a low fiber diet. Her pain is controlled. She's been rehydrated. She has been up and ambulating. She is stable for discharge. Case was discussed with oncology service. At this time increasing patient's nutrition intake with the Provera protein shakes. Encouraged patient to increase her oral intake and to continue ambulating and increasing her strength. Patient will follow-up with oncology next week for discussion of starting chemotherapy. Patient is stable for discharge. Physician Student Driving Instructor note has been reviewed by physician. Signing provider agrees with the documented findings, assessment, and plan of care. Patient Condition at Discharge: Stable Plan - Discharge Summary Discharge Rx Participant: No New Discharge Prescriptions: Continue Latanoprost/Pf [Latanoprost 0.005% Eye Drop] 1 drop BOTH EYES HS Pantoprazole [Protonix] 40 mg PO DAILY tiZANidine [Zanaflex] 4 mg PO HS PRN PRN Reason: Muscle Pain Aspirin EC [Ecotrin Low Dose] 81 mg PO DAILY Magnesium 500 mg PO HS Acetaminophen Tab [Tylenol] 500 mg PO Q6H PRN #30 tablet PRN Reason: Pain LORazepam [Ativan] 0.5 mg PO QID PRN PRN Reason: Anxiety Fluticasone Nasal [place] [Flonase Nasal [place]] 1 spray EA NOSTRIL BID Melatonin [Melatonin Dissolving Tablet] 10 mg PO HS Methadone [Dolophine] 10 mg PO TID PRN PRN Reason: Pain Mirtazapine 45 mg PO HS busPIRone HCl [Buspar] 10 mg PO BID DULoxetine HCL [Cymbalta] 60 mg PO HS QUEtiapine [SEROquel] 100 mg PO BID Dicyclomine [Bentyl] 20 mg PO QID #120 tablet Simethicone [Gas-X] 125 mg PO AC-TID PRN #20 capsule PRN Reason: Pain Changed oxyCODONE-APAP 10-325MG [Percocet 10-325 mg] 1 tab PO QID PRN #0 PRN Reason: Pain Discontinued Linaclotide [Linzess] 290 mcg PO HS Docusate [Colace] 100 mg PO HS Discharge Medication List Latanoprost/Pf [Latanoprost 0.005% Eye Drop] 1 drop BOTH EYES HS 08/28/19 [History] Pantoprazole [Protonix] 40 mg PO DAILY 04/30/20 [History] tiZANidine [Zanaflex] 4 mg PO HS PRN 02/13/21 [History] Methadone [Dolophine] 10 mg PO TID PRN 08/25/21 [History] Mirtazapine 45 mg PO HS 08/25/21 [History] Aspirin EC [Ecotrin Low Dose] 81 mg PO DAILY 11/02/21 [History] DULoxetine HCL [Cymbalta] 60 mg PO HS 11/02/21 [History] Magnesium 500 mg PO HS 11/02/21 [History] busPIRone HCl [Buspar] 10 mg PO BID 11/02/21 [History] QUEtiapine [SEROquel] 100 mg PO BID 02/18/22 [History] Dicyclomine [Bentyl] 20 mg PO QID #120 tablet 02/20/22 [Rx] Acetaminophen Tab [Tylenol] 500 mg PO Q6H PRN #30 tablet 04/05/22 [Rx] Simethicone [Gas-X] 125 mg PO AC-TID PRN #20 capsule 04/05/22 [Rx] Fluticasone Nasal [place] [Flonase Nasal [place]] 1 spray EA NOSTRIL BID 04/15/22 [History] LORazepam [Ativan] 0.5 mg PO QID PRN 04/15/22 [History] Melatonin [Melatonin Dissolving Tablet] 10 mg PO HS 04/19/22 [History] oxyCODONE-APAP 10-325MG [Percocet 10-325 mg] 1 tab PO QID PRN #0 04/21/22 [Rx] Follow up Appointment(s)/Referral(s): None,Stated [REFERRING] - 1-2 days Ambreen Cm MD [STAFF PHYSICIAN] - 04/26/22 Td Strauss MD [STAFF PHYSICIAN] - 1 Week Activity/Diet/Wound Care/Special Instructions: Continue low fiber diet Continue premier protein shakes 3 times a day Discharge Disposition: HOME SELF-CARE
--- NOTE | 2022-04-21 14:32 | P.PN ---
Subjective Progress Note Date: 04/21/22 Principal diagnosis: New Colon Cancer Dr. Strauss has spoken to surgery regarding chemotherapy as outpatient, I believe plan for discharge will be today, however she iwll need home care, PT?OT and close monitoring, I recommend Palliaitive as outpatient to assist with decreased re-admissions Objective - Vital Signs Vital signs: Vital Signs Temp 98.2 F 04/21/22 13:00 Pulse 98 04/21/22 13:00 Resp 16 04/21/22 13:00 BP 148/89 04/21/22 13:00 Pulse Ox 96 04/21/22 07:19 FiO2 Intake & Output 04/20/22 04/21/22 04/21/22 18:59 06:59 18:59 Intake Total 3000 Balance 3000 Weight 76.204 kg Intake: Intake, IV Titration 900 Amount Sodium Chloride 0.9% 1, 900 000 ml @ 75 mls/hr IV . [id number] FLAVIO Rx#:[id number] Oral 2100 Other: Voiding Method Bedside Commode # Voids 4 1 - Labs CBC & Chem 7: 04/19/22 12:36 04/21/22 07:17 Assessment and Plan (1) Colon cancer Narrative/Plan: Status post surgical resection on April 01, this is just under [address] scan from 04/14/2022 does reveal bilateral abdominal nodules concerning for peritoneal metastatic deposits Her performance status could improve, nutrition as well, and given her age and other multifactorial co morbititites there is a greater risk for emergent inpatient chemotherapy then for allowing healing and outpatient treatment. At this time it is recommended we work closely with daily PT/OT, Drill Operator (Calorie count) and replace nutrition needs where needed. Re-evaluation post PT/OT and Drill Operator Supportive care and symptom management to continue If diarrhea recurs, please obtain stool studies Abdominal flat plate assess for obstruction Current Visit: Yes Status: Acute Code(s): C18.9 - MALIGNANT NEOPLASM OF COLON, UNSPECIFIED SNOMED Code(s): 178733475 (2) Malnutrition Current Visit: Yes Status: Acute Code(s): E46 - UNSPECIFIED PROTEIN-CALORIE MALNUTRITION SNOMED Code(s): 29688799 (3) Abdominal pain Current Visit: Yes Status: Acute Priority: High Code(s): R10.9 - UNSP ECIFIED ABDOMINAL PAIN SNOMED Code(s): 84835978 (4) Dehydration Current Visit: Yes Status: Acute Code(s): E86.0 - DEHYDRATION SNOMED Code(s): 36014138 (5) Nausea & vomiting Current Visit: Yes Status: Acute Code(s): R11.2 - NAUSEA WITH VOMITING, UNSPECIFIED SNOMED Code(s): 40096325 (6) Anxiety disorder Current Visit: No Status: Acute Priority: Medium Code(s): F41.9 - ANXIETY DISORDER, UNSPECIFIED SNOMED Code(s): 716178556 Plan: She will see Dr. Strauss in office on 04/27 as scheduled and chemotherapy date will be determined at that time Will plan outpatient PET NGS, PDL1 Testing She will need close symptom management as outpatient, highly recommend palliaitive care in addition to home care for PT.OT Dr. Page: I have completed the full history and physical and developed the above impression and plan, agree with dictation, dictated as a scribe.
[2022-04-21] MEDS ORDERED: oxyCODONE-APAP 10-325MG 1 EACH TAB PO PRN (14:37)
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
== END 2022-04-21 15:10 | disposition home or self-care (01) ==
LOC: SUPCPDRO 10:23 → EC 10:23 → 5NMEDONC 13:22
PROVIDERS: ADMIT Surgery Plastic and Reconstructive Surgery; ATTEND Surgery Plastic and Reconstructive Surgery
DX: E86.0 Dehydration (principal); C79.9 Secondary malignant neoplasm of unspecified site; C18.9 Malignant neoplasm of colon, unspecified; Z87.19 Personal history of other diseases of the digestive system; Z90.49 Acquired absence of other specified parts of digestive tract; Z95.828 Presence of other vascular implants and grafts; F41.9 Anxiety disorder, unspecified; F31.9 Bipolar disorder, unspecified; K21.9 Gastro-esophageal reflux disease without esophagitis; M79.7 Fibromyalgia; E78.5 Hyperlipidemia, unspecified; R41.3 Other amnesia; Z86.73 Personal history of transient ischemic attack (TIA), and cerebral infarction without residual deficits; M19.90 Unspecified osteoarthritis, unspecified site; G47.33 Obstructive sleep apnea (adult) (pediatric); G40.909 Epilepsy, unspecified, not intractable, without status epilepticus; I95.9 Hypotension, unspecified; Z90.710 Acquired absence of both cervix and uterus; Z98.51 Tubal ligation status; Z98.890 Other specified postprocedural states; Z96.653 Presence of artificial knee joint, bilateral; Z98.42 Cataract extraction status, left eye; Z98.41 Cataract extraction status, right eye; Z96.612 Presence of left artificial shoulder joint; Z98.1 Arthrodesis status; E46 Unspecified protein-calorie malnutrition; G89.4 Chronic pain syndrome; Z79.82 Long term (current) use of aspirin; Z79.891 Long term (current) use of opiate analgesic; Z79.899 Other long term (current) drug therapy; Z88.5 Allergy status to narcotic agent; Z88.8 Allergy status to other drugs, medicaments and biological substances; Z82.49 Family history of ischemic heart disease and other diseases of the circulatory system
CPT/HCPCS: 96376 ×4; 96361 ×3; 96374; 96375; 99284; 36415; 97162; 80053; 80048; 83605; 83690; 83735; 85025; G0378 ×3; J2405 ×2; S0109; J1170 ×4

== ENCOUNTER → 2022-05-05 | Outpatient (CLI) | payer MEDICARE, OTHER ==
[2022-05-05 15:38] LABS: African American GFR (CKD) >90 (>60 ml/min/1.73 sqM); Blood Urea Nitrogen 25 mg/dL (7-17); Non-African American GFR(CKD) 84 (>60 ml/min/1.73 sqM)
--- NOTE | 2022-05-05 16:48 | CT ---
EXAMINATION TYPE: CT chest w con CT DLP: 440 mGycm, Automated exposure control for dose reduction was used. DATE OF EXAM: 05/05/2022 4:21 PM COMPARISON: CT chest abdomen pelvis 03/21/2022 CT abdomen pelvis 04/14/2022. CLINICAL INDICATION:Female, 81 years old with history of C18.7 MALIGNANT NEOPLASM OF SIGMOID COLON; P HH, MALIGNANT NEOPLASM OF SIGMOID COLON TECHNIQUE: Multiple axial images were obtained through the chest following the administration of 100 cc of Isovue 300. Coronal and sagittal reformats reviewed. FINDINGS: LUNGS/ PLEURA: No pleural effusion, pneumothorax, focal consolidation. No suspicious pulmonary nodule s or masses. Minimal bilateral lower lobe atelectasis. AIRWAY: Patent and unremarkable.. HEART: Size within normal limits. No pericardial effusion. MEDIASTINUM: No gross evidence of adenopathy. VASCULATURE: No aortic aneurysm. Right chest wall Mediport catheter terminates in the right atrium. MUSCULOSKELETAL: No acute osseous abnormalities. Left shoulder prosthesis. Postsurgical changes of th e lower jaw. No suspicious osseous abnormalities. Partial visualization of lumbar fusion hardware and degenerative changes. SOFT TISSUES/LYMPH NODES: Unremarkable. LOWER NECK: No significant findings. UPPER ABDOMEN: Stable hepatic cysts with additional scattered subcentimeter hypodense that are too sm all to accurately characterize but likely represent cysts. Ill-defined 1.4 cm peripheral right hepati c lobe lesion (series 3, image 50) and inferior partially visualized 1.9 cm lesion (series 3, image 6 7). Redemonstration of small nodules measuring up to 7 mm adjacent to the gallbladder. These are seen on most recent CT but are new from prior examinations. Left renal sinus cysts. Hiatal hernia contain ing fat. IMPRESSION: * No evidence of metastatic disease within the chest. * Few ill-defined small lesions demonstrated within the liver which are stable from most recent exam but new from prior examinations. The remaining subcentimeter hypodense lesions likely represent cyst s. Additional nodularity adjacent to the gallbladder is redemonstrated. These findings are suspicious for metastasis.
== END | disposition home or self-care (01) ==
LOC: RADCTMAIN 14:07
PROVIDERS: ATTEND Internal Medicine
DX: C18.7 Malignant neoplasm of sigmoid colon (principal)
CPT/HCPCS: 82565; 84520; 71260; J1642; Q9967

== ENCOUNTER 2022-06-02 | Inpatient (IN) | payer MEDICARE, OTHER ==
[2022-06-02] MEDS ORDERED: PANTOPRAZOLE 40 MG/10 ML VIAL IVP STA (02:39)
[2022-06-02] MEDS ORDERED: SODIUM CHLORIDE 0.9% 1,000 ML IV STA ×2 (02:39)
[2022-06-02] MEDS ORDERED: ONDANSETRON 4 MG/2 ML VIAL IVP STA (02:39)
[2022-06-02] MEDS ORDERED: HYDROmorphone 0.5 MG/0.5 ML SYRINGE IVP STA (02:39)
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
[2022-06-02 03:23] LABS: Albumin 4.2 g/dL (3.5-5.0); Calcium 9.2 mg/dL (8.4-10.2); Potassium 4.1 mmol/L (3.5-5.1); Total Bilirubin 0.2 mg/dL (0.2-1.3); Total Protein 7.6 g/dL (6.3-8.2)
--- NOTE | 2022-06-02 03:26 | XR ---
EXAMINATION TYPE: XR KUB DATE OF EXAM: 06/02/2022 COMPARISON: 04/15/2022 HISTORY: Abdominal pain TECHNIQUE: Single view FINDINGS: There is no sign of intestinal obstruction or pneumoperitoneum. Fecal pattern is normal. No evidence of a mass. There is multilevel lumbar spine posterior fusion surgery. IMPRESSION: Nonacute abdomen. No adverse change compared to old exam.
[2022-06-02 03:30] LABS: HCT 31.4 % (34.0-46.0); HGB 9.8 gm/dL (11.4-16.0); Hypochromasia Moderate; MCH 26.3 pg (25.0-35.0); MCHC 31.1 g/dL (31.0-37.0); MCV 84.5 fL (80.0-100.0); Mean Platelet Volume 7.3; Platelet Count 284 k/uL (150-450); RBC 3.71 m/uL (3.80-5.40); RDW 15.5 % (11.5-15.5); WBC 3.5 k/uL (3.8-10.6)
[2022-06-02] MEDS ORDERED: HYDROmorphone 1 MG/ML 1 ML SYRINGE IVP STA (04:02)
[2022-06-02 04:41] LABS: Eosinophils # (M) 0.07 k/uL (0-0.7); Lymphocytes # (M) 1.68 k/uL (1.0-4.8); Monocytes # (M) 0.46 k/uL (0-1.0); Neutrophils % (M) 37 %; Nucleated Red Blood Cells 0 /100 WBC (0-0); Total Cells Counted 100
[2022-06-02 04:42] LABS: Anisocytosis (M) Present; Ovalocytes Present
[2022-06-02] MEDS ORDERED: NALOXONE 0.4 MG/ML 1 ML VIAL IV PRN (05:03)
[2022-06-02] MEDS ORDERED: ONDANSETRON 4 MG/2 ML VIAL IVP PRN (05:03)
[2022-06-02] MEDS: SODIUM CHLORIDE 0.9% 1,000 ML IV SCH ×3 (05:57→20:18)
[2022-06-02] MEDS: HYDROmorphone 0.5 MG/0.5 ML SYRINGE IVP PRN ×4 (08:17→19:07)
[2022-06-02] MEDS: PANTOPRAZOLE 40 MG/10 ML VIAL IV SCH (08:18)
[2022-06-02] MEDS ORDERED: MELATONIN 5 MG TABLET PO PRN (09:24)
[2022-06-02] MEDS ORDERED: ACETAMINOPHEN TAB 500 MG TAB PO PRN (09:24)
[2022-06-02] MEDS ORDERED: SIMETHICONE 80 MG CHEWABLE PO PRN (09:24)
[2022-06-02] MEDS ORDERED: tiZANidine 4 MG TAB PO PRN (09:24)
[2022-06-02] MEDS ORDERED: ONDANSETRON ODT 8 MG TAB.RAPDIS PO PRN (09:24)
[2022-06-02] MEDS ORDERED: PROMETHAZINE 25 MG TAB PO PRN (09:26)
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
[2022-06-02] MEDS: METHADONE 10 MG TAB PO PRN ×3 (11:26→22:50)
[2022-06-02] MEDS: DICYCLOMINE 20 MG TAB PO SCH ×3 (13:00→20:15)
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
[2022-06-02] MEDS: LORazepam 0.5 MG TAB PO PRN ×2 (14:04→20:18)
[2022-06-02] MEDS: DEXTROSE 5%-0.9% NACL 1,000 ML IV SCH ×2 (16:58→20:21)
[2022-06-02] MEDS: oxyCODONE-APAP 10-325MG 1 EACH TAB PO PRN (19:07)
[2022-06-02] MEDS: MIRTAZAPINE 45 MG TABLET PO SCH (20:18)
[2022-06-02] MEDS: DULoxetine HCL 60 MG CAPSULE.DR PO SCH (20:18)
[2022-06-02] MEDS: busPIRone HCl 10 MG TAB PO SCH (20:18)
[2022-06-02] MEDS: MAGNESIUM OXIDE 400 MG TAB PO SCH (20:18)
[2022-06-02] MEDS: LATANOPROST 0.005% OPHTH DROPS 2.5 ML BTL BOTH EYES SCH (20:19)
[2022-06-02] MEDS: QUEtiapine 25 MG TAB PO SCH (20:19)
[2022-06-02] MEDS: FLUTICASONE 50MCG/SPRAY NASAL 16GM EA NOSTRIL SCH (20:59)
[2022-06-02] MEDS ORDERED: QUEtiapine 100 MG TAB PO SCH (21:00)
[2022-06-03] MEDS: HYDROmorphone 0.5 MG/0.5 ML SYRINGE IVP PRN ×5 (01:07→20:16)
[2022-06-03] MEDS: METHADONE 10 MG TAB PO PRN ×3 (04:08→17:27)
[2022-06-03] MEDS: oxyCODONE-APAP 10-325MG 1 EACH TAB PO PRN (05:30)
[2022-06-03] MEDS: SODIUM CHLORIDE 0.9% 1,000 ML IV SCH ×3 (05:31→23:02)
[2022-06-03] MEDS: ASPIRIN 81 MG PO SCH (08:31)
[2022-06-03] MEDS: QUEtiapine 25 MG TAB PO SCH ×2 (08:32→23:00)
[2022-06-03] MEDS: busPIRone HCl 10 MG TAB PO SCH ×2 (08:32→20:17)
[2022-06-03] MEDS: DICYCLOMINE 20 MG TAB PO SCH ×4 (08:33→20:22)
[2022-06-03] MEDS: PANTOPRAZOLE 40 MG/10 ML VIAL IV SCH (08:36)
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
[2022-06-03] MEDS: FLUTICASONE 50MCG/SPRAY NASAL 16GM EA NOSTRIL SCH ×2 (08:43→20:18)
[2022-06-03] MEDS: LORazepam 0.5 MG TAB PO PRN (08:48)
[2022-06-03 08:55] LABS: HCT 28.2 % (37.2-46.3); HGB 8.6 g/dL (12.0-15.0); MCH 25.6 pg (27.0-32.0); MCHC 30.5 g/dL (32.0-37.0); MCV 83.9 fL (80.0-97.0); Mean Platelet Volume 10.2 fL (9.5-12.2); NRBC Per 100 WBC 0 /100 WBCS (0.0-0.0); Platelet Count 256 X 10*3/uL (140-440); RBC 3.36 X 10*6/uL (4.10-5.20); RDW 15.6 % (11.5-14.5); WBC 2.92 X 10*3/uL (4.50-10.00)
[2022-06-03 09:29] LABS: ALT 14 U/L (8-44); AST 18 U/L (13-35); Albumin 3.8 g/dL (3.8-4.9); Albumin/Globulin Ratio 1.36 (1.60-3.17); Alkaline Phosphatase 90 U/L (41-126); BUN/Creat Ratio 12.11 Ratio (12.00-20.00); Bilirubin, Conjugated <0.20 mg/dL (0.20-0.40); Blood Urea Nitrogen 10.9 mg/dL (9.0-27.0); Calcium 8.6 mg/dL (8.7-10.3); Carbon Dioxide 26.6 mmol/L (20.0-27.5); Chloride 105 mmol/L (96-109); Globulin 2.8 g/dL (1.6-3.3); Glucose 114 mg/dL (70-110); Magnesium 2.7 mg/dL (1.5-2.4); Non-African American GFR(CKD) 60.4 (60.0-200.0); Potassium 4.7 mmol/L (3.5-5.5); Sodium 139 mmol/L (135-145); Total Bilirubin <0.15 mg/dL (0.30-1.20); Total Protein 6.6 g/dL (6.2-8.2)
[2022-06-03 09:55] LABS: Basophils # (A) 0.01 X 10*3/uL (0.00-0.10); Basophils % (A) 0.3 %; Eosinophils # (A) 0.04 X 10*3/uL (0.04-0.35); Eosinophils % (A) 1.4 %; Immature Grans, Automated 0.3 %; Lymphocytes % (A) 47.9 %; Monocytes # (A) 0.55 X 10*3/uL (0.20-1.00); Monocytes % (A) 18.8 %; Neutrophils # (A) 0.91 X 10*3/uL (1.80-7.70); Neutrophils % (A) 31.3 %
--- NOTE | 2022-06-03 10:56 | P.PN ---
Subjective Progress Note Date: 06/03/22 Principal diagnosis: Intractable pain The patient is an 82 year-old female with past medical history of GERD, fibromyalgia, hyperlipidemia, memory impairment, osteoarthritis, mini-seizure disorder, sleep apnea on CPAP/BiPAP, chronic back pain, glaucoma, falls, stomach and colon cancer with metastasis, partial colectomy,TIA x 2, bipolar depression, and panic attacks. She presented to the emergency department on 06/02/22 with complaints abdominal pain and nausea. She was recently in this facility 04/14- 04/21 for acute, chronic abdominal pain. The patient has been complaining of from epigastric abdominal pain for about a week, slightly progressive. Per emergency room documentation, she was sitting, bit but rated her pain as 10/10, nonspecific, nonradiating, she has had difficulty tolerating diet, but no vomiting. She had diarrhea very bad 2 days ago but is better now. She had a formed bowel movement the previous day. She is eating mainly ice chips. But has agreed to start liquid diet. She denied any chest pain or dyspnea. Vitals were stable and patient she was afebrile. WBC 3.5, hemoglobin 9.8. Rest of labs are unremarkable including CBC, BMP and liver enzymes. Lipase normal 50. KUB: Nonacute abdomen, no evidence of obstruction. On admission patient was given Dilaudid, Zofran and normal saline with oncology team consulted. The patient stated that she is on methadone for about 8-9 months and thus Dilaudid works better for her than the morphine. Her pain doctor is Dr. Alka Hernandez in [place]. 06/02 The patient is resting in bed and appears comfortable. Her is at the bedside. Education regarding palliative care philosophies and services provided. The patient states that she is full of life and is not ready to . Her goal is prolonged survival. She understands that chemotherapy is her only treatment option. She reports feeling terrible after her last cycle of chemotherapy. She had many side effects, but did not communicate them with her oncologist. She stated she did not know that they could help with the side effects. Her biggest concern was how the chemotherapy "brought her down and played with her head". She felt ill and had no energy. She was feeling as if the side effects were not worth the benefits of the chemotherapy. She reports that feeling that poorly physically was difficult for her to handle mentally and emotionally. She has a therapist, Ambreen, but has not seen her recently. She would like to continue her chemotherapy. She stated she just needed a break to work things mentally and feel better physically before starting the next cycle. She will follow up with oncology as an outpatient. She was encouraged to communicate with her oncologist about her side effects of chemotherapy so they c an treat them. She realizes that her "state of mind" may be making her symptoms worse. She agreed to make an appointment with her therapist as well and see her on a regular basis. Objective - Vital Signs Vital signs: Vital Signs Temp 98.2 F 06/03/22 07:07 Pulse 96 06/03/22 07:07 Resp 16 06/03/22 07:07 BP 156/82 06/03/22 07:07 Pulse Ox 96 06/03/22 02:30 FiO2 Intake & Output 06/02/22 06/03/22 06/03/22 18:59 06:59 18:59 Intake Total 900 1980 Balance 900 1980 Intake: Intake, IV Titration 900 900 Amount Dextrose 5%-0.9% NaCl 1, 900 000 ml @ 75 mls/hr IV . [id number] [facility] Rx#:[id number] Sodium Chloride 0.9% 1, 900 000 ml @ 130 mls/hr IV . Q7H42M [facility] Rx#:[id number] Oral 1080 Other: # Voids 1 2 - Exam General: Well developed, well nourished. No acute distress. HEENT: Head is atraumatic, normocephalic. Sclerae are clear. Pupils equal, round and reactive to light bilaterally. Mucus membranes moist. CV: Heart regular in rate and rhythm positive S1 and S2. No clicks, rubs or murmurs. Peripheral pulses equal. 2/4 Lungs: Clear to auscultation bilaterally. No wheezes rales or rhonchi. Respirations even and nonlabored. On RA Abdomen/GI: Soft. Bowel sounds present in all 4 quadrants.No guarding, rigidity, + mild abdominal tenderness. Musculoskeletal/ Extremities: CLARK, no joint deformity or swelling. No gross atrophy. Vascular: Radial pulses equal. 2/4. No peripheral edema. Skin: Warm and dry, No rash or lesions. Neurologic: Awake, alert and oriented times 3. CN II-XII grossly intact. No focal deficits. Psychiatric: Appropriate mood and affect. - Labs CBC & Chem 7: 06/03/22 05:51 06/03/22 05:51 Labs: Abnormal Lab Results - Last 24 Hours (Table) 06/03/22 06/03/22 Range/Units 05:51 05:51 WBC 2.92 L (4.50-10.00) X 10*3/uL RBC 3.36 L (4.10-5.20) X 10*6/uL Hgb 8.6 L (12.0-15.0) g/dL Hct 28.2 L (37.2-46.3) % MCH 25.6 L (27.0-32.0) pg MCHC 30.5 L (32.0-37.0) g/dL RDW 15.6 H (11.5-14.5) % Neutrophils # 0.91 L (1.80-7.70) X 10*3/uL Anion Gap 7.40 L (10.00-18.00) mmol/L Glucose 114 H (70-110) mg/dL Calcium 8.6 L (8.7-10.3) mg/dL Magnesium 2.7 H (1.5-2.4) mg/dL Total Bilirubin <0.15 L (0.30-1.20) mg/dL Conjugated Bilirubin <0.20 L (0.20-0.40) mg/dL Albumin/Globulin Ratio 1.36 L (1.60-3.17) g/dL Assessment and Plan Assessment: Symptoms * Pain - 5/10 abdominal pain. Continue Dilaudid, Tylenol, Methadone, and Percocet * Fatigue - + decreased energy level post chemotherapy * SOB - No * Insomnia - Yes, continue Remeron and Melatonin * N/V - Yes - improved. Continue Zofran and Phenergan * Anxiety - Yes, Continue Buspar, Ativan * Depression - Yes, continue Cymbalta and Seroquel * Confusion - No * Agitation - No * Hallucinations - No * Appetite/weight loss - + decreased appetite 2/2 nausea. Continue clear liquid diet * Dysphagia - No * Constipation - No LBM 9/2, c/o diarrhea today * Incontinence - No * Itch - No Plan: Summary/Goals - The patient is awake and lying in bed. She states that she feels "much better today". Her abdominal pain is better today, but she is feeling very nervous and anxious. She is very concerned about how she is going to get her pain medication once discharged. She told several different stories as to why she is not going to continue going to the pain clinic in [place]. She stated that it is to long of a ride for her and she has found a pain clinic here in [place] but, they cannot see her until 06/29. At one point she stated that they would not see her any more at the [facility]. She stated that she went to her PCP and he would not prescribe enough of her Percocet and refused to prescribe her Methadone. She stated she is out of Methadone completely which is why her pain is now out of control and caused her to come to the emergency room. She feels better because she has been taking Methadone while admitted in the hospital. She is interested in palliative care as outpatient because she wants help controlling her pain. She was informed that palliative care would not be managing her pain medication, she would have to go to the new pain clinic and sign a contract with them. She then asked if palliative care could help manage her anxiety. She was informed that palliative care is focused on symptom management but, in her case her pain and anxiety should be managed by specialists. She was instructed to follow up with psychiatry for anxiety management. Code status was discussed in detail. The patient would like to remain a full code. Recommendations - Follow up as outpatient with oncology, pain clinic, and psychiatry. Continue current pain regimen. Advanced Directives - No Code Status - Full code Thank you for this consult Estela Dowling [facility] Palliative Care [facility] [id number] Email: [email or web address] Time with Patient: Greater than 30
[2022-06-03] MEDS: DEXTROSE 5%-0.9% NACL 1,000 ML IV SCH (15:28)
--- NOTE | 2022-06-03 19:55 | P.PN ---
Subjective Progress Note Date: 06/03/22 Metastatic Cancer admitted for acute on chronic pain Objective - Vital Signs Vital signs: Vital Signs Temp 98.2 F 06/03/22 07:07 Pulse 96 06/03/22 07:07 Resp 16 06/03/22 07:07 BP 156/82 06/03/22 07:07 Pulse Ox 96 06/03/22 02:30 FiO2 Intake & Output 06/02/22 06/03/22 06/03/22 18:59 06:59 18:59 Intake Total 900 1979 Balance 900 1979 Intake: Intake, IV Titration 900 900 Amount Dextrose 5%-0.9% NaCl 1, 900 000 ml @ 75 mls/hr IV . [id number] [facility] Rx#:[id number] Sodium Chloride 0.9% 1, 900 000 ml @ 130 mls/hr IV . Q7H42M [facility] Rx#:[id number] Oral 1080 Other: # Voids 1 2 - Exam - Constitutional General appearance: average body habitus, no acute distress - EENT Eyes: EOMI - Respiratory Respiratory: bilateral: CTA - Cardiovascular Rhythm: regular - Gastrointestinal Mild tenderness to palpation diffusely without rebound or guarding General gastrointestinal: normal bowel sounds, soft - Neurologic Neurologic: CNII-XII intact - Labs CBC & Chem 7: 06/03/22 05:51 06/03/22 05:51 Labs: Abnormal Lab Results - Last 24 Hours (Table) 06/03/22 06/03/22 Range/Units 05:51 05:51 WBC 2.92 L (4.50-10.00) X 10*3/uL RBC 3.36 L (4.10-5.20) X 10*6/uL Hgb 8.6 L (12.0-15.0) g/dL Hct 28.2 L (37.2-46.3) % MCH 25.6 L (27.0-32.0) pg MCHC 30.5 L (32.0-37.0) g/dL RDW 15.6 H (11.5-14.5) % Neutrophils # 0.91 L (1.80-7.70) X 10*3/uL Anion Gap 7.40 L (10.00-18.00) mmol/L Glucose 114 H (70-110) mg/dL Calcium 8.6 L (8.7-10.3) mg/dL Magnesium 2.7 H (1.5-2.4) mg/dL Total Bilirubin <0.15 L (0.30-1.20) mg/dL Conjugated Bilirubin <0.20 L (0.20-0.40) mg/dL Albumin/Globulin Ratio 1.36 L (1.60-3.17) g/dL Assessment and Plan Plan: scan - abdomen: report reviewed (No evidence of obstruction) Assessment and Plan Assessment: Ms. Christine is an 82 year old woman with a PMHx significant for diverticulitis s/p partial colectomy, TIA x 2, bipolar disorder, and SLE who received 1 cycle of FOLFOX for metastatic colon cancer (metastases to peritoneal wall, right fallopian tube, ovary) s/p LAR and right fallopian tube/ovary resection on 04/01/22 who presents for abdominal pain. 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 I appreciate their assistance Palliative care is appropriate to follow inpatient and outpatient with her chronic pain issues - Since her pain does not appear to be a complication of her malignancy, lucila drew should not be the primary provider for her chronic pain management - We do feel her psychiatric history could be exacerbating underlying chronic pain issues. Recommend Psych consult and ongoing follow-up Continue supportive care per primary team
[2022-06-03] MEDS: MIRTAZAPINE 45 MG TABLET PO SCH (20:17)
[2022-06-03] MEDS: DULoxetine HCL 60 MG CAPSULE.DR PO SCH (20:17)
[2022-06-03] MEDS: MAGNESIUM OXIDE 400 MG TAB PO SCH (20:17)
[2022-06-03] MEDS: LATANOPROST 0.005% OPHTH DROPS 2.5 ML BTL BOTH EYES SCH (20:18)
[2022-06-04] MEDS: HYDROmorphone 0.5 MG/0.5 ML SYRINGE IVP PRN ×6 (00:15→17:23)
[2022-06-04] MEDS: oxyCODONE-APAP 10-325MG 1 EACH TAB PO PRN ×3 (01:31→14:19)
[2022-06-04] MEDS: METHADONE 10 MG TAB PO PRN ×2 (02:51→12:45)
[2022-06-04] MEDS: DEXTROSE 5%-0.9% NACL 1,000 ML IV SCH ×2 (06:36→15:18)
[2022-06-04] MEDS: SODIUM CHLORIDE 0.9% 1,000 ML IV SCH ×2 (06:36→14:20)
[2022-06-04] MEDS: busPIRone HCl 10 MG TAB PO SCH (08:15)
[2022-06-04] MEDS: QUEtiapine 25 MG TAB PO SCH (08:15)
[2022-06-04] MEDS: DICYCLOMINE 20 MG TAB PO SCH ×3 (08:15→16:17)
[2022-06-04] MEDS: ASPIRIN 81 MG PO SCH (08:15)
[2022-06-04] MEDS: PANTOPRAZOLE 40 MG/10 ML VIAL IV SCH (08:16)
[2022-06-04] MEDS: FLUTICASONE 50MCG/SPRAY NASAL 16GM EA NOSTRIL SCH (08:21)
[2022-06-04 08:25] VITALS: RESP 17
[2022-06-04] MEDS: LORazepam 0.5 MG TAB PO PRN ×2 (11:11→17:23)
--- NOTE | 2022-06-04 14:16 | P.PN ---
Subjective Progress Note Date: 06/03/22 82 years old female with past medical history of GERD, fibromyalgia, hyperlipidemia, memory impairment, osteoarthritis, mini-seizure disorder, sleep apnea on CPAP/BiPAP, CVA/TIA , Chronic back pain, glaucoma, falls, stomach and colon cancer with metastasis, history of back surgery. Bipolar depression and panic attacks. Patient presents because of abdominal pain. She was recently in this facility 04/14-04/21 for acute, chronic abdominal pain patient follow-up with her oncologist Dr. Strauss she met him about 2 days ago and informed her that her cancer has metastasized to the stomach area. Patient has been complaining of from epigastric abdominal pain for about a week, slightly progressive. She is sitting, bit but rates her pain as 10/10, nonspecific, nonradiating, she has difficulty tolerating diet but no vomiting. She had diarrhea very bad 2 days ago but is better now. She has a formed bowel movement yesterday. She is eating mainly ice chips. But she agrees to start liquid diet today. no chest pain or dyspnea. Vitals are stable and patient is afebrile. WBC 3.5, hemoglobin 9.8. Rest of labs are unremarkable including CBC, BMP and liver enzymes. Lipase normal 50. KUB: Nonacute abdomen On admission patient was given Dilaudid, Zofran and normal saline with oncology team consulted patient states that she is on methadone for about 8-9 months and thus works better for her than the morphine. Her pain doctor is Dr. Alka Hernandez in [place]. Objective - Vital Signs Vital signs: Vital Signs Temp 98.4 F 06/03/22 13:09 Pulse 94 06/03/22 13:09 Resp 16 06/03/22 13:09 BP 122/71 06/03/22 13:09 Pulse Ox 96 06/03/22 13:09 FiO2 Intake & Output 06/02/22 06/03/22 06/03/22 18:59 06:59 18:59 Intake Total 900 1979 Balance 900 1979 Intake: Intake, IV Titration 900 900 Amount Dextrose 5%-0.9% NaCl 1, 900 000 ml @ 75 mls/hr IV . [id number] FLAVIO Rx#:[id number] Sodium Chloride 0.9% 1, 900 000 ml @ 130 mls/hr IV . Q7H42M FLAVIO Rx#:[id number] Oral 1080 Other: # Voids 1 2 - Exam GENERAL: The patient is alert and oriented x3, not in any acute distress. Well developed, well nourished. HEENT: Pupils are round and equally reacting to light. EOMI. No scleral icterus. No conjunctival pallor. Normocephalic, atraumatic. No pharyngeal erythema. No thyromegaly. CARDIOVASCULAR: S1 and S2 present. No murmurs, rubs, or gallops. PULMONARY: Chest is clear to auscultation, no wheezing or crackles. ABDOMEN: Soft, nontender, nondistended, normoactive bowel sounds. No palpable o rganomegaly. MUSCULOSKELETAL: No joint swelling or deformity. EXTREMITIES: No cyanosis, clubbing, or pedal edema. NEUROLOGICAL: Gross neurological examination did not reveal any focal deficits. SKIN: No rashes. no petechiae. - Labs CBC & Chem 7: 06/03/22 05:51 06/03/22 05:51 Labs: Abnormal Lab Results - Last 24 Hours (Table) 06/03/22 06/03/22 Range/Units 05:51 05:51 WBC 2.92 L (4.50-10.00) X 10*3/uL RBC 3.36 L (4.10-5.20) X 10*6/uL Hgb 8.6 L (12.0-15.0) g/dL Hct 28.2 L (37.2-46.3) % MCH 25.6 L (27.0-32.0) pg MCHC 30.5 L (32.0-37.0) g/dL RDW 15.6 H (11.5-14.5) % Neutrophils # 0.91 L (1.80-7.70) X 10*3/uL Anion Gap 7.40 L (10.00-18.00) mmol/L Glucose 114 H (70-110) mg/dL Calcium 8.6 L (8.7-10.3) mg/dL Magnesium 2.7 H (1.5-2.4) mg/dL Total Bilirubin <0.15 L (0.30-1.20) mg/dL Conjugated Bilirubin <0.20 L (0.20-0.40) mg/dL Albumin/Globulin Ratio 1.36 L (1.60-3.17) g/dL Assessment and Plan Assessment: Acute on chronic epigastric abdominal pain. Most likely related to her m etastatic colon cancer Colon cancer with metastasis Hyperlipidemia History of GERD Chronic diarrhea Fibromyalgia History of memory impairment History of mini seizure, currently not on seizure medication History of sleep apnea, not on CPAP History of CVA/TIA Chronic back pain status post surgery History of liver, History of falls History of stomach and colon cancer Plan: This is a pleasant 82 years old female who presents with abdominal pain continue with bowel rest unchanged diet to liquids for now Continue with gentle hydration and pain management Oncology team consult Labs and medication were reviewed.. Continue same treatment. Continue with symptomatic treatment. Resume home medication. Monitor lytes and vitals. DVT and GI prophylaxis. Further recommendations as per clinical course of the patient DVT prophylaxis: Subcutaneous heparin GI Prophylaxis: Pepcid PT/OT: Pending Prognosis is guarded
[2022-06-04 15:36] VITALS: BP 161/83; PULSE 95; TEMP 98.1
--- NOTE | 2022-06-04 20:48 | P.DS ---
Providers Date of admission: 06/02/22 05:03 Expected date of discharge: 06/04/22 Attending physician: Hector Hlal Consults: 06/02/22 05:03 Consult Physician Routine Consulting Provider: Fernando Strauss Consult Reason/Comments: known Do you want consulting provider notified?: Yes 06/02/22 12:22 Consult to Palliative Care Routine Consulting Provider: Esetla Dowling Consult Reason/Comments: Patient interested in discussing palliative care for metastatic CRC Do you want consulting provider notified?: Yes Primary care physician: Hill Mata [facility] Course: 82 years old female with past medical history of GERD, fibromyalgia, hyperlipidemia, memory impairment, osteoarthritis, mini-seizure disorder, sleep apnea on CPAP/BiPAP, CVA/TIA , Chronic back pain, glaucoma, falls, stomach and colon cancer with metastasis, history of back surgery. Bipolar depression and panic attacks. Patient presents because of abdominal pain. She was recently in this facility 04/14-04/21 for acute, chronic abdominal pain patient follow-up with her oncologist Dr. Strauss she met him about 2 days ago and informed her that her cancer has metastasized to the stomach area. Patient has been complaining of from epigastric abdominal pain for about a week, slightly progressive. She is sitting, bit but rates her pain as 10/10, nonspecific, nonradiating, she has difficulty tolerating diet but no vomiting. She had diarrhea very bad 2 days ago but is better now. She has a formed bowel movement yesterday. She is eating mainly ice chips. But she agrees to start liquid diet today. no chest pain or dyspnea. Vitals are stable and patient is afebrile. WBC 3.5, hemoglobin 9.8. Rest of labs are unremarkable including CBC, BMP and liver enzymes. Lipase normal 50. KUB: Nonacute abdomen On admission patient was given Dilaudid, Zofran and normal saline with oncology team consulted patient states that she is on methadone for about 8-9 months and thus works better for her than the morphine. Her pain doctor is Dr. Alka Hernandez in [place]. Patient denies being on seizure medication she states she had absence seizure but not currently Acute on chronicepigastric abdominal pain. Most likely related to her metastatic colon cancer Colon cancer with metastasis Hyperlipidemia History of GERD Chronic diarrhea Fibromyalgia History of memory impairment History of mini seizure, currently not on seizure medication History of sleep apnea, not on CPAP History of CVA/TIA Chronic back pain status post surgery History of liver, History of falls History of stomach and colon cancer Plan: This is a pleasant 82 years old female who presents with abdominal pain continue with bowel rest unchanged diet to liquids for now Continue with gentle hydration and pain management Oncology team consult Labs and medication were reviewed.. Continue same treatment. Continue with symptomatic treatment. Resume home medication. Monitor lytes and vitals. DVT and GI prophylaxis. Further recommendations as per clinical course of the patient DVT prophylaxis: Subcutaneous heparin GI Prophylaxis: Pepcid PT/OT: Pending Patient and family decided for hospice care Patient Condition at Discharge: Fair Plan - Discharge Summary Discharge Rx Participant: No New Discharge Prescriptions: Continue Latanoprost/Pf [Latanoprost 0.005% Eye Drop] 1 drop BOTH EYES HS Pantoprazole [Protonix] 40 mg PO DAILY tiZANidine [Zanaflex] 4 mg PO HS PRN PRN Reason: Muscle Pain Aspirin EC [Ecotrin Low Dose] 81 mg PO DAILY Magnesium 500 mg PO HS Acetaminophen Tab [Tylenol] 500 mg PO Q6H PRN #30 tablet PRN Reason: Pain LORazepam [Ativan] 0.5 mg PO QID PRN PRN Reason: Anxiety Fluticasone Nasal [place] [Flonase Nasal [place]] 1 spray EA NOSTRIL BID Melatonin [Melatonin Dissolving Tablet] 10 mg PO HS oxyCODONE-APAP 10-325MG [Percocet 10-325 mg] 1 tab PO QID PRN #0 PRN Reason: Pain Methadone [Dolophine] 10 mg PO TID PRN PRN Reason: Pain Mirtazapine 45 mg PO HS busPIRone HCl [Buspar] 10 mg PO BID DULoxetine HCL [Cymbalta] 60 mg PO HS QUEtiapine [SEROquel] 100 mg PO BID Dicyclomine [Bentyl] 20 mg PO QID #120 tablet Simethicone [Gas-X] 125 mg PO AC-TID PRN #20 capsule PRN Reason: Pain Ondansetron Odt [Zofran ODT] 8 mg PO Q8HR PRN PRN Reason: Nausea Discharge Medication List Latanoprost/Pf [Latanoprost 0.005% Eye Drop] 1 drop BOTH EYES HS 08/28/19 [History] Pantoprazole [Protonix] 40 mg PO DAILY 04/30/20 [History] tiZANidine [Zanaflex] 4 mg PO HS PRN 02/13/21 [History] Methadone [Dolophine] 10 mg PO TID PRN 08/25/21 [History] Mirtazapine 45 mg PO HS 08/25/21 [History] Aspirin EC [Ecotrin Low Dose] 81 mg PO DAILY 11/02/21 [History] DULoxetine HCL [Cymbalta] 60 mg PO HS 11/02/21 [History] Magnesium 500 mg PO HS 11/02/21 [History] busPIRone HCl [Buspar] 10 mg PO BID 11/02/21 [History] QUEtiapine [SEROquel] 100 mg PO BID 02/18/22 [History] Dicyclomine [Bentyl] 20 mg PO QID #120 tablet 02/20/22 [Rx] Acetaminophen Tab [Tylenol] 500 mg PO Q6H PRN #30 tablet 04/05/22 [Rx] Simethicone [Gas-X] 125 mg PO AC-TID PRN #20 capsule 04/05/22 [Rx] Fluticasone Nasal [place] [Flonase Nasal [place]] 1 spray EA NOSTRIL BID 04/15/22 [History] LORazepam [Ativan] 0.5 mg PO QID PRN 04/15/22 [History] Melatonin [Melatonin Dissolving Tablet] 10 mg PO HS 04/19/22 [History] oxyCODONE-APAP 10-325MG [Percocet 10-325 mg] 1 tab PO QID PRN #0 04/21/22 [Rx] Ondansetron Odt [Zofran ODT] 8 mg PO Q8HR PRN 06/02/22 [History] Follow up Appointment(s)/Referral(s): Hill Mata MD [Primary Care Provider] - 1-2 days [facility] Visiting Nurse, [NON-STAFF] - As Needed Activity/Diet/Wound Care/Special Instructions: Patient going home with [facility]. Discharge Disposition: HOME WITH HOSPICE
== END 2022-06-04 17:56 | disposition hospice, home (50) | DRG 948 ==
LOC: EC → 4SSUR 05:03
PROVIDERS: ADMIT Hospitalist; ATTEND Hospitalist
DX: G89.3 Neoplasm related pain (acute) (chronic) (principal); C16.9 Malignant neoplasm of stomach, unspecified; C18.9 Malignant neoplasm of colon, unspecified; F31.30 Bipolar disorder, current episode depressed, mild or moderate severity, unspecified; C79.82 Secondary malignant neoplasm of genital organs; Z51.5 Encounter for palliative care; E78.5 Hyperlipidemia, unspecified; K21.9 Gastro-esophageal reflux disease without esophagitis; K52.9 Noninfective gastroenteritis and colitis, unspecified; M79.7 Fibromyalgia; M54.9 Dorsalgia, unspecified; Z91.81 History of falling; F41.0 Panic disorder [episodic paroxysmal anxiety]; G40.909 Epilepsy, unspecified, not intractable, without status epilepticus; D64.9 Anemia, unspecified; G47.00 Insomnia, unspecified; K59.00 Constipation, unspecified; M32.9 Systemic lupus erythematosus, unspecified; T45.1X5A Adverse effect of antineoplastic and immunosuppressive drugs, initial encounter; Z79.82 Long term (current) use of aspirin; Z79.899 Other long term (current) drug therapy; Z82.49 Family history of ischemic heart disease and other diseases of the circulatory system; Z85.038 Personal history of other malignant neoplasm of large intestine; Z86.73 Personal history of transient ischemic attack (TIA), and cerebral infarction without residual deficits; Z87.11 Personal history of peptic ulcer disease; Z87.19 Personal history of other diseases of the digestive system; Z87.891 Personal history of nicotine dependence; Z90.49 Acquired absence of other specified parts of digestive tract; Z90.710 Acquired absence of both cervix and uterus; Z96.612 Presence of left artificial shoulder joint; Z96.653 Presence of artificial knee joint, bilateral; Z88.5 Allergy status to narcotic agent; Z88.6 Allergy status to analgesic agent; Z88.7 Allergy status to serum and vaccine; Z98.42 Cataract extraction status, left eye; Z98.41 Cataract extraction status, right eye; X58.XXXA Exposure to other specified factors, initial encounter
CPT/HCPCS: 36415; 74018; 80048; 80053; 80076; 82150; 83690; 83735; 85025; 96361; 96374; 96375; 96376; 99285

== ENCOUNTER 2022-07-31 18:14 | Observation (INO) | payer MEDICARE, OTHER ==
[2022-07-31] MEDS ORDERED: MORPHINE SULFATE 4 MG/ML SYRINGE IV STA (19:11)
[2022-07-31] MEDS ORDERED: SODIUM CHLORIDE 0.9% 1,000 ML IV STA (19:11)
[2022-07-31] MEDS ORDERED: FAMOTIDINE 20 MG/2 ML VIAL IV STA (19:12)
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
[2022-07-31 19:53] LABS: Basophils # (A) 0.1 k/uL (0-0.2); Basophils % (A) 1 %; Eosinophils # (A) 0.1 k/uL (0-0.7); Eosinophils % (A) 2 %; HCT 29.8 % (34.0-46.0); HGB 9.2 gm/dL (11.4-16.0); Hypochromasia Marked; Lymphocytes # (A) 1.5 k/uL (1.0-4.8); Lymphocytes % (A) 37 %; MCH 24.6 pg (25.0-35.0); Mean Platelet Volume 7.7; Monocytes # (A) 0.3 k/uL (0-1.0); Monocytes % (A) 8 %; Neutrophils # (A) 1.9 k/uL (1.3-7.7); Neutrophils % (A) 48 %; Platelet Count 263 k/uL (150-450); RBC 3.76 m/uL (3.80-5.40); RDW 15.2 % (11.5-15.5)
[2022-07-31 20:12] LABS: Albumin 3.9 g/dL (3.5-5.0); Calcium 8.8 mg/dL (8.4-10.2); Potassium 4.1 mmol/L (3.5-5.1); Total Bilirubin 0.2 mg/dL (0.2-1.3); Total Protein 7.2 g/dL (6.3-8.2)
[2022-07-31 20:28] LABS: INR 0.9 (<1.2); Prothrombin Time 10.4 sec (9.0-12.0)
--- NOTE | 2022-07-31 20:33 | CT ---
EXAMINATION TYPE: CT abdomen pelvis w con DATE OF EXAM: 07/31/2022 COMPARISON: 04/14/2022 HISTORY: abdominal pain. hx of stomach ca CT DLP: 1077.1 mGycm Automated exposure control for dose reduction was used. CONTRAST: Performed with IV Contrast, patient injected with 100ml mL of Isovue 300. Images obtained from the diaphragm to the floor the pelvis with IV contrast. There is mild subsegmental atelectasis at the lung bases. Heart size is normal. No pericardial effusi on. No pleural effusion. There are multiple small cysts in the liver that measure up to 1 cm. There is mildly dilated biliary tree. Gallbladder is intact. Spleen is intact. No pancreatic mass. The stomach is intact. There is no adrenal mass. Kidneys show satisfactory contrast opacification. No hydronephrosis. There is 3 cm left renal parapelvic cyst. The ureters are not dilated. There is minimal artifact from multi level lumbar spine posterior fusion surgery. Bladder distends smoothly. Previous surgery on the sigmo id colon. The bony pelvis is intact. The hip joints are intact. There is no free fluid in the pelvis. No mesenteric edema. No ascites or free air. No bowel obstruction. 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 There is apparent hystere ctomy. There is retained fecal material in the right colon. IMPRESSION: Previous surgery. Right ovarian cyst. Unchanged. There is slight increased size of the biliary tree compared to old exam and distal common bile duct o bstruction is suspected. No obstructing lesion seen.
[2022-07-31 20:36] LABS: MCV 79.3 fL (80.0-100.0)
[2022-07-31] MEDS ORDERED: HYDROmorphone 1 MG/ML 1 ML SYRINGE IVP STA (20:51)
[2022-07-31 21:12] VITALS: RESP 16
[2022-07-31 22:09] VITALS: BP 134/81; PULSE 89; TEMP 98.5
== END 2022-07-31 23:11 | disposition hospice, home (50) ==
LOC: EC 18:14 → 5NMEDONC 20:51
PROVIDERS: ADMIT Internal Medicine; ATTEND Internal Medicine
DX: R10.9 Unspecified abdominal pain (principal); C18.9 Malignant neoplasm of colon, unspecified; K21.9 Gastro-esophageal reflux disease without esophagitis; E78.5 Hyperlipidemia, unspecified; G40.909 Epilepsy, unspecified, not intractable, without status epilepticus; G47.30 Sleep apnea, unspecified; M79.7 Fibromyalgia; M54.9 Dorsalgia, unspecified; G89.29 Other chronic pain; F41.0 Panic disorder [episodic paroxysmal anxiety]; F31.9 Bipolar disorder, unspecified; F32.A Depression, unspecified; K76.89 Other specified diseases of liver; J98.11 Atelectasis; N83.201 Unspecified ovarian cyst, right side; Z90.710 Acquired absence of both cervix and uterus; Z98.51 Tubal ligation status; Z96.653 Presence of artificial knee joint, bilateral; Z96.612 Presence of left artificial shoulder joint; Z87.891 Personal history of nicotine dependence; Z79.899 Other long term (current) drug therapy; Z79.82 Long term (current) use of aspirin; Z88.8 Allergy status to other drugs, medicaments and biological substances; Z86.73 Personal history of transient ischemic attack (TIA), and cerebral infarction without residual deficits; Z82.49 Family history of ischemic heart disease and other diseases of the circulatory system; Z80.9 Family history of malignant neoplasm, unspecified
CPT/HCPCS: 96374; 96375; 99285; 36415; 80053; 82150; 83690; 85025; 85610; 85730; 74177; G0378; J2270; J1170; Q9967

== ENCOUNTER 2022-09-02 05:56 | Inpatient (IN) | payer MEDICAID, MEDICARE ==
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
[2022-09-02 06:45] LABS: ALT 20 U/L (4-34); AST 48 U/L (14-36); African American GFR (CKD) >90 (>60 ml/min/1.73 sqM); Albumin 3.8 g/dL (3.5-5.0); Alkaline Phosphatase 96 U/L (38-126); Anion Gap 5 mmol/L; Blood Urea Nitrogen 20 mg/dL (7-17); Calcium 8.5 mg/dL (8.4-10.2); Carbon Dioxide 34 mmol/L (22-30); Chloride 95 mmol/L (98-107); Glucose 114 mg/dL (74-99); Non-African American GFR(CKD) 83 (>60 ml/min/1.73 sqM); Potassium 4.9 mmol/L (3.5-5.1); Sodium 134 mmol/L (137-145); Total Bilirubin 0.6 mg/dL (0.2-1.3); Total Protein 6.8 g/dL (6.3-8.2)
[2022-09-02 06:50] LABS: INR 0.9 (<1.2); Prothrombin Time 9.8 sec (9.0-12.0)
[2022-09-02 07:11] LABS: Anisocytosis Slight; Basophils % (A) 0 %; Eosinophils # (A) 0.1 k/uL (0-0.7); Eosinophils % (A) 1 %; HGB 10.6 gm/dL (11.4-16.0); Hypochromasia Marked; Lymphocytes # (A) 1.2 k/uL (1.0-4.8); Lymphocytes % (A) 15 %; MCH 23.7 pg (25.0-35.0); MCHC 30.4 g/dL (31.0-37.0); MCV 78.1 fL (80.0-100.0); Mean Platelet Volume 8.9; Microcytosis Slight; Monocytes # (A) 0.4 k/uL (0-1.0); Monocytes % (A) 6 %; Neutrophils # (A) 5.9 k/uL (1.3-7.7); Neutrophils % (A) 75 %; Platelet Count 187 k/uL (150-450); RBC 4.48 m/uL (3.80-5.40); RDW 16.4 % (11.5-15.5); WBC 7.8 k/uL (3.8-10.6)
[2022-09-02] MEDS ORDERED: NALOXONE 0.4 MG/ML 1 ML VIAL IV PRN (07:12)
[2022-09-02] MEDS ORDERED: ONDANSETRON 4 MG/2 ML VIAL IVP PRN (07:12)
[2022-09-02] MEDS ORDERED: HYDROmorphone 1 MG/ML 1 ML SYRINGE IVP STA (09:32)
[2022-09-02] MEDS: PANTOPRAZOLE 40 MG/10 ML VIAL IV SCH (10:02)
[2022-09-02] MEDS ORDERED: ACETAMINOPHEN TAB 500 MG TAB PO PRN (13:43)
[2022-09-02] MEDS ORDERED: PROCHLORPERAZINE 10 MG TAB PO PRN (13:43)
[2022-09-02] MEDS ORDERED: bisacodyL 10 MG SUPP RECTAL PRN (13:43)
[2022-09-02] MEDS ORDERED: DICYCLOMINE 10 MG CAP PO PRN (13:43)
[2022-09-02] MEDS ORDERED: ONDANSETRON ODT 8 MG TAB.RAPDIS PO PRN (13:43)
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
[2022-09-02] MEDS ORDERED: IBUPROFEN 600 MG TAB PO PRN (16:00)
[2022-09-02] MEDS: busPIRone HCl 10 MG TAB PO SCH (21:20)
[2022-09-02] MEDS: MIRTAZAPINE 45 MG TABLET PO SCH (21:21)
[2022-09-02] MEDS: dexAMETHasone 4 MG TAB PO SCH (21:21)
[2022-09-02] MEDS: MAGNESIUM OXIDE 400 MG TAB PO SCH (21:21)
[2022-09-02] MEDS: MELATONIN 5 MG TABLET PO SCH (21:21)
[2022-09-02] MEDS: SENNOSIDES-DOCUSATE SODIUM 1 EACH TAB PO SCH (21:21)
[2022-09-02] MEDS: DULoxetine HCL 60 MG CAPSULE.DR PO SCH (21:21)
[2022-09-02] MEDS: LATANOPROST 0.005% OPHTH DROPS 2.5 ML BTL BOTH EYES SCH (21:21)
[2022-09-02] MEDS: HYDROmorphone (PF) 100 MG in SODIUM CHLORIDE 0.9% 90 ML IV SCH (21:29)
[2022-09-03] MEDS: HYDROmorphone (PF) 100 MG in SODIUM CHLORIDE 0.9% 90 ML IV SCH ×3 (05:37→21:02)
[2022-09-03] MEDS ORDERED: PANTOPRAZOLE 40 MG TABLET PO SCH (09:00)
[2022-09-03] MEDS: dexAMETHasone 4 MG TAB PO SCH ×2 (09:20→20:29)
[2022-09-03] MEDS: PANTOPRAZOLE 40 MG/10 ML VIAL IV SCH (09:20)
[2022-09-03] MEDS: SENNOSIDES-DOCUSATE SODIUM 1 EACH TAB PO SCH ×2 (09:20→20:36)
[2022-09-03] MEDS: ASPIRIN 81 MG PO SCH (09:20)
[2022-09-03] MEDS: busPIRone HCl 10 MG TAB PO SCH ×2 (09:20→20:29)
--- NOTE | 2022-09-03 13:36 | P.PN ---
Subjective Progress Note Date: 09/03/22 This is an 82-year-old female who follows with Dr. Mata in the outpatient setting has been recently hospitalized multiple times for failure of outpatient pain management as patient is signed on with [facility]. Patient with a past medical history of stage IV colon cancer this past April. Patient did attempt one round of chemotherapy unable to tolerate. Patient was brought here for shortness of breath and altered mental status and poor pain management. [facility] is following and patient meets criteria for inpatient GIP services. Patient had been being given phenobarbital although becoming more altered and lethargic and family wanted this discontinued. Labs on exam were reviewed and within normal limits and hemoglobin is 10.6, BMP within normal limits. Vital signs are stable and patient is maintained on 4 L via nasal cannula at 96% oxygen saturation. Home medications were resumed and patient made inpatient hospice. Per family CODE STATUS was addressed and agree with no code per [facility] nurse. 09/03/2022 Patient is seen in follow up today and per family request, dilaudid drip being turned down as they wish to have their mother more coherent. Patient continues to moan and wax and wain at times otherwise lethargic and sleeping. [facility] following. Patient is afebrile and not eating or drinking much. Recommend aspiration precautions. Continued on 3-4 L via NC. Review of systems: unable to obtain as patient is lethargic PHYSICAL EXAMINATION: GENERAL: The patient is sleeping, patient is confused and lethargic. Well developed, well nourished. HEENT: Pupils are round and equally reacting to light. EOMI. no scleral icterus. No conjunctival pallor. Normocephalic, atraumatic. No pharyngeal erythema. No thyromegaly. CARDIOVASCULAR: S1 and S2 muffled PULMONARY: diminished breath sounds bilaterally with no wheezing and some scattered rhonchi noted. ABDOMEN: soft. tender on exam. obese. non-distended, normoactive bowel sounds. No palpable organomegaly. MUSCULOSKELETAL: No joint swelling or deformity. EXTREMITIES: No cyanosis, clubbing, or pedal edema. NEUROLOGICAL: Gross neurological examination did not reveal any focal deficitsU nabler. Diffuse weakness SKIN: No rashes. Assessment: Abdominal pain most likely secondary to stomach cancer with metastasis Uncontrolled pain secondary to above Altered mental status, possibly metabolic encephalopathy or possible component of medication effect Fibromyalgia GERD Hyperlipidemia osteoarthritis Sleep apnea does not use a CPAP History of anxiety/depression GI prophylaxis DVT prophylaxis No code Plan: Recommend to continue with current medications and management with [facility] following. Patient has been signed on with [facility] in the outpatient setting although due to increased shortness of breath and confusion family brought the patient to the ER in [facility] met here with family agreeable to no code and also GIP status for pain control. Home medications have been resumed and will continue current medication regimen. [facility] to follow working on pain management. Family with concerns of her mentation worsening and requesting the dilaudid pump to be decreased. [facility] managing pain pump. Overall prognosis remains guarded. We will continue to follow during hospitalization. The impression and plan of care has been dictated as a scribe by Marjorie Olivas, nurse practitioner as directed. Dr. Rafael MD I have performed a history and examination and MDM of this patient, discussed the same with the dictator, and will be documented as a scribe. Based on total visit time, I have performed more than 50% of the visit. Any additional findings or plans will be noted. Objective - Vital Signs Vital signs: Vital Signs Temp 98.1 F 09/02/22 05:59 Pulse 98 09/02/22 09:00 Resp 15 09/02/22 19:55 BP 140/80 09/02/22 09:00 Pulse Ox 96 09/02/22 09:00 FiO2 Intake & Output 09/02/22 09/03/22 09/03/22 18:59 06:59 18:59 Intake Total 100 Output Total 300 Balance -200 Weight 81.647 kg Intake: Intake, IV Titration 100 Amount HYDROmorphone (PF) 100 mg 100 In Sodium Chloride 0.9% 90 ml @ 12 MG/HR 12 mls/ hr IV .Q8H20M [facility] Rx#: [id number] Output: Urine 300 Other: Voiding Method Diaper Incontinent External Catheter - Labs CBC & Chem 7: 09/02/22 06:20 09/02/22 06:20
[2022-09-03] MEDS: HYDROmorphone 1 MG/ML 1 ML SYRINGE IVP PRN ×2 (14:12→20:49)
[2022-09-03] MEDS ORDERED: GLYCOPYRROLATE 0.2 MG/ML 2 ML VIAL IVP PRN (15:38)
[2022-09-03] MEDS: DULoxetine HCL 60 MG CAPSULE.DR PO SCH (20:29)
[2022-09-03] MEDS: LATANOPROST 0.005% OPHTH DROPS 2.5 ML BTL BOTH EYES SCH (20:29)
[2022-09-03] MEDS: MAGNESIUM OXIDE 400 MG TAB PO SCH (20:36)
[2022-09-03] MEDS: MIRTAZAPINE 45 MG TABLET PO SCH (20:36)
[2022-09-03] MEDS: MELATONIN 5 MG TABLET PO SCH (20:36)
[2022-09-03] MEDS: LORazepam 2 MG/ML INJ IV PRN (23:04)
[2022-09-04] MEDS: HYDROmorphone (PF) 100 MG in SODIUM CHLORIDE 0.9% 90 ML IV SCH ×3 (05:13→22:38)
[2022-09-04] MEDS: ASPIRIN 81 MG PO SCH (10:23)
[2022-09-04] MEDS: PANTOPRAZOLE 40 MG/10 ML VIAL IV SCH (10:23)
[2022-09-04] MEDS: dexAMETHasone 4 MG TAB PO SCH ×2 (10:24→20:08)
[2022-09-04] MEDS: busPIRone HCl 10 MG TAB PO SCH ×2 (10:24→20:08)
[2022-09-04] MEDS: SENNOSIDES-DOCUSATE SODIUM 1 EACH TAB PO SCH ×2 (10:24→20:08)
[2022-09-04] MEDS: LORazepam 2 MG/ML INJ IV PRN (15:01)
[2022-09-04] MEDS: HYDROmorphone 1 MG/ML 1 ML SYRINGE IVP PRN ×2 (15:01→22:43)
--- NOTE | 2022-09-04 17:32 | P.PN ---
Subjective Progress Note Date: 09/04/22 This is an 82-year-old female who follows with Dr. Mata in the outpatient setting has been recently hospitalized multiple times for failure of outpatient pain management as patient is signed on with [facility]. Patient with a past medical history of stage IV colon cancer this past April. Patient did attempt one round of chemotherapy unable to tolerate. Patient was brought here for shortness of breath and altered mental status and poor pain management. [facility] is following and patient meets criteria for inpatient GIP services. Patient had been being given phenobarbital although becoming more altered and lethargic and family wanted this discontinued. Labs on exam were reviewed and within normal limits and hemoglobin is 10.6, BMP within normal limits. Vital signs are stable and patient is maintained on 4 L via nasal cannula at 96% oxygen saturation. Home medications were resumed and patient made inpatient hospice. Per family CODE STATUS was addressed and agree with no code per [facility] nurse. 09/03/2022 Patient is seen in follow up today and per family request, dilaudid drip being turned down as they wish to have their mother more coherent. Patient continues to moan and wax and wain at times otherwise lethargic and sleeping. [facility] following. Patient is afebrile and not eating or drinking much. Recommend aspiration precautions. Continued on 3-4 L via NC. 09/04/2022 Patient is seen today and minimally responsive at times. Patient is on IV dil audid 10mg/hr. Breakthrough doses as well. Patient is on hospice services. Patient is not really eating at all. Few sips of water. Mostly lethargic. Review of systems: unable to obtain as patient is lethargic PHYSICAL EXAMINATION: GENERAL: The patient is sleeping, patient is lethargic. Well developed, well nourished. Ill appearing HEENT: Pupils are round and equally reacting to light. EOMI. no scleral icterus. No conjunctival pallor. Normocephalic, atraumatic. No pharyngeal erythema. No th yromegaly. CARDIOVASCULAR: S1 and S2 muffled PULMONARY: diminished breath sounds bilaterally with no wheezing and some scattered rhonchi noted. ABDOMEN: soft. tender on exam. obese. non-distended, normoactive bowel sounds. No palpable organomegaly. MUSCULOSKELETAL: No joint swelling or deformity. EXTREMITIES: No cyanosis, clubbing, or pedal edema. NEUROLOGICAL: Gross neurological examination did not reveal any focal deficitsUnabler. Diffuse weakness SKIN: No rashes. Assessment: Abdominal pain most likely secondary to stomach cancer with metastasis Uncontrolled pain secondary to above Altered mental status, possibly metabolic encephalopathy or possible component of medication effect Fibromyalgia GERD Hyperlipidemia osteoarthritis Sleep apnea does not use a CPAP History of anxiety/depression GI prophylaxis DVT prophylaxis No code Plan: Recommend to continue with current medications and management with [facility] following. Patient has been signed on with [facility] in the outpatient setting although due to increased shortness of breath and confusion family brought the patient to the ER in [facility] met here with family agreeable to no code and also GIP status for pain control. Home medications have been resumed and will continue current medication regimen. [facility] to follow working on pain management. dilaudid pump has been decreased and maintained on 10mg/hr. [facility] managing pain pump. Overall prognosis remains guarded. We will continue to follow during hospitalization. The impression and plan of care has been dictated as a scribe by Marjorie Olivas, nurse practitioner as directed. Dr. Rafael MD I have performed a history and examination and MDM of this patient, discussed the same with the dictator, and will be documented as a scribe. Based on total visit time, I have performed more than 50% of the visit. Any additional findings or plans will be noted. Objective - Vital Signs Vital signs: Vital Signs Temp 98.1 F 09/02/22 05:59 Pulse 98 09/02/22 09:00 Resp 15 09/03/22 19:50 BP 140/80 09/02/22 09:00 Pulse Ox 96 09/02/22 09:00 FiO2 Intake & Output 09/03/22 09/04/22 09/04/22 18:59 06:59 18:59 Intake Total 90.267 400 90 Output Total 700 Balance -609.733 400 90 Intake: Intake, IV Titration 90.267 200 90 Amount HYDROmorphone (PF) 100 mg 90.267 200 90 In Sodium Chloride 0.9% 90 ml @ 10 MG/HR 10 mls/ hr IV .Q10H [facility] Rx#: [id number] Oral 200 Output: Urine 700 Other: Voiding Method Diaper Incontinent External Catheter # Voids 1 1 1 - Labs CBC & Chem 7: 09/02/22 06:20 09/02/22 06:20
[2022-09-04] MEDS: MELATONIN 5 MG TABLET PO SCH (20:08)
[2022-09-04] MEDS: MAGNESIUM OXIDE 400 MG TAB PO SCH (20:08)
[2022-09-04] MEDS: MIRTAZAPINE 45 MG TABLET PO SCH (20:08)
[2022-09-04] MEDS: DULoxetine HCL 60 MG CAPSULE.DR PO SCH (20:08)
[2022-09-04] MEDS: LATANOPROST 0.005% OPHTH DROPS 2.5 ML BTL BOTH EYES SCH (20:08)
[2022-09-05] MEDS: LORazepam 2 MG/ML INJ IV PRN ×2 (01:32→09:10)
[2022-09-05] MEDS: HYDROmorphone 1 MG/ML 1 ML SYRINGE IVP PRN ×2 (06:06→12:32)
[2022-09-05] MEDS: HYDROmorphone (PF) 100 MG in SODIUM CHLORIDE 0.9% 90 ML IV SCH ×2 (06:06→15:26)
[2022-09-05] MEDS: ASPIRIN 81 MG PO SCH (07:46)
[2022-09-05] MEDS: dexAMETHasone 4 MG TAB PO SCH ×2 (07:47→20:55)
[2022-09-05] MEDS: busPIRone HCl 10 MG TAB PO SCH ×2 (07:47→20:55)
[2022-09-05] MEDS: SENNOSIDES-DOCUSATE SODIUM 1 EACH TAB PO SCH ×2 (07:47→20:58)
[2022-09-05] MEDS: PANTOPRAZOLE 40 MG/10 ML VIAL IV SCH (08:24)
--- NOTE | 2022-09-05 11:00 | P.PN ---
Progress Note - Text Progress Note Date: 09/05/22 The patient is being managed by the hospice service. Estela Dowling [facility] Palliative Care/Urology [facility] [id number] Email: [email or web address]
[2022-09-05] MEDS ORDERED: SCOPOLAMINE 1 MG/72 HR PATCH TRANSDERM SCH (12:00)
[2022-09-05] MEDS: MAGNESIUM OXIDE 400 MG TAB PO SCH (20:56)
[2022-09-05] MEDS: LATANOPROST 0.005% OPHTH DROPS 2.5 ML BTL BOTH EYES SCH (20:56)
[2022-09-05] MEDS: DULoxetine HCL 60 MG CAPSULE.DR PO SCH (20:56)
[2022-09-05] MEDS: MELATONIN 5 MG TABLET PO SCH (20:56)
[2022-09-05] MEDS: MIRTAZAPINE 45 MG TABLET PO SCH (20:58)
[2022-09-06] MEDS: HYDROmorphone (PF) 100 MG in SODIUM CHLORIDE 0.9% 90 ML IV SCH ×2 (00:37→13:44)
--- NOTE | 2022-09-06 05:03 | P.PN ---
Subjective Progress Note Date: 09/05/22 This is an 82-year-old female who follows with Dr. Mata in the outpatient setting has been recently hospitalized multiple times for failure of outpatient pain management as patient is signed on with [facility]. Patient with a past medical history of stage IV colon cancer this past April. Patient did attempt one round of chemotherapy unable to tolerate. Patient was brought here for shortness of breath and altered mental status and poor pain management. [facility] is following and patient meets criteria for inpatient GIP services. Patient had been being given phenobarbital although becoming more altered and lethargic and family wanted this discontinued. Labs on exam were reviewed and within normal limits and hemoglobin is 10.6, BMP within normal limits. Vital signs are stable and patient is maintained on 4 L via nasal cannula at 96% oxygen saturation. Home medications were resumed and patient made inpatient hospice. Per family CODE STATUS was addressed and agree with no code per [facility] nurse. 09/03/2022 Patient is seen in follow up today and per family request, dilaudid drip being turned down as they wish to have their mother more coherent. Patient continues to moan and wax and wain at times otherwise lethargic and sleeping. [facility] following. Patient is afebrile and not eating or drinking much. Recommend aspiration precautions. Continued on 3-4 L via NC. 09/04/2022 Patient is seen today and minimally responsive at times. Patient is on IV dil audid 10mg/hr. Breakthrough doses as well. Patient is on hospice services. Patient is not really eating at all. Few sips of water. Mostly lethargic. 09/05/2022 Patient is seen today lethargic and not responding. at the bedside and [facility] is following. Patient is continued on dilaudid pump 10mg/hr with [facility] managing. Concerns for medication abuse and hospice recommending home with 24/ supervision of another family member to manage the medication administration or to [facility] with hospice services. Afebrile and continued on 4L via NC. 02 readings in the 80's-90's. Prognosis is guarded. Review of systems: unable to obtain as patient is lethargic PHYSICAL EXAMINATION: GENERAL: The patient is sleeping, patient is lethargic. Well developed, well nourished. Ill appearing HEENT: Pupils are round and equally reacting to light. EOMI. no scleral icterus. No conjunctival pallor. Normocephalic, atraumatic. No pharyngeal erythema. No thyromegaly. CARDIOVASCULAR: S1 and S2 muffled PULMONARY: diminished breath sounds bilaterally with no wheezing and some scat tered rhonchi noted. ABDOMEN: soft. tender on exam. obese. non-distended, normoactive bowel sounds. No palpable organomegaly. MUSCULOSKELETAL: No joint swelling or deformity. EXTREMITIES: No cyanosis, clubbing, or pedal edema. NEUROLOGICAL: Gross neurological examination did not reveal any focal deficits. unable yo completely assess due to sleeping. Diffuse weakness SKIN: No rashes. Assessment: Abdominal pain most likely secondary to stomach cancer with metastasis Uncontrolled pain secondary to above Altered mental status, possibly metabolic encephalopathy or possible component of medication effect Fibromyalgia GERD Hyperlipidemia osteoarthritis Sleep apnea does not use a CPAP History of anxiety/depression GI prophylaxis DVT prophylaxis No code Plan: Recommend to continue with current medications and management with [facility] following. Patient has been signed on with [facility] in the outpatient setting although due to increased shortness of breath and confusion family brought the patient to the ER in [facility] met here with family agreeable to no code and also GIP status for pain control. Home medications have been resumed and will continue current medication regimen. [facility] to follow working on pain management and possible discharge to [facility] with hospice services or possibly home with 24/7 home supervision with another family member to manage administration of medications. Continue dilaudid pump at decreased rate and maintained on 10mg/hr. [facility] managing pain pump. Overall prognosis remains guarded. Patient is only occasionally taking sips of water and not eating per nursing staff. We will continue to follow during hospitalization. Possible discharge in 24 hours. The impression and plan of care has been dictated by Marjorie Olivas, Nurse Practitioner as directed. Dr. Marine MD I have performed a history and examination and MDM of this patient, discussed the same with the dictator, and agree with the dictator's assessment and plan as written ,documented as a scribe. Based on total visit time, I have performed more than 50% of the visit. Objective - Vital Signs Vital signs: Vital Signs Temp 98.1 F 09/02/22 05:59 Pulse 98 09/02/22 09:00 Resp 15 09/03/22 19:50 BP 140/80 09/02/22 09:00 Pulse Ox 96 09/02/22 09:00 FiO2 Intake & Output 09/04/22 09/05/22 09/05/22 18:59 06:59 18:59 Intake Total 90 158.834 Output Total 200 Balance 90 -41.166 Intake: Intake, IV Titration 90 158.834 Amount HYDROmorphone (PF) 100 mg 90 158.834 In Sodium Chloride 0.9% 90 ml @ 10 MG/HR 10 mls/ hr IV .Q10H [facility] Rx#: [id number] Output: Urine 200 Other: Voiding Method Diaper Incontinent External Catheter # Voids 1 - Labs CBC & Chem 7: 09/02/22 06:20 09/02/22 06:20
[2022-09-06] MEDS: busPIRone HCl 10 MG TAB PO SCH ×2 (08:05→20:38)
[2022-09-06] MEDS: SENNOSIDES-DOCUSATE SODIUM 1 EACH TAB PO SCH ×2 (08:05→20:38)
[2022-09-06] MEDS: dexAMETHasone 4 MG TAB PO SCH ×2 (08:05→20:38)
[2022-09-06] MEDS: ASPIRIN 81 MG PO SCH (08:05)
[2022-09-06] MEDS: PANTOPRAZOLE 40 MG/10 ML VIAL IV SCH (08:05)
[2022-09-06] MEDS ORDERED: HYDROmorphone (PF) 50 MG in SODIUM CHLORIDE 0.9% 45 ML IV ONE (09:00)
[2022-09-06] MEDS: HYDROmorphone 1 MG/ML 1 ML SYRINGE IVP PRN (12:13)
[2022-09-06 19:36] VITALS: BP 104/68; PULSE 95; RESP 20; TEMP 97.8
[2022-09-06] MEDS: DULoxetine HCL 60 MG CAPSULE.DR PO SCH (20:38)
[2022-09-06] MEDS: MELATONIN 5 MG TABLET PO SCH (20:38)
[2022-09-06] MEDS: LATANOPROST 0.005% OPHTH DROPS 2.5 ML BTL BOTH EYES SCH (20:38)
[2022-09-06] MEDS: MAGNESIUM OXIDE 400 MG TAB PO SCH (20:38)
[2022-09-06] MEDS: MIRTAZAPINE 45 MG TABLET PO SCH (20:38)
[2022-09-07] MEDS: HYDROmorphone (PF) 100 MG in SODIUM CHLORIDE 0.9% 90 ML IV SCH (01:55)
--- NOTE | 2022-09-07 04:57 | P.PN ---
Subjective Progress Note Date: 09/06/22 This is an 82-year-old female who follows with Dr. Mata in the outpatient setting has been recently hospitalized multiple times for failure of outpatient pain management as patient is signed on with [facility]. Patient with a past medical history of stage IV colon cancer this past April. Patient did attempt one round of chemotherapy unable to tolerate. Patient was brought here for shortness of breath and altered mental status and poor pain management. [facility] is following and patient meets criteria for inpatient GIP services. Patient had been being given phenobarbital although becoming more altered and lethargic and family wanted this discontinued. Labs on exam were reviewed and within normal limits and hemoglobin is 10.6, BMP within normal limits. Vital signs are stable and patient is maintained on 4 L via nasal cannula at 96% oxygen saturation. Home medications were resumed and patient made inpatient hospice. Per family CODE STATUS was addressed and agree with no code per [facility] nurse. 09/03/2022 Patient is seen in follow up today and per family request, dilaudid drip being turned down as they wish to have their mother more coherent. Patient continues to moan and wax and wain at times otherwise lethargic and sleeping. [facility] following. Patient is afebrile and not eating or drinking much. Recommend aspiration precautions. Continued on 3-4 L via NC. 09/04/2022 Patient is seen today and minimally responsive at times. Patient is on IV dil audid 10mg/hr. Breakthrough doses as well. Patient is on hospice services. Patient is not really eating at all. Few sips of water. Mostly lethargic. 09/05/2022 Patient is seen today lethargic and not responding. at the bedside and [facility] is following. Patient is continued on dilaudid pump 10mg/hr with [facility] managing. Concerns for medication abuse and hospice recommending home with / supervision of another family member to manage the medication administration or to [facility] with hospice services. Afebrile and continued on 4L via NC. 02 readings in the 80's-90's. Prognosis is guarded. 09/06/2022 Patient is more awake today and asking for food. Small pleasure foods given by family at bedside. Plan is for return home with family and [facility] arranging. Daughter will be staying with mother to help manage medications. Patient is afebrile and no reports of chest pain or shortness of breath noted. Review of systems: unable to obtain as patient is somewhat sedated on pain medications PHYSICAL EXAMINATION: GENERAL: The patient is awake, patient is lethargic. Well developed, well nourished. Ill appearing HEENT: Pupils are round and equally reacting to light. EOMI. no scleral icterus. No conjunctival pallor. Normocephalic, atraumatic. No pharyngeal erythema. No thyromegaly. CARDIOVASCULAR: S1 and S2 muffled PULMONARY: diminished breath sounds bilaterally with no wheezing and some scattered rhonchi noted. ABDOMEN: soft. less tender on exam. obese. non-distended, normoactive bowel sounds. No palpable organomegaly. MUSCULOSKELETAL: No joint swelling or deformity. EXTREMITIES: No cyanosis, clubbing, or pedal edema. NEUROLOGICAL: Gross neurological examination did not reveal any focal deficits. unable to completely assess due to patient being lethargic at times. Diffuse weakness SKIN: No rashes. Assessment: Abdominal pain most likely secondary to stomach cancer with metastasis Uncontrolled pain secondary to above Altered mental status, possibly metabolic encephalopathy or possible component of medication effect Fibromyalgia GERD Hyperlipidemia osteoarthritis Sleep apnea does not use a CPAP History of anxiety/depression GI prophylaxis DVT prophylaxis No code Plan: Recommend to continue with current medications and management with [facility] following. Patient has been signed on with [facility] in the out patient setting although due to increased shortness of breath and confusion family brought the patient to the ER in [facility] met here with family agreeable to no code and also GIP status for pain control. Home medications have been resumed and will continue current medication regimen. [facility] to follow working on pain management and possible discharge to home with continued hospice services with 24 home supervision with another family member to manage administration of medications. Daughter will be staying with her. Continue dilaudid pump at decreased rate and maintained on 10mg/hr. [facility] managing pain pump. Overall prognosis remains guarded. Patient has only occasionally been taking sips of water and not eating per nursing staff. This morning patient reported to being hungry and ate a few small bites of oatmeal. We will continue to follow during hospitalization. Plan is for discharge in 24 hours once dilaudid infusion bag is delivered to [facility]. The impression and plan of care has been dictated by Marjorie Olivas, Nurse Practitioner as directed. Dr. Marine MD I have performed a history and examination and MDM of this patient, discussed the same with the dictator, and agree with the dictator's assessment and plan as written ,documented as a scribe. Based on total visit time, I have performed more than 50% of the visit. Objective - Vital Signs Vital signs: Vital Signs Temp 97.8 F 09/06/22 19:34 Pulse 95 09/06/22 19:34 Resp 20 09/06/22 19:34 BP 104/68 09/06/22 19:34 Pulse Ox 91 L 09/06/22 19:34 FiO2 Intake & Output 09/06/22 09/06/22 09/07/22 06:59 18:59 06:59 Intake Total 91.833 42.333 57.667 Output Total 300 Balance 91.833 -257.667 57.667 Intake: Intake, IV Titration 91.833 42.333 57.667 Amount HYDROmorphone (PF) 100 mg 91.833 In Sodium Chloride 0.9% 90 ml @ 10 MG/HR 10 mls/ hr IV .Q10H [facility] Rx#: [id number] HYDROmorphone (PF) 100 mg 42.333 57.667 In Sodium Chloride 0.9% 90 ml @ 10 MG/HR 10 mls/ hr IV .Q10H [facility]IO Rx#: [id number] Output: Urine 300 Other: Voiding Method Diaper Diaper Diaper Incontinent Incontinent Incontinent External Catheter External Catheter External Catheter # Voids 1 - Labs CBC & Chem 7: 09/02/22 06:20 09/02/22 06:20
[2022-09-07] MEDS: PANTOPRAZOLE 40 MG/10 ML VIAL IV SCH (09:19)
[2022-09-07] MEDS: busPIRone HCl 10 MG TAB PO SCH (09:19)
[2022-09-07] MEDS: ASPIRIN 81 MG PO SCH (09:19)
[2022-09-07] MEDS: SENNOSIDES-DOCUSATE SODIUM 1 EACH TAB PO SCH (09:19)
[2022-09-07] MEDS: dexAMETHasone 4 MG TAB PO SCH (09:19)
[2022-09-07] MEDS ORDERED: HYDROMORPHONE IV ONE (16:00)
[2022-09-07] MEDS ORDERED: SODIUM CHLORIDE 0.9% IV ONE (16:00)
[2022-09-07] MEDS: LORazepam 2 MG/ML INJ IV PRN (18:16)
== END 2022-09-07 18:52 | disposition hospice, home (50) | DRG 374 ==
LOC: EC 05:56 → 5NMEDONC 07:14 → OBSVTOIN 07:15 → 5NMEDONC 16:03
PROVIDERS: ADMIT Hospitalist; ATTEND Hospitalist
DX: C18.9 Malignant neoplasm of colon, unspecified (principal); G93.41 Metabolic encephalopathy; C16.9 Malignant neoplasm of stomach, unspecified; C79.2 Secondary malignant neoplasm of skin; C78.89 Secondary malignant neoplasm of other digestive organs; M79.7 Fibromyalgia; K21.9 Gastro-esophageal reflux disease without esophagitis; M19.90 Unspecified osteoarthritis, unspecified site; G47.30 Sleep apnea, unspecified; F41.9 Anxiety disorder, unspecified; E78.5 Hyperlipidemia, unspecified; F31.9 Bipolar disorder, unspecified; F41.0 Panic disorder [episodic paroxysmal anxiety]; G40.909 Epilepsy, unspecified, not intractable, without status epilepticus; Z51.5 Encounter for palliative care; Z66 Do not resuscitate; Z79.82 Long term (current) use of aspirin; Z79.899 Other long term (current) drug therapy; Z86.73 Personal history of transient ischemic attack (TIA), and cerebral infarction without residual deficits; Z87.11 Personal history of peptic ulcer disease; Z87.19 Personal history of other diseases of the digestive system; Z87.891 Personal history of nicotine dependence; Z90.710 Acquired absence of both cervix and uterus; Z96.612 Presence of left artificial shoulder joint; Z96.653 Presence of artificial knee joint, bilateral; Z98.42 Cataract extraction status, left eye; Z98.41 Cataract extraction status, right eye; Z88.7 Allergy status to serum and vaccine; Z88.8 Allergy status to other drugs, medicaments and biological substances; Z88.6 Allergy status to analgesic agent; D64.9 Anemia, unspecified; G89.29 Other chronic pain; M54.9 Dorsalgia, unspecified; Z86.010 Personal history of colon polyps
CPT/HCPCS: 36415; 80053; 83605; 85025; 85610; 85730; 96374; 96375; 99285

== ENCOUNTER 2022-09-02 10:45 | Emergency (ER) | payer MEDICAID, MEDICARE ==
[2022-09-02] MEDS ORDERED: ONDANSETRON 4 MG/2 ML VIAL IVP PRN (10:53)
[2022-09-02] MEDS ORDERED: LORazepam 2 MG/ML INJ IV PRN (10:53)
[2022-09-02] MEDS ORDERED: ACETAMINOPHEN SUPPOSITORY 650 MG SUPP RECTAL PRN (10:53)
[2022-09-02] MEDS ORDERED: GLYCOPYRROLATE 0.2 MG/ML 2 ML VIAL IVP PRN (10:53)
[2022-09-02] MEDS ORDERED: HYDROmorphone 1 MG/ML 1 ML SYRINGE IVP PRN (11:00)
[2022-09-02] MEDS ORDERED: SCOPOLAMINE 1 MG/72 HR PATCH TRANSDERM SCH (11:00)
[2022-09-02] MEDS: HYDROmorphone (PF) 50 MG in SODIUM CHLORIDE 0.9% 45 ML IV SCH ×2 (11:52→15:36)
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
[2022-09-02 13:29] VITALS: TEMP 98.6
[2022-09-02] MEDS ORDERED: HYDROmorphone (PF) 100 MG in SODIUM CHLORIDE 0.9% 90 ML IV SCH (15:00)
[2022-09-02 15:56] VITALS: RESP 8
[2022-09-02 17:07] VITALS: BP 114/55; PULSE 96
== END 2022-09-02 17:07 ==
LOC: EC 10:45
DX: Z53.9 Procedure and treatment not carried out, unspecified reason (principal); R06.00 Dyspnea, unspecified; Z51.5 Encounter for palliative care

== ENCOUNTER 2022-09-17 20:03 | Observation (INO) | payer MEDICARE, OTHER ==
[2022-09-17] MEDS ORDERED: ONDANSETRON 4 MG/2 ML VIAL IVP STA (20:54)
[2022-09-17] MEDS ORDERED: HYDROmorphone 0.5 MG/0.5 ML SYRINGE IVP STA ×2 (20:54→23:11)
[2022-09-17] MEDS ORDERED: SODIUM CHLORIDE 0.9% 1,000 ML IV STA (20:54)
[2022-09-17] MEDS ORDERED: DICYCLOMINE 10 MG/ML 2 ML AMP IM STA (21:43)
[2022-09-17] MEDS ORDERED: diphenhydrAMINE 50 MG/ML 1 ML VIAL IVP STA (21:51)
[2022-09-17] MEDS ORDERED: HYDROmorphone 1 MG/ML 1 ML SYRINGE IVP STA (21:51)
[2022-09-17 22:24] LABS: Anisocytosis Slight; Basophils % (A) 0 %; Eosinophils % (A) 0 %; HCT 33.5 % (34.0-46.0); HGB 10.4 gm/dL (11.4-16.0); Hypochromasia Marked; Lymphocytes # (A) 0.9 k/uL (1.0-4.8); Lymphocytes % (A) 16 %; MCH 23.7 pg (25.0-35.0); MCHC 30.9 g/dL (31.0-37.0); MCV 76.4 fL (80.0-100.0); Mean Platelet Volume 7.2; Microcytosis Slight; Monocytes # (A) 0.3 k/uL (0-1.0); Monocytes % (A) 6 %; Neutrophils # (A) 4.2 k/uL (1.3-7.7); Neutrophils % (A) 76 %; Platelet Count 345 k/uL (150-450); RBC 4.38 m/uL (3.80-5.40); WBC 5.6 k/uL (3.8-10.6)
[2022-09-17 22:37] LABS: ALT 35 U/L (4-34); AST 55 U/L (14-36); African American GFR (CKD) >90 (>60 ml/min/1.73 sqM); Albumin 4.4 g/dL (3.5-5.0); Alkaline Phosphatase 169 U/L (38-126); Anion Gap 10 mmol/L; Blood Urea Nitrogen 8 mg/dL (7-17); Calcium 9.7 mg/dL (8.4-10.2); Carbon Dioxide 31 mmol/L (22-30); Chloride 97 mmol/L (98-107); Glucose 116 mg/dL (74-99); Non-African American GFR(CKD) 88 (>60 ml/min/1.73 sqM); Sodium 138 mmol/L (137-145); Total Bilirubin 0.5 mg/dL (0.2-1.3); Total Protein 8.4 g/dL (6.3-8.2)
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
[2022-09-17] MEDS ORDERED: NALOXONE 0.4 MG/ML 1 ML VIAL IV PRN (23:47)
[2022-09-17] MEDS ORDERED: PROCHLORPERAZINE 10 MG TAB PO PRN (23:49)
[2022-09-17] MEDS: MELATONIN 5 MG TABLET PO SCH (23:56)
[2022-09-17] MEDS: SENNOSIDES-DOCUSATE SODIUM 1 EACH TAB PO SCH (23:56)
[2022-09-17] MEDS: SODIUM CHLORIDE 0.9% 1,000 ML IV SCH (23:57)
[2022-09-17] MEDS: SCOPOLAMINE 1 MG/72 HR PATCH TRANSDERM SCH (23:59)
[2022-09-18] MEDS ORDERED: HYDROmorphone 0.5 MG/0.5 ML SYRINGE IVP STA (04:55)
[2022-09-18] MEDS: bisacodyL 10 MG SUPP RECTAL PRN (05:06)
[2022-09-18] MEDS: PANTOPRAZOLE 40 MG TABLET PO SCH (05:08)
[2022-09-18] MEDS: LORazepam 0.5 MG TAB PO PRN ×3 (06:48→18:21)
[2022-09-18 08:17] LABS: INR 1.3 (<1.2); Partial Thromboplastin Time 24.8 sec (22.0-30.0); Prothrombin Time 13.3 sec (9.0-12.0)
[2022-09-18] MEDS: ASPIRIN 81 MG PO SCH (09:49)
[2022-09-18] MEDS: busPIRone HCl 10 MG TAB PO SCH ×2 (09:49→21:12)
[2022-09-18] MEDS: DICYCLOMINE 10 MG CAP PO PRN (09:49)
[2022-09-18] MEDS: SENNOSIDES-DOCUSATE SODIUM 1 EACH TAB PO SCH ×2 (09:49→20:11)
[2022-09-18] MEDS ORDERED: HYDROmorphone 0.5 MG/0.5 ML SYRINGE IVP PRN (10:35)
[2022-09-18] MEDS: HYDROcodone/APAP 10-325MG 1 EACH TAB PO PRN ×2 (11:06→20:07)
[2022-09-18] MEDS ORDERED: polyethylene glycoL 3350 17 GM POWD.PACK PO PRN (11:37)
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
[2022-09-18] MEDS: HYDROmorphone 1 MG/ML 1 ML SYRINGE IVP PRN ×3 (14:21→21:11)
[2022-09-18] MEDS: SODIUM CHLORIDE 0.9% 1,000 ML IV SCH (14:31)
[2022-09-18] MEDS ORDERED: SIMETHICONE 80 MG CHEWABLE PO PRN (18:44)
[2022-09-18] MEDS: MELATONIN 5 MG TABLET PO SCH (20:08)
[2022-09-18] MEDS: DULoxetine HCL 60 MG CAPSULE.DR PO SCH (20:08)
[2022-09-18] MEDS: MAGNESIUM OXIDE 400 MG TAB PO SCH (20:08)
[2022-09-18] MEDS: MIRTAZAPINE 45 MG TABLET PO SCH (21:12)
[2022-09-18] MEDS: LATANOPROST 0.005% OPHTH DROPS 2.5 ML BTL BOTH EYES SCH (21:12)
[2022-09-19] MEDS: SODIUM CHLORIDE 0.9% 1,000 ML IV SCH ×2 (02:30→20:01)
[2022-09-19] MEDS: PANTOPRAZOLE 40 MG TABLET PO SCH (06:35)
[2022-09-19] MEDS: ASPIRIN 81 MG PO SCH (09:20)
[2022-09-19] MEDS: HYDROcodone/APAP 10-325MG 1 EACH TAB PO PRN ×2 (09:20→15:51)
[2022-09-19] MEDS: busPIRone HCl 10 MG TAB PO SCH ×2 (09:21→20:30)
[2022-09-19] MEDS: SENNOSIDES-DOCUSATE SODIUM 1 EACH TAB PO SCH ×2 (09:21→20:31)
[2022-09-19] MEDS: HYDROmorphone 1 MG/ML 1 ML SYRINGE IVP PRN ×3 (12:05→18:43)
[2022-09-19] MEDS: LORazepam 0.5 MG TAB PO PRN ×2 (12:35→17:37)
[2022-09-19] MEDS: LATANOPROST 0.005% OPHTH DROPS 2.5 ML BTL BOTH EYES SCH (20:29)
[2022-09-19] MEDS: MELATONIN 5 MG TABLET PO SCH (20:30)
[2022-09-19] MEDS: MIRTAZAPINE 45 MG TABLET PO SCH (20:30)
[2022-09-19] MEDS: DULoxetine HCL 60 MG CAPSULE.DR PO SCH (20:30)
[2022-09-19] MEDS: MAGNESIUM OXIDE 400 MG TAB PO SCH (20:31)
[2022-09-19] MEDS: DICYCLOMINE 10 MG CAP PO PRN (20:31)
[2022-09-20] MEDS: SODIUM CHLORIDE 0.9% 1,000 ML IV SCH ×2 (02:01→18:43)
[2022-09-20] MEDS: HYDROmorphone 1 MG/ML 1 ML SYRINGE IVP PRN ×5 (03:05→21:20)
--- NOTE | 2022-09-20 03:43 | P.PN ---
Subjective Progress Note Date: 09/19/22 82-year-old pleasant female with history of colon cancer metastatic disease was on hospice, because of hospice and home situation hospice was discontinued and patient used to have a Dilaudid pump which was subsequently discontinued and patient given with severe abdominal pain diffusely secondary to cancer. Patient was started on Dilaudid as well as a low-dose fentanyl patch. 09/19/2022 Patient is seen in follow-up this morning asleep but easily arousable is responding appropriately to questions and commands reporting continued abdominal pain. Patient reports she is having bowel movements although not eating very well. Patient continues to have uncontrolled pain with case management following. Apparently son and daughter have a guardianship. Monday at the Court which is currently pending and will discuss further with family along with case management about discharge planning. Patient was discharged from [facility] and will not be following with them any longer per their contract. Per nursing staff requesting oncology consult. Afebrile with no reports of chest pain or palpitations. Patient reports abdominal pain and bloating. Review of systems: Constitutional: reports of fatigue, no fever, or chills Cardiovascular: No reports of chest pain or palpitations Respiratory: No reports of shortness of breath or cough GI: No reports of nausea, vomiting, or diarrhea, reports continued abdominal pain and bloating : No reports of dysuria or retention Neurovascular: reports of generalized weakness PHYSICAL EXAMINATION: GENERAL: The patient is alert and oriented x3, lethargic at times but arousable, not in any acute distress. Well developed, well nourished. HEENT: Pupils are round and equally reacting to light. EOMI. No scleral icterus. No conjunctival pallor. Normocephalic, atraumatic. No pharyngeal erythema. No thyromegaly. CARDIOVASCULAR: S1 and S2 present. No murmurs, rubs, or gallops. PULMONARY: Chest is clear to auscultation, no wheezing or crackles. ABDOMEN: Diffuse tenderness non-distended, normoactive bowel sounds. No palpable organomegaly. MUSCULOSKELETAL: No joint swelling or deformity. EXTREMITIES: No cyanosis, clubbing, or pedal edema. NEUROLOGICAL: Gross neurological examination did not reveal any focal deficits. Diffusely weak SKIN: No rashes. Assessment: -Severe abdominal pain secondary to colon cancer: Patient was recently on Hospice and has been discharged from [facility] services due to voiding contract, case management consulted and there is a guardianship hearing this Monday with family -CVA in the past -Advanced metastatic colon cancer -Sleep apnea -Fibromyalgia -Seizure disorder Plan: Recommend to continue with pain management Case management following there is a court hearing for guardianship for her son and daughter to obtain this Monday and will discuss discharge planning Patient was recently on [facility] services in the outpatient setting and has been discharged from hospice and will no longer follow due to voiding contract that was established and recent admission and noncompliant levels contract. [facility] will only follow this patient is made GIP appropriate. requesting oncology consult as he wants to know the size of the mass and will discuss further Patient's CODE STATUS is full code and will need to address with family Overall prognosis is poor and guarded. The impression and plan of care has been dictated by Marjorie Olivas, Nurse Practitioner as directed. Dr. Zeeshan MD I have performed a history and examination and MDM of this patient, discussed the same with the dictator, and agree with the dictator's assessment and plan as written ,documented as a scribe. Based on total visit time, I have performed more than 50% of the visit. Objective - Vital Signs Vital signs: Vital Signs Temp 98.6 F 09/19/22 07:00 Pulse 91 09/19/22 07:00 Resp 20 09/19/22 07:00 BP 162/91 09/19/22 07:00 Pulse Ox 96 09/19/22 07:00 FiO2 Intake & Output 09/18/22 09/19/22 09/19/22 18:59 06:59 18:59 Intake Total 230 Balance 230 Intake: Oral 230 Other: Voiding Method Toilet # Voids 2 - Labs CBC & Chem 7: 09/17/22 22:06 09/17/22 22:06
[2022-09-20] MEDS: PANTOPRAZOLE 40 MG TABLET PO SCH (06:16)
[2022-09-20] MEDS: busPIRone HCl 10 MG TAB PO SCH ×2 (09:39→20:41)
[2022-09-20] MEDS: SENNOSIDES-DOCUSATE SODIUM 1 EACH TAB PO SCH ×2 (09:39→20:40)
[2022-09-20] MEDS: ASPIRIN 81 MG PO SCH (09:39)
[2022-09-20] MEDS: SCOPOLAMINE 1 MG/72 HR PATCH TRANSDERM SCH (13:06)
[2022-09-20] MEDS: HYDROcodone/APAP 10-325MG 1 EACH TAB PO PRN (15:23)
[2022-09-20] MEDS: bisacodyL 10 MG SUPP RECTAL PRN (16:39)
[2022-09-20] MEDS: MELATONIN 5 MG TABLET PO SCH (20:40)
[2022-09-20] MEDS: LATANOPROST 0.005% OPHTH DROPS 2.5 ML BTL BOTH EYES SCH (20:40)
[2022-09-20] MEDS: MIRTAZAPINE 45 MG TABLET PO SCH (20:40)
[2022-09-20] MEDS: MAGNESIUM OXIDE 400 MG TAB PO SCH (20:41)
[2022-09-20] MEDS: DULoxetine HCL 60 MG CAPSULE.DR PO SCH (20:41)
--- NOTE | 2022-09-21 03:26 | P.PN ---
Subjective Progress Note Date: 09/21/22 82-year-old pleasant female with history of colon cancer metastatic disease was on hospice, because of hospice and home situation hospice was discontinued and patient used to have a Dilaudid pump which was subsequently discontinued and patient given with severe abdominal pain diffusely secondary to cancer. Patient was started on Dilaudid as well as a low-dose fentanyl patch. 09/19/2022 Patient is seen in follow-up this morning asleep but easily arousable is responding appropriately to questions and commands reporting continued abdominal pain. Patient reports she is having bowel movements although not eating very well. Patient continues to have uncontrolled pain with case management following. Apparently son and daughter have a guardianship. Monday at the Court which is currently pending and will discuss further with family along with case management about discharge planning. Patient was discharged from [facility] and will not be following with them any longer per their contract. Per nursing staff requesting oncology consult. Afebrile with no reports of chest pain or palpitations. Patient reports abdominal pain and bloating. 09/20/2022 Patient is seen in follow-up this morning awake, alert and oriented, and more positive spirits today with Dr. Owens and at the bedside. Case management following closely as there is scheduled court hearing for guardianship the son and daughter like to pursue. An advocate from the law office visited to discuss options regarding the guardianship. Patient has reported that she fears her son and requesting no visitors except her spouse and daughter. Patient is eating and tolerating with no reports of increased abdominal pain. Discussed discharge planning and will follow-up with case management in the morning. Review of systems: Constitutional: no reports of fatigue, no fever, or chills Cardiovascular: No reports of chest pain or palpitations Respiratory: No reports of shortness of breath or cough GI: No reports of nausea, vomiting, or diarrhea, reports slightly improved abdominal pain today : No reports of dysuria or retention Neurovascular: reports of generalized weakness PHYSICAL EXAMINATION: GENERAL: The patient is alert and oriented x3, awake today, not in any acute distress. Well developed, well nourished. HEENT: Pupils are round and equally reacting to light. EOMI. No scleral icterus. No conjunctival pallor. Normocephalic, atraumatic. No pharyngeal erythema. No thyromegaly. CARDIOVASCULAR: S1 and S2 present. No murmurs, rubs, or gallops. PULMONARY: Chest is clear to auscultation, no wheezing or crackles. ABDOMEN: Diffuse tenderness non-distended, normoactive bowel sounds. No palpable organomegaly. MUSCULOSKELETAL: No joint swelling or deformity. EXTREMITIES: No cyanosis, clubbing, or pedal edema. NEUROLOGICAL: Gross neurological examination did not reveal any focal deficits. Diffusely weak SKIN: No rashes. Assessment: -Severe abdominal pain secondary to colon cancer: Patient was recently on Hospice and has been discharged from [facility] services due to voiding contract, case management consulted and there is a guardianship hearing this Monday with family -CVA history -Advanced metastatic colon cancer -Sleep apnea -Fibromyalgia -Seizure disorder Plan: Recommend to continue with pain management Case management following there is a court hearing for guardianship for her son and daughter to obtain this Monday and will discuss discharge planning. Patient is reporting that she fears her son does not want visitors Patient was recently on [facility] hospice services in the outpatient setting and has been discharged from hospice and will no longer follow due to voiding contract that was established and recent admission and noncompliant with the contract. [facility] will only follow if this patient is made GIP appropriate. Patient is currently medically stable and working on social issues and discharge planning with case management following closely requesting oncology consult as he wants to know the size of the mass and have discussed with them, and will need outpatient PET scan Overall prognosis is poor and guarded. Possible discharge in 24 hours The impression and plan of care has been dictated by Marjorie Olivas, Nurse Practitioner as directed. Dr. Zeeshan MD I have performed a history and examination and MDM of this patient, discussed the same with the dictator, and agree with the dictator's assessment and plan as written ,documented as a scribe. Based on total visit time, I have performed more than 50% of the visit. Objective - Vital Signs Vital signs: Vital Signs Temp 98.3 F 09/20/22 07:15 Pulse 93 09/20/22 07:15 Resp 18 09/20/22 07:15 BP 145/73 09/20/22 07:15 Pulse Ox 95 09/20/22 07:15 FiO2 Intake & Output 12/19/22 12/20/22 12/20/22 18:59 06:59 18:59 Intake Total 0 Balance 0 Intake: Oral 0 Other: Voiding Method Toilet # Voids 2 # Bowel Movements 0 - Labs CBC & Chem 7: 09/17/22 22:06 09/17/22 22:06
[2022-09-21] MEDS: SODIUM CHLORIDE 0.9% 1,000 ML IV SCH (06:14)
[2022-09-21] MEDS: HYDROmorphone 1 MG/ML 1 ML SYRINGE IVP PRN (06:15)
[2022-09-21] MEDS: PANTOPRAZOLE 40 MG TABLET PO SCH (06:15)
[2022-09-21 07:51] VITALS: BP 158/81; PULSE 88; RESP 14; TEMP 98.2
[2022-09-21] MEDS: ASPIRIN 81 MG PO SCH (10:22)
[2022-09-21] MEDS: SENNOSIDES-DOCUSATE SODIUM 1 EACH TAB PO SCH (10:22)
[2022-09-21] MEDS: busPIRone HCl 10 MG TAB PO SCH (10:22)
[2022-09-21] MEDS ORDERED: HYDROmorphone 0.5 MG/0.5 ML SYRINGE IVP STA (10:41)
--- NOTE | 2022-09-23 20:26 | P.DS ---
Providers Date of admission: 09/17/22 23:47 Expected date of discharge: 09/21/22 Attending physician: Hector Hall Primary care physician: Hill Mata Hospital Course: Final diagnosis -Severe abdominal pain secondary to colon cancer: Patient was recently on Hospice and has been discharged from [facility] hospice services due to voiding contract -CVA history -Advanced metastatic colon cancer -Sleep apnea -Fibromyalgia -Seizure disorder Discharge disposition Patient is being discharged in a stable condition with guarded prognosis to home. Patient will follow-up with Dr. Mata in the outpatient setting upon discharge. Total time taken is greater than 35 minutes. Hospital course This is a 82-year-old female who was recently admitted with intractable abdominal pain secondary to her stomach cancer. Patient recently on hospice receiving IV Dilaudid pump to contract and was voided is apparently the family took her out of the home and was contract [facility] hospice will follow. Patient will need close outpatient follow-up with primary care provider to discuss pain management moving forward. Family also inquiring about a possible PET scan to further assess progression. Patient feeling well and would like to go home and has an appointment with primary care provider on Monday morning. Currently no reports of chest pain, shortness of breath, or palpitations. Patient is afebrile. No reports of nausea or vomiting and patient is tolerating diet. Patient will be discharged home today . Guarded prognosis as patient is high risk for readmissions. Physical exam: Gen: This is a 82-year-old female who is awake, alert and oriented 3, well- developed, well-nourished HEENT: Head is atraumatic, normocephalic. Pupils equal, round. Sclerae is anicteric. NECK: Supple. No JVD. No lymphadenopathy. No thyromegaly. LUNGS: Clear to auscultation. No wheezes or rhonchi. No intercostal retractions. HEART: Regular rate and rhythm. No murmur. ABDOMEN: Soft. Bowel sounds are present. No masses. Mild tenderness. EXTREMITIES: No pedal edema. No calf tenderness. NEUROLOGICAL: Patient is awake, alert and oriented x3. Cranial nerves 2 through 12 are grossly intact. Please refer to medication reconciliation sheet for a list of medications. The impression and plan of care has been dictated by Marjorie Olivas, Nurse Practitioner as directed. MD Yulia I have performed a history and examination and MDM of this patient, discussed the same with the dictator, and agree with the dictator's assessment and plan as written ,documented as a scribe. Based on total visit time, I have performed more than 50% of the visit. Patient Condition at Discharge: Stable Plan - Discharge Summary New Discharge Prescriptions: New polyethylene glycoL 3350 [Miralax] 17 gm PO DAILY PRN packet PRN Reason: Constipation Continue Latanoprost/Pf [Latanoprost 0.005% Eye Drop] 1 drop BOTH EYES HS Pantoprazole [Protonix] 40 mg PO DAILY Aspirin EC [Ecotrin Low Dose] 81 mg PO DAILY Magnesium 500 mg PO HS Acetaminophen Tab [Tylenol] 500 mg PO Q6H PRN #30 tablet PRN Reason: Pain Fluticasone Nasal [place] [Flonase Nasal [place]] 1 spray EA NOSTRIL BID Melatonin [Melatonin Dissolving Tablet] 10 mg PO HS Sennosides/Docusate Sodium [Senna Plus 8.6-50 mg Softgel] 1 tab PO BID Prochlorperazine [Compazine] 10 mg PO Q6H PRN PRN Reason: Nausea Ibuprofen [Motrin] 600 mg PO Q8HR PRN PRN Reason: Pain Mirtazapine 45 mg PO HS busPIRone HCl [Buspar] 10 mg PO BID DULoxetine HCL [Cymbalta] 60 mg PO HS Ondansetron Odt [Zofran ODT] 8 mg PO Q8HR PRN PRN Reason: Nausea dexAMETHasone [Decadron] 4 mg PO BID Dicyclomine [Bentyl] 10 mg PO QID PRN PRN Reason: abdominal pain bisacodyL [Dulcolax] 10 mg RECTAL Q3D PRN PRN Reason: Constipation LORazepam [Ativan] 0.5 mg PO Q2H PRN #9 tab PRN Reason: Anxiety No Action HYDROcodone/APAP 10-325MG [[place] 10-325] 1 tab PO Q6HR PRN PRN Reason: Moderate Pain 4-6 Simethicone Chew [Mylicon Chew] 80 mg PO QID PRN PRN Reason: Bloating Scopolamine 1 mg/72 Hr Patch [TransDerm Scop] 1 patch TRANSDERM Q72H PRN PRN Reason: Nausea Discharge Medication List Latanoprost/Pf [Latanoprost 0.005% Eye Drop] 1 drop BOTH EYES HS 08/28/19 [History] Pantoprazole [Protonix] 40 mg PO DAILY 04/30/20 [History] Mirtazapine 45 mg PO HS 08/25/21 [History] Aspirin EC [Ecotrin Low Dose] 81 mg PO DAILY 11/02/21 [History] DULoxetine HCL [Cymbalta] 60 mg PO HS 11/02/21 [History] Magnesium 500 mg PO HS 11/02/21 [History] busPIRone HCl [Buspar] 10 mg PO BID 11/02/21 [History] Acetaminophen Tab [Tylenol] 500 mg PO Q6H PRN #30 tablet 04/05/22 [Rx] Fluticasone Nasal [place] [Flonase Nasal [place]] 1 spray EA NOSTRIL BID 04/15/22 [History] Melatonin [Melatonin Dissolving Tablet] 10 mg PO HS 04/19/22 [History] Ondansetron Odt [Zofran ODT] 8 mg PO Q8HR PRN 06/02/22 [History] Prochlorperazine [Compazine] 10 mg PO Q6H PRN 07/31/22 [History] Sennosides/Docusate Sodium [Senna Plus 8.6-50 mg Softgel] 1 tab PO BID 07/31/22 [History] Dicyclomine [Bentyl] 10 mg PO QID PRN 09/02/22 [History] Ibuprofen [Motrin] 600 mg PO Q8HR PRN 09/02/22 [History] bisacodyL [Dulcolax] 10 mg RECTAL Q3D PRN 09/02/22 [History] dexAMETHasone [Decadron] 4 mg PO BID 09/02/22 [History] LORazepam [Ativan] 0.5 mg PO Q2H PRN #9 tab 09/21/22 [Rx] polyethylene glycoL 3350 [Miralax] 17 gm PO DAILY PRN packet 09/21/22 [Rx] HYDROcodone/APAP 10-325MG [[place] 10-325] 1 tab PO Q6HR PRN 09/22/22 [History] Scopolamine 1 mg/72 Hr Patch [TransDerm Scop] 1 patch TRANSDERM Q72H PRN 09/22/22 [History] Simethicone Chew [Mylicon Chew] 80 mg PO QID PRN 09/22/22 [History] Follow up Appointment(s)/Referral(s): Hill Mata MD [Primary Care Provider] - 09/26/22 Patient Instructions/Handouts: Hydrocodone/Acetaminophen (By mouth), Lorazepam (By mouth), Simethicone (By mouth), Fentanyl (Absorbed through the skin), Abdominal Pain (GEN) Activity/Diet/Wound Care/Special Instructions: Activity Limited until follow-up Follow-up with primary care provider on discharge Follow-up outpatient with [facility] oncology Continue current diet Discharge Disposition: HOME SELF-CARE
== END 2022-09-21 11:40 | disposition home or self-care (01) ==
LOC: EC 20:03 → 6NMEDSUR 23:47
PROVIDERS: ADMIT Hospitalist; ATTEND Hospitalist
DX: C18.9 Malignant neoplasm of colon, unspecified (principal); C16.9 Malignant neoplasm of stomach, unspecified; E78.5 Hyperlipidemia, unspecified; M79.7 Fibromyalgia; G40.909 Epilepsy, unspecified, not intractable, without status epilepticus; K21.9 Gastro-esophageal reflux disease without esophagitis; D64.9 Anemia, unspecified; M54.9 Dorsalgia, unspecified; G89.29 Other chronic pain; F31.9 Bipolar disorder, unspecified; F41.0 Panic disorder [episodic paroxysmal anxiety]; F32.A Depression, unspecified; G47.30 Sleep apnea, unspecified; Z79.899 Other long term (current) drug therapy; Z79.82 Long term (current) use of aspirin; Z88.8 Allergy status to other drugs, medicaments and biological substances; Z86.73 Personal history of transient ischemic attack (TIA), and cerebral infarction without residual deficits; Z90.710 Acquired absence of both cervix and uterus; Z98.51 Tubal ligation status; Z96.653 Presence of artificial knee joint, bilateral; Z96.612 Presence of left artificial shoulder joint; Z87.891 Personal history of nicotine dependence; Z82.49 Family history of ischemic heart disease and other diseases of the circulatory system
CPT/HCPCS: 96376 ×5; 96360 ×2; 96361 ×5; 96372; 96374; 96375; 99284; 36415; 80053; 83605; 85025; 85610; 85730; G0378 ×4; J1200; J0500; J2405; J1170 ×7

== ENCOUNTER 2022-09-22 14:14 | Inpatient (IN) | payer MEDICARE, OTHER ==
[2022-09-22] MEDS ORDERED: SODIUM CHLORIDE 0.9% 1,000 ML IV STA (19:30)
[2022-09-22] MEDS ORDERED: ONDANSETRON 4 MG/2 ML VIAL IVP STA (19:30)
[2022-09-22] MEDS ORDERED: HYDROmorphone 1 MG/ML 1 ML SYRINGE IVP STA ×2 (19:31→21:44)
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
[2022-09-22 20:34] LABS: Anisocytosis Slight; Basophils % (A) 0 %; Eosinophils # (A) 0.1 k/uL (0-0.7); Eosinophils % (A) 1 %; HCT 33.3 % (34.0-46.0); HGB 10.4 gm/dL (11.4-16.0); Hypochromasia Marked; Lymphocytes # (A) 1.7 k/uL (1.0-4.8); Lymphocytes % (A) 31 %; MCHC 31.3 g/dL (31.0-37.0); MCV 76.5 fL (80.0-100.0); Mean Platelet Volume 7.2; Microcytosis Slight; Monocytes # (A) 0.5 k/uL (0-1.0); Monocytes % (A) 8 %; Neutrophils # (A) 3.1 k/uL (1.3-7.7); Neutrophils % (A) 56 %; Platelet Count 282 k/uL (150-450); RBC 4.35 m/uL (3.80-5.40); RDW 17.5 % (11.5-15.5); WBC 5.6 k/uL (3.8-10.6)
[2022-09-22 20:44] LABS: ALT 19 U/L (4-34); AST 31 U/L (14-36); African American GFR (CKD) >90 (>60 ml/min/1.73 sqM); Albumin 3.6 g/dL (3.5-5.0); Alkaline Phosphatase 125 U/L (38-126); Anion Gap 8 mmol/L; Blood Urea Nitrogen 8 mg/dL (7-17); Calcium 8.8 mg/dL (8.4-10.2); Carbon Dioxide 29 mmol/L (22-30); Chloride 100 mmol/L (98-107); Glucose 99 mg/dL (74-99); Non-African American GFR(CKD) >90 (>60 ml/min/1.73 sqM); Potassium 3.1 mmol/L (3.5-5.1); Sodium 137 mmol/L (137-145); Total Bilirubin 0.4 mg/dL (0.2-1.3); Total Protein 7.1 g/dL (6.3-8.2)
--- NOTE | 2022-09-22 20:49 | XR ---
EXAMINATION TYPE: XR hand complete RT DATE OF EXAM: 09/22/2022 COMPARISON: None HISTORY: Pain and swelling TECHNIQUE: 3 view right hand FINDINGS: Some degenerative joint changes at the middle finger metacarpal phalangeal joint space. Mil d diffuse proximal and distal interphalangeal joint space narrowing is present No acute fractures are evident. Suspicious soft tissue swelling is not evident. Follow up exams can be performed 7-10 days from acute trauma for continued pain IMPRESSION: 1. No acute osseous abnormality right hand. 2. Mild degenerative joint changes as discussed above
[2022-09-22] MEDS ORDERED: POTASSIUM BICARBONATE/CIT AC 20 MEQ TABLET.EFF PO ONE (21:18)
[2022-09-22] MEDS ORDERED: ACETAMINOPHEN TAB 325 MG TAB PO PRN (21:39)
[2022-09-22] MEDS ORDERED: NALOXONE 0.4 MG/ML 1 ML VIAL IV PRN (21:39)
[2022-09-22] MEDS ORDERED: HYDROcodone/APAP 5-325MG 1 EACH TAB PO PRN (21:39)
[2022-09-22] MEDS ORDERED: ONDANSETRON 4 MG/2 ML VIAL IVP PRN (21:39)
[2022-09-22] MEDS: SODIUM CHLORIDE 0.9% 1,000 ML IV SCH (22:02)
[2022-09-23] MEDS ORDERED: IBUPROFEN 600 MG TAB PO PRN
[2022-09-23] MEDS: ALPRAZolam 0.25 MG TAB PO PRN ×2 (00:34→10:08)
[2022-09-23] MEDS: HYDROmorphone 1 MG/ML 1 ML SYRINGE IVP PRN ×6 (01:33→20:07)
[2022-09-23] MEDS ORDERED: PROCHLORPERAZINE 10 MG TAB PO PRN (06:00)
[2022-09-23 07:34] LABS: Anisocytosis Slight; Basophils % (A) 1 %; Eosinophils # (A) 0.1 k/uL (0-0.7); Eosinophils % (A) 2 %; HCT 30.6 % (34.0-46.0); HGB 9.2 gm/dL (11.4-16.0); Hypochromasia Marked; Lymphocytes # (A) 1.5 k/uL (1.0-4.8); Lymphocytes % (A) 32 %; MCH 23.9 pg (25.0-35.0); MCHC 30.1 g/dL (31.0-37.0); MCV 79.5 fL (80.0-100.0); Mean Platelet Volume 7.7; Microcytosis Slight; Monocytes # (A) 0.3 k/uL (0-1.0); Monocytes % (A) 7 %; Neutrophils # (A) 2.6 k/uL (1.3-7.7); Neutrophils % (A) 55 %; Platelet Count 233 k/uL (150-450); RBC 3.84 m/uL (3.80-5.40); RDW 17.6 % (11.5-15.5); WBC 4.6 k/uL (3.8-10.6)
[2022-09-23 07:53] LABS: African American GFR (CKD) >90 (>60 ml/min/1.73 sqM); Anion Gap 3 mmol/L; Blood Urea Nitrogen 6 mg/dL (7-17); Calcium 8.1 mg/dL (8.4-10.2); Carbon Dioxide 28 mmol/L (22-30); Chloride 104 mmol/L (98-107); Glucose 95 mg/dL (74-99); Non-African American GFR(CKD) >90 (>60 ml/min/1.73 sqM); Potassium 3.3 mmol/L (3.5-5.1); Sodium 135 mmol/L (137-145)
[2022-09-23] MEDS ORDERED: polyethylene glycoL 3350 17 GM POWD.PACK PO PRN (09:00)
[2022-09-23] MEDS ORDERED: bisacodyL 10 MG SUPP RECTAL PRN (09:00)
[2022-09-23] MEDS ORDERED: SCOPOLAMINE 1 MG/72 HR PATCH TRANSDERM PRN (09:00)
[2022-09-23] MEDS ORDERED: SIMETHICONE 80 MG CHEWABLE PO PRN (09:00)
[2022-09-23] MEDS ORDERED: DICYCLOMINE 10 MG CAP PO PRN (09:00)
[2022-09-23] MEDS: dexAMETHasone 4 MG TAB PO SCH ×2 (10:08→20:10)
[2022-09-23] MEDS: ASPIRIN 81 MG PO SCH (10:08)
[2022-09-23] MEDS: SENNOSIDES-DOCUSATE SODIUM 1 EACH TAB PO SCH ×2 (10:08→20:09)
[2022-09-23] MEDS: busPIRone HCl 10 MG TAB PO SCH ×2 (10:08→20:09)
[2022-09-23] MEDS: FAMOTIDINE 20 MG TAB PO SCH ×2 (10:08→20:09)
[2022-09-23] MEDS: PANTOPRAZOLE 40 MG TABLET PO SCH (10:08)
[2022-09-23] MEDS: FLUTICASONE 50MCG/SPRAY NASAL 16GM EA NOSTRIL SCH ×3 (10:08→20:10)
[2022-09-23] MEDS: HEPARIN SODIUM,PORCINE/PF 5,000 UNIT/0.5 ML SYRINGE SQ SCH ×2 (12:31→20:09)
[2022-09-23] MEDS: SODIUM CHLORIDE 0.9% 1,000 ML IV SCH ×2 (12:32→21:35)
--- NOTE | 2022-09-23 13:54 | HP ---
HISTORY AND PHYSICAL CHIEF COMPLAINT: Abdominal pain. HISTORY OF PRESENT ILLNESS: This 82-year-old woman with past medical history of multiple medical problems including advanced metastatic colon cancer, was recently discharged with hospice. Apparently, the patient was on Dilaudid pump and the patient went outside her home and hospice apparently discharged and they would not see the patient anymore according to the staff. The patient was admitted for further evaluation and treatment. There is no history of any fever, rigors, or chills at this time. PAST MEDICAL HISTORY: Reviewed include metastatic colon cancer. Rest of the history and rest of the chart are also reviewed. HOME MEDICATIONS: Reviewed include Decadron. The rest of the history and doses reviewed. ALLERGIES: Ibuprofen, rest of allergies are reviewed. FAMILY HISTORY: History of enlarged heart. SOCIAL HISTORY: Previous history of smoking. REVIEW OF SYSTEMS: A 14-point review is negative except as mentioned. PHYSICAL EXAMINATION: VITAL SIGNS: Pulse is 80, blood pressure 130/76, and respirations 18. HEENT: Conjunctivae normal. CARDIOVASCULAR: S1, S2 muffled. RESPIRATIONS: Diminished at the bases. ABDOMEN: Soft, mildly diffuse tenderness. No guarding, no rigidity. LEGS: No edema, no swelling. NERVOUS SYSTEM: No focal deficit. SKIN: No ulcer, rash, bleeding. JOINTS: No active deforming arthropathy. LABS: Reviewed. ASSESSMENT: 1. Intractable abdominal pain. 2. Metastatic colon cancer. 3. Sleep apnea. 4. Fibromyalgia. 5. Seizure disorder. 6. Multiple medical issues. RECOMMENDATIONS: This 82-year-old woman presented with multiple medical issues. At this time, I recommend to continue current medications, symptomatic treatment, pain management. Otherwise, I would also recommend resume the home medications. Prognosis is extremely guarded as mentioned earlier. The patient is apparently kicked out of the hospice and not on hospice anymore. Had detailed discussion with son at the bedside. Prognosis guarded. Social work case management team to follow. Further recommendations to follow. MMODL / IJN: [id number] /
[2022-09-23] MEDS ORDERED: HYDROcodone/APAP 10-325MG 1 EACH TAB PO PRN (13:58)
[2022-09-23] MEDS: MELATONIN 5 MG TABLET PO SCH (20:09)
[2022-09-23] MEDS: DULoxetine HCL 60 MG CAPSULE.DR PO SCH (20:09)
[2022-09-23] MEDS: MAGNESIUM OXIDE 400 MG TAB PO SCH (20:09)
[2022-09-23] MEDS: LATANOPROST 0.005% OPHTH DROPS 2.5 ML BTL BOTH EYES SCH (21:33)
[2022-09-23] MEDS: LORazepam 0.5 MG TAB PO PRN (21:33)
[2022-09-23] MEDS: MIRTAZAPINE 45 MG TABLET PO SCH (21:33)
[2022-09-24] MEDS: HYDROmorphone 1 MG/ML 1 ML SYRINGE IVP PRN ×5 (05:20→20:23)
[2022-09-24] MEDS: LORazepam 0.5 MG TAB PO PRN ×2 (05:22→18:28)
[2022-09-24] MEDS: HEPARIN SODIUM,PORCINE/PF 5,000 UNIT/0.5 ML SYRINGE SQ SCH ×2 (08:41→20:24)
[2022-09-24] MEDS: FAMOTIDINE 20 MG TAB PO SCH ×2 (08:41→20:24)
[2022-09-24] MEDS: ASPIRIN 81 MG PO SCH (08:41)
[2022-09-24] MEDS: dexAMETHasone 4 MG TAB PO SCH ×2 (08:41→20:24)
[2022-09-24] MEDS: busPIRone HCl 10 MG TAB PO SCH ×2 (08:41→20:24)
[2022-09-24] MEDS: FLUTICASONE 50MCG/SPRAY NASAL 16GM EA NOSTRIL SCH ×2 (08:41→20:26)
[2022-09-24] MEDS: THIAMINE 100 MG TAB PO SCH (08:42)
[2022-09-24] MEDS: SENNOSIDES-DOCUSATE SODIUM 1 EACH TAB PO SCH ×2 (08:42→20:24)
[2022-09-24] MEDS: PANTOPRAZOLE 40 MG TABLET PO SCH (08:42)
[2022-09-24] MEDS: SODIUM CHLORIDE 0.9% 1,000 ML IV SCH ×2 (10:12→22:25)
[2022-09-24] MEDS: FOLIC ACID 1 MG TAB PO SCH (12:17)
[2022-09-24] MEDS: MULTIVITAMINS, THERA 1 EACH TAB PO SCH (12:17)
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
[2022-09-24] MEDS: oxyCODONE-APAP 10-325MG 1 EACH TAB PO PRN (18:28)
[2022-09-24] MEDS: MIRTAZAPINE 45 MG TABLET PO SCH (20:24)
[2022-09-24] MEDS: MAGNESIUM OXIDE 400 MG TAB PO SCH (20:24)
[2022-09-24] MEDS: MELATONIN 5 MG TABLET PO SCH (20:24)
[2022-09-24] MEDS: DULoxetine HCL 60 MG CAPSULE.DR PO SCH (20:24)
[2022-09-24] MEDS: LATANOPROST 0.005% OPHTH DROPS 2.5 ML BTL BOTH EYES SCH (20:25)
[2022-09-25] MEDS: HYDROmorphone 1 MG/ML 1 ML SYRINGE IVP PRN ×6 (00:21→21:38)
[2022-09-25] MEDS: LORazepam 0.5 MG TAB PO PRN ×3 (00:57→23:18)
[2022-09-25] MEDS: oxyCODONE-APAP 10-325MG 1 EACH TAB PO PRN ×3 (04:51→19:35)
[2022-09-25] MEDS: THIAMINE 100 MG TAB PO SCH (08:46)
[2022-09-25] MEDS: PANTOPRAZOLE 40 MG TABLET PO SCH (08:46)
[2022-09-25] MEDS: busPIRone HCl 10 MG TAB PO SCH ×2 (08:46→21:36)
[2022-09-25] MEDS: ASPIRIN 81 MG PO SCH (08:46)
[2022-09-25] MEDS: FOLIC ACID 1 MG TAB PO SCH (08:47)
[2022-09-25] MEDS: FAMOTIDINE 20 MG TAB PO SCH ×2 (08:47→21:36)
[2022-09-25] MEDS: SENNOSIDES-DOCUSATE SODIUM 1 EACH TAB PO SCH ×2 (08:47→21:36)
[2022-09-25] MEDS: MULTIVITAMINS, THERA 1 EACH TAB PO SCH (08:47)
[2022-09-25] MEDS: dexAMETHasone 4 MG TAB PO SCH ×2 (08:47→21:36)
[2022-09-25] MEDS: HEPARIN SODIUM,PORCINE/PF 5,000 UNIT/0.5 ML SYRINGE SQ SCH ×2 (08:47→21:37)
[2022-09-25] MEDS: FLUTICASONE 50MCG/SPRAY NASAL 16GM EA NOSTRIL SCH ×2 (08:50→21:46)
--- NOTE | 2022-09-25 10:31 | PN ---
PROGRESS NOTE DATE OF SERVICE: 09/24/2022 SUBJECTIVE: This is an 82-year-old woman who was admitted after intractable abdominal pain with metastatic colon cancer, is being closely monitored. No chest pain, no palpitation. Surgery has been consulted for Port-A-Cath. OBJECTIVE: VITAL SIGNS: Pulse is 79, blood pressure 147/80, and respirations 16. CHEST: Clear to auscultation. CARDIOVASCULAR: S1, S2. ABDOMEN: Soft. LABS: Reviewed. ASSESSMENT: 1. Intractable abdominal pain. 2. Metastatic colon cancer. 3. Sleep apnea. 4. Fibromyalgia. 5. Seizure disorder. 6. Multiple medical issues. RECOMMENDATIONS: Recommended to continue current medical management symptomatic treatment. Otherwise surgical evaluation for evaluation for the Port-A-Cath. Otherwise, continue the pain management. cloth printing utility worker and Case Management to follow with discharge disposition. Please note that the patient has been recently signed out of the hospice list. MMODL / IJN: [id number] /
[2022-09-25] MEDS ORDERED: Potassium Replacement Protocol 1 EACH MISC MISCELLANE PRN (11:23)
[2022-09-25] MEDS ORDERED: Magnesium Replacement Protocol 1 EACH MISC MISCELLANE PRN (11:23)
--- NOTE | 2022-09-25 12:08 | P.PN ---
Progress Note - Text Progress Note Date: 09/25/22 Patient Heather stable. Patient will be evaluated by Dr. Cam regarding Port-A-Cath removal tomorrow.
[2022-09-25] MEDS: SODIUM CHLORIDE 0.9% 1,000 ML IV SCH (19:38)
[2022-09-25] MEDS: MIRTAZAPINE 45 MG TABLET PO SCH (21:36)
[2022-09-25] MEDS: MAGNESIUM OXIDE 400 MG TAB PO SCH (21:36)
[2022-09-25] MEDS: DULoxetine HCL 60 MG CAPSULE.DR PO SCH (21:36)
[2022-09-25] MEDS: MELATONIN 5 MG TABLET PO SCH (21:36)
[2022-09-25] MEDS: LATANOPROST 0.005% OPHTH DROPS 2.5 ML BTL BOTH EYES SCH (21:37)
--- NOTE | 2022-09-25 22:54 | PN ---
PROGRESS NOTE DATE OF SERVICE: 09/25/2022 SUBJECTIVE: This is an 82-year-old woman who was admitted with intractable abdominal pain and metastatic colon cancer. No chest pain. No palpitations. No fever. Please note that the patient has been recently taken out of hospice. No chest pain. No palpitation. Surgery has seen the patient regarding the Port-A-Cath. We will continue to monitor. Further recommendations to follow. OBJECTIVE: VITAL SIGNS: On exam, pulse is 80, blood pressure 153/70, respirations 16. CHEST: Clear to auscultation. CARDIOVASCULAR: S1, S2. ABDOMEN: Soft. NERVOUS SYSTEM: No focal deficits. LABS: Sodium 130, potassium 3.3. ASSESSMENT: 1. Intractable abdominal pain. 2. Metastatic colon cancer. 3. Sleep apnea. 4. Fibromyalgia. 5. Seizure disorder. 6. Multiple medical issues. 7. Port-A-Cath. RECOMMENDATIONS: Recommend to continue current medical management and symptomatic treatment. Closely follow. Otherwise, symptomatic treatment will be provided . Further recommendations to follow. MMSHERIL / IJN: [id number] /
[2022-09-26] MEDS: HYDROmorphone 1 MG/ML 1 ML SYRINGE IVP PRN ×7 (00:38→21:11)
[2022-09-26] MEDS: oxyCODONE-APAP 10-325MG 1 EACH TAB PO PRN ×3 (01:56→18:06)
[2022-09-26] MEDS: SODIUM CHLORIDE 0.9% 1,000 ML IV SCH ×2 (04:05→16:41)
[2022-09-26 08:19] VITALS: RESP 16
[2022-09-26] MEDS: PANTOPRAZOLE 40 MG TABLET PO SCH (09:06)
[2022-09-26] MEDS: THIAMINE 100 MG TAB PO SCH (09:06)
[2022-09-26] MEDS: busPIRone HCl 10 MG TAB PO SCH ×2 (09:06→21:22)
[2022-09-26] MEDS: SENNOSIDES-DOCUSATE SODIUM 1 EACH TAB PO SCH ×2 (09:06→21:26)
[2022-09-26] MEDS: HEPARIN SODIUM,PORCINE/PF 5,000 UNIT/0.5 ML SYRINGE SQ SCH ×2 (09:06→23:09)
[2022-09-26] MEDS: ASPIRIN 81 MG PO SCH (09:06)
[2022-09-26] MEDS: FAMOTIDINE 20 MG TAB PO SCH ×2 (09:06→21:23)
[2022-09-26] MEDS: dexAMETHasone 4 MG TAB PO SCH ×2 (09:06→21:22)
[2022-09-26] MEDS: FLUTICASONE 50MCG/SPRAY NASAL 16GM EA NOSTRIL SCH ×2 (09:07→23:13)
[2022-09-26 09:23] LABS: HCT 29.9 % (37.2-46.3); HGB 9.1 g/dL (12.0-15.0); MCH 22.6 pg (27.0-32.0); MCHC 30.4 g/dL (32.0-37.0); MCV 74.4 fL (80.0-97.0); NRBC Per 100 WBC 0 /100 WBCS (0.0-0.0); Platelet Count 287 X 10*3/uL (140-440); RBC 4.02 X 10*6/uL (4.10-5.20); RDW 19.1 % (11.5-14.5)
[2022-09-26 09:28] LABS: African American GFR (CKD) 99.8 (60.0-200.0); Anion Gap 12.7 mmol/L (10.00-18.00); BUN/Creat Ratio 10.67 Ratio (12.00-20.00); Blood Urea Nitrogen 6.4 mg/dL (9.0-27.0); Calcium 8.9 mg/dL (8.7-10.3); Carbon Dioxide 25.3 mmol/L (20.0-27.5); Non-African American GFR(CKD) 86.1 (60.0-200.0); Potassium 3.4 mmol/L (3.5-5.5)
[2022-09-26] MEDS: LORazepam 0.5 MG TAB PO PRN ×2 (09:56→21:30)
[2022-09-26 10:40] LABS: Basophils # (A) 0.02 X 10*3/uL (0.00-0.10); Basophils % (A) 0.3 %; Eosinophils # (A) 0.02 X 10*3/uL (0.04-0.35); Eosinophils % (A) 0.3 %; Immature Grans, Automated 0.6 %; Lymphocytes # (A) 1.23 X 10*3/uL (0.90-5.00); Lymphocytes % (A) 17.8 %; Monocytes # (A) 0.55 X 10*3/uL (0.20-1.00); Neutrophils # (A) 5.04 X 10*3/uL (1.80-7.70)
[2022-09-26] MEDS: MULTIVITAMINS, THERA 1 EACH TAB PO SCH (13:39)
[2022-09-26] MEDS: FOLIC ACID 1 MG TAB PO SCH (13:39)
[2022-09-26] MEDS: DULoxetine HCL 60 MG CAPSULE.DR PO SCH (21:22)
[2022-09-26] MEDS: MELATONIN 5 MG TABLET PO SCH (21:22)
[2022-09-26] MEDS: MAGNESIUM OXIDE 400 MG TAB PO SCH (21:22)
[2022-09-26] MEDS: MIRTAZAPINE 45 MG TABLET PO SCH (21:23)
[2022-09-26] MEDS: LATANOPROST 0.005% OPHTH DROPS 2.5 ML BTL BOTH EYES SCH (23:10)
[2022-09-27] MEDS: HYDROmorphone 1 MG/ML 1 ML SYRINGE IVP PRN ×4 (00:57→11:57)
--- NOTE | 2022-09-27 01:19 | PN ---
PROGRESS NOTE DATE OF SERVICE: 09/26/2022 HISTORY OF PRESENT ILLNESS: This is an 82-year-old woman who was admitted with intractable abdominal pain, also was on hospice previously, but the patient apparently was signed out of the hospice. Currently, the patient has a Port-A-Cath, and we are awaiting consultation with Dr. Cm. The patient also is being followed by Dr. Hill Mata in the outpatient setting for outpatient management also. No chest pain. No palpitation. PHYSICAL EXAMINATION: VITAL SIGNS: Pulse 72, blood pressure 158/90, respirations 16. HEENT: Conjunctivae normal. NECK: No jugular venous distention. CARDIOVASCULAR: S1, S2. RESPIRATION: Breath sounds diminished at the bases. ABDOMEN: Soft, mild diffuse discomfort. LABS: Reviewed. Potassium 3.4. ASSESSMENT: 1. Intractable abdominal pain. 2. Metastatic colon cancer. 3. Port-A-Cath. 4. Sleep apnea. 5. Fibromyalgia. 6. Seizure disorder. 7. Multiple medical issues. RECOMMENDATIONS: Recommend to continue current medications, symptomatic treatment. Supplement potassium. Await Dr. Major's pharmacy input. We will continue to monitor. Further recommendations to follow. insurance risk manager and social contact worker to evaluate the outpatient disposition regarding this patient. MMODL / IJN: [id number] /
[2022-09-27] MEDS: LORazepam 0.5 MG TAB PO PRN ×2 (04:19→09:52)
[2022-09-27] MEDS: HEPARIN SODIUM,PORCINE/PF 5,000 UNIT/0.5 ML SYRINGE SQ SCH (08:41)
[2022-09-27] MEDS: SENNOSIDES-DOCUSATE SODIUM 1 EACH TAB PO SCH (08:41)
[2022-09-27] MEDS: THIAMINE 100 MG TAB PO SCH (08:41)
[2022-09-27] MEDS: ASPIRIN 81 MG PO SCH (08:41)
[2022-09-27] MEDS: busPIRone HCl 10 MG TAB PO SCH (08:42)
[2022-09-27] MEDS: MULTIVITAMINS, THERA 1 EACH TAB PO SCH (08:42)
[2022-09-27] MEDS: dexAMETHasone 4 MG TAB PO SCH (08:42)
[2022-09-27] MEDS: FLUTICASONE 50MCG/SPRAY NASAL 16GM EA NOSTRIL SCH (08:42)
[2022-09-27] MEDS: FOLIC ACID 1 MG TAB PO SCH (08:42)
[2022-09-27] MEDS: PANTOPRAZOLE 40 MG TABLET PO SCH (08:42)
[2022-09-27] MEDS: FAMOTIDINE 20 MG TAB PO SCH (08:42)
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
[2022-09-27] MEDS ORDERED: POTASSIUM CHLORIDE ER 20 MEQ TAB.ER PO STA (13:20)
--- NOTE | 2022-09-27 13:21 | P.PN ---
Subjective Progress Note Date: 09/27/22 CHIEF COMPLAINT: Abdominal pain HISTORY OF PRESENT ILLNESS: This is a-year-old female presented to hospital with abdominal pain. She was initially on hospice service she has a known history of metastatic colon cancer. Patient is no longer in hospice. Surgical service was consulted to evaluate patient's Port-A-Cath. Apparently there was concerns that the Port-A-Cath had not been working. Port-A-Cath is functioning appropriately. Afebrile. WBC 6.9 Hgb 9.1 platelets 287 sodium 140 potassium 3.4 creatinine 0.6 PHYSICAL EXAM: VITAL SIGNS: Reviewed GENERAL: Well-developed in no acute distress. HEENT: No sclera icterus. Extraocular movements grossly intact. Moist buccal mucosa. Head is atraumatic, normocephalic. Hears conversational speech. No nasal drainage. NECK: Supple without lymphadenopathy. CHEST: Non-labored respirations and equal bilateral excursions. CARDIOVASCULAR: Palpable 2+ radial pulses. ABDOMEN: Soft. MUSCULOSKELETAL: No clubbing or cyanosis. NEUROLOGIC: No focal or lateralizing signs. Cranial nerves II through XII grossly intact. PSYCH: Appropriate affect. Alert and oriented to person, place and time. SKIN: Well perfused. Good skin turgor. ASSESSMENT: 1. History of metastatic colon cancer 2. Chronic Abdominal pain 3. Prior history of bowel obstruction requiring lower anterior resection 4. Hypokalemia PLAN: -Port-A-Cath is functioning appropriately. No plans to remove Port-A-Cath -Continue supportive care -Continue regular diet -Replace potassium Physician Inclusion Internship note has been reviewed by physician. Signing provider agrees with the documented findings, assessment, and plan of care. Objective - Vital Signs Vital signs: Vital Signs Temp 98.4 F 09/27/22 08:05 Pulse 71 09/27/22 08:05 Resp 16 09/27/22 08:05 BP 167/95 09/27/22 08:05 Pulse Ox 96 09/27/22 08:05 FiO2 Intake & Output 09/26/22 09/27/22 09/27/22 18:59 06:59 18:59 Intake Total 600 590 Balance 600 590 Intake: Intake, IV Titration 600 Amount Sodium Chloride 0.9% 1, 600 000 ml @ 75 mls/hr IV . [id number] [facility] Rx#:[id number] Oral 590 Other: Voiding Method Toilet Toilet Toilet # Voids 1 4 - Labs CBC & Chem 7: 09/26/22 05:05 09/26/22 05:05
[2022-09-27 15:15] VITALS: BP 129/69; PULSE 83; TEMP 98.7
--- NOTE | 2022-09-27 20:59 | DS ---
DISCHARGE SUMMARY FINAL DIAGNOSES: 1. Intractable abdominal pain. 2. Metastatic colon cancer. 3. Port-A-Cath. 4. Sleep apnea. 5. Fibromyalgia. 6. Seizure disorder. 7. Multiple medical issues. DISCHARGE DISPOSITION: The patient will be discharged in stable condition with guarded prognosis. HISTORY OF PRESENT ILLNESS: This is an 82-year-old woman with a past medical history of multiple medical problems and was found in the hospice, but apparently the family took the patient out to hospice. The patient was admitted with pain control. K was monitored and the fentanyl patch was increased to 50 mcg. I recommended close outpatient followup with Dr. Mata and Dr. De Anda for pain management. The patient also was seen by Dr. Cm. Recommended to keep the Port-A-Cath as it is. PHYSICAL EXAMINATION: VITAL SIGNS: Stable. CARDIOVASCULAR: S1, S2. ABDOMEN: Soft. NERVOUS SYSTEM: No focal deficits. DISCHARGE MEDICATIONS: Continue with previous medications: 1. Multivitamin. 2. Folic acid. 3. Percocet 10 mg q.6h p.r.n. 4. Fentanyl 50 mcg q.72. Follow up with Dr. Mata, Dr. De Anda as an outpatient and follow up with Dr. Cm as an outpatient. Once again, the patient will be discharged in stable condition and guarded prognosis. MMODL / IJN: [id number] /
== END 2022-09-27 16:58 | disposition home or self-care (01) | DRG 948 ==
LOC: EC 14:14 → OBSVTOIN 21:39 → 5NMEDONC 21:39
PROVIDERS: ADMIT Hospitalist; ATTEND Hospitalist
DX: G89.3 Neoplasm related pain (acute) (chronic) (principal); C79.9 Secondary malignant neoplasm of unspecified site; D63.0 Anemia in neoplastic disease; G40.909 Epilepsy, unspecified, not intractable, without status epilepticus; F31.9 Bipolar disorder, unspecified; R10.13 Epigastric pain; M79.641 Pain in right hand; F41.0 Panic disorder [episodic paroxysmal anxiety]; E78.5 Hyperlipidemia, unspecified; E87.6 Hypokalemia; M79.7 Fibromyalgia; F41.9 Anxiety disorder, unspecified; K21.9 Gastro-esophageal reflux disease without esophagitis; G47.30 Sleep apnea, unspecified; H40.9 Unspecified glaucoma; M19.90 Unspecified osteoarthritis, unspecified site; Z79.82 Long term (current) use of aspirin; Z79.899 Other long term (current) drug therapy; Z96.653 Presence of artificial knee joint, bilateral; Z96.612 Presence of left artificial shoulder joint; Z98.1 Arthrodesis status; Z87.891 Personal history of nicotine dependence; Z87.11 Personal history of peptic ulcer disease; Z86.73 Personal history of transient ischemic attack (TIA), and cerebral infarction without residual deficits; Z85.038 Personal history of other malignant neoplasm of large intestine; Z88.6 Allergy status to analgesic agent; Z88.5 Allergy status to narcotic agent; Z88.7 Allergy status to serum and vaccine; Z88.8 Allergy status to other drugs, medicaments and biological substances
CPT/HCPCS: 36415; 80048; 80053; 83605; 83735; 85025; 96361; 96374; 96375; 96376; 99285

== ENCOUNTER 2022-10-03 11:44 | Inpatient (IN) | payer MEDICARE, OTHER ==
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
[2022-10-03] MEDS ORDERED: HYDROmorphone 1 MG/ML 1 ML SYRINGE IVP STA ×2 (13:24→14:20)
[2022-10-03] MEDS ORDERED: ONDANSETRON 4 MG/2 ML VIAL IVP STA (13:40)
[2022-10-03 13:47] LABS: Anisocytosis Slight; Basophils % (A) 0 %; Eosinophils # (A) 0.1 k/uL (0-0.7); Eosinophils % (A) 1 %; HCT 31.1 % (34.0-46.0); HGB 9.8 gm/dL (11.4-16.0); Hypochromasia Marked; Lymphocytes % (A) 13 %; MCH 24.4 pg (25.0-35.0); MCHC 31.6 g/dL (31.0-37.0); MCV 77.1 fL (80.0-100.0); Mean Platelet Volume 7.9; Microcytosis Slight; Monocytes # (A) 0.4 k/uL (0-1.0); Monocytes % (A) 5 %; Neutrophils # (A) 6.4 k/uL (1.3-7.7); Neutrophils % (A) 79 %; Platelet Count 283 k/uL (150-450); RBC 4.03 m/uL (3.80-5.40); RDW 17.9 % (11.5-15.5); WBC 8.1 k/uL (3.8-10.6)
[2022-10-03 14:15] LABS: ALT 13 U/L (4-34); AST 23 U/L (14-36); African American GFR (CKD) >90 (>60 ml/min/1.73 sqM); Albumin 3.6 g/dL (3.5-5.0); Alkaline Phosphatase 128 U/L (38-126); Anion Gap 11 mmol/L; Blood Urea Nitrogen 21 mg/dL (7-17); Calcium 7.9 mg/dL (8.4-10.2); Carbon Dioxide 22 mmol/L (22-30); Chloride 102 mmol/L (98-107); Glucose 118 mg/dL (74-99); Lipase <10 U/L (23-300); Non-African American GFR(CKD) >90 (>60 ml/min/1.73 sqM); Potassium 3.3 mmol/L (3.5-5.1); Sodium 135 mmol/L (137-145); Total Bilirubin 0.4 mg/dL (0.2-1.3)
[2022-10-03] MEDS ORDERED: NALOXONE 0.4 MG/ML 1 ML VIAL IV PRN (14:29)
[2022-10-03] MEDS ORDERED: HYDROmorphone 0.5 MG/0.5 ML SYRINGE IVP PRN (14:29)
[2022-10-03] MEDS ORDERED: ACETAMINOPHEN TAB 325 MG TAB PO PRN (14:29)
[2022-10-03] MEDS ORDERED: DICYCLOMINE 10 MG CAP PO STA (14:45)
--- NOTE | 2022-10-03 14:59 | XR ---
EXAMINATION TYPE: XR abdomen 1V DATE OF EXAM: 10/03/2022 Comparison: 06/02/2022 Clinical History: 82-year-old female abdominal pain Findings: Posterior and interbody lumbosacral fusion is noted. Mature lateral osseous fusion. Gassy colon is pr esent throughout. Staple line in the midline pelvis. No dilated small bowel is seen. AC-DC is noted w ithin the lower right atrium. Some patchy retrocardiac opacity is demonstrated. Supine imaging limite d for assessment of free air. Impression: Prominent gassy colon. Descending colon dilated up to 7.3 cm. Previous distal colon surgery in the [facility] pelvis. Consider either a prominent colonic ileus versus distal colon obstruction.
[2022-10-03] MEDS: SODIUM CHLORIDE 0.9% 1,000 ML IV SCH (15:01)
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
[2022-10-03] MEDS ORDERED: SIMETHICONE 80 MG CHEWABLE PO PRN (20:10)
[2022-10-03] MEDS ORDERED: polyethylene glycoL 3350 17 GM POWD.PACK PO PRN (20:10)
[2022-10-03] MEDS ORDERED: DICYCLOMINE 10 MG CAP PO PRN (20:10)
[2022-10-03] MEDS ORDERED: SCOPOLAMINE 1 MG/72 HR PATCH TRANSDERM PRN (20:10)
[2022-10-03] MEDS ORDERED: PROCHLORPERAZINE 10 MG TAB PO PRN (20:10)
[2022-10-03] MEDS ORDERED: bisacodyL 10 MG SUPP RECTAL PRN (20:10)
[2022-10-03] MEDS ORDERED: HYDROmorphone 1 MG/ML 1 ML SYRINGE IM PRN (20:11)
[2022-10-03] MEDS: oxyCODONE-APAP 10-325MG 1 EACH TAB PO PRN (20:55)
[2022-10-03] MEDS: FLUTICASONE 50MCG/SPRAY NASAL 16GM EA NOSTRIL SCH (20:56)
[2022-10-03] MEDS: LATANOPROST 0.005% OPHTH DROPS 2.5 ML BTL BOTH EYES SCH (20:58)
[2022-10-03] MEDS: DULoxetine HCL 60 MG CAPSULE.DR PO SCH (20:58)
[2022-10-03] MEDS: SENNOSIDES-DOCUSATE SODIUM 1 EACH TAB PO SCH (20:58)
[2022-10-03] MEDS: MELATONIN 5 MG TABLET PO SCH (20:58)
[2022-10-03] MEDS: busPIRone HCl 10 MG TAB PO SCH (20:58)
[2022-10-03] MEDS: dexAMETHasone 4 MG TAB PO SCH (20:59)
[2022-10-03] MEDS: MAGNESIUM OXIDE 400 MG TAB PO SCH (20:59)
[2022-10-03] MEDS: MIRTAZAPINE 45 MG TABLET PO SCH (20:59)
[2022-10-03] MEDS: HYDROmorphone 1 MG/ML 1 ML SYRINGE IVP PRN (22:08)
[2022-10-04] MEDS: ONDANSETRON 4 MG/2 ML VIAL IVP PRN (03:53)
[2022-10-04] MEDS: SODIUM CHLORIDE 0.9% 1,000 ML IV SCH ×2 (03:55→16:09)
[2022-10-04] MEDS: HYDROmorphone 1 MG/ML 1 ML SYRINGE IVP PRN ×6 (07:01→22:39)
[2022-10-04] MEDS: ASPIRIN 81 MG PO SCH (08:19)
[2022-10-04] MEDS: SENNOSIDES-DOCUSATE SODIUM 1 EACH TAB PO SCH ×2 (08:20→21:14)
[2022-10-04] MEDS: THIAMINE 100 MG TAB PO SCH (08:20)
[2022-10-04] MEDS: PANTOPRAZOLE 40 MG TABLET PO SCH (08:20)
[2022-10-04] MEDS: dexAMETHasone 4 MG TAB PO SCH ×2 (08:20→21:14)
[2022-10-04] MEDS: busPIRone HCl 10 MG TAB PO SCH ×2 (08:29→21:14)
[2022-10-04] MEDS: FLUTICASONE 50MCG/SPRAY NASAL 16GM EA NOSTRIL SCH ×2 (09:43→21:15)
[2022-10-04 09:53] LABS: Anisocytosis Slight; HCT 29.7 % (34.0-46.0); Hypochromasia Marked; MCH 23.5 pg (25.0-35.0); MCHC 30.2 g/dL (31.0-37.0); MCV 77.9 fL (80.0-100.0); Mean Platelet Volume 8.5; Microcytosis Slight; Platelet Count 312 k/uL (150-450); RBC 3.82 m/uL (3.80-5.40); RDW 18.2 % (11.5-15.5); WBC 7.5 k/uL (3.8-10.6)
[2022-10-04 10:12] LABS: African American GFR (CKD) >90 (>60 ml/min/1.73 sqM); Anion Gap 12 mmol/L; Blood Urea Nitrogen 30 mg/dL (7-17); Calcium 8.4 mg/dL (8.4-10.2); Carbon Dioxide 21 mmol/L (22-30); Chloride 103 mmol/L (98-107); Glucose 121 mg/dL (74-99); Magnesium 2.6 mg/dL (1.6-2.3); Non-African American GFR(CKD) >90 (>60 ml/min/1.73 sqM); Potassium 3.8 mmol/L (3.5-5.1); Sodium 136 mmol/L (137-145)
[2022-10-04] MEDS: oxyCODONE-APAP 10-325MG 1 EACH TAB PO PRN ×2 (10:53→17:14)
[2022-10-04] MEDS: FOLIC ACID 1 MG TAB PO SCH (11:24)
[2022-10-04] MEDS: LORazepam 1 MG TAB PO PRN ×3 (11:24→23:45)
[2022-10-04] MEDS: MULTIVITAMINS, THERA 1 EACH TAB PO SCH (11:24)
[2022-10-04 14:18] LABS: Appearance,Urine Clear (Clear); Bilirubin,Urine 1+ (Negative); Blood,Urine Negative (Negative); Color,Urine Yellow; Glucose,Urine (UA) Negative (Negative); Ketones,Urine 3+ (Negative); Leukocyte Esterase,Urine Negative (Negative); Nitrite,Urine Negative (Negative); PH, Urine 5.5 (5.0-8.0); Protein,Urine Trace (Negative); Specific Gravity,Urine 1.028 (1.001-1.035); Urobilinogen,Urine <2.0 mg/dL (<2.0)
--- NOTE | 2022-10-04 15:52 | CT ---
EXAMINATION TYPE: CT abdomen pelvis w con CT DLP: 911.7 mGycm, Automated exposure control for dose reduction was used. DATE OF EXAM: 10/04/2022 3:30 PM COMPARISON: CT 07/31/2022 CLINICAL INDICATION:Female, 82 years old with history of abdominal pain and distention; abdominal rad n and distention TECHNIQUE: Axial CT of the abdomen and pelvis. Sagittal and coronal reformats were created on a [employer] workstation. Contrast used:70 mL of Isovue 300 with IV Contrast, Oral contrast used: without Oral Contrast FINDINGS: LOWER CHEST: Unremarkable ABDOMEN LIVER: Scattered hepatic lesions are seen throughout the colon of which are indeterminate. These are new from prior example includes a large one in the right hepatic lobe measuring 2.1 cm and near the d iaphragm in the right hepatic lobe measuring 2.0 cm. Posteriorly along the liver surface is a soft ti ssue area that is increased in size from prior now measuring 2.7 x 1.3 cm, previously more conspicuou s measuring 1.4 x 0.6 cm. GALLBLADDER AND BILE DUCTS: Unremarkable. PANCREAS: Unremarkable. SPLEEN: Unremarkable. ADRENAL GLANDS: Unremarkable. KIDNEYS AND URETERS: No evidence of hydronephrosis or renal calculus. The ureters are unremarkable. PELVIS BLADDER: Unremarkable REPRODUCTIVE: Left ovarian complex cyst which is increase in size now measuring 4.4 x 3.7 cm (previou sly 2.6 cm) and on the right complex cystic area measuring 3.6 x 2.8 cm (previously 4.1 cm). ABDOMEN & PELVIS STOMACH AND BOWEL: Anastomotic site within the sigmoid rectal junction. There is upstream dilation of the large bowel measuring up to 7.6 cm. That extends to the cecum. There are anterior feces levels w ith throughout the large bowel. PERITONEUM/RETROPERITONEUM: No evidence of pneumoperitoneum or free fluid. . VASCULATURE: No evidence of aortic aneurysm. MUSCULOSKELETAL: No acute osseous abnormalities LYMPH NODES: No gross evidence for lymphadenopathy. SOFT TISSUE/ABDOMINAL WALL: There is soft tissue nodules in the area of prior suspected surgical port sites which have calcifications on today's exam. Appears similar to prior. Measuring up to 2.2 x 2.2 cm on the right and 2.6 x 2.2 cm on the left. Fat-containing left inguinal hernia. IMPRESSION: 1. Postsurgical changes to the rectosigmoid junction with upstream extensive distention of the colon . Findings suggest at least partial large bowel obstruction. 2. Bilateral adnexal cystic structures of which on the left has increased in size and on the right h as slightly decreased in size. Clinical correlation advised consider ultrasound if not already perfor med. 3. Scattered indeterminate lesions throughout the liver parenchyma which are new and suspicious for metastatic disease until proven otherwise. 4. Port site soft tissue nodularity bilaterally increasing in size from priors especially since 04/14. Findings suggest malignancy implants.
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
[2022-10-04] MEDS: LATANOPROST 0.005% OPHTH DROPS 2.5 ML BTL BOTH EYES SCH (21:14)
[2022-10-04] MEDS: DULoxetine HCL 60 MG CAPSULE.DR PO SCH (21:14)
[2022-10-04] MEDS: MELATONIN 5 MG TABLET PO SCH (21:14)
[2022-10-04] MEDS: MIRTAZAPINE 45 MG TABLET PO SCH (21:14)
[2022-10-04] MEDS: MAGNESIUM OXIDE 400 MG TAB PO SCH (21:14)
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
[2022-10-05] MEDS: HYDROmorphone 1 MG/ML 1 ML SYRINGE IVP PRN ×6 (04:13→20:31)
[2022-10-05] MEDS: PANTOPRAZOLE 40 MG TABLET PO SCH (06:14)
[2022-10-05] MEDS: SODIUM CHLORIDE 0.9% 1,000 ML IV SCH ×2 (06:14→20:30)
[2022-10-05] MEDS: LORazepam 1 MG TAB PO PRN ×2 (06:14→12:52)
[2022-10-05] MEDS: FLUTICASONE 50MCG/SPRAY NASAL 16GM EA NOSTRIL SCH ×2 (07:54→20:31)
[2022-10-05] MEDS: THIAMINE 100 MG TAB PO SCH (08:25)
[2022-10-05] MEDS: SENNOSIDES-DOCUSATE SODIUM 1 EACH TAB PO SCH ×2 (08:25→20:31)
[2022-10-05] MEDS: busPIRone HCl 10 MG TAB PO SCH ×2 (08:25→20:30)
[2022-10-05] MEDS: dexAMETHasone 4 MG TAB PO SCH ×2 (08:25→20:31)
[2022-10-05] MEDS: ASPIRIN 81 MG PO SCH (08:25)
[2022-10-05] MEDS: oxyCODONE-APAP 10-325MG 1 EACH TAB PO PRN ×2 (10:09→16:28)
[2022-10-05] MEDS: ONDANSETRON 4 MG/2 ML VIAL IVP PRN (10:09)
[2022-10-05] MEDS: MULTIVITAMINS, THERA 1 EACH TAB PO SCH (11:50)
[2022-10-05] MEDS: FOLIC ACID 1 MG TAB PO SCH (11:50)
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
--- NOTE | 2022-10-05 15:28 | P.PN ---
Subjective Progress Note Date: 10/05/22 CHIEF COMPLAINT: Abdominal pain HISTORY OF PRESENT ILLNESS: Patient has a known history of stage IV ovarian cancer and metastatic colon cancer. Patient continues to have abdominal pain. She reports no flatus or bowel movement. She does report nausea. Computed tomography scan has shown postsurgical changes to the rectosigmoid sigmoid junction with upstream extensive distention of the colon. Findings suggest at least partial large bowel obstruction. Bilateral adnexal cystic structures of which on the left has increased in size and on the right has slightly decreased in size. Scattered indeterminate lesions throughout the liver parenchyma which are new and suspicious for metastatic disease until proven otherwise. Port site soft tissue nodularity bilaterally increasing in size. Findings suggest malignancy implants. Afebrile. Mildly tachycardic. Elevated BP. WBC is 7.5 Hgb is 9.0 plt 312 sodium 136 potassium 3.8 creatinine 0.41 magnesium 2.6 PHYSICAL EXAM: VITAL SIGNS: Reviewed GENERAL: Well-developed in no acute distress. HEENT: No sclera icterus. Extraocular movements grossly intact. Moist buccal mucosa. Head is atraumatic, normocephalic. Hears conversational speech. No nasal drainage. NECK: Supple without lymphadenopathy. CHEST: Non-labored respirations and equal bilateral excursions. CARDIOVASCULAR: Palpable 2+ radial pulses. ABDOMEN: Distended. Diffuse tenderness. MUSCULOSKELETAL: No clubbing or cyanosis. NEUROLOGIC: No focal or lateralizing signs. Cranial nerves II through XII grossly intact. PSYCH: Appropriate affect. Alert and oriented to person, place and time. SKIN: Well perfused. Good skin turgor. ASSESSMENT: 1. Abdominal pain 2. Colon obstruction 3. History of abdominal surgeries 4. History of colorectal cancer 5. History of stage IV ovarian cancer PLAN: -Patient is scheduled for open laparotomy with diverting colostomy with Dr. Cm -Nothing by mouth after midnight -Patient can have ice chips and popsicles today -Continue supportive care -Continue pain management -Continue IV fluids Physician Community Living Instructor note has been reviewed by physician. Signing provider agrees with the documented findings, assessment, and plan of care. Objective - Vital Signs Vital signs: Vital Signs Temp 98.7 F 10/05/22 07:00 Pulse 110 H 10/05/22 07:00 Resp 17 10/05/22 07:00 BP 170/85 10/05/22 07:00 Pulse Ox 97 10/05/22 07:00 FiO2 Intake & Output 10/04/22 10/05/22 10/05/22 18:59 06:59 18:59 Output Total 700 Balance -700 Output: Urine 700 Other: Voiding Method Bedside Commode External Catheter External Catheter # Voids 1 0 1 - Labs CBC & Chem 7: 10/04/22 09:29 10/04/22 09:29
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
--- NOTE | 2022-10-05 17:16 | P.PN ---
Subjective Progress Note Date: 10/05/22 She is an 82-year-old female who was just on hospice care for stage IV ovarian cancer and abdominal pain presents to the ER for abdominal pain. Apparently patient had lost her hospice care due to family members taking her opiate medications. Patient was most recently admitted last month. Patient has hi story of metastatic colon cancer. The ROS documented in this emergency department record has been reviewed and confirmed by me. Those systems with pertinent positive or negative responses have been documented in the HPI. All other systems are other negative and/or noncontributory. Computed tomography scan has shown postsurgical changes to the rectosigmoid sigmoid junction with upstream extensive distention of the colon. Findings suggest at least partial large bowel obstruction. Bilateral adnexal cystic structures of which on the left has increased in size and on the right has slightly decreased in size. Scattered indeterminate lesions throughout the liver parenchyma which are new and suspicious for metastatic disease until proven otherwise. Port site soft tissue nodularity bilaterally increasing in size. Findings suggest malignancy implants. ---WBC is 7.5 Hgb is 9.0 plt 312 sodium 136 potassium 3.8 creatinine 0.41 magnesium 2.6 Surgery on board and planning to take patient for open laparotomy with diverting colostomy - Pain management has been consulted and recommendations are pending Objective - Vital Signs Vital signs: Vital Signs Temp 98.7 F 10/05/22 07:00 Pulse 110 H 10/05/22 07:00 Resp 17 10/05/22 07:00 BP 170/85 10/05/22 07:00 Pulse Ox 97 10/05/22 07:00 FiO2 Intake & Output 10/04/22 10/05/22 10/05/22 18:59 06:59 18:59 Output Total 700 Balance -700 Output: Urine 700 Other: Voiding Method Bedside Commode External Catheter External Catheter # Voids 1 0 1 - Exam General Impression: Alert and oriented x3, not in acute distress HEENT: Normocephalic atraumatic, extra-ocular movements intact, pupils equal and reactive to light bilaterally, mucous membranes moist. Cardiovascular: Heart regular rate and rhythm Chest: Able to complete full sentences, no retractions, no tachypnea Abdomen: abdomen soft, diffuse abdominal tenderness, non-distended, no organomegaly Musculoskeletal: Pulses present and equal in all extremities, no peripheral edema Motor: no focal deficits noted Neurological: CN II-XII grossly intact, no focal motor or sensory deficits noted Skin: Intact with no visualized rashes Psych: Normal affect and mood - Labs CBC & Chem 7: 10/04/22 09:29 10/04/22 09:29 Labs: Abnormal Lab Results - Last 24 Hours (Table) 10/03/22 Range/Units 13:41 Urine Protein Trace H (Negative) Urine Ketones 3+ H (Negative) Urine Bilirubin 1+ H (Negative) Assessment and Plan Assessment: 1. Uncontrolled pain 2. Stage IV ovarian cancer 3. Hyperlipidemia 4. TIA/CVA 5. Fibromyalgia 6. Gastroesophageal looks disease 7. Seizure disorder 8. Sleep disorder, uses BiPAP/CPAP 9. Osteoarthritis Patient has been admitted to hospice but lost her privileges because of family member using her narcotics Patient will be admitted to the hospital for pain control We will consult hospice for further input
[2022-10-05] MEDS: DULoxetine HCL 60 MG CAPSULE.DR PO SCH (20:30)
[2022-10-05] MEDS: MIRTAZAPINE 45 MG TABLET PO SCH (20:30)
[2022-10-05] MEDS: LATANOPROST 0.005% OPHTH DROPS 2.5 ML BTL BOTH EYES SCH (20:31)
[2022-10-05] MEDS: MAGNESIUM OXIDE 400 MG TAB PO SCH (20:31)
[2022-10-05] MEDS: MELATONIN 5 MG TABLET PO SCH (20:31)
[2022-10-06] MEDS: HYDROmorphone 1 MG/ML 1 ML SYRINGE IVP PRN ×7 (00:21→19:45)
[2022-10-06] MEDS: LORazepam 1 MG TAB PO PRN ×2 (00:21→13:20)
[2022-10-06] MEDS: PANTOPRAZOLE 40 MG TABLET PO SCH (05:42)
[2022-10-06] MEDS: oxyCODONE-APAP 10-325MG 1 EACH TAB PO PRN ×2 (05:42→13:21)
[2022-10-06 06:13] LABS: Anisocytosis Slight; HCT 26.6 % (34.0-46.0); HGB 8.1 gm/dL (11.4-16.0); Hypochromasia Marked; MCH 23.8 pg (25.0-35.0); MCHC 30.4 g/dL (31.0-37.0); MCV 78.4 fL (80.0-100.0); Mean Platelet Volume 8.5; Microcytosis Slight; Platelet Count 341 k/uL (150-450); RDW 18.5 % (11.5-15.5); WBC 8.5 k/uL (3.8-10.6)
[2022-10-06 06:30] LABS: African American GFR (CKD) >90 (>60 ml/min/1.73 sqM); Anion Gap 8 mmol/L; Blood Urea Nitrogen 16 mg/dL (7-17); Calcium 8.4 mg/dL (8.4-10.2); Carbon Dioxide 26 mmol/L (22-30); Chloride 104 mmol/L (98-107); Glucose 128 mg/dL (74-99); Non-African American GFR(CKD) >90 (>60 ml/min/1.73 sqM); Potassium 3.4 mmol/L (3.5-5.1); Sodium 138 mmol/L (137-145)
[2022-10-06 06:33] LABS: INR 1.1 (<1.2); Prothrombin Time 11.1 sec (9.0-12.0)
[2022-10-06] MEDS: busPIRone HCl 10 MG TAB PO SCH ×2 (07:38→20:23)
[2022-10-06] MEDS: ASPIRIN 81 MG PO SCH ×2 (07:38→08:57)
[2022-10-06] MEDS: SENNOSIDES-DOCUSATE SODIUM 1 EACH TAB PO SCH ×3 (07:38→20:21)
[2022-10-06] MEDS: THIAMINE 100 MG TAB PO SCH ×2 (07:38→08:58)
[2022-10-06] MEDS: dexAMETHasone 4 MG TAB PO SCH ×3 (07:38→20:22)
[2022-10-06] MEDS: FLUTICASONE 50MCG/SPRAY NASAL 16GM EA NOSTRIL SCH ×2 (08:57→20:22)
[2022-10-06] MEDS: SODIUM CHLORIDE 0.9% 1,000 ML IV SCH (10:50)
[2022-10-06] MEDS ORDERED: POTASSIUM CHLORIDE 10 MEQ in WATER FOR INJECTION 1 100ML.BAG IVPB STA (11:02)
[2022-10-06] MEDS: FOLIC ACID 1 MG TAB PO SCH (11:23)
[2022-10-06] MEDS: MULTIVITAMINS, THERA 1 EACH TAB PO SCH (11:23)
--- NOTE | 2022-10-06 11:40 | P.PN ---
Subjective Records: She is an 82-year-old female who was just on hospice care for stage IV ovarian cancer and abdominal pain presents to the ER for abdominal pain. Apparently patient had lost her hospice care due to family members taking her opiate medications. Patient was most recently admitted last month. Patient has history of metastatic colon cancer. The ROS documented in this emergency department record has been reviewed and confirmed by me. Those systems with pertinent positive or negative responses have been documented in the HPI. All other systems are other negative and/or noncontributory. Computed tomography scan has shown postsurgical changes to the rectosigmoid sigmoid junction with upstream extensive distention of the colon. Findings suggest at least partial large bowel obstruction. Bilateral adnexal cystic structures of which on the left has increased in size and on the right has slightly decreased in size. Scattered indeterminate lesions throughout the liver parenchyma which are new and suspicious for metastatic disease until proven otherwise. Port site soft tissue nodularity bilaterally increasing in size. Findings suggest malignancy implants. ---WBC is 7.5 Hgb is 9.0 plt 312 sodium 136 potassium 3.8 creatinine 0.41 magnesium 2.6 Surgery on board and planning to take patient for open laparotomy with diverting colostomy - Pain management has been consulted and recommendations are pending 10/06/2022 Patient is an 82 years old female with past medical history of CVA/TIA, fibromyalgia, GERD, hyperlipidemia, memory impairment, osteoarthritis, seizure disorder, sleep apnea on CPAP/BiPAP, colon cancer with bowel obstruction, chronic back pain. who presents with abdominal pain with evidence of colonic obstruction on the top of her chronic pain syndrome. Patient has been evaluated by surgery team and she is a status post lower anterior resection of the colon Mildly low potassium 3.4 with be replaced Patient is mildly tachycardic and hypertensive secondary to pain. WBC is normal, hemoglobin is slight drop 9.8 down to 9.0. She remains on normal saline 75 mm/h, I checked with the patient and medical records she has no history of atrial fibrillation and she was not Eliquis before. Patient currently on aspirin home dose of 81 mg daily Objective - Vital Signs Vital signs: Vital Signs Temp 98.2 F 10/06/22 07:25 Pulse 96 10/06/22 07:25 Resp 16 10/06/22 07:25 BP 177/79 10/06/22 07:25 Pulse Ox 96 10/06/22 07:25 FiO2 Intake & Output 01/04/23 01/05/23 01/05/23 18:59 06:59 18:59 Intake Total 1500 Output Total 250 Balance -250 1500 Intake: Intake, IV Titration 1500 Amount Sodium Chloride 0.9% 1, 1500 000 ml @ 75 mls/hr IV . [id number] [facility] Rx#:[id number] Output: Urine 250 Other: Voiding Method External Catheter External Catheter External Catheter # Voids 1 - Exam GENERAL: The patient is alert and oriented x3, not in any acute distress. Well developed, well nourished. HEENT: Pupils are round and equally reacting to light. EOMI. No scleral icterus. No conjunctival pallor. Normocephalic, atraumatic. No pharyngeal erythema. No thyromegaly. CARDIOVASCULAR: S1 and S2 present. No murmurs, rubs, or gallops. PULMONARY: Chest is clear to auscultation, no wheezing or crackles. -ABDOMEN: Soft, tender, nondistended, normoactive bowel sounds. No palpable organomegaly. Surgical wound with a dressing in place, rest of exam is deferred to surgery primary team MUSCULOSKELETAL: No joint swelling or deformity. EXTREMITIES: No cyanosis, clubbing, or pedal edema. NEUROLOGICAL: Gross neurological examination did not reveal any focal deficits. SKIN: No rashes. no petechiae. - Labs CBC & Chem 7: 10/06/22 05:26 10/06/22 05:26 Labs: Abnormal Lab Results - Last 24 Hours (Table) 10/06/22 10/06/22 10/06/22 Range/Units 05:26 05:26 05:26 RBC 3.40 L (3.80-5.40) m/uL Hgb 8.1 L (11.4-16.0) gm/dL Hct 26.6 L (34.0-46.0) % MCV 78.4 L (80.0-100.0) fL MCH 23.8 L (25.0-35.0) pg MCHC 30.4 L (31.0-37.0) g/dL RDW 18.5 H (11.5-15.5) % APTT 19.0 L (22.0-30.0) sec Potassium 3.4 L (3.5-5.1) mmol/L Creatinine 0.50 L (0.52-1.04) mg/dL Glucose 128 H (74-99) mg/dL Assessment and Plan Assessment: 1. Sigmoid colon cancer; patient is status post low anterior sigmoid resection and umbilical hernia repair; POD #2 - Continue with postop management as per surgery primary team, including pain management - Continue with gentle hydration and advance diet per surgery team - Monitor labs and vitals 2. Hypertension; metoprolol 50 mg twice a day and Maxzide 30 7. 525 milligrams twice a day; amlodipine 10 mg by mouth daily at bedtime 3. Hyperlipidemia; patient takes Lipitor 40 mg by mouth daily at bedtime 4. History of memory impairment 5. TIA/CVA; patient is on aspirin and Lipitor 6. History of Gastroesophageal reflux disease; omeprazole 20 mg twice a day 7. history of sleep apnea, not an active issue. 8. Chronic low back pain, I activation 9. Chronic anemia complicated by postoperative anemia which is expected, keep monitoring hemoglobin, Give iron pills 10 days DVT prophylaxis; SCDs/ resume systemic anticoagulation once cleared by surgery CODE STATUS; full code Discussed with bed side nurse today
[2022-10-06] MEDS: FERROUS SULFATE 325 MG TAB PO SCH ×2 (12:35→16:42)
--- NOTE | 2022-10-06 17:57 | P.PN ---
Subjective Progress Note Date: 10/06/22 CHIEF COMPLAINT: Metastatic colon cancer HISTORY OF PRESENT ILLNESS: The patient is a 82-year-old female who presents with obstructive metastatic colon cancer of the pelvis. No reports of bowel movements or flatus. Patient and family considering palliative care including surgical intervention for obstructive colon cancer ROS: No reports of nausea and vomiting. No bowel movements. No fevers or c hills. No new chest pain. No productive sputum PHYSICAL EXAM: VITAL SIGNS: Reviewed CONSTITUTIONAL: Well developed. Minimal distress. EYES: Conjuctivae without sclera icterus. Extraocular movements grossly intact. HEAD, EARS, NOSE, THROAT: Moist buccal mucosa. Head is atraumatic, normocephal ic. Hears conversational speech. No nasal drainage. RESPIRATORY: Non-labored respirations and equal bilateral excursions. CARDIOVASCULAR: Palpable 2+ radial pulses. ABDOMEN: Distended. No diffuse peritonitis MUSCULOSKELETAL: No gross deformity of the lower extremities noted. No clubbing. No cyanosis. SKIN: Good skin turgor. Well perfused. NEUROLOGIC: Cranial nerves II through XII grossly intact. No focal or lateralizing signs. PSYCH: Flat affect. Alert and oriented to person, place and time. STUDIES: CT of the abdomen and pelvis and in the liver review demonstrates dilated ascending transverse descending colon with normal caliber at the rectum. Multiple intra-abdominal deposits of metastatic cancer identified including the subcutaneous tissue. This is my independent interpretation. CLINICAL LABS: Reviewed. WBC normal. Hemoglobin low 8.1 chronic anemia. Creatinine normal 0.50 ASSESSMENT: 1. Metastatic obstructive colon cancer sigmoid colon PLAN: 1. End of life care was discussed with patient and family. Hospice at this time being sought. 2. Palliative diverting colostomy for colonic obstruction reviewed. Patient and family requesting surgical intervention. 3. Patient is elevated risk due to metastatic intra-abdominal processes and pre-existing comorbid conditions. Objective - Vital Signs Vital signs: Vital Signs Temp 99.2 F 10/06/22 15:00 Pulse 97 10/06/22 15:00 Resp 12 10/06/22 15:00 BP 167/94 10/06/22 15:00 Pulse Ox 98 10/06/22 15:00 FiO2 Intake & Output 10/05/22 10/06/22 10/06/22 18:59 06:59 18:59 Intake Total 1500 Output Total 250 Balance -250 1500 Intake: Intake, IV Titration 1500 Amount Sodium Chloride 0.9% 1, 1500 000 ml @ 75 mls/hr IV . [id number] [facility] Rx#:[id number] Output: Urine 250 Other: Voiding Method External Catheter External Catheter External Catheter # Voids 1 2 - Labs CBC & Chem 7: 10/06/22 05:26 10/06/22 05:26 Labs: Abnormal Lab Results - Last 24 Hours (Table) 10/06/22 10/06/22 10/06/22 Range/Units 05:26 05:26 05:26 RBC 3.40 L (3.80-5.40) m/uL Hgb 8.1 L (11.4-16.0) gm/dL Hct 26.6 L (34.0-46.0) % MCV 78.4 L (80.0-100.0) fL MCH 23.8 L (25.0-35.0) pg MCHC 30.4 L (31.0-37.0) g/dL RDW 18.5 H (11.5-15.5) % APTT 19.0 L (22.0-30.0) sec Potassium 3.4 L (3.5-5.1) mmol/L Creatinine 0.50 L (0.52-1.04) mg/dL Glucose 128 H (74-99) mg/dL
[2022-10-06] MEDS: MELATONIN 5 MG TABLET PO SCH (20:15)
[2022-10-06] MEDS: DULoxetine HCL 60 MG CAPSULE.DR PO SCH (20:21)
[2022-10-06] MEDS: MIRTAZAPINE 45 MG TABLET PO SCH (20:22)
[2022-10-06] MEDS: LATANOPROST 0.005% OPHTH DROPS 2.5 ML BTL BOTH EYES SCH (20:22)
[2022-10-06] MEDS: MAGNESIUM OXIDE 400 MG TAB PO SCH (20:23)
[2022-10-06] MEDS ORDERED: PROPOFOL 10 MG/ML 20 ML VIAL IV ONE (21:53)
[2022-10-06] MEDS ORDERED: SODIUM CHLORIDE 0.9% 1,000 ML IV ONE (21:53)
[2022-10-06] MEDS ORDERED: NEOSTIGMINE 1 MG/ML 10 ML VIAL ONE (21:53)
[2022-10-06] MEDS ORDERED: LIDOCAINE 2% INJ 20 MG/ML (2 ML VIAL) ONE (21:53)
[2022-10-06] MEDS ORDERED: GLYCOPYRROLATE 0.2 MG/ML 2 ML VIAL ONE (21:53)
[2022-10-06] MEDS ORDERED: ROCURONIUM 10 MG/ML (5 ML VIAL) IV ONE (21:53)
[2022-10-06] MEDS ORDERED: SUCCINYLCHOLINE CHLORIDE 200 MG/10 ML VIAL IV ONE (21:53)
[2022-10-06] MEDS ORDERED: fentaNYL (PF) 50 MCG/ML 2 ML AMP ONE (21:53)
[2022-10-06] MEDS ORDERED: HYDROmorphone (PF) 1 MG/ML ONE (21:53)
[2022-10-06] MEDS ORDERED: ceFAZolin 1,000 MG VIAL ONE (21:53)
[2022-10-06] MEDS ORDERED: KETAMINE 10 MG/ML 20 ML VIAL ONE (21:53)
[2022-10-06] MEDS ORDERED: MIDAZOLAM 2 MG/2 ML VIAL ONE (21:53)
[2022-10-06] MEDS ORDERED: LACTATED RINGERS 1,000 ML IV ONE ×2 (22:13→23:26)
[2022-10-06] MEDS ORDERED: metroNIDAZOLE-NS PMX 500 MG in SALINE 1 100ML.BAG IVPB STA (22:25)
[2022-10-06] MEDS ORDERED: SODIUM CHLORIDE 0.9% 100 ML with ceFAZolin 2,000 MG IV ONE ×2 (22:25)
[2022-10-06] MEDS ORDERED: metroNIDAZOLE-NS PMX 500 MG in SALINE 1 100ML.BAG IVPB ONE (23:00)
[2022-10-07] MEDS ORDERED: HYDROmorphone 0.5 MG/0.5 ML SYRINGE IVP ONE ×3 (01:08→01:35)
[2022-10-07] MEDS ORDERED: BENZOCAINE/MENTHOL LOZENG 1 EACH LOZENGE MUCOUS MEM PRN (01:13)
[2022-10-07] MEDS ORDERED: ONDANSETRON 4 MG/2 ML VIAL IVP ONE (01:28)
--- NOTE | 2022-10-07 01:33 | P.OP ---
Date of Procedure: 10/07/22 Description of Procedure: SURGEON: BASIM PARDO MD PREOPERATIVE DIAGNOSES: 1. Large bowel obstruction due to metastatic colon cancer 2. Chronic constipation 3. Chronic pain syndrome 4. Gastroesophageal reflux disease 5. Fibromyalgia 6. Depressive disorder 7. Anxiety disorder 8. Traumatic brain injury 9. Bipolar disorder 10. Obstructive sleep apnea 11. Hyperlipidemia 12. Glaucoma 13. Irritable bowel syndrome 14. Right ovarian cyst 15. Metastatic pelvic peritoneal tumor deposits 16. Abdominal ascites POSTOPERATIVE DIAGNOSES: 1. Large bowel obstruction due to metastatic colon cancer 2. Chronic constipation 3. Chronic pain syndrome 4. Gastroesophageal reflux disease 5. Fibromyalgia 6. Depressive disorder 7. Anxiety disorder 8. Traumatic brain injury 9. Bipolar disorder 10. Obstructive sleep apnea 11. Hyperlipidemia 12. Glaucoma 13. Irritable bowel syndrome 14. Right ovarian cyst 15. Metastatic pelvic peritoneal tumor deposits 16. Abdominal ascites 17. Metastatic peritoneal adhesions OPERATION: 1. Exploratory laparotomy decompressive cecotomy and transverse colon colotomy due to large bowel obstruction 2. Extensive lysis of adhesions of metastatic tumor deposits pelvis, right upper quadrant 3. Cecostomy 4. Royer's procedure descending colostomy for large bowel obstruction, sigmoid colon, mucous fistula 5. Placement of universal PREVENA wound VAC system, 25 x 2 cm 6. Drainage of intra-abdominal abscess 100 mL, pelvis ANESTHESIA: General ESTIMATED BLOOD LOSS: 50mL. SPECIMENS REMOVED: None COMPLICATIONS: None. Condition: stable Disposition: floor Operative Findings: 1. Abdominal clear ascites drained, 100 mL 2. Moderate distention cecum transverse colon over 6 cm addressed with decompressive cecotomy and transverse colon colotomy 3. Multiple peritoneal adhesions due to metastatic colon cancer with near obstruction at hepatic flexure and sigmoid colon 4. Index colon cancer at ascending colon 5. Due to near-complete obstruction at splenic flexure, cecostomy performed 6. Descending colostomy to address obstruction and sigmoid colon and as mucous fistula INDICATIONS: The patient is a 82-year-old female with metastatic colon cancer presents with large bowel obstruction. End of life care include a hospice was described as well as palliative diverting colostomy the patient and family. All questions were answered with diagrams of the colon reviewed. Risks were reviewed with the patient including daughter and at bedside. Informed consent was obtained. DESCRIPTION: Patient was brought to the operating room. Preoperative medications including Ancef and Flagyl were initiated. The patient was placed in supine position whereby general induction was performed. Abdomen had been prepped and draped in the standard sterile fashion with placement Ta catheter. Ioban draping was also placed to minimize any contamination to the skin. Next, using #10 blade, the abdomen was entered along the midline whereby an incision was made just above the umbilicus down to the pubis. The abdomen was inspected whereby the small bowel was unremarkable. Next, universal retracting system was placed for further exposure of the abdomen. The transverse colon including cecum were moderately dilated over 6-7 cm. Multiple metastatic adhesive bands were found causing near complete obstruction at the cecum to ascending colon and at hepatic flexure to ascending colon. Adhesive bands were divided using LigaSure. Separately, near complete obstruction at the hepatic flexure with dense tumor involvement of concrete consistency was found and unable to resect. Decompressive transverse colotomy was performed to allow further investigation of the colon. Pursestring suture was placed at the mid transverse colon followed by decompression with suction. Moderate liquid stool was removed. Nevertheless, the cecum and ascending colon was still moderately dilated despite decompression confirming complete obstruction at hepatic flexure. Further inspection of the cecum and ascending colon demonstrated index malignancy of the ascending colon of 3 cm. The decompressive transverse colotomy was closed using Aldo & Aldo tri- stapler, purple load. Next, decompressive cecotomy was performed at the anterior medial portion of the colon. This cecotomy was closed using Aldo & Aldo purple tri-stapler. As the ileocecal valve was functional with complete decompression of the small bowel, a cecostomy was brought out through the right lower quadrant after removed leaving circular disc 2 cm from the right lower quadrant to the subcutaneous tissue involving skin. The cecostomy was brought out and anchored to the abdominal wall using 3-0 Polysorb at the peritoneum including within the subcutaneous tissue. Next, the pelvis was further investigated with complete blockage found at her prior sigmoid colectomy anastomosis. 1 cm proximal the mesentery window was created with division of the sigmoid colon using Aldo & Aldo contour curved stapler. Hemostasis excellent. The sigmoid and descending colon was brought up for a end colostomy at the left lower quadrant also providing a mucous fistula. A circular skin and subcutaneous tissue ostomy was created at the left lower quadrant. The sigmoid colon was brought up to the skin. Hemostasis was excellent. Next, attention was brought to the delivering and creating of the descending colostomy. A point along the abdominal wall and rectus muscle was selected for the colostomy. Dennise was used to elevate the skin and Bovie cautery was taken across in tangential manner to create the skin defect of approximately quarter-size. The fat of the skin was mobilized using a small rich. The rectus muscle was identified and scored with a cruciate scoring of electro- Bovie cautery. Next, using a muscle-splitting technique with a hemostat, the peritoneum was entered. The peritoneum was widened such that 2 fingerbreadths could easily pass for delivering and evaginating the descending portion of the colon through the skin. The midline incision was closed using looped 0 PDS. Next, the subcutaneous tissue was copiously irrigated with normal saline and hydrogen peroxide. For the rest of the incision, stainless steel skin ethan were applied. The midline incision was covered using universal PREVENA wound VAC and attention was brought to maturation of the descending colostomy and cecostomy. The staple edge was divided and removed. Next quadrant sutures at 12 o'clock, 3 o'clock, 6 o'clock, and 9 o'clock position was made using serosa, mucosal and dermal bites using 2-0 Vicryl. Interrupted 3-0 Vicryl was placed in between all quadrants sutures to completely mature the ostomy. Hemostasis was checked. A Coloplasts were placed. At the end of the procedure, needle, sponge, and instrument count had been verified correct by senior quality control technician. The patient's family was updated on level of care.
[2022-10-07] MEDS: SODIUM CHLORIDE 0.9% 1,000 ML IV SCH ×2 (02:48→14:58)
[2022-10-07] MEDS: HYDROmorphone 1 MG/ML 1 ML SYRINGE IVP PRN ×6 (02:48→21:36)
[2022-10-07] MEDS: FERROUS SULFATE 325 MG TAB PO SCH ×2 (06:00→18:30)
[2022-10-07] MEDS: metroNIDAZOLE-NS PMX 500 MG in SALINE 1 100ML.BAG IVPB SCH ×3 (06:05→18:38)
[2022-10-07] MEDS: PANTOPRAZOLE 40 MG TABLET PO SCH (06:05)
[2022-10-07] MEDS: oxyCODONE-APAP 10-325MG 1 EACH TAB PO PRN ×2 (08:37→14:51)
[2022-10-07] MEDS: ONDANSETRON 4 MG/2 ML VIAL IVP PRN ×2 (09:13→17:11)
[2022-10-07 09:29] LABS: Anisocytosis Slight; Basophils % (A) 0 %; Eosinophils % (A) 0 %; HCT 28.9 % (34.0-46.0); HGB 8.7 gm/dL (11.4-16.0); Hypochromasia Marked; Lymphocytes # (A) 0.8 k/uL (1.0-4.8); Lymphocytes % (A) 10 %; MCH 23.4 pg (25.0-35.0); MCHC 30.1 g/dL (31.0-37.0); MCV 77.6 fL (80.0-100.0); Mean Platelet Volume 9.5; Microcytosis Slight; Monocytes # (A) 0.3 k/uL (0-1.0); Monocytes % (A) 4 %; Neutrophils # (A) 6.7 k/uL (1.3-7.7); Neutrophils % (A) 84 %; Platelet Count 297 k/uL (150-450); RBC 3.73 m/uL (3.80-5.40); RDW 18.7 % (11.5-15.5)
[2022-10-07] MEDS: LORazepam 1 MG TAB PO PRN (09:52)
[2022-10-07 10:55] LABS: African American GFR (CKD) 105.9 (60.0-200.0); Anion Gap 12.9 mmol/L (10.00-18.00); BUN/Creat Ratio 19.2 Ratio (12.00-20.00); Blood Urea Nitrogen 9.6 mg/dL (9.0-27.0); Calcium 7.8 mg/dL (8.7-10.3); Carbon Dioxide 23.1 mmol/L (20.0-27.5); Non-African American GFR(CKD) 91.4 (60.0-200.0); Potassium 3.4 mmol/L (3.5-5.5)
[2022-10-07] MEDS ORDERED: POTASSIUM CHLORIDE ER 20 MEQ TAB.ER PO STA (11:43)
--- NOTE | 2022-10-07 11:49 | P.PN ---
Subjective Progress Note Date: 10/07/22 CHIEF COMPLAINT: Abdominal pain HISTORY OF PRESENT ILLNESS: Patient is postop day #1 status post Exploratory laparotomy decompressive cecotomy and transverse colon colotomy due to large bowel obstruction, lysis of adhesions of metastatic tumor deposits pelvis, right upper quadrant, Cecostomy, Royer's procedure descending colostomy for large bowel obstruction, sigmoid colon, mucous fistula, Placement of universal PREVENA wound VAC system and Drainage of intra-abdominal abscess. Patient complains of abdominal pain. IV pain medication is not helping. Pain management service is being notified. Patient does have stool noted in her ostomy bag. Afebrile. WBC is 8.0 Hgb 8.7 platelets 297 sodium is 133 potassium is 3.4 creatinine 0.5 PHYSICAL EXAM: VITAL SIGNS: Reviewed GENERAL: Well-developed in no acute distress. HEENT: No sclera icterus. Extraocular movements grossly intact. Moist buccal mucosa. Head is atraumatic, normocephalic. Hears conversational speech. No nasal drainage. NECK: Supple without lymphadenopathy. CHEST: Non-labored respirations and equal bilateral excursions. CARDIOVASCULAR: Palpable 2+ radial pulses. ABDOMEN: Diffuse tenderness. Prevana dressing intact. Ostomy bag with stool present on the left. Mucous fistula on the right of the abdomen MUSCULOSKELETAL: No clubbing or cyanosis. NEUROLOGIC: No focal or lateralizing signs. Cranial nerves II through XII grossly intact. PSYCH: Appropriate affect. Alert and oriented to person, place and time. SKIN: Well perfused. Good skin turgor. ASSESSMENT: 1. Large bowel obstruction due to metastatic colon cancer 2. Chronic constipation 3. Chronic pain syndrome 4. Gastroesophageal reflux disease 5. Fibromyalgia 6. Depressive disorder 7. Anxiety disorder 8. Traumatic brain injury 9. Bipolar disorder 10. Obstructive sleep apnea 11. Hyperlipidemia 12. Glaucoma 13. Irritable bowel syndrome 14. Right ovarian cyst 15. Metastatic pelvic peritoneal tumor deposits 16. Abdominal ascites 17. Metastatic peritoneal adhesions 18. Hypokalemia PLAN: -Patient continue clear liquid diet -Replace potassium -Patient to be reevaluated by pain service for pain management -Continue supportive care -Patient being evaluated by hospice Physician General Farmer note has been reviewed by physician. Signing provider agrees with the documented findings, assessment, and plan of care. Objective - Vital Signs Vital signs: Vital Signs Temp 98.6 F 10/07/22 07:25 Pulse 110 H 10/07/22 07:25 Resp 18 10/07/22 07:25 BP 145/92 10/07/22 07:25 Pulse Ox 99 10/07/22 07:25 FiO2 Intake & Output 10/06/22 10/07/22 10/07/22 18:59 06:59 18:59 Intake Total 1999 Balance 1999 Intake: IV 1999 Other: Voiding Method External Catheter Indwelling Catheter # Voids 1 - Labs CBC & Chem 7: 10/07/22 06:42 10/07/22 06:42 Labs: Abnormal Lab Results - Last 24 Hours (Table) 10/07/22 Range/Units 06:42 RBC 3.73 L (3.80-5.40) m/uL Hgb 8.7 L (11.4-16.0) gm/dL Hct 28.9 L (34.0-46.0) % MCV 77.6 L (80.0-100.0) fL MCH 23.4 L (25.0-35.0) pg MCHC 30.1 L (31.0-37.0) g/dL RDW 18.7 H (11.5-15.5) %
[2022-10-07] MEDS: ASPIRIN 81 MG PO SCH (13:29)
[2022-10-07] MEDS: dexAMETHasone 4 MG TAB PO SCH ×2 (13:29→21:34)
[2022-10-07] MEDS: busPIRone HCl 10 MG TAB PO SCH ×2 (13:29→21:35)
[2022-10-07] MEDS: THIAMINE 100 MG TAB PO SCH (13:30)
[2022-10-07] MEDS: SENNOSIDES-DOCUSATE SODIUM 1 EACH TAB PO SCH ×2 (13:30→21:35)
[2022-10-07] MEDS: FLUTICASONE 50MCG/SPRAY NASAL 16GM EA NOSTRIL SCH ×2 (13:30→21:35)
[2022-10-07 14:25] LABS: Poikilocytosis (M) Present
[2022-10-07] MEDS ORDERED: POTASSIUM BICARBONATE/CIT AC 20 MEQ TABLET.EFF PO ONE (14:30)
[2022-10-07] MEDS: HEPARIN SODIUM,PORCINE/PF 5,000 UNIT/0.5 ML SYRINGE SQ SCH ×2 (14:57→21:34)
[2022-10-07 14:58] VITALS: BMI 24.5
[2022-10-07] MEDS: FOLIC ACID 1 MG TAB PO SCH (14:58)
[2022-10-07] MEDS: MULTIVITAMINS, THERA 1 EACH TAB PO SCH (16:30)
[2022-10-07] MEDS: GABAPENTIN 300 MG CAP PO SCH ×2 (17:10→21:34)
[2022-10-07] MEDS: KETOROLAC 15 MG/ML 1 ML VIAL IVP SCH ×2 (18:37→18:41)
--- NOTE | 2022-10-07 19:52 | P.PN ---
Subjective Progress Note Date: 10/07/22 She is an 82-year-old female who was just on hospice care for stage IV ovarian cancer and abdominal pain presents to the ER for abdominal pain. Apparently patient had lost her hospice care due to family members taking her opiate medications. Patient was most recently admitted last month. Patient has hi story of metastatic colon cancer. The ROS documented in this emergency department record has been reviewed and confirmed by me. Those systems with pertinent positive or negative responses have been documented in the HPI. All other systems are other negative and/or noncontributory. Computed tomography scan has shown postsurgical changes to the rectosigmoid sigmoid junction with upstream extensive distention of the colon. Findings suggest at least partial large bowel obstruction. Bilateral adnexal cystic structures of which on the left has increased in size and on the right has slightly decreased in size. Scattered indeterminate lesions throughout the liver parenchyma which are new and suspicious for metastatic disease until proven otherwise. Port site soft tissue nodularity bilaterally increasing in size. Findings suggest malignancy implants. ---WBC is 7.5 Hgb is 9.0 plt 312 sodium 136 potassium 3.8 creatinine 0.41 magnesium 2.6 Surgery on board and planning to take patient for open laparotomy with diverting colostomy - Pain management has been consulted and recommendations are pending 24 hour interval change 10/07/2022 Patient is seen and evaluated with and daughter at bedside; family report that they have opted for hospice and have been able to talk to hospice nurse and have signed patient up with hospice but hospice nurse wound be able to treat patient Monday; this was discussed with hospice nurse who indicates that patient's only option would be to move to a hospice house due to discrepancy about family members using patient's narcotic medications -- After detailed discussion with daughter and at bedside, family are requesting to proceed with comfort and hospice care until patient Seen again by hospice nurse on Monday Objective - Vital Signs Vital signs: Vital Signs Temp 98.6 F 10/07/22 07:25 Pulse 110 H 10/07/22 08:00 Resp 18 10/07/22 08:00 BP 145/92 10/07/22 07:25 Pulse Ox 99 10/07/22 07:25 FiO2 Intake & Output 10/06/22 10/07/22 10/07/22 18:59 06:59 18:59 Intake Total 1999 Balance 1999 Intake: IV 1999 Other: Voiding Method External Catheter Indwelling Catheter Indwelling Catheter # Voids 1 - Exam General Impression: Alert and oriented x3, not in acute distress HEENT: Normocephalic atraumatic, extra-ocular movements intact, pupils equal and reactive to light bilaterally, mucous membranes moist. Cardiovascular: Heart regular rate and rhythm Chest: Able to complete full sentences, no retractions, no tachypnea Abdomen: abdomen soft, diffuse abdominal tenderness, non-distended, no organomegaly Musculoskeletal: Pulses present and equal in all extremities, no peripheral edema Motor: no focal deficits noted Neurological: CN II-XII grossly intact, no focal motor or sensory deficits noted Skin: Intact with no visualized rashes Psych: Normal affect and mood - Labs CBC & Chem 7: 10/07/22 06:42 10/07/22 06:42 Labs: Abnormal Lab Results - Last 24 Hours (Table) 10/07/22 10/07/22 Range/Units 06:42 06:42 RBC 3.73 L (3.80-5.40) m/uL Hgb 8.7 L (11.4-16.0) gm/dL Hct 28.9 L (34.0-46.0) % MCV 77.6 L (80.0-100.0) fL MCH 23.4 L (25.0-35.0) pg MCHC 30.1 L (31.0-37.0) g/dL RDW 18.7 H (11.5-15.5) % Sodium 133 L (135-145) mmol/L Potassium 3.4 L (3.5-5.5) mmol/L Creatinine 0.5 L (0.6-1.5) mg/dL Glucose 143 H (70-110) mg/dL Calcium 7.8 L (8.7-10.3) mg/dL Assessment and Plan Assessment: 1. Uncontrolled pain 2. Stage IV ovarian cancer 3. Hyperlipidemia 4. TIA/CVA 5. Fibromyalgia 6. Gastroesophageal looks disease 7. Seizure disorder 8. Sleep disorder, uses BiPAP/CPAP 9. Osteoarthritis Patient has been admitted to hospice but lost her privileges because of family member using her narcotics Patient will be admitted to the hospital for pain control We will consult hospice for further input
[2022-10-07] MEDS: ACETAMINOPHEN IV (For NPO) 1,000 MG in EMPTY BAG 1 BAG IVPB SCH ×2 (21:33→22:12)
[2022-10-07] MEDS: DULoxetine HCL 60 MG CAPSULE.DR PO SCH (21:34)
[2022-10-07] MEDS: LATANOPROST 0.005% OPHTH DROPS 2.5 ML BTL BOTH EYES SCH (21:34)
[2022-10-07] MEDS: MIRTAZAPINE 45 MG TABLET PO SCH (21:35)
[2022-10-07] MEDS: MAGNESIUM OXIDE 400 MG TAB PO SCH (21:35)
[2022-10-07] MEDS: MELATONIN 5 MG TABLET PO SCH (21:35)
[2022-10-08] MEDS: metroNIDAZOLE-NS PMX 500 MG in SALINE 1 100ML.BAG IVPB SCH (00:41)
[2022-10-08] MEDS: KETOROLAC 15 MG/ML 1 ML VIAL IVP SCH ×4 (00:41→17:38)
[2022-10-08] MEDS: SODIUM CHLORIDE 0.9% 1,000 ML IV SCH ×2 (00:50→15:22)
[2022-10-08] MEDS: ACETAMINOPHEN IV (For NPO) 1,000 MG in EMPTY BAG 1 BAG IVPB SCH ×2 (05:28→10:55)
[2022-10-08] MEDS: PANTOPRAZOLE 40 MG TABLET PO SCH (05:29)
[2022-10-08] MEDS: FERROUS SULFATE 325 MG TAB PO SCH ×2 (05:29→17:38)
[2022-10-08] MEDS: HYDROmorphone 1 MG/ML 1 ML SYRINGE IVP PRN ×5 (06:16→19:40)
[2022-10-08] MEDS: dexAMETHasone 4 MG TAB PO SCH ×2 (09:00→20:24)
[2022-10-08] MEDS: SENNOSIDES-DOCUSATE SODIUM 1 EACH TAB PO SCH ×2 (09:00→20:25)
[2022-10-08] MEDS: THIAMINE 100 MG TAB PO SCH (09:00)
[2022-10-08] MEDS: GABAPENTIN 300 MG CAP PO SCH ×3 (09:00→20:24)
[2022-10-08] MEDS: HEPARIN SODIUM,PORCINE/PF 5,000 UNIT/0.5 ML SYRINGE SQ SCH ×2 (09:00→20:24)
[2022-10-08] MEDS: ASPIRIN 81 MG PO SCH (09:00)
[2022-10-08] MEDS: busPIRone HCl 10 MG TAB PO SCH ×2 (09:02→20:25)
[2022-10-08] MEDS: FLUTICASONE 50MCG/SPRAY NASAL 16GM EA NOSTRIL SCH ×2 (09:02→20:23)
--- NOTE | 2022-10-08 09:25 | P.PN ---
Subjective Progress Note Date: 10/08/22 Principal diagnosis: Metastatic cancer Patient doing well today. Says her pain is slightly more than last night. She is tolerating diet currently. Ostomy left lower quadrant functioning. Objective - Vital Signs Vital signs: Vital Signs Temp 98.9 F 10/08/22 07:15 Pulse 103 H 10/08/22 07:15 Resp 18 10/08/22 07:15 BP 126/82 10/08/22 07:15 Pulse Ox 96 10/08/22 07:59 FiO2 Intake & Output 10/07/22 10/08/22 10/08/22 18:59 06:59 18:59 Intake Total 210 Output Total 1100 1250 Balance -1100 -1250 210 Weight 68.946 kg Intake: Oral 210 Output: Urine 1100 1000 Stool 250 Other: Voiding Method Indwelling Catheter Indwelling Catheter - Exam Abdomen: Soft, nondistended, dressing in place, cecostomy with no output, colostomy left lower quadrant with stool - Labs CBC & Chem 7: 10/07/22 06:42 10/07/22 06:42 Labs: Abnormal Lab Results - Last 24 Hours (Table) 10/07/22 10/07/22 Range/Units 06:42 06:42 RBC 3.73 L (3.80-5.40) m/uL Hgb 8.7 L (11.4-16.0) gm/dL Hct 28.9 L (34.0-46.0) % MCV 77.6 L (80.0-100.0) fL MCH 23.4 L (25.0-35.0) pg MCHC 30.1 L (31.0-37.0) g/dL RDW 18.7 H (11.5-15.5) % Lymphocytes # 0.8 L (1.0-4.8) k/uL Sodium 133 L (135-145) mmol/L Potassium 3.4 L (3.5-5.5) mmol/L Creatinine 0.5 L (0.6-1.5) mg/dL Glucose 143 H (70-110) mg/dL Calcium 7.8 L (8.7-10.3) mg/dL Assessment and Plan (1) Cancer associated pain Narrative/Plan: A-year-old female with bowel obstruction related to advanced cancer. The patient now being made hospice. Continue diet and analgesics. Current Visit: Yes Status: Acute Code(s): G89.3 - NEOPLASM RELATED PAIN (ACUTE) (CHRONIC) SNOMED Code(s): 47366712837399
[2022-10-08] MEDS: MULTIVITAMINS, THERA 1 EACH TAB PO SCH (12:02)
[2022-10-08] MEDS: FOLIC ACID 1 MG TAB PO SCH (12:02)
[2022-10-08] MEDS: oxyCODONE-APAP 10-325MG 1 EACH TAB PO PRN (14:15)
--- NOTE | 2022-10-08 15:43 | P.PN ---
Subjective Progress Note Date: 10/08/22 Principal diagnosis: Bowel obstruction related to advanced cancer Electrolyte imbalance; hyponatremia/hypochloremia Intractable abdominal pain She is an 82-year-old female who was just on hospice care for stage IV ovarian cancer and abdominal pain presents to the ER for abdominal pain. Apparently patient had lost her hospice care due to family members taking her opiate medications. Patient was most recently admitted last month. Patient has history of metastatic colon cancer. The ROS documented in this emergency department record has been reviewed and confirmed by me. Those systems with pertinent positive or negative responses have been documented in the HPI. All other systems are other negative and/or noncontributory. Computed tomography scan has shown postsurgical changes to the rectosigmoid sigmoid junction with upstream extensive distention of the colon. Findings suggest at least partial large bowel obstruction. Bilateral adnexal cystic structures of which on the left has increased in size and on the right has slightly decreased in size. Scattered indeterminate lesions throughout the liver parenchyma which are new and suspicious for metastatic disease until proven otherwise. Port site soft tissue nodularity bilaterally increasing in size. Findings suggest malignancy implants. ---WBC is 7.5 Hgb is 9.0 plt 312 sodium 136 potassium 3.8 creatinine 0.41 magnesium 2.6 Surgery on board and planning to take patient for open laparotomy with diverting colostomy - Pain management has been consulted and recommendations are pending 24 hour interval change 10/07/2022 Patient is seen and evaluated with and daughter at bedside; family report that they have opted for hospice and have been able to talk to hospice nu rse and have signed patient up with hospice but hospice nurse wound be able to treat patient Monday; this was discussed with hospice nurse who indicates that patient's only option would be to move to a hospice house due to discrepancy about family members using patient's narcotic medications -- After detailed discussion with daughter and at bedside, family are requesting to proceed with comfort and hospice care until patient Seen again by hospice nurse on Monday 24 hour interval change 10/08/2021 Patient is seen and evaluated resting comfortably in bed with family members at bedside; patient herself continues to complain of abdominal pain/cramps Patient continues to report severe abdominal pain; patient is currently on 20 mg of IV Dilaudid every 6 hours when necessary; we will add Bentyl and magnesium sulfate for cramps - Patient has been evaluated by hospice with plans to start service on Monday -- No current labs available; possible plan for starting hospice care on Monday Objective - Vital Signs Vital signs: Vital Signs Temp 98.9 F 10/08/22 07:15 Pulse 103 H 10/08/22 07:15 Resp 18 10/08/22 07:15 BP 126/82 10/08/22 07:15 Pulse Ox 96 10/08/22 07:59 FiO2 Intake & Output 10/07/22 10/08/22 10/08/22 18:59 06:59 18:59 Intake Total 210 Output Total 1100 1250 Balance -1100 -1250 210 Weight 68.946 kg Intake: Oral 210 Output: Urine 1100 1000 Stool 250 Other: Voiding Method Indwelling Catheter Indwelling Catheter Indwelling Catheter - Labs CBC & Chem 7: 10/07/22 06:42 10/07/22 06:42 Labs: Abnormal Lab Results - Last 24 Hours (Table) 10/07/22 Range/Units 06:42 Lymphocytes # 0.8 L (1.0-4.8) k/uL
[2022-10-08] MEDS: LATANOPROST 0.005% OPHTH DROPS 2.5 ML BTL BOTH EYES SCH (20:23)
[2022-10-08] MEDS: MELATONIN 5 MG TABLET PO SCH (20:24)
[2022-10-08] MEDS: DULoxetine HCL 60 MG CAPSULE.DR PO SCH (20:24)
[2022-10-08] MEDS: MAGNESIUM OXIDE 400 MG TAB PO SCH (20:24)
[2022-10-08] MEDS: MIRTAZAPINE 45 MG TABLET PO SCH (20:25)
[2022-10-08] MEDS: LORazepam 1 MG TAB PO PRN (20:44)
[2022-10-09] MEDS: KETOROLAC 15 MG/ML 1 ML VIAL IVP SCH ×4 (00:27→17:52)
[2022-10-09] MEDS: HYDROmorphone 1 MG/ML 1 ML SYRINGE IVP PRN ×5 (00:58→20:33)
[2022-10-09] MEDS: oxyCODONE-APAP 10-325MG 1 EACH TAB PO PRN ×2 (02:20→08:43)
[2022-10-09] MEDS: SODIUM CHLORIDE 0.9% 1,000 ML IV SCH ×2 (03:20→17:52)
[2022-10-09] MEDS: FERROUS SULFATE 325 MG TAB PO SCH ×2 (05:57→17:53)
[2022-10-09] MEDS: PANTOPRAZOLE 40 MG TABLET PO SCH (05:57)
[2022-10-09] MEDS: HEPARIN SODIUM,PORCINE/PF 5,000 UNIT/0.5 ML SYRINGE SQ SCH ×2 (08:43→20:34)
[2022-10-09] MEDS: THIAMINE 100 MG TAB PO SCH (08:43)
[2022-10-09] MEDS: SENNOSIDES-DOCUSATE SODIUM 1 EACH TAB PO SCH ×2 (08:43→20:34)
[2022-10-09] MEDS: GABAPENTIN 300 MG CAP PO SCH ×3 (08:43→20:34)
[2022-10-09] MEDS: dexAMETHasone 4 MG TAB PO SCH ×2 (08:43→20:34)
[2022-10-09] MEDS: ASPIRIN 81 MG PO SCH (08:43)
[2022-10-09] MEDS: FLUTICASONE 50MCG/SPRAY NASAL 16GM EA NOSTRIL SCH ×2 (08:44→20:34)
[2022-10-09] MEDS: busPIRone HCl 10 MG TAB PO SCH ×2 (08:44→20:34)
[2022-10-09] MEDS: FOLIC ACID 1 MG TAB PO SCH (12:09)
[2022-10-09] MEDS: MULTIVITAMINS, THERA 1 EACH TAB PO SCH (12:09)
--- NOTE | 2022-10-09 14:59 | P.PN ---
Subjective Progress Note Date: 10/09/22 Principal diagnosis: Metastatic cancer Patient complaining of some abdominal bloating and cramps. Despite that she has been eating a large volume of solid foods today. No vomiting or nausea currently. Ostomies are both functioning. Objective - Vital Signs Vital signs: Vital Signs Temp 97.9 F 10/09/22 07:05 Pulse 108 H 10/09/22 07:05 Resp 18 10/09/22 07:05 BP 158/76 10/09/22 07:05 Pulse Ox 92 L 10/09/22 08:25 FiO2 Intake & Output 10/08/22 10/09/22 10/09/22 18:59 06:59 18:59 Intake Total 807 120 Output Total 725 Balance 807 -725 120 Intake: Oral 807 120 Output: Urine 725 Other: Voiding Method Indwelling Catheter Indwelling Catheter Indwelling Catheter - Exam Abdomen: Soft, mild distention, dressing in place, ostomy is functioning - Labs CBC & Chem 7: 10/07/22 06:42 10/07/22 06:42 Assessment and Plan (1) Cancer associated pain Narrative/Plan: Patient seems to be having some obstructive symptoms. I asked her to decrease the volume of food she is eating. If symptoms persist recommend liquid diet. Continue with plans for hospice transfer. Current Visit: Yes Status: Acute Code(s): G89.3 - NEOPLASM RELATED PAIN (ACUTE) (CHRONIC) SNOMED Code(s): 25337457245516
--- NOTE | 2022-10-09 17:00 | P.PN ---
Subjective Progress Note Date: 10/09/22 Principal diagnosis: Bowel obstruction related to advanced cancer Electrolyte imbalance; hyponatremia/hypochloremia Intractable abdominal pain She is an 82-year-old female who was just on hospice care for stage IV ovarian cancer and abdominal pain presents to the ER for abdominal pain. Apparently patient had lost her hospice care due to family members taking her opiate medications. Patient was most recently admitted last month. Patient has history of metastatic colon cancer. The ROS documented in this emergency department record has been reviewed and confirmed by me. Those systems with pertinent positive or negative responses have been documented in the HPI. All other systems are other negative and/or noncontributory. Computed tomography scan has shown postsurgical changes to the rectosigmoid sigmoid junction with upstream extensive distention of the colon. Findings suggest at least partial large bowel obstruction. Bilateral adnexal cystic structures of which on the left has increased in size and on the right has slightly decreased in size. Scattered indeterminate lesions throughout the liver parenchyma which are new and suspicious for metastatic disease until proven otherwise. Port site soft tissue nodularity bilaterally increasing in size. Findings suggest malignancy implants. ---WBC is 7.5 Hgb is 9.0 plt 312 sodium 136 potassium 3.8 creatinine 0.41 magnesium 2.6 Surgery on board and planning to take patient for open laparotomy with diverting colostomy - Pain management has been consulted and recommendations are pending 24 hour interval change 10/07/2022 Patient is seen and evaluated with and daughter at bedside; family report that they have opted for hospice and have been able to talk to hospice nu rse and have signed patient up with hospice but hospice nurse wound be able to treat patient Monday; this was discussed with hospice nurse who indicates that patient's only option would be to move to a hospice house due to discrepancy about family members using patient's narcotic medications -- After detailed discussion with daughter and at bedside, family are requesting to proceed with comfort and hospice care until patient Seen again by hospice nurse on Monday 24 hour interval change 10/09/2021 Patient is seen and evaluated sitting up in bedside chair; seems comfortable; no distress at all Patient patient reports improvement in total. But continues to have cramping; patient is currently on 20 mg of IV Dilaudid every 6 hours when necessary; we will add Bentyl and magnesium sulfate for cramps - Patient has been evaluated by hospice with plans to start service on Monday -- No current labs available; possible plan for starting hospice care on Monday Objective - Vital Signs Vital signs: Vital Signs Temp 97.9 F 10/09/22 07:05 Pulse 108 H 10/09/22 07:05 Resp 18 10/09/22 07:05 BP 158/76 10/09/22 07:05 Pulse Ox 92 L 10/09/22 08:25 FiO2 Intake & Output 10/08/22 10/09/22 10/09/22 18:59 06:59 18:59 Intake Total 807 120 Output Total 725 Balance 807 -725 120 Intake: Oral 807 120 Output: Urine 725 Other: Voiding Method Indwelling Catheter Indwelling Catheter Indwelling Catheter - Exam General Impression: Alert and oriented x3, not in acute distress HEENT: Normocephalic atraumatic, extra-ocular movements intact, pupils equal and reactive to light bilaterally, mucous membranes moist. Cardiovascular: Heart regular rate and rhythm Chest: Able to complete full sentences, no retractions, no tachypnea Abdomen: abdomen soft, diffuse abdominal tenderness, non-distended, no organomegaly Musculoskeletal: Pulses present and equal in all extremities, no peripheral edema Motor: no focal deficits noted Neurological: CN II-XII grossly intact, no focal motor or sensory deficits noted Skin: Intact with no visualized rashes Psych: Normal affect and mood - Labs CBC & Chem 7: 10/07/22 06:42 10/07/22 06:42 Assessment and Plan Assessment: 1. Uncontrolled pain 2. Stage IV ovarian cancer 3. Hyperlipidemia 4. TIA/CVA 5. Fibromyalgia 6. Gastroesophageal looks disease 7. Seizure disorder 8. Sleep disorder, uses BiPAP/CPAP 9. Osteoarthritis Patient has been admitted to hospice but lost her privileges because of family member using her narcotics Patient will be admitted to the hospital for pain control We will consult hospice for further input
[2022-10-09] MEDS: MELATONIN 5 MG TABLET PO SCH (20:33)
[2022-10-09] MEDS: MAGNESIUM OXIDE 400 MG TAB PO SCH (20:33)
[2022-10-09] MEDS: LATANOPROST 0.005% OPHTH DROPS 2.5 ML BTL BOTH EYES SCH (20:34)
[2022-10-09] MEDS: MIRTAZAPINE 45 MG TABLET PO SCH (20:34)
[2022-10-09] MEDS: DULoxetine HCL 60 MG CAPSULE.DR PO SCH (20:34)
[2022-10-09] MEDS: LORazepam 1 MG TAB PO PRN (22:40)
[2022-10-10] MEDS: KETOROLAC 15 MG/ML 1 ML VIAL IVP SCH ×3 (01:00→12:22)
[2022-10-10] MEDS: HYDROmorphone 1 MG/ML 1 ML SYRINGE IVP PRN ×4 (01:23→12:20)
[2022-10-10] MEDS: oxyCODONE-APAP 10-325MG 1 EACH TAB PO PRN ×2 (04:31→09:46)
[2022-10-10] MEDS: PANTOPRAZOLE 40 MG TABLET PO SCH (06:11)
[2022-10-10] MEDS: FERROUS SULFATE 325 MG TAB PO SCH (06:11)
[2022-10-10] MEDS: dexAMETHasone 4 MG TAB PO SCH (07:59)
[2022-10-10] MEDS: ASPIRIN 81 MG PO SCH (07:59)
[2022-10-10] MEDS: THIAMINE 100 MG TAB PO SCH (07:59)
[2022-10-10] MEDS: GABAPENTIN 300 MG CAP PO SCH (07:59)
[2022-10-10] MEDS: HEPARIN SODIUM,PORCINE/PF 5,000 UNIT/0.5 ML SYRINGE SQ SCH (07:59)
[2022-10-10] MEDS: SENNOSIDES-DOCUSATE SODIUM 1 EACH TAB PO SCH (08:00)
[2022-10-10] MEDS: busPIRone HCl 10 MG TAB PO SCH (08:00)
[2022-10-10] MEDS: FLUTICASONE 50MCG/SPRAY NASAL 16GM EA NOSTRIL SCH (08:04)
[2022-10-10 08:36] VITALS: BP 147/79; PULSE 98; RESP 16; TEMP 98
[2022-10-10] MEDS: MULTIVITAMINS, THERA 1 EACH TAB PO SCH (12:22)
[2022-10-10] MEDS: FOLIC ACID 1 MG TAB PO SCH (12:22)
--- NOTE | 2022-10-10 12:26 | P.DS ---
Providers Date of admission: 10/06/22 10:15 Attending physician: Leslie Ruth MD Consults: 10/04/22 06:05 Consult Physician Urgent Consulting Provider: Ambreen Cm Consult Reason/Comments: ileus v. bowel obstruction Do you want consulting provider notified?: Yes 10/05/22 12:13 Consult Physician Urgent Consulting Provider: Dayana Menjivar Consult Reason/Comments: pain management, cancer Do you want consulting provider notified?: Yes Primary care physician: Hill Mata Hospital Course: 1. Sigmoid colon cancer; with bowel obstruction, patient is status post low anterior sigmoid resection and umbilical hernia repair; on 10/06 2. Hypertension; metoprolol 50 mg twice a day and Maxzide 30 7. 525 milligrams twice a day; amlodipine 10 mg by mouth daily at bedtime 3. Hyperlipidemia; patient takes Lipitor 40 mg by mouth daily at bedtime 4. History of memory impairment 5. TIA/CVA; patient is on aspirin and Lipitor 6. History of Gastroesophageal reflux disease; omeprazole 20 mg twice a day 7. history of sleep apnea, not an active issue. 8. Chronic low back pain, I activation 9. Chronic anemia complicated by postoperative anemia which is expected, keep monitoring hemoglobin, Give iron pills 10 days Hospital course: She is an 82-year-old female who was just on hospice care for stage IV ovarian cancer and abdominal pain presents to the ER for abdominal pain. Apparently patient had lost her hospice care due to family members taking her opiate medications. Patient presents with severe abdominal pain with evidence of bowel obstruction, patient evaluated by surgery team and she underwent Exploratory laparotomy decompressive cecotomy and transverse colon colotomy due to large bowel obstruction, Extensive lysis of adhesions of metastatic tumor deposits pelvis, right upper quadrant, Cecostomy, Royer's procedure descending colostomy for large bowel obstruction, sigmoid colon, mucous fistula, Placement of universal PREVENA wound VAC system, 25 x 2 cm ,Drainage of intra-abdominal abscess 100 mL, pelvis Patient postoperatively she is awake and alert, she still have some persistent abdominal pain but is improving No other new complaints. Patient was cleared for discharge by surgery team for bed side nurse today. Vitals are stable Patient is going back to [facility] Patient is medically stable with very guarded prognosis Problems and management plan were discussed with the patient and he verbalized understanding and acceptance Patient was found stable and can be discharged home in guarded prognosis however he needs follow-up as an outpatient. Patient was instructed to follow up with PCP within one week and patient agrees Physical exam Gen: patient is a AAOx3, no distress CVS: S1-S2, RRR, no murmur Lungs: B/L CTA, no wheezing -Abdomen: soft, no distention, no tenderness, positive bowel sounds colostomy back are in place with brown stool permanent in a Place each back Extremity: no leg edema or induration Time spent more than 35 minutes Patient Condition at Discharge: Fair Plan - Discharge Summary Discharge Rx Participant: No New Discharge Prescriptions: New Gabapentin [Neurontin] 300 mg PO TID cap Continue Latanoprost/Pf [Latanoprost 0.005% Eye Drop] 1 drop BOTH EYES HS Pantoprazole [Protonix] 40 mg PO DAILY Aspirin EC [Ecotrin Low Dose] 81 mg PO DAILY Magnesium 500 mg PO HS Acetaminophen Tab [Tylenol] 500 mg PO Q6H PRN #30 tablet PRN Reason: Pain Fluticasone Nasal [place] [Flonase Nasal [place]] 1 spray EA NOSTRIL BID Melatonin [Melatonin Dissolving Tablet] 10 mg PO HS Sennosides/Docusate Sodium [Senna Plus 8.6-50 mg Softgel] 1 tab PO BID Prochlorperazine [Compazine] 10 mg PO Q6H PRN PRN Reason: Nausea Ibuprofen [Motrin] 600 mg PO Q8HR PRN PRN Reason: Pain Simethicone Chew [Mylicon Chew] 80 mg PO QID PRN PRN Reason: Bloating Folic Acid 1 mg PO DAILY@1200 #30 tab Multivitamins, Thera [Multivitamin (formulary)] 1 each PO DAILY@1200 #30 tab Mirtazapine 45 mg PO HS busPIRone HCl [Buspar] 10 mg PO BID DULoxetine HCL [Cymbalta] 60 mg PO HS Ondansetron Odt [Zofran ODT] 8 mg PO Q8HR PRN PRN Reason: Nausea dexAMETHasone [Decadron] 4 mg PO BID Dicyclomine [Bentyl] 10 mg PO QID PRN PRN Reason: abdominal pain bisacodyL [Dulcolax] 10 mg RECTAL Q3D PRN PRN Reason: Constipation polyethylene glycoL 3350 [Miralax] 17 gm PO DAILY PRN packet PRN Reason: Constipation LORazepam [Ativan] 0.5 mg PO Q2H PRN #9 tab PRN Reason: Anxiety Scopolamine 1 mg/72 Hr Patch [TransDerm Scop] 1 patch TRANSDERM Q72H PRN PRN Reason: Nausea Thiamine [Vitamin B-1] 100 mg PO DAILY #30 tab oxyCODONE-APAP 10-325MG [Percocet 10-325 mg] 1 tab PO Q6H PRN PRN Reason: Pain Discharge Medication List Latanoprost/Pf [Latanoprost 0.005% Eye Drop] 1 drop BOTH EYES HS 08/28/19 [History] Pantoprazole [Protonix] 40 mg PO DAILY 04/30/20 [History] Mirtazapine 45 mg PO HS 08/25/21 [History] Aspirin EC [Ecotrin Low Dose] 81 mg PO DAILY 11/02/21 [History] DULoxetine HCL [Cymbalta] 60 mg PO HS 11/02/21 [History] Magnesium 500 mg PO HS 11/02/21 [History] busPIRone HCl [Buspar] 10 mg PO BID 11/02/21 [History] Acetaminophen Tab [Tylenol] 500 mg PO Q6H PRN #30 tablet 04/05/22 [Rx] Fluticasone Nasal [place] [Flonase Nasal [place]] 1 spray EA NOSTRIL BID 04/15/22 [History] Melatonin [Melatonin Dissolving Tablet] 10 mg PO HS 04/19/22 [History] Ondansetron Odt [Zofran ODT] 8 mg PO Q8HR PRN 06/02/22 [History] Prochlorperazine [Compazine] 10 mg PO Q6H PRN 07/31/22 [History] Sennosides/Docusate Sodium [Senna Plus 8.6-50 mg Softgel] 1 tab PO BID 07/31/22 [History] Dicyclomine [Bentyl] 10 mg PO QID PRN 09/02/22 [History] Ibuprofen [Motrin] 600 mg PO Q8HR PRN 09/02/22 [History] bisacodyL [Dulcolax] 10 mg RECTAL Q3D PRN 09/02/22 [History] dexAMETHasone [Decadron] 4 mg PO BID 09/02/22 [History] LORazepam [Ativan] 0.5 mg PO Q2H PRN #9 tab 09/21/22 [Rx] polyethylene glycoL 3350 [Miralax] 17 gm PO DAILY PRN packet 09/21/22 [Rx] Scopolamine 1 mg/72 Hr Patch [TransDerm Scop] 1 patch TRANSDERM Q72H PRN 09/22/22 [History] Simethicone Chew [Mylicon Chew] 80 mg PO QID PRN 09/22/22 [History] Folic Acid 1 mg PO DAILY@1200 #30 tab 09/27/22 [Rx] Multivitamins, Thera [Multivitamin (formulary)] 1 each PO DAILY@1200 #30 tab 09/27/22 [Rx] Thiamine [Vitamin B-1] 100 mg PO DAILY #30 tab 09/27/22 [Rx] oxyCODONE-APAP 10-325MG [Percocet 10-325 mg] 1 tab PO Q6H PRN 10/03/22 [History] Gabapentin [Neurontin] 300 mg PO TID cap 10/10/22 [Rx] Follow up Appointment(s)/Referral(s): Hill Mata MD [Primary Care Provider] - 1-2 days Hospice,[facility] [REFERRING] - As Soon As Possible Activity/Diet/Wound Care/Special Instructions: Please send a few ostomy supplies with patient when she is discharged to [facility] Discharge Disposition: HOME WITH HOSPICE
--- NOTE | 2022-10-10 15:18 | P.PN ---
Subjective Progress Note Date: 10/10/22 CHIEF COMPLAINT: Abdominal pain HISTORY OF PRESENT ILLNESS: Patient is postop day #4 status post Exploratory laparotomy decompressive cecotomy and transverse colon colotomy due to large bowel obstruction, lysis of adhesions of metastatic tumor deposits pelvis, right upper quadrant, Cecostomy, Royer's procedure descending colostomy for large bowel obstruction, sigmoid colon, mucous fistula, Placement of universal PREVENA wound VAC system and Drainage of intra-abdominal abscess. Patient complains of abdominal pain. Her ostomy and mucous fistula are functioning. Patient does report a decreased appetite and is currently only drinking clear liquids. She's scheduled for hospice house placement today PHYSICAL EXAM: VITAL SIGNS: Reviewed GENERAL: Well-developed in no acute distress. HEENT: No sclera icterus. Extraocular movements grossly intact. Moist buccal mucosa. Head is atraumatic, normocephalic. Hears conversational speech. No nasal drainage. NECK: Supple without lymphadenopathy. CHEST: Non-labored respirations and equal bilateral excursions. CARDIOVASCULAR: Palpable 2+ radial pulses. ABDOMEN: Diffuse tenderness. Distended. Prevana dressing intact. Ostomy bag with stool present on the left. Mucous fistula on the right of the abdomen with stool MUSCULOSKELETAL: No clubbing or cyanosis. NEUROLOGIC: No focal or lateralizing signs. Cranial nerves II through XII gr ossly intact. PSYCH: Appropriate affect. Alert and oriented to person, place and time. SKIN: Well perfused. Good skin turgor. ASSESSMENT: 1. Large bowel obstruction due to metastatic colon cancer 2. Chronic constipation 3. Chronic pain syndrome 4. Gastroesophageal reflux disease 5. Fibromyalgia 6. Depressive disorder 7. Anxiety disorder 8. Traumatic brain injury 9. Bipolar disorder 10. Obstructive sleep apnea 11. Hyperlipidemia 12. Glaucoma 13. Irritable bowel syndrome 14. Right ovarian cyst 15. Metastatic pelvic peritoneal tumor deposits 16. Abdominal ascites 17. Metastatic peritoneal adhesions 18. Hypokalemia PLAN: -Agree with the discharge to hospice house -Continue supportive care -Continue pain management -Continue diet as tolerated Physician Fast Food Assistant Restaurant Manager note has been reviewed by physician. Signing provider agrees with the documented findings, assessment, and plan of care. All Objective - Vital Signs Vital signs: Vital Signs Temp 98.0 F 10/10/22 08:00 Pulse 98 10/10/22 08:00 Resp 16 10/10/22 08:00 BP 147/79 10/10/22 08:00 Pulse Ox 96 10/10/22 08:00 FiO2 Intake & Output 10/09/22 10/10/22 10/10/22 18:59 06:59 18:59 Intake Total 240 Output Total 450 1200 Balance -210 -1200 Intake: Oral 240 Output: Urine 450 1000 Stool 200 Other: Voiding Method Indwelling Catheter Indwelling Catheter Indwelling Catheter - Labs CBC & Chem 7: 10/07/22 06:42 10/07/22 06:42
--- NOTE | 2022-10-13 13:07 | CDI ---
Documentation Clarification Form Date: 10/13/22 From: Renetta Manuel Admit Date: 10/06/2022 10:15:00 AM Patient Name: Zachary Christine Visit Number: [id number] Discharge Date: 10/10/2022 1:18:00 PM ATTENTION: The Clinical Documentation Specialists (CDI) and [facility] Coding Staff appreciate your assistance in clarifying documentation. Please respond to the clarification below the line at the bottom and electronically sign. The CDI & [facility] Coding staff will review the response and follow-up if needed. Please note: Queries are made part of the Legal Health Record. If you have any questions, please contact the author of this message via ITS. Dr. Narvaez E Lindsay, Chronic anemia complicated buy postoperative anemia is documented in the 10/06 PN and DS. Additional specificity regarding the [type, acuity] of anemia is requested. History/Risk Factors: Metastatic colon cancer to liver, pelvic area, ascites, hyponatremia, bipolar Clinical indicators: She underwent: Exploratory laparotomy decompressive cecotomy and transverse colon colotomy due to large bowel obstruction, Extensive lysis of adhesions of metastatic tumor deposits pelvis, right upper quadrant, Cecostomy, Royer's procedure descending colostomy for large bowel obstruction, sigmoid colon, mucous fistula. Hemoglobin: 9.8, 9.0, 8.1, 8.7 Hematocrit: 31.1, 29.7, 26.6, 28.9 Treatment: Monitor hemoglobin, iron pills x 10 days Please clarify the type and acuity of anemia: [ ] Acute blood loss anemia [ ] Acute on chronic blood loss anemia [ ] Unable to determine [ ] Other, please specify Unable to determine MTDD
== END 2022-10-10 13:18 | disposition hospice, inpatient (51) | DRG 330 ==
LOC: SUPCPDRO 11:44 → EC 11:44 → 6NMEDSUR 14:29 → OBSVTOIN 10-06 10:15
PROVIDERS: ADMIT Internal Medicine; ATTEND Internal Medicine
PROC: 0W9F0ZZ Drainage of Abdominal Wall, Open Approach (ICD-10-PCS; principal; 2022-10-07)
PROC: 0D1M0Z4 Bypass Descending Colon to Cutaneous, Open Approach (ICD-10-PCS; principal; 2022-10-07)
PROC: 0DTM0ZZ Resection of Descending Colon, Open Approach (ICD-10-PCS; principal; 2022-10-07)
PROC: 0D1 Gastrointestinal System, Bypass (ICD-10-PCS; principal; 2022-10-07)
PROC: 0DNW0ZZ Release Peritoneum, Open Approach (ICD-10-PCS; principal; 2022-10-07)
DX: C78.6 Secondary malignant neoplasm of retroperitoneum and peritoneum (principal); C18.2 Malignant neoplasm of ascending colon; E87.1 Hypo-osmolality and hyponatremia; C18.7 Malignant neoplasm of sigmoid colon; C56.9 Malignant neoplasm of unspecified ovary; C78.7 Secondary malignant neoplasm of liver and intrahepatic bile duct; D64.89 Other specified anemias; G40.909 Epilepsy, unspecified, not intractable, without status epilepticus; F31.9 Bipolar disorder, unspecified; Z51.5 Encounter for palliative care; G89.3 Neoplasm related pain (acute) (chronic); N73.6 Female pelvic peritoneal adhesions (postinfective); E78.5 Hyperlipidemia, unspecified; E87.6 Hypokalemia; G47.33 Obstructive sleep apnea (adult) (pediatric); H40.9 Unspecified glaucoma; I10 Essential (primary) hypertension; F41.0 Panic disorder [episodic paroxysmal anxiety]; K21.9 Gastro-esophageal reflux disease without esophagitis; K58.1 Irritable bowel syndrome with constipation; G89.4 Chronic pain syndrome; M54.9 Dorsalgia, unspecified; M19.90 Unspecified osteoarthritis, unspecified site; M79.7 Fibromyalgia; N83.201 Unspecified ovarian cyst, right side; Z79.82 Long term (current) use of aspirin; Z79.52 Long term (current) use of systemic steroids; Z79.899 Other long term (current) drug therapy; Z87.891 Personal history of nicotine dependence; Z96.612 Presence of left artificial shoulder joint; Z96.653 Presence of artificial knee joint, bilateral; Z98.1 Arthrodesis status; Z87.11 Personal history of peptic ulcer disease; Z87.820 Personal history of traumatic brain injury; Z86.73 Personal history of transient ischemic attack (TIA), and cerebral infarction without residual deficits; Z88.6 Allergy status to analgesic agent; Z88.5 Allergy status to narcotic agent; Z88.7 Allergy status to serum and vaccine; Z88.8 Allergy status to other drugs, medicaments and biological substances
CPT/HCPCS: 36415; 74018; 74177; 80048; 80053; 81003; 83690; 83735; 85025; 85027; 85610; 85730; 86850; 86900; 86901; 94760; 96374; 96375; 96376; 99285

== ENCOUNTER 2022-11-01 13:46 | Inpatient (IN) | payer MEDICARE, OTHER ==
[2022-11-01] MEDS ORDERED: MORPHINE SULFATE 4 MG/ML SYRINGE IVP STA (16:38)
[2022-11-01] MEDS ORDERED: SODIUM CHLORIDE 0.9% 500 ML 500 ML IV STA (16:38)
[2022-11-01] MEDS ORDERED: ONDANSETRON 4 MG/2 ML VIAL IVP STA (16:38)
--- NOTE | 2022-11-01 18:27 | CT ---
EXAMINATION TYPE: CT brain kaelyn marsh DATE OF EXAM: 11/01/2022 COMPARISON: None HISTORY: fall CT DLP: 1390.[address] of the brain was performed. The ventricles, basal cisterns and sulci overlying the cerebral convexities demonstrate mild enlargem ent. There is no evidence for intracranial hemorrhage or sulcal effacement. There is decreased attenuatio n about the periventricular white matter and deep white matter of both cerebral hemispheres, compatib le with chronic small vessel ischemia. No mass effects are seen. If symptoms persist consider MRI. Osseous calvarium is intact. IMPRESSION: 1. Age related atrophic and chronic small vessel ischemic change without acute intracranial process seen at this time. CT Cervical Spine: Unenhanced CT of the cervical spine was performed with bone and soft tissue window settings submitted . Coronal and sagittal reconstruction is obtained. There is normal alignment and prevertebral soft tissues. No evidence for acute cervical fracture . Scattered degenerative disc disease and spondylosis. Biapical scarring. IMPRESSION: 1. No evidence for acute fracture or subluxation of the cervical spine.
--- NOTE | 2022-11-01 18:28 | XR ---
EXAMINATION TYPE: XR abdomen 2V DATE OF EXAM: 11/01/2022 HISTORY: Pain. Technique: 3 views of the abdomen are submitted. Comparison: None. Findings: There is no convincing evidence of pneumoperitoneum. The Bowel gas pattern is nonspecific and nonobstructive. No sizable air-fluid levels are seen. Fecal stasis noted. No mass effects are noted. No renal calcifications are identified. Postoperative changes lumbar spine fusion. IMPRESSION: 1. Nonspecific nonobstructive bowel gas pattern
[2022-11-01 18:30] LABS: Anisocytosis Slight; Basophils % (A) 0 %; Eosinophils # (A) 0.1 k/uL (0-0.7); Eosinophils % (A) 1 %; HCT 26.9 % (34.0-46.0); HGB 8.2 gm/dL (11.4-16.0); Hypochromasia Moderate; Lymphocytes # (A) 1.5 k/uL (1.0-4.8); Lymphocytes % (A) 14 %; MCH 22.4 pg (25.0-35.0); MCHC 30.6 g/dL (31.0-37.0); MCV 73.1 fL (80.0-100.0); Mean Platelet Volume 7.8; Microcytosis Moderate; Monocytes # (A) 0.7 k/uL (0-1.0); Monocytes % (A) 7 %; Neutrophils # (A) 8.1 k/uL (1.3-7.7); Neutrophils % (A) 76 %; Platelet Count 247 k/uL (150-450); Poikilocytosis Slight; RBC 3.68 m/uL (3.80-5.40); RDW 18.7 % (11.5-15.5); WBC 10.7 k/uL (3.8-10.6)
[2022-11-01 18:49] LABS: ALT 19 U/L (4-34); AST 28 U/L (14-36); African American GFR (CKD) >90 (>60 ml/min/1.73 sqM); Albumin 3.8 g/dL (3.5-5.0); Alkaline Phosphatase 80 U/L (38-126); Amylase 65 U/L (30-110); Anion Gap 7 mmol/L; Blood Urea Nitrogen 24 mg/dL (7-17); Calcium 8.4 mg/dL (8.4-10.2); Carbon Dioxide 24 mmol/L (22-30); Chloride 100 mmol/L (98-107); Glucose 101 mg/dL (74-99); Non-African American GFR(CKD) >90 (>60 ml/min/1.73 sqM); Sodium 131 mmol/L (137-145); Total Bilirubin 0.4 mg/dL (0.2-1.3); Total Protein 7.1 g/dL (6.3-8.2)
[2022-11-01 19:05] LABS: Lipase 35 U/L (23-300)
[2022-11-01] MEDS ORDERED: HYDROmorphone 1 MG/ML 1 ML SYRINGE IVP STA (19:07)
[2022-11-01 19:17] LABS: Potassium 4.6 mmol/L (3.5-5.1)
[2022-11-01] MEDS ORDERED: ONDANSETRON 4 MG/2 ML VIAL IVP PRN (19:27)
[2022-11-01] MEDS ORDERED: NALOXONE 0.4 MG/ML 1 ML VIAL IV PRN (19:27)
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
[2022-11-01] MEDS: SODIUM CHLORIDE 0.9% 1,000 ML IV SCH (20:44)
[2022-11-01] MEDS: HYDROmorphone 1 MG/ML 1 ML SYRINGE IVP PRN (23:23)
[2022-11-02] MEDS: HYDROmorphone 1 MG/ML 1 ML SYRINGE IVP PRN ×6 (02:37→20:04)
[2022-11-02] MEDS: SODIUM CHLORIDE 0.9% 1,000 ML IV SCH (09:07)
[2022-11-02] MEDS ORDERED: polyethylene glycoL 3350 17 GM POWD.PACK PO PRN (12:19)
[2022-11-02] MEDS ORDERED: IBUPROFEN 600 MG TAB PO PRN (12:19)
[2022-11-02] MEDS ORDERED: bisacodyL 10 MG SUPP RECTAL PRN (12:19)
[2022-11-02] MEDS ORDERED: PROCHLORPERAZINE 10 MG TAB PO PRN (12:19)
[2022-11-02] MEDS ORDERED: SIMETHICONE 80 MG CHEWABLE PO PRN (12:19)
[2022-11-02] MEDS ORDERED: ONDANSETRON 4 MG TAB PO PRN (12:19)
[2022-11-02] MEDS ORDERED: SCOPOLAMINE 1 MG/72 HR PATCH TRANSDERM PRN (12:19)
[2022-11-02] MEDS ORDERED: LORazepam 0.5 MG TAB PO PRN (12:19)
[2022-11-02] MEDS ORDERED: ACETAMINOPHEN TAB 500 MG TAB PO PRN (12:19)
[2022-11-02] MEDS: PANTOPRAZOLE 40 MG TABLET PO SCH (12:43)
[2022-11-02] MEDS: GABAPENTIN 300 MG CAP PO SCH ×3 (12:43→21:13)
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
[2022-11-02] MEDS: DICYCLOMINE 10 MG CAP PO SCH ×2 (16:22→21:08)
[2022-11-02 18:01] LABS: Amorphous Sediment,Urine Rare /hpf; Bacteria,Urine Few /hpf; Mucus,Urine Rare /hpf; RBC,Urine 1 /hpf (0-5); Squamous Epithelial Cell,Urine 3 /hpf (0-4); WBC,Urine 5 /hpf (0-5)
[2022-11-02 18:55] LABS: Appearance,Urine Clear (Clear); Blood,Urine Negative (Negative); Color,Urine Yellow; Glucose,Urine (UA) Negative (Negative); Ketones,Urine Negative (Negative); PH, Urine 6.5 (5.0-8.0); Protein,Urine Negative (Negative); Specific Gravity,Urine 1.017 (1.001-1.035)
[2022-11-02 18:56] LABS: Bilirubin,Urine Negative (Negative); Leukocyte Esterase,Urine Negative (Negative); Nitrite,Urine Negative (Negative); Urobilinogen,Urine <6.5 mg/dL (<2.0)
[2022-11-02] MEDS ORDERED: MIRTAZAPINE 45 MG TABLET PO SCH (21:00)
[2022-11-02] MEDS ORDERED: DULoxetine HCL 60 MG CAPSULE.DR PO SCH (21:00)
[2022-11-02] MEDS ORDERED: MAGNESIUM OXIDE 400 MG TAB PO SCH (21:00)
[2022-11-02] MEDS ORDERED: LATANOPROST 0.005% OPHTH DROPS 2.5 ML BTL BOTH EYES SCH (21:00)
[2022-11-02] MEDS ORDERED: MELATONIN 5 MG TABLET PO SCH (21:00)
[2022-11-02] MEDS: FLUTICASONE 50MCG/SPRAY NASAL 16GM EA NOSTRIL SCH (21:08)
[2022-11-02] MEDS: busPIRone HCl 10 MG TAB PO SCH (21:08)
[2022-11-02] MEDS: SENNOSIDES-DOCUSATE SODIUM 1 EACH TAB PO SCH (21:08)
[2022-11-03] MEDS: SODIUM CHLORIDE 0.9% 1,000 ML IV SCH (05:25)
[2022-11-03 07:50] VITALS: BP 105/59; PULSE 91; RESP 18; TEMP 98.8
[2022-11-03] MEDS: HYDROmorphone 1 MG/ML 1 ML SYRINGE IVP PRN ×2 (08:06→11:29)
[2022-11-03] MEDS: PANTOPRAZOLE 40 MG TABLET PO SCH (08:06)
[2022-11-03] MEDS ORDERED: THIAMINE 100 MG TAB PO SCH (09:00)
[2022-11-03] MEDS ORDERED: ASPIRIN 81 MG PO SCH (09:00)
[2022-11-03] MEDS: GABAPENTIN 300 MG CAP PO SCH (09:44)
[2022-11-03] MEDS: DICYCLOMINE 10 MG CAP PO SCH (09:44)
[2022-11-03] MEDS: busPIRone HCl 10 MG TAB PO SCH (09:44)
[2022-11-03] MEDS: SENNOSIDES-DOCUSATE SODIUM 1 EACH TAB PO SCH (09:44)
[2022-11-03] MEDS: FLUTICASONE 50MCG/SPRAY NASAL 16GM EA NOSTRIL SCH (09:46)
[2022-11-03] MEDS ORDERED: MULTIVITAMINS, THERA 1 EACH TAB PO SCH (12:00)
[2022-11-03] MEDS ORDERED: FOLIC ACID 1 MG TAB PO SCH (12:00)
== END 2022-11-03 13:51 | disposition other institution (70) | DRG 375 ==
LOC: EC 13:46 → 5NMEDONC 19:30
PROVIDERS: ADMIT Hospitalist; ATTEND Hospitalist
DX: C18.9 Malignant neoplasm of colon, unspecified (principal); C79.9 Secondary malignant neoplasm of unspecified site; E78.5 Hyperlipidemia, unspecified; D64.9 Anemia, unspecified; M79.7 Fibromyalgia; F31.9 Bipolar disorder, unspecified; F41.0 Panic disorder [episodic paroxysmal anxiety]; G40.909 Epilepsy, unspecified, not intractable, without status epilepticus; G89.29 Other chronic pain; G47.30 Sleep apnea, unspecified; K21.9 Gastro-esophageal reflux disease without esophagitis; R29.6 Repeated falls; Z79.899 Other long term (current) drug therapy; Z79.82 Long term (current) use of aspirin; Z86.73 Personal history of transient ischemic attack (TIA), and cerebral infarction without residual deficits; Z87.11 Personal history of peptic ulcer disease; Z87.19 Personal history of other diseases of the digestive system; Z86.010 Personal history of colon polyps; Z87.828 Personal history of other (healed) physical injury and trauma; Z90.710 Acquired absence of both cervix and uterus; Z93.3 Colostomy status; M19.90 Unspecified osteoarthritis, unspecified site; Z96.612 Presence of left artificial shoulder joint; Z96.653 Presence of artificial knee joint, bilateral; Z98.1 Arthrodesis status; Z98.42 Cataract extraction status, left eye; Z98.41 Cataract extraction status, right eye; Z88.6 Allergy status to analgesic agent; Z88.7 Allergy status to serum and vaccine
CPT/HCPCS: 36415; 70450; 72125; 74019; 80053; 81003; 82150; 83605; 83690; 85025